=== PATIENT | female | born 1970 ===

== ENCOUNTER → 2020-09-15 11:56 | Outpatient (BNVA) | payer OTHER, SELFPAY | PROVIDERS: PCP Family Medicine; Referring Provider Family Medicine; Visit Provider Orthopaedic Surgery | DX: G89.29 Other chronic pain (principal); M25.561 Pain in right knee; M25.562 Pain in left knee; M79.7 Fibromyalgia | CPT/HCPCS: 20610; 99213; J1100 ==

== ENCOUNTER → 2021-02-10 14:54 | Outpatient (BNVA) | payer OTHER, SELFPAY | PROVIDERS: PCP Family Medicine; Referring Provider Family Medicine; Visit Provider Student in an Organized Health Care Education/Training Program | DX: M79.7 Fibromyalgia (principal) | CPT/HCPCS: 99212 ==

== ENCOUNTER 2021-03-04 13:35 | Emergency (ER) | payer OTHER, SELFPAY ==
[2021-03-04 13:43] VITALS: BP 117/80; PULSE 80; RESP 18; TEMP 528.8; TEMP 984; O2SAT 100; BMI 33.3
[2021-03-04 14:59] VITALS: BP 114/74; PULSE 61; RESP 18; TEMP 36.6; O2SAT 100
[2021-03-04 15:56] LABS: MANUAL DIFF FLAG NO
[2021-03-04 15:57] LABS: Basophils Percent Auto 0.1 % (0-2); Eosinophils Absolute Auto 0.4 X10*3/uL (0.0-0.4); Eosinophils Percent Auto 3.8 % (0-4); Hematocrit 42.6 % (37-47); Hemoglobin 13.5 g/dl (12.0-16.0); Imm Gran Abs Auto 0.02 X10*3/uL (0.00-0.03); Imm Gran Pct Auto 0.2 % (0.0-0.4); Lymphocytes Absolute Auto 2.9 X10*3/uL (1.2-4.9); Lymphocytes Percent Auto 29.6 % (20-40); Mean Corpuscular HGB Conc 31.7 g/dl (31.0-35.0); Mean Corpuscular Hemoglobin 27.3 pg (27.0-33.0); Mean Corpuscular Volume 86.1 fL (80-98); Mean Platelet Volume 10.4 fL (9.4-12.3); Monocytes Absolute Auto 0.8 X10*3/uL (0.1-1.2); Monocytes Percent Auto 8.3 % (2-11); Neutrophils Absolute Auto 5.7 X10*3/uL (2.0-8.3); Platelet Count 248 X10*3/uL (160-400); Red Blood Count 4.95 X10*6/uL (4.20-5.50); White Blood Count 9.8 X10*3/uL (4.8-10.8)
[2021-03-04 15:58] VITALS: BP 120/68; PULSE 54; RESP 18; TEMP 36.4; O2SAT 100
--- NOTE | 2021-03-04 16:14 | ED.GENADULT ---
HPI - General Adult General Chief complaint: Recheck/Abnormal Lab/Rx Stated complaint: HIGH BP Time Seen by Provider: 03/04/21 15:01 Source: patient Mode of arrival: ambulatory Limitations: no limitations History of Present Illness HPI narrative: 51 y/o female with history of hypertension, fibromyalgia, depression who presents to the ED with reports of an episode of high blood pressure at home along with left sided neck soreness and left sided abdominal pain. She states her usual BP is 110/80's. She is on Lisinopril 5 mg. She states earlier today she got some neck pain, palpitations and left sided abdominal pain. She took her blood pressure and it was 133/71 which was very high for her. She got her 2nd COVID vaccine last Saturday and has been having some muscle pains and fatigue since then. She had a fever 1x on but none since. No chest pain, SOB, JOANIE, N/V/D. On arrival her BP is normal. She still reports some mild left flank and abdominal discomfort when she presses on her belly. complaint: high blood pressure Onset (ago): hour(s) Location: head, neck and abdomen Radiation: neck and abdomen Severity: moderate Quality: aching Pain Consistency: intermittent Relieving factors: none Exacerbating factors: movement Associated symptoms: denies other symptoms Treatments prior to arrival: none Related Data Home Medications Medication Instructions Recorded Confirmed [id number]-[id number]-omcljprh 250 1 tab PO Q4-6H PRN 09/14/20 02/10/21 mg-250 mg-65 mg tablet atorvastatin 20 mg tablet 20 mg PO DAILY 09/14/20 02/10/21 baclofen 10 mg tablet 10 mg PO DAILY 09/14/20 02/10/21 buspirone 5 mg tablet 5 mg PO BID 09/14/20 02/10/21 fluoxetine 60 mg tablet 30 mg PO DAILY 09/14/20 02/10/21 lisinopril 5 mg tablet 5 mg PO DAILY 09/14/20 02/10/21 omeprazole 20 mg capsule,delayed 20 mg PO DAILY 09/14/20 02/10/21 release trazodone 50 mg tablet 25 mg PO DAILY 09/14/20 02/10/21 Previous Rx's Medication Instructions Recorded leg brace #1 ea 09/27/20 leg brace #1 ea 09/27/20 leg brace #1 ea 09/28/20 leg brace #1 ea 09/28/20 Allergies Allergy/AdvReac Type Severity Reaction Status Date / Time shrimp [SHRIMP] Allergy Unknown UNKNOWN Verified 03/04/21 13:43 Review of Systems Review of Systems: Constitutional: No Fever, No Chills ENT/Mouth: No sore throat, No Rhinorrhea Cardiovascular: No Chest Pain, No SOB Respiratory: No Cough, No Sputum, No Wheezing, No dyspnea Gastrointestinal: No Nausea, No Vomiting, No Diarrhea, + abdominal Pain, No Hematochezia, No Melena Genitourinary: No Dysuria, No Urinary Frequency, No Hematuria Musculoskeletal: + joint pain, + Myalgias Skin: No Skin Lesions, No rash Neuro: No Weakness, No Numbness, No Dizziness, No Headache Psych: + Anxiety/Panic, + Depression Heme/Lymph: No Bruising, No Lymphadenopathy Endocrine: No Polyuria, No Polydipsia PMFSH Past Medical History Attestation statement: The following information was validated with the patient. Medical History Bilateral knee pain Chronic pain Fibromyalgia Surgical History H/O section H/O lateral meniscus repair of left knee History of hysterectomy Social History Social History (Updated 02/10/21 @ 15:01 by Douglas Nguyen LPN) Alcohol intake: never Smoking Status: Never smoker Advance Directives: Yes Advance Directives Information Provided: Yes Advance Directives on File: No Current occupation: Right Handed Physical Exam Vital Signs: Vital Signs: Last Vital Signs Temp 97.6 F 03/04/21 15:58 Pulse 54 03/04/21 15:58 Resp 18 03/04/21 15:58 BP 120/68 03/04/21 15:58 Pulse Ox 100 03/04/21 15:58 Body Mass Index 33.3 Appearance: Alert. Oriented X3. No acute distress. Eyes: Pupils equal, round and reactive to light. ENT: Pharynx normal. Neck: Normal inspection. Neck supple. CVS: Normal heart rate and rhythm. Pulses normal. Respiratory: No respiratory distress. Breath sounds normal. Abdomen: Obese, Soft with mild LLQ tenderness to deep palpation, no rebound or guarding, normal BS x4, no CVA tenderness Skin: Skin warm and dry. Normal skin color. Normal skin turgor. No rashes. Extremities: No lower extremity edema. Neuro: Oriented X 3. No motor deficit. No sensory deficit. Course Course Course Narrative: 51 y/o female presenting with high blood pressure at home along with brief episode of palpitations in her chest and neck and left sided abdominal pain. She is vitally within normal limits with a reassuring examination. Suspect anxiety is contributing, possible residual effects from recent COVID vaccination. No N/V/D or chest pain. Will get basic lab workup and monitor for any recurrence of symptoms. Reevaluation(s) Reevaluation #1: Lab workup unremarkable. Patient sleeping comfortably. UA pending, if negative will d/c home. Medical Decision Making Lab Data Result diagrams: 03/04/21 15:50 03/04/21 15:50 Labs: Lab Results 03/04/21 03/04/21 03/04/21 Range/Units 15:50 15:50 15:50 WBC 9.8 (4.8-10.8) X10*3/uL RBC 4.95 (4.20-5.50) X10*6/uL Hgb 13.5 (12.0-16.0) g/dl Hct 42.6 (37-47) % MCV 86.1 (80-98) fL MCH 27.3 (27.0-33.0) pg MCHC 31.7 (31.0-35.0) g/dl RDW 14.0 (11.0-16.0) % Plt Count 248 (160-400) X10*3/uL MPV 10.4 (9.4-12.3) fL Immature Gran % (Auto) 0.2 (0.0-0.4) % Neut % (Auto) 58.0 (45-73) % Lymph % (Auto) 29.6 (20-40) % [place] % (Auto) 8.3 (2-11) % Eos % (Auto) 3.8 (0-4) % Baso % (Auto) 0.1 (0-2) % Lymph # (Auto) 2.9 (1.2-4.9) X10*3/uL [place] # (Auto) 0.8 (0.1-1.2) X10*3/uL Eos # (Auto) 0.4 (0.0-0.4) X10*3/uL Baso # (Auto) 0.0 (0.0-0.2) X10*3/uL Abs Immat Gran (auto) 0.02 (0.00-0.03) X10*3/uL Absolute Neuts (auto) 5.7 (2.0-8.3) X10*3/uL Absolute Nucleated RBC 0.000 (0.0-0.012) X10*3/uL Nucleated RBC % (auto) 0.0 (0.0-0.2) /100WBC Hold Blue Top SEE NOTE Sodium 141 (135-145) mmol/L Potassium 3.9 (3.3-5.1) mmol/L Chloride 104 (96-108) mmol/L Carbon Dioxide 26 (22-29) mmol/L Anion Gap 15 (12-20) BUN 12 (9-16) mg/dL Creatinine 0.72 (0.5-1.4) mg/dL Estim Creat Clear Calc 100.5 Estimated GFR > 60 Random Glucose 80 (60-115) mg/dL Calcium 9.1 (8.4-10.2) mg/dL Magnesium 2.1 (1.6-2.6) mg/dL Total Bilirubin 0.3 (0.0-1.0) mg/dL Direct Bilirubin < 0.2 (0.0-0.5) mg/dL AST 23 (5-31) U/L ALT 41 H (0-31) U/L Alkaline Phosphatase 167 H (39-117) U/L Total Protein 7.1 (6.5-8.0) g/dL Albumin 4.2 (3.5-5.0) g/dL Critical Care Time Critical Care Time Critical Care Time: No Discharge Plan Discharge Patient Disposition: Home, Self-Care Additional Instructions: Your blood pressure was NORMAL while you were in the ER. Your blood workup was normal. Recommend following up with your doctor next week as needed. Prescriptions: No Action (DME) Knee Support Brace Misc See Rx Instructions .ROUTE .MEDSUPPLY Qty: 1 RF: 0 (DME) Knee Support Brace Misc See Rx Instructions .ROUTE .MEDSUPPLY Qty: 1 RF: 0 (DME) Knee Support Brace Misc See Rx Instructions .ROUTE .MEDSUPPLY Qty: 1 RF: 0 (DME) Knee Support Brace Misc See Rx Instructions .ROUTE .MEDSUPPLY Qty: 1 RF: 0 omeprazole 20 mg capsule,delayed release(DR/EC) 20 mg PO DAILY RF: 0 Excedrin Migraine 250-250-65 mg tablet 1 tab PO Q4-6H PRNRF: 0 trazodone 50 mg tablet 25 mg PO DAILY RF: 0 buspirone 5 mg tablet 5 mg PO BID RF: 0 baclofen 10 mg tablet 10 mg PO DAILY RF: 0 lisinopril 5 mg tablet 5 mg PO DAILY RF: 0 atorvastatin 20 mg tablet 20 mg PO DAILY RF: 0 fluoxetine 60 mg tablet 30 mg PO DAILY RF: 0
[2021-03-04 16:33] LABS: Alanine Aminotransferase 41 U/L (0-31); Albumin Level 4.2 g/dL (3.5-5.0); Alkaline Phosphatase 167 U/L (39-117); Anion Gap 15 (12-20); Aspartate Amino Transferase 23 U/L (5-31); Bilirubin Direct < 0.2 mg/dL (0.0-0.5); Bilirubin Total 0.3 mg/dL (0.0-1.0); Blood Urea Nitrogen 12 mg/dL (9-16); Calcium 9.1 mg/dL (8.4-10.2); Carbon Dioxide 26 mmol/L (22-29); Chloride 104 mmol/L (96-108); Creatinine Clr Calc Pharmacy 100.5; Estimated Glomerular Filt Rate > 60; Glucose Random 80 mg/dL (60-115); Magnesium 2.1 mg/dL (1.6-2.6); Potassium 3.9 mmol/L (3.3-5.1); Sodium 141 mmol/L (135-145); Total Protein 7.1 g/dL (6.5-8.0)
[2021-03-04 17:18] LABS: Glucose Urine UA NEG (NEG); Leukocyte Esterase Urine NEG (NEG); Nitrite Urine NEG (NEG); Urine Blood NEG (NEG); Urine Ketones NEG (NEG); Urine Protein NEG (NEG-TRACE)
[2021-03-04 17:27] LABS: Appearance Urine CLEAR; Color Urine YELLOW
== END 2021-03-04 17:36 | disposition home or self-care (01) ==
PROVIDERS: Physician Assistant; Emergency Provider Emergency Medicine Emergency Medical Services; PCP Registered Nurse
DX: Z03.89 Encounter for observation for other suspected diseases and conditions ruled out (principal); M54.2 Cervicalgia; Z79.82 Long term (current) use of aspirin; Z79.02 Long term (current) use of antithrombotics/antiplatelets; Z79.899 Other long term (current) drug therapy
CPT/HCPCS: 36415; 80048; 80076; 81003; 83735; 85025; 99283

== ENCOUNTER 2021-07-10 08:57 | Outpatient (REF) | payer OTHER, SELFPAY ==
--- NOTE | ~2021-07-10 | US_ITS ---
EXAMINATION: US ABDOMEN COMPLETE CLINICAL INFORMATION: Abdominal pain. COMPARISON: CT abdomen and pelvis 09/21/2019 TECHNIQUE: Real-time imaging of the abdominal viscera. FINDINGS: PANCREAS: Partially obscured by overlying bowel gas. ABDOMINAL AORTA: The proximal, mid, and distal segments are normal in caliber. INFERIOR VENA CAVA: Visualized portions are normal. LIVER: The liver is normal in size. The liver contour is normal. There is diffuse increased liver parenchymal echogenicity, consistent with hepatic steatosis. No focal hepatic lesion. There is no intrahepatic biliary duct dilatation seen. GALLBLADDER: Surgically absent. COMMON BILE DUCT: Normal in caliber measuring 0.4 cm in diameter. RIGHT KIDNEY: Normal. No hydronephrosis. No renal calculi or focal parenchymal lesions. The kidney measures 11.4 cm in maximum dimension. LEFT KIDNEY: Normal. No hydronephrosis. No renal calculi or focal parenchymal lesions. The kidney measures 10.8 cm in maximum dimension. SPLEEN: Normal. The spleen measures 10.1 cm in maximum dimension. FREE FLUID: None. US/US abdomen complete IMPRESSION: Hepatic steatosis. No new hepatic parenchymal lesion or biliary ductal dilatation. Otherwise unremarkable examination.
== END 2021-07-10 08:58 | disposition home or self-care (01) ==
LOC: HO.US 08:57
PROVIDERS: Visit Provider Registered Nurse
DX: R10.9 Unspecified abdominal pain (principal); Z90.49 Acquired absence of other specified parts of digestive tract
CPT/HCPCS: 76700

== ENCOUNTER 2021-07-17 12:32 | Outpatient (REF) | payer OTHER, SELFPAY ==
--- NOTE | ~2021-07-17 | MM_ITS ---
EXAMINATION: MM SCREENING DIGITAL BREAST TOMOSYNTHESIS, BILATERAL CLINICAL INFORMATION: Screening. Asymptomatic. The lifetime risk of breast cancer based on the Tyrer-Cuzick Model is 7%. COMPARISON: Mammography: 07/16/2020, 01/28/2019, 01/15/2018, 01/06/2018 TECHNIQUE: Digital breast tomosynthesis is performed in both the craniocaudal and mediolateral oblique views along with computer-aided detection (CAD). Synthesized 2D images are generated from the tomosynthesis. FINDINGS: There are scattered areas of fibroglandular density (ACR BI-RADS breast composition Category b). There are no significant masses, abnormal calcifications, or other abnormalities. Parenchymal pattern is similar to prior studies. No developing density. The axilla and skin contours are unremarkable. MM/MM tomosynthesis screening BI IMPRESSION: No mammographic evidence of malignancy. ASSESSMENT: BI-RADS 1: Negative RECOMMENDATION: Routine annual mammography screening. This patient's information was entered into a reminder system with a target due date for their next mammogram.
== END 2021-07-17 12:33 | disposition home or self-care (01) ==
LOC: HO.MAMMO 12:32
PROVIDERS: PCP Registered Nurse; Visit Provider Registered Nurse
DX: Z12.31 Encounter for screening mammogram for malignant neoplasm of breast (principal)
CPT/HCPCS: 77063; 77067

== ENCOUNTER 2021-08-01 12:39 | Outpatient (REF) | payer OTHER, SELFPAY ==
--- NOTE | ~2021-08-01 | XR_ITS ---
EXAMINATION: CHEST AND CERVICAL SPINE. CLINICAL INFORMATION: Cough and neck pain. COMPARISON: None TECHNIQUE: 2 views chest. 7 views cervical spine FINDINGS: CHEST: Both lungs are fairly well-expanded and clear of acute process. Heart size and pulmonary vascularity is normal. No gross bony abnormality seen. CERVICAL SPINE: There is normal cervical lordosis. The vertebral heights, alignment and disc heights are normal. The neural foramina are patent bilaterally. There is no visible fracture, dislocation or subluxation seen. The prevertebral soft tissues are normal. XR/XR cervical spine min 6V IMPRESSION: Unremarkable chest exam. Unremarkable cervical spine exam.
--- NOTE | ~2021-08-01 | XR_ITS ---
EXAMINATION: CHEST AND CERVICAL SPINE. CLINICAL INFORMATION: Cough and neck pain. COMPARISON: None TECHNIQUE: 2 views chest. 7 views cervical spine FINDINGS: CHEST: Both lungs are fairly well-expanded and clear of acute process. Heart size and pulmonary vascularity is normal. No gross bony abnormality seen. CERVICAL SPINE: There is normal cervical lordosis. The vertebral heights, alignment and disc heights are normal. The neural foramina are patent bilaterally. There is no visible fracture, dislocation or subluxation seen. The prevertebral soft tissues are normal. XR/XR chest 2V IMPRESSION: Unremarkable chest exam. Unremarkable cervical spine exam.
[2021-08-02 08:24] LABS: HBsAGNum1 0.31 S/CO (0.00-0.99); Hepatitis B Surface Antigen Negative (Negative)
[2021-08-02 08:26] LABS: ~HepC Num1 0.25 S/CO (0.00-0.79); ~Hepatitis C Antibody Nonreactive (Nonreactive)
== END 2021-08-01 12:40 | disposition home or self-care (01) ==
LOC: HO.XRAY 12:39
PROVIDERS: PCP General Practice; Visit Provider General Practice
DX: M54.2 Cervicalgia (principal); R05 Cough
CPT/HCPCS: 36415; 71046; 72052; 86803; 87340

== ENCOUNTER → 2021-09-26 09:26 | Outpatient (BNVA) | payer OTHER, SELFPAY | PROVIDERS: PCP General Practice; Referring Provider General Practice; Visit Provider Internal Medicine | DX: E78.5 Hyperlipidemia, unspecified (principal); I10 Essential (primary) hypertension; R07.2 Precordial pain; R06.02 Shortness of breath; Z82.49 Family history of ischemic heart disease and other diseases of the circulatory system | CPT/HCPCS: 93005; 99202 ==

== ENCOUNTER → 2021-10-04 10:15 | Outpatient (BNVA) | payer OTHER, SELFPAY | PROVIDERS: PCP General Practice; Visit Provider Internal Medicine Pulmonary Disease | DX: G47.33 Obstructive sleep apnea (adult) (pediatric) (principal); R06.02 Shortness of breath | CPT/HCPCS: 99202 ==

== ENCOUNTER → 2021-11-06 11:01 | Outpatient (REF) | payer OTHER, SELFPAY ==
--- NOTE | 2021-11-06 16:27 | PFT_ITS ---
Forced vital capacity, FEV1, SRC18-99, and MVV are all normal. Post bronchodilator therapy, there is no significant change. Total lung capacity is slightly increased. Residual volume normal. Diffusion capacity normal. CONCLUSION: Normal pulmonary function test. No evidence of obstructive or restrictive pulmonary disorder. Michelle Harp MD MSB/MODL / [id number]
== END ==
LOC: HO.SL 11:01
PROVIDERS: PCP General Practice; Visit Provider Internal Medicine Pulmonary Disease
DX: G47.33 Obstructive sleep apnea (adult) (pediatric) (principal); R06.02 Shortness of breath
CPT/HCPCS: 94060; 94727; 94729; 95806

== ENCOUNTER → 2021-11-30 11:48 | Outpatient (BNVA) | payer OTHER, SELFPAY | PROVIDERS: PCP General Practice; Visit Provider Internal Medicine Pulmonary Disease | DX: J45.909 Unspecified asthma, uncomplicated (principal); G47.33 Obstructive sleep apnea (adult) (pediatric) | CPT/HCPCS: 99212 ==

== ENCOUNTER 2022-02-07 10:21 | Emergency (ER) | payer OTHER, SELFPAY ==
--- NOTE | ~2022-02-07 | CT_ITS ---
EXAMINATION: CT ABDOMEN AND PELVIS WITHOUT CONTRAST CLINICAL INFORMATION: Lower abdominal pain COMPARISON: Ultrasound abdomen 07/10/2021 None TECHNIQUE: Multidetector volumetric imaging was performed from the superior aspect of the liver through the pubic symphysis. Sagittal and coronal reformatted images were obtained on the technologist's workstation. Patient refused IV contrast. This CT examination was performed using dose optimization techniques as appropriate, variously including the following: *Automated exposure control *Adjustment of mA and/or kV according to patient size (this includes techniques or standardized protocols for targeted exams where dose is matched to indication/reason for exam; i.e. extremities or head) *Use of iterative reconstruction technique DLP: 709. mGy-cm FINDINGS: LUNG BASES: There is minimal groundglass attenuation lung bases likely compressive atelectasis. Speck small hiatal hernia. LIVER, GALLBLADDER, AND BILIARY TREE: The liver is normal in size, shape, and attenuation. No focal hepatic lesion or biliary ductal dilatation is present. The gallbladder has been surgically removed. PANCREAS: Unremarkable. SPLEEN: Unremarkable. ADRENAL GLANDS: Unremarkable. KIDNEYS AND URETERS: The kidneys are normal in size, shape, and attenuation. No hydronephrosis, hydroureter, or calculi seen. No perinephric stranding. BLADDER: Unremarkable. GASTROINTESTINAL TRACT: There is scattered stool and gas seen throughout the colon without any significant distention. The small bowel loops are normal caliber. Appendix is normal caliber. ABDOMINAL WALL: No significant hernia is appreciated. LYMPH NODES: Normal. VASCULAR: Unremarkable. PELVIC VISCERA: Unremarkable. OSSEOUS STRUCTURES: No lytic or sclerotic process seen. CT/CT abdomen pelvis wo con IMPRESSION: No acute intra-abdominal process seen. Mild constipation. Fleischner guidelines were followed.
[2022-02-07 10:23] VITALS: BP 115/67; PULSE 65; RESP 18; TEMP 36.4; O2SAT 100; BMI 45.4
--- NOTE | 2022-02-07 11:04 | ED_ITS ---
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 Mode of arrival: ambulatory Limitations: no limitations History of Present Illness HPI narrative: 3 days of burning lower abdominal pain and black stools - did take pepto bismol at one point, has hx of ventral hernias as well c/o pain at those sites MD elicited complaint: abdominal pain Pertinent past history: gastritis Onset (ago): day(s) (3) Pain Consistency: constant Location: periumbilical Severity: moderate Quality: burning Radiation: none Migration to: no migration Exacerbating factors: eating Relieving factors: nothing Associated symptoms: nausea and melena Treatments prior to arrival: antacids Related Data Home Medications Medication Instructions Recorded Confirmed qjobkdr-fyjesvmfmzybj-icnwzarq 250 1 tab PO Q4-6H PRN 09/14/20 09/26/21 mg-250 mg-65 mg tablet (Excedrin Migraine) atorvastatin 20 mg tablet 20 mg PO DAILY 09/14/20 09/26/21 baclofen 10 mg tablet 10 mg PO DAILY 09/14/20 09/26/21 buspirone 5 mg tablet 5 mg PO BID 09/14/20 09/26/21 fluoxetine 60 mg tablet 30 mg PO DAILY 09/14/20 09/26/21 lisinopril 5 mg tablet 5 mg PO DAILY 09/14/20 09/26/21 omeprazole 20 mg capsule,delayed 20 mg PO DAILY 09/14/20 09/26/21 release trazodone 50 mg tablet 25 mg PO DAILY 09/14/20 09/26/21 Previous Rx's Medication Instructions Recorded leg brace (Knee Support Brace) #1 ea 09/27/20 leg brace (Knee Support Brace) #1 ea 09/28/20 fluticasone furoate 200 1 inh INHALATION DAILY 30 Days #1 11/30/21 mcg-vilanterol 25 mcg/dose ea inhalation powder (Breo Ellipta) lactulose 10 gram/15 mL oral 10 g (15 mL) PO DAILY PRN #237 ml 02/07/22 solution Allergies Allergy/AdvReac Type Severity Reaction Status Date / Time shrimp [SHRIMP] Allergy Unknown UNKNOWN Verified 11/30/21 11:50 Review of Systems Review of Systems Constitutional : No Weight loss, No Fever, No Chills ENT/Mouth : No sore throat, No Rhinorrhea Eyes: No Swelling, No Redness Cardiovascular : No Chest Pain, No SOB, NoEdema Respiratory : No Cough, No Sputum, No Wheezing Gastrointestinal : Positive Nausea, no Vomiting, no Diarrhea, positive abdominal Pain, No Hematochezia, pos Melena Genitourinary : No Dysuria, No Urinary Frequency, No Hematuria, No Urgency Musculoskeletal : No joint pain, No Myalgias, No Joint Swelling Skin : No Skin Lesions, No rash Neuro : No Weakness, No Numbness, No Dizziness, No Headache Psych : No Anxiety/Panic, No Depression Heme/Lymph: No Bruising, No Lymphadenopathy Endocrine : No Polyuria, No Polydipsia All other systems reviewed and are negative. [facility] Past Medical History Attestation statement: The following information was validated with the patient. Medical History Bilateral knee pain Chronic pain Essential hypertension Family history of coronary artery disease Fibromyalgia Other and unspecified hyperlipidemia Surgical History H/O section H/O lateral meniscus repair of left knee History of cholecystectomy History of hysterectomy Family History Family History (Updated 09/26/21 @ 09:41 by MARISOL Shepard) Father History of open heart surgery Brother Hypertension Social History Social History Alcohol intake: never Patient Tobacco Use Status: Never used Tobacco Advance Directives: No Advance Directives Information Provided: No Patient : No Current occupation: Right Handed Physical Exam ED Vital Signs: Vital Signs - 24 hr 02/07/22 10:23 02/07/22 11:13 Temperature 97.5 F Pulse Rate 65 65 Respiratory Rate 18 16 Blood Pressure 115/67 110/71 Pulse Oximetry 100 100 BMI result Body Mass Index 45.4 Appearance: Alert. Oriented X3. No acute distress. Eyes: Pupils equal, round and reactive to light. ENT: Pharynx normal. Neck: Normal inspection. Neck supple. CVS: Normal heart rate and rhythm. Pulses normal. Respiratory: No respiratory distress. Breath sounds normal. Abdomen: Soft with mild distention ttp in lower abdomen no mass felt Rectal: light brown stool Skin: Skin warm and dry. Normal skin color. Normal skin turgor. Extremities: No lower extremity edema. No calf ttp Neuro: Oriented X 3. No motor deficit. No sensory deficit. Course Course Course Narrative: labs stable eating yogurt, CT scan negative, refused pain medications, guiac negative MDM - Abdominal Pain MDM Narrative Medical decision making narrative: 51 yo female with hx of GERD on omeprazole, allergic rhinitis, asthma, mirgraines, LEAH, chest pain, HLD here with c/o lower abdominal pain with dark stools at this time will need labs, CT scan for mass, dark stools could be related to pepto bismol - will obtain guiac, IVF IV morphine for pain, GI cocktail. Dispo per results and findings. Lab Data Result diagrams: 02/07/22 11:06 02/07/22 11:06 Labs: Lab Results 02/07/22 02/07/22 02/07/22 Range/Units 11:06 11:06 11:42 WBC 9.4 (4.8-10.8) X10*3/uL RBC 4.57 (4.20-5.50) X10*6/uL Hgb 12.3 (12.0-16.0) g/dl Hct 40.0 (37.0-47.0) % MCV 87.5 (80.0-98.0) fL MCH 26.9 L (27.0-33.0) pg MCHC 30.8 L (31.0-35.0) g/dl RDW 14.2 (11.0-16.0) % Plt Count 276 (160-400) X10*3/uL MPV 10.3 (9.4-12.3) fL Immature Gran % (Auto) 0.2 (0.0-0.4) % Neut % (Auto) 59.5 (45-73) % Lymph % (Auto) 30.4 (20-40) % [place] % (Auto) 7.2 (2-11) % Eos % (Auto) 2.5 (0-4) % Baso % (Auto) 0.2 (0-2) % Lymph # (Auto) 2.9 (1.2-4.9) X10*3/uL [place] # (Auto) 0.7 (0.1-1.2) X10*3/uL Eos # (Auto) 0.2 (0.0-0.4) X10*3/uL Baso # (Auto) 0.0 (0.0-0.2) X10*3/uL Abs Immat Gran (auto) 0.02 (0.00-0.03) X10*3/uL Absolute Neuts (auto) 5.6 (2.0-8.3) x10*3/uL Absolute Nucleated RBC 0.000 (0.0-0.012) X10*3/uL Nucleated RBC % (auto) 0.0 (0.0-0.2) /100WBC Sodium 139 (135-145) mmol/L Potassium 4.5 (3.3-5.1) mmol/L Chloride 103 (96-108) mmol/L Carbon Dioxide 28 (22-29) mmol/L Anion Gap 13 (12-20) BUN 15 (9-16) mg/dL Creatinine 0.72 (0.5-1.4) mg/dL Estim Creat Clear Calc 119.4 Estimated GFR > 60 Random Glucose 101 (60-115) mg/dL Calcium 9.8 D (8.4-10.2) mg/dL Total Bilirubin 0.5 (0.0-1.0) mg/dL AST 17 (5-31) U/L ALT 28 (0-31) U/L Alkaline Phosphatase 131 H D (39-117) U/L Total Protein 7.3 (6.5-8.0) g/dL Albumin 4.2 (3.5-5.0) g/dL Lipase 42 (8-78) U/L Stool Occult Blood NEGATIVE (NEGATIVE) ECG Data Attestation: I personally reviewed and interpreted this ECG as follows: ECG interpretation date: 02/07/22 ECG interpretation time: 11:41 Interpretation: Rate: 50 Rhythm: sinus bradycardia [place]: normal Normal P waves. Normal HARSH. Normal QRS complex. ST T wave : normal no EMELIA qTC: normal prior studies: no acute ischemia The study has been interpreted contemporaneously by me. . Discharge Plan Discharge Clinical Impression: Abdominal pain Qualifiers: Abdominal location: lower abdomen, unspecified Qualified Code(s): R10.30 - Low er abdominal pain, unspecified Constipation Qualifiers: Constipation type: unspecified constipation type Qualified Code(s): K59.00 - Constipation, unspecified Gastritis Qualifiers: Gastritis type: unspecified gastritis Chronicity: acute Gastritis bleeding: without bleeding Qualified Code(s): K29.00 - Acute gastritis without bleeding Patient Disposition: Home, Self-Care Instructions: Gastritis (ED), Constipation (ED), Abdominal Pain (ED) Additional Instructions: OMEPRAZOLE 2OMG 2 VECES AL MAGANA POR YAMILETH MAGANA Prescriptions: New lactulose 10 gram/15 mL solution 10 g PO DAILY PRN (Reason: constipation) Qty: 237 0RF No Action (DME) Knee Support Brace Misc See Rx Instructions .ROUTE .MEDSUPPLY Qty: 1 0RF Rx Instructions: SWETA-PULL LITE, RT, L (DME) Knee Support Brace Misc See Rx Instructions .ROUTE .MEDSUPPLY Qty: 1 0RF Rx Instructions: SWETA-PULL LITE, LT, L omeprazole 20 mg capsule,delayed release(DR/EC) 20 mg PO DAILY 0RF Excedrin Migraine 250-250-65 mg tablet 1 tab PO Q4-6H PRN0RF trazodone 50 mg tablet 25 mg PO DAILY 0RF buspirone 5 mg tablet 5 mg PO BID 0RF baclofen 10 mg tablet 10 mg PO DAILY 0RF lisinopril 5 mg tablet 5 mg PO DAILY 0RF atorvastatin 20 mg tablet 20 mg PO DAILY 0RF fluoxetine 60 mg tablet 30 mg PO DAILY 0RF Breo Ellipta 200-25 mcg/dose blister with device 1 inh inhalation DAILY 30 Days Qty: 1 6RF Referrals: Brooklyn Jalloh MD [Primary Care Provider] - 2 days (IF NOT BETTER) Print Language: Ethiopian
[2022-02-07 11:10] LABS: MANUAL DIFF FLAG NO
[2022-02-07 11:11] LABS: Basophils Percent Auto 0.2 % (0-2); Eosinophils Absolute Auto 0.2 X10*3/uL (0.0-0.4); Eosinophils Percent Auto 2.5 % (0-4); Hemoglobin 12.3 g/dl (12.0-16.0); Imm Gran Abs Auto 0.02 X10*3/uL (0.00-0.03); Imm Gran Pct Auto 0.2 % (0.0-0.4); Lymphocytes Absolute Auto 2.9 X10*3/uL (1.2-4.9); Lymphocytes Percent Auto 30.4 % (20-40); Mean Corpuscular HGB Conc 30.8 g/dl (31.0-35.0); Mean Corpuscular Hemoglobin 26.9 pg (27.0-33.0); Mean Corpuscular Volume 87.5 fL (80.0-98.0); Mean Platelet Volume 10.3 fL (9.4-12.3); Monocytes Absolute Auto 0.7 X10*3/uL (0.1-1.2); Monocytes Percent Auto 7.2 % (2-11); Neutrophils Absolute Auto 5.6 x10*3/uL (2.0-8.3); Neutrophils Percent Auto 59.5 % (45-73); Platelet Count 276 X10*3/uL (160-400); Red Blood Count 4.57 X10*6/uL (4.20-5.50); Red Cell Distribution Width 14.2 % (11.0-16.0); White Blood Count 9.4 X10*3/uL (4.8-10.8)
[2022-02-07 11:13] VITALS: BP 110/71; PULSE 65; RESP 16; O2SAT 100
--- NOTE | 2022-02-07 11:23 | ECG_ITS ---
Test Reason : abdominal pain Blood Pressure : / mmHG Vent. Rate : 050 BPM Atrial Rate : 050 BPM P-R Int : 194 ms QRS Dur : 078 ms QT Int : 420 ms P-R-T Axes : 039 010 016 degrees QTc Int : 382 ms Sinus bradycardia Otherwise normal ECG No previous ECGs available Referred By: Katelynn Chandra Electronically Signed By:MARILYN BARNES
[2022-02-07 11:29] LABS: Alanine Aminotransferase 28 U/L (0-31); Albumin Level 4.2 g/dL (3.5-5.0); Alkaline Phosphatase 131 U/L (39-117); Anion Gap 13 (12-20); Aspartate Amino Transferase 17 U/L (5-31); Bilirubin Total 0.5 mg/dL (0.0-1.0); Blood Urea Nitrogen 15 mg/dL (9-16); Calcium 9.8 mg/dL (8.4-10.2); Carbon Dioxide 28 mmol/L (22-29); Chloride 103 mmol/L (96-108); Creatinine Clr Calc Pharmacy 119.4; Estimated Glomerular Filt Rate > 60; Glucose Random 101 mg/dL (60-115); Lipase 42 U/L (8-78); Potassium 4.5 mmol/L (3.3-5.1); Sodium 139 mmol/L (135-145); Total Protein 7.3 g/dL (6.5-8.0)
[2022-02-07 11:52] LABS: OBS Int Ctl Valid YES; OBS1 NEGATIVE (NEGATIVE)
[2022-02-07] MEDS: Morphine Sulfate 4 MG/ML CARTRIDGE IVPUSH (11:56)
[2022-02-07] MEDS: Magnesium Hydrox/Alum Hydrox 30 ML ORAL.SUSP 15 ML PO (11:57)
[2022-02-07] MEDS: Lidocaine HCl Viscous 2 % 15 ML SOLUTION MUCOUS MEM (11:57)
[2022-02-07] MEDS: ondansetron HCL 4 MG/2 ML VIAL IVPUSH (11:57)
--- NOTE | 2022-02-07 12:07 | PC.NURSE ---
PT UNCOMFORTABLE WITH IV PLACEMENT AND WANTED REMOVED, THERE APPEARS TO BE NO S/SX OF INFILTRATION NOTED. REFUSED MORPHINE AND ZORFAN NOT ENOUGH PAIN AT THIS TIME.
== END 2022-02-07 13:33 | disposition home or self-care (01) ==
PROVIDERS: Emergency Provider Emergency Medicine; PCP General Practice
DX: R10.33 Periumbilical pain (principal); R10.30 Lower abdominal pain, unspecified; K59.00 Constipation, unspecified; K29.00 Acute gastritis without bleeding; Z79.899 Other long term (current) drug therapy
CPT/HCPCS: 36415; 74176; 80053; 82272; 83690; 85025; 93005; 96361; 96374; 96375; 99283; 99284; J2270; J2405

== ENCOUNTER → 2022-02-13 15:03 | Outpatient (BNVA) | payer OTHER, SELFPAY | PROVIDERS: PCP General Practice; Visit Provider Nurse Practitioner Family | DX: M79.7 Fibromyalgia (principal) | CPT/HCPCS: 99212 ==

== ENCOUNTER → 2022-05-21 10:47 | Outpatient (BNVA) | payer OTHER, SELFPAY | PROVIDERS: PCP General Practice; Visit Provider Internal Medicine Pulmonary Disease | DX: J45.909 Unspecified asthma, uncomplicated (principal); G47.33 Obstructive sleep apnea (adult) (pediatric); Z79.899 Other long term (current) drug therapy | CPT/HCPCS: 99212 ==

== ENCOUNTER 2022-06-01 12:38 | Emergency (ER) | payer OTHER, SELFPAY ==
--- NOTE | ~2022-06-01 | XR_ITS ---
EXAMINATION: XR CHEST CLINICAL INFORMATION: Cough. COMPARISON: Chest done on 08/01/2021. TECHNIQUE: 2 views of the chest were obtained. FINDINGS: No significant abnormality is noted involving the heart, lungs, mediastinum, or soft tissues. Mild multilevel degenerative spondylosis. XR/XR chest 2V IMPRESSION: No radiographic evidence of acute cardiopulmonary disease, unchanged since 08/01/2021.
[2022-06-01 12:52] VITALS: BP 144/86; PULSE 81; RESP 18; TEMP 36.4; O2SAT 98; BMI 34.2
--- NOTE | 2022-06-01 15:21 | ED_ITS ---
HPI - URI/Sore Throat General Chief Complaint: Upper Respiratory Symptoms Stated Complaint: Sore throat/back pain Time Seen by Provider: 06/01/22 15:20 History of Present Illness HPI Narrative: Patient complains of cough body aches and fatigue for several days, was seen at [facility] yesterday with negative COVID test and told she probably has a viral illness Related Data Home Medications Medication Instructions Recorded Confirmed atorvastatin 20 mg tablet 20 mg PO DAILY 09/14/20 09/26/21 baclofen 10 mg tablet 10 mg PO DAILY 09/14/20 09/26/21 buspirone 5 mg tablet 5 mg PO BID 09/14/20 09/26/21 fluoxetine 60 mg tablet 30 mg PO DAILY 09/14/20 09/26/21 lisinopril 5 mg tablet 5 mg PO DAILY 09/14/20 09/26/21 omeprazole 20 mg capsule,delayed 20 mg PO DAILY 09/14/20 09/26/21 release trazodone 50 mg tablet 25 mg PO DAILY 09/14/20 09/26/21 acetaminophen 650 mg 650 mg PO Q8H 02/13/22 tablet,extended release (Tylenol 8 Hour) gabapentin 100 mg capsule 100 mg PO DAILY 02/13/22 Previous Rx's Medication Instructions Recorded leg brace (Knee Support Brace) #1 ea 09/27/20 leg brace (Knee Support Brace) #1 ea 09/28/20 fluticasone furoate 200 1 inh inhalation DAILY 30 days #1 11/30/21 mcg-vilanterol 25 mcg/dose ea inhalation powder (Breo Ellipta) lactulose 10 gram/15 mL oral 10 g (15 mL) PO DAILY PRN 02/07/22 solution constipation #237 mL albuterol sulfate 90 mcg/actuation 2 puff PO QID PRN shortness of 05/21/22 aerosol inhaler (Ventolin HFA) breath or wheezing 30 days #1 ea azithromycin 250 mg tablet See Rx Instructions PO .COMPLEX #6 06/01/22 (Zithromax Z-Danish) tabs Allergies Allergy/AdvReac Type Severity Reaction Status Date / Time shrimp [SHRIMP] Allergy Unknown UNKNOWN Verified 05/21/22 10:50 Review of Systems Review of Systems: Positive for cough fever, sputum for several days Negatives no chills no dizziness no fainting no feeling faint no confusion no headache no difficulty breathing or swallowing no neck pain no stiff neck no chest pain no shortness of breath no palpitations no abdominal pain no nausea vomiting or diarrhea no calf pain or swelling, no leg swelling, no skin rash Yes all other systems are reviewed and are negative [facility] Past Medical History Source: nursing notes reviewed Medical History Bilateral knee pain Chronic pain Essential hypertension Family history of coronary artery disease Fibromyalgia Other and unspecified hyperlipidemia Surgical History H/O section H/O lateral meniscus repair of left knee History of cholecystectomy History of hysterectomy Family History Family History Father History of open heart surgery Brother Hypertension Social History Social History Household Members Other:: son Housing: Apartment Alcohol intake: never Patient Tobacco Use Status: Never used Tobacco Advance Directives: No Advance Directives Information Provided: No Current occupational status: disabled Current occupation: Right Handed Physical Exam Vital Signs: Vital Signs: Last Vital Signs Temp 97.6 F 06/01/22 12:52 Pulse 81 06/01/22 12:52 Resp 18 06/01/22 12:52 BP 144/86 H 06/01/22 12:52 Pulse Ox 98 06/01/22 12:52 O2 Del Method 06/01/22 12:52 BMI result Body Mass Index 34.2 General appearance is no acute distress The eyes no redness or discharge The pharynx is normal without redness swelling or exudate, membranes are moist Neck is supple Chest is clear to auscultation bilateral Heart no murmur Abdomen soft nontender Extremities full range of motion x4 No calf swelling or tenderness no edema Skin no rash Neuro no gross focal deficits Course Course Course Narrative: Patient with worsening cough with increased sputum is given prescription for antibiotic Chest x-ray was normal, COVID test and flu test were negative as well as negative strep throat test MDM - URI/Sore Throat Lab Data Labs: Lab Results 06/01/22 06/01/22 06/01/22 Range/Units 15:31 15:31 15:31 COVID-19 (RISHI) Negative (Negative) COVID-19 Clin Com See Note Influenza Type A (ERIKA) Negative (Negative) Influenza Type B (ERIKA) Negative (Negative) Influenza A & B Note See Note S. pyogenes GrpA ERIKA Negative (Negative) Discharge Plan Discharge Clinical Impression: Bronchitis Patient Disposition: Home, Self-Care Additional Instructions: COVID testing flu testing and strep testing were all negative, x-ray was normal As cough with sputum is worsening we are treating for possible bronchitis with antibiotics Zithromax Follow with your doctor Return any time any worse condition or any concerns Prescriptions: New azithromycin [Zithromax Z-Danish] 250 mg tablet See Rx Instructions .ROUTE .COMPLEX Qty: 6 0RF Rx Instructions: For 250 mg dose pack: take 500 mg today (day 1), then 250 mg for 4 days (days 2-5) No Action (DME) Knee Support Brace Misc See Rx Instructions .ROUTE .MEDSUPPLY Qty: 1 0RF Rx Instructions: SWETA-PULL LITE, RT, L (DME) Knee Support Brace Misc See Rx Instructions .ROUTE .MEDSUPPLY Qty: 1 0RF Rx Instructions: SWETA-PULL LITE, LT, L lactulose 10 gram/15 mL solution 10 g PO DAILY PRN (Reason: constipation) Qty: 237 0RF omeprazole 20 mg capsule,delayed release(DR/EC) 20 mg PO DAILY trazodone 50 mg tablet 25 mg PO DAILY buspirone 5 mg tablet 5 mg PO BID baclofen 10 mg tablet 10 mg PO DAILY lisinopril 5 mg tablet 5 mg PO DAILY atorvastatin 20 mg tablet 20 mg PO DAILY fluoxetine 60 mg tablet 30 mg PO DAILY gabapentin 100 mg capsule 100 mg PO DAILY acetaminophen [Tylenol 8 Hour] 650 mg tablet extended release 650 mg PO Q8H Breo Ellipta 200-25 mcg/dose blister with device 1 inh inhalation DAILY 30 Days Qty: 1 6RF albuterol sulfate [Ventolin HFA] 90 mcg/actuation HFA aerosol inhaler 2 puff PO QID PRN (Reason: shortness of breath or wheezing) 30 Days Qty: 1 6RF Stand Alone Forms: Work/School Release Interventions: ED Discharge Assessment Last Done: 06/01/22 16:40 Discharge Date/Time: 06/01/22 16:42
[2022-06-01 15:49] LABS: Strep A Nucleic Acid Negative (Negative)
[2022-06-01 15:53] LABS: Influenza A Negative (Negative); Influenza B2 Negative (Negative)
[2022-06-01 15:54] LABS: COVID-19 Test Negative (Negative); IDNOW Serial# 16C4AD1C
== END 2022-06-01 16:42 | disposition home or self-care (01) ==
PROVIDERS: Physician Assistant Medical; Emergency Provider Emergency Medicine; PCP General Practice
DX: J40 Bronchitis, not specified as acute or chronic (principal); Z20.822 Contact with and (suspected) exposure to COVID-19; J02.9 Acute pharyngitis, unspecified
CPT/HCPCS: 71046; 87502; 87635; 87651; 99283

== ENCOUNTER 2022-07-31 12:13 | Outpatient (REF) | payer OTHER, SELFPAY ==
--- NOTE | ~2022-07-31 | MM_ITS ---
EXAMINATION: MM SCREENING DIGITAL BREAST TOMOSYNTHESIS, BILATERAL CLINICAL INFORMATION: Screening. Asymptomatic. The lifetime risk of breast cancer based on the Tyrer-Cuzick Model is 5%. COMPARISON: Mammography: 07/17/2021, 07/16/2020, 01/28/2019, 09/05/2018 TECHNIQUE: Digital breast tomosynthesis is performed in both the craniocaudal and mediolateral oblique views along with computer-aided detection (CAD). Synthesized 2D images are generated from the tomosynthesis. Additional right MLO view is provided. FINDINGS: There are scattered areas of fibroglandular density (ACR BI-RADS breast composition Category b). Parenchymal pattern is similar to prior exams and there is no developing density or interval mass or architectural abnormality. There are scattered punctate and vascular calcifications in each breast. The skin contours are unremarkable. There are some new loosely grouped calcifications posterior medial right breast. Patient will be recalled for additional magnification views. MM/MM tomosynthesis screening BI IMPRESSION: Right: -Loosely grouped calcifications posterior medial breast. Left: -No mammographic evidence of malignancy. ASSESSMENT: BI-RADS 0: Incomplete - Need Additional Imaging Evaluation RECOMMENDATION: 1. Additional views of the right breast (magnification CC, magnification LM). 2. Radiology department staff will contact the patient for additional imaging. This patient's information was entered into a reminder system with a target due date for their next mammogram.
== END 2022-07-31 12:14 | disposition home or self-care (01) ==
LOC: HO.MAMMO 12:13
PROVIDERS: PCP General Practice; Visit Provider General Practice
DX: Z12.31 Encounter for screening mammogram for malignant neoplasm of breast (principal)
CPT/HCPCS: 77063; 77067

== ENCOUNTER 2022-08-06 08:09 | Outpatient (REF) | payer OTHER, SELFPAY ==
--- NOTE | ~2022-08-06 | MM_ITS ---
EXAMINATION: MM DIAGNOSTIC DIGITAL MAMMOGRAPHY, RIGHT CLINICAL INFORMATION: Recall from screening for loosely grouped calcifications posterior medial right breast. COMPARISON: Mammography: 07/31/2022, 07/17/2021, 07/16/2020 TECHNIQUE: Digital mammography is performed in the following views: Magnification CC x2, magnification LM x2. FINDINGS: There are scattered areas of fibroglandular density (ACR BI-RADS breast composition Category b). The additional views confirm loosely grouped calcifications posterior 3:00 position, at least 10 in number, which vary in size. Results are discussed with the patient at time of visit, using an armhole sewer. Management options were discussed. Patient prefers stereotactic sampling. MM/MM added views RT IMPRESSION: Loosely grouped calcifications posterior 3:00 position which vary in size. ASSESSMENT: BI-RADS 4: Suspicious RECOMMENDATION: Stereotactic sampling right breast calcifications. This patient's information was entered into a reminder system with a target due date for their next mammogram.
== END 2022-08-06 08:10 | disposition home or self-care (01) ==
LOC: HO.MAMMO 08:09
PROVIDERS: PCP General Practice; Visit Provider General Practice
DX: R92.1 Mammographic calcification found on diagnostic imaging of breast (principal)
CPT/HCPCS: 77065

== ENCOUNTER → 2022-08-07 09:26 | Outpatient (BNVA) | payer OTHER, SELFPAY | PROVIDERS: PCP General Practice; Visit Provider Surgery | DX: R92.1 Mammographic calcification found on diagnostic imaging of breast (principal) | CPT/HCPCS: 99202 ==

== ENCOUNTER 2022-08-08 09:52 | Outpatient (REF) | payer OTHER, SELFPAY ==
--- NOTE | ~2022-08-08 | MM_ITS ---
EXAMINATION: Attempted stereotactic biopsy of the right breast. Patient was unable to continue with procedure due to pain while being positioned on the table. A single stereotactic image was obtained.
== END 2022-08-08 09:53 | disposition home or self-care (01) ==
LOC: HO.MAMMO 09:52
PROVIDERS: PCP General Practice; Visit Provider Surgery
DX: R92.8 Other abnormal and inconclusive findings on diagnostic imaging of breast (principal)
CPT/HCPCS: 19081

== ENCOUNTER → 2022-09-19 11:01 | Outpatient (BNVA) | payer OTHER, SELFPAY | PROVIDERS: PCP General Practice; Visit Provider Internal Medicine Pulmonary Disease | DX: J45.909 Unspecified asthma, uncomplicated (principal); G47.33 Obstructive sleep apnea (adult) (pediatric) | CPT/HCPCS: 99212 ==

== ENCOUNTER 2022-09-24 13:42 | Emergency (ER) | payer OTHER, SELFPAY ==
--- NOTE | ~2022-09-24 | XR_ITS ---
EXAMINATION: XR CHEST CLINICAL INFORMATION: Shortness of breath COMPARISON: 06/01/2022 TECHNIQUE: 2 views of the chest were obtained. FINDINGS: There is asymmetric density from prominent osteophytosis at the left first costosternal junction. Low lung volumes. No focal consolidation or mass. Normal heart size. No pleural effusion or pneumothorax. XR/XR chest 2V IMPRESSION: No acute pulmonary disease.
[2022-09-24 13:45] VITALS: BP 108/70; PULSE 90; RESP 18; TEMP 36.6; O2SAT 97; BMI 33.2
[2022-09-24 14:34] LABS: Influenza A PCR NEGATIVE (Negative); Influenza B PCR NEGATIVE (Negative); Resp Syncy Virus RNA Qual PCR POSITIVE (Negative); SARS COV2 PCR INHOUSE NEGATIVE (Negative)
--- NOTE | 2022-09-24 17:28 | ED_ITS ---
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 Patient states that over the last few days she has had a cough. 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 Patient denies any dizziness, lightheadedness, abdominal pain, nausea, vomiting, fever, chills, blurry vision, double vision, loss of vision, chest pain, difficulty breathing, shortness of breath, back pain, night sweats, pain with urination, increased urinary frequency, increased urinary urgency, blood in her urine or stool, syncope or a near syncopal episode, recent trauma or falls, bowel incontinence, bladder incontinence, bowel retention, bladder retention, or any other complaints at this time. Onset (ago): day(s) (5) Severity: mild Severity scale (1-10): 3 Relieving factors: none Exacerbating factors: none Associated symptoms: cough Treatments prior to arrival: none Related Data Home Medications Medication Instructions Recorded Confirmed atorvastatin 20 mg tablet 20 mg PO DAILY 09/14/20 08/07/22 baclofen 10 mg tablet 10 mg PO DAILY 09/14/20 08/07/22 buspirone 5 mg tablet 5 mg PO BID 09/14/20 08/07/22 fluoxetine 60 mg tablet 30 mg PO DAILY 09/14/20 08/07/22 lisinopril 5 mg tablet 5 mg PO DAILY 09/14/20 08/07/22 omeprazole 20 mg capsule,delayed 20 mg PO DAILY 09/14/20 08/07/22 release trazodone 50 mg tablet 25 mg PO DAILY 09/14/20 08/07/22 acetaminophen 650 mg 650 mg PO Q8H 02/13/22 08/07/22 tablet,extended release (Tylenol 8 Hour) gabapentin 100 mg capsule 100 mg PO DAILY 02/13/22 08/07/22 Previous Rx's Medication Instructions Recorded leg brace (Knee Support Brace) #1 ea 09/27/20 leg brace (Knee Support Brace) #1 ea 11/04/20 lactulose 10 gram/15 mL oral 10 g (15 mL) PO DAILY PRN 02/07/22 solution constipation #237 mL albuterol sulfate 90 mcg/actuation 2 puff PO QID PRN shortness of 05/21/22 aerosol inhaler (Ventolin HFA) breath or wheezing 30 days #1 ea Breo Ellipta 200 mcg-25 mcg/dose 1 ea PO DAILY #60 ea 07/02/22 powder for inhalation (fluticasone furoate-vilanterol) azithromycin 250 mg tablet See Rx Instructions PO .COMPLEX 5 09/19/22 days #6 tabs prednisone 20 mg tablet 20 mg PO DAILY 12 days #26 tabs 09/24/22 Allergies Allergy/AdvReac Type Severity Reaction Status Date / Time shrimp [SHRIMP] Allergy Unknown UNKNOWN Verified 09/19/22 11:07 Review of Systems Constitutional: Constitutional: Reports no additional constitutional complaints, Denies chills, Denies fever(s) and Denies night sweats Eyes: Eyes: Reports no additional eye complaints, Denies blurry vision, Denies change in vision, Denies diplopia, Denies eye discharge, Denies loss of vision and Denies eye pain ENT: Denies dizziness Cardiovascular: Cardiovascular: Reports no additional cardiovascular complaints, Denies chest pain, Denies lightheadedness, Denies Loss of Consciousness and Denies dyspnea Respiratory: Respiratory: Reports no additional respiratory complaints, Reports cough and Denies dyspnea Gastrointestinal: Gastrointestinal: Reports no additional gastrointestinal complaints, Denies abdominal pain, Denies melena, Denies hematochezia, Denies change in bowel habits and Denies change in stool character Genitourinary: Genitourinary: Denies hematuria, Denies urinary frequency, Denies dysuria, Denies urinary incontinence, Denies urinary hesitancy and Denies urinary urgency Musculoskeletal: Musculoskeletal: Reports no additional musculoskeletal complaints, Denies numbness and Denies tingling Neurologic: Denies dizziness, Denies loss of vision, Denies numbness and Denies tingling Psychiatric: Psychiatric: Reports no additional psychiatric complaints Endocrine: Endocrine: Reports no additional endocrine complaints Hematologic/Lymphatic: Hematologic/Lymphatic: Reports no additional hematologic/lymphatic complaints Allergic/Immunologic: Allergic/Immunologic: Reports no additional allergic/immunologic complaints PMFSH Past Medical History Attestation statement: The following information was validated with the patient. Source: old records reviewed Medical History Bilateral knee pain Chronic pain Essential hypertension Family history of coronary artery disease Fibromyalgia Other and unspecified hyperlipidemia Surgical History H/O section H/O lateral meniscus repair of left knee History of cholecystectomy History of hysterectomy Family History Family History Father History of open heart surgery Brother Hypertension Mother Colon cancer Social History Social History Household Members Other:: son Housing: Apartment Alcohol intake: never Patient Tobacco Use Status: Never used Tobacco Advance Directives: No Advance Directives Information Provided: No Current occupational status: disabled Current occupation: Right Handed Physical Exam ED Vital Signs: Vital Signs - 24 hr 09/24/22 13:45 Temperature 98 F Pulse Rate 90 Respiratory Rate 18 Blood Pressure 108/70 Pulse Oximetry 97 Oxygen Delivery Method Room Air BMI result Body Mass Index 33.2 Const General: cooperative, no acute distress, alert and awake Nutritional Appearance: well nourished Orientation/consciousness: patient oriented x3 Limitations: no limitations HENMT Head: Yes normal to inspection and Yes atraumatic Ears: hearing grossly normal bilaterally and external ears normal General nose exam: Normal external nose present, no nasal discharge noted and no epistaxis Face and sinus: Yes normal facial exam, No abrasion and No laceration Mouth: Normal oral and palatal mucosa present, no drooling and no muffled voice Eyes General: appearance normal, both eyes and all related structures Periorbital: periorbital findings normal Eyelids: Yes eyelids normal Conjunctivae: conjunctivae normal Pupils: Equal, round and reactive pupils present EOM: EOMs intact bilaterally Neck Neck: Yes normal visual inspection, Yes full ROM and Yes no lymphadenopathy Chest Chest palpation & inspection: normal inspection of the chest Resp Effort & Inspection: normal respiratory effort and able to speak in complete sentences Auscultation: clear to auscultation bilaterally Cardio Rate: regular rate Rhythm: regular rhythm GI Inspection: Yes normal to inspection Neuro General: patient oriented x3 and moves all extremities Cranial nerves: Yes Equal, round and reactive pupils present Cognition (Neuro): normal cognition Motor exam (neuro): 5/5 motor strength present throughout Sensory Exam: Normal double simultaneous stimulation for sensation Coordination: [id number] test normal Extrem General: Yes normal to inspection, Yes full ROM and Yes capillary refill normal Psych Appearance: grossly normal Mental Status: mental status grossly normal Affect: normal affect Attitude: cooperative Thought process: Normal thought process present Thought content: Normal thought content present Insight: Good insight present (Psych) Medical Decision Making MDM Narrative Medical decision making narrative: Patient is a 52 year old assigned female at with a history of asthma presenting to the emergency department today with a cough. Patient's physical exam was unremarkable. Patient's rapid RSV test was positive. Patient's chest x- ray showed no acute process. I explained my physical exam findings as well as all test results to the patient. I answered all questions asked by the patient. I stressed the importance of the patient taking her medication as prescribed. I stressed the importance of the patient following up with her primary care provider. I stressed the importance of the patient returning to the emergency department immediately if her symptoms were to worsen or if she were to develop any dizziness, shortness of breath, difficulty breathing, chest pain, blurry vision, loss of vision, nausea, vomiting, abdominal pain, fever, chills, back pain, or any other complaints. Patient verbalized agreement and understanding with this treatment plan and discharge. Medical Records Medical records reviewed: Yes I reviewed the patient's medical records. Lab Data Lab results reviewed: Yes I reviewed the patient's lab results. Labs: Lab Results 09/24/22 Range/Units 13:52 Influenza Type A (PCR) NEGATIVE (Negative) Influenza Type B (PCR) NEGATIVE (Negative) RSV RNA Qual (PCR) POSITIVE A (Negative) SARS-CoV-2 RNA (RT-PCR) NEGATIVE (Negative) Imaging Data Chest x-ray: Attestation: I personally reviewed and interpreted this imaging study as follows: My impression: No acute process. Radiologist's impression: EXAMINATION: XR CHEST CLINICAL INFORMATION: Shortness of breath COMPARISON: 06/01/2022 TECHNIQUE: 2 views of the chest were obtained. FINDINGS: There is asymmetric density from prominent osteophytosis at the left first costosternal junction. Low lung volumes. No focal consolidation or mass. Normal heart size. No pleural effusion or pneumothorax. XR/XR chest 2V IMPRESSION: No acute pulmonary disease. Dictated By: Mauri Lovell MD Signed By: Electronically signed by Mauri Lovell MD 09/24/22 8025 Discharge Plan Discharge Clinical Impression: Respiratory syncytial virus (RSV) Patient Disposition: Home, Self-Care Instructions: Respiratory Syncytial Virus (ED) Additional Instructions: Follow up with your primary care provider. Return to the emergency department immediately if your symptoms worsen or if you develop any dizziness, shortness of breath, difficulty breathing, chest pain, blurry vision, loss of vision, nausea, vomiting, abdominal pain, fever, chills, back pain, or any other complaints. Prescriptions: New prednisone 20 mg tablet 20 mg PO DAILY 12 Days Qty: 26 0RF Rx Instructions: Take 3 tablets for 5 days THEN; Take 2 tablets for 4 days THEN; Take 1 tablet for 3 days No Action (DME) Knee Support Brace Misc See Rx Instructions .ROUTE .MEDSUPPLY Qty: 1 0RF Rx Instructions: SWETA-PULL LITE, RT, L (DME) Knee Support Brace Misc See Rx Instructions .ROUTE .MEDSUPPLY Qty: 1 0RF Rx Instructions: SWETA-PULL LITE, LT, L Breo Ellipta 200-25 mcg/dose blister with device 1 ea PO DAILY Qty: 60 6RF lactulose 10 gram/15 mL solution 10 g PO DAILY PRN (Reason: constipation) Qty: 237 0RF omeprazole 20 mg capsule,delayed release(DR/EC) 20 mg PO DAILY trazodone 50 mg tablet 25 mg PO DAILY buspirone 5 mg tablet 5 mg PO BID baclofen 10 mg tablet 10 mg PO DAILY lisinopril 5 mg tablet 5 mg PO DAILY atorvastatin 20 mg tablet 20 mg PO DAILY fluoxetine 60 mg tablet 30 mg PO DAILY gabapentin 100 mg capsule 100 mg PO DAILY acetaminophen [Tylenol 8 Hour] 650 mg tablet extended release 650 mg PO Q8H albuterol sulfate [Ventolin HFA] 90 mcg/actuation HFA aerosol inhaler 2 puff PO QID PRN (Reason: shortness of breath or wheezing) 30 Days Qty: 1 6RF azithromycin 250 mg tablet See Rx Instructions PO .COMPLEX 5 Days Qty: 6 0RF Rx Instructions: For 250 mg dose pack: take 500 mg today (day 1), then 250 mg for 4 days (days 2-5) PO Referrals: Brooklyn Jalloh MD [Primary Care Provider] - Print Language: Micronesian
[2022-09-24] MEDS: predniSONE 20 MG TABLET PO (18:11)
== END 2022-09-24 19:25 | disposition home or self-care (01) ==
PROVIDERS: Emergency Provider Student in an Organized Health Care Education/Training Program; PCP General Practice
DX: J06.9 Acute upper respiratory infection, unspecified (principal); B97.4 Respiratory syncytial virus as the cause of diseases classified elsewhere; R06.02 Shortness of breath; R05.9 Cough, unspecified; Z20.822 Contact with and (suspected) exposure to COVID-19; Z79.899 Other long term (current) drug therapy
CPT/HCPCS: 0241U; 71046; 99282; 99283

== ENCOUNTER → 2022-09-28 08:58 | Outpatient (BNVA) | payer OTHER, SELFPAY | PROVIDERS: PCP General Practice; Visit Provider Surgery | DX: R92.8 Other abnormal and inconclusive findings on diagnostic imaging of breast (principal) | CPT/HCPCS: 99212 ==

== ENCOUNTER → 2023-02-01 14:24 | Outpatient (BNVA) | payer OTHER, SELFPAY | PROVIDERS: PCP General Practice; Visit Provider Internal Medicine Pulmonary Disease | DX: J45.909 Unspecified asthma, uncomplicated (principal); G47.33 Obstructive sleep apnea (adult) (pediatric) | CPT/HCPCS: Q3014 ==

== ENCOUNTER 2023-02-08 13:43 | Outpatient (REF) | payer OTHER, SELFPAY ==
--- NOTE | ~2023-02-08 | XR_ITS ---
EXAMINATION: XR CHEST CLINICAL INFORMATION: Cough. COMPARISON: 09/24/2022 chest radiographs. TECHNIQUE: 2 views of the chest were obtained. FINDINGS: No significant abnormality is noted involving the heart, lungs, mediastinum, bony thorax or soft tissues. XR/XR chest 2V IMPRESSION: No acute cardiopulmonary process.
== END 2023-02-08 13:44 | disposition home or self-care (01) ==
LOC: HO.XRAY 13:43
PROVIDERS: PCP General Practice; Visit Provider Family Medicine
DX: R05.9 Cough, unspecified (principal)
CPT/HCPCS: 71046

== ENCOUNTER → 2023-02-13 13:24 | Outpatient (BNVA) | payer OTHER, SELFPAY | PROVIDERS: PCP General Practice; Visit Provider Nurse Practitioner Family | DX: M79.7 Fibromyalgia (principal); Z79.899 Other long term (current) drug therapy | CPT/HCPCS: 99212 ==

== ENCOUNTER 2023-03-10 11:16 | Emergency (ER) | payer OTHER, SELFPAY ==
--- NOTE | ~2023-03-10 | CT_ITS ---
EXAMINATION: CT ABDOMEN AND PELVIS WITHOUT CONTRAST CLINICAL INFORMATION: Left abdominal pain radiating to the chest, with hematuria COMPARISON: CT abdomen pelvis 02/07/2022 TECHNIQUE: Multidetector volumetric imaging was performed from the superior aspect of the liver through the pubic symphysis. Sagittal and coronal reformatted images were obtained on the technologist's workstation. This CT examination was performed using dose optimization techniques as appropriate, variously including the following: *Automated exposure control *Adjustment of mA and/or kV according to patient size (this includes techniques or standardized protocols for targeted exams where dose is matched to indication/reason for exam; i.e. extremities or head) *Use of iterative reconstruction technique DLP: 779 mGy-cm FINDINGS: LUNG BASES: Unremarkable. ABDOMINAL AND PELVIC WALL: Tiny fat-containing umbilical hernia. LIVER AND BILIARY TREE: Unremarkable. GALLBLADDER: Status post cholecystectomy. PANCREAS: Unremarkable. SPLEEN: Unremarkable. ADRENAL GLANDS: Unremarkable. KIDNEYS AND URETERS: No hydronephrosis or nephrolithiasis. GASTROINTESTINAL TRACT: Small hiatal hernia. Colonic diverticulosis without evidence of diverticulitis. Normal appendix. VASCULAR: Unremarkable. LYMPH NODES/PERITONEUM: No lymphadenopathy. FREE FLUID: None. BLADDER: Equivocal mild bladder wall thickening relative to degree of underdistention, recommend correlation with symptoms of cystitis. PELVIC VISCERA: Unremarkable. OSSEOUS STRUCTURES: Degenerative changes of the pubic symphysis. CT/CT abdomen pelvis wo IV con IMPRESSION: 1. Equivocal mild bladder wall thickening relative to degree of underdistention, recommend correlation with symptoms of cystitis. 2. No hydronephrosis or nephrolithiasis.
--- NOTE | ~2023-03-10 | XR_ITS ---
EXAMINATION: XR CHEST CLINICAL INFORMATION: Reason for Exam ABD PAIN RADIATING TO CHEST COMPARISON: Chest radiograph 02/08/2023 TECHNIQUE: 2 views of the chest FINDINGS: Clear lungs. No pneumothorax or pleural effusion. Unchanged cardiomediastinal silhouette. XR/XR chest 2V IMPRESSION: * Clear lungs.
[2023-03-10 11:25] VITALS: BP 150/94; PULSE 83; RESP 18; TEMP 36.2; O2SAT 98; BMI 34.6
--- NOTE | 2023-03-10 11:29 | ECG_ITS ---
Test Reason : abd pain Blood Pressure : / mmHG Vent. Rate : 078 BPM Atrial Rate : 078 BPM P-R Int : 170 ms QRS Dur : 080 ms QT Int : 368 ms P-R-T Axes : 048 007 012 degrees QTc Int : 419 ms Normal sinus rhythm Minimal voltage criteria for LVH, may be normal variant ( R in aVL ) Borderline ECG When compared with ECG of 07-FEB-2022 11:29, Vent. rate has increased BY 28 BPM Referred By: Tali Li Electronically Signed By:MARILYN BARNES
--- NOTE | 2023-03-10 11:32 | ED.ABDPAIN ---
HPI - Abdominal Pain General Chief Complaint: Abdominal Pain <TONIE Ley Last Filed: 03/10/23 11:34> Stated Complaint: abd pain <TONIE Ley Last Filed: 03/10/23 11:34> Time Seen by Provider: 03/10/23 14:49 <TONIE Ley - Last Filed: 03/10/23 11:34> Source: patient <TONIE Zarate - Last Filed: 03/10/23 18:34> Mode of arrival: ambulatory <TONIE Zarate - Last Filed: 03/10/23 18:34> History of Present Illness HPI narrative: 53-year-old female with a past medical history of HTN, fibromyalgia, presenting to the ED complaining of left-sided abdominal pain radiating to lower abdomen and low back x few days. Reports symptoms started after intercourse. Also reports associated hematuria when wiping and dysuria. Denies fever, chills, nausea/vomiting, diarrhea, vaginal bleeding/discharge, CP/SOB. <TONIE Zarate Last Filed: 03/10/23 18:34> MD elicited complaint: abdominal pain and flank pain <TONIE Zarate Last Filed: 03/10/23 18:34> Related Data Home Medications: Home Medications Medication Instructions Recorded Confirmed atorvastatin 20 mg tablet 20 mg PO DAILY 09/14/20 09/28/22 baclofen 10 mg tablet 10 mg PO DAILY 09/14/20 09/28/22 buspirone 5 mg tablet 5 mg PO BID 09/14/20 09/28/22 lisinopril 5 mg tablet 5 mg PO DAILY 09/14/20 09/28/22 omeprazole 20 mg capsule,delayed 20 mg PO DAILY 09/14/20 09/28/22 release trazodone 50 mg tablet 25 mg PO DAILY 09/14/20 09/28/22 acetaminophen 650 mg 650 mg PO Q8H 02/13/22 09/28/22 tablet,extended release (Tylenol 8 Hour) gabapentin 100 mg capsule 100 mg PO DAILY 02/13/22 09/28/22 estradiol 0.01% (0.1 mg/gram) g vaginal 02/01/23 vaginal cream fluconazole 150 mg tablet 150 mg PO ONCE 02/01/23 fluticasone propionate 50 2 spray intranasal QAM 02/01/23 mcg/actuation nasal spray,suspension simethicone 80 mg chewable tablet 80 mg PO Q8H PRN gas 02/01/23 (Gas Relief (simethicone)) fluoxetine 20 mg capsule 40 mg PO QAM 02/13/23 prednisone 10 mg tablet 0 mg PO 02/13/23 02/13/23 Previous Rx's Medication Instructions Recorded leg brace (Knee Support Brace) #1 ea 09/28/20 lactulose 10 gram/15 mL oral 10 g (15 mL) PO DAILY PRN 02/07/22 solution constipation #237 mL albuterol sulfate 90 mcg/actuation 2 puff inhalation QID PRN for 12/31/22 aerosol inhaler (Ventolin HFA) wheezing #18 grams azithromycin 250 mg tablet See Rx Instructions PO .COMPLEX #6 02/01/23 tabs Breo Ellipta 200 mcg-25 mcg/dose 1 ea inhalation DAILY #60 ea 02/18/23 powder for inhalation (fluticasone furoate-vilanterol) ciprofloxacin HCl 500 mg tablet 500 mg PO BID 7 days #14 tabs 03/10/23 (Cipro) phenazopyridine 200 mg tablet 200 mg PO TID PRN pain 6 doses #6 03/10/23 (Pyridium) tabs <TONIE Ley - Last Filed: 03/10/23 11:34> Allergies/Adverse Reactions: Allergies Allergy/AdvReac Type Severity Reaction Status Date / Time shrimp [SHRIMP] Allergy Unknown UNKNOWN Verified 03/10/23 11:28 <TONIE Ley - Last Filed: 03/10/23 11:34> Review of Systems Review of Systems Constitutional: No Fever, No Chills, No Fatigue, No Malaise ENT/Mouth: No Hearing loss, No Ear Pain, No Nasal Congestion, No sore throat, No Rhinorrhea, No Swallowing Difficulty Eyes: No Eye Pain, No Swelling, No Redness Cardiovascular: No Chest Pain, No SOB, No Palpitations Respiratory: No Cough, No Sputum, No Dyspnea Gastrointestinal: No Nausea, No Vomiting, No Diarrhea, No Constipation, + Abdominal pain Genitourinary: No irregular bleeding, + Dysuria, No Urinary Frequency, + Hematuria, No Urinary Incontinence/retention, No Urgency, + Flank Pain, No Urinary Flow Changes Musculoskeletal: No joint pain, No Myalgias, No Joint Swelling Skin: No Skin Lesions, No rash Neuro: No Weakness, No Numbness, No Headache <TONIE Zarate - Last Filed: 03/10/23 18:34> Yes all other systems are reviewed and are negative <TONIE Zarate - Last Filed: 03/10/23 18:34> Constitutional: Reports as per HPI <TONIE Zarate - Last Filed: 03/10/23 18:34> [facility] Past Medical History Attestation statement: The following information was validated with the patient. <TONIE Zarate - Last Filed: 03/10/23 18:34> Medical History: Medical History Bilateral knee pain Chronic pain Essential hypertension Family history of coronary artery disease Fibromyalgia Other and unspecified hyperlipidemia <TONIE Ley - Last Filed: 03/10/23 11:34> Surgical History: Surgical History H/O section H/O lateral meniscus repair of left knee History of cholecystectomy History of hysterectomy <TONIE Ley - Last Filed: 03/10/23 11:34> Family History Family History: Family History Father History of open heart surgery Brother Hypertension Mother Colon cancer <TONIE Ley - Last Filed: 03/10/23 11:34> Social History Social History: Social History Household Members Other:: son Housing: Apartment Alcohol intake: never Patient Tobacco Use Status: Never used Tobacco Advance Directives: No Advance Directives Information Provided: Yes Current occupational status: disabled Current occupation: Right Handed <TONIE Ley - Last Filed: 03/10/23 11:34> Physical Exam ED Vital Signs: Vital Signs - 24 hr 03/10/23 11:25 Temperature 97.2 F Pulse Rate 83 Respiratory Rate 18 Blood Pressure 150/94 H Pulse Oximetry 98 Oxygen Delivery Method Room Air BMI result Body Mass Index 34.6 <TONIE Ley - Last Filed: 03/10/23 11:34> Vital Signs - 24 hr 03/10/23 11:25 Temperature 97.2 F Pulse Rate 83 Respiratory Rate 18 Blood Pressure 150/94 H Pulse Oximetry 98 Oxygen Delivery Method Room Air BMI result Body Mass Index 34.6 <TONIE Zarate - Last Filed: 03/10/23 18:34> Const General: cooperative, healthy appearing and no acute distress <TONIE Zarate Last Filed: 03/10/23 18:34> Orientation/consciousness: patient oriented x3 <TONIE Zarate Last Filed: 03/10/23 18:34> Limitations: no limitations <TONIE Zarate - Last Filed: 03/10/23 18:34> HENMT Head: Yes normal to inspection and Yes atraumatic <TONIE Zarate Last Filed: 03/10/23 18:34> Ears: hearing grossly normal bilaterally <TONIE Zarate - Last Filed: 03/10/23 18:34> General nose exam: Normal external nose present <TONIE Zarate Last Filed: 03/10/23 18:34> Face and sinus: Yes normal facial exam <TONIE Zarate - Last Filed: 03/10/23 18:34> Eyes General: appearance normal, both eyes and all related structures <TONIE Zarate Last Filed: 03/10/23 18:34> EOM: EOMs intact bilaterally <TONIE Zarate Last Filed: 03/10/23 18:34> Neck Neck: Yes normal visual inspection and Yes no meningeal signs <TONIE Zarate Last Filed: 03/10/23 18:34> Resp Effort & Inspection: normal respiratory effort and no respiratory distress <TONIE Zarate Last Filed: 03/10/23 18:34> Auscultation: clear to auscultation bilaterally <TONIE Zarate Last Filed: 03/10/23 18:34> Cardio Rate: regular rate <TONIE Zarate Last Filed: 03/10/23 18:34> Heart sounds: S1 normal heart sound present and S2 normal heart sound present <TONIE Zarate - Last Filed: 03/10/23 18:34> GI Inspection: Yes normal to inspection <TONIE Zarate - Last Filed: 03/10/23 18:34> Palpation (GI): Soft to palpation, nontender, no guarding and not rigid <TONIE Zarate - Last Filed: 03/10/23 18:34> General: Yes CVA tenderness on the left <TONIE Zarate - Last Filed: 03/10/23 18:34> Back/Spine/Pelvis Back: CVA tenderness <TONIE Zarate - Last Filed: 03/10/23 18:34> Skin Rashes: no rashes <TONIE Zarate - Last Filed: 03/10/23 18:34> Wounds: no wounds <TONIE Zarate - Last Filed: 03/10/23 18:34> Neuro General: patient oriented x3, tone normal and no meningeal signs <TONIE Zarate - Last Filed: 03/10/23 18:34> Gait exam (Neuro): Normal gait present <TONIE Zarate - Last Filed: 03/10/23 18:34> Extrem General: Yes normal to inspection <TONIE Zarate - Last Filed: 03/10/23 18:34> Course Course Course Narrative: DUANE11:30AM - 53yoF who is Telugu-speaking with a PMHx of asthma, fibromyalgia, hypertension and depression who is presenting to the ER with complaints left-sided abdominal pain in the lower aspect that radiated to her left chest/back area for the past 2 days worse today. Reports a 9/10 pain. Reports she has never had this pain in the past. She has associated hematuria. Had 2 normal bowel movements today. Her son was recently diagnosed with COVID and she has a dry cough. She denies any nasal congestion, fevers, shortness of breath, dyspnea on exertion, dysuria, abnormal vaginal discharge, diarrhea constipation or any other symptoms complaints or concerns at this time. Plan: Will obtain labs, UA, CT scan abdomen pelvis without IV contrast to evaluate for possible kidney stones patient will be sent back to the waiting room to be evaluated in the ED. <TONIE Ley - Last Filed: 03/10/23 11:34> RME-11:30AM - 53yoF who is Telugu-speaking with a PMHx of asthma, fibromyalgia, hypertension and depression who is presenting to the ER with complaints left-sided abdominal pain in the lower aspect that radiated to her left chest/back area for the past 2 days worse today. Reports a 9/10 pain. Reports she has never had this pain in the past. She has associated hematuria. Had 2 normal bowel movements today. Her son was recently diagnosed with COVID and she has a dry cough. She denies any nasal congestion, fevers, shortness of breath, dyspnea on exertion, dysuria, abnormal vaginal discharge, diarrhea constipation or any other symptoms complaints or concerns at this time. Plan: Will obtain labs, UA, CT scan abdomen pelvis without IV contrast to evaluate for possible kidney stones patient will be sent back to the waiting room to be evaluated in the ED. 1519--mild leukocytosis of 12. Labs otherwise reassuring. Troponin negative. -UA infected > will treat patient for pyelo based on symptoms -CXR unremarkable CT abdomen pelvis wo IV con IMPRESSION: 1.? Equivocal mild bladder wall thickening relative to degree of underdistention, recommend correlation with symptoms of cystitis. 2.? No hydronephrosis or nephrolithiasis. Results discussed with patient including worrisome signs and symptoms and strict return precautions, and when to return to the emergency department. They verbalized understanding and feel safe for discharge at this time. <TONIE Zarate - Last Filed: 03/10/23 18:34> Medical Decision Making Medical Decision Making MDM Narrative: 53-year-old female with a past medical history of HTN, fibromyalgia, presenting to the ED complaining of left-sided abdominal pain radiating to lower abdomen and low back x few days. On exam vital signs stable, NAD, nontoxic appearing, abdomen soft/nontender, left CVA tenderness noted, no rebound or guarding. Concern for UTI vs pyelo vs renal stone vs ? Diverticulitis/appendicitis. Lower suspicion for ovarian torsion/STI or ACS Plan: Labs, UA, CT ordered in triage Please refer to course for remaining clinical decision making, interpretation of labs/imaging results, and discussions with consultants and/or family members. <TONIE Zarate - Last Filed: 03/10/23 18:34> Differential Diagnosis Differential Diagnoses: The differential diagnosis associated with the presentation includes <TONIE Zarate - Last Filed: 03/10/23 18:34> As above <TONIE Zarate - Last Filed: 03/10/23 18:34> Admission/Observation Consideration of admission/observation: Escalation of care including admission/observation considered <TONIE Zarate - Last Filed: 03/10/23 18:34> Lab Data MDM Lab Attestation statement: I reviewed the patient's lab results. <TONIE Zarate - Last Filed: 03/10/23 18:34> Result Diagrams: 03/10/23 11:59 03/10/23 11:59 <TONIE Ley - Last Filed: 03/10/23 11:34> Labs: Lab Results 03/10/23 03/10/23 03/10/23 Range/Units 11:59 11:59 11:59 WBC 12.0 H (4.8-10.8) X10*3/uL RBC 4.51 (4.20-5.50) X10*6/uL Hgb 12.2 (12.0-16.0) g/dl Hct 38.3 (37.0-47.0) % MCV 84.9 (80.0-98.0) fL MCH 27.1 (27.0-33.0) pg MCHC 31.9 (31.0-35.0) g/dl RDW 14.1 (11.0-16.0) % Plt Count 292 (160-400) X10*3/uL MPV 10.3 (9.4-12.3) fL Immature Gran % (Auto) 0.3 (0.0-0.4) % Neut % (Auto) 66.9 (45-73) % Lymph % (Auto) 23.6 (20-40) % Will % (Auto) 7.4 (2-11) % Eos % (Auto) 1.5 (0-4) % Baso % (Auto) 0.3 (0-2) % Lymph # (Auto) 2.8 (1.2-4.9) X10*3/uL Will # (Auto) 0.9 (0.1-1.2) X10*3/uL Eos # (Auto) 0.2 (0.0-0.4) X10*3/uL Baso # (Auto) 0.0 (0.0-0.2) X10*3/uL Abs Immat Gran (auto) 0.04 H (0.00-0.03) X10*3/uL Absolute Neuts (auto) 8.0 (2.0-8.3) x10*3/uL Absolute Nucleated RBC 0.000 (0.0-0.012) X10*3/uL Nucleated RBC % (auto) 0.0 (0.0-0.2) /100WBC PT 11.7 (10.0-13.1) SEC INR 1.0 (0.9-1.1) Sodium 140 (135-145) mmol/L Potassium 3.9 (3.3-5.1) mmol/L Chloride 108 (96-108) mmol/L Carbon Dioxide 25 (22-29) mmol/L Anion Gap 11 L (12-20) BUN 15 (9-16) mg/dL Creatinine 0.79 (0.5-1.4) mg/dL Estim Creat Clear Calc 91.4 Estimated GFR > 60 Random Glucose 102 (60-115) mg/dL Calcium 9.0 D (8.4-10.2) mg/dL Magnesium 1.9 (1.6-2.6) mg/dL Total Bilirubin 0.5 (0.0-1.0) mg/dL AST 17 (5-31) U/L ALT 23 (0-31) U/L Alkaline Phosphatase 133 H (39-117) U/L Troponin I High Sens (<3.5-17.0) ng/L Total Protein 6.6 (6.5-8.0) g/dL Albumin 4.1 (3.5-5.0) g/dL Lipase 31 (8-78) U/L Urine Color Urine Appearance Urine pH (5.0-9.0) Ur Specific Gilbert (1.005-1.025) Urine Protein (Neg-Trace) mg/dL Urine Glucose (UA) (Negative) mg/dL Urine Ketones (Negative) mg/dL Urine Blood (Negative) Urine Nitrite (Negative) Ur Leukocyte Esterase (Negative) Urine RBC (0-2) /HPF Urine WBC (0-5) /HPF Ur Squamous Epith Cells (0-2) /HPF Urine Bacteria (None Seen) Hyaline Casts (0-2) /LPF Influenza Type A (PCR) (Negative) Influenza Type B (PCR) (Negative) RSV RNA Qual (PCR) (Negative) SARS-CoV-2 RNA (RT-PCR) (Negative) 03/10/23 03/10/23 03/10/23 Range/Units 11:59 11:59 11:59 WBC (4.8-10.8) X10*3/uL RBC (4.20-5.50) X10*6/uL Hgb (12.0-16.0) g/dl Hct (37.0-47.0) % MCV (80.0-98.0) fL MCH (27.0-33.0) pg MCHC (31.0-35.0) g/dl RDW (11.0-16.0) % Plt Count (160-400) X10*3/uL MPV (9.4-12.3) fL Immature Gran % (Auto) (0.0-0.4) % Neut % (Auto) (45-73) % Lymph % (Auto) (20-40) % Will % (Auto) (2-11) % Eos % (Auto) (0-4) % Baso % (Auto) (0-2) % Lymph # (Auto) (1.2-4.9) X10*3/uL Will # (Auto) (0.1-1.2) X10*3/uL Eos # (Auto) (0.0-0.4) X10*3/uL Baso # (Auto) (0.0-0.2) X10*3/uL Abs Immat Gran (auto) (0.00-0.03) X10*3/uL Absolute Neuts (auto) (2.0-8.3) x10*3/uL Absolute Nucleated RBC (0.0-0.012) X10*3/uL Nucleated RBC % (auto) (0.0-0.2) /100WBC PT (10.0-13.1) SEC INR (0.9-1.1) Sodium (135-145) mmol/L Potassium (3.3-5.1) mmol/L Chloride (96-108) mmol/L Carbon Dioxide (22-29) mmol/L Anion Gap (12-20) BUN (9-16) mg/dL Creatinine (0.5-1.4) mg/dL Estim Creat Clear Calc Estimated GFR Random Glucose (60-115) mg/dL Calcium (8.4-10.2) mg/dL Magnesium (1.6-2.6) mg/dL Total Bilirubin (0.0-1.0) mg/dL AST (5-31) U/L ALT (0-31) U/L Alkaline Phosphatase (39-117) U/L Troponin I High Sens < 2.7 (<3.5-17.0) ng/L Total Protein (6.5-8.0) g/dL Albumin (3.5-5.0) g/dL Lipase (8-78) U/L Urine Color Yellow Urine Appearance Clear Urine pH 8.0 (5.0-9.0) Ur Specific Gilbert <= 1.005 (1.005-1.025) Urine Protein Negative (Neg-Trace) mg/dL Urine Glucose (UA) Negative (Negative) mg/dL Urine Ketones Negative (Negative) mg/dL Urine Blood Large (3+) H (Negative) Urine Nitrite Negative (Negative) Ur Leukocyte Esterase Moderate (2+) H (Negative) Urine RBC 3-5 H (0-2) /HPF Urine WBC 11-20 H (0-5) /HPF Ur Squamous Epith Cells 0-2 (0-2) /HPF Urine Bacteria None Seen (None Seen) Hyaline Casts 0-2 (0-2) /LPF Influenza Type A (PCR) NEGATIVE (Negative) Influenza Type B (PCR) NEGATIVE (Negative) RSV RNA Qual (PCR) NEGATIVE (Negative) SARS-CoV-2 RNA (RT-PCR) NEGATIVE (Negative) <TONIE Ley - Last Filed: 03/10/23 11:34> Lab Results 03/10/23 03/10/23 03/10/23 Range/Units 11:59 11:59 11:59 WBC 12.0 H (4.8-10.8) X10*3/uL RBC 4.51 (4.20-5.50) X10*6/uL Hgb 12.2 (12.0-16.0) g/dl Hct 38.3 (37.0-47.0) % MCV 84.9 (80.0-98.0) fL MCH 27.1 (27.0-33.0) pg MCHC 31.9 (31.0-35.0) g/dl RDW 14.1 (11.0-16.0) % Plt Count 292 (160-400) X10*3/uL MPV 10.3 (9.4-12.3) fL Immature Gran % (Auto) 0.3 (0.0-0.4) % Neut % (Auto) 66.9 (45-73) % Lymph % (Auto) 23.6 (20-40) % Will % (Auto) 7.4 (2-11) % Eos % (Auto) 1.5 (0-4) % Baso % (Auto) 0.3 (0-2) % Lymph # (Auto) 2.8 (1.2-4.9) X10*3/uL Will # (Auto) 0.9 (0.1-1.2) X10*3/uL Eos # (Auto) 0.2 (0.0-0.4) X10*3/uL Baso # (Auto) 0.0 (0.0-0.2) X10*3/uL Abs Immat Gran (auto) 0.04 H (0.00-0.03) X10*3/uL Absolute Neuts (auto) 8.0 (2.0-8.3) x10*3/uL Absolute Nucleated RBC 0.000 (0.0-0.012) X10*3/uL Nucleated RBC % (auto) 0.0 (0.0-0.2) /100WBC PT 11.7 (10.0-13.1) SEC INR 1.0 (0.9-1.1) Sodium 140 (135-145) mmol/L Potassium 3.9 (3.3-5.1) mmol/L Chloride 108 (96-108) mmol/L Carbon Dioxide 25 (22-29) mmol/L Anion Gap 11 L (12-20) BUN 15 (9-16) mg/dL Creatinine 0.79 (0.5-1.4) mg/dL Estim Creat Clear Calc 91.4 Estimated GFR > 60 Random Glucose 102 (60-115) mg/dL Calcium 9.0 D (8.4-10.2) mg/dL Magnesium 1.9 (1.6-2.6) mg/dL Total Bilirubin 0.5 (0.0-1.0) mg/dL AST 17 (5-31) U/L ALT 23 (0-31) U/L Alkaline Phosphatase 133 H (39-117) U/L Troponin I High Sens (<3.5-17.0) ng/L Total Protein 6.6 (6.5-8.0) g/dL Albumin 4.1 (3.5-5.0) g/dL Lipase 31 (8-78) U/L Urine Color Urine Appearance Urine pH (5.0-9.0) Ur Specific Gilbert (1.005-1.025) Urine Protein (Neg-Trace) mg/dL Urine Glucose (UA) (Negative) mg/dL Urine Ketones (Negative) mg/dL Urine Blood (Negative) Urine Nitrite (Negative) Ur Leukocyte Esterase (Negative) Urine RBC (0-2) /HPF Urine WBC (0-5) /HPF Ur Squamous Epith Cells (0-2) /HPF Urine Bacteria (None Seen) Hyaline Casts (0-2) /LPF Influenza Type A (PCR) (Negative) Influenza Type B (PCR) (Negative) RSV RNA Qual (PCR) (Negative) SARS-CoV-2 RNA (RT-PCR) (Negative) 03/10/23 03/10/23 03/10/23 Range/Units 11:59 11:59 11:59 WBC (4.8-10.8) X10*3/uL RBC (4.20-5.50) X10*6/uL Hgb (12.0-16.0) g/dl Hct (37.0-47.0) % MCV (80.0-98.0) fL MCH (27.0-33.0) pg MCHC (31.0-35.0) g/dl RDW (11.0-16.0) % Plt Count (160-400) X10*3/uL MPV (9.4-12.3) fL Immature Gran % (Auto) (0.0-0.4) % Neut % (Auto) (45-73) % Lymph % (Auto) (20-40) % Will % (Auto) (2-11) % Eos % (Auto) (0-4) % Baso % (Auto) (0-2) % Lymph # (Auto) (1.2-4.9) X10*3/uL Will # (Auto) (0.1-1.2) X10*3/uL Eos # (Auto) (0.0-0.4) X10*3/uL Baso # (Auto) (0.0-0.2) X10*3/uL Abs Immat Gran (auto) (0.00-0.03) X10*3/uL Absolute Neuts (auto) (2.0-8.3) x10*3/uL Absolute Nucleated RBC (0.0-0.012) X10*3/uL Nucleated RBC % (auto) (0.0-0.2) /100WBC PT (10.0-13.1) SEC INR (0.9-1.1) Sodium (135-145) mmol/L Potassium (3.3-5.1) mmol/L Chloride (96-108) mmol/L Carbon Dioxide (22-29) mmol/L Anion Gap (12-20) BUN (9-16) mg/dL Creatinine (0.5-1.4) mg/dL Estim Creat Clear Calc Estimated GFR Random Glucose (60-115) mg/dL Calcium (8.4-10.2) mg/dL Magnesium (1.6-2.6) mg/dL Total Bilirubin (0.0-1.0) mg/dL AST (5-31) U/L ALT (0-31) U/L Alkaline Phosphatase (39-117) U/L Troponin I High Sens < 2.7 (<3.5-17.0) ng/L Total Protein (6.5-8.0) g/dL Albumin (3.5-5.0) g/dL Lipase (8-78) U/L Urine Color Yellow Urine Appearance Clear Urine pH 8.0 (5.0-9.0) Ur Specific Gilbert <= 1.005 (1.005-1.025) Urine Protein Negative (Neg-Trace) mg/dL Urine Glucose (UA) Negative (Negative) mg/dL Urine Ketones Negative (Negative) mg/dL Urine Blood Large (3+) H (Negative) Urine Nitrite Negative (Negative) Ur Leukocyte Esterase Moderate (2+) H (Negative) Urine RBC 3-5 H (0-2) /HPF Urine WBC 11-20 H (0-5) /HPF Ur Squamous Epith Cells 0-2 (0-2) /HPF Urine Bacteria None Seen (None Seen) Hyaline Casts 0-2 (0-2) /LPF Influenza Type A (PCR) NEGATIVE (Negative) Influenza Type B (PCR) NEGATIVE (Negative) RSV RNA Qual (PCR) NEGATIVE (Negative) SARS-CoV-2 RNA (RT-PCR) NEGATIVE (Negative) <TONIE Zarate - Last Filed: 03/10/23 18:34> Radiology Impression Discussion of test interpretation with radiology: I have reviewed the radiologist's reading. <TONIE Zarate - Last Filed: 03/10/23 18:34> External Record Review External record reviewed: Inpatient record, Office record, Outpatient record, Prior outpatient labs, Prior outpatient radiology, Primary care record and Outside ED record <TONIE Zarate - Last Filed: 03/10/23 18:34> Discharge Plan Discharge Clinical Impression: Pyelonephritis <TONIE Ley - Last Filed: 03/10/23 11:34> Patient Disposition: Home, Self-Care <TONIE Ley - Last Filed: 03/10/23 11:34> Instructions: Kidney Infection (ED) <TONIE Ley - Last Filed: 03/10/23 11:34> Additional Instructions: Your blood work was reassuring. You have a urine infection which is likely progressed your kidneys due to your pain Cipro as an antibiotic please take as prescribed. Pyridium will help with urinary discomfort Increase fluid intake If symptoms persist or worsening of constant unremitting pain/fever return to the ED Cain an?lisis de rianna fue tranquilizador. Tiene michael infecci?n de orina que probablemente progres? en jona ri?ones debido a cain dolor. Cipro hortencia antibi?yunior, t?ballard seg?n lo prescrito. Pyridium ayudar? con las molestias urinarias Aumentar la ingesta de l?quidos Si los s?ntomas persisten o empeoran el dolor/fiebre tye e incesante, regrese al servicio de urgencias. <TONIE eLy - Last Filed: 03/10/23 11:34> Prescriptions: New ciprofloxacin HCl [Cipro] 500 mg tablet 500 mg PO BID 7 Days Qty: 14 0RF phenazopyridine [Pyridium] 200 mg tablet 200 mg PO TID PRN (Reason: pain) Qty: 6 0RF No Action (DME) Knee Support Brace Misc See Rx Instructions .ROUTE .MEDSUPPLY Qty: 1 0RF Rx Instructions: SWETA-PULL KASSIEELT, Carmelo albuterol sulfate [Ventolin HFA] 90 mcg/actuation HFA aerosol inhaler 2 puff inhalation QID PRN (Reason: for wheezing) Qty: 18 6RF Breo Ellipta 200-25 mcg/dose blister with device 1 ea inhalation DAILY Qty: 60 6RF lactulose 10 gram/15 mL solution 10 g PO DAILY PRN (Reason: constipation) Qty: 237 0RF omeprazole 20 mg capsule,delayed release(DR/EC) 20 mg PO DAILY trazodone 50 mg tablet 25 mg PO DAILY buspirone 5 mg tablet 5 mg PO BID baclofen 10 mg tablet 10 mg PO DAILY lisinopril 5 mg tablet 5 mg PO DAILY atorvastatin 20 mg tablet 20 mg PO DAILY gabapentin 100 mg capsule 100 mg PO DAILY acetaminophen [Tylenol 8 Hour] 650 mg tablet extended release 650 mg PO Q8H fluoxetine 20 mg capsule 40 mg PO QAM prednisone 10 mg tablet 0 mg PO simethicone [Gas Relief (simethicone)] 80 mg tablet,chewable 80 mg PO Q8H PRN (Reason: gas) fluticasone propionate 50 mcg/actuation spray,suspension 2 spray intranasal QAM fluconazole 150 mg tablet 150 mg PO ONCE estradiol 0.01 % (0.1 mg/gram) cream vaginal azithromycin 250 mg tablet See Rx Instructions PO .COMPLEX Qty: 6 0RF Rx Instructions: For 250 mg dose pack: take 500 mg today (day 1), then 250 mg for 4 days (days 2-5) PO <TONIE Ley - Last Filed: 03/10/23 11:34> Referrals: Brooklyn Jalloh MD [Primary Care Provider] - 1 week <TONIE Ley - Last Filed: 03/10/23 11:34> Interventions: ED Discharge Assessment Last Done: 03/10/23 15:28 <TONIE Ley - Last Filed: 03/10/23 11:34> Discharge Date/Time: 03/10/23 15:28 <TONIE Ley - Last Filed: 03/10/23 11:34>
[2023-03-10 12:06] LABS: MANUAL DIFF FLAG NO
[2023-03-10 12:08] LABS: Basophils Percent Auto 0.3 % (0-2); Eosinophils Absolute Auto 0.2 X10*3/uL (0.0-0.4); Eosinophils Percent Auto 1.5 % (0-4); Hematocrit 38.3 % (37.0-47.0); Hemoglobin 12.2 g/dl (12.0-16.0); Imm Gran Abs Auto 0.04 X10*3/uL (0.00-0.03); Imm Gran Pct Auto 0.3 % (0.0-0.4); Lymphocytes Absolute Auto 2.8 X10*3/uL (1.2-4.9); Lymphocytes Percent Auto 23.6 % (20-40); Mean Corpuscular HGB Conc 31.9 g/dl (31.0-35.0); Mean Corpuscular Hemoglobin 27.1 pg (27.0-33.0); Mean Corpuscular Volume 84.9 fL (80.0-98.0); Mean Platelet Volume 10.3 fL (9.4-12.3); Monocytes Absolute Auto 0.9 X10*3/uL (0.1-1.2); Monocytes Percent Auto 7.4 % (2-11); Neutrophils Percent Auto 66.9 % (45-73); Platelet Count 292 X10*3/uL (160-400); Red Blood Count 4.51 X10*6/uL (4.20-5.50); Red Cell Distribution Width 14.1 % (11.0-16.0)
[2023-03-10 12:13] LABS: Appearance Urine Clear; Color Urine Yellow; Glucose Urine UA Negative (Negative); Leukocyte Esterase Urine Moderate (2+) (Negative); Nitrite Urine Negative (Negative); Prothrombin Time 11.7 SEC (10.0-13.1); Specific Gravity - Urine <= 1.005 (1.005-1.025); UMIC TRIGGER UACC YES; Urine Blood Large (3+) (Negative); Urine Ketones Negative (Negative); Urine Protein Negative (Neg-Trace)
[2023-03-10 12:24] LABS: Bacteria Urine None Seen (None Seen); Hyaline Casts Urine 0-2 /LPF (0-2); Squamous Epithelial Cell Urine 0-2 /HPF (0-2); UACC Culture Trigger YES
[2023-03-10 12:40] LABS: Alanine Aminotransferase 23 U/L (0-31); Albumin Level 4.1 g/dL (3.5-5.0); Alkaline Phosphatase 133 U/L (39-117); Anion Gap 11 (12-20); Aspartate Amino Transferase 17 U/L (5-31); Bilirubin Total 0.5 mg/dL (0.0-1.0); Blood Urea Nitrogen 15 mg/dL (9-16); Carbon Dioxide 25 mmol/L (22-29); Chloride 108 mmol/L (96-108); Creatinine Clr Calc Pharmacy 91.4; Estimated Glomerular Filt Rate > 60; Glucose Random 102 mg/dL (60-115); Lipase 31 U/L (8-78); Potassium 3.9 mmol/L (3.3-5.1); Sodium 140 mmol/L (135-145); Total Protein 6.6 g/dL (6.5-8.0)
[2023-03-10 12:44] LABS: Troponin-I High Sensitivity < 2.7 ng/L (<3.5-17.0)
[2023-03-10 12:46] LABS: Influenza A PCR NEGATIVE (Negative); Influenza B PCR NEGATIVE (Negative); Resp Syncy Virus RNA Qual PCR NEGATIVE (Negative); SARS COV2 PCR INHOUSE NEGATIVE (Negative)
[2023-03-10 13:01] LABS: Magnesium 1.9 mg/dL (1.6-2.6)
--- OUTSIDE RECORDS SUMMARY | 2023-03-10 14:50 | XMS_ITS | Continuity of Care Document ---
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 Start Date: 10/26/20 Status: Ordered Breo Ellipta Inhalation, Daily, 0 Refills, Maintenance, 06/20/22 15:35:00 EDT, Partial fill upon patient requestif the prescription is for a schedule II opioid drug. Start Date: 06/20/22 Status: Ordered BuSpar 10 mg oral tablet 10 mg, By Mouth, 2 times a day, Refills 0, Maintenance, 07/12/20 15:27:00 EDT Start Date: 07/12/20 Status: Ordered Claritin-D By Mouth, Every 12 hours, 0 Refills, Maintenance, 07/12/20 15:28:00 EDT Start Date: 07/12/20 Status: Ordered DOK 100 mg oral tablet See Instructions, NEEDED FOR CONSTIPATION, 0 Refills, Maintenance, 10/26/20 10:36:00 EST, Partial fill upon patient request if the prescription is for a schedule II opioid drug. Start Date: 10/26/20 Status: Ordered Excedrin Migraine By Mouth, Every 6 hours, 0 Refills, Maintenance, 07/12/20 15:28:00 EDT Start Date: 07/12/20 Status: Ordered Gabapentin = 100 mg, By Mouth, 0 Refills, Maintenance, 07/12/20 15:27:00 EDT Start Date: 07/12/20 Status: Ordered Gas-X 80 mg oral tablet, chewable 1 tablet = 80 mg, 3 times a day after meals and bedtime, 0 Refills, Maintenance, 02/09/21 10:22:00 EDT, Partial fill upon patient request if the prescription is for a schedule II opioid drug. Start Date: 02/09/21 Status: Ordered Lisinopril By Mouth, Daily, 0 Refills, Maintenance, 07/12/20 15:26:00 EDT Start Date: 07/12/20 Status: Ordered MiraLax = 17 Gm, By Mouth, Daily, 0 Refills, Maintenance, 07/12/20 15:29:00 EDT Start Date: 07/12/20 Status: Ordered MiraLax oral powder for reconstitution = 17 Gm, By Mouth, Daily, dissolve in water before taking, # 255 Gm, 3 Refills, Acute 06/20/23 16:36:00 EDT, 06/20/22 16:35:00 EDT, REC Powder, [facility], Partial fill upon patient request if the prescription is for a schedule II... Start Date: 06/20/22 Stop Date: 06/20/23 Status: Ordered MiraLax oral powder for reconstitution = 17 Gm, By Mouth, Daily, 0 Refills, Maintenance, 02/09/21 10:22:00 EDT, Partial fill upon patient request if the prescription is for a schedule II opioid drug. Start Date: 02/09/21 Status: Ordered NuLYTELY Lemon [place] oral powder for reconstitution See Instructions, As per Colonoscopy Instructions, # 1 each, 0 Refills, Maintenance, 06/20/22 16:14:00 EDT, [facility], Partial fill upon patient request if the prescription is for a schedule II opioid drug., 167.64, cm, 06/20/22 1... Start Date: 06/20/22 Status: Ordered Nutritional Supplements See Instructions, Maintenance, MIRACID GASUSE FOR GAS PAINS, 10/26/20 10:39:00 EST, Supply Start Date: 10/26/20 Status: Ordered PEG-3350 with Electrolytes (Eqv-NuLYTELY) oral powder for reconstitution See Instructions, Please follow instructions from GI; NOT the instructions in the package insert., # 1 kit, 0 Refills, Maintenance, 08/09/22 11:16:00 EDT, [facility], Okay to substitute with any gallon bowel prep., Please follow in... Start Date: 08/09/22 Status: Ordered Prilosec OTC = 20 mg, By Mouth, Daily, 0 Refills, Maintenance, 12/19/17 14:31:48 Start Date: 12/19/17 Status: Ordered PROzac 40 mg oral capsule 1 capsule = 40 mg, By Mouth, Daily, 0 Refills, Maintenance, 12/19/17 14:33:27 Start Date: 12/19/17 Status: Ordered simvastatin 20 mg oral tablet 20 mg, 1, tablet, By Mouth, Daily at bedtime, Refills 0, Maintenance, 12/19/17 14:32:30 Start Date: 12/19/17 Status: Ordered Trazodone = 25 mg, By Mouth, Daily at bedtime, 0 Refills, Maintenance, 10/26/20 10:32:00 EST, Partial fill upon patient request if the prescription is for a schedule II opioid drug. Start Date: 10/26/20 Status: Ordered Tylenol Arthritis Caplet = 650 mg, By Mouth, Every 8 hours, 0 Refills, Maintenance, 07/12/20 15:27:00 EDT Start Date: 07/12/20 Status: Ordered Ventolin 90 mcg Inhaler Inhalation, Every 6 hours, Refills 0, Maintenance, 06/20/22 15:35:00 EDT Start Date: 06/20/22 Status: Ordered Vitamin D Vitamin D, Refills 0, Maintenance, 10/10/20 8:29:00 EST, Supply Start Date: 10/10/20 Status: Ordered Problem List Condition Confirmation Course Effective Dates Status H ealth Status Informant Cholelithiasis with chronic cholecystitis Confirmed Active Straining with stools Confirmed Active Depression Confirmed Active Epigastric abdominal pain Confirmed Active Family history of colon cancer in mother Confirmed Active Fibromyalgia Confirmed Active Acid reflux Confirmed Active HLD (hyperlipidemia) Confirmed Active HTN (hypertension) Confirmed Active Migraines Confirmed Active Obesity (BMI 30.0-34.9) Confirmed Active Osteoarthritis Confirmed Active Panic attacks Confirmed Active Prediabetes Confirmed Active Scoliosis Confirmed Active Encounter for screening colonoscopy Confirmed Active Postop check Confirmed Active Social History Social History Type Response Smoking Status Never (less than 100 in lifetime) entered on: 07/12/20 Sex Patient Care team information Care Team Personnel Name: Brooklyn Jalloh MD Position: [facility] Physician (General Medicine) Member Role: PCP Address: Address: [address] [place] [address], 1st [place] [address]- Care Team Related Persons Name: RHONA HANNA Name: MARK CHRISTINA Address: home [address] [place] [address] Name: MARK LIGHT Address: home [address] [place] [address] Name: RHONA HUNTER Address: home [address] [place] [address]
--- OUTSIDE RECORDS SUMMARY | 2023-03-10 14:50 | XMS_ITS | Continuity of Care Document ---
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 Start Date: 06/20/22 Stop Date: 06/20/23 Status: Ordered MiraLax oral powder for reconstitution = 17 Gm, By Mouth, Daily, 0 Refills, Maintenance, 02/09/21 10:22:00 EDT, Partial fill upon patient request if the prescription is for a schedule II opioid drug. Start Date: 02/09/21 Status: Ordered NuLYTELY Lemon [place] oral powder for reconstitution See Instructions, As per Colonoscopy Instructions, # 1 each, 0 Refills, Maintenance, 06/20/22 16:14:00 EDT, [facility], Partial fill upon patient request if [...] kit, 0 Refills, Maintenance, 08/09/22 11:16:00 EDT, [facility], Okay to substitute with any gallon [...] Team Personnel Name: Brooklyn Jalloh MD Position: [facility] Physician (General Medicine) Member Role: PCP Address: Address: [address] [place] [address], [address] [place] [address]- Care Team Related Persons Name: RHONA HANNA Name: MARK CHRISTINA Address: home [address] [place] [address] Name: MARK LIGHT Address: home [address] [place] [address] Name: RHONA HUNTER Address: home [address] [place] [address]
== END 2023-03-10 15:28 | disposition home or self-care (01) ==
PROVIDERS: Physician Assistant Medical; Emergency Provider Emergency Medicine; PCP General Practice
DX: N12 Tubulo-interstitial nephritis, not specified as acute or chronic (principal); M54.50 Low back pain, unspecified; R07.89 Other chest pain; R31.9 Hematuria, unspecified; Z20.822 Contact with and (suspected) exposure to COVID-19; Z20.828 Contact with and (suspected) exposure to other viral communicable diseases; Z79.899 Other long term (current) drug therapy
CPT/HCPCS: 0241U; 71046; 74176; 80053; 81001; 83690; 83735; 84484; 85025; 85610; 87086; 87088; 87186; 93005; 99283

== ENCOUNTER 2023-06-10 13:12 | Outpatient (REF) | payer OTHER, SELFPAY | END 2023-06-10 13:13 | disposition home or self-care (01) | LOC: HO.HHCLNP 13:12 | PROVIDERS: Visit Provider Internal Medicine | DX: Z20.822 Contact with and (suspected) exposure to COVID-19 (principal); J40 Bronchitis, not specified as acute or chronic | CPT/HCPCS: 87636 ==

== ENCOUNTER 2023-07-09 10:17 | Outpatient (AMB) | payer OTHER, SELFPAY ==
--- NOTE | 2023-07-09 10:20 | MHC.OFFVIS ---
Intake Vital Signs 07/09/23 10:21 Weight 211 lb 10.3 oz BP 108/70 Blood Pressure Location Rt brachial Position Sitting Pulse 79 Pulse Source Pulse Oximeter Pulse Oximetry (%) 98 Oxygen Delivery Method Room Air Intake Visit Reasons: asthma Allergies shrimp [SHRIMP] Allergy (Unknown, Verified 07/09/23 10:25) UNKNOWN Medication List - Last Reconciled 07/09/23 by Diann Gamez LPN acetaminophen ER (Tylenol 8 Hour) 650 mg PO Q8H albuterol sulfate 90 mcg/actuation (Ventolin HFA) 2 puffs inhalation QID PRN atorvastatin 20 mg PO DAILY azithromycin For 250 mg dose pack: take 500 mg today (day 1), then 250 mg for 4 days (days 2-5) PO baclofen 10 mg PO DAILY Breo Ellipta 200-25 mcg/dose (fluticasone furoate-vilanterol) 1 ea inhalation DAILY NS buspirone 5 mg PO BID ciprofloxacin HCl (Cipro) 500 mg PO BID 7 days estradiol 0.01%(0.1mg/gram) grams vaginal fluconazole 150 mg PO ONCE fluoxetine 40 mg PO QAM fluticasone propionate 50 mcg/actuation 2 sprays intranasal QAM gabapentin 100 mg PO DAILY lactulose 10 grams (15 mL) PO DAILY PRN leg brace (Knee Support Brace) SWETA-SANDY FERNANDOE, LT, L lisinopril 5 mg PO DAILY omeprazole 20 mg PO DAILY phenazopyridine (Pyridium) 200 mg PO TID PRN 6 doses prednisone 0 mg PO simethicone (Gas Relief (simethicone)) 80 mg PO Q8H PRN trazodone 25 mg PO DAILY HPI asthma HPI Details 53-year-old lady, nonsmoker, but with significant exposure to secondhand smoke for over 20 years, followed for mild LEAH and asthma.? Patient has been using her CPAP with reasonable control of her underlying sleep apnea.? Her asthma symptoms a baseline controlled on regimen of Breo and albuterol MDI.? Today she complains of significant sinusitis symptoms causing cough productive of yellowish sputum. PFSH Medical History Bilateral knee pain Chronic pain Essential hypertension Family history of coronary artery disease Fibromyalgia Other and unspecified hyperlipidemia Surgical History H/O section H/O lateral meniscus repair of left knee History of cholecystectomy History of hysterectomy Family History Father History of open heart surgery Brother Hypertension Mother Colon cancer Social History Household Members Other:: son Housing: Apartment Alcohol intake: never Patient Tobacco Use Status: Never used Tobacco Current occupational status: disabled Current occupation: Right Handed Review of Systems Const Denies daytime sleepiness, Denies excessive sweating, Denies fatigue, Denies fever(s), Denies lethargy, Denies malaise, Denies night sweats, Denies snoring and Denies weight loss Eyes Denies blurry vision and Denies itchy eyes ENT Reports nasal congestion, Reports post nasal drip, Denies sinus pain, Reports sinus pressure and Denies other ( Thrush) Card Denies chest pain, Denies pedal edema, Denies dyspnea, Denies orthopnea and Denies paroxysmal nocturnal dyspnea Resp Reports cough, Denies hemoptysis, Reports excessive phlegm production, Denies dyspnea, Denies snoring and Denies wheezing GI Denies abdominal pain and Denies heartburn Musc Denies myalgias, Denies arthralgias and Denies joint swelling Skin/Breast Denies rash Neuro Denies memory loss and Denies seizure-like activity Psych Denies abnormal sleep pattern, Denies anxiety and Denies memory loss Endo Denies excessive sweating, Denies fatigue and Denies heat intolerance Bryant/Lymph Denies easy bruising Aller/Immun Denies itchy eyes, Denies seasonal rhinorrhea and Denies wheezing Physical Exam Vital Signs: Last Vital Signs Pulse 79 07/09/23 10:21 BP 108/70 07/09/23 10:21 Pulse Ox 98 07/09/23 10:21 Oxygen Delivery Method Room Air 07/09/23 10:21 Const General: no acute distress and alert Nutritional Appearance: not obese Orientation/consciousness: Other orientation findings ( oriented) HEENT Head: Yes atraumatic Eyes General: appearance normal, both eyes and all related structures Sclerae: sclerae normal EOM: EOMs intact bilaterally Neck Neck: Yes supple Lymphatic: no lymphadenopathy noted Resp Effort & Inspection: normal respiratory effort and no use of accessory muscles Auscultation: clear to auscultation bilaterally Cardio Rate: regular rate Rhythm: regular rhythm Heart sounds: no gallops, no murmurs and no rubs Skin General skin exam: other ( warm) Extrem General: No clubbing, No cyanosis and No edema Assessment & Plan Assessment & Plan (1) Asthma: Code(s): J45.909 - Unspecified asthma, uncomplicated Plan: Baseline well controlled on Breo and albuterol MDI. Continue current regimen. (2) LEAH (obstructive sleep apnea): Code(s): G47.33 - Obstructive sleep apnea (adult) (pediatric) Plan: Well controlled on current CPAP therapy. Continue CPAP therapy. (3) Rhinitis: Code(s): J31.0 - Chronic rhinitis Plan: Now with worsening chronic rhinitis. Will treat with a course of Augmentin. Medications: New amoxicillin-pot clavulanate 875-125 mg 1 tab PO BID 28 tabs 0RF 14 days Coding Level of Care Code Est Pt Level 4 (13551) Diagnoses Asthma J45.909 LEAH (obstructive sleep apnea) G47.33 Rhinitis J31.0
[2023-07-09 10:21] VITALS: BP 108/70; PULSE 79; O2SAT 98
== END 2023-07-09 10:42 | disposition home or self-care (01) ==
PROVIDERS: PCP General Practice; Visit Provider Internal Medicine Pulmonary Disease
DX: J45.909 Unspecified asthma, uncomplicated (principal); G47.33 Obstructive sleep apnea (adult) (pediatric); J31.0 Chronic rhinitis
CPT/HCPCS: 99214

== ENCOUNTER → 2023-07-09 10:17 | Outpatient (BNVA) | payer OTHER, SELFPAY | PROVIDERS: PCP General Practice; Visit Provider Internal Medicine Pulmonary Disease | DX: J45.909 Unspecified asthma, uncomplicated (principal); J31.0 Chronic rhinitis; G47.33 Obstructive sleep apnea (adult) (pediatric); Z79.899 Other long term (current) drug therapy | CPT/HCPCS: 99212 ==

== ENCOUNTER 2023-08-01 18:43 | Outpatient (REF) | payer OTHER, SELFPAY ==
[2023-08-02 03:25] LABS: CT PCR NOT DETECTED (Not Detect.); NG PCR NOT DETECTED (Not Detect.)
[2023-08-02 16:01] LABS: BV Int Neg Control Negative (Negative); BV Int Pos Control Positive (Positive)
== END 2023-08-01 18:44 | disposition home or self-care (01) ==
LOC: HO.HHCLNP 18:43
PROVIDERS: Visit Provider Student in an Organized Health Care Education/Training Program
DX: N89.8 Other specified noninflammatory disorders of vagina (principal)
CPT/HCPCS: 0353U; 87480; 87510; 87660

== ENCOUNTER 2023-08-26 10:01 | Outpatient (REF) | payer OTHER, SELFPAY ==
[2023-08-26 11:26] LABS: MANUAL DIFF FLAG NO
[2023-08-26 11:53] LABS: Basophils Percent Auto 0.2 % (0-2); Eosinophils Absolute Auto 0.2 X10*3/uL (0.0-0.4); Eosinophils Percent Auto 1.7 % (0-4); Hematocrit 38.4 % (37.0-47.0); Hemoglobin 12.2 g/dl (12.0-16.0); Imm Gran Abs Auto 0.03 X10*3/uL (0.00-0.03); Imm Gran Pct Auto 0.3 % (0.0-0.4); Lymphocytes Absolute Auto 2.7 X10*3/uL (1.2-4.9); Lymphocytes Percent Auto 28.1 % (20-40); Mean Corpuscular HGB Conc 31.8 g/dl (31.0-35.0); Mean Corpuscular Hemoglobin 27.3 pg (27.0-33.0); Mean Corpuscular Volume 85.9 fL (80.0-98.0); Mean Platelet Volume 10.8 fL (9.4-12.3); Monocytes Absolute Auto 0.8 X10*3/uL (0.1-1.2); Monocytes Percent Auto 8.6 % (2-11); Neutrophils Absolute Auto 5.9 x10*3/uL (2.0-8.3); Neutrophils Percent Auto 61.1 % (45-73); Platelet Count 311 X10*3/uL (160-400); Red Blood Count 4.47 X10*6/uL (4.20-5.50); Red Cell Distribution Width 14.5 % (11.0-16.0); White Blood Count 9.7 X10*3/uL (4.8-10.8)
[2023-08-26 12:54] LABS: Alanine Aminotransferase 25 U/L (0-31); Albumin Level 4.2 g/dL (3.5-5.0); Alkaline Phosphatase 147 U/L (39-117); Anion Gap 13 (12-20); Aspartate Amino Transferase 19 U/L (5-31); Bilirubin Total 0.3 mg/dL (0.0-1.0); Blood Urea Nitrogen 12 mg/dL (9-16); Calcium 9.4 mg/dL (8.4-10.2); Carbon Dioxide 25 mmol/L (22-29); Chloride 107 mmol/L (96-108); Estimated Glomerular Filt Rate > 60; Glucose Random 75 mg/dL (60-115); Potassium 3.5 mmol/L (3.3-5.1); Sodium 141 mmol/L (135-145); Total Protein 7.2 g/dL (6.5-8.0)
[2023-08-26 13:11] LABS: TSH reflex Free T4 1.12 uIU/mL (0.32-4.0)
== END 2023-08-26 10:02 | disposition home or self-care (01) ==
LOC: HO.HHCL 10:01
PROVIDERS: Visit Provider General Practice
DX: I10 Essential (primary) hypertension (principal)
CPT/HCPCS: 36415; 80053; 84443; 85025

== ENCOUNTER 2023-11-08 11:26 | Outpatient (REF) | payer OTHER, SELFPAY ==
--- NOTE | ~2023-11-08 | XR_ITS ---
Examination: CT abdomen and pelvis with IV contrast. Cervical spine x-rays. Clinical indication right lower quadrant pain. Neck pain. COMPARISON: CT abdomen pelvis 03/10/2023. TECHNIQUE: 5 views of cervical spine. Axial 5 mm thin and reformatted 3 mm thin sagittal and coronal images of abdomen and pelvis were obtained following IV 85 ml Omnipaque 350. DLP 691. This CT examination was performed using dose optimization technique as appropriate, variously including the following: Automated exposure control Adjustment of MA and/or KV according to patient size(this includes techniques or standardized protocols for targeted exams where dose is matched to indication/reason for exam; extremities or head. Use of iterative reconstruction techniques. FINDINGS: CERVICAL SPINE: There is normal cervical lordosis. The vertebral heights, alignment and disc heights are normal. No visible acute fracture, dislocation or subluxation seen. The prevertebral and paravertebral soft tissues are normal. Abdomen and pelvis: Lung bases: The lung bases are clear. The heart size is normal. Liver, ducts and gallbladder: The liver is normal size, contour and density. No focal lesion or intrahepatic ductal dilatation seen. The gallbladder has been surgically removed. Spleen: Unremarkable. Pancreas: Unremarkable. Adrenal glands: Unremarkable. Kidneys and ureter: Both kidney nephrograms are symmetrical in size and configuration without enlargement. There are no radiopaque renal calculi or hydronephrosis. GI tract: There is scattered stool, diverticuli and gas seen in colon without distention or diverticulitis. Appendix is normal caliber. Stomach is nondistended. Suspect small hiatal hernia. No free air or free fluid seen. Abdominal wall: There is small umbilical hernia containing fat. Pelvis: The urinary bladder is nondistended no free air or free fluid. No abnormal pelvic lymph nodes. The uterus is likely atrophied or surgically removed. Osseous structures: No aggressive lytic or sclerotic process seen. The paravertebral soft tissues are normal. XR/XR cervical spine 3V IMPRESSION: No acute intra-abdominal process seen. Mild constipation. Normal appendix..
== END 2023-11-08 11:27 | disposition home or self-care (01) ==
LOC: HO.HHCX 11:26
PROVIDERS: Visit Provider General Practice
DX: M47.812 Spondylosis without myelopathy or radiculopathy, cervical region (principal)
CPT/HCPCS: 72040

== ENCOUNTER 2023-11-14 09:17 | Emergency (ER) | payer OTHER, SELFPAY ==
--- NOTE | ~2023-11-14 | CT_ITS ---
Examination: CT abdomen and pelvis with IV contrast. Cervical spine x-rays. Clinical indication right lower quadrant pain. Neck pain. COMPARISON: CT abdomen pelvis 03/10/2023. TECHNIQUE: 5 views of cervical spine. Axial 5 mm thin and reformatted 3 mm thin sagittal and coronal images of abdomen and pelvis were obtained following IV 85 ml Omnipaque 350. DLP 691. This CT examination was performed using dose optimization technique as appropriate, variously including the following: Automated exposure control Adjustment of MA and/or KV according to patient size(this includes techniques or standardized protocols for targeted exams where dose is matched to indication/reason for exam; extremities or head. Use of iterative reconstruction techniques. FINDINGS: CERVICAL SPINE: There is normal cervical lordosis. The vertebral heights, alignment and disc heights are normal. No visible acute fracture, dislocation or subluxation seen. The prevertebral and paravertebral soft tissues are normal. Abdomen and pelvis: Lung bases: The lung bases are clear. The heart size is normal. Liver, ducts and gallbladder: The liver is normal size, contour and density. No focal lesion or intrahepatic ductal dilatation seen. The gallbladder has been surgically removed. Spleen: Unremarkable. Pancreas: Unremarkable. Adrenal glands: Unremarkable. Kidneys and ureter: Both kidney nephrograms are symmetrical in size and configuration without enlargement. There are no radiopaque renal calculi or hydronephrosis. GI tract: There is scattered stool, diverticuli and gas seen in colon without distention or diverticulitis. Appendix is normal caliber. Stomach is nondistended. Suspect small hiatal hernia. No free air or free fluid seen. Abdominal wall: There is small umbilical hernia containing fat. Pelvis: The urinary bladder is nondistended no free air or free fluid. No abnormal pelvic lymph nodes. The uterus is likely atrophied or surgically removed. Osseous structures: No aggressive lytic or sclerotic process seen. The paravertebral soft tissues are normal. CT/CT abdomen pelvis w IV con IMPRESSION: No acute intra-abdominal process seen. Mild constipation. Normal appendix..
[2023-11-14 09:21] VITALS: BP 131/91; PULSE 74; RESP 20; TEMP 37.1; O2SAT 98; BMI 34.1
--- OUTSIDE RECORDS SUMMARY | 2023-11-14 09:52 | XMS_ITS | Continuity of Care Document ---
Author Name Unknown Organization [facility] Address [address] [place] [address]- Care Team Providers Care Director Social Welfare Name Role Phone Brooklyn Jalloh MD Primary Care Physician Encounter [facility] Date(s): 05/13/23 - 06/12/23 [facility] [address] [place] [address]- [place] Allergies, Adverse Reactions, Alerts Substance Reaction Severity [...] 16:36:00 EDT, 06/20/22 16:35:00 EDT, REC Powder, [facility], Partial fill upon patient request if the prescription is for a schedule II... Start Date: 06/20/22 Stop Date: 06/20/23 Status: Ordered MiraLax oral powder for reconstitution = 17 Gm, By Mouth, Daily, 0 Refills, Maintenance, 02/09/21 10:22:00 EDT, Partial fill upon patient request if the prescription is for a schedule II opioid drug. Start Date: 02/09/21 Status: Ordered Nutritional Supplements See Instructions, Maintenance, MIRACID GASUSE FOR GAS PAINS, 10/26/20 10:39:00 EST, Supply Start Date: 10/26/20 Status: Ordered Prilosec OTC = 20 mg, [...] Team Personnel Name: Brooklyn Jalloh MD Position: [facility] Physician - Primary Care Member Role: PCP Address: Address: [address] [place] [address], [address] [place] [address]- Care Team Related Persons Name: RHONA HANNA Name: MARK CHRISTINA Address: home [address] [place] [address] Name: MARK LIGHT Address: home [address] [place], [place] Name: RHONA HUNTER Address: home [address] [place] [address]
--- OUTSIDE RECORDS SUMMARY | 2023-11-14 09:53 | XMS_ITS | Continuity of Care Document ---
Author Name Unknown Organization [facility] Address [address] [place] [id number]- Care Team Providers Care Vice President Client Services Name Role Phone Brooklyn Jalloh MD Primary Care Physician [phone] Encounter [facility] Date(s): 05/09/23 - 05/09/[address] [address]- Discharge Disposition: A-D/C Home Attending Physician: Brooks Aldrich MD Admitting Physician: Brooks Aldrich MD Referring Physician: Brooks Aldrich MD Allergies, Adverse Reactions, [...] 16:36:00 EDT, 06/20/22 16:35:00 EDT, REC Powder, [facility], Partial fill upon patient request [...] colonoscopy Confirmed Active Postop check Confirmed Active Procedures Procedure Date Related Diagnosis Body Site Status Colonoscopy and extirpation of lesion of colon 05/09/23 Completed Vital Signs Most recent to oldest [Reference Range]: 1 2 3 Height 165 cm (05/09/23 9:27 AM) Oxygen Saturation [94-100 %] 97 % (05/09/23 10:53 AM) 97 % (05/09/23 10:43 AM) 100 % (05/09/23 9:27 AM) Pulse Rate [55-90 bpm] 70 bpm (05/09/23 9:27 AM) Blood Pressure [90-138/55-84 mm Hg] 112/74mm Hg (05/09/23 10:53 AM) 110/72mm Hg (05/09/23 10:43 AM) 121/69mm Hg (05/09/23 9:27 AM) Respiratory Rate [16-30 br/min] 15 br/min *L* (05/09/23 10:53 AM) 18 br/min (05/09/23 10:43 AM) 13 br/min *L* (05/09/23 9:27 AM) Temperature [96.8-100.4 DegF] 97.6 DegF (05/09/23 9:27 AM) Mode of Delivery (Oxygen) Room air (05/09/23 10:53 AM) Room air (05/09/23 10:43 AM) Room air (05/09/23 9:27 AM) Blood pressure sites Arm, left (05/09/23 10:53 AM) Arm, left (05/09/23 10:43 AM) Arm, left (05/09/23 9:27 AM) Temperature Route Temporal (05/09/23 9:27 AM) Dry Weight 96 kg (05/09/23 9:27 AM) Social History Social History Type Response Smoking Status Never (less than 100 in lifetime) entered on: 07/12/20 Sex Note * Debbie Cartwright RN: PERFORM Event Display: Discharge/Transfer Note Hospital Authored Date: [id number] Nursing Discharge Note Entered On: 05/09/2023 10:49 EDT Performed On: 05/09/2023 10:43 EDT by Debbie Cartwright RN Nursing Discharge Note 2 Discharge Time : 05/09/2023 11:20 EDT Discharge Level of Care at Discharge : Home/Correction/Foster Care Debbie Cartwright RN - 05/09/2023 11:21 EDT Patient Left Unit Via : Wheelchair Patient Accompanied Off Unit with : Responsible adult DC Instructions Provided & Signed by Pt : Yes Patient Understands D/C Instructions : Yes Patient Instructions Discharge Signed : Yes Did Pt have Specialty Bed or Wound Vac : No Debbie Cartwright RN - 05/09/2023 10:43 EDT * Debbie Cartwright RN: PERFORM Event Display: Patient Education/Instruction Authored Date: [id number] Inpatient Adult Discharge Instructions [address] [id number] Name: FRANCISCA MOREAUINO : 1970 Visit: 05/09/2023 07:39:00 Current Date: 05/09/2023 10:49 Account: [id number] Inpatient Adult Discharge Instructions We would like to thank you for allowing us to assist you with your healthcare needs. The following includes patient education materials and information regarding your injury/illness. Our entire staffstrives to provide an excellent experience for our patients and their families. PLEASE ENSURE YOU FOLLOW-UP PER THE INSTRUCTIONS BELOW! ?? YOUR OPINION IS IMPORTANT TO US! Please complete the survey you may receive by mail or email. Your feedback will be used to make improvements to the healthcare experiences of our patients and their families. Surveys are administered by mPortal. ?? If further treatment with your primary care physician or another doctor is recommended, it is important for you to keep the appointment. Call your primary care physician or return to the Emergency Department immediately if your condition worsens, fails to improve, or new symptoms develop. If you need to find a doctor, you can call [facility] [employer] for a referral at [phone] or toll free at [phone]) or log in to [email or web address].. ?? You can view and manage your care through the patient portal or by using a health care michael of your choosing. [employer] is a website that allows you to securely view your medical information including your hospital discharge summary, office visit summaries, medications and follow-up visits. You can also request appointments, renew medications, and request access to your medical information using a health care michael of your choosing, or just ask a question. You can enroll at [email or web address] or register during your next office visit. You have been discharged from [facility], Patient Care Unit: ENDO. If you have any questions regarding these instructions after you leave, please call us and we will be happy to assist you. [facility] Your Care Team Attending Physician Brooks Aldrich MD Discharging Providers Brooks Aldrich MD Reason for Admission COLON SCREEN Tests Performed Below is a partial list of the tests performed during your hospitalization. You may have had other tests and procedures not included in this list. Please discuss all test results with your provider. Primary Care Provider Brooklyn Jalloh MD Advance Directive Health Care Proxy on File Yes - Health Care Proxy Discharge Vitals Temperature: 97.6 DegF Height: 165 cm Pulse Rate: 70 bpm ?? Respiratory Rate:??13 br/min??Low ?? Systolic Blood Pressure: 121 mm Hg ?? Diastolic Blood Pressure: 69 mm Hg ?? Oxygen Saturation: 100 % ?? Studies Pending All tests and labs ordered during this hospital stay have been completed unless listed below. Please discuss all pending results with your provider listed above in these instructions. ?? No incomplete studies found What to do next Instructions From Your Doctor Discharge Orders You Need to Schedule the Following Appointments Follow Up with??As Needed Discharge Medications FRANCISCA CUNNINGHAM :1970 Visit Date:05/09/2023 Medications: Please continue your medications until treatment is completed or stopped by your provider. Medications not listed below should be discontinued. Discuss any questions related to medications with your provider. What How Much When Instructions Next Dose Unchanged Acetaminophen (Tylenol Arthritis Caplet) 650 Milligram Oral Every 8 hours Unchanged Albuterol (Ventolin 90 mcg Inhaler) Inhalation Every 6 hours Unchanged Apap/ Asa/ Caffeine (Excedrin Migraine) Oral Every 6 hours Unchanged Baclofen See instructions 5 mg By Mouth 3 times a day, As needed for SEVERE SPASM ?? Unchanged BusPIRone (BuSpar 10 mg oral tablet) 10 Milligram Oral Twice a day Unchanged Docusate (DOK 100 mg oral tablet) See instructions NEEDED FOR CONSTIPATION ?? Unchanged Durable Medical Equipment (Nutritional Supplements) See Instructions MIRACID GASUSE FOR GAS PAINS ?? Unchanged Fluoxetine (PROzac 40 mg oral capsule) 1 capsule Oral Daily Unchanged fluticasone-vilanterol (Breo Ellipta) Inhalation Daily Unchanged Gabapentin 100 Milligram Oral Unchanged Lisinopril Oral Daily Unchanged Loratadine-Pseudoephedrine (Claritin-D) Oral Every 12 hours Unchanged Miscellaneous Rx (Vitamin D) Unchanged Omeprazole (Prilosec OTC) 20 Milligram Oral Daily Unchanged Polyethylene Glycol 3350 (MiraLax oral powder for reconstitution) 17 gram Oral Daily Unchanged Polyethylene Glycol 3350 (MiraLax oral powder for reconstitution) 17 gram Oral Daily dissolve in water before taking ?? Unchanged Simethicone (Gas-X 80 mg oral tablet, chewable) 1 tab(s) 3 times a day after meals and bedtime Unchanged Simvastatin (simvastatin 20 mg oral tablet) 1 tab(s) Oral Daily at Bedtime Unchanged Trazodone 25 Milligram Oral Daily at Bedtime Test Results Below is a partial list of the most recent Laboratory test results done prior to this discharge. You may have had other tests and procedures not included in this list. Please discuss all test resultswith your provider. Allergies (NKA means No Known Allergies) shellfish??(rash) Problems Active Problems??(17) Acid reflux?? Cholelithiasis with chronic cholecystitis?? Depression?? Encounter for screening colonoscopy?? Epigastric abdominal pain?? Family history of colon cancer in mother?? Fibromyalgia?? HLD (hyperlipidemia)?? HTN (hypertension)?? Migraines?? Obesity (BMI 30.0-34.9)?? Osteoarthritis?? Panic attacks?? Postop check?? Prediabetes?? Scoliosis?? Straining with stools?? Education Materials Below is the list of Educational Leaflet Providered with your Discharge Instructions. Hemorrhoids Discharge Instructions?? Diverticulosis Discharge Instructions?? Colon Polypectomy Discharge Instructions?? Surgery Medical Daystay Surgical Overnight Discharge Instructions?? Stomach Polyps?? Surgery Medical Daystay Surgical Overnight Discharge Instructions?? Valuables and Belongings I fully understand and agree that [facility] accepts no responsibility for all my personal property including clothing, toilet articles, radios, jewelry, dentures, hearing aids, rings, money, or any other property that is in my possession or is brought to me after admission. I understand certain valuables may be placed in a hospital safe for a short period of time. I understand that the hospital is not liable for loss or damage due to accident, fire, or other natural occurrence while said property is in the safe. I accept full responsibility for any personal property that I keep with me, and will not hold the hospital responsible in case of loss or disappearance. I acknowledge that i have been encouraged to send valuables and belongings home. ?? Review of Valuable and Belonging List: With patient Date for Pt to Sign Valuables/Belongings: 05/09/23 09:27:00 ?? Valuables & Belongings ?? Clothes Electronic devices Jewelry Monetary Items Personal devices Miscellaneous Medications (Valuables) Valuables at Bedside Pants, Shirt, Shoes, Undergarments ? Valuables Sent Home ? Valuables Sent to Security ? Other Discharge Information ? Pulmonary Rehab Status?? Pulmonary Rehab Discharge Status?? Respiratory Rate:??13 br/min??Low ? Common Emergency Awareness Tips IS IT A STROKE? Act FAST and Check for these signs: FACE Does the face look uneven? ARM Does one arm drift down? SPEECH Does their speech sound strange? TIME Call at any sign of stroke ?? Heart Attack Signs Chest discomfort: Most heart attacks involve discomfort in the center of the chest and lasts more than a few minutes, or goes away and comes back. It can feel like uncomfortable pressure, squeezing, fullness or pain. Discomfort in upper body: Symptoms can include pain or discomfort in one or both arms, back, neck, jaw or stomach. Shortness of breath: With or without discomfort. Other signs: Breaking out in a cold sweat, nausea, or lightheaded. Remember, MINUTES DO MATTER. If you experience any of these heart attack warning signs, call to get immediate medical attention! ?? Smoking can increase your chances of developing chronic health problems and can cause harmful effects to other family members in your house. If you smoke, you are strongly encouraged to quit. Please call [facility] [employer] at [phone] or [phone] ([phone]) or log in to [email or web address] for referrals to smoking cessation programs. ?? 402 Suicide & Crisis Lifeline is available 17/06 if you or someone you know needs to find a reason to keep living. By calling 871 you'll be connected to a skilled, trained counselor at a crisis center in your area. INPATIENT DISCHARGE INSTRUCTIONS SIGNATURE PAGE CRFRANCISCA CURRIE Location:[facility] Registration Date and Time:05/09/2023 07:39 EDT Primary Care Physician: Brooklyn Jalloh MD, Attending Physician: Brooks Aldrich MD, I FRANCISCA CUNNINGHAM, have received the above patient education materials/instructions and have verbalized understanding. If ambulance or transport services are being used I further acknowledge being given a choice of service. ?? If you need to contact me, please call me at this number: . Patient/Social Media Strategist Name: Patient/Social Media Strategist Signature: Relationship to Patient: Witness Name/Signature: Date: * Debbie Cartwright RN: PERFORM Event Display: Patient Education Leaflets Authored Date: [id number] Hemorrhoids Discharge Instructions ?? 672 ??Hemorrhoids Discharge Instructions ??You must carefully read the Consumer Information Use and Disclaimer below in order to understand and correctly use this information?? About this topic Hemorrhoids are swollen veins in the rectum. Your rectum is where stool leaves your body. You may be able to see or feel your hemorrhoids outside of your body, but some hemorrhoids are inside of yourrectum and cannot be seen. Hemorrhoids can cause itching, pain, and bleeding. Being constipated or having hard stools can make your hemorrhoids worse.?? What care is needed at home? Ask your doctor what you need to do when you go home. Make sure??you ask questions if you do not understand what the doctor says. This??way you will know what you need to do. ??? Soak your bottomin a few inches of warm water for 10 to 15 minutes??at a time. You can do this 2 to 3 times each day. Do not add soap,??bubble bath, or anything to the water. ??? Use icrh-lhi-worziym medicines to treat your hemorrhoids. These??include ointments and creams to help with pain and swelling. You can??also use a product like witch luis antonio to help dry out the skin in the area. ??? To help with constipation: ??? Use stool softeners when needed. ??? Eat high-fiber foods. These include whole grains, fruits, and??vegetables. ??? Drink plenty of water and other fluids each day. This helps to??keep your stools soft. ??? Set a regular schedule to try and have a bowel movement. Do??not ignore the urge to go to the bathroom. Don???t hold it in. ??? Give yourself plenty of time to have a bowel movement, but do not linger on the toilet either, by sitting and reading for a long time. ??? Do mild exercise each day like taking a walk. ??? Avoid heavy lifting or straining while the hemorrhoid is healing. ?? What follow-up care is needed? If your problem does not get better, other care may be needed. Your doctor may ask you to make visits to the office to check on your progress. Be sure to keep these visits.?? What drugs may be needed? The doctor may order drugs to: ??? Help with pain and swelling ??? Ease itching ??? Soften stools ?? Will physical activity be limited? Working out can help with digestion. It might help keep you from having hard stools. Ask your doctor about the best kind of exercise for you. ?? What problems could happen? You may have very bad bleeding. ??? Sometimes, treatments do not work. Some hemorrhoids are very??large. You might need surgery for either of these. ?? When do I need to call the doctor? You have a lot of bleeding from your rectum. ??? Your bowel movement looks like tar. ??? You are not able to pass stool because of pain from your??hemorrhoids. ??? Your pain gets worse and is nothelped by lkrz-vev-lrdcrzs??medicines, warm water, or your home care. ??? You have a fever of 100.4??F (38??C) or higher. ?? Teach Back: Helping You Understand The Teach Back Method helps you understand the information we are giving you. After you talk with the staff, tell them in your own words what you learned. This helps to make sure the staff has described each thing clearly. It also helps to explain things that may have been confusing. Before going home, make sure you can do these: ??? I can tell you about my condition. ??? I can tell you what may help ease my pain. ??? I can tell you what I will do if I have blood in my rectum. Where can I learn more?[employer]https://familydoctor.or g/condition/hemorrhoids/National Digestive Disease Information Clearinghousehttps://www.niddk.nih.go v/health-information/digestive-diseases/hemorrhoids/definition-factsLast Reviewed Scih4889-53-74Fvnehfut Information Use and Disclaimer:This generalized information is a limited summary of diagnosis,treatment, and/or medication information. It is not meant to be comprehensive and should be used asa tool to help the user understand and/or assess potential diagnostic and treatment options. It does NOT include all information about conditions, treatments, medications, side effects, or risks thatmay apply to a specific patient. It is not intended to be medical advice or a substitute for the medical advice, diagnosis, or treatment of a health care provider based on the health care provider's examination and assessment of a patient???s specific and unique circumstances. Patients must speak with a health care provider for complete information about their health, medical questions, and treatment options, including any risks or benefits regarding use of medications. This information does not endorse any treatments or medications as safe, effective, or approved for treating a specific patient. [employer]. and its affiliates disclaim any warranty or liability relating to this information or the use thereof. The use of this information is governed by the Terms of Use, available at??htt ps://www.[employer] Real[employer]time.Zoobean/en/know/wtrmrdzn-xzemhyroophga-riltgFtoo Updated 01/17/22? * Debbie Cartwright RN: PERFORM Event Display: Patient Education Leaflets Authored Date: [id number] Diverticulosis Discharge Instructions ?? 680 Diverticulosis Discharge Instructions ??You must carefully read the Consumer Information Use and Disclaimer below in order to understand and correctly use this information?About this topicDiverticulosis is a problem of the large bowel or colon. The wall of the bowel becomes weak and pushes outward. They form balloon-like pouches called diverticula or tics. When you have hard stool, you strain to have a bowel movement. This raises the pressure in the bowel and causes pouches or bulges to form. Most often, they do not cause a problem. If they become infected, you have diverticulitis. If you have both bleeding and infection, it is diverticular disease.??What care is needed at home? Ask your doctor what you need to do when you go home. Make sure??you ask questions if you do not understand what the doctor says. ??? Eat more whole grains, vegetables, and fruits. ??? Do not wait to have a bowel movement. Go as soon as you have the??urge. ??? Drink 8 to 10 glasses of water each day. Talk to your doctor if you are??drinking less fluids due to a health problem. ??? Be active. Walk,garden, or do something active for 30 minutes or more on most days of the week. ??What follow-up care is needed?Your doctor may ask you to make visits to the office to check on your progress. Be sure to keep these visits.??What drugs may be needed?Most often with diverticulosis you will not need to take any drugs.??Will physical activity be limited?When you are in pain, you may need to rest in bed. To ease the pain, use a heat compress on your belly. This should last only for a few days.??What changes to diet are needed?Talk to your doctor about any changes you need to make to your diet.? You do not need to avoid seeds, nuts, corn, or other similar foods. ??? You will need to eat food rich in fiber and drink more water. o Eat 5 or more servings of fresh fruits and vegetables every day. o Eat 6 or more servings of whole-wheat grain breads and??cereals. ??? Try toget 25 to 30 grams of fiber every day. Read the labels to??learn how much fiber is in foods. ??? Donot drink coffee, tea, or beer, wine, and mixed drinks (alcohol). ??What problems could happen?You may develop diverticulitis, which may cause:? Pockets or pouches in your bowel may be infected or filled with pus. ??? Hole or tear in your bowel ??? Part of your bowel to become narrow ??? You to need surgery ??What can be done to prevent this health problem?The best way to keep from having diverticulosis is to keep your bowel movements soft and normal. To keep more pouches from forming:? Talk with your doctor about adding an kuup-mfm-zrqjepq (OTC) fiber??product to keep your stools soft. ??? Limithow much pain drugs you take. Overuse of some pain drugs can??cause hard stools; talk with your doctor. ??? When do I need to call the doctor? Signs of infection. These include a fever of 100.4??F (38??C) or higher,??chills. ??? Mild pain or cramping in the lower part of the belly ??? A feelingof bloating in the belly ??? Belly pain that gets worse ??? Blood in your stool ??? Upset stomach or throwing up ??? Stools get too loose or too hard ??? Long-term hard stools ??Teach Back: Helping You UnderstandThe Teach Back Method helps you understand the information we are giving you. After you talk with the staff, tell them in your own words what you learned. This helps to make sure the staff has described each thing clearly. It also helps to explain things that mayhave been confusing. Before going home, make sure you are able to do these:? I can tell you abo ut my condition. ??? I can tell you what changes I need to make with my diet or drugs. ??? I can tell you what I will do if I have pain or cramping in my lower belly??or I have more belly pain. ??Where can I learn more???FamilyDoctor.orghttp://familydoctor.org/familydoctor/en/diseases-conditio ns/div erticular-disease.htmlNHShttps://www.nhs.uk/conditions/eqydrbzbjelj-rzmffpj-fsy- diverticulitis/LastReviewed Xwyx9899-78-13Amtjidco Information Use and Disclaimer:This generalized information is a limited summary of diagnosis, treatment, and/or medication information. It is not meant to be comprehensive and should be used as a tool to help the user understand and/or assess potential diagnostic and treatment options. It does NOT include all information about conditions, treatments, medications, side effects, or risks that may apply to a specific patient. It is not intended to be medical adviceor a substitute for the medical advice, diagnosis, or treatment of a health care provider based on the health care provider's examination and assessment of a patient???s specific and unique circumstances. Patients must speak with a health care provider for complete information about their health, medical questions, and treatment options, including any risks or benefits regarding use of medications. This information does not endorse any treatments or medications as safe, effective, or approved for treating a specific patient. [employer]. and its affiliates disclaim any warranty or liabilityrelating to this information or the use thereof. The use of this information is governed by the Terms of Use, available at??https://www.Welcome Real-time.com/en/know/qegdcraw-macmgdmaxggnr-hvxvxAqgp Updat ed 01/17/22? * Debbie Cartwright RN: PERFORM Event Display: Patient Education Leaflets Authored Date: [id number] Colon Polypectomy Discharge Instructions ?? 682 ?? Colon Polypectomy Discharge Instructions ??You must carefully read the Consumer Information Use and Disclaimer below in order to understand and correctly use this information??About this topicThe colon is also called the large intestine. It is a long, hollow tube at the end of your digestive tract. It absorbs water from solid waste and changes it from liquid to a solid bowel movement.??A colon polyp is a growth of extra tissue that is not normally in your colon. Colon polyps do not often cause any signs. Most colon polyps are not cancer, but some polyps may turn into cancer. The doctor takes the polyps out during a procedure called a colonoscopy and sends them to the lab for a check to make sure there is no cancer.??You may have a colon polyp or multiple polyps removed. The doctor will send them to the lab to see what type they are. If a polyp is very large, it may need to be removed by surgery.??What care is needed at home? Ask your doctor what you need to do when you go home. Make sure??you ask questions if you do not understand what the doctor says. ??? Do not drive for 24 hours after a colonoscopy. ??? Take your drugs as ordered by your doctor. ??? Go back to your normaldiet unless your doctor has told you to make? some changes in your diet. ??? Rest ??What follow-up care is needed? Your doctor may ask you to make visits to the office to check on your??progress. Be sure to keep these visits. ??? Your doctor may suggest you get tested regularly. People with colon??polyps need to have a colonoscopy regularly to check for the growth??of new polyps. ??? Some polyps may not be removed, and more surgery may be needed. ??? The results of the polyp testing will be given to you at one of these??visits. ??What drugs may be needed?The doctor may order drugs to: ??? Prevent hard stools ??? Help with pain ??? Reduce your risk of colon polyps or colon cancer ??Will physical activity be limited?You may feel sleepy after the colonoscopy. Try to get some rest.??What can be done to prevent this health problem? Have regular colonoscopies.? Eat foods high in fiber. ??? Eat foods low in fat. ??? Limit your intake of beer, wine, and mixed drinks (alcohol). ??? Ask your doctor or dietitian for a diet that is right for you. Include??calcium in your diet. Good sources of calcium include milk, cheese,??and yogurt. ??When do I need to call the doctor? Signs of infection. These include a fever of 100.4??F (38??C) or higher,??chills, and anal itching or pain. ??? Bleeding from rectum that gets worse? Belly becomes swollen and sore ??? Upset stomach and throwing up continues after you return home ??? Not being able to move your bowels ??? Weight loss without trying ??? Blood in your stool ??Teach Back: Helping You UnderstandThe Teach Back Method helps you understand the information we are giving you. After you talk with the staff, tell them in your own words what you learned. This helps to make sure the staff has described each thing clearly. It also helps to explain things that mayhave been confusing. Before going home, make sure you can do these:? I can tell you about my co ndition. ??? I can tell you what changes I need to make with my diet. ??? I can tell you what I will do if my stomach is swollen, I have belly pain,??or there is blood in my stool. ??Where can I learn more?BetterHealthhttps://www.betterhealth.claudia.gov.au/health/ConditionsAndTreatme nts/colonoscopyNHSh ttps://www.nhs.uk/conditions/bowel-polyps/UpToDatehttps://www.Agavideo.Zoobean/robi nts/rrfrd-yzoatz-sqipeg-the-basics??Last Reviewed Acuz2597-04-41Coijioam Information Use and Disclaimer:This generalized information is a limited summary of diagnosis, treatment, and/or medication information. It is notmeant to be comprehensive and should be used as a tool to help the user understand and/or assess potential diagnostic and treatment options. It does NOT include all information about conditions, treatments, medications, side effects, or risks that may apply to a specific patient. It is not intendedto be medical advice or a substitute for the medical advice, diagnosis, or treatment of a health care provider based on the health care provider's examination and assessment of a patient???s specificand unique circumstances. Patients must speak with a health care provider for complete information about their health, medical questions, and treatment options, including any risks or benefits regarding use of medications. This information does not endorse any treatments or medications as safe, effective, or approved for treating a specific patient. [employer]. and its affiliates disclaim any warranty or liability relating to this information or the use thereof. The use of this information is governed by the Terms of Use, available at??https://www.Welcome Real-time.Zoobean/en/know/clinical-effectiveness- termsLast Updated 01/17/22? Patient Care team information Care Team Personnel Name: Brooklyn Jalloh MD Position: [facility] Physician - Primary Care Member Role: PCP Address: Address: [address] [place] [address], [address] [place] [address]- Care Team Related Persons Name: RHONA HANNA Name: MARK CHRISTINA Address: [address] [place], [place] Name: MARK LIGHT Address: home [address] [place], [place] Name: RHONA HUNTER Address: home [address] [place] [address]
--- OUTSIDE RECORDS SUMMARY | 2023-11-14 09:53 | XMS_ITS | Continuity of Care Document ---
Author Name Unknown Organization [facility] Address [address] [place] [address]- Care Team Providers Care Custom Home Installer Name Role Phone Brooklyn Jalloh MD Primary Care Physician [phone] Encounter [facility] Date(s): 05/08/23 - 06/07/23 [facility] [address] [place] [id number]- [place] Allergies, Adverse Reactions, Alerts Substance Reaction [...] 16:36:00 EDT, 06/20/22 16:35:00 EDT, REC Powder, [facility], Partial fill upon patient [...] Team Personnel Name: Brooklyn Jalloh MD Position: [facility] Physician - Primary Care Member Role: PCP Address: Address: [address] [place] [address], 1st [place] [address]- Care Team Related Persons Name: RHONA HANNA Name: MARK CHRISTINA Address: home [address] [place] [address] Name: MARK LIGHT Address: home [address] [place] [address] Name: RHONA HUNTER Address: home [address] [place] [id number]
[2023-11-14 10:03] LABS: MANUAL DIFF FLAG NO
[2023-11-14 10:04] LABS: Basophils Percent Auto 0.2 % (0-2); Eosinophils Absolute Auto 0.2 X10*3/uL (0.0-0.4); Eosinophils Percent Auto 1.5 % (0-4); Imm Gran Abs Auto 0.03 X10*3/uL (0.00-0.03); Imm Gran Pct Auto 0.2 % (0.0-0.4); Lymphocytes Absolute Auto 3.2 X10*3/uL (1.2-4.9); Lymphocytes Percent Auto 25.8 % (20-40); Mean Corpuscular HGB Conc 31.8 g/dl (31.0-35.0); Mean Corpuscular Hemoglobin 26.7 pg (27.0-33.0); Mean Corpuscular Volume 83.8 fL (80.0-98.0); Mean Platelet Volume 10.2 fL (9.4-12.3); Monocytes Absolute Auto 0.8 X10*3/uL (0.1-1.2); Monocytes Percent Auto 6.2 % (2-11); Neutrophils Absolute Auto 8.1 x10*3/uL (2.0-8.3); Neutrophils Percent Auto 66.1 % (45-73); Platelet Count 290 X10*3/uL (160-400); Red Blood Count 5.25 X10*6/uL (4.20-5.50); Red Cell Distribution Width 14.1 % (11.0-16.0); White Blood Count 12.3 X10*3/uL (4.8-10.8)
[2023-11-14 10:15] LABS: Appearance Urine Clear; Color Urine Yellow; Glucose Urine UA Negative (Negative); Leukocyte Esterase Urine Negative (Negative); Nitrite Urine Negative (Negative); PH 7.5 (5.0-9.0); Urine Blood Negative (Negative); Urine Ketones Negative (Negative); Urine Protein Negative (Neg-Trace)
[2023-11-14 10:19] LABS: UPreg QC Valid YES; Urine Pregnancy NEGATIVE (NEGATIVE)
[2023-11-14 10:20] LABS: Alanine Aminotransferase 31 U/L (0-31); Albumin Level 4.6 g/dL (3.5-5.0); Alkaline Phosphatase 174 U/L (39-117); Anion Gap 14 (12-20); Aspartate Amino Transferase 24 U/L (5-31); Bilirubin Direct 0.2 mg/dL (0.0-0.5); Bilirubin Total 0.4 mg/dL (0.0-1.0); Blood Urea Nitrogen 13 mg/dL (9-16); Carbon Dioxide 27 mmol/L (22-29); Chloride 104 mmol/L (96-108); Estimated Glomerular Filt Rate > 60; Glucose Random 104 mg/dL (60-115); Lipase 18 U/L (8-78); Potassium 4.1 mmol/L (3.3-5.1); Sodium 141 mmol/L (135-145); Total Protein 8.3 g/dL (6.5-8.0)
[2023-11-14 18:06] VITALS: BP 127/81; PULSE 78; RESP 18; TEMP 36.8; O2SAT 98
--- NOTE | 2023-11-14 18:28 | ED_ITS ---
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 Patient reports that she has a history of L4-L5 ?issues. ? She reports having had right-sided lower back pain for the last week She states that she woke up this morning at 3:00 a.m. with right lower abdominal pain and vomiting/diarrhea Patient reports a history of hysterectomy as well as cholecystectomy Denies any other abdominal surgeries. Denies any fevers, chills Denies any sick contact She states her pain is an 07/04 Related Data Home Medications Medication Instructions Recorded Confirmed atorvastatin 20 mg tablet 20 mg PO DAILY 09/14/20 07/09/23 baclofen 10 mg tablet 10 mg PO DAILY 09/14/20 07/09/23 buspirone 5 mg tablet 5 mg PO BID 09/14/20 11/14/23 lisinopril 5 mg tablet 5 mg PO DAILY 09/14/20 07/09/23 omeprazole 20 mg capsule,delayed 20 mg PO DAILY 09/14/20 11/14/23 release trazodone 50 mg tablet 25 mg PO DAILY 09/14/20 07/09/23 acetaminophen 650 mg 650 mg PO Q8H 02/13/22 07/09/23 tablet,extended release (Tylenol 8 Hour) gabapentin 100 mg capsule 100 mg PO DAILY 02/13/22 07/09/23 estradiol 0.01% (0.1 mg/gram) g vaginal 02/01/23 07/09/23 vaginal cream fluconazole 150 mg tablet 150 mg PO ONCE 02/01/23 07/09/23 fluticasone propionate 50 2 spray intranasal QAM 02/01/23 07/09/23 mcg/actuation nasal spray,suspension simethicone 80 mg chewable tablet 80 mg PO Q8H PRN gas 02/01/23 07/09/23 (Gas Relief (simethicone)) fluoxetine 20 mg capsule 40 mg PO QAM 02/13/23 07/09/23 prednisone 10 mg tablet 0 mg PO 02/13/23 02/13/23 Previous Rx's Medication Instructions Recorded leg brace (Knee Support Brace) #1 ea 09/28/20 lactulose 10 gram/15 mL oral 10 g (15 mL) PO DAILY PRN 02/07/22 solution constipation #237 mL azithromycin 250 mg tablet See Rx Instructions PO .COMPLEX #6 02/01/23 tabs ciprofloxacin HCl 500 mg tablet 500 mg PO BID 7 days #14 tabs 03/10/23 (Cipro) phenazopyridine 200 mg tablet 200 mg PO TID PRN pain 6 doses #6 03/10/23 (Pyridium) tabs amoxicillin 875 mg-potassium 1 tab PO BID 14 days #28 tabs 07/09/23 clavulanate 125 mg tablet albuterol sulfate 90 mcg/actuation 2 puff inhalation QID PRN for 07/12/23 aerosol inhaler (Ventolin HFA) wheezing #18 grams fluticasone furoate 200 1 ea inhalation DAILY #60 ea 10/07/23 mcg-vilanterol 25 mcg/dose inhalation powder (Breo Ellipta) ondansetron 4 mg disintegrating 4 mg PO Q8H PRN nausea and 11/14/23 tablet vomiting #20 tabs Allergies Allergy/AdvReac Type Severity Reaction Status Date / Time shrimp [SHRIMP] Allergy Unknown UNKNOWN Verified 11/14/23 09:23 Review of Systems 2 Constitutional: Constitutional: Denies body ache(s), Denies chills, Denies fever(s) and Reports headache(s) ENT: Reports headache(s) and Denies sore throat Cardiovascular: Cardiovascular: Denies chest pain and Denies dyspnea Respiratory: Respiratory: Denies cough and Denies dyspnea Gastrointestinal: Gastrointestinal: Reports abdominal pain, Reports diarrhea, Reports nausea and Reports vomiting Genitourinary: Genitourinary: Denies difficulty voiding and Denies dysuria Musculoskeletal: Musculoskeletal: Reports back pain Integumentary/Breasts: Skin/Breast: Denies rash Neurologic: Reports headache(s) [facility] Past Medical History Medical History Bilateral knee pain Chronic pain Essential hypertension Family history of coronary artery disease Fibromyalgia Other and unspecified hyperlipidemia Surgical History H/O section H/O lateral meniscus repair of left knee History of cholecystectomy History of hysterectomy Family History Family History Father History of open heart surgery Brother Hypertension Mother Colon cancer Social History Social History Household Members Other:: son Housing: Apartment Alcohol intake: never Patient Tobacco Use Status: Never used Tobacco Smoked in Last 30 Days: No Use of substances other than those prescribed or required for medical reasons: No Advance Directives: No Advance Directives Information Provided: Yes Patient : No Current occupational status: disabled Current occupation: Right Handed Physical Exam ED Vital Signs: Vital Signs - 24 hr 11/14/23 09:21 11/14/23 18:06 11/14/23 20:14 Temperature 98.7 F 98.2 F Pulse Rate 74 78 66 Respiratory Rate 20 18 16 Blood Pressure 131/91 H 127/81 127/87 Pulse Oximetry 98 98 100 Oxygen Delivery Method Room Air Room Air Room Air BMI result Body Mass Index 34.1 Const General: healthy appearing, comfortable, no acute distress, alert and awake Nutritional Appearance: well nourished Orientation/consciousness: patient oriented x3 HENMT Head: Yes normocephalic and Yes atraumatic Eyes Eyelids: Yes eyelids normal Conjunctivae: conjunctivae normal Sclerae: sclerae normal Corneas: corneas normal Pupils: Equal, round and reactive pupils present EOM: EOMs intact bilaterally Neck Neck: Yes full ROM Resp Effort & Inspection: normal respiratory effort, able to speak in complete sentences and not labored Cardio Rate: regular rate Rhythm: regular rhythm GI Inspection: No distended Palpation (GI): Soft to palpation, not firm, Tenderness to palpation present (GI) in the RLQ; with no rebound tenderness, no guarding and not rigid Back/Spine/Pelvis Other: Patient is tender in the right lumbar paraspinous region. No vertebral tenderness. No step-off deformities. Straight leg raise negative bilaterally. Skin General skin exam: no rashes or lesions noted and elasticity normal Neuro Other: Strength to major muscle groups of the lower extremities 5/5 bilaterally General: patient oriented x3 Cranial nerves: Yes Equal, round and reactive pupils present and Yes Bilaterally intact EOM present Cognition (Neuro): normal cognition Extrem Other: Moving all extremities well without any obvious deformities Course Reevaluation(s) Reevaluation #1: CT scan shows no acute findings. The patient's back pain is likely related to muscular origin. No significant findings in the abdomen pelvis to explain the vomiting, this is likely viral Time: 22:07 Medications Administered Discontinued Medications Generic Name Dose Route Start Last Admin Trade Name Harjit PRN Reason Stop Dose Admin Buspirone HCl 5 mg 11/14/23 19:46 11/14/23 20:09 Buspirone Hcl 5 Mg Tablet PO 11/14/23 19:47 5 mg ONCE ONE Administration Sodium Chloride 1,000 mls @ 999 mls/hr 11/14/23 18:30 11/14/23 19:03 Ns IV 11/14/23 19:30 999 mls/hr .Q1H1M TIKI Administration Iohexol 100 ml 11/14/23 20:42 11/14/23 20:43 Iohexol 350 Mg/Ml 100 Ml Infus..Btl IV 11/14/23 20:43 85 ml ONCE ONE Administration Ketorolac Tromethamine 30 mg 11/14/23 18:21 11/14/23 19:05 Ketorolac Tromethamine 30 Mg/Ml Vial IVPUSH 11/14/23 18:22 30 mg ONCE ONE Administration Omeprazole 20 mg 11/14/23 19:46 11/14/23 20:09 Omeprazole 20 Mg Capsule.Dr PO 11/14/23 19:47 20 mg ONCE ONE Administration Ondansetron HCl 4 mg 11/14/23 18:21 11/14/23 19:04 Ondansetron Hcl 4 Mg/2 Ml Vial IVPUSH 11/14/23 18:22 4 mg ONCE ONE Administration Medical Decision Making Medical Decision Making MDM Narrative: 53-year-old female presents for evaluation of multiple complaints. She states that she had back pain starting 1 week ago and abdominal pain nausea vomiting started today. It is clinically these 2 issues seem unrelated. The patient likely has acute on chronic back pain/muscle spasms related to her chronic back pain. She has no warning signs for cauda equina syndrome. She likely has a viral GI issue causing the vomiting count dental pain and diarrhea. Will be given that she is tender in the right lower quadrant with an elevated leukocytosis, will get a CT scan of the pelvis to evaluate for acute appendicitis. Differential Diagnosis Differential Diagnoses: The differential diagnosis associated with the presentation includes Chronic back pain Muscle strain Radiculopathy Sciatica Acute appendicitis Viral gastroenteritis Lab Data [facility] Lab Attestation statement: I reviewed the patient's lab results. Leukocytosis to 12.3 without a left shift. No significant anemia or platelet abnormality. Chemistries reviewed without any significant abnormalities. Alk- phos is slightly elevated to 174 which is consistent with her recent baseline. 11/14/23 09:51 11/14/23 09:51 Labs: Lab Results 11/14/23 11/14/23 Range/Units 09:51 10:04 WBC 12.3 H (4.8-10.8) X10*3/uL RBC 5.25 (4.20-5.50) X10*6/uL Hgb 14.0 (12.0-16.0) g/dl Hct 44.0 (37.0-47.0) % MCV 83.8 (80.0-98.0) fL MCH 26.7 L (27.0-33.0) pg MCHC 31.8 (31.0-35.0) g/dl RDW 14.1 (11.0-16.0) % Plt Count 290 (160-400) X10*3/uL MPV 10.2 (9.4-12.3) fL Immature Gran % (Auto) 0.2 (0.0-0.4) % Neut % (Auto) 66.1 (45-73) % Lymph % (Auto) 25.8 (20-40) % [place] % (Auto) 6.2 (2-11) % Eos % (Auto) 1.5 (0-4) % Baso % (Auto) 0.2 (0-2) % Lymph # (Auto) 3.2 (1.2-4.9) X10*3/uL [place] # (Auto) 0.8 (0.1-1.2) X10*3/uL Eos # (Auto) 0.2 (0.0-0.4) X10*3/uL Baso # (Auto) 0.0 (0.0-0.2) X10*3/uL Abs Immat Gran (auto) 0.03 (0.00-0.03) X10*3/uL Absolute Neuts (auto) 8.1 (2.0-8.3) x10*3/uL Absolute Nucleated RBC 0.000 (0.0-0.012) X10*3/uL Nucleated RBC % (auto) 0.0 (0.0-0.2) /100WBC Sodium 141 (135-145) mmol/L Potassium 4.1 (3.3-5.1) mmol/L Chloride 104 (96-108) mmol/L Carbon Dioxide 27 (22-29) mmol/L Anion Gap 14 (12-20) BUN 13 (9-16) mg/dL Creatinine 0.77 (0.5-1.4) mg/dL Estim Creat Clear Calc 93.0 Estimated GFR > 60 Random Glucose 104 (60-115) mg/dL Calcium 10.0 D (8.4-10.2) mg/dL Total Bilirubin 0.4 (0.0-1.0) mg/dL Direct Bilirubin 0.2 (0.0-0.5) mg/dL AST 24 (5-31) U/L ALT 31 (0-31) U/L Alkaline Phosphatase 174 H (39-117) U/L Total Protein 8.3 H (6.5-8.0) g/dL Albumin 4.6 (3.5-5.0) g/dL Lipase 18 (8-78) U/L Urine Color Yellow Urine Appearance Clear Urine pH 7.5 (5.0-9.0) Ur Specific [place] 1.020 (1.005-1.025) Urine Protein Negative (Neg-Trace) mg/dL Urine Glucose (UA) Negative (Negative) mg/dL Urine Ketones Negative (Negative) mg/dL Urine Blood Negative (Negative) Urine Nitrite Negative (Negative) Ur Leukocyte Esterase Negative (Negative) Urine Test NEGATIVE (NEGATIVE) Independent Interpretation I performed an independent interpretation of an: CT Scan (No acute finding) Radiology Impression Discussion of test interpretation with radiology: I have reviewed the radiologist's reading. (Mild constipation, no acute finding) Discharge Plan Discharge Clinical Impression: Back pain, Vomiting Patient Disposition: Home, Self-Care Instructions: Acute Nausea and Vomiting (ED), Acute Low Back Pain (ED) Additional Instructions: Your CT scan did not show any concerning abnormalities. It did show mild constipation. Your vomiting is likely related to a stomach virus Use Zofran as needed for nausea or vomiting. Use Motrin/Tylenol for your back pain Follow-up with your primary doctor Prescriptions: New ondansetron 4 mg tablet,disintegrating 4 mg PO Q8H PRN (Reason: nausea and vomiting) Qty: 20 0RF No Action (DME) Knee Support Brace Misc See Rx Instructions .ROUTE .MEDSUPPLY Qty: 1 0RF Rx Instructions: SWETA-PULL LITE, LT, L albuterol sulfate [Ventolin HFA] 90 mcg/actuation HFA aerosol inhaler 2 puff inhalation QID PRN (Reason: for wheezing) Qty: 18 6RF Breo Ellipta 200-25 mcg/dose blister with device 1 ea inhalation DAILY Qty: 60 6RF lactulose 10 gram/15 mL solution 10 g PO DAILY PRN (Reason: constipation) Qty: 237 0RF ciprofloxacin HCl [Cipro] 500 mg tablet 500 mg PO BID 7 Days Qty: 14 0RF phenazopyridine [Pyridium] 200 mg tablet 200 mg PO TID PRN (Reason: pain) Qty: 6 0RF omeprazole 20 mg capsule,delayed release(DR/EC) 20 mg PO DAILY trazodone 50 mg tablet 25 mg PO DAILY buspirone 5 mg tablet 5 mg PO BID baclofen 10 mg tablet 10 mg PO DAILY lisinopril 5 mg tablet 5 mg PO DAILY atorvastatin 20 mg tablet 20 mg PO DAILY gabapentin 100 mg capsule 100 mg PO DAILY acetaminophen [Tylenol 8 Hour] 650 mg tablet extended release 650 mg PO Q8H fluoxetine 20 mg capsule 40 mg PO QAM prednisone 10 mg tablet 0 mg PO simethicone [Gas Relief (simethicone)] 80 mg tablet,chewable 80 mg PO Q8H PRN (Reason: gas) fluticasone propionate 50 mcg/actuation spray,suspension 2 spray intranasal QAM fluconazole 150 mg tablet 150 mg PO ONCE estradiol 0.01 % (0.1 mg/gram) cream vaginal azithromycin 250 mg tablet See Rx Instructions PO .COMPLEX Qty: 6 0RF Rx Instructions: For 250 mg dose pack: take 500 mg today (day 1), then 250 mg for 4 days (days 2-5) PO amoxicillin-pot clavulanate 875-125 mg tablet 1 tab PO BID 14 Days Qty: 28 0RF
[2023-11-14] MEDS: 0.9 % Sodium Chloride 1,000 ML 999 ML IV (19:03)
[2023-11-14] MEDS: ondansetron HCL 4 MG/2 ML VIAL IVPUSH (19:04)
[2023-11-14] MEDS: Ketorolac Tromethamine 30 MG/ML VIAL IVPUSH (19:05)
[2023-11-14] MEDS: Omeprazole 20 MG CAPSULE.DR PO (20:09)
[2023-11-14] MEDS: busPIRone HCl 5 MG TABLET PO (20:09)
--- NOTE | 2023-11-14 20:12 | PC.NURSE ---
this RN resumed care of pt at this time. pt returned from CT - access blew. new 22gIV placed in the left hand. IV fluids continuously running at this time. pt states that she became anxious while in [place] - requesting buspar to calm nerves - medication verified/ordered by provider. medication administered per provider order. resting comfortably in no apparent distress. pt awaiting CT results at this time. family bedside. call muller placed within reach.
[2023-11-14 20:14] VITALS: BP 127/87; PULSE 66; RESP 16; O2SAT 100
[2023-11-14] MEDS: iohexoL 350 MG/ML 100 ML INFUS..BTL IV (20:43)
== END 2023-11-14 22:22 | disposition home or self-care (01) ==
PROVIDERS: Emergency Provider Internal Medicine; PCP General Practice
DX: M54.50 Low back pain, unspecified (principal); R11.2 Nausea with vomiting, unspecified; R10.31 Right lower quadrant pain; M54.2 Cervicalgia; Z79.899 Other long term (current) drug therapy
CPT/HCPCS: 36415; 74177; 80048; 80076; 81003; 81025; 83690; 85025; 96361; 96374; 96375; 99284; 99285; J1885; J2405; Q9967

== ENCOUNTER 2023-12-25 12:27 | Outpatient (REF) | payer OTHER, SELFPAY ==
[2023-12-25 13:14] LABS: MANUAL DIFF FLAG NO
[2023-12-25 13:17] LABS: Basophils Percent Auto 0.1 % (0-2); Eosinophils Percent Auto 0.1 % (0-4); Hematocrit 42.6 % (37.0-47.0); Hemoglobin 13.7 g/dl (12.0-16.0); Imm Gran Abs Auto 0.08 X10*3/uL (0.00-0.03); Imm Gran Pct Auto 0.5 % (0.0-0.4); Lymphocytes Absolute Auto 3.2 X10*3/uL (1.2-4.9); Lymphocytes Percent Auto 20.8 % (20-40); Mean Corpuscular HGB Conc 32.2 g/dl (31.0-35.0); Mean Corpuscular Hemoglobin 26.8 pg (27.0-33.0); Mean Corpuscular Volume 83.4 fL (80.0-98.0); Mean Platelet Volume 10.1 fL (9.4-12.3); Monocytes Percent Auto 6.7 % (2-11); Neutrophils Percent Auto 71.8 % (45-73); Platelet Count 442 X10*3/uL (160-400); Red Blood Count 5.11 X10*6/uL (4.20-5.50); Red Cell Distribution Width 13.9 % (11.0-16.0); White Blood Count 15.4 X10*3/uL (4.8-10.8)
== END 2023-12-25 12:28 | disposition home or self-care (01) ==
LOC: HO.HHCL 12:27
PROVIDERS: Visit Provider General Practice
DX: J40 Bronchitis, not specified as acute or chronic (principal)
CPT/HCPCS: 36415; 85025

== ENCOUNTER 2024-01-28 10:51 | Outpatient (REF) | payer OTHER, SELFPAY ==
[2024-01-28 11:40] LABS: MANUAL DIFF FLAG NO
[2024-01-28 11:47] LABS: Basophils Percent Auto 0.3 % (0-2); Eosinophils Absolute Auto 0.2 X10*3/uL (0.0-0.4); Eosinophils Percent Auto 1.5 % (0-4); Hematocrit 39.3 % (37.0-47.0); Hemoglobin 12.7 g/dl (12.0-16.0); Imm Gran Abs Auto 0.04 X10*3/uL (0.00-0.03); Imm Gran Pct Auto 0.4 % (0.0-0.4); Lymphocytes Absolute Auto 2.8 X10*3/uL (1.2-4.9); Mean Corpuscular HGB Conc 32.3 g/dl (31.0-35.0); Mean Corpuscular Hemoglobin 27.3 pg (27.0-33.0); Mean Corpuscular Volume 84.3 fL (80.0-98.0); Monocytes Absolute Auto 0.7 X10*3/uL (0.1-1.2); Monocytes Percent Auto 6.8 % (2-11); Neutrophils Absolute Auto 6.3 x10*3/uL (2.0-8.3); Platelet Count 339 X10*3/uL (160-400); Red Blood Count 4.66 X10*6/uL (4.20-5.50); Red Cell Distribution Width 14.3 % (11.0-16.0); White Blood Count 10.1 X10*3/uL (4.8-10.8)
== END 2024-01-28 10:52 | disposition home or self-care (01) ==
LOC: HO.HHCL 10:51
PROVIDERS: Visit Provider General Practice
DX: J40 Bronchitis, not specified as acute or chronic (principal)
CPT/HCPCS: 36415; 85025

== ENCOUNTER 2024-02-07 09:03 | Outpatient (AMB) | payer OTHER, SELFPAY ==
[2024-02-07 09:05] VITALS: BP 112/72; PULSE 79; O2SAT 97; BMI 34.8
--- NOTE | 2024-02-07 09:05 | MHC.OFFVIS ---
Intake Vital Signs 02/07/24 09:05 Height 5 ft 5 in Weight 209 lb BMI 34.8 BP 112/72 Blood Pressure Location Rt brachial Position Sitting Pulse 79 Pulse Source Doppler Pulse Oximetry (%) 97 Oxygen Delivery Method Room Air Intake Visit Reasons: Asthma Catalogue Librarian Required: Yes Catalogue Librarian Name: Georgette Brian Lugo Allergies shrimp [SHRIMP] Allergy (Unknown, Verified 02/07/24 09:09) UNKNOWN HPI Asthma HPI Details 53-year-old lady, nonsmoker, but with significant exposure to secondhand smoke for over 20 years, followed for mild LEAH and asthma.? Patient has been using her CPAP with reasonable control of her underlying sleep apnea.? Her asthma symptoms a baseline controlled on regimen of Breo and albuterol MDI.? She does complain of rhinitis symptoms. [facility] Medical History Bilateral knee pain Chronic pain Essential hypertension Family history of coronary artery disease Fibromyalgia Other and unspecified hyperlipidemia Surgical History H/O section H/O lateral meniscus repair of left knee History of cholecystectomy History of hysterectomy Family History Father History of open heart surgery Brother Hypertension Mother Colon cancer Social History Household Members Other:: son Housing: Apartment Alcohol intake: never Patient Tobacco Use Status: Never used Tobacco Current occupational status: disabled Current occupation: Right Handed Review of Systems Const Denies daytime sleepiness, Denies excessive sweating, Denies fatigue, Denies fever(s), Denies lethargy, Denies malaise, Denies night sweats, Denies snoring and Denies weight loss Eyes Denies blurry vision and Denies itchy eyes ENT Reports nasal congestion, Reports post nasal drip, Denies sinus pain, Denies sinus pressure and Denies other ( Thrush) Card Denies chest pain, Denies pedal edema, Denies dyspnea, Denies orthopnea and Denies paroxysmal nocturnal dyspnea Resp Denies cough, Denies hemoptysis, Denies excessive phlegm production, Denies dyspnea, Denies snoring and Denies wheezing GI Denies abdominal pain and Denies heartburn Musc Denies myalgias, Denies arthralgias and Denies joint swelling Skin/Breast Denies rash Neuro Denies memory loss and Denies seizure-like activity Psych Denies abnormal sleep pattern, Denies anxiety and Denies memory loss Endo Denies excessive sweating, Denies fatigue and Denies heat intolerance Bryant/Lymph Denies easy bruising Aller/Immun Denies itchy eyes, Denies seasonal rhinorrhea and Denies wheezing Physical Exam Vital Signs: Last Vital Signs Pulse 79 02/07/24 09:05 BP 112/72 02/07/24 09:05 Pulse Ox 97 02/07/24 09:05 Oxygen Delivery Method Room Air 02/07/24 09:05 BMI result Body Mass Index 34.8 Const General: no acute distress and alert Nutritional Appearance: not obese Orientation/consciousness: Other orientation findings ( oriented) HEENT Head: Yes atraumatic Eyes General: appearance normal, both eyes and all related structures Sclerae: sclerae normal EOM: EOMs intact bilaterally Neck Neck: Yes supple Lymphatic: no lymphadenopathy noted Resp Effort & Inspection: normal respiratory effort and no use of accessory muscles Auscultation: clear to auscultation bilaterally Cardio Rate: regular rate Rhythm: regular rhythm Heart sounds: no gallops, no murmurs and no rubs Skin General skin exam: other ( warm) Extrem General: No clubbing, No cyanosis and No edema Assessment & Plan Assessment & Plan (1) Asthma: Code(s): J45.909 - Unspecified asthma, uncomplicated Plan: Well controlled on Breo and albuterol MDI. Continue current regimen. (2) LEAH (obstructive sleep apnea): Code(s): G47.33 - Obstructive sleep apnea (adult) (pediatric) Plan: Well controlled on CPAP therapy. Continue CPAP therapy. (3) Rhinitis: Code(s): J31.0 - Chronic rhinitis Plan: Now with clear postnasal drip. Will try on empiric nasal ipratropium. Medications: New ipratropium bromide administer into each nostril 2 sprays intranasal TID-QID 30 days PRN 15 mL 6RF allergy symptoms Coding Level of Care Code Est Pt Level 4 (75884) Diagnoses Asthma J45.909 LEAH (obstructive sleep apnea) G47.33 Rhinitis J31.0
== END 2024-02-07 09:25 | disposition home or self-care (01) ==
PROVIDERS: PCP General Practice; Visit Provider Internal Medicine Pulmonary Disease
DX: J45.909 Unspecified asthma, uncomplicated (principal); G47.33 Obstructive sleep apnea (adult) (pediatric); J31.0 Chronic rhinitis
CPT/HCPCS: 99214

== ENCOUNTER → 2024-02-07 09:03 | Outpatient (BNVA) | payer OTHER, SELFPAY | PROVIDERS: PCP General Practice; Visit Provider Internal Medicine Pulmonary Disease | DX: J45.909 Unspecified asthma, uncomplicated (principal); J31.0 Chronic rhinitis; G47.33 Obstructive sleep apnea (adult) (pediatric); Z79.899 Other long term (current) drug therapy; Z99.89 Dependence on other enabling machines and devices | CPT/HCPCS: 99212 ==

== ENCOUNTER 2024-02-12 11:23 | Outpatient (AMB) | payer OTHER, SELFPAY ==
[2024-02-12 11:43] VITALS: BP 118/82; PULSE 72; RESP 17; TEMP 36.5; O2SAT 97; BMI 34.2
--- NOTE | 2024-02-12 11:43 | A.OFFVIS_ITS ---
Intake Vital Signs 02/12/24 11:43 Height 5 ft 5 in Weight 205 lb 11.06 oz BMI 34.2 BP 118/82 Blood Pressure Location Rt brachial Position Sitting Respiration 17 Pulse 72 Pulse Source Pulse Oximeter Temp 97.7 F Temp Source Skin Pulse Oximetry (%) 97 Oxygen Delivery Method Room Air Intake Visit Reasons: fibromyalgia Sumatra Opener Required: Yes Sumatra Opener Name: Van #[id number] Allergies shrimp [SHRIMP] Allergy (Unknown, Verified 02/12/24 11:45) UNKNOWN Medication List - Last Reconciled 02/12/24 by Isabel Millan RN acetaminophen ER (Tylenol 8 Hour) 650 mg PO Q8H albuterol sulfate 90 mcg/actuation (Ventolin HFA) 2 puffs inhalation QID PRN atorvastatin 20 mg PO DAILY baclofen 10 mg PO DAILY buspirone 10 mg PO BID fluoxetine 40 mg PO QAM fluticasone furoate-vilanterol 200-25 mcg/dose (Breo Ellipta) 1 ea inhalation DAILY gabapentin 100 mg PO DAILY ipratropium bromide 2 sprays intranasal TID-QID PRN 30 days lactulose 10 grams (15 mL) PO DAILY PRN leg brace (Knee Support Brace) SWETA-PULL LITE, LT, L lisinopril 5 mg PO DAILY omeprazole 20 mg PO DAILY simethicone (Gas Relief (simethicone)) 80 mg PO Q8H PRN sucralfate 1 g PO BID trazodone 25 mg PO DAILY triamcinolone acetonide 0.1% appl topical HPI HPI Comments History of Present Illness Details Ms. Carty 53yoF returns for follow-up of Fibromyalgia. The patient continues on Gabapentin and Baclofen. She was diagnosed with sleep apnea and asthma since last visit. She uses a CPAP daily. Her knees continue with pain, last injections over 1 year ago. She plans to call the Orthopedic to schedule. Patient reports she has gone to the Podiatry and is being treated for thickened toenails. He gave her an ointment and also clipped them. They are much better per patient ENT: Lost hearing on the side - little GI- had Colonoscopy - polyps; Upcoming Endoscopy June 01 - could not keep food down after COVID infection. Food gets stuck in hernia, has acid reflux, takes Antacid January 2023 Visit Khadijah: 52yoF presents for follow-up of Fibromya lgia. Last seen in January 2022. Patient reports that overall her fibromyalgia is unchanged. She reports increased symptoms during cold weather. She continues to use fluoxetine and buspirone for her depression and baclofen and gabapentin for her pain. She admits to fatigue, depression and increased stress. Follows with psychiatry. She is prescribed trazodone for sleep. She states she is currently recovering from a respiratory illness treated with prednisone and doxycycline. She has completed the doxycycline and continues prednisone taper. She state she is not exercising but plans to walk this spring. She denies any joint pain or swelling today. Follows with ortho for bilateral knee OA and received injections in the past with good effect, she has not needed to go back since her last injection approx 1 year ago. She is also following with pulmonary for asthma. No longer following with cardiology for chest pain. [facility] Medical History Other and unspecified hyperlipidemia Essential hypertension Family history of coronary artery disease Bilateral knee pain Chronic pain Fibromyalgia Surgical History History of cholecystectomy H/O section H/O lateral meniscus repair of left knee History of hysterectomy Family History Father History of open heart surgery Brother Hypertension Mother Colon cancer Social History Household Members Other:: son Housing: Apartment Alcohol intake: never Patient Tobacco Use Status: Never used Tobacco Current occupational status: disabled Current occupation: Right Handed Physical Exam Vital Signs: Last Vital Signs Temp 97.7 F 02/12/24 11:43 Pulse 72 02/12/24 11:43 Resp 17 02/12/24 11:43 BP 118/82 02/12/24 11:43 Pulse Ox 97 02/12/24 11:43 Oxygen Delivery Method Room Air 02/12/24 11:43 BMI result Body Mass Index 34.2 APPEARANCE: Patient in no acute distress, nourished and groomed EYES: no redness, eyelids normal EARS: External ear normal. NOSE/SINUS: Airflow through both nares, no nasal discharge, no bleeding THROAT: Oral mucosa moist, no ulcerations NECK: No thyromegaly or masses, no adenopathy, trachea midline. HEART: Regular rhythm, S1-S2 heard, no murmurs, rubs or gallops. LUNG: Clear to auscultation, respiratory rate regular nonlabored. ABD: Normal bowel sounds, abdomen soft, nontender. EXTREMITIES: No edema, no calf tenderness, normal peripheral pulses. NEURO: Oriented and alert x3. No focal weakness. Gait normal. SKIN: No inflammatory or neoplastic lesions. Normal color and turgor JOINT EXAM:?? Cervical Spine: Full range of motion without pain; no tenderness. Thoracic Spine:? No scoliosis.? No tenderness on palpation. Lumbar Spine: Alignment normal.? Full range of motion without pain, slight tenderness to palpation over the lumbar spine. Hands:? Normal pain-free range of motion without tenderness, swelling, increased warmth or erythema. 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 Wrists:? Normal pain-free range of motion without tenderness, swelling, increased warmth or erythema. Elbows: Normal pain-free range of motion without tenderness, swelling, increased warmth or erythema. Shoulders:?? Full range of motion without pain. No tenderness, weakness, swelling, increased warmth or erythema. Hips: Full range of motion slight tightness reported bilaterally. Hip bursa: No tenderness. Knees: Normal pain-free range of motion without tenderness, swelling, increased warmth or erythema.? There is no effusion or crepitation Ankles:? Normal pain-free range of motion without tenderness, swelling, increased warmth or erythema. Feet:? Normal pain-free range of motion without tenderness, swelling, increased warmth or erythema. Toenails with nail Bangladeshi. Patient appears to have thickened nails on the left foot. Tender points:? Tenderness to digital palpation at the occiput, trapezius, second rib, lateral epicondyle, knees, greater trochanter and gluteal area bilaterally. Results Reviewed Results Reviewed: Laboratory Tests 01/28/24 11:00 WBC 10.1 RBC 4.66 Hgb 12.7 Hct 39.3 Assessment & Plan Assessment & Plan (1) Fibromyalgia: Code(s): M79.7 - Fibromyalgia Plan Patient's fibromyalgia appears stable. The patient will continue her current medications of buspirone, fluoxetine, gabapentin and baclofen.? Encouraged patient to incorporate light activity daily as tolerated. She plans to join the [employer] with her son. Alsp recommended using stress ball to build hand strength. She will follow-up with me in the office in 6 months. 25 minutes minutes spent reviewing history, evaluating patient and documenting. Coding Level of Care Code Est Pt Level 3 (13138) Diagnoses Fibromyalgia M79.7
== END 2024-02-12 12:22 | disposition home or self-care (01) ==
PROVIDERS: PCP General Practice; Visit Provider Nurse Practitioner Family
DX: M79.7 Fibromyalgia (principal)
CPT/HCPCS: 99213

== ENCOUNTER → 2024-02-12 11:25 | Outpatient (BNVA) | payer OTHER, SELFPAY | PROVIDERS: PCP General Practice; Visit Provider Nurse Practitioner Family | DX: M79.7 Fibromyalgia (principal); G47.33 Obstructive sleep apnea (adult) (pediatric); J45.909 Unspecified asthma, uncomplicated; Z99.89 Dependence on other enabling machines and devices; Z79.899 Other long term (current) drug therapy | CPT/HCPCS: 99212 ==

== ENCOUNTER 2024-03-09 13:42 | Emergency (ER) | payer OTHER, SELFPAY ==
--- NOTE | 2024-03-09 | ECG_ITS ---
Test Reason : CP Blood Pressure : / mmHG Vent. Rate : 059 BPM Atrial Rate : 059 BPM P-R Int : 180 ms QRS Dur : 084 ms QT Int : 412 ms P-R-T Axes : 051 020 022 degrees QTc Int : 407 ms Sinus bradycardia Cannot rule out Anterior infarct , age undetermined Abnormal ECG When compared with ECG of 10-MAR-2023 11:45, No significant change was found Referred By: Generic ED Physician Electronically Signed By:MARILYN BARNES
--- NOTE | ~2024-03-09 | XR_ITS ---
EXAMINATION: XR CHEST CLINICAL INFORMATION: Cough. COMPARISON: Chest radiograph dated 03/10/2023. TECHNIQUE: 2 views of the chest were obtained. FINDINGS: The trachea is in normal anatomic position. Heart size is normal. The lungs are clear. There is no pleural effusion or pneumothorax. No acute osseous abnormality. XR/XR chest 2V IMPRESSION: Stable appearance of the heart and lungs. No active disease.
[2024-03-09 14:01] VITALS: BP 117/77; PULSE 64; RESP 18; TEMP 36.8; O2SAT 100; BMI 34.6
--- NOTE | 2024-03-09 14:01 | ED_ITS ---
HPI - General Adult General Chief complaint: Upper Respiratory Symptoms Stated complaint: Chest pain when breathing/Diff breathing Time Seen by Provider: 03/09/24 16:39 Source: patient and RN notes reviewed Mode of arrival: ambulatory Limitations: no limitations History of Present Illness HPI narrative: This is a 54-year-old female, with a history of hypertension, and fibromyalgia, who presents emergency department for evaluation of chest tightness, cough, congestion since last night. Patient reports that over the last several days she has had intermittent body aches, dry cough, nasal congestion, chest tightness and congestion. She denies any chest pain. She denies any fevers, chills, palpitations, abdominal pain, nausea, vomiting or diarrhea. She does endorse urinary frequency, denies any hematuria, urinary urgency or dysuria. Her is sick with similar symptoms. Denies taking any medications at home to treat her current symptoms. No other complaints or concerns at this time. MD complaint: Cough, congestion Onset (ago): day(s) Radiation: non-radiation Severity: moderate Relieving factors: none Exacerbating factors: none Associated symptoms: denies other symptoms Treatments prior to arrival: none Related Data Home Medications ?Medication ?Instructions ?Recorded ?Confirmed atorvastatin 20 mg tablet 20 mg PO DAILY 09/14/20 02/12/24 baclofen 10 mg tablet 10 mg PO DAILY 09/14/20 02/12/24 lisinopril 5 mg tablet 5 mg PO DAILY 09/14/20 02/12/24 omeprazole 20 mg capsule,delayed 20 mg PO DAILY 09/14/20 02/12/24 release trazodone 50 mg tablet 25 mg PO DAILY 09/14/20 02/12/24 acetaminophen 650 mg 650 mg PO Q8H 02/13/22 02/12/24 tablet,extended release (Tylenol 8 Hour) gabapentin 100 mg capsule 100 mg PO DAILY 02/13/22 02/12/24 simethicone 80 mg chewable tablet 80 mg PO Q8H PRN gas 02/01/23 02/12/24 (Gas Relief (simethicone)) fluoxetine 20 mg capsule 40 mg PO QAM 02/13/23 02/12/24 buspirone 5 mg tablet 10 mg PO BID 02/12/24 02/12/24 sucralfate 1 gram tablet 1 g PO BID 02/12/24 02/12/24 triamcinolone acetonide 0.1 % appl topical 02/12/24 02/12/24 topical cream Previous Rx's ?Medication ?Instructions ?Recorded leg brace (Knee Support Brace) #1 ea 09/28/20 lactulose 10 gram/15 mL oral 10 g (15 mL) PO DAILY PRN 02/07/22 solution constipation #237 mL albuterol sulfate 90 mcg/actuation 2 puff inhalation QID PRN for 07/12/23 aerosol inhaler (Ventolin HFA) wheezing #18 grams fluticasone furoate 200 1 ea inhalation DAILY #60 ea 10/07/23 mcg-vilanterol 25 mcg/dose inhalation powder (Breo Ellipta) ipratropium bromide 42 mcg (0.06 2 spray intranasal TID-QID PRN 02/07/24 %) nasal spray allergy symptoms 30 days #15 mL benzonatate 200 mg capsule 200 mg PO TID PRN cough #15 caps 03/09/24 ibuprofen 600 mg tablet 600 mg PO Q6H PRN pain #30 tabs 03/09/24 Allergies Allergy/AdvReac Type Severity Reaction Status Date / Time shrimp [SHRIMP] Allergy Unknown UNKNOWN Verified 03/09/24 14:03 Review of Systems 2 Review of Systems: Yes all other systems are reviewed and are negative Constitutional: Constitutional: Reports as per HPI [facility] Past Medical History Medical History Other and unspecified hyperlipidemia Essential hypertension Family history of coronary artery disease Bilateral knee pain Chronic pain Fibromyalgia Surgical History History of cholecystectomy H/O section H/O lateral meniscus repair of left knee History of hysterectomy Family History Family History Father History of open heart surgery Brother Hypertension Mother Colon cancer Social History Social History Household Members Other:: son Housing: Apartment Alcohol intake: never Patient Tobacco Use Status: Never used Tobacco Advance Directives: No Advance Directives Information Provided: No Current occupational status: disabled Current occupation: Right Handed Physical Exam ED Vital Signs: Vital Signs - 24 hr 03/09/24 14:03/09/24 18:12 Temperature 98.3 F 98.0 F Pulse Rate 64 51 Respiratory Rate 18 16 Blood Pressure 117/77 112/62 Pulse Oximetry 100 98 Oxygen Delivery Method Room Air Room Air BMI result Body Mass Index 34.6 Const General: cooperative, comfortable and no acute distress Orientation/consciousness: patient oriented x3 Limitations: no limitations HENMT Head: Yes normal to inspection, Yes normocephalic and Yes atraumatic Ears: hearing grossly normal bilaterally General nose exam: Normal external nose present Face and sinus: Yes normal facial exam Mouth: Normal oral and palatal mucosa present, oropharynx normal and moist mucous membranes Throat: Yes posterior oropharynx normal Eyes General: appearance normal, both eyes and all related structures Eyelids: Yes eyelids normal Conjunctivae: conjunctivae normal Sclerae: sclerae normal Pupils: Equal, round and reactive pupils present EOM: EOMs intact bilaterally Neck Neck: Yes normal visual inspection, Yes full ROM and Yes no lymphadenopathy Lymphatic: no lymphadenopathy noted Chest Other: Dry cough heard during examination Chest palpation & inspection: normal inspection of the chest Resp Effort & Inspection: normal respiratory effort and able to speak in complete sentences Auscultation: clear to auscultation bilaterally, no crackles, no rales, no rhonchi and no wheezes Cardio Rate: regular rate Rhythm: regular rhythm Heart sounds: S1 normal heart sound present and S2 normal heart sound present GI Inspection: Yes normal to inspection Skin General skin exam: no rashes or lesions noted Trauma: no lacerations or abrasions Wounds: no wounds Neuro General: patient oriented x3 and moves all extremities Cranial nerves: Yes Equal, round and reactive pupils present Extrem General: Yes normal to inspection Right upper extremity: normal to inspection Left upper extremity: normal to inspection Right lower extremity: normal to inspection Left lower extremity: normal to inspection Course Course Course Narrative: RME- 54-year-old female presents for evaluation of cough, back pain, shortness of breath, chest tightness. Denies any fevers. She has been using inhalers with minimal improvement. She had an EKG on arrival. Plan for labs, chest x- ray viral swabs Reevaluation(s) Reevaluation #1: Chest x-ray does not reveal pneumonia, urine returns, noninfected, viral swabs negative. Labs unremarkable. She has no chest pain. Discussed workup with patient, she understands and agrees with plan. Patient stable for discharge. Time: 18:38 Medical Decision Making Medical Decision Making [facility] Narrative: This is a 54-year-old female, with a history of fibromyalgia, LEAH, and hypertension, who presents emergency department with complaints of congestion, dry cough since last night. She also endorsed urinary frequency. Her is sick with similar symptoms. On arrival, vital signs within normal limits. Lungs are clear to auscultation bilaterally, oropharynx is not erythematous, widely patent, TMs unremarkable. Abdomen is soft and nontender. Differential diagnoses include URI, COVID, flu, pneumonia, ACS-unlikely. Plan: Labs, EKG, chest x-ray, UA Differential Diagnosis Differential Diagnoses: The differential diagnosis associated with the presentation includes See above Admission/Observation Consideration of admission/observation: Escalation of care including admission/observation considered Escalation of care including admission/observation considered however given workup today not warranted at this time. Lab Data [facility] Lab Attestation statement: I reviewed the patient's lab results. Slight leukocytosis at 11.4, chemistry within normal limits, alk-phos 145, appears to be similar to previous levels. Urine does not appear to be infected. Negative viral swabs 03/09/24 16:17 03/09/24 16:17 Labs: Lab Results 03/09/24 03/09/24 Range/Units 16:17 18:20 WBC 11.4 H (4.8-10.8) X10*3/uL RBC 4.58 (4.20-5.50) X10*6/uL Hgb 12.3 (12.0-16.0) g/dl Hct 38.5 (37.0-47.0) % MCV 84.1 (80.0-98.0) fL MCH 26.9 L (27.0-33.0) pg MCHC 31.9 (31.0-35.0) g/dl RDW 14.2 (11.0-16.0) % Plt Count 314 (160-400) X10*3/uL MPV 9.9 (9.4-12.3) fL Immature Gran % (Auto) 0.4 (0.0-0.4) % Neut % (Auto) 60.4 (45-73) % Lymph % (Auto) 30.3 (20-40) % Granite % (Auto) 6.7 (2-11) % Eos % (Auto) 1.8 (0-4) % Baso % (Auto) 0.4 (0-2) % Lymph # (Auto) 3.5 (1.2-4.9) X10*3/uL Granite # (Auto) 0.8 (0.1-1.2) X10*3/uL Eos # (Auto) 0.2 (0.0-0.4) X10*3/uL Baso # (Auto) 0.0 (0.0-0.2) X10*3/uL Abs Immat Gran (auto) 0.04 H (0.00-0.03) X10*3/uL Absolute Neuts (auto) 6.9 (2.0-8.3) x10*3/uL Absolute Nucleated RBC 0.000 (0.0-0.012) X10*3/uL Nucleated RBC % (auto) 0.0 (0.0-0.2) /100WBC PT 12.0 (11.1-13.3) SEC INR 1.0 (0.9-1.1) Sodium 140 (135-145) mmol/L Potassium 3.5 (3.3-5.1) mmol/L Chloride 107 (96-108) mmol/L Carbon Dioxide 23 (22-29) mmol/L Anion Gap 14 (12-20) BUN 13 (9-16) mg/dL Creatinine 0.70 (0.5-1.4) mg/dL Estim Creat Clear Calc 101.8 Estimated GFR > 60 Random Glucose 115 (60-115) mg/dL Calcium 9.3 D (8.4-10.2) mg/dL Total Bilirubin 0.3 (0.0-1.0) mg/dL AST 16 (5-31) U/L ALT 21 (0-31) U/L Alkaline Phosphatase 145 H (39-117) U/L Troponin I High Sens < 2.7 (<3.5-17.0) ng/L Total Protein 7.2 (6.5-8.0) g/dL Albumin 4.2 (3.5-5.0) g/dL Lipase 20 (8-78) U/L Urine Color Yellow Urine Appearance Clear Urine pH 7.0 (5.0-9.0) Ur Specific [place] <= 1.005 (1.005-1.025) Urine Protein Negative (Neg-Trace) mg/dL Urine Glucose (UA) Negative (Negative) mg/dL Urine Ketones Negative (Negative) mg/dL Urine Blood Negative (Negative) Urine Nitrite Negative (Negative) Ur Leukocyte Esterase Negative (Negative) Influenza Type A (PCR) NEGATIVE (Negative) Influenza Type B (PCR) NEGATIVE (Negative) RSV RNA Qual (PCR) NEGATIVE (Negative) SARS-CoV-2 RNA (RT-PCR) NEGATIVE (Negative) Independent Interpretation I performed an independent interpretation of an: EKG (EKG sinus bradycardic, [place] interval 180, QT/QTC 412/407, no ST elevation or depression.) Radiology Impression Discussion of test interpretation with radiology: I have reviewed the radiologist's reading. Radiologist Impression: EXAMINATION: XR CHEST CLINICAL INFORMATION: Cough. COMPARISON: Chest radiograph dated 03/10/2023. TECHNIQUE: 2 views of the chest were obtained. FINDINGS: The trachea is in normal anatomic position. Heart size is normal. The lungs are clear. There is no pleural effusion or pneumothorax. No acute osseous abnormality. XR/XR chest 2V IMPRESSION: Stable appearance of the heart and lungs. No active disease. Dictated By: Boyd Miller Jr, DO Independent Historian Clinical information obtained from an independent historian. History obtained from or confirmed by: Spouse Discharge Plan Discharge Clinical Impression: Acute upper respiratory infection Patient Disposition: Home, Self-Care Instructions: Upper Respiratory Infection (ED) Additional Instructions: Your seen in the emergency department due to cough, congestion. Your symptoms are likely due to a upper respiratory infection. Please drink plenty of fluids get plenty of rest. Your chest x-ray does not show a pneumonia, your urine is not infected, your blood work was reassuring. Alternate between ibuprofen and Tylenol as needed for symptoms. Take prescribed cough medicine as prescribed. If any new or worsening symptoms occur including but not limited to chest pain, shortness of breath, abdominal pain, nausea, vomiting or diarrhea, please return for re-evaluation. Prescriptions: New benzonatate 200 mg capsule 200 mg PO TID PRN (Reason: cough) Qty: 15 0RF ibuprofen 600 mg tablet 600 mg PO Q6H PRN (Reason: pain) Qty: 30 0RF No Action (DME) Knee Support Brace Misc See Rx Instructions .ROUTE .MEDSUPPLY Qty: 1 0RF Rx Instructions: SWETA-PULL LITE, LT, L albuterol sulfate [Ventolin HFA] 90 mcg/actuation HFA aerosol inhaler 2 puff inhalation QID PRN (Reason: for wheezing) Qty: 18 6RF Breo Ellipta 200-25 mcg/dose blister with device 1 ea inhalation DAILY Qty: 60 6RF lactulose 10 gram/15 mL solution 10 g PO DAILY PRN (Reason: constipation) Qty: 237 0RF omeprazole 20 mg capsule,delayed release(DR/EC) 20 mg PO DAILY trazodone 50 mg tablet 25 mg PO DAILY baclofen 10 mg tablet 10 mg PO DAILY lisinopril 5 mg tablet 5 mg PO DAILY atorvastatin 20 mg tablet 20 mg PO DAILY buspirone 5 mg tablet 10 mg PO BID gabapentin 100 mg capsule 100 mg PO DAILY acetaminophen [Tylenol 8 Hour] 650 mg tablet extended release 650 mg PO Q8H fluoxetine 20 mg capsule 40 mg PO QAM simethicone [Gas Relief (simethicone)] 80 mg tablet,chewable 80 mg PO Q8H PRN (Reason: gas) triamcinolone acetonide 0.1 % cream topical sucralfate 1 gram tablet 1 g PO BID ipratropium bromide 42 mcg (0.06 %) spray,non-aerosol 2 spray intranasal TID-QID PRN (Reason: allergy symptoms) 30 Days Qty: 15 6RF Rx Instructions: administer into each nostril Print Language: Cambodian
--- OUTSIDE RECORDS SUMMARY | 2024-03-09 15:32 | XMS_ITS | Continuity of Care Document ---
Author Organization [facility] Address [address] [place] [address]- Care Team Providers Care Manufacturing Leader Name Role Phone Shubham TANG, Brooklyn Stout Primary Care Physician Encounter [facility] [place] Date(s): 12/25/23 - 01/24/24 [facility] [address] [place] [address]- [place] Allergies, Adverse Reactions, Alerts Substance Reaction [...] 15:27:00 EDT Start Date: 07/12/20 Status: Ordered Carafate 1 gm oral tablet 1 Gm, 1, tablet, By Mouth, 2 times a day, dissolve in a capful of water and swallow, # 120 tablet, Refills 0, Tot. Refills 0, Maintenance, 12/27/23 8:32:00 EST, Route to Pharmacy Electronically, [facility], Partial fill upon patien... Start Date: 12/27/23 Status: Ordered Claritin-D By Mouth, Every 12 [...] Team Personnel Name: Brooklyn Jalloh MD Position: [facility] Physician - Primary Care Member Role: PCP Address: Address: [address] [place] [address], [address]st [place] [address]- Care Team Related Persons Name: RHONA HANNA Name: MARK CHRISTINA Address: home [address] [place] [address] Name: MARK LIGHT Address: home [address] [place] [address] Name: RHONA HUNTER Address: home [address] [place] [address]
--- OUTSIDE RECORDS SUMMARY | 2024-03-09 15:33 | XMS_ITS | Continuity of Care Document ---
Author Organization [facility] Address [address] [place] [address]- Care Team Providers Care Lead Material Handler Name Role Phone Brooklyn Jalloh MD Primary Care Physician Encounter [facility] – [place] Date(s): 01/08/24 - 02/09/[address] [address]- Attending Physician: Brooks Aldrich MD Admitting Physician: [...] 12/27/23 8:32:00 EST, Route to Pharmacy Electronically, [facility], Partial fill upon patien... Start [...] Team Personnel Name: Brooklyn Jalloh MD Position: [facility] Physician - Primary Care Member Role: PCP Address: Address: [address] [place] [address], [address] Name: Brooks Aldrich MD Position: [facility] Physician - Gastroenterology Med Service: Gastroenterology Member Role: Referring Physician Address: Address: [address] [facility], [address] Care Team Related Persons Name: RHONA HANNA Name: MARK CHRISTINA Address: home [address] [place] [address] Name: MARK LIGHT Address: home [address] [place] [address] Name: RHONA HUNTER Address: home [address] [address]
--- OUTSIDE RECORDS SUMMARY | 2024-03-09 15:33 | XMS_ITS | Continuity of Care Document ---
Author Organization [facility] Address [address] [place] [address]- Care Team Providers Care Software Development Advisor Name Role Phone Shubham TANG, Brooklyn Stout Primary Care Physician [place] [facility] [place] 02/06/24 [facility] [address] [place] [address]- [place] Allergies, Adverse Reactions, Alerts Substance Reaction [...] 12/27/23 8:32:00 EST, Route to Pharmacy Electronically, [facility], Partial fill upon patien... Start [...] Team Personnel Name: Brooklyn Jalloh MD Position: [facility] Physician - Primary Care Member Role: PCP Address: Address: [address] [place] [address], 1[address] [place] [address]- Care Team Related Persons Name: RHONA HANNA Name: MARK CHRISTINA Address: home [address] [place] [address] Name: MARK LIGHT Address: home [address] [place] [address] Name: RHONA HUNTER Address: home [address] [place] [address]
[2024-03-09 16:22] LABS: MANUAL DIFF FLAG NO
[2024-03-09 16:24] LABS: Basophils Percent Auto 0.4 % (0-2); Eosinophils Absolute Auto 0.2 X10*3/uL (0.0-0.4); Eosinophils Percent Auto 1.8 % (0-4); Hematocrit 38.5 % (37.0-47.0); Hemoglobin 12.3 g/dl (12.0-16.0); Imm Gran Abs Auto 0.04 X10*3/uL (0.00-0.03); Imm Gran Pct Auto 0.4 % (0.0-0.4); Lymphocytes Absolute Auto 3.5 X10*3/uL (1.2-4.9); Lymphocytes Percent Auto 30.3 % (20-40); Mean Corpuscular HGB Conc 31.9 g/dl (31.0-35.0); Mean Corpuscular Hemoglobin 26.9 pg (27.0-33.0); Mean Corpuscular Volume 84.1 fL (80.0-98.0); Mean Platelet Volume 9.9 fL (9.4-12.3); Monocytes Absolute Auto 0.8 X10*3/uL (0.1-1.2); Monocytes Percent Auto 6.7 % (2-11); Neutrophils Absolute Auto 6.9 x10*3/uL (2.0-8.3); Neutrophils Percent Auto 60.4 % (45-73); Platelet Count 314 X10*3/uL (160-400); Red Blood Count 4.58 X10*6/uL (4.20-5.50); Red Cell Distribution Width 14.2 % (11.0-16.0); White Blood Count 11.4 X10*3/uL (4.8-10.8)
[2024-03-09 16:53] LABS: Alanine Aminotransferase 21 U/L (0-31); Albumin Level 4.2 g/dL (3.5-5.0); Alkaline Phosphatase 145 U/L (39-117); Anion Gap 14 (12-20); Aspartate Amino Transferase 16 U/L (5-31); Bilirubin Total 0.3 mg/dL (0.0-1.0); Blood Urea Nitrogen 13 mg/dL (9-16); Calcium 9.3 mg/dL (8.4-10.2); Carbon Dioxide 23 mmol/L (22-29); Chloride 107 mmol/L (96-108); Creatinine Clr Calc Pharmacy 101.8; Estimated Glomerular Filt Rate > 60; Glucose Random 115 mg/dL (60-115); Lipase 20 U/L (8-78); Potassium 3.5 mmol/L (3.3-5.1); Sodium 140 mmol/L (135-145); Total Protein 7.2 g/dL (6.5-8.0)
[2024-03-09 16:59] LABS: Troponin-I High Sensitivity < 2.7 ng/L (<3.5-17.0)
[2024-03-09 17:01] LABS: Influenza A PCR NEGATIVE (Negative); Influenza B PCR NEGATIVE (Negative); Resp Syncy Virus RNA Qual PCR NEGATIVE (Negative); SARS COV2 PCR INHOUSE NEGATIVE (Negative)
[2024-03-09 18:12] VITALS: BP 112/62; PULSE 51; RESP 16; TEMP 36.7; O2SAT 98
[2024-03-09 18:25] LABS: Appearance Urine Clear; Color Urine Yellow; Glucose Urine UA Negative (Negative); Leukocyte Esterase Urine Negative (Negative); Nitrite Urine Negative (Negative); Specific Gravity - Urine <= 1.005 (1.005-1.025); Urine Blood Negative (Negative); Urine Ketones Negative (Negative); Urine Protein Negative (Neg-Trace)
[2024-03-09 19:09] VITALS: BP 112/62; PULSE 61; RESP 16; TEMP 36.6; O2SAT 98
== END 2024-03-09 19:10 | disposition home or self-care (01) ==
PROVIDERS: Physician Assistant; Physician Assistant Medical; Emergency Provider Emergency Medicine; PCP General Practice
DX: J06.9 Acute upper respiratory infection, unspecified (principal); R35.0 Frequency of micturition; I10 Essential (primary) hypertension
CPT/HCPCS: 0241U; 71046; 80053; 81003; 83690; 84484; 85025; 85610; 93005; 99283; 99284

== ENCOUNTER → 2024-03-09 13:50 | Outpatient (BNV) | payer OTHER, SELFPAY | PROVIDERS: Emergency Provider Emergency Medicine; PCP General Practice; Visit Provider Internal Medicine | DX: R00.1 Bradycardia, unspecified (principal) | CPT/HCPCS: 93010 ==

== ENCOUNTER 2024-03-18 07:32 | Outpatient (REF) | payer OTHER, SELFPAY ==
--- NOTE | ~2024-03-18 | XR_ITS ---
EXAMINATION: XR BILATERAL KNEES CLINICAL INFORMATION: Pain in bilateral knees. COMPARISON: None available. TECHNIQUE: 3 views of each knee. FINDINGS: LEFT KNEE: Fitaqgtc-na-qnbzdk narrowing of the medial compartment. No significant joint effusion. Tiny tricompartmental osteophytes. RIGHT KNEE: Vlytbitu-ed-itpmic narrowing of the medial compartment. No significant joint effusion. Tiny tricompartmental osteophytes. XR/XR knee LT 3V IMPRESSION: Viiymehb-gr-vgesmb narrowing of the medial compartments of bilateral knees.
--- NOTE | ~2024-03-18 | XR_ITS ---
EXAMINATION: XR BILATERAL KNEES CLINICAL INFORMATION: Pain in bilateral knees. COMPARISON: None available. TECHNIQUE: 3 views of each knee. FINDINGS: LEFT KNEE: Tdvovzgh-nc-fgyeog narrowing of the medial compartment. No significant joint effusion. Tiny tricompartmental osteophytes. RIGHT KNEE: Iilgmvrt-sm-iiovyt narrowing of the medial compartment. No significant joint effusion. Tiny tricompartmental osteophytes. XR/XR knee RT 3V IMPRESSION: Dhczpwkn-zf-mhlsvz narrowing of the medial compartments of bilateral knees.
== END 2024-03-18 07:33 | disposition home or self-care (01) ==
LOC: HO.HOSX 07:32
PROVIDERS: Visit Provider Orthopaedic Surgery
DX: M17.0 Bilateral primary osteoarthritis of knee (principal)
CPT/HCPCS: 73562; 99202

== ENCOUNTER 2024-03-18 12:51 | Outpatient (AMB) | payer OTHER, SELFPAY ==
[2024-03-18 12:52] VITALS: BMI 34.4
--- NOTE | 2024-03-18 12:52 | MHC.OFFVIS ---
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 She describes her pains as sharp in nature. Her pains have gotten worse over the last few years in spite of continued non operative treatments. She has had cortisone injections in the past which gave her minimal relief. She also states that the cortisone caused swelling in her entire body. She has tried Tylenol and anti-inflammatory medicines which gave her only mild relief. She denies any locking or giving way. She has done physical therapy which aggravated her pain. She wishes to hold off on surgery for as long as possible. Allergies shrimp [SHRIMP] Allergy (Unknown, Verified 03/18/24 13:17) UNKNOWN Medication List - Last Reconciled 03/18/24 by Ramesh Alba MD acetaminophen ER (Tylenol 8 Hour) 650 mg PO Q8H albuterol sulfate 90 mcg/actuation (Ventolin HFA) 2 puffs inhalation QID PRN atorvastatin 20 mg PO DAILY baclofen 10 mg PO DAILY benzonatate 200 mg PO TID PRN buspirone 10 mg PO BID fluoxetine 40 mg PO QAM fluticasone furoate-vilanterol 200-25 mcg/dose (Breo Ellipta) 1 ea inhalation DAILY gabapentin 100 mg PO DAILY ibuprofen 600 mg PO Q6H PRN ipratropium bromide 2 sprays intranasal TID-QID PRN 30 days lactulose 10 grams (15 mL) PO DAILY PRN leg brace (Knee Support Brace) SWETA-PULL LITE, LT, L lisinopril 5 mg PO DAILY omeprazole 20 mg PO DAILY simethicone (Gas Relief (simethicone)) 80 mg PO Q8H PRN sucralfate 1 g PO BID trazodone 25 mg PO DAILY triamcinolone acetonide 0.1% appl topical PFSH Medical History Other and unspecified hyperlipidemia Essential hypertension Family history of coronary artery disease Bilateral knee pain Chronic pain Fibromyalgia Surgical History History of cholecystectomy H/O section H/O lateral meniscus repair of left knee History of hysterectomy Family History Father History of open heart surgery Brother Hypertension Mother Colon cancer Social History Household Members Other:: son Housing: Apartment Alcohol intake: never Patient Tobacco Use Status: Never used Tobacco Current occupational status: disabled Current occupation: Right Handed Physical Exam Vital Signs: BMI result Body Mass Index 34.4 Const Other: Well-nourished well-developed very friendly female awake alert and oriented x3 in no acute distress Extrem Other: Bilateral lower extremity examination shows good capillary refill, no skin lesions noted, normal sensation light touch Bilateral knee examination shows minimal effusions, palpable crepitus with range of motion, pain with range of motion, no instability Results Reviewed Results Reviewed: X-rays of the patient's bilateral knee show moderate joint space narrowing most significant in the medial compartments, subchondral sclerosis, no acute bony abnormalities Assessment & Plan Assessment & Plan (1) Arthritis of left knee: Code(s): M17.12 - Unilateral primary osteoarthritis, left knee Category: Medical (2) Arthritis of right knee: Code(s): M17.11 - Unilateral primary osteoarthritis, right knee Category: Medical Plan Ms. Jose Barroso presents with bilateral knee pains due to degenerative joint disease. I had a lengthy discussion with the patient regarding the treatment options. She wishes to hold off on surgery for as long as possible. I agree with this plan. The patient states that she has not able to tolerate cortisone injections at this point. Thus, I will see whether not the patient's insurance company will cover a viscosupplementation injection for both of her knees. I will see her back once the injections are available. Feel free to call me at any time should questions regarding her orthopedic management arise. Thank you very much for asking me to see this very friendly patient. I spent 22 minutes in reviewing the patient's records and imaging studies, seeing the patient and documenting in the medical record. Orders: Orders XR knee LT 3V Today M25.562 - Pain in left knee XR knee RT 3V Today M25.561 - Pain in right knee Coding Level of Care Code New Pt Level 2 (38761) Diagnoses Arthritis of left knee M17.12 Arthritis of right knee M17.11
== END 2024-03-18 13:32 | disposition home or self-care (01) ==
PROVIDERS: PCP General Practice; Visit Provider Orthopaedic Surgery
DX: M17.0 Bilateral primary osteoarthritis of knee (principal)
CPT/HCPCS: 99203

== ENCOUNTER 2024-04-16 10:39 | Outpatient (AMB) | payer OTHER, SELFPAY ==
--- NOTE | 2024-04-16 10:47 | A.OFFVIS_ITS ---
Vital Signs 04/16/24 10:48 Height 5 ft 5 in Intake Visit Reasons: Bilateral Knee Durolane Injections Intake Note: Machelle is a 54 year old female who presents with complaints of progressively worsening bilateral knee pains. The patient describes her pains as sharp in nature. Her pains have gotten worse over the last year in spite of continued non operative treatments. She has had cortisone injections in the past which gave her minimal relief. She has also tried physical therapy exercises which aggravated her pain. She has tried Tylenol and anti-inflammatory medicines which gave her minimal relief. She wishes hold off on surgery for as long as possible. 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: [id number] Allergies shrimp [SHRIMP] Allergy (Unknown, Verified 04/16/24 10:48) UNKNOWN Medication List - Last Reconciled 04/17/24 by Ramesh Alba MD acetaminophen ER (Tylenol 8 Hour) 650 mg PO Q8H albuterol sulfate 90 mcg/actuation (Ventolin HFA) 2 puffs inhalation QID PRN atorvastatin 20 mg PO DAILY baclofen 10 mg PO DAILY benzonatate 200 mg PO TID PRN buspirone 10 mg PO BID fluoxetine 40 mg PO QAM fluticasone furoate-vilanterol 200-25 mcg/dose (Breo Ellipta) 1 ea inhalation DAILY gabapentin 100 mg PO DAILY ibuprofen 600 mg PO Q6H PRN ipratropium bromide 2 sprays intranasal TID-QID PRN 30 days lactulose 10 grams (15 mL) PO DAILY PRN leg brace (Knee Support Brace) SWETA-PULL LITE, LT, L lisinopril 5 mg PO DAILY omeprazole 20 mg PO DAILY simethicone (Gas Relief (simethicone)) 80 mg PO Q8H PRN sucralfate 1 g PO BID trazodone 25 mg PO DAILY triamcinolone acetonide 0.1% appl topical PFSH Medical History Other and unspecified hyperlipidemia Essential hypertension Family history of coronary artery disease Bilateral knee pain Chronic pain Fibromyalgia Surgical History History of cholecystectomy H/O section H/O lateral meniscus repair of left knee History of hysterectomy Family History Father History of open heart surgery Brother Hypertension Mother Colon cancer Social History Household Members Other:: son Housing: Apartment Alcohol intake: never Patient Tobacco Use Status: Never used Tobacco Current occupational status: disabled Current occupation: Right Handed Physical Exam Const Other: Well-nourished well-developed very friendly female awake alert and oriented x3 in no acute distress Extrem Other: Bilateral lower extremity examination shows good capillary refill, no skin lesions noted, normal sensation light touch Bilateral knee examination shows minimal effusions, palpable crepitus with range of motion, pain with range of motion, no instability Office Procedures Joint Injection/Drain Joint Injection/Drain Primary Site: right knee Prep: site was prepped using aseptic technique Injected: 60 mg of (Durolane viscosupplementation) Procedure: The patient tolerated the procedure well Coding 81797 - Large joint Procedure code (CPT) selection complete Joint Injection/Drain Joint Injection/Drain Primary Site: left knee Prep: site was prepped using aseptic technique Injected: 60 mg of (Durolane viscosupplementation) and 1% plain lidocaine Procedure: The patient tolerated the procedure well Coding 46911 - Large joint Procedure code (CPT) selection complete Results Reviewed Results Reviewed: X-rays of the patient's bilateral knee show joint space narrowing, subchondral sclerosis, no acute bony abnormalities Assessment & Plan Assessment & Plan (1) Arthritis of left knee: Code(s): M17.12 - Unilateral primary osteoarthritis, left knee Category: Medical (2) Arthritis of right knee: Code(s): M17.11 - Unilateral primary osteoarthritis, right knee Category: Medical Plan Ms. Jose Barroso presents with bilateral knee pains due to degenerative joint disease. I had a lengthy discussion with the patient regarding the treatment options. The patient wishes to hold off on surgery for as long as possible. I agree with this plan. She has not gotten good relief from cortisone injections in the past. Thus, the risks and benefits of bilateral knee Durolane viscosupplementation injections were discussed at length with the patient. The patient wished to proceed. She tolerated the injections well. She will continue with her activity modifications. She will follow up with me on an as- needed basis should her symptoms not plateau at an unacceptable level over the next few months. Feel free to call me at any time should questions regarding her orthopedic management arise. I spent 21 minutes in reviewing the patient's records and imaging studies, seeing the patient and documenting in the medical record. Orders: Orders AMB Joint Injection/Aspiration 04/16/24 M17.12 - Unilateral primary osteoarthritis, left knee AMB Joint Injection/Aspiration 04/16/24 M17.11 - Unilateral primary osteoarthritis, right knee Coding Level of Care Code Est Pt Level 3 (70886) Diagnoses Arthritis of left knee M17.12 Arthritis of right knee M17.11 CPT Codes Coding - 71493 Large joint: 41011 - Large joint ([id number]) Coding - 76882 Large joint: 88848 - Large joint ([id number])
== END 2024-04-16 11:14 | disposition home or self-care (01) ==
PROVIDERS: PCP General Practice; Visit Provider Orthopaedic Surgery
DX: M17.0 Bilateral primary osteoarthritis of knee (principal)
CPT/HCPCS: 20610; 99213

== ENCOUNTER → 2024-04-16 10:39 | Outpatient (BNVA) | payer OTHER, SELFPAY | PROVIDERS: PCP General Practice; Visit Provider Orthopaedic Surgery | DX: M17.0 Bilateral primary osteoarthritis of knee (principal) | CPT/HCPCS: 20610; 99212; J7318 ==

== ENCOUNTER 2024-07-09 22:15 | Emergency (ER) | payer OTHER, SELFPAY ==
[2024-07-09 22:20] VITALS: BP 138/71; PULSE 55; RESP 16; TEMP 36.1; O2SAT 97; BMI 34.1
--- NOTE | 2024-07-09 22:27 | ECG_ITS ---
Test Reason : BP HIGH Blood Pressure : / mmHG Vent. Rate : 053 BPM Atrial Rate : 053 BPM P-R Int : 176 ms QRS Dur : 086 ms QT Int : 452 ms P-R-T Axes : 031 011 026 degrees QTc Int : 424 ms Sinus bradycardia Otherwise normal ECG When compared with ECG of 09-MAR-2024 13:50, No significant change was found Referred By: Generic ED Physician Electronically Signed By:ADELAIDA KAY
[2024-07-09 22:48] LABS: MANUAL DIFF FLAG NO
[2024-07-09 22:49] LABS: Basophils Percent Auto 0.2 % (0-2); Eosinophils Absolute Auto 0.1 X10*3/uL (0.0-0.4); Eosinophils Percent Auto 0.8 % (0-4); Hemoglobin 12.5 g/dl (12.0-16.0); Imm Gran Abs Auto 0.04 X10*3/uL (0.00-0.03); Imm Gran Pct Auto 0.4 % (0.0-0.4); Lymphocytes Absolute Auto 2.7 X10*3/uL (1.2-4.9); Lymphocytes Percent Auto 26.9 % (20-40); Mean Corpuscular HGB Conc 32.9 g/dl (31.0-35.0); Mean Corpuscular Hemoglobin 27.4 pg (27.0-33.0); Mean Corpuscular Volume 83.3 fL (80.0-98.0); Mean Platelet Volume 9.9 fL (9.4-12.3); Monocytes Absolute Auto 0.8 X10*3/uL (0.1-1.2); Monocytes Percent Auto 8.2 % (2-11); Neutrophils Absolute Auto 6.4 x10*3/uL (2.0-8.3); Neutrophils Percent Auto 63.5 % (45-73); Platelet Count 323 X10*3/uL (160-400); Red Blood Count 4.56 X10*6/uL (4.20-5.50); Red Cell Distribution Width 14.8 % (11.0-16.0); White Blood Count 10.1 X10*3/uL (4.8-10.8)
[2024-07-09 23:05] LABS: Alanine Aminotransferase 42 U/L (0-31); Albumin Level 4.2 g/dL (3.5-5.0); Alkaline Phosphatase 145 U/L (39-117); Anion Gap 12 (12-20); Aspartate Amino Transferase 22 U/L (5-31); Bilirubin Direct 0.1 mg/dL (0.0-0.5); Bilirubin Total 0.3 mg/dL (0.0-1.0); Blood Urea Nitrogen 12 mg/dL (9-16); Calcium 9.3 mg/dL (8.4-10.2); Carbon Dioxide 25 mmol/L (22-29); Chloride 109 mmol/L (96-108); Creatinine Clr Calc Pharmacy 84.2; Estimated Glomerular Filt Rate > 60; Glucose Random 149 mg/dL (60-115); Lipase 21 U/L (8-78); Potassium 3.6 mmol/L (3.3-5.1); Sodium 142 mmol/L (135-145); Total Protein 7.3 g/dL (6.5-8.0)
--- NOTE | 2024-07-09 23:14 | ED.GENADULT ---
HPI - General Adult General Chief complaint: Dizziness Stated complaint: vomiting/low blood pressure Time Seen by Provider: 07/09/24 22:51 Source: patient Mode of arrival: ambulatory Limitations: no limitations History of Present Illness ED Provider: Kenisha YUSUF HPI narrative: 54-year-old female recently diagnosed with COVID yesterday, and started on Paxlovid yesterday presents with upper abdominal pain, sore throat, fatigue, malaise, myalgias. Also reporting nausea, vomiting and dizziness status post starting Paxlovid. Patient denies sick contacts. She was also concerned that her heart rate was low at 47. Denies chest pain, shortness breath, blood in stool vomit, headache, vision changes, weakness. NIH stroke scale 0 Related Data Home Medications ?Medication ?Instructions ?Recorded ?Confirmed atorvastatin 20 mg tablet 20 mg PO DAILY 09/14/20 04/17/24 baclofen 10 mg tablet 10 mg PO DAILY 09/14/20 04/17/24 lisinopril 5 mg tablet 5 mg PO DAILY 09/14/20 04/17/24 omeprazole 20 mg capsule,delayed 20 mg PO DAILY 09/14/20 04/17/24 release trazodone 50 mg tablet 25 mg PO DAILY 09/14/20 04/17/24 acetaminophen 650 mg 650 mg PO Q8H 02/13/22 04/17/24 tablet,extended release (Tylenol 8 Hour) gabapentin 100 mg capsule 100 mg PO DAILY 02/13/22 04/17/24 simethicone 80 mg chewable tablet 80 mg PO Q8H PRN gas 02/01/23 04/17/24 (Gas Relief (simethicone)) fluoxetine 20 mg capsule 40 mg PO QAM 02/13/23 04/17/24 buspirone 5 mg tablet 10 mg PO BID 02/12/24 04/17/24 sucralfate 1 gram tablet 1 g PO BID 02/12/24 04/17/24 triamcinolone acetonide 0.1 % appl topical 02/12/24 04/17/24 topical cream Previous Rx's ?Medication ?Instructions ?Recorded leg brace (Knee Support Brace) #1 ea 09/28/20 lactulose 10 gram/15 mL oral 10 g (15 mL) PO DAILY PRN 02/07/22 solution constipation #237 mL ipratropium bromide 42 mcg (0.06 2 spray intranasal TID-QID PRN 02/07/24 %) nasal spray allergy symptoms 30 days #15 mL benzonatate 200 mg capsule 200 mg PO TID PRN cough #15 caps 03/09/24 ibuprofen 600 mg tablet 600 mg PO Q6H PRN pain #30 tabs 03/09/24 albuterol sulfate 90 mcg/actuation 2 puff inhalation QID PRN for 03/10/24 aerosol inhaler (Ventolin HFA) wheezing #18 grams fluticasone furoate 200 1 ea inhalation DAILY #60 ea 05/25/24 mcg-vilanterol 25 mcg/dose inhalation powder (Breo Ellipta) ondansetron 4 mg disintegrating 4 mg PO Q6H PRN nausea and 07/09/24 tablet vomiting #14 tabs Allergies Allergy/AdvReac Type Severity Reaction Status Date / Time shrimp [SHRIMP] Allergy Unknown UNKNOWN Verified 07/09/24 22:25 Review of Systems Review of Systems: Yes all other systems are reviewed and are negative [facility] Past Medical History Attestation statement: The following information was validated with the patient. Source: old records reviewed and nursing notes reviewed Medical History Other and unspecified hyperlipidemia Essential hypertension Family history of coronary artery disease Bilateral knee pain Chronic pain Fibromyalgia Surgical History History of cholecystectomy H/O section H/O lateral meniscus repair of left knee History of hysterectomy Family History Family History Father History of open heart surgery Brother Hypertension Mother Colon cancer Social History Social History Household Members Other:: son Housing: Apartment Alcohol intake: never Patient Tobacco Use Status: Never used Tobacco Advance Directives: No Advance Directives Information Provided: No Current occupational status: disabled Current occupation: Right Handed Physical Exam ED Vital Signs: Vital Signs - 24 hr 07/09/24 22:20 07/09/24 23:19 07/09/24 23:47 Temperature 96.9 F Pulse Rate 55 42 L 50 Respiratory Rate 16 Blood Pressure 138/71 128/70 109/77 Pulse Oximetry 97 Oxygen Delivery Method Room Air 07/09/24 23:48 Temperature Pulse Rate 55 Respiratory Rate Blood Pressure 116/77 Pulse Oximetry Oxygen Delivery Method BMI result Body Mass Index 34.1 vss Appearance: Alert.? Oriented X3.? No acute distress.? Head: Normocephalic, atraumatic, no step-offs or deformities Eyes: Pupils equal, round and reactive to light.? ENT: Pharynx erythema, no edema uvula midline, very scant white exudate to bilateral tonsillar pillars. Speaking in full sentences controlling secretions well.? Neck: Normal inspection.? Neck supple.? CVS: Normal heart rate and rhythm.? Pulses normal.? Respiratory: No respiratory distress.? Breath sounds normal.? Abdomen: Soft and nontender.? Negative Rovsing, McBurney's, Duarte's. Skin: Skin warm and dry.? Normal skin color.? Normal skin turgor.? Extremities: No lower extremity edema.? No calf ttp. 5/5 strength to bilateral upper and lower extremities Neuro: Oriented X 3.? No motor deficit.? No sensory deficit. CN 2-12 intact Course Reevaluation(s) Reevaluation #1: CBC with no acute findings needing intervention. Chemistry unremarkable. Chronically elevated alk-phos. Mild elevation in ALT likely secondary to viral illness. Flu, COVID, RSV pending. Strep pending. Patient will likely be discharged home. She states that she does not feel like she can take Paxlovid, therefore will tell her to discontinue this medicine. Time: 23:43 Reevaluation #2: Educated patient on diagnosis and treatment plan, answered all question, patient verbalizes understanding. At this time patient will be discharged home, advised to return with new or worsening symptoms. Educated on worrisome signs and symptoms and when to return. At this time I feel comfortable discharge home. Time: 23:45 Reevaluation #3: Patient's orthostatics numerically negative, no symptoms of dizziness or weakness upon standing when she did have a drop in blood pressure. Patient will hydrate with p.o. fluids tolerating fluids by mouth without issues. Swabs are still pending will call her only if they are positive. Time: 23:52 Medical Decision Making Medical Decision Making MDM Narrative: 54-year-old female recently diagnosed with COVID presents with nausea and vomiting status post starting Paxlovid. She reports she was feeling dizzy however not dizzy at this time. Physical exam Pharynx erythema, no edema uvula midline, very scant white exudate to bilateral tonsillar pillars. Speaking in full sentences controlling secretions well.? NIH stroke scale 0. History and physical exam concerning for COVID-19 likely causing symptoms. Other differentials include adverse effect Paxlovid. Will rule out orthostatic hypotension electrolyte abnormalities. No abdominal tenderness unlikely acute abdomen, pancreatitis, cholecystitis, diverticulitis, acute abdomen, appendicitis. White exudates likely from viral pharyngitis will rule out strep pharyngitis although unlikely. Unlikely mononucleosis. No signs of peritonsillar abscess retropharyngeal abscess or epiglottitis. No signs of acute threat to airway. Plan labs, orthostatic vitals. No indication for imaging Differential Diagnosis Differential Diagnoses: The differential diagnosis associated with the presentation includes History and physical exam concerning for COVID-19 likely causing symptoms. Other differentials include adverse effect Paxlovid. Will rule out orthostatic hypotension electrolyte abnormalities. No abdominal tenderness unlikely acute abdomen, pancreatitis, cholecystitis, diverticulitis, acute abdomen, appendicitis. White exudates likely from viral pharyngitis will rule out strep pharyngitis although unlikely. Unlikely mononucleosis. No signs of peritonsillar abscess retropharyngeal abscess or epiglottitis. No signs of acute threat to airway. Admission/Observation Consideration of admission/observation: Escalation of care including admission/observation considered possible Lab Data MDM Lab Attestation statement: I reviewed the patient's lab results. 07/09/24 22:35 07/09/24 22:35 Labs: Lab Results 07/09/24 Range/Units 22:35 WBC 10.1 (4.8-10.8) X10*3/uL RBC 4.56 (4.20-5.50) X10*6/uL Hgb 12.5 (12.0-16.0) g/dl Hct 38.0 (37.0-47.0) % MCV 83.3 (80.0-98.0) fL MCH 27.4 (27.0-33.0) pg MCHC 32.9 (31.0-35.0) g/dl RDW 14.8 (11.0-16.0) % Plt Count 323 (160-400) X10*3/uL MPV 9.9 (9.4-12.3) fL Immature Gran % (Auto) 0.4 (0.0-0.4) % Neut % (Auto) 63.5 (45-73) % Lymph % (Auto) 26.9 (20-40) % Tripp % (Auto) 8.2 (2-11) % Eos % (Auto) 0.8 (0-4) % Baso % (Auto) 0.2 (0-2) % Lymph # (Auto) 2.7 (1.2-4.9) X10*3/uL Tripp # (Auto) 0.8 (0.1-1.2) X10*3/uL Eos # (Auto) 0.1 (0.0-0.4) X10*3/uL Baso # (Auto) 0.0 (0.0-0.2) X10*3/uL Abs Immat Gran (auto) 0.04 H (0.00-0.03) X10*3/uL Absolute Neuts (auto) 6.4 (2.0-8.3) x10*3/uL Absolute Nucleated RBC 0.000 (0.0-0.012) X10*3/uL Nucleated RBC % (auto) 0.0 (0.0-0.2) /100WBC Sodium 142 (135-145) mmol/L Potassium 3.6 (3.3-5.1) mmol/L Chloride 109 H (96-108) mmol/L Carbon Dioxide 25 (22-29) mmol/L Anion Gap 12 (12-20) BUN 12 (9-16) mg/dL Creatinine 0.84 (0.5-1.4) mg/dL Estim Creat Clear Calc 84.2 Estimated GFR > 60 Random Glucose 149 H (60-115) mg/dL Calcium 9.3 (8.4-10.2) mg/dL Total Bilirubin 0.3 (0.0-1.0) mg/dL Direct Bilirubin 0.1 (0.0-0.5) mg/dL AST 22 (5-31) U/L ALT 42 H (0-31) U/L Alkaline Phosphatase 145 H (39-117) U/L Total Protein 7.3 (6.5-8.0) g/dL Albumin 4.2 (3.5-5.0) g/dL Lipase 21 (8-78) U/L Independent Interpretation I performed an independent interpretation of an: EKG (Vent. Rate : 053 BPM Atrial Rate : 053 BPM P-R Int : 176 ms QRS Dur : 086 ms QT Int : 452 ms P-R-T Axes : 031 011 026 degrees QTc Int : 424 ms Sinus bradycardia Otherwise normal ECG When compared with ECG of 09-MAR-2024 13:50, No significant change was found) Interpretation: Patient with bradycardia on EKG however previous vitals from previous visits bradycardia is patient's baseline. Radiology Impression Discussion of test interpretation with radiology: I have reviewed the radiologist's reading. External Record Review External record reviewed: Inpatient record, Office record, Outpatient record, Prior outpatient labs, Prior outpatient radiology, Primary care record and Outside ED record Prescription Management I considered prescription management with: Other (zofran ) Critical Care Time Critical Care Time Critical Care Time: No Discharge Plan Discharge Clinical Impression: COVID-19, Pharyngitis Patient Disposition: Home, Self-Care Instructions: COVID-19 (Coronavirus Disease 2019) (ED) Additional Instructions: Take your medications as prescribed. If you were prescribed antibiotics today, it is important that you take your medication to their entirety, do not skip any doses, do not finish them early. Today you tested positive for COVID-19. Take Ibuprofen or Tylenol as needed for fevers or body aches. Quarantine for 5 days and ensure you wear a mask. After 5 days you should wear a mask for 5 days after that. Practice social distancing and good hand hygiene. Drink plenty of fluids. Follow-up with your primary care provider this week. Return to the emergency department with new or worsening symptoms. In case of emergency call 911 You can purchase a pulse oximeter from your local pharmacy or grocery store, and monitor your oxygen saturation if it goes below 94% you should return to the emergency department for further evaluation. Prescriptions: New ondansetron 4 mg tablet,disintegrating 4 mg PO Q6H PRN (Reason: nausea and vomiting) Qty: 14 0RF No Action (DME) Knee Support Brace Misc See Rx Instructions .ROUTE .MEDSUPPLY Qty: 1 0RF Rx Instructions: SWETA-PULL LITE, LT, L albuterol sulfate [Ventolin HFA] 90 mcg/actuation HFA aerosol inhaler 2 puff inhalation QID PRN (Reason: for wheezing) Qty: 18 6RF Breo Ellipta 200-25 mcg/dose blister with device 1 ea inhalation DAILY Qty: 60 6RF lactulose 10 gram/15 mL solution 10 g PO DAILY PRN (Reason: constipation) Qty: 237 0RF benzonatate 200 mg capsule 200 mg PO TID PRN (Reason: cough) Qty: 15 0RF ibuprofen 600 mg tablet 600 mg PO Q6H PRN (Reason: pain) Qty: 30 0RF omeprazole 20 mg capsule,delayed release(DR/EC) 20 mg PO DAILY trazodone 50 mg tablet 25 mg PO DAILY baclofen 10 mg tablet 10 mg PO DAILY lisinopril 5 mg tablet 5 mg PO DAILY atorvastatin 20 mg tablet 20 mg PO DAILY buspirone 5 mg tablet 10 mg PO BID gabapentin 100 mg capsule 100 mg PO DAILY acetaminophen [Tylenol 8 Hour] 650 mg tablet extended release 650 mg PO Q8H fluoxetine 20 mg capsule 40 mg PO QAM simethicone [Gas Relief (simethicone)] 80 mg tablet,chewable 80 mg PO Q8H PRN (Reason: gas) triamcinolone acetonide 0.1 % cream topical sucralfate 1 gram tablet 1 g PO BID ipratropium bromide 42 mcg (0.06 %) spray,non-aerosol 2 spray intranasal TID-QID PRN (Reason: allergy symptoms) 30 Days Qty: 15 6RF Rx Instructions: administer into each nostril Referrals: Brooklyn Jalloh MD [Primary Care Provider] - 2 days Stand Alone Forms: Work/School Release Print Language: Citizen Of [place]
[2024-07-09 23:19] VITALS: BP 128/70; PULSE 42
[2024-07-09 23:47] VITALS: BP 109/77; PULSE 50
[2024-07-09 23:48] VITALS: BP 116/77; PULSE 55
[2024-07-09 23:52] LABS: IDNOW Serial# 08D9AD1C; Strep A Nucleic Acid Negative (Negative)
[2024-07-10 00:20] LABS: Influenza A PCR NEGATIVE (Negative); Influenza B PCR NEGATIVE (Negative); Resp Syncy Virus RNA Qual PCR NEGATIVE (Negative); SARS COV2 PCR INHOUSE NEGATIVE (Negative)
--- NOTE | 2024-07-10 00:33 | PC.NURSE ---
d/c education with direct support staff member to and self, pt states she will not continue with paxlovid as it is making her sx worse. pt concerned with heart rate of 55 bpm, sinus rosa on monitor felicia dickson aware and ok with d/c as this is baseline for pt. pt requested something for nausea prior to d/c however left ED when this RN speaking to TONIE for medication. pt took paperwork with her. axox4 ambulatory with steady gait at time of d/c. pt denied dizziness during orthostatic vitals.
[2024-07-10 00:34] VITALS: BP 116/77; PULSE 55; RESP 18; TEMP 36.9; O2SAT 96
--- OUTSIDE RECORDS SUMMARY | 2024-07-15 06:22 | XMS_ITS | Continuity of Care Document ---
Author Organization [facility] Address [address] [place] [id number]- Care Team Providers Care Entry Level Assistant Manager Name Role Phone Shubham TANG, Brooklyn Stout Primary Care Physician Encounter [facility] [place] Date(s): 04/09/24 - 05/09/24 [facility] [address] [place] [id number]- [place] Allergies, Adverse Reactions, Alerts Substance Reaction [...] water and swallow, # 120 tablet, Refills 2, Tot. Refills 2, Maintenance, 04/09/24 12:52:00 EDT, Route to Pharmacy Electronically, [facility], Partial fill upon patie... Start Date: 04/09/24 Status: Ordered Claritin-D By Mouth, Every 12 [...] Team Personnel Name: Brooklyn Jalloh MD Position: [facility] Physician - Primary Care Member Role: PCP Address: Address: [address] [place] [address], [address] [place] [address]- Care Team Related Persons Name: RHONA HANNA Name: MARK CHRISTINA Address: home [address] [place] [address] Name: MARK LIGHT Address: home [address] [place] [address] Name: RHONA HUNTER Address: home [address] [place] [id number]
--- OUTSIDE RECORDS SUMMARY | 2024-07-15 06:23 | XMS_ITS | Continuity of Care Document ---
Author Organization [employer] ter Address [address] [place] [address]- Care Team Providers Care Telephone Answerer Name Role Phone Shubham TANG, Brooklyn Stout Primary Care Physician [phone] Encounter [facility] Date(s): 06/05/24 - 06/05/[address] [address]- Discharge Disposition: A-D/C Home Attending Physician: Aneesh Souza MD Admitting Physician: Aneesh Souza MD Referring Physician: Aneesh Souza MD Allergies, Adverse Reactions, Alerts Substance Reaction [...] 04/09/24 12:52:00 EDT, Route to Pharmacy Electronically, [facility], Partial fill upon patie... Start [...] colonoscopy Confirmed Active Postop check Confirmed Active Vital Signs Most recent to oldest [Reference Range]: 1 2 3 Height 165 cm (06/05/24 7:44 AM) Weight 93 kg (06/05/24 7:44 AM) Oxygen Saturation [94-100 %] 96 % (06/05/24 8:47 AM) 96 % (06/05/24 8:41 AM) 95 % (06/05/24 8:32 AM) Pulse Rate [55-90 bpm] 62 bpm (06/05/24 7:44 AM) Body Mass Index [18.5-24.99 kg/m2] 34.16 kg/m2 *>HHI* (06/05/24 7:44 AM) Blood Pressure [90-138/55-84 mm Hg] 108/72mm Hg (06/05/24 8:47 AM) 110/65mm Hg (7/12/24 8:41 AM) 112/63mm Hg (06/05/24 8:32 AM) Respiratory Rate [16-30 br/min] 15 br/min *L* (06/05/24 8:47 AM) 17 br/min (06/05/24 8:41 AM) 20 br/min (06/05/24 8:32 AM) Temperature [96.8-100.4 DegF] 96.9 DegF (06/05/24 8:27 AM) 97.8 DegF (06/05/24 7:44 AM) Mode of Delivery (Oxygen) Room air (06/05/24 8:47 AM) Room air (06/05/24 8:41 AM) Room air (06/05/24 8:32 AM) Blood pressure sites Arm, right (06/05/24 8:47 AM) Arm, right (06/05/24 8:41 AM) Arm, right (06/05/24 8:32 AM) Temperature Route Temporal (06/05/24 8:27 AM) Temporal (06/05/24 7:44 AM) Dry Weight 93 kg (06/05/24 7:44 AM) Weight Obtained Via Patient/family state d (06/05/24 7:44 AM) Dry Weight Obtained Via Patient lift emmanuel ging scale (06/05/24 7:44 AM) Social History Social History Type Response Smoking Status Never (less than 100 in lifetime) entered on: 07/12/20 Sex Clinical Note * Event Display: GG EGD Please click on pdf link to open report Note * Florecita Oreilly RN: PERFORM Event Display: Discharge/Transfer Note Hospital Authored Date: [id number] Nursing Discharge Note Entered On: 06/05/2024 8:25 EDT Performed On: 06/05/2024 8:24 EDT by Florecita Oreilly RN Nursing Discharge Note 2 Discharge Time : 06/05/2024 9:02 EDT Marsha KAUR, [place] - 06/05/2024 9:02 EDT Discharge Level of Care at Discharge : Home/Senior Living/Foster Care Patient Left Unit Via : Wheelchair Patient Accompanied Off Unit with : Responsible adult DC Instructions Provided & Signed by Pt : Yes Patient Understands D/C Instructions : Yes Patient Instructions Discharge Signed : Yes Did Pt have Specialty Bed or Wound Vac : No Florecita Oreilly RN - 06/05/2024 8:24 EDT * Florecita Oreilly RN: PERFORM Event Display: Patient Education/Instruction Authored Date: [id number] Surgery Adult Discharge Instructions [address] [address] Name: FRANCISCA MAX : 1970?? Visit: 06/05/2024 06:31?? Current Date: 06/05/2024 08:25 ?? Account: [id number]?? Surgery Discharge Instructions We would like to thank [...] and their families. Surveys are administered by [employer] ?? If further treatment with your primary care physician or another doctor is recommended, it is important for you to keep the appointment. Call your primary care physician or return to the Emergency Department immediately if your condition worsens, fails to improve, or new symptoms develop. If you need to find a doctor, you can call [facility] Link for a referral at [phone] or toll free at [phone] ([phone]) or log in to [email or web address].. ?? [facility], in keeping with [facility] guidance, no longer requires face masks for staff, patientsor visitors in most situations. Similiar to time spent indoors at other locations, there is the chance that you were exposed to repiratory viruses during your time with us (such as flu or COVID-19). If you develop symptoms concerning for a viral respiratory infection, please seek testing (and treatment if indicated) from your medical provider or home test kit. ?? You can view and manage your care through the patient portal or by using a health care michael of your choosing. [employer] is a website that allows you to securely view your medical information including your hospital discharge summary, office visit summaries, medications and follow-up visits. You can also request appointments, renew medications, and request access to your medical information using a health care michael of your choosing, or just ask a question. You are entitled to know the individuals who participated in your treatment. This information is available within your medical record and will be provided upon your request. You can enroll at [email or web address] or register d uring your next office visit. You have been discharged from [facility], Patient Care Unit: ENDO??. If you have any questions regarding these instructions after you leave, please call us and we will be happy to assist you. [facility] Your Care Team Attending Physician Harley TANG, Aneesh Muñoz?? Discharging Providers Harley TANG, Aneesh Muñoz Reason for Admission DYSPHAGIA Primary Care Provider Shubham TANG, Brooklyn Stout? Advance Directive Health Care Proxy on File Yes - Health Care Proxy What to do next Instructions From Your Doctor ?? Orders?? Daystay Protocol, ??06/05/24 8:20:00 EDT?? Scheduled Follow-Up Appointments Saturday 11:15 AM EST ?? Where: [facility] Radiology [facility] [address], [address] [place] [address]- Status: Pending You Need to Schedule the Following Appointments Follow Up with??Follow up with primary care as needed Follow Up with??Brooklyn Jalloh When:??In 0 days Discharge Medications FRANCISCA CUNNINGHAM :1970 Visit Date:06/05/2024 Medications: Please continue your medications until treatment is completed or stopped by your provider. You may resume your daily prescription medications. Discuss any questions related to medications with [...] for reconstitution) 17 gram Oral Daily Unchanged Simethicone (Gas-X 80 mg oral tablet, chewable) 1 tab(s) 3 times a day after meals and bedtime Unchanged Simvastatin (simvastatin 20 mg oral tablet) 1 tab(s) Oral Daily at Bedtime Unchanged Sucralfate (Carafate 1 gm oral tablet) 1 tab(s) Oral Twice a day dissolve in a capful of water and swallow ?? Unchanged Trazodone 25 Milligram Oral Daily at Bedtime Allergies (NKA means No Known Allergies) shellfish??(rash) Education Materials Below is the list of Educational Leaflet Providered with your Discharge Instructions. [employer] Patient Education - Surgery Medical Daystay Surgical Overnight Discharge Instructions?? [employer] Patient Education - Hiatal Hernia Discharge Instructions?? Valuables and Belongings I fully understand and agree that [facility] accepts no responsibility for all my [...] encouraged to send valuables and belongings home. ? Other Discharge Information ? Case Management Discharge Plan?? Discharge Plan?? Discharge Level of Care at Discharge: Home/Senior Living/Foster Care ?? Pulmonary Rehab Status?? Pulmonary Rehab Discharge Status?? Respiratory Rate:??10 br/min??Low ? Common Emergency Awareness Tips IS [...] are strongly encouraged to quit. Please call [facility] Link at [phone] or [phone] ([phone]) or log in to [email or web address] for referrals to smoking cessation programs. ?? The National Suicide Prevention Hotline is available 17/06 if you or someone you know needs to find a reason to keep living. By calling 1-852-299-iMemories (0094) you'll be connected to a skilled, trained counselor at a crisis center in your area. SURGERY DISCHARGE INSTRUCTIONS SIGNATURE PAGE FRANCISCA CUNNINGHAM Location:[facility] Registration Date and Time:06/05/2024 06:31 EDT Primary Care Physician: Brooklyn Jalloh MD, Attending Physician: Harley TANG, Aneesh Muñoz, I FRANCISCA CUNNINGHAM, have received the above patient education materials/instructions and have verbalized understanding. If ambulance or transport services are being used I further acknowledge being given a choice of service. ?? If you need to contact me, please call me at this number: . Patient/Fish Hatchery Specialist Name: Patient/Fish Hatchery Specialist Signature: Relationship to Patient: Witness Name/Signature: Date: * Florecita Oreilly RN: PERFORM, SIGN, VERIFY Event Display: Patient Education Handout Authored Date: [id number] * Florecita Oreilly RN: PERFORM Event Display: Patient Education Leaflets Authored Date: [id number] Surgery Medical Daystay Surgical Overnight Discharge Instructions ?? 295 Medical Daystay/Surgical Overnight Discharge Instructions ? Since your coordination and judgment may be altered by medication and/or anesthesia, a responsible adult must drive you home from the hospital. ? If you have received medication for pain or sedation while under our care, you should not drive, operate machinery, drink alcohol, or sign any legal documents for 24 hours.?? You should have someone with you at home tonight. ? Remain at home the day of discharge.?? You may be up and about unless otherwise instructed by your physician. ? You may resume your daily prescription medication schedule.?? Any depressant medication should be avoided for 24 hours unless otherwise instructed by your surgeon or anesthesiologist. ? Call your physician for a follow-up appointment.? If you experience unusual or severe pain not relied by your pain medication, excessive bleedingor drainage, persistent nausea and vomiting, excessive swelling or redness, foul odor from incisionsite or fever over 100.6F, you need to call your physician. ? A follow-up phone call by a nurse will be made the day after your procedure.?? If you have stayed with us over night, you will not be receiving a follow-up phone call. ? Nausea and vomiting are a common side effect of prescription pain medication.?? We recommend that pills are not taken on an empty stomach.?? While taking any prescription pain medication you should not drive or drink alcohol. ? * Florecita Oreilly RN: PERFORM Event Display: Patient Education Leaflets Authored Date: [id number] Hiatal Hernia Discharge Instructions ?? 671 ??Hiatal Hernia Discharge Instructions ??You must carefully read the Consumer Information Use and Disclaimer below in order to understand and correctly use this information?? About this topic Hiatal hernia is when part of the stomach is up in the chest. Normally, the stomach sits below the diaphragm, the muscle that divides the chest and abdomen. The diaphragm has a small opening in it tolet the esophagus, or swallowing tube, pass through. With a hiatal hernia, the stomach pushes up through that hole too.?? What care is needed at home? Ask your doctor what you need to do when you go home. Make sure??you ask questions ??? if you do not understand what the doctor says. This way you will know what you need to do. ??? Do not wear tight clothing over your belly. Wear clothes and belts that??are loose around your waist. ??? Raise the head of the bed up 6 to 8 inches (15 to 20 cm) or use a??wedge pillow. This position may keep stomach acid from getting into the esophagus. ?? What follow-up care is needed? Your doctor may ask you to make visits to the office to check on your progress. Be sure to keep these visits.?? What drugs may be needed? The doctor may order drugs to: ??? Lower stomach acid ??? Stop heartburn ??? Help with pain ??? Soften stools ?? Will physical activity be limited? You may have to limit your activity. Talk to the doctor about the right??amount of activity for you. ??? Avoid sports that involve lifting heavy things and bending. This can cause stress on your belly. ??? Avoid straining.??Having trouble passing stool or hard stools may make??your hernia worse. ?? What changes to diet are needed? ??Avoid large, heavy meals. Eat a few small meals throughout the day.Avoid drinking too much with meals.Wait at least 2 to 3 hours after eating before lying down or bending??over.Avoid foods that mayupset the stomach. Some people have an upset??belly after: ??? Coffee ??? [place] fruits and juices ??? Tomato products ??? Hot peppers ??? Fizzy drinks ??? Chocolate ??? Peppermint ??? Fatty foods ??? Beer, wine, and mixed drinks (alcohol) ?? What problems could happen? Lower blood levels of iron ??? No blood flow to hernia ?? What can be done to prevent this health problem? Keep a healthy weight. ??? Lose weight if you are overweight. ??? Avoid smoking. Ask for help if it's hard to quit. ??? Avoid foods that may upset the stomach. ??? Don???t overeat. Eat smallermeals. ??? Try to eat at least 2 to 3 hours before laying down. Avoid eating before sleeping at night. ??? When do I need to call the doctor? Heartburn that is worse when bending over or lying down ??? Swallowing problems ?? Teach Back: Helping You Understand The [...] these:? I can tell you about my condition. ??? I can tell you what changes I need to make with my diet or drugs. ??? I can tell you what I will do if I have more heartburn when I am??bending over or lying down. ?? Where can I learn more? NHS Choiceshttp://www.nhs.uk/conditions/hernia-hiatus/pages/introduction.aspxLast Reviewed Pbct2365-18-30Lznkmize Information Use and Disclaimer:This generalized information is [...] assessment of a patient???s specific and unique circ umstances. Patients must speak with a health care provider for complete information about their health, medical questions, and treatment options, including any risks or benefits regarding use of medications. This information does not endorse any treatments or medications as safe, effective, or approved for treating a specific patient. [employer] and its affiliates disclaim any warranty or liability relating to this information or the use thereof. The use of this information is governed by the Terms of Use, available at??https://www.[employer].Vinveli/en/know/lyftgbdo-hhiiwgpummaao-ygelsGusz Updated 01/17/22? Patient Care team information Care Team Personnel Name: Shubham TANG, [place] Stout Position: [facility] Physician - Primary Care Member Role: PCP Address: Address: [address] [place] [address], [address] [place] [address]- [place] Care Team Related Persons Name: RHONA HANNA Name: MARK CHRISTINA Address: [place] [address] Name: MARK LIGHT Address: home [address] [place] [address] Name: RHONA HUNTER Address: home [address] [place] [address]
== END 2024-07-10 00:35 | disposition home or self-care (01) ==
PROVIDERS: Physician Assistant; Emergency Provider Internal Medicine; PCP General Practice
DX: U07.1 COVID-19 (principal); J02.9 Acute pharyngitis, unspecified; R00.1 Bradycardia, unspecified; R42 Dizziness and giddiness; R11.2 Nausea with vomiting, unspecified; M79.10 Myalgia, unspecified site; Z79.899 Other long term (current) drug therapy
CPT/HCPCS: 0241U; 36415; 80053; 82248; 83690; 85025; 87651; 93005; 99283; 99284

== ENCOUNTER 2024-07-23 18:42 | Outpatient (REF) | payer OTHER, SELFPAY ==
[2024-07-24 12:17] LABS: CT PCR NOT DETECTED (Not Detect.); NG PCR NOT DETECTED (Not Detect.)
[2024-07-24 13:13] LABS: Bacterial Vaginosis PCR NEGATIVE (Negative); Candida Group PCR DETECTED (Not Detect); Candida glab krusei PCR NOT DETECTED (Not Detect); Trichomonas vaginalis PCR NOT DETECTED (Not Detect)
== END 2024-07-23 18:43 | disposition home or self-care (01) ==
LOC: HO.HHCLNP 18:42
PROVIDERS: Visit Provider Internal Medicine
DX: N89.8 Other specified noninflammatory disorders of vagina (principal)
CPT/HCPCS: 0352U; 87491; 87591

== ENCOUNTER 2024-07-24 10:56 | Outpatient (AMB) | payer OTHER, SELFPAY ==
[2024-07-24 11:37] VITALS: BP 110/70; PULSE 69; O2SAT 97; BMI 34.4
--- NOTE | 2024-07-24 11:37 | MHC.OFFVIS ---
Vital Signs 07/24/24 11:37 Height 5 ft 5 in Weight 207 lb BMI 34.4 BP 110/70 Blood Pressure Location Lt brachial Position Sitting Pulse 69 Pulse Source Pulse Oximeter Pulse Oximetry (%) 97 Oxygen Delivery Method Room Air Intake Visit Reasons: Asthma Fiberglass Bonding Machine Tender Required: Yes Fiberglass Bonding Machine Tender Services: Fiberglass Bonding Machine Tender Present Fiberglass Bonding Machine Tender Name: juan Allergies shrimp [SHRIMP] Allergy (Unknown, Verified 07/24/24 11:42) UNKNOWN HPI HPI Asthma: Details: 54-year-old lady, nonsmoker, but with significant exposure to secondhand smoke for over 20 years, followed for mild LEAH and asthma.? Patient has been using her CPAP with reasonable control of her underlying sleep apnea.? Her asthma symptoms are baseline controlled on regimen of Breo and albuterol MDI.? She did have recent COVID 19 approximately 2 weeks prior from which she continues to recover. [facility] Medical History Other and unspecified hyperlipidemia Essential hypertension Family history of coronary artery disease Bilateral knee pain Chronic pain Fibromyalgia Surgical History History of cholecystectomy H/O section H/O lateral meniscus repair of left knee History of hysterectomy Family History Father History of open heart surgery Brother Hypertension Mother Colon cancer Social History Household Members Other:: son Housing: Apartment Alcohol intake: never Patient Tobacco Use Status: Never used Tobacco Current occupational status: disabled Current occupation: Right Handed Review of Systems Const Denies daytime sleepiness, Denies excessive sweating, Denies fatigue, Denies fever(s), Denies lethargy, Denies malaise, Denies night sweats, Denies snoring and Denies weight loss Eyes Denies blurry vision and Denies itchy eyes ENT Denies nasal congestion, Denies post nasal drip, Denies sinus pain, Denies sinus pressure and Denies other ( Thrush) Card Denies chest pain, Denies pedal edema, Denies dyspnea, Denies orthopnea and Denies paroxysmal nocturnal dyspnea Resp Denies cough, Denies hemoptysis, Denies excessive phlegm production, Denies dyspnea, Denies snoring and Denies wheezing GI Denies abdominal pain and Denies heartburn Musc Denies myalgias, Denies arthralgias and Denies joint swelling Skin/Breast Denies rash Neuro Denies memory loss and Denies seizure-like activity Psych Denies abnormal sleep pattern, Denies anxiety and Denies memory loss Endo Denies excessive sweating, Denies fatigue and Denies heat intolerance Bryant/Lymph Denies easy bruising Aller/Immun Denies itchy eyes, Denies seasonal rhinorrhea and Denies wheezing Physical Exam Vital Signs: Last Vital Signs Pulse 69 07/24/24 11:37 BP 110/70 07/24/24 11:37 Pulse Ox 97 07/24/24 11:37 Oxygen Delivery Method Room Air 07/24/24 11:37 BMI result Body Mass Index 34.4 Const General: no acute distress and alert Nutritional Appearance: not obese Orientation/consciousness: Other orientation findings ( oriented) HEENT Head: Yes atraumatic Eyes General: appearance normal, both eyes and all related structures Sclerae: sclerae normal EOM: EOMs intact bilaterally Neck Neck: Yes supple Lymphatic: no lymphadenopathy noted Resp Effort & Inspection: normal respiratory effort and no use of accessory muscles Auscultation: clear to auscultation bilaterally Cardio Rate: regular rate Rhythm: regular rhythm Heart sounds: no gallops, no murmurs and no rubs Skin General skin exam: other ( warm) Extrem General: No clubbing, No cyanosis and No edema Assessment & Plan Assessment & Plan (1) Asthma: Code(s): J45.909 - Unspecified asthma, uncomplicated Category: Medical Plan: Well controlled on Breo and albuterol MDI. Continue current regimen. Still recovers from recent COVID 19, will treat with a course of prednisone. (2) LEAH (obstructive sleep apnea): Code(s): G47.33 - Obstructive sleep apnea (adult) (pediatric) Category: Medical Plan: Well controlled on current CPAP therapy. Continue CPAP therapy. Coding Level of Care Code Est Pt Level 4 (27605) Diagnoses Asthma J45.909 LEAH (obstructive sleep apnea) G47.33
== END 2024-07-24 11:56 | disposition home or self-care (01) ==
PROVIDERS: PCP General Practice; Visit Provider Internal Medicine Pulmonary Disease
DX: J45.909 Unspecified asthma, uncomplicated (principal); G47.33 Obstructive sleep apnea (adult) (pediatric)
CPT/HCPCS: 99214

== ENCOUNTER → 2024-07-24 10:56 | Outpatient (BNVA) | payer OTHER, SELFPAY | PROVIDERS: PCP General Practice; Visit Provider Internal Medicine Pulmonary Disease | DX: J45.909 Unspecified asthma, uncomplicated (principal); G47.33 Obstructive sleep apnea (adult) (pediatric); Z99.89 Dependence on other enabling machines and devices | CPT/HCPCS: 99212 ==

== ENCOUNTER 2024-08-03 16:07 | Outpatient (REF) | payer OTHER, SELFPAY ==
[2024-08-03 18:27] LABS: Alanine Aminotransferase 29 U/L (0-31); Albumin Level 4.4 g/dL (3.5-5.0); Alkaline Phosphatase 146 U/L (39-117); Anion Gap 16 (12-20); Aspartate Amino Transferase 17 U/L (5-31); Bilirubin Total 0.3 mg/dL (0.0-1.0); Blood Urea Nitrogen 18 mg/dL (9-16); Calcium 9.7 mg/dL (8.4-10.2); Carbon Dioxide 25 mmol/L (22-29); Chloride 104 mmol/L (96-108); Estimated Glomerular Filt Rate > 60; Glucose Random 111 mg/dL (60-115); Sodium 141 mmol/L (135-145); Total Protein 7.6 g/dL (6.5-8.0)
== END 2024-08-03 16:08 | disposition home or self-care (01) ==
LOC: HO.HHCL 16:07
PROVIDERS: Visit Provider General Practice
DX: Z00.00 Encounter for general adult medical examination without abnormal findings (principal)
CPT/HCPCS: 36415; 80053

== ENCOUNTER 2024-08-11 09:20 | Outpatient (REF) | payer OTHER, SELFPAY ==
--- NOTE | ~2024-08-11 | XR_ITS ---
EXAMINATION: XR SHOULDER, RIGHT CLINICAL INFORMATION: Pain in right shoulder. COMPARISON: None available. TECHNIQUE: AP external rotation, Grashey, scapular Y, and axillary views of the right shoulder. FINDINGS: Minimal calcific density in the region of the superior rotator cuff. Bones, joints and soft tissues otherwise unremarkable. XR/XR shoulder RT min 2V IMPRESSION: Suspect calcific tendinosis and/or calcific tendinitis of the superior rotator cuff. Electronically signed by: Marco A Escobar MD 09/03/2024 07:27 AM EDT RP
== END 2024-08-11 09:21 | disposition home or self-care (01) ==
LOC: HO.HHCX 09:20
PROVIDERS: PCP General Practice; Visit Provider Orthopaedic Surgery
DX: M25.511 Pain in right shoulder (principal)
CPT/HCPCS: 73030

== ENCOUNTER 2024-08-11 09:20 | Outpatient (AMB) | payer OTHER, SELFPAY ==
--- NOTE | 2024-08-11 09:25 | A.OFFVIS_ITS ---
Vital Signs 08/11/24 09:33 Height 5 ft 5 in Weight 207 lb BMI 34.4 Intake Visit Reasons: Bilateral knee pain Intake Note: Machelle is 54 year old female who presents with bilateral knee pains. The patient states that her pains have gotten worse over the last few months in spite of continued non operative treatments. She has had cortisone injections in the past which make her ?swell?. She states that she can not tolerate more cortisone injections. She has had Durolane viscosupplementation injections which gave her fairly good relief. She has taken Tylenol and ibuprofen which gave her minimal relief. She has failed the last 3 months of conservative treatment which includes a home exercise program and topical creams as well as anti-inflammatory medicines and Tylenol. The patient wishes to hold off on surgery for as long as possible. Electronics Supervisor Required: Yes Electronics Supervisor Language: Supervisor Computer Operations Name: Frank Lomeli [id number] Allergies shrimp [SHRIMP] Allergy (Unknown, Verified 08/11/24 09:29) UNKNOWN Medication List - Last Reconciled 08/11/24 by Ramesh Alba MD acetaminophen ER (Tylenol 8 Hour) 650 mg PO Q8H albuterol sulfate 90 mcg/actuation (Ventolin HFA) 2 puffs inhalation QID PRN atorvastatin 20 mg PO DAILY baclofen 10 mg PO DAILY benzonatate 200 mg PO TID PRN buspirone 10 mg PO BID fluoxetine 40 mg PO QAM fluticasone furoate-vilanterol 200-25 mcg/dose (Breo Ellipta) 1 ea inhalation DAILY gabapentin 100 mg PO DAILY ibuprofen 600 mg PO Q6H PRN ipratropium bromide 2 sprays intranasal TID-QID PRN 30 days lactulose 10 grams (15 mL) PO DAILY PRN leg brace (Knee Support Brace) SWETA-PULL LITE, LT, L lisinopril 5 mg PO DAILY omeprazole 20 mg PO DAILY ondansetron 4 mg PO Q6H PRN prednisone 40 mg (2 x 20 mg) PO DAILY simethicone (Gas Relief (simethicone)) 80 mg PO Q8H PRN sucralfate 1 g PO BID trazodone 25 mg PO DAILY triamcinolone acetonide 0.1% appl topical PFSH Medical History Other and unspecified hyperlipidemia Essential hypertension Family history of coronary artery disease Bilateral knee pain Chronic pain Fibromyalgia Surgical History History of cholecystectomy H/O section H/O lateral meniscus repair of left knee History of hysterectomy Family History Father History of open heart surgery Brother Hypertension Mother Colon cancer Social History Household Members Other:: son Housing: Apartment Alcohol intake: never Patient Tobacco Use Status: Never used Tobacco Current occupational status: disabled Current occupation: Right Handed Physical Exam Vital Signs: BMI result Body Mass Index 34.4 Const Other: Well-nourished well-developed very friendly female awake alert and oriented x3 in no acute distress Extrem Other: Bilateral lower extremity examination shows good capillary refill, no skin lesions noted, normal sensation light touch Bilateral knee examination shows minimal effusions, palpable crepitus with range of motion, pain with range of motion, range of motion from -3 degrees to 115 degrees, no instability Results Reviewed Results Reviewed: X-rays of the patient's bilateral knee show joint space narrowing, subchondral sclerosis, no acute bony abnormalities Assessment & Plan Assessment & Plan (1) Bilateral knee pain: Code(s): M25.561 - Pain in right knee; M25.562 - Pain in left knee Category: Medical Plan Ms. Jose Barroso presents with bilateral knee pains due to degenerative joint disease. I had a lengthy discussion with the patient regarding the treatment options. She wishes to hold off on surgery for as long as possible. I agree with this plan. I will see whether or not the patient's insurance company will cover a another Durolane injection for both of her knees. I will see her back once the injections are available. If she fails continued non operative treatments we will further discuss the risks and benefits of surgical intervention. Feel free to call me at any time should questions regarding her orthopedic management arise. I spent 20 minutes in reviewing the patient's records and imaging studies, seeing the patient and documenting in the medical record. Coding Level of Care Code Est Pt Level 3 (76003) Complex EM visit Add On G2211 Diagnoses Bilateral knee pain M25.561; M25.562
[2024-08-11 09:33] VITALS: BMI 34.4
== END 2024-08-11 09:48 | disposition home or self-care (01) ==
PROVIDERS: PCP General Practice; Visit Provider Orthopaedic Surgery
DX: M17.0 Bilateral primary osteoarthritis of knee (principal)
CPT/HCPCS: 99213; G2211

== ENCOUNTER 2024-08-11 13:21 | Outpatient (REF) | payer OTHER, SELFPAY ==
[2024-08-11 16:46] LABS: Alanine Aminotransferase 27 U/L (0-31); Albumin Level 4.2 g/dL (3.5-5.0); Alkaline Phosphatase 144 U/L (39-117); Aspartate Amino Transferase 16 U/L (5-31); Bilirubin Direct 0.2 mg/dL (0.0-0.5); Bilirubin Total 0.5 mg/dL (0.0-1.0); Gamma Glutamyl Transpeptidase 86 U/L (7-33); Total Protein 7.3 g/dL (6.5-8.0)
== END 2024-08-11 13:22 | disposition home or self-care (01) ==
LOC: HO.HHCL 13:21
PROVIDERS: Visit Provider General Practice
DX: R74.8 Abnormal levels of other serum enzymes (principal); M25.511 Pain in right shoulder
CPT/HCPCS: 36415; 73030; 80076; 82977; 99212

== ENCOUNTER 2024-08-18 11:08 | Outpatient (REF) | payer OTHER, SELFPAY ==
[2024-08-18 13:52] LABS: C Reactive Protein 0.55 mg/dL (< or = 0.50)
[2024-08-19 08:52] LABS: HBc Num1 0.14 S/CO (0.00-0.79); HIV AB/AG Nonreactive (Nonreactive); HIV Num 1 0.04 S/CO (0.00-0.99); Hepatitis B Core Antibody Nonreactive (Nonreactive); Hepatitis B Surface Antigen Negative (Negative); ~Hepatitis B Surface Antibody NONREACTIVE (Nonreactive); ~Hepatitis C Antibody Nonreactive (Nonreactive)
== END 2024-08-18 11:09 | disposition home or self-care (01) ==
LOC: HO.HHCL 11:08
PROVIDERS: Visit Provider General Practice
DX: R74.8 Abnormal levels of other serum enzymes (principal)
CPT/HCPCS: 36415; 86140; 86704; 86706; 86803; 87340; 87389

== ENCOUNTER 2024-10-14 13:27 | Outpatient (AMB) | payer OTHER, SELFPAY ==
--- NOTE | 2024-10-14 13:28 | A.OFFVIS_ITS ---
Vital Signs 10/14/24 13:33 Height 5 ft 5 in Weight 197 lb 1.492 oz BMI 32.8 BP 116/64 Blood Pressure Location Lt brachial Position Sitting Respiration 18 Pulse 82 Pulse Source Pulse Oximeter Pulse Oximetry (%) 97 Oxygen Delivery Method Room Air Intake Visit Reasons: FM/CM APT Intake Note: Patient presents for FM. Director Of Business Continuity Required: Yes Director Of Business Continuity Language: Boot [employer] Saddle [employer] Person Services: Director Of Business Continuity Present Director Of Business Continuity Name: Minh [id number] Information Interpreted: non-clinical & clinical Allergies shrimp [SHRIMP] Allergy (Unknown, Verified 10/14/24 13:32) UNKNOWN Medication List - Last Reconciled 10/14/24 by Naveen Arevalo MD acetaminophen ER (Tylenol 8 Hour) 650 mg PO Q8H albuterol sulfate 90 mcg/actuation (Ventolin HFA) 2 puffs inhalation QID PRN atorvastatin 20 mg PO DAILY baclofen 10 mg PO DAILY benzonatate 200 mg PO TID PRN buspirone 10 mg PO BID fluoxetine 40 mg PO QAM fluticasone furoate-vilanterol 200-25 mcg/dose (Breo Ellipta) 1 ea inhalation DA TERA gabapentin 100 mg PO DAILY ibuprofen 600 mg PO Q6H PRN ipratropium bromide 2 sprays intranasal TID-QID PRN 30 days lactulose 10 grams (15 mL) PO DAILY PRN leg brace (Knee Support Brace) SWETA-PULL LITE, LT, L lisinopril 5 mg PO DAILY metformin ER 500 mg PO DAILY omeprazole 20 mg PO DAILY ondansetron 4 mg PO Q6H PRN prednisone 40 mg (2 x 20 mg) PO DAILY simethicone (Gas Relief (simethicone)) 80 mg PO Q8H PRN sucralfate 1 g PO BID trazodone 25 mg PO DAILY triamcinolone acetonide 0.1% appl topical HPI Comments Details: This is a 54-year-old female with generalized osteoarthritis and fibromyalgia who presents for follow-up. She states that she has received bilateral knee gel injections by Orthopedics in 04/13/2024. She states that they provided reasonable relief. She has not been having right shoulder pain. She states that she had a right shoulder x-ray and was told that she has plenty of calcification. She has been trying to lose weight. She was started on metformin for prediabetes and she has lost some weight. She states that she walks daily for about 40 minutes. Continues to have diffuse pain and generalized fatigue PFS Medical History Other and unspecified hyperlipidemia Essential hypertension Family history of coronary artery disease Bilateral knee pain Chronic pain Fibromyalgia Surgical History History of cholecystectomy H/O section H/O lateral meniscus repair of left knee History of hysterectomy Family History Father History of open heart surgery Brother Hypertension Mother Colon cancer Social History Household Members Other:: son Housing: Apartment Alcohol intake: never Patient Tobacco Use Status: Never used Tobacco Current occupational status: disabled Current occupation: Right Handed Review of Systems Const Reports body aches, Reports fatigue and Reports weakness Musc Reports back pain, Reports myalgias, Reports arthralgias and Reports limited range of motion Neuro Reports weakness Endo Reports fatigue Physical Exam Vital Signs: Last Vital Signs Pulse 82 10/14/24 13:33 Resp 18 10/14/24 13:33 BP 116/64 10/14/24 13:33 Pulse Ox 97 10/14/24 13:33 Oxygen Delivery Method Room Air 10/14/24 13:33 BMI result Body Mass Index 32.8 Const General: cooperative, healthy appearing and comfortable Nutritional Appearance: obese Orientation/consciousness: patient oriented x3 Limitations: ambulation with cane HEENT Head: Yes normocephalic and Yes atraumatic Mouth: moist mucous membranes Resp Effort & Inspection: normal respiratory effort and able to speak in complete sentences Auscultation: clear to auscultation bilaterally Cardio Rate: regular rate Skin General skin exam: no rashes or lesions noted Neuro General: patient oriented x3 Extrem Other: Mild osteoarthritic changes of both hands with no active synovitis Multiple fibromyalgia tender points Assessment & Plan Assessment & Plan (1) Fibromyalgia: Code(s): M79.7 - Fibromyalgia Category: Medical Plan: This is a 54-year-old female with fibromyalgia who presents for follow-up. Upon evaluation her symptoms are consistent with generalized osteoarthritis and fibromyalgia. Discussed management of fibromyalgia with patient. Is a noninflammatory, non- autoimmune central afferent processing disorder leading to a diffuse pain syndrome. Patient follows up regularly with a psychologist every 2 weeks and a psychiatrist every 3 months. She uses a CPAP machine regularly for her sleep apnea. Patient walks regularly. Advised patient to consider other low-impact exercises such as light weights, aquatherapy Follow-up in 1 year Plan I spent 15 minutes reviewing patient's chart, evaluating patient, counseling patient and documenting in the chart Coding Level of Care Code Est Pt Level 3 (97913) Diagnoses Fibromyalgia M79.7
[2024-10-14 13:33] VITALS: BP 116/64; PULSE 82; RESP 18; O2SAT 97; BMI 32.8
== END 2024-10-14 13:58 | disposition home or self-care (01) ==
PROVIDERS: PCP General Practice; Visit Provider Student in an Organized Health Care Education/Training Program
DX: M79.7 Fibromyalgia (principal)
CPT/HCPCS: 99213

== ENCOUNTER → 2024-10-14 13:27 | Outpatient (BNVA) | payer OTHER, SELFPAY | PROVIDERS: PCP General Practice; Visit Provider Student in an Organized Health Care Education/Training Program | DX: M79.7 Fibromyalgia (principal) | CPT/HCPCS: 99212 ==

== ENCOUNTER 2024-11-11 11:06 | Outpatient (AMB) | payer OTHER, SELFPAY ==
[2024-11-11 11:10] VITALS: BP 114/70; PULSE 90; O2SAT 100; BMI 33.3
--- NOTE | 2024-11-11 11:10 | MHC.OFFVIS ---
Vital Signs 11/11/24 11:10 Height 5 ft 5 in Weight 200 lb BMI 33.3 BP 114/70 Blood Pressure Location Lt brachial Position Sitting Pulse 90 Pulse Source Doppler Pulse Oximetry (%) 100 Oxygen Delivery Method Room Air Intake Visit Reasons: Asthma Explosive Operator Supervisor Required: Yes Explosive Operator Supervisor Name: Georgette Torres Brittney Allergies shrimp [SHRIMP] Allergy (Unknown, Verified 11/11/24 11:17) UNKNOWN HPI HPI Asthma: Details: 54-year-old lady, nonsmoker, but with significant exposure to secondhand smoke for over 20 years, followed for mild LEAH and asthma.? Patient has been using her CPAP with reasonable control of her underlying sleep apnea.? Her asthma symptoms are baseline controlled on regimen of Breo and albuterol MDI.? Patient did have another episode of COVID a paroxysmally few weeks prior, however she has recovered almost to her prior baseline. [facility] Medical History Other and unspecified hyperlipidemia Essential hypertension Family history of coronary artery disease Bilateral knee pain Chronic pain Fibromyalgia Surgical History History of cholecystectomy H/O section H/O lateral meniscus repair of left knee History of hysterectomy Family History Father History of open heart surgery Brother Hypertension Mother Colon cancer Social History Household Members Other:: son Housing: Apartment Alcohol intake: never Patient Tobacco Use Status: Never used Tobacco Current occupational status: disabled Current occupation: Right Handed Review of Systems Const Denies daytime sleepiness, Denies excessive sweating, Denies fatigue, Denies fever(s), Denies lethargy, Denies malaise, Denies night sweats, Denies snoring and Denies weight loss Eyes Denies blurry vision and Denies itchy eyes ENT Denies nasal congestion, Denies post nasal drip, Denies sinus pain, Denies sinus pressure and Denies other ( Thrush) Card Denies chest pain, Denies pedal edema, Denies dyspnea, Denies orthopnea and Denies paroxysmal nocturnal dyspnea Resp Denies cough, Denies hemoptysis, Denies excessive phlegm production, Denies dyspnea, Denies snoring and Denies wheezing GI Denies abdominal pain and Denies heartburn Musc Denies myalgias, Denies arthralgias and Denies joint swelling Skin/Breast Denies rash Neuro Denies memory loss and Denies seizure-like activity Psych Denies abnormal sleep pattern, Denies anxiety and Denies memory loss Endo Denies excessive sweating, Denies fatigue and Denies heat intolerance Bryant/Lymph Denies easy bruising Aller/Immun Denies itchy eyes, Denies seasonal rhinorrhea and Denies wheezing Physical Exam Vital Signs: Last Vital Signs Pulse 90 11/11/24 11:10 BP 114/70 11/11/24 11:10 Pulse Ox 100 11/11/24 11:10 Oxygen Delivery Method Room Air 11/11/24 11:10 BMI result Body Mass Index 33.3 Const General: no acute distress and alert Nutritional Appearance: not obese Orientation/consciousness: Other orientation findings ( oriented) HEENT Head: Yes atraumatic Eyes General: appearance normal, both eyes and all related structures Sclerae: sclerae normal EOM: EOMs intact bilaterally Neck Neck: Yes supple Lymphatic: no lymphadenopathy noted Resp Effort & Inspection: normal respiratory effort and no use of accessory muscles Auscultation: clear to auscultation bilaterally Cardio Rate: regular rate Rhythm: regular rhythm Heart sounds: no gallops, no murmurs and no rubs Skin General skin exam: other ( warm) Extrem General: No clubbing, No cyanosis and No edema Assessment & Plan Assessment & Plan (1) Asthma: Code(s): J45.909 - Unspecified asthma, uncomplicated Category: Medical Plan: Well controlled current regimen of Breo and albuterol MDI. Continue current regimen. (2) LEAH (obstructive sleep apnea): Code(s): G47.33 - Obstructive sleep apnea (adult) (pediatric) Category: Medical Plan: Well controlled on current CPAP therapy. Continue CPAP therapy. Coding Level of Care Code Est Pt Level 4 (60195) Diagnoses Asthma J45.909 LEAH (obstructive sleep apnea) G47.33
== END 2024-11-11 11:24 | disposition home or self-care (01) ==
PROVIDERS: PCP General Practice; Visit Provider Internal Medicine Pulmonary Disease
DX: J45.909 Unspecified asthma, uncomplicated (principal); G47.33 Obstructive sleep apnea (adult) (pediatric)
CPT/HCPCS: 99214

== ENCOUNTER → 2024-11-11 11:06 | Outpatient (BNVA) | payer OTHER, SELFPAY | PROVIDERS: PCP General Practice; Visit Provider Internal Medicine Pulmonary Disease | DX: J45.909 Unspecified asthma, uncomplicated (principal); G47.33 Obstructive sleep apnea (adult) (pediatric) | CPT/HCPCS: 99212 ==

== ENCOUNTER 2024-12-03 09:36 | Outpatient (AMB) | payer OTHER, SELFPAY ==
--- NOTE | 2024-12-03 09:40 | A.OFFVIS_ITS ---
Vital Signs 12/03/24 09:47 Height 5 ft 5 in Weight 200 lb BMI 33.3 Intake Visit Reasons: Bilateral knee pain Intake Note: Machelle is 54 year old female who presents with complaints of progressively worsening bilateral knee pains. She describes her pains as sharp in nature. She has had cortisone injections in the past which gave her minimal relief. She has also had Durolane viscosupplementation injections which gave her good relief. She has done physical therapy exercises which aggravated her pain. She has also tried Tylenol and anti-inflammatory medicines which gave her minimal relief. She wishes to hold off on total knee replacement surgery for as long as possible. Cloth Mercerizing Supervisor Required: Yes Cloth Mercerizing Supervisor Language: Office Executive Services: Cloth Mercerizing Supervisor Present Cloth Mercerizing Supervisor Name: RowdyMARISOL/GEMMA Allergies shrimp [SHRIMP] Allergy (Unknown, Verified 12/03/24 09:47) UNKNOWN Medication List - Last Reconciled 12/03/24 by Ramesh Alba MD acetaminophen ER (Tylenol 8 Hour) 650 mg PO Q8H albuterol sulfate 90 mcg/actuation (Ventolin HFA) 2 puffs inhalation QID PRN atorvastatin 20 mg PO DAILY baclofen 10 mg PO DAILY benzonatate 200 mg PO TID PRN buspirone 10 mg PO BID fluoxetine 40 mg PO QAM fluticasone furoate-vilanterol 200-25 mcg/dose (Breo Ellipta) 1 ea inhalation DAILY gabapentin 100 mg PO DAILY ibuprofen 600 mg PO Q6H PRN ipratropium bromide 2 sprays intranasal TID-QID PRN 30 days lactulose 10 grams (15 mL) PO DAILY PRN leg brace (Knee Support Brace) SWETA-PULL LITE, LT, L lisinopril 5 mg PO DAILY metformin ER 500 mg PO DAILY omeprazole 20 mg PO DAILY ondansetron 4 mg PO Q6H PRN prednisone 40 mg (2 x 20 mg) PO DAILY simethicone (Gas Relief (simethicone)) 80 mg PO Q8H PRN sucralfate 1 g PO BID trazodone 25 mg PO DAILY triamcinolone acetonide 0.1% appl topical PFSH Medical History Other and unspecified hyperlipidemia Essential hypertension Family history of coronary artery disease Bilateral knee pain Chronic pain Fibromyalgia Surgical History History of cholecystectomy H/O section H/O lateral meniscus repair of left knee History of hysterectomy Family History Father History of open heart surgery Brother Hypertension Mother Colon cancer Social History Household Members Other:: son Housing: Apartment Alcohol intake: never Patient Tobacco Use Status: Never used Tobacco Current occupational status: disabled Current occupation: Right Handed Physical Exam Vital Signs: BMI result Body Mass Index 33.3 Const Other: Well-nourished well-developed very friendly female awake alert and oriented x3 in no acute distress Extrem Other: Bilateral lower extremity examination shows good capillary refill, no skin lesions noted, normal sensation light touch Bilateral knee examination shows minimal effusions, palpable crepitus with range of motion, pain with range of motion, no instability Office Procedures AMB Joint Injection/Aspiration Joint Injection/Aspiration Primary Site: left knee Prep: site was prepped using aseptic technique Injected: 60 mg of (Durolane viscosupplementation) and 1% plain lidocaine Procedure: The patient tolerated the procedure well Coding 23920 - Large joint Procedure code (CPT) selection complete AMB Joint Injection/Aspiration Joint Injection/Aspiration Primary Site: right knee Prep: site was prepped using aseptic technique Injected: 60 mg of (Durolane viscosupplementation) and 1% plain lidocaine Procedure: The patient tolerated the procedure well Coding 11569 - Large joint Procedure code (CPT) selection complete Results Reviewed Results Reviewed: X-rays of the patient's bilateral knees taken previously show joint space narrowing, subchondral sclerosis, no acute bony abnormalities Assessment & Plan Assessment & Plan (1) Osteoarthritis of left knee: Code(s): M17.12 - Unilateral primary osteoarthritis, left knee Category: Medical (2) Osteoarthritis of right knee: Code(s): M17.11 - Unilateral primary osteoarthritis, right knee Category: Medical (3) Bilateral knee pain: Code(s): M25.561 - Pain in right knee; M25.562 - Pain in left knee Category: Medical Plan Ms. Jose Barroso presents with bilateral knee pains due to osteoarthritis. The risks and benefits of bilateral knee Durolane viscosupplementation injections were discussed at length with the patient. The patient wished to proceed. She tolerated the injections well. She will continue with her home exercise program. She will contact me prior to her follow-up appointment in 3 months should any questions or concerns arise. Feel free to call me at any time should questions regarding her orthopedic management arise. I spent 20 minutes in reviewing the patient's records and imaging studies, seeing the patient and documenting in the medical record. Orders: Orders AMB Joint Injection/Aspiration Today M17.12 - Unilateral primary osteoarthritis, left knee AMB Joint Injection/Aspiration Today M17.11 - Unilateral primary osteoarthr itis, right knee Coding Level of Care Code Est Pt Level 3 (35180) Complex EM visit Add On G2211 Diagnoses Osteoarthritis of left knee M17.12 Osteoarthritis of right knee M17.11 Bilateral knee pain M25.561; M25.562 CPT Codes Coding - 35563 Large joint: 57067 - Large joint ([id number]) Coding - 48778 Large joint: 31124 - Large joint ([id number])
[2024-12-03 09:47] VITALS: BMI 33.3
== END 2024-12-03 10:04 | disposition home or self-care (01) ==
PROVIDERS: PCP General Practice; Visit Provider Orthopaedic Surgery
DX: M17.0 Bilateral primary osteoarthritis of knee (principal)
CPT/HCPCS: 20610; 99213

== ENCOUNTER → 2024-12-03 09:36 | Outpatient (BNVA) | payer OTHER, SELFPAY | PROVIDERS: PCP General Practice; Visit Provider Orthopaedic Surgery | DX: M17.0 Bilateral primary osteoarthritis of knee (principal); M25.561 Pain in right knee; M25.562 Pain in left knee | CPT/HCPCS: 20610; 99212; J2003; J7318 ==

== ENCOUNTER 2025-03-20 09:17 | Emergency (ER) | payer OTHER, SELFPAY ==
--- NOTE | ~2025-03-20 | XR_ITS ---
CLINICAL HISTORY: lung pain 2 view chest x-ray. Comparison: None Findings: Normal lung volumes. Lungs are clear. No pneumothorax or pleural effusion. Heart size normal. No passive venous congestion. No midline shift or tracheal deviation. No acute fracture. Impression: 1. No acute cardiopulmonary disease. This document has been electronically signed by: Naren Paul MD on 03/20/2025 10:36:06
--- NOTE | ~2025-03-20 | XR_ITS ---
CLINICAL HISTORY: midline tenderness 3 views lumbar spine Comparison: None Findings: No fractures or spondylolisthesis. Small anterior vertebral body osteophytes. Normal facets Disc spaces are maintained. Pedicles and transverse processes intact. Lordotic curvature is preserved. Normal bone mineralization. Post cholecystectomy clips Sacroiliac joints unremarkable. Impression: 1. No compression fractures or spondylolisthesis. This document has been electronically signed by: Naren Paul MD on 03/20/2025 10:37:57
--- NOTE | ~2025-03-20 | XR_ITS ---
CLINICAL HISTORY: constipation, lower abd pain 1 view abdomen Comparison: None Findings: Nonspecific bowel gas pattern. Normal stool quantity. No pneumoperitoneum or pneumatosis. No urinary tract calculi are present. Renal and psoas margins are normal. No organomegaly. No acute fracture. Osteitis pubis. Surgical clips right upper quadrant Impression: 1. Nonspecific bowel gas pattern. 2. No radiopaque calculi. This document has been electronically signed by: Naren Paul MD on 03/20/2025 10:38:25
[2025-03-20 09:24] VITALS: BP 131/76; PULSE 73; RESP 18; TEMP 36.9; O2SAT 99; BMI 32.2
--- NOTE | 2025-03-20 09:48 | ED_ITS ---
HPI - General Adult General Chief complaint: Back Pain/Injury Stated complaint: lower back pain Time Seen by Provider: 03/20/25 09:46 Source: patient, RN notes reviewed, old records reviewed and frameman Mode of arrival: ambulatory Limitations: language barrier History of Present Illness ED Provider: Rod HPI narrative: Patient is a 55-year-old female with history of DM on metformin, asthma, migraines, GERD, LEAH, HTN, fibromyalgia presenting to the emergency department with complaint of lung pain since last weekend, intermittent constipation, urinary frequency and urinating small amounts, lower abdominal pain, and lower back pain. Denies fevers. Has taken Tylenol, ibuprofen, used icy hot patches without relief. Denies fall or other trauma. Denies saddle anesthesia or micky wel/bladder incontinence. Denies cough. Denies concern for STIs. MD complaint: back pain Onset (ago): week(s) Related Data Home Medications ?Medication ?Instructions ?Recorded ?Confirmed atorvastatin 20 mg tablet 20 mg PO DAILY 09/14/20 12/03/24 baclofen 10 mg tablet 10 mg PO DAILY 09/14/20 12/03/24 lisinopril 5 mg tablet 5 mg PO DAILY 09/14/20 12/03/24 omeprazole 20 mg capsule,delayed 20 mg PO DAILY 09/14/20 12/03/24 release trazodone 50 mg tablet 25 mg PO DAILY 09/14/20 12/03/24 acetaminophen 650 mg 650 mg PO Q8H 02/13/22 12/03/24 tablet,extended release (Tylenol 8 Hour) gabapentin 100 mg capsule 100 mg PO DAILY 02/13/22 12/03/24 simethicone 80 mg chewable tablet 80 mg PO Q8H PRN gas 02/01/23 12/03/24 (Gas Relief (simethicone)) fluoxetine 20 mg capsule 40 mg PO QAM 02/13/23 12/03/24 buspirone 5 mg tablet 10 mg PO BID 02/12/24 12/03/24 sucralfate 1 gram tablet 1 g PO BID 02/12/24 12/03/24 triamcinolone acetonide 0.1 % appl topical 02/12/24 12/03/24 topical cream metformin 500 mg tablet,extended 500 mg PO DAILY 10/14/24 12/03/24 release 24 hr Previous Rx's ?Medication ?Instructions ?Recorded leg brace (Knee Support Brace) #1 ea 09/28/20 lactulose 10 gram/15 mL oral 10 g (15 mL) PO DAILY PRN 02/07/22 solution constipation #237 mL ipratropium bromide 42 mcg (0.06 2 spray intranasal TID-QID PRN 02/07/24 %) nasal spray allergy symptoms 30 days #15 mL benzonatate 200 mg capsule 200 mg PO TID PRN cough #15 caps 03/09/24 ibuprofen 600 mg tablet 600 mg PO Q6H PRN pain #30 tabs 03/09/24 ondansetron 4 mg disintegrating 4 mg PO Q6H PRN nausea and 07/09/24 tablet vomiting #14 tabs prednisone 20 mg tablet 40 mg (2 x 20 mg) PO DAILY #14 tabs 07/24/24 fluticasone furoate 200 1 ea inhalation DAILY #60 ea 11/11/24 mcg-vilanterol 25 mcg/dose inhalation powder (Breo Ellipta) albuterol sulfate 90 mcg/actuation 2 puff inhalation QID PRN for 11/23/24 aerosol inhaler (Ventolin HFA) wheezing #18 grams cyclobenzaprine 10 mg tablet 10 mg PO TID PRN muscle spasm #10 03/20/25 tabs lidocaine 5 % topical patch 1 patch topical DAILY #15 ea 03/20/25 Allergies Allergy/AdvReac Type Severity Reaction Status Date / Time shrimp [SHRIMP] Allergy Unknown UNKNOWN Verified 03/20/25 09:26 Review of Systems Review of Systems: As per HPI Yes all other systems are reviewed and are negative Constitutional: Constitutional: Reports as per HPI PMFSH Past Medical History Medical History Other and unspecified hyperlipidemia Essential hypertension Family history of coronary artery disease Bilateral knee pain Chronic pain Fibromyalgia Surgical History History of cholecystectomy H/O section H/O lateral meniscus repair of left knee History of hysterectomy Family History Family History Father History of open heart surgery Brother Hypertension Mother Colon cancer Social History Social History Household Members Other:: son Housing: Apartment Alcohol intake: never Patient Tobacco Use Status: Never used Tobacco Advance Directives: No Advance Directives Information Provided: No Current occupational status: disabled Current occupation: Right Handed Physical Exam ED Vital Signs: Vital Signs - 24 hr 03/20/25 09:24 Temperature 98.4 F Pulse Rate 73 Respiratory Rate 18 Blood Pressure 131/76 Pulse Oximetry 99 Oxygen Delivery Method Room Air BMI result Body Mass Index 32.2 Vital signs have been reviewed and appear to be correct. Blood pressure normal. Heart rate normal. Respiratory rate normal. Temperature normal. Oxygen saturation normal. Const General: cooperative, healthy appearing and no acute distress Orientation/consciousness: oriented to person, oriented to place, oriented to time and patient oriented x3 Limitations: no limitations HENMT Head: Yes normocephalic and Yes atraumatic Ears: external ears normal General nose exam: Normal external nose present Face and sinus: Yes face symmetric Mouth: oropharynx normal and moist mucous membranes Throat: Yes uvula midline Eyes Pupils: Equal, round and reactive pupils present Neck Neck: Yes normal visual inspection and Yes supple Resp Effort & Inspection: normal respiratory effort and able to speak in complete sentences Auscultation: clear to auscultation bilaterally Cardio Rate: regular rate Rhythm: regular rhythm Heart sounds: S1 normal heart sound present and S2 normal heart sound present GI Palpation (GI): Soft to palpation and nontender Auscultation: normoactive bowel sounds General: Yes no CVA tenderness Back/Spine/Pelvis Back: no CVA tenderness Thoracic/Lumbar Spine: thoracic and lumbar spine normal to inspection, thoraco- lumbar ROM normal, pain with thoraco-lumbar ROM, paraspinal muscle tenderness bilaterally in the upper lumbar, No thoracic spinal tenderness and lumbar spinal tenderness at L1 and at L2 Skin General skin exam: elasticity normal and turgor normal Neuro General: oriented to person, oriented to place, oriented to time, patient oriented x3, moves all extremities, no focal motor deficits and CN's II-XI intact bilaterally Cranial nerves: Yes Equal, round and reactive pupils present Cognition (Neuro): normal cognition Extrem General: Yes full ROM, Yes no pedal edema and Yes no calf tenderness Psych Mental Status: mental status grossly normal Affect: normal affect Thought process: Normal thought process present Medications Administered Discontinued Medications Generic Name Dose Route Start Last Admin Trade Name Freq PRN Reason Stop Dose Admin Cyclobenzaprine HCl 10 mg 04/26/25 10:11 03/20/25 10:31 Cyclobenzaprine Hcl 10 Mg Tablet PO 03/20/25 10:12 Not Given ONCE ONE Ketorolac Tromethamine 30 mg 03/20/25 10:11 03/20/25 10:31 Ketorolac Tromethamine 30 Mg/Ml Vial IM 03/20/25 10:12 30 mg ONCE ONE Administration Medical Decision Making Medical Decision Making [facility] Narrative: Patient is a 55-year-old female with history of asthma, migraines, GERD, LEAH, HTN, fibromyalgia presenting to the emergency department with complaint of lung pain since last weekend, intermittent constipation, urinary frequency and urinating small amounts, lower abdominal pain, and lower back pain. On exam patient is awake, A+Ox3, VS WNL, afebrile, normal neurological exam without focal deficits, physical exam findings as above. Given reported symptoms and physical exam findings, initial differential includes but is not limited to UTI, viral illness, Covid, flu, lumbar strain, medication side effect (metformin). Less likely pneumonia but will obtain CXR. Urinalysis is without evidence of infection. Viral serology negative. UA without evidence of infection. X-ray chest notable for no evidence of pneumonia, KUB without evidence of obstruction or significant constipation, lumbar x-ray without evidence of fracture or subluxation. My interpretation is in agreement with the radiologist's interpretation. Patient reports good improvement in pain after medications given in the ED. Results discussed with patient and all questions answered. Wi ll treat back pain with Flexeril and lidocaine patches. Advised patient to follow up with PCP. Return precautions discussed. Patient verbalized understanding of and agreement with plan. In-person racehorse trainer was utilized for all interactions, assessments, and discussions. Differential Diagnosis Differential Diagnoses: The differential diagnosis associated with the presentation includes As per [facility] Admission/Observation Consideration of admission/observation: Escalation of care including admission/observation considered Patient would have been admitted to the hospital had their work up had any findings where hospital admission was appropriate and their clinical presentation warranted hospital admission. Lab Data [facility] Lab Attestation statement: I reviewed the patient's lab results. As per [facility] Labs: Lab Results 03/20/25 03/20/25 Range/Units 09:45 10:18 Urine Color Yellow Urine Appearance Clear Urine pH 6.5 (5.0-9.0) Ur Specific [place] <= 1.005 (1.005-1.025) Urine Protein Negative (Neg-Trace) mg/dL Urine Glucose (UA) Negative (Negative) mg/dL Urine Ketones Negative (Negative) mg/dL Urine Blood Negative (Negative) Urine Nitrite Negative (Negative) Ur Leukocyte Esterase Negative (Negative) Influenza Type A (PCR) NEGATIVE (Negative) Influenza Type B (PCR) NEGATIVE (Negative) RSV RNA Qual (PCR) NEGATIVE (Negative) SARS-CoV-2 RNA (RT-PCR) NEGATIVE (Negative) Independent Interpretation I performed an independent interpretation of an: Plain X-Ray Interpretation: X-ray chest notable for no evidence of pneumonia, KUB without evidence of obstruction or significant constipation, lumbar x-ray without evidence of fracture or subluxation. Radiology Impression Discussion of test interpretation with radiology: I have reviewed the radiologist's reading. Radiologist Impression: 2 view chest x-ray. Comparison: None Findings: Normal lung volumes. Lungs are clear. No pneumothorax or pleural effusion. Heart size normal. No passive venous congestion. No midline shift or tracheal deviation. No acute fracture. Impression: 1. No acute cardiopulmonary disease. 3 views lumbar spine Comparison: None Findings: No fractures or spondylolisthesis. Small anterior vertebral body osteophytes. Normal facets Disc spaces are maintained. Pedicles and transverse processes intact. Lordotic curvature is preserved. Normal bone mineralization. Post cholecystectomy clips Sacroiliac joints unremarkable. Impression: 1. No compression fractures or spondylolisthesis. 1 view abdomen Comparison: None Findings: Nonspecific bowel gas pattern. Normal stool quantity. No pneumoperitoneum or pneumatosis. No urinary tract calculi are present. Renal and psoas margins are normal. No organomegaly. No acute fracture. Osteitis pubis. Surgical clips right upper quadrant Impression: 1. Nonspecific bowel gas pattern. 2. No radiopaque calculi. External Record Review External record reviewed: Inpatient record, Office record and Outpatient record Prescription Management I considered prescription management with: Pain Medication and Other Critical Care Time Critical Care Time Critical Care Time: Yes Total Critical Care Time: 36 Attestation: I have personally provided critical care time exclusive of time spent on separately billable procedures. Time includes review of lab data, radiology results, discussion with consultants, and monitoring for potential decompen sation. Intervention performed as documented. Discharge Plan Discharge Clinical Impression: Lumbar strain Patient Disposition: Home, Self-Care Instructions: Low Back Strain (ED) Additional Instructions: You were evaluated in the emergency department today for back pain. Your evaluation did not show signs of medical conditions requiring emergent intervention at this time. We recommended that you use ibuprofen or Tylenol per package directions every 6 hours as needed for pain. If necessary, you can alternate these medications so that you take one medication every 3 hours. For instance, at noon take ibuprofen, then at 3:00 p.m. take Tylenol, then at 6:00 p.m. take ibuprofen. You have been prescribed a muscle relaxer called Flexeril (cyclobenzaprine) which you may take every 8 hours as needed for spasms. Do not drive, drink alcohol, or operate heavy machinery while taking this as it can cause drowsiness. You have been prescribed 5% topical lidocaine patches which you can wear for up to 12 hours in a 24 hour period. Do not apply heat directly over the patches. Please schedule an appointment for follow-up with your primary care physician this week for further evaluation of your symptoms. Return to the emergency department if you experience worsening back pain, difficulty walking, fevers, numbness, tingling, incontinence, groin numbness or tingling, or any other concerning symptoms. Your urine did not show evidence of infection. Your x-ray did not show any blockages or excess stool in your colon. We recommend that you continue to use over the counter Miralax and follow up with your primary care provider as needed. Prescriptions: New lidocaine 5 % adhesive patch,medicated 1 patch topical DAILY Qty: 15 0RF Rx Instructions: leave on most painful area for up to 12 hrs cyclobenzaprine 10 mg tablet 10 mg PO TID PRN (Reason: muscle spasm) Qty: 10 0RF No Action (DME) Knee Support Brace [facility] See Rx Instructions .ROUTE .MEDSUPPLY Qty: 1 0RF Rx Instructions: [place], LT, L albuterol sulfate [Ventolin HFA] 90 mcg/actuation HFA aerosol inhaler 2 puff inhalation QID PRN (Reason: for wheezing) Qty: 18 6RF lactulose 10 gram/15 mL solution 10 g PO DAILY PRN (Reason: constipation) Qty: 237 0RF ondansetron 4 mg tablet,disintegrating 4 mg PO Q6H PRN (Reason: nausea and vomiting) Qty: 14 0RF benzonatate 200 mg capsule 200 mg PO TID PRN (Reason: cough) Qty: 15 0RF ibuprofen 600 mg tablet 600 mg PO Q6H PRN (Reason: pain) Qty: 30 0RF omeprazole 20 mg capsule,delayed release(DR/EC) 20 mg PO DAILY trazodone 50 mg tablet 25 mg PO DAILY baclofen 10 mg tablet 10 mg PO DAILY lisinopril 5 mg tablet 5 mg PO DAILY atorvastatin 20 mg tablet 20 mg PO DAILY buspirone 5 mg tablet 10 mg PO BID gabapentin 100 mg capsule 100 mg PO DAILY acetaminophen [Tylenol 8 Hour] 650 mg tablet extended release 650 mg PO Q8H fluoxetine 20 mg capsule 40 mg PO QAM simethicone [Gas Relief (simethicone)] 80 mg tablet,chewable 80 mg PO Q8H PRN (Reason: gas) triamcinolone acetonide 0.1 % cream topical sucralfate 1 gram tablet 1 g PO BID metformin 500 mg tablet extended release 24 hr 500 mg PO DAILY ipratropium bromide 42 mcg (0.06 %) spray,non-aerosol 2 spray intranasal TID-QID PRN (Reason: allergy symptoms) 30 Days Qty: 15 6RF Rx Instructions: administer into each nostril prednisone 20 mg tablet 40 mg PO DAILY Qty: 14 0RF Breo Ellipta 200-25 mcg/dose blister with device 1 ea inhalation DAILY Qty: 60 6RF Print Language: Sinhala
--- OUTSIDE RECORDS SUMMARY | 2025-03-20 09:55 | XMS_ITS | Encounter Summary ---
Author Organization [employer] Address [address] [place] [address] Care Team Providers Care Fork Truck Driver Name Role Phone Brooklyn Jalloh MD Primary Care Provider [phone] Encounter Details Date Type Department Care Team (Late st Contact Info) Description 08/25/2024 Orders Only [facility] [address] [place], [place] [phone] ProviderDipak MD Social History Tobacco Use Types Packs/Day Years Used Date Smoking Tobacco: Never Passive Smoke Exposure: Never Smokeless Tobacco: Never Alcohol Use Standard Drinks/Week Comments Never 0 (1 standard drink = 0.6 oz pur e alcohol) Depression Answer Date Recorded Patient Health Questionnaire-9 Score 5 03/16/2024 Patient Health Questionnaire-9 Score 5 03/16/2024 Last PHQ-9: Questionnaire Data Not on file 0 03/16/2024 Housing Stability Answer Date Recorded What is your housing situation today? I have stellajacques calles 03/05/[address] you li ve. Do you have problems with any of the following? None of the above 03/05/2024 Food Insecurity Answer Date Recorded Within the past 12 months, y ou worried that your food would run out before you got money to buy more: Never True 03/05/2024 Within the past 12 months,th e food you bought just didn't last and you didn't have enough money to get more: Never True 09/2024 Transportation Answer Date Recorded In the past 12 months, has l ack of transportation kept you from medical appts, meetings, work or from getting things needed for daily living? No 03/05/2024 Utilities Answer Date Recorded In the past 12 months, has t he [employer], gas, oil or water [employer] threatened to shut off services in your home? No 03/05/2024 Depression Answer Date Recorded Patient Health Questionnaire-2 Score 2 03/16/2024 Comments Unknown Sex and Gender Information Value Date Recorded Sex Assigned at Female 09/24/2022 10:32 AM EDT Legal Sex Female 10:32 AM EDT Gender Identity Female 09/24/2022 10:32 AM EDT Sexual Orientation Straight 09/24/2022 10 :32 AM EDT documented as of this encounter Plan of Treatment Upcoming Encounters Date Type Department Care Team (Late st Contact Info) Description 03/30/2025 11:30 AM EDT Office Visit [facility] [address] [place] [address] Sarika Jenkins CNM [address] [place] [address] 04/20/2025 10:00 AM EDT Office Visit [facility] [address] [place] [address] Gage Montano 05/07/2025 11:15 AM EDT Office Visit [facility] [address] [place] [address] Brooklyn Jalloh MD [address] [place] [phone] documented as of this encounter Procedures Procedure Name Priority Date/Time Associated Diagnosis Comments MAMMOGRAPHY Routine 08/16/2024 11:24 AM EDT documented in this encounter Results * Mammography (08/16/2024 11:24 AM EDT) Mammogram BIRADS 2 Normal, Abnormal, BIRADS 1 , BIRADS 2 Anatomical Region Laterality Modality Other us Historical Provider HEALTH MAINTENANCE Edited Result - Final documented in this encounter Visit Diagnoses Not on filedocumented in this encounter Additional Health Concerns Assessment Noted Time PHQ-9 Depression Total Score: 5 03/16/20 24 11:45 AM EDT documented as of this encounter Care Teams Fork Truck Driver Relationship Specialty Start Date End Date Brooklyn Jalloh MD [address] [place] [address] PCP - General Family Medicine 07/17/21 documented as of this encounter
--- OUTSIDE RECORDS SUMMARY | 2025-03-20 09:55 | XMS_ITS | Encounter Summary ---
Author Organization [employer] Address [address] [place] [address] Care Team Providers Care Fabric Lay Out Worker Name Role Phone Brooklyn Jalloh MD Primary Care Provider [phone] Reason for Visit * Reason Onset Date Comments triage 03/06/2023 Encounter Details Date Type Department Care Team ([facility] st Contact Info) Description 03/06/2023 Telephone [facility] [address] [place], [place] [phone] Brooklyn Jalloh MD [address] [place], [place] [phone] triage Social History Tobacco Use Types Packs/Day Years Used Date Smoking Tobacco: Never Passive Smoke Exposure: Never Smokeless Tobacco: Never Alcohol Use Standard Drinks/Week Comments Never 0 (1 standard drink = 0.6 oz pur e alcohol) Depression Answer Date Recorded Patient Health Questionnaire-9 Score 6 02/04/2023 Depression Answer Date Recorded Patient Health Questionnaire-2 Score 2 02/04/2023 Comments Unknown Sex and Gender Information Value Date Recorded Sex Assigned at Female 09/24/2022 10:32 AM EDT Legal Sex Female 10:32 AM EDT Gender Identity Female 09/24/2022 10:32 AM EDT Sexual Orientation Straight 09/24/2022 10 :32 AM EDT COVID-19 Exposure Response Date Recorded In the last 10 days, have yo u been in contact with someone who was confirmed or suspected to have Coronavirus/COVID-19? No / Unsure 03/04/2023 2:59 PM EDT documented as of this encounter Miscellaneous Notes * Telephone Encounter - Jamila Schmitz RN - 03/07/2023 9:12 AM EDT Pt. Last seen by derm in March 2021, Preet reports pt. Would need a new referral to be seen for f/up * Telephone Encounter - Fany Kong RN - 03/06/2023 3:39 PM EDT triage call with [facility] Client Service And Consulting Manager ID [id number] Pt reports itchiness on face. Pt reports this has been for two days and has some red spots now. Pt has had this before in different areas of the body. Pt has seen preschool substitute teacher Cassie and jakob to help but doesn't know the name of the cream. Pt is offered to come to [facility] to be seen by provider but, declines. Pt wants only to have apt with preschool substitute teacher will send to PCP nurse team to fol low up with Pt. Protocol Used: Itching - Localized (Adult) Protocol-Based Disposition: Home Care Positive Triage Question: * Mild localized itching * All higher-acuity triage questions were negative Care Advice Discussed: * Reassurance and Education - Itching * Don't Scratch * Wash off Irritants * Ice for Itching That Gets Worse * Hydrocortisone Cream for Itching * Antihistamine for Itching * Antihistamine Medicines - Extra Notes and Warnings * Reasons To Call Back - Looks infected (e.g., spreading redness, red streak, pus) - Itching becomes severe - Itching lasts over 7 days - You become worse * Telephone Encounter - Ankur Villanueva - 03/06/2023 12:15 PM EDT Symptom: Itching - No Rash Outcome: Schedule an urgent appointment (within 4 hours) or talk to a nurse or provider soon Reason: Severe itching now The caller accepted this outcome speaks mauritian documented in this encounter Plan of Treatment Upcoming Encounters Date Type Department Care Team (Late st Contact Info) Description 03/30/2025 11:30 AM EDT Office Visit [facility] [address] [place] [address] Sarika Jenkins CNM [address] [place] [address] 04/20/2025 10:00 AM EDT Office Visit [facility] [address] [place] [address] Gage Montano 05/07/2025 11:15 AM EDT Office Visit [facility] [address] [place] [address] Brooklyn Jalloh MD [address] [place] [address] documented as of this encounter Visit Diagnoses Not on filedocumented in this encounter Additional Health Concerns Assessment Noted Time PHQ-9 Depression Total Score: 6 02/05/20 23 11:27 AM EDT documented as of this encounter Care Teams Fabric Lay Out Worker Relationship Specialty Start Date End Date Brooklyn Jalloh MD [address] [place] [phone] PCP - General Family Medicine 07/17/21 documented as of this encounter
--- OUTSIDE RECORDS SUMMARY | 2025-03-20 09:55 | XMS_ITS | Encounter Summary ---
Author Organization [employer] Address [address] [place] [address] Care Team Providers Care Creel Selector Name Role Phone Brooklyn Jalloh MD Primary Care Provider [phone] Encounter Details Date Type Department Care Team (Late st Contact Info) Description 03/07/2023 Orders Only [facility] [address] [place] [phone] Brooklyn Jalloh MD [address] [place] [phone] Rash of face (Primary Dx) Social History Tobacco Use Types Packs/Day Years [...] PM EDT documented as of this encounter Plan of Treatment Upcoming Encounters Date Type Department Care Team (Late Contact Info) Description 03/30/2025 11:30 AM EDT Office Visit [facility] [address] [place] [address] Sarika Jenkins CNM [address] [place] [address] 04/20/2025 10:00 AM EDT Office Visit [facility] [address] [place] [address] Gage Montano 05/07/2025 11:15 AM EDT Office Visit [facility] [address] [place] [address] Brooklyn Jalloh MD [address] [place] [address] documented as of this encounter Visit Diagnoses Diagnosis Rash of face- Primary documented in this encounter Additional Health Concerns Assessment Noted Time PHQ-9 Depression Total Score: 6 02/05/20 23 11:27 AM EDT documented as of this encounter Care Teams Creel Selector Relationship Specialty Start Date End Date Brooklyn Jalloh MD [address] [place] [phone] PCP - General Family Medicine 07/17/21 documented as of this encounter
--- OUTSIDE RECORDS SUMMARY | 2025-03-20 09:55 | XMS_ITS | Encounter Summary ---
Author Organization [employer] Address [address] [facility] 7t [place] [address] Care Team Providers Care Medical Transcription Supervisor Name Role Phone Brooklyn Jalloh MD Primary Care Provider [phone] Reason for Referral * (Routine) - Closed Specialty Diagnoses / Procedures Referred By Contac t Referred To Contact Diagnoses Benign breast disease Procedures BI Mammogram Diagnostic same day Diagnostic same/ Day Right Brooklyn Jalloh MD [address] [place] [address] Phone: tel: fax: Referral ID Status Reason Start Date Expiration Date Visits Re quested Visits Authorized [id number] Closed 03/20/2023 09/16/2023 1 1 Encounter Details Date Type Department Care Team (Late st Contact Info) Description 03/20/2023 Orders Only [facility] MEDICINE [address] [place] [address] Brooklyn Jalloh MD [address] [place] [address] Benign breast disease (Primary Dx) Social History Tobacco Use Types [...] suspected to have Coronavirus/COVID-19? No / Unsure 03/18/2023 11:22 AM EDT documented as of this encounter Plan of Treatment Upcoming Encounters Date Type Department Care Team (Late st Contact Info) Description 03/30/2025 11:30 AM EDT Office Visit [facility] MEDICINE [address] [place] [address] Sarika Jenkins CNM [address] [place] [address] 04/20/2025 10:00 AM EDT Office Visit [facility] ADULT DENTAL [address] [place] [address] Gage Montano 05/07/2025 11:15 AM EDT Office Visit [facility] MEDICINE [address] [place] [address] Brooklyn Jalloh MD [address] [place] [address] Scheduled Orders Name Type Priority Associated Diagnoses Orde r Schedule BI Mammogram Diagnostic same day Diagnostic same/ Day Right Imaging Routine Benign breast disease Expected: 03/21/2023, Expires: 05/20/2024 documented as of this encounter Visit Diagnoses Diagnosis Benign breast disease- Primary Unspecified benign mammary dysplasia documented in this encounter Additional Health Concerns Assessment Noted Time PHQ-9 Depression Total Score: 6 02/05/20 23 11:27 AM EDT documented as of this encounter Care Teams Medical Transcription Supervisor Relationship Specialty Start Date End Date Brooklyn Jalloh MD [address] [place] [address] PCP - General Family Medicine 07/17/21 documented as of this encounter
--- OUTSIDE RECORDS SUMMARY | 2025-03-20 09:55 | XMS_ITS | Encounter Summary ---
Author Organization [employer] Address [address] [facility] [address] 7t [place] [address] Care Team Providers Care Neighborhood Service Center Director Name Role Phone Brooklyn Jalloh MD Primary Care Provider [phone] Reason for Visit * Reason Onset Date Comments Med Refill 02/04/2023 Encounter Details Date Type Department Care Team ([facility] st Contact Info) Description 02/04/2023 Telephone [facility] MEDICINE [address] [place], [place] [phone] Brooklyn Jalloh MD [address] [place], [place] [phone] Med Refill Social History Tobacco Use Types Packs/Day Years [...] suspected to have Coronavirus/COVID-19? No / Unsure 02/07/2023 10:33 AM EDT documented as of this encounter Miscellaneous Notes * Telephone Encounter - Georgette Higgins LPN - 02/04/2023 3:33 PM EDT Medications were sent to [facility] today 02/04/23. * Telephone Encounter - Ankur Rich - 02/04/2023 3:01 PM EDT Tc from pt requesting med refill Prednisone 20 mg Ibuprofen 800 mg Doxycycline 100 mg documented in this encounter Plan of Treatment Upcoming Encounters Date Type Department Care Team (Late st Contact Info) Description 03/30/2025 11:30 AM EDT Office Visit [facility] MEDICINE [address] [place] [address] Sarika Jenkins CNM [address] [place] [address] 04/20/2025 10:00 AM EDT Office Visit [facility] CHC ADULT DENTAL [address] [place] [address] Gage Montano 05/07/2025 11:15 AM EDT Office Visit [facility] MEDICINE [address] [place] [address] Brooklyn Jalloh MD [address] [place] [address] documented as of this encounter Visit Diagnoses Not on filedocumented in this encounter Additional Health Concerns Assessment Noted Time PHQ-9 Depression Total Score: 6 02/05/20 11:27 AM EDT documented as of this encounter Care Teams Neighborhood Service Center Director Relationship Specialty Start Date End Date Brooklyn Jalloh MD [address] [place] [address] PCP - General Family Medicine 07/17/21 documented as of this encounter
--- OUTSIDE RECORDS SUMMARY | 2025-03-20 09:55 | XMS_ITS | Encounter Summary ---
Author Organization [employer] Address [address] [facility] [address] 7[address] [place] [address] Care Team Providers Care Channel Lip Wetter Name Role Phone Brooklyn Jalloh MD Primary Care Provider [phone] Reason for Visit * Reason Onset Date Comments Durable Medical Equipment 02/07/2023 Encounter Details Date Type Department Care Team ([facility] st Contact Info) Description 02/07/2023 Telephone [facility] MEDICINE [address] [place], [place] [phone] Brooklyn Jalloh MD [address] [place], [place] [phone] Durable Medical Equipment Social History Tobacco Use Types Packs/Day Years [...] encounter Miscellaneous Notes * Telephone Encounter - Machelle Torres - 02/07/2023 11:56 AM EDT Please review message below. Script for walker is ready for signature, please add it to chart note of 02/04 for insurance purposes. Thank you * Telephone Encounter - Trice Lucero - 02/07/2023 11:27 AM EDT Tc from pt requesting status on walker please contact pt at [phone]. documented in this encounter Plan of Treatment Upcoming Encounters Date Type Department Care Team (Late st Contact Info) Description 03/30/2025 11:30 AM EDT Office Visit [facility] MEDICINE [address] [place] [address] Sarika Jenkins CNM [address] [place] [address] 04/20/2025 10:00 AM EDT Office Visit [facility] CHC ADULT DENTAL [address] [place] [address] Gage Montano 05/07/2025 11:15 AM EDT Office Visit [facility] MEDICINE [address] [place] [address] Brooklyn Jalloh MD [address] [place] [address] documented as of this encounter Visit Diagnoses Not on filedocumented in this encounter Additional Health Concerns Assessment Noted Time PHQ-9 Depression Total Score: 6 02/05/20 23 11:27 AM EDT documented as of this encounter Care Teams Channel Lip Wetter Relationship Specialty Start Date End Date Brooklyn Jalloh MD [address] [place] [address] PCP - General Family Medicine 07/17/21 documented as of this encounter
--- OUTSIDE RECORDS SUMMARY | 2025-03-20 09:55 | XMS_ITS | Encounter Summary ---
Author Organization [email or web address] Address [address] [facility] [address] 7[address] [place] [address] Care Team Providers Care Didactic Instructor Name Role Phone Brooklyn Jalloh MD Primary Care Provider [phone] Encounter Details Date Type Department Care Team (Late st Contact Info) Description 08/26/2024 Orders Only [facility] MEDICINE [address] [place], [place] [phone] Brooklyn Jalloh MD [address] [place], [place] [phone] Elevated alkaline phosphatase level (Primary Dx) Social History Tobacco Use Types [...] is your housing situation today? I have stella calles 03/05/[address] you [...] the past 12 months, has t he electric, gas, oil or water company threatened to shut off services in your [...] Description 03/30/2025 11:30 AM EDT Office Visit [facility] MEDICINE [address] [place] [address] Sarika Jenkins CNM [address] [place] [address] 04/20/2025 10:00 AM EDT Office Visit [facility] CHC ADULT DENTAL [address] [place] [address] Gage Montano 05/07/2025 11:15 AM EDT Office Visit [facility] MEDICINE [address] [place] [address] Brooklyn Jalloh MD [address] [place] [address] Scheduled Orders Name Type Priority Associated Diagnoses Orde r Schedule Mitochondrial Antibody with Reflex to Titer Lab Routine Elevated alkaline phosphatase level Expected: 08/28/2024 (Approximate), Expires: 08/28/2025 documented as of this encounter Visit Diagnoses Diagnosis Elevated alkaline phosphatase level- Primary documented in this encounter Additional Health Concerns Assessment Noted Time PHQ-9 Depression Total Score: 5 03/16/20 24 11:45 AM EDT documented as of this encounter Care Teams Didactic Instructor Relationship Specialty Start Date End Date Brooklyn Jalloh MD [address] [place] [phone] PCP - General Family Medicine 07/17/21 documented as of this encounter
--- OUTSIDE RECORDS SUMMARY | 2025-03-20 09:55 | XMS_ITS | Encounter Summary ---
Author Organization [employer] Address [address] [facility] [facility] [address] 7[address] [place] [address] Care Team Providers Care Cloud Architect Name Role Phone Brooklyn Jalloh MD Primary Care Provider [phone] Reason for Visit * Reason Onset Date Comments Medication Question 08/20/2024 Results 08/20/2024 Encounter Details Date Type Department Care Team ([facility] st Contact Info) Description 08/20/2024 Telephone [facility] MEDICINE [address] [place], [place] [phone] Brooklyn Jalloh MD [address] [place], [place] [phone] Medication Question; Results Social History Tobacco Use Types Packs/Day Years [...] encounter Miscellaneous Notes * Telephone Encounter - Monie Cardona RN - 08/26/2024 2:40 PM EDT TC placed to pt [phone] via [employer] in regards to below message. RN informed pt that PCP sent refill of Excedrin migraine. RN also informed pt that blood work show elevated alk phosdue to liver sources. RN inquired if pt would like more lab work for the liver. Pt agrees. RN also i nformed pt that shoulder xray has not resulted yet and she will be contacted when it is. Pt verbalizes understanding and agrees to plan. Pt to f/u PRN. * Telephone Encounter - Jovita Gallagher RN - 08/20/2024 3:47 PM EDT Noted. Per Robert Applebaum MD, shoulder Xray performed on 08/11/24 however interpretation report not yet available. Pt advised once results are received, ordering provider reviews them and pt will receive a call w/ results. Pt verbalized understanding. Pt advised in regards to BW results, a message would be sent to the provider to review BW and pt will receive a call once provider reviews BW. Pt verbalized understanding. Pt also requesting yuureov-pjaveckxdzlqd-apiehgrg medication be Rx'd again for her migraines. Pt reports she last p/u medication on 02/18/24 for a 2 month supply. Pt reports the providers name on the bottle is Georgette Teenaramiro . RN unable to find active RX on medication list however ap pears discontinued RX on medlist from 02/26/23. Pt advised RN will send message to PCP to review if PCP can RX medication. Pt verbalized understanding. Pt to f/u PRN. * Telephone Encounter - Delta Moralez - 08/20/2024 10:06 AM EDT TC from pt requesting call back regarding Results. Type of results: Xray Date when done: 08/10/24 Facility: Walk-In - Type of results: Labs Date when done: 08/18/24 Facility: [facility] Labs Pt is also requesting Eletriptan medication for migraines but business writer did not see medication on med list. Please contact pt at [phone]. (Sri Lankan Speaker) documented in this encounter Plan of Treatment Upcoming Encounters Date Type Department Care Team (Late st Contact Info) Description 03/30/2025 11:30 AM EDT Office Visit [facility] MEDICINE [address] [place] [address] Sarika Jenkins CNM [address] [place] [address] 04/20/2025 10:00 AM EDT Office Visit [facility] CHC ADULT DENTAL [address] [place] [address] Gage Montano 05/07/2025 11:15 AM EDT Office Visit [facility] MEDICINE [address] [place] [address] Brooklyn Jalloh MD [address] [place] [address] documented as of this encounter Visit Diagnoses Not on filedocumented in this encounter Additional Health Concerns Assessment Noted Time PHQ-9 Depression Total Score: 5 03/16/20 24 11:45 AM EDT documented as of this encounter Care Teams Cloud Architect Relationship Specialty Start Date End Date Brooklyn Jalloh MD [address] [place] [address] PCP - General Family Medicine 07/17/21 documented as of this encounter
--- OUTSIDE RECORDS SUMMARY | 2025-03-20 09:55 | XMS_ITS | Encounter Summary ---
Author Organization [employer] Address [address] [facility] [facility] [address] 7[address] [place] [address] Care Team Providers Care Etl Database Developer Name Role Phone Brooklyn Jalloh MD Primary Care Provider [phone] Reason for Visit * Reason Onset Date Comments Referral 08/05/2024 Encounter Details Date Type Department Care Team ([facility] st Contact Info) Description 08/05/2024 Telephone [facility] MEDICINE [address] [place], [place] [phone] Brooklyn Jalloh MD [address] [place], [place] [phone] Referral Social History Tobacco Use Types Packs/Day Years [...] encounter Miscellaneous Notes * Telephone Encounter - Federico Walker - 08/05/2024 10:41 AM EDT Tc from patient calling to request the orders for the Bi mammogram and the US of the breast to be sent to [facility] Address: [address] [place] [address] Fax- [phone] documented in this encounter Plan of Treatment Upcoming Encounters Date Type Department Care Team (Late st Contact Info) Description 03/30/2025 11:30 AM EDT Office Visit [facility] MEDICINE [address] [place] [address] Sarika Jenkins CNM [address] [place] [address] 04/20/2025 10:00 AM EDT Office Visit [facility] CHC ADULT DENTAL [address] [place] [address] Gage Montano 05/07/2025 11:15 AM EDT Office Visit [facility] MEDICINE [address] [place] [address] Brooklyn Jalloh MD [address] [place] [address] documented as of this encounter Visit Diagnoses Not on filedocumented in this encounter Additional Health Concerns Assessment Noted Time PHQ-9 Depression Total Score: 5 03/16/20 24 11:45 AM EDT documented as of this encounter Care Teams Etl Database Developer Relationship Specialty Start Date End Date Brooklyn Jalloh MD [address] [place] [address] PCP - General Family Medicine 07/17/21 documented as of this encounter
--- OUTSIDE RECORDS SUMMARY | 2025-03-20 09:55 | XMS_ITS | Encounter Summary ---
Author Organization [employer] Address [address] [facility] [address] 7t [place] [address] Care Team Providers Care Lead Fire Protection Engineer Name Role Phone Brooklyn Jalloh MD Primary Care Provider [phone] Encounter Details Date Type Department Care Team (Late Contact Info) Description 02/15/2023 Orders Only [facility] MEDICINE [address] [place], [place] [phone] Brooklyn Jalloh MD [address] [place] [address] Ingrown toenail (Primary Dx) Social History Tobacco Use Types [...] 11:30 AM EDT Office Visit [facility] MEDICINE [address] [place] [address] Sarika Jenkins CNM [address] [place] [address] 04/20/2025 10:00 AM EDT Office Visit [facility] CHC ADULT DENTAL [address] [place] [address] Gage Montano 05/07/2025 11:15 AM EDT Office Visit [facility] MEDICINE [address] [place] [address] Brooklyn Jalloh MD [address] [place] [address] documented as of this encounter Visit Diagnoses Diagnosis Ingrown toenail- Primary Ingrowing nail documented in this encounter Additional Health Concerns Assessment Noted Time PHQ-9 Depression Total Score: 6 02/05/20 23 11:27 AM EDT documented as of this encounter Care Teams Lead Fire Protection Engineer Relationship Specialty Start Date End Date Brooklyn Jalloh MD [address] [place] [address] PCP - General Family Medicine 07/17/21 documented as of this encounter
--- OUTSIDE RECORDS SUMMARY | 2025-03-20 09:56 | XMS_ITS | Clinical Summary ---
Author Organization [address] [facility] Address [address] [place] [address] Phone Care Team Providers Care Study Director Name Role Phone Brooklyn Jalloh MD Primary Care Provider [phone] Allergies Active Allergy Reactions Criticality Noted Date Comments Other 07/02/2023 Seafood Medications ketoconazole (NIZORAL) 2 % cream Apply cream to the affected areas of the bottom and top of feet twice daily 08/31/2024 Active chlorhexidine (Betasept Surgical Scrub) 4 % external liquid USE DIRECTED TO CLEAN FEET TWICE DAILY DIRECTED 02/14/2024 Active Encounters Date Type Department Care Team Description 02/11/2025 10:30 AM EDT Office Visit [facility] [place] [address] [facility] [address] [place] [phone] Scot Durant DPM Pain in toes of both feet (Primary Dx); Tinea pedis of both feet; Lumbosacral radiculopathy; Dermatophytosis, nail from Last 3 Months Social History Tobacco Use Types Packs/Day Years Used Date Smoking Tobacco: Never Assessed Comments Unknown Sex and Gender Information Value Date Recorded Sex Assigned at Not on file Legal Sex Female 8:45 PM EST Gender Identity Not on file Sexual Orientation Not on file Last Filed Vital Signs Vital Sign Reading Time Taken Comments Blood Pressure - - Pulse - - Temperature - - Respiratory Rate - - Oxygen Saturation - - Inhaled Oxygen Concentration - - Weight 94.3 kg (208 lb) 08/31/2024 10:52 AM EDT Height 165.1 cm (5' 5 ) 04/01/2024 10:59 AM EDT Body Mass Index 34.61 04/01/2024 10:59 AM EDT Plan of Treatment Upcoming Encounters Date Type Department Care Team ([facility] st Contact Info) Description 04/15/2025 11:00 AM EDT Office Visit [facility] [place] [address] [facility] [address] [place] [phone] Scot Durant, DPGirish [address] [facility] [address] [place] [address] Health Maintenance Due Date Last Done Comments Breast Cancer Screening 1970 Pneumococcal Vaccine: 50+ Years (1 of 2 - PCV) 02/25/1987 Pneumococcal Vaccine: Pediatrics (0 to 5 Years) and At-Risk Patients (6 to 64 Years) (1 of 2 - PCV) 02/25/1987 Cervical Cancer Screening: Pap Smear 02/25/1989 Colorectal Cancer Screening: Colonoscopy 12/20/2023 Medicare Annual Wellness Visit 12/20/2023 Social Influencers of Health Screening 12/20/2023 COVID-19 Vaccine () 07/26/2024 11/07/2021, 03/29/2021, 03/01/2021 Depression Screening 03/16/2025 03/16/2024 Hypertension/CHF/CAD Annual BMP Blood Test 08/31/2025 08/31/2024, 08/31/2024 Cholesterol Screening (Lipid Panel) 10/11/2027 10/11/2022, 02/21/2021 DTaP,Tdap,and Td Vaccines (2 - Td or Tdap) 12/23/2027 12/23/2017 Hepatitis B Vaccines Completed 12/18/2018, 02/17/2018, 12/23/2017 Zoster Vaccines Completed 05/31/2022, 03/30/2022 Hepatitis A Vaccines Aged Out 08/23/2023 No long er eligible based on patient's age to complete this topic HIV Screening Completed 08/18/2024, 08/18/2024 Hepatitis C Screening Completed 08/18/2024, 024 Influenza Vaccine Completed 09/28/2024, , 09/17/2022, Additional history exists HIB Vaccines Aged Out No longer eligi ble based on patient's age to complete this topic HPV Vaccines Aged Out No longer eligi ble based on patient's age to complete this topic IPV Vaccines Aged Out No longer eligi ble based on patient's age to complete this topic MMR Vaccines Aged Out No longer eligi ble based on patient's age to complete this topic Meningococcal ACWY Vaccine Aged Out N o longer eligible based on patient's age to complete this topic Meningococcal B Vaccine Aged Out No l onger eligible based on patient's age to complete this topic RSV Immunization Patients Under 20 months Aged Out No longer eligible based on patient's age to complete this topic Varicella Vaccines Aged Out No longer eligible based on patient's age to complete this topic Procedures Procedure Name Priority Date/Time Associated Diagnosis Comments ANNUAL BMP BLOOD TEST Routine 08/31/2024 HEPATITIS C SCREENING Routine 08/18/2024 HIV SCREENING Routine 08/18/2024 LIPID PANEL Routine 02/21/2021 from Last 3 Months or Most Recently Relevant to Health Maintenance Results * Annual BMP Blood Test (08/31/2024) Pathologist [facility] Annual BMP Blood Test abstracted Result [facility] HEALTH MAINTENANCE Final Result * HIV Screening (08/18/2024) [facility] HIV Screening abstracted Result [facility] HEALTH MAINTENANCE Final Result * Hepatitis C Screening (08/18/2024) [facility] Hepatitis C Screening abstracted Result [facility] Provider HEALTH MAINTENANCE Final Result * Lipid panel (02/21/2021) [facility] LDL/HDL Ratio 0 Comment:abstracted, no inter pretation Triglycerides 0 mg/dL Comment:abstracted, no inter pretation Cholesterol 0 mg/dL Comment:abstracted, no inter pretation HDL 0 mg/dL Comment:abstracted, no inter pretation LDL Cholesterol 0 mg/dL Comment:abstracted, no inter pretation Blood Venous blood specimen / Unknown Result [facility] Provider LAB BLOOD ORDERABLES Julianne l Result from Last 3 Months or Most Recently Relevant to Health Maintenance Insurance [employer] MEDICARE Member Subscriber Plan / Payer (Ef fective 2018-Present) Name:Machelle Wooten Relation to Subscriber:Self Name:Machelle Wooten Payer ID:[id number] Group ID:[id number] Type:Not on file Address: [place] [address] [address] [phone] Care Teams Study Director Relationship Specialty Start Date End Date Brooklyn Jalloh MD [address] [place] [address] PCP - General 09/12/22
--- OUTSIDE RECORDS SUMMARY | 2025-03-20 09:56 | XMS_ITS | Encounter Summary ---
Author Organization [employer] Address [address] [facility] [address] [place] [address] Care Team Providers Care Fire Tower Keeper Name Role Phone Brooklyn Jalloh MD Primary Care Provider [phone] Reason for Visit * Reason Onset Date Comments Appointment Request 03/19/2025 Encounter Details Date Type Department Care Team ([facility] st Contact Info) Description 03/19/2025 Telephone [facility] MEDICINE [address] [place], [place] [phone] Brooklyn Jalloh MD [address] [place], [place] [phone] Appointment Request Social History Tobacco Use Types Packs/Day Years Used Date Smoking Tobacco: Never Passive Smoke Exposure: Never Smokeless Tobacco: Never Alcohol Use Standard Drinks/Week Comments Never 0 (1 standard drink = 0.6 oz pur e alcohol) Alcohol Answer Date Recorded How often do you have a drink containing alcohol ? 1 02/04/2025 How many drinks containing a lcohol do you have on a typical day when you are drinking? 0 02/04/2025 How often do you have six or more drinks on one occasion? 0 02/04/2025 Depression Answer Date Recorded Patient Health Questionnaire-9 [...] Recorded Patient Health Questionnaire-2 Score 2 03/16/2024 Internet Access Answer Date Recorded Internet Access Q1 Yes 01/26/2025 Internet Access Q2 Not on file 01/26/2025 Comments Unknown Sex and Gender Information Value Date Recorded Sex Assigned at Female 09/24/2022 10:32 AM EDT Legal Sex Female 10:32 AM EDT Gender Identity Female 09/24/2022 10:32 AM EDT Sexual Orientation Straight 09/24/2022 10 :32 AM EDT documented as of this encounter Miscellaneous Notes * Telephone Encounter - Sapphire Brown - 03/19/2025 9:42 AM EDT Tc from pt requesting pap appointment with pcp. documented in this encounter Plan of Treatment Upcoming Encounters Date Type Department Care Team (Late st Contact Info) Description 03/30/2025 11:30 AM EDT Office Visit [facility] MEDICINE [address] [place] [address] Sarika Jenkins CNM [address] [place] [address] 04/20/2025 10:00 AM EDT Office Visit [facility] CHC ADULT DENTAL [address] [place] [address] Gage Montano 05/07/2025 11:15 AM EDT Office Visit [facility] MEDICINE [address] [place] [address] Brooklyn Jalloh MD [address] [place], [place] [phone] documented as of this encounter Visit Diagnoses Not on filedocumented in this encounter Additional Health Concerns Assessment Noted Time PHQ-9 Depression Total Score: 5 03/16/20 24 11:45 AM EDT documented as of this encounter Care Teams Fire Tower Keeper Relationship Specialty Start Date End Date Brooklyn Jalloh MD [address] [place] [address] PCP - General Family Medicine 07/17/21 documented as of this encounter
--- OUTSIDE RECORDS SUMMARY | 2025-03-20 09:56 | XMS_ITS | Encounter Summary ---
Author Organization [employer] Address [address] [facility] 7t [place] [address] Care Team Providers Care First Mate Name Role Phone Brooklyn Jalloh MD Primary Care Provider [phone] Reason for Referral * Consultation (Routine) - Closed Specialty Diagnoses / Procedures Referred By Contselvin t Referred To Contact Orthopaedic Surgery Diagnoses Primary osteoarthritis of both knees Brooklyn Jalloh MD [address] [place] [address] Phone: tel: fax: [facility] Orth[facility] [address] [place] [address] Phone: tel: Referral ID Status Reason Start Date Expiration Date V isits Requested Visits Authorized [id number] Closed Specialty Services Required 02/18/2024 02/17/2025 1 1 Encounter Details Date Type Department Care Team (Late st Contact Info) Description 02/18/2024 Orders Only [facility] MEDICINE [address] [place] [address] Brooklyn Jalloh MD [address] [place], [place] [phone] Primary osteoarthritis of both knees (Primary Dx) Social History Tobacco Use Types Packs/Day Years Used Date Smoking Tobacco: Never Passive Smoke Exposure: Never Smokeless Tobacco: Never Alcohol Use Standard Drinks/Week Comments Never 0 (1 standard drink = 0.6 oz pur e alcohol) Depression Answer Date Recorded Patient Health Questionnaire-9 Score 6 02/04/2023 Housing Stability Answer Date Recorded What is your housing situation today? I have stella sing 09/09/[address] you li ve. Do you have problems with any of the following? None of the above 09/09/2023 Food Insecurity Answer Date Recorded Within the past 12 months, y ou worried that your food would run out before you got money to buy more: Never True 09/09/2023 Within the past 12 months,th e food you bought just didn't last and you didn't have enough money to get more: Never True Transportation Answer Date Recorded In the past 12 months, has l ack of transportation kept you from medical appts, meetings, work or from getting things needed for daily living? No 09/09/2023 Utilities Answer Date Recorded In the past 12 months, has t he electric, gas, oil or water company threatened to shut off services in your home? No 09/09/2023 Depression Answer Date Recorded Patient Health Questionnaire-2 [...] 03/30/2025 11:30 AM EDT Office Visit [facility] MEDICINE [address] [place] [address] Sarika Jenkins CNM [address] [place] [address] 04/20/2025 10:00 AM EDT Office Visit [facility] CHC ADULT DENTAL [address] [place] [address] Gage Montano 05/07/2025 11:15 AM EDT Office Visit [facility] MEDICINE [address] [place] [address] Brooklyn Jalloh MD [address] [place] [address] Scheduled Referrals Name Type Priority Associated Diagnoses Orde r Schedule Referral to Orthopaedic Surgery Outpatient Referral Routine Primary osteoarthritis of both knees Expected: 02/18/2024 (Approximate), Expires: 02/17/2025 documented as of this encounter Procedures Procedure Name Priority Date/Time Associated Diagnosis Comments XR CHEST 2 VIEWS Routine 03/09/2024 2:08 PM EDT documented in this encounter Results * XR Chest 2 Views (03/09/2024 2:08 PM EDT) Anatomical Region Laterality Modality Chest Radiographic Zina ging 03/09/2024 2:08 PM EDT Narrative 03/09/2024 2:27 PM EDT ? [facility] ?[address] ?[place] [address] ?XRay Report ? Signed ? Patient: Machelle Wooten ?MR#: ?? [id number] ? : 1970 ?Acct:[id number] ? Age/Sex: 54 / F ?ADM Date: 03/09/24 ? Loc: HO.ED ? Attending Dr: ? Ordering Physician: Zack Lainez ?? Date of Service: 03/09/24 ?? Procedure(s): XR chest 2V ?? Accession Number(s): [id number] ? cc: Brooklyn Jalloh; Zack Lainez ? EXAMINATION: ?? XR CHEST ? CLINICAL INFORMATION: ?? Cough. ? COMPARISON: ?? Chest radiograph dated 03/10/2023. ? TECHNIQUE: ?? 2 views of the chest were obtained. ? FINDINGS: ?? The trachea is in normal anatomic position. Heart size is normal. The ?? lungs are clear. There is no pleural effusion or pneumothorax. No acute ?? osseous abnormality. ? XR/XR chest 2V ?? IMPRESSION: ?? Stable appearance of the heart and lungs. No active disease. ? Dictated By: ?Boyd Miller Jr DO ? Signed By: ?<Electronically signed by Boyd Miller Jr DO in OV> ?03/09/244 ? DD/ ? TD/TT: ? Consignee: CB ? Procedure Note Josselyn, Glenn - 03/09/2024 [facility] [address] [place] [address] XRay Report Signed Patient: Machelle WootenMR#: [id number] : 1970Acct:[id number] Age/Sex: 54 / FADM Date: 03/09/24 Loc: HO.ED Attending Dr: Ordering Physician: Zack Lainez Date of Service: 03/09/24 Procedure(s): XR chest 2V Accession Number(s): [id number] cc: Brooklyn Jalloh; Zack Lainez EXAMINATION: XR CHEST CLINICAL INFORMATION: Cough. COMPARISON: Chest radiograph dated 03/10/2023. TECHNIQUE: 2 views of the chest were obtained. FINDINGS: The trachea is in normal anatomic position. Heart size is normal. The lungs are clear. There is no pleural effusion or pneumothorax. No acute osseous abnormality. XR/XR chest 2V IMPRESSION: Stable appearance of the heart and lungs. No active disease. Dictated By: Boyd Miller Jr, DO Signed By: <Electronically signed by Boyd Miller Jr, DO inOV> 03/09/24 1424 DD/ 1408 TD/TT: Consignee: [facility] External Provider IMG XR PROCEDURES Edited Result - Final documented in this encounter Visit Diagnoses Diagnosis Primary osteoarthritis of both knees- Primary documented in this encounter Additional Health Concerns Assessment Noted Time PHQ-9 Depression Total Score: 6 02/05/20 23 11:27 AM EDT documented as of this encounter Care Teams First Mate Relationship Specialty Start Date End Date Brooklyn Jalloh MD [address] [place] [address] PCP - General Family Medicine 07/17/21 documented as of this encounter
--- OUTSIDE RECORDS SUMMARY | 2025-03-20 09:56 | XMS_ITS | Encounter Summary ---
Author Organization [employer] Address [address] [facility] [address] 7[address] [place] [address] Care Team Providers Care Fugitive Detective Name Role Phone Brooklyn Jalloh MD Primary Care Provider [phone] Encounter Details Date Type Department Care Team (Latest Contact Info) Description 06/27/[address] [facility] CONVERSIONS Dental, Provider, DDS Social History Tobacco Use Types Packs/Day Years [...] AM EDT Office Visit [facility] MEDICINE [address] [place] [address] Sarika Jenkins CNM [address] [place] [address] 04/20/2025 10:00 AM EDT Office Visit [facility] CHC ADULT DENTAL [address] [place] [address] Gage Montano 05/07/2025 11:15 AM EDT Office Visit [facility] MEDICINE [address] [place] [address] Brooklyn Jalloh MD [address] [place] [address] documented as of this encounter Visit Diagnoses Not on filedocumented in this encounter Care Teams Fugitive Detective Relationship Specialty Start Date End Date Brooklyn Jalloh MD [address] [place] [address] PCP - General Family Medicine 07/17/21 documented as of this encounter
--- OUTSIDE RECORDS SUMMARY | 2025-03-20 09:56 | XMS_ITS | Encounter Summary ---
Author Organization [employer] Address [address] [facility] [address] 7t [place] [address] Care Team Providers Care Metal Fabricating Shop Helper Name Role Phone Brooklyn Jalloh MD Primary Care Provider [phone] Encounter Details Date Type Department Care Team ([facility] st Contact Info) Description 03/19/2025 Orders Only [facility] MEDICINE [address] [place], [place] [phone] Brooklyn Jalloh MD [address] [place], [place] [phone] Social History Tobacco Use Types Packs/Day Years [...] Description 03/30/2025 11:30 AM EDT Office Visit [facility] MEDICINE [address] [place] [address] Sarika Jenkins CNM [address] [place] [address] 04/20/2025 10:00 AM EDT Office Visit [facility] CHC ADULT DENTAL [address] [place] [address] Gage Montano 05/07/2025 11:15 AM EDT Office Visit [facility] MEDICINE [address] [place] [address] Brooklyn Jalloh MD [address] [place] [address] documented as of this encounter Visit Diagnoses Not on filedocumented in this encounter Additional Health Concerns Assessment Noted Time PHQ-9 Depression Total Score: 5 03/16/20 24 11:45 AM EDT documented as of this encounter Care Teams Metal Fabricating Shop Helper Relationship Specialty Start Date End Date Brooklyn Jalloh MD [address] [place] [address] PCP - General Family Medicine 07/17/21 documented as of this encounter
--- OUTSIDE RECORDS SUMMARY | 2025-03-20 09:56 | XMS_ITS | Encounter Summary ---
Author Organization [employer] Address [address] [facility] [address] 7t [place] [address] Care Team Providers Care Crab Fisher Name Role Phone Brooklyn Jalloh MD Primary Care Provider [phone] Encounter Details Date Type Department Care Team ([facility] st Contact Info) Description 03/10/2024 Orders Only [facility] MEDICINE [address] [place], [place] [phone] Brooklyn Jalloh MD [address] [place], [place] [phone] Social History Tobacco Use Types Packs/Day Years [...] Description 03/30/2025 11:30 AM EDT Office Visit [facility] MEDICINE [address] [place] [address] Sarika Jenkins CNM [address] [place] [address] 04/20/2025 10:00 AM EDT Office Visit [facility] CHC ADULT DENTAL [address] [place] [address] Gage Montano 05/07/2025 11:15 AM EDT Office Visit [facility] MEDICINE [address] [place] [address] Brooklyn Jalloh MD [address] [place] [address] documented as of this encounter Visit Diagnoses Not on filedocumented in this encounter Additional Health Concerns Assessment Noted Time PHQ-9 Depression Total Score: 6 02/05/20 23 11:27 AM EDT documented as of this encounter Care Teams Crab Fisher Relationship Specialty Start Date End Date Brooklyn Jalloh MD [address] [place] [address] PCP - General Family Medicine 07/17/21 documented as of this encounter
--- OUTSIDE RECORDS SUMMARY | 2025-03-20 09:56 | XMS_ITS | Encounter Summary ---
Author Organization [employer] Address [address] [facility] [address] 7t [place] [address] Care Team Providers Care Tack Picker Name Role Phone Brooklyn Jalloh MD Primary Care Provider [phone] Encounter Details Date Type Department Care Team (Late st Contact Info) Description 12/22/2023 Orders Only [facility] MEDICINE [address] [place], [place] [phone] Brooklyn Jalloh MD [address] [place], [place] [phone] Bronchitis (Primary Dx) Social History Tobacco Use Types Packs/Day Years Used Date Smoking Tobacco: Never Passive Smoke Exposure: Never Smokeless Tobacco: Never Alcohol Use Standard Drinks/Week Comments Never 0 (1 standard drink = 0.6 oz pur e alcohol) Depression Answer Date Recorded Patient Health Questionnaire-9 Score 6 02/04/2023 Housing Stability Answer Date Recorded What is your housing situation today? I have stella calles 09/09/[address] you li [...] as of this encounter Miscellaneous Notes * Result Encounter Note - Brooklyn Jalloh MD - 12/22/2023 9:04 PM EST Please let pt know her WBC and Plt are high, does she have any focal symptoms besides the bronchitis? We can recheck her CBC in 1-2 weeks, but what it shows right now is that it is working to fight infection. documented in this encounter Plan of Treatment Upcoming Encounters Date Type Department Care Team (Late st Contact Info) Description 03/30/2025 11:30 AM EDT Office Visit [facility] MEDICINE [address] [place] [address] Sarika Jenkins CNM [address] [place] [address] 04/20/2025 10:00 AM EDT Office Visit [facility] CHC ADULT DENTAL [address] [place] [address] Gage Montano 05/07/2025 11:15 AM EDT Office Visit [facility] MEDICINE [address] [place] [address] Brooklyn Jalloh MD [address] [place] [address] documented as of this encounter Procedures Procedure Name Priority Date/Time Associated Diagnosis Comments CBC WITH AUTO DIFFERENTIAL Routine 12/25/2023 12:28 PM EST Bronchitis documented in this encounter Results * (ABNORMAL) CBC auto differential (12/25/2023 12:28 PM EST) White Blood Count 15.4(H) 4.8 - 10.8 X10*3/uL [facility] Red Blood Count 5.11 4.20 - 5.50 X10*6/uL [facility] Hemoglobin 13.7 12.0 - 16.0 g/dl [facility] Hematocrit 42.6 37.0 - 47.0 % [facility] Mean Corpuscular Volume 83.4 80.0 - 98.0 fL [facility] Mean Corpuscular Hemoglobin 26.8(L) 27.0 - 33.0 pg [facility] Mean Corpuscular HGB Conc 32.2 31.0 - 35.0 g/dl [facility] Red Cell Distribution Width 13.9 11.0 - 16.0 % [facility] Platelet Count 442(H) 160 - 400 X10*3/uL [facility] Mean Platelet Volume 10.1 9.4 - 12.3 fL [facility] Neutrophils Percent Auto 71.8 45 - 73 % [facility] Imm Gran Pct Auto 0.5(H) 0.0 - 0.4 % [facility] Lymphocytes Percent Auto 20.8 20 - 40 % [facility] Monocytes Percent Auto 6.7 2 - 11 % [facility] Eosinophils Percent Auto 0.1 0 - 4 % [facility] Basophils Percent Auto 0.1 0 - 2 % [facility] NRBC Pct Auto 0.0 0.0 - 0.2 /100WBC [facility] Neutrophils Absolute Auto 11.0(H) 2.0 - 8.3 x10*3/uL [facility] Imm Gran Abs Auto 0.08(H) 0.00 - 0.03 X10*3/uL [facility] Lymphocytes Absolute Auto 3.2 1.2 - 4.9 X10*3/uL [facility] Monocytes Absolute Auto 1.0 0.1 - 1.2 X10*3/uL [facility] Eosinophils Absolute Auto 0.0 0.0 - 0.4 X10*3/uL [facility] Basophils Absolute Auto 0.0 0.0 - 0.2 X10*3/uL [facility] NRBC Abs Auto 0.000 0.0 - 0.012 X10*3/uL [facility] Blood Venous blood specimen / Unknown 12/25/2023 12:28 PM EST 12/25/2023 1:09 PM EST us Brooklyn Jalloh MD LAB BLOOD ORDERABLES Final Res ult [facility] [address] [place] [address] [phone] documented in this encounter Visit Diagnoses Diagnosis Bronchitis- Primary Bronchitis, not specified as acute or chronic documented in this encounter Additional Health Concerns Assessment Noted Time PHQ-9 Depression Total Score: 6 02/05/20 23 11:27 AM EDT documented as of this encounter Care Teams Tack Picker Relationship Specialty Start Date End Date Brooklyn Jalloh MD [address] [place] [address] PCP - General Family Medicine 07/17/21 documented as of this encounter
--- OUTSIDE RECORDS SUMMARY | 2025-03-20 09:56 | XMS_ITS | Encounter Summary ---
Author Organization [employer] Address [address] [facility] [address] 7t [place] [address] Care Team Providers Care Director Visual Name Role Phone Brooklyn Jalloh MD Primary Care Provider [phone] Encounter Details Date Type Department Care Team (Latest Contact Info) Description 04/06/2021 Abstract [facility] CONVERSIONS Dental, Provider, DDS Social History Tobacco [...] Description 03/30/2025 11:30 AM EDT Office Visit [facility] MEDICINE [address] [place] [phone] Sarika Jenkins CNM [address] [place] [address] 04/20/2025 10:00 AM EDT Office Visit [facility] CHC ADULT DENTAL [address] [place] [address] Gage Montano 05/07/2025 11:15 AM EDT Office Visit [facility] MEDICINE [address] [place] [address] Brooklyn Jalloh MD [address] [place] [address] documented as of this encounter Visit Diagnoses Not on filedocumented in this encounter Care Teams Director Visual Relationship Specialty Start Date End Date Brooklyn Jalloh MD [address] [place] [address] PCP - General Family Medicine 07/17/21 documented as of this encounter
--- OUTSIDE RECORDS SUMMARY | 2025-03-20 09:56 | XMS_ITS | Encounter Summary ---
Author Organization [employer] Address [address] [facility] [address] 7t [place] [address] Care Team Providers Care Machine Repairman Name Role Phone Brooklyn Jalloh MD Primary Care Provider [phone] Reason for Visit * Reason Onset Date Comments referral 11/29/2023 Encounter Details Date Type Department Care Team ([facility] st Contact Info) Description 11/29/2023 Telephone [facility] MEDICINE [address] [place], [place] [phone] Brooklyn Jalloh MD [address] [place], [place] [phone] referral Social History Tobacco Use Types Packs/Day Years [...] encounter Miscellaneous Notes * Telephone Encounter - Giuliana Copeland Stefan - 11/29/2023 1:47 PM EST Tc from pt requesting a Referral for [facility] Gastrology with Dr. Aldrich @ [address] [place] [address] to be further Evaluated for her Diagnoses @ the [facility] of gastroenteritis. Please contact pt @ [phone] documented in this encounter Plan of Treatment Upcoming Encounters Date Type Department Care Team ([facility] st Contact Info) Description 03/30/2025 11:30 AM EDT Office Visit [facility] MEDICINE [address] [place] [address] Sarika Jenkins CNM [address] [place] [address] 04/20/2025 10:00 AM EDT Office Visit [facility] CHC ADULT DENTAL [address] [place] [address] Gage Montano 05/07/2025 11:15 AM EDT Office Visit [facility] MEDICINE [address] [place] [address] Brooklyn Jalloh MD [address] [place] [address] documented as of this encounter Visit Diagnoses Not on filedocumented in this encounter Additional Health Concerns Assessment Noted Time PHQ-9 Depression Total Score: 6 02/05/20 23 11:27 AM EDT documented as of this encounter Care Teams Machine Repairman Relationship Specialty Start Date End Date Brooklyn Jalloh MD [address] [place] [address] PCP - General Family Medicine 07/17/21 documented as of this encounter
--- OUTSIDE RECORDS SUMMARY | 2025-03-20 09:56 | XMS_ITS | Encounter Summary ---
Author Organization [employer] Address [address] [facility] 7t [place] [address] Care Team Providers Care Barratte Operator Name Role Phone Brooklyn Jalloh MD Primary Care Provider [phone] Reason for Visit * Reason Onset Date Comments Med Refill 03/16/2025 Medication Question 03/16/2025 Encounter Details Date Type Department Care Team (Late st Contact Info) Description 03/16/2025 Refill [facility] [address] [place] [address] Brooklyn Jalloh MD [address] [place] [address] Social History Tobacco Use Types Packs/Day Years [...] Telephone Encounter - Sapphire Brown - 03/19/2025 9:37 AM EDT Tc from pt stating needs the medication because her back pain persists. * Telephone Encounter - Georgette Higgins LPN - 03/16/2025 12:54 PM EDT Medication discontinued therapy complete * Telephone Encounter - Jairon Beach - 03/16/2025 12:16 PM EDT TC from pt requesting medication refill. Medications needing refill : Diclofenac Sodium 1 % gel To be sent to: [facility] - [place], [place] - [address] [facility] documented in this encounter Plan of Treatment Upcoming Encounters Date Type Department Care Team (Late st Contact Info) Description 03/30/2025 11:30 AM EDT Office Visit [facility] [address] [place] [address] Sarika Jenkins CNM [address] [place] [address] 04/20/2025 10:00 AM EDT Office Visit [facility] ADULT DENTAL [address] [place] [address] Gage Montano 05/07/2025 11:15 AM EDT Office Visit [facility] [address] [place] [address] Brooklyn Jalloh MD [address] [place] [address] documented as of this encounter Visit Diagnoses Not on filedocumented in this encounter Additional Health Concerns Assessment Noted Time PHQ-9 Depression Total Score: 5 03/16/20 24 11:45 AM EDT documented as of this encounter Care Teams Barratte Operator Relationship Specialty Start Date End Date Brooklyn Jalloh MD [address] [place] [phone] PCP - General Family Medicine 07/17/21 documented as of this encounter
--- OUTSIDE RECORDS SUMMARY | 2025-03-20 09:56 | XMS_ITS | Encounter Summary ---
Author Organization [employer] Address [address] 7[address] [place] [address] Care Team Providers Care Hse Manager Name Role Phone Brooklyn Jalloh MD Primary Care Provider [phone] Reason for Visit * Reason Onset Date Comments Referral 05/10/2023 Encounter Details Date Type Department Care Team ([facility] st Contact Info) Description 05/10/2023 Telephone [facility] [address] [place], [place] [phone] Brooklyn Jalloh MD [address] [place], [place] [phone] Referral Social History Tobacco Use Types Packs/Day [...] suspected to have Coronavirus/COVID-19? No / Unsure 05/03/2023 11:24 AM EDT documented as of this encounter Miscellaneous Notes * Telephone Encounter - Giuliana Aviles - 05/10/2023 10:44 AM EDT Tc from pt requesting a call from a nurse in regards to her podiatry visit. Patient states that will like to be sent to another podiatry due to not feeling any change in regards to her toenails. Please contact pt at [phone] Sami Speaker documented in this encounter Plan of Treatment Upcoming Encounters Date Type Department Care Team (Late st Contact Info) Description 03/30/2025 11:30 AM EDT Office Visit [facility] [address] [place] [address] Sarika Jenkins CNM [address] [place] [address] 04/20/2025 10:00 AM EDT Office Visit [facility] [address] [place] [address] Gage Montano 05/07/2025 11:15 AM EDT Office Visit [facility] [address] [place] [address] Brooklyn Jalloh MD [address] [place] [phone] documented as of this encounter Visit Diagnoses Not on filedocumented in this encounter Additional Health Concerns Assessment Noted Time PHQ-9 Depression Total Score: 6 02/05/20 23 11:27 AM EDT documented as of this encounter Care Teams Hse Manager Relationship Specialty Start Date End Date Brooklyn Jalloh MD [address] [place] [phone] PCP - General Family Medicine 07/17/21 documented as of this encounter
--- OUTSIDE RECORDS SUMMARY | 2025-03-20 09:56 | XMS_ITS | Encounter Summary ---
Author Organization [employer] Address [address] [facility] 7t [place] [address] Care Team Providers Care Psychologist Social Name Role Phone Brooklyn Jalloh MD Primary Care Provider [phone] Encounter Details Date Type Department Care Team ([facility] Contact Info) Description 11/12/2022 Orders Only [facility] [address] [place] [address] [phone] Brooklyn Jalloh MD [address] [place] [address] [phone] Social History Tobacco Use Types Packs/Day Years Used Date Smoking Tobacco: Never Smokeless Tobacco: Never Alcohol Use Standard Drinks/Week Comments Never 0 (1 standard drink = 0.6 oz pur e alcohol) Comments Unknown Sex and Gender Information Value [...] suspected to have Coronavirus/COVID-19? No / Unsure 11/05/2022 2:18 PM EST documented as of this encounter Plan of Treatment Upcoming Encounters Date Type Department Care Team ([facility] Contact Info) Description 03/30/2025 11:30 AM EDT Office Visit [facility] [address] [place] [address] [phone] Sarika Jenkins CNM [address] [place], [place] [phone] 04/20/2025 10:00 AM EDT Office Visit [facility] [address] [facility] [place] [address] Gage Montano 05/07/2025 11:15 AM EDT Office Visit [facility] [address] [place] [address] Brooklyn Jalloh MD [address] [place] [address] documented as of this encounter Visit Diagnoses Not on filedocumented in this encounter Care Teams Psychologist Social Relationship Specialty Start Date End Date Brooklyn Jalloh MD [address] [place] [address] PCP - General Family Medicine 07/17/21 documented as of this encounter
--- OUTSIDE RECORDS SUMMARY | 2025-03-20 09:56 | XMS_ITS | Encounter Summary ---
Author Organization [employer] Address [address] [facility] [facility] [address] 7[address] [place] [address] Care Team Providers Care Position Classifier Name Role Phone Brooklyn Jalloh MD Primary Care Provider Reason for Visit * Reason Onset Date Comments Medication Question 11/19/2024 Encounter Details Date Type Department Care Team ([facility] Contact Info) Description 11/19/2024 Telephone [facility] [address] [place] [place], [place] [phone] Brooklyn Jalloh MD [address] [place], [place] [phone] Medication Question Social History Tobacco Use Types Packs/Day Years [...] * Telephone Encounter - Sapphire Brown - 11/19/2024 3:39 PM EST Tc from pt requesting med prescription ( lidocaine (Lidoderm) 5 % patch ) status. documented in this encounter Plan of Treatment Upcoming Encounters Date Type Department Care Team (Late st Contact Info) Description 03/30/2025 11:30 AM EDT Office Visit [facility] [address] [place] [phone] Sarika Jenkins CNM [address] [place] [address] 04/20/2025 10:00 AM EDT Office Visit [facility] [address] [place] [address] Gage Montano 05/07/2025 11:15 AM EDT Office Visit [facility] [address] [place] [address] Brooklyn Jalloh MD [address] [place] [address] documented as of this encounter Visit Diagnoses Not on filedocumented in this encounter Additional Health Concerns Assessment Noted Time PHQ-9 Depression Total Score: 5 03/16/20 24 11:45 AM EDT documented as of this encounter Care Teams Position Classifier Relationship Specialty Start Date End Date Brooklyn Jalloh MD [address] [place] [address] PCP - General Family Medicine 07/17/21 documented as of this encounter
--- OUTSIDE RECORDS SUMMARY | 2025-03-20 09:56 | XMS_ITS | Encounter Summary ---
Author Organization [employer] Address [address] 7[address] [place] [address] Care Team Providers Care Obstetrics Tech Name Role Phone Brooklyn Jalloh MD Primary Care Provider [phone] Encounter Details Date Type Department Care Team (Late Contact Info) Description 05/11/2023 Orders Only [facility] [address] [place] [address] [phone] Brooklyn Jalloh MD [address] [place], [place] [phone] Onychomycosis (Primary Dx) Social History Tobacco Use Types [...] Description 03/30/2025 11:30 AM EDT Office Visit [facility] [address] [place] [address] Sarika Jenkins CNM [address] [place] [address] 04/20/2025 10:00 AM EDT Office Visit [facility] [address] [place] [address] Gage Montano 05/07/2025 11:15 AM EDT Office Visit [facility] [address] [place] [address] Brooklyn Jalloh MD [address] [place] [address] documented as of this encounter Visit Diagnoses Diagnosis Onychomycosis- Primary Dermatophytosis of nail documented in this encounter Additional Health Concerns Assessment Noted Time PHQ-9 Depression Total Score: 6 02/05/20 23 11:27 AM EDT documented as of this encounter Care Teams Obstetrics Tech Relationship Specialty Start Date End Date Brooklyn Jalloh MD [address] [place] [address] PCP - General Family Medicine 07/17/21 documented as of this encounter
--- OUTSIDE RECORDS SUMMARY | 2025-03-20 09:56 | XMS_ITS | Encounter Summary ---
Author Organization [employer] Address [address] [facility] 7t [place] [address] Care Team Providers Care Naval Aircrewman Name Role Phone Brooklyn Jalloh MD Primary Care Provider Reason for Visit * Reason Comments Med Refill Encounter Details Date Type Department Care Team (Late st Contact Info) Description 07/29/2023 Refill [facility] [address] [place], [place] [phone] Brooklyn Jalloh MD [address] [place], [place] [phone] Social History Tobacco Use Types Packs/Day Years [...] Description 03/30/2025 11:30 AM EDT Office Visit [facility] [address] [place], [place] [phone] Sarika Jenkins CNM [address] [place], [place] [phone] 04/20/2025 10:00 AM EDT Office Visit [facility] [address] [facility] [place] [address] Gage Montano 05/07/2025 11:15 AM EDT Office Visit [facility] [address] [place] [address] Brooklyn Jalloh MD [address] [place] [address] documented as of this encounter Visit Diagnoses Not on filedocumented in this encounter Additional Health Concerns Assessment Noted Time PHQ-9 Depression Total Score: 6 02/05/20 23 11:27 AM EDT documented as of this encounter Care Teams Naval Aircrewman Relationship Specialty Start Date End Date Brooklyn Jalloh MD [address] [place] [address] PCP - General Family Medicine 07/17/21 documented as of this encounter
--- OUTSIDE RECORDS SUMMARY | 2025-03-20 09:56 | XMS_ITS | Encounter Summary ---
Author Organization [employer] Address [address] [facility] 7t [place] [address] Care Team Providers Care Gathering Worker Name Role Phone Brooklyn Jalloh MD Primary Care Provider [phone] Encounter Details Date Type Department Care Team (Late Contact Info) Description 07/23/2023 Abstract [facility] [address] [place] [address] [phone] Brooklyn Jalloh MD [address] [place] [address] [phone] Social History Tobacco Use Types Packs/Day Years [...] Description 03/30/2025 11:30 AM EDT Office Visit [facility] [address] [place], [place] [phone] Sarika Jenkins CNM [address] [place], [place] [phone] 04/20/2025 10:00 AM EDT Office Visit [facility] [address] [facility] [place] [address] Gage Montano 05/07/2025 11:15 AM EDT Office Visit [facility] [address] [place] [address] Brooklyn Jalloh MD [address] [place], [place] [phone] documented as of this encounter Visit Diagnoses Not on filedocumented in this encounter Additional Health Concerns Assessment Noted Time PHQ-9 Depression Total Score: 6 02/05/20 23 11:27 AM EDT documented as of this encounter Care Teams Gathering Worker Relationship Specialty Start Date End Date Brooklyn Jalloh MD [address] [place] [address] PCP - General Family Medicine 07/17/21 documented as of this encounter
--- OUTSIDE RECORDS SUMMARY | 2025-03-20 09:56 | XMS_ITS | Encounter Summary ---
Author Organization [employer] Address [address] [place] [address] Care Team Providers Care Ground Support Agent Name Role Phone Brooklyn Jalloh MD Primary Care Provider [phone] Reason for Visit * Reason Onset Date Comments Lab Orders 03/19/2025 Encounter Details Date Type Department Care Team ([facility] st Contact Info) Description 03/19/2025 Telephone [facility] [address] [place], [place] [phone] Brooklyn Jalloh MD [address] [place], [place] [phone] Lab Orders Social History Tobacco Use Types Packs/Day Years [...] the past 12 months, has t he Need, gas, oil or water [employer] threatened to shut off services in your [...] encounter Miscellaneous Notes * Telephone Encounter - Kasandra Hawk RN - 03/19/2025 11:29 AM EDT TC placed to patient [phone] using BLS#ID [id number] regarding below message. RN informed patient that her PCP ordered Diclofenac sodium gel for her arthritis pain and she can picker and packer her medicationsat [facility] pharmacy. Pt verbalized understanding. PT to F/U PRN. * Telephone Encounter - Kasandra Hawk RN - 03/19/2025 10:03 AM EDT TC placed to patient [phone] using BLS #ID [id number] regarding below message. Pt informed RN that she wants STI testing and pap smear because she wants to know if her partner is reliable. Pt denies any symptoms at this time. RN informed patient that she needs a appt with a provider. RN scheduled aappt 03/30/25 at 1130 with Sarika Jenkins CMGregory. Pt also reported she needs a cream for her arthritis pain and she is out of the cream. Pt was unable to tell the RN what cream she was using. RN informed patient that her PCP will be notified of her request. Pt verbalized understanding. PT to F/U PRN. PCP to review. * Telephone Encounter - Sapphire Brown - 03/19/2025 9:45 AM EDT Tc from pt requesting STI lab orders. documented in this encounter Plan of Treatment Upcoming Encounters Date Type Department Care Team (Late st Contact Info) Description 03/30/2025 11:30 AM EDT Office Visit [address] [address] Sarika Jenkins CNM [address] [place] [address] 04/20/2025 10:00 AM EDT Office Visit [facility] [address] [place] [address] Gage Montano 05/07/2025 11:15 AM EDT Office Visit [address] [address] Brooklyn Jalloh MD [address] [place] [address] documented as of this encounter Visit Diagnoses Not on filedocumented in this encounter Additional Health Concerns Assessment Noted Time PHQ-9 Depression Total Score: 5 03/16/20 24 11:45 AM EDT documented as of this encounter Care Teams Ground Support Agent Relationship Specialty Start Date End Date Brooklyn Jalloh MD [address] [place] [phone] PCP - General Family Medicine 07/17/21 documented as of this encounter
--- OUTSIDE RECORDS SUMMARY | 2025-03-20 09:56 | XMS_ITS | Data Portability ---
Author Organization [place] - [facility], Allergy Address [address] [place] [id number] Assessment Encounter Date Assessment Date Assessment LastModified by Organization Details LastModified Time 12/25/2024 12/25/2024 Patient with itching in the ears, improved with fluocinolone. Refills provided today. Discussed not to use antibiotics without being seen by provider. Recommend 6 month recheck for fluocinolone refills. Discussed we should update her audiometric testing. We will bring her back next available for that. [email or web address] Not available 12/25/2024 12:24:16 01/06/2025 01/06/2025 Recommendations : Follow up with referring provider. [email or web address] Not available 01/06/2025 09:25:42 Plan of Treatment Reminders Order Date Submit Date Provider Last Modified By Organization Details Last Modified Time Details Appointments Establish ed 15 2024 11:15A M LIOR KHANNA PA-C Not available Not available Not available Lab None recorded. Referral None recorded. Procedures None recorded. Surgeries None recorded. Imaging None recorded. Medication Orders fluocinol one acetonide oil 0.01 % ear drops 2024 025 [facility], [address] [facility], [place], [place], [id number], 12/25/2024 12:01:14 Patient TargetsNo targets recorded. Patient InstructionsNo instructions recorded. Reason for Referral None Reported. Results Created Date Observation Date Name Description Value Unit Range Abnormal Flag Note LastModifiedBy Organization Detail LastModifiedTime 01/06/20 25 audio gram No observ ation record ed. BARCODE Not Available 2024 10:40:01 Result Notes None recorded. Problems Name Problem SNOMED Code Status Onset Date Resolution Date Notes Provider Name and Address Organization Details Recorded Time Bilateral tinnitus 46777928670 02 Active 2022 Tinnitus, bilateral ; Note: Date Diagnosed : 04/18/2023 4:24 PM (H93.13) Not Available [facility] 03:26:19 Sensorine ural hearing loss of bilateral ears 657072385 Active 2022 Sensorine ural hearing loss, bilateral ; Note: Date Diagnosed : 04/18/2023 2:04 PM (H90.3) Not Available [facility] 4 03:26:18 Itching of skin 409639348 Active 2022 Other pruritus; Note: Date Diagnosed : 04/18/2023 4:24 PM (L29.8) Not Available [facility] 03:26:18 Problem Notes None recorded. Procedures Surgical History Date Name Laterality Status Provider Name and Address Organization Details Recorded Time 01/06/2025 Air & Speech Audio with Tymps (01023, 15467 & 56553) completed NAJMA DENIS, [address], [address], [facility] 01/06/2025 09:33:21 Imaging Results Imaging Date Name Status LastModified by Organiz ation Details LastModified Time 01/06/2025 audiogram completed BARCODE Information no t available 01/06/2025 10:40:01 Procedure Notes None recorded. Medical Equipment None Reported. Allergies Allergen ID Allergen Name Allergen Category Reaction Reaction Severity Criticality Documentation Date Start Date Code Code System Note Provider Name and Address Organization Details Recorded Time [id number] Fish (substanc e) food,medi cation Not available Not available Not available 04/07/2024 68228 1005 SNOMED React ion: Hives , Rash; Not Available [facility] 4 01:27:00 Medications Name Sig Start Date Stop Date Status Note LastModified by Organization Details LastModified Time multivitam in tablet TAKE 1 TABLET BY MOUTH EVERY MORNING active Not Available Not Available No t Available amoxicilli n 500 mg capsule TAKE 1 CAPSULE BY MOUTH EVERY 8 HOURS FOR 7 DAYS active Not Available Not Available No t Available atorvastat in 40 mg tablet TAKE 1 TABLET BY MOUTH EVERY DAY active Not Available Not Available No t Available albuterol sulfate 2.5 mg/3 mL (0.083 %) solution for nebulizati on INHALE 1 AMPULE USING A NEBULIZER EVERY 4 HOURS NEEDED FOR WHEEZING active Not Available Not Available No t Available trazodone 50 mg tablet TAKE 1 TABLET BY MOUTH AT BEDTIME NEEDED active Not Available Not Available No t Available ibuprofen 800 mg tablet active Medicatio n ID: [id number] Br and Name: ibuprofen Send Method: E-Prescri bed Subs Allowed: subs OK Medica tionGener icName: ibuprofen Not Available Not Available Not Available fluconazol e 150 mg tablet TAKE 1 TABLET BY MOUTH FOR 1 DOSE active Not Available Not Available No t Available senna 8.6 mg tablet active Medicatio n ID: [id number] Br and Name: senna Sen d Method: E-Prescri bed Subs Allowed: subs OK Medica tionGener icName: senna Not Available Not Available Not Available sucralfate 1 gram tablet DISSOLVE 1 TABLET IN CAPFUL OF WATER AND SWALLOW TWICE DAILY active Not Available Not Available No t Available prednisone 20 mg tablet TAKE 2 TABLETS BY MOUTH EVERY DAY active Not Available Not Available No t Available triamcinol one acetonide 0.1 % topical cream MIX WITH cerave CREAM AND APPLY A THIN LAYER TO AFFECTED AREA(S) TWICE DAILY DIRECTED active Not Available Not Available No t Available acetaminop hen ER 650 mg tablet,ext ended release TAKE 1 TABLET BY MOUTH EVERY 6 HOURS NEEDED SWALLOW WHOLE WITH WATER DO NOT BREAK, CRUSH, DISSOLVE OR CHEW active Not Available Not Available No t Available baclofen 10 mg tablet TAKE 1 TABLET BY MOUTH TWICE DAILY FOR MUSCLE SPASMS active Not Available Not Available No t Available Betasept Surgical Scrub 4 % topical liquid USE DIRECTED TOPICALLY TO CLEAN FEET TWICE DAILY DIRECTED active Not Available Not Available No t Available nortriptyl ine 10 mg capsule TAKE 1 CAPSULE BY MOUTH EVERY DAY AT BEDTIME NEEDED FOR BACK PAIN active Not Available Not Available No t Available buspirone 10 mg tablet TAKE 1 TABLET BY MOUTH TWICE DAILY active Not Available Not Available No t Available docusate sodium 100 mg capsule TAKE 1 CAPSULE BY MOUTH TWICE DAILY NEEDED FOR CONSTIPAT ION active Not Available Not Available No t Available omeprazole 20 mg capsule,de layed release TAKE 1 CAPSULE BY MOUTH ONCE DAILY NEEDED FOR HEARTBURN active Not Available Not Available No t Available lisinopril 5 mg tablet TAKE 1 TABLET BY MOUTH EVERY DAY active Not Available Not Available No t Available gabapentin 100 mg capsule TAKE 1 CAPSULE BY MOUTH EVERY DAY active Not Available Not Available No t Available ibuprofen 600 mg tablet TAKE 1 TABLET BY MOUTH THREE TIMES DAILY FOR 7 DAYS active Not Available Not Available No t Available estradiol 0.01% (0.1 mg/gram) vaginal cream INSERT 1 GRAM VAGINALLY TWICE A WEEK active Not Available Not Available No t Available ipratropiu m bromide 42 mcg (0.06 %) nasal spray PLEASE SEE ATTACHED FOR DETAILED DIRECTION S active Not Available Not Available No t Available ketoconazo le 2 % topical cream APPLY 1 GRAM TOPICALLY TO AFFECTED AREA(S) ON THE parte superior e inferior [place] TWICE DAILY DIRECTED active Not Available Not Available No t Available ondansetro n 4 mg disintegra ting tablet DISSOLVE 1 TABLET ON TONGUE EVERY 6 HOURS NEEDED FOR NAUSEA AND VOMITING active Not Available Not Available No t Available fluoxetine 20 mg capsule TAKE 2 CAPSULES BY MOUTH EVERY MORNING active Not Available Not Available No t Available fluticason e propionate 50 mcg/actuat ion nasal spray,susp ension INSTILL 2 SPRAYS IN EACH NOSTRIL ONCE DAILY IN THE MORNING active Not Available Not Available No t Available metformin ER 500 mg tablet,ext ended release 24 hr TAKE 1 TABLET BY MOUTH ONCE DAILY WITH EVENING MEAL DO NOT BREAK, CRUSH, DISSOLVE OR CHEW active Not Available Not Available No t Available loratadine 10 mg tablet TAKE 1 TABLET BY MOUTH EVERY DAY active Not Available Not Available No t Available Ventolin HFA 90 mcg/actuat ion aerosol inhaler INHALE 2 PUFFS BY MOUTH FOUR TIMES DAILY NEEDED FOR WHEEZING active Not Available Not Available No t Available simethicon e 80 mg chewable tablet CHEW and SWALLOW 1 TABLET BY MOUTH EVERY 8 HOURS NEEDED FOR GAS active Not Available Not Available No t Available neomycin-p olymyxin-h ydrocort 3.5 mg-10,000 unit/mL-1 % ear drops,susp PLACE 2 DROPS INTO THE AFFECTED EAR(S) FOUR TIMES DAILY FOR 10 DAYS active Not Available Not Available No t Available Pain Reliever Plus 250 mg-250 mg-65 mg tablet TAKE 1 TABLET BY MOUTH EVERY 6 HOURS NEEDED FOR HEADACHE active Not Available Not Available No t Available fluocinolo ne acetonide oil 0.01 % ear drops INSTILL 3 DROPS INTO THE AFFECTED EAR(S) NEEDED (for itching) active Not Available Not Available No t Available cholecalci ferol (vitamin D3) 25 mcg (1,000 unit) tablet TAKE 1 TABLET BY MOUTH EVERY DAY active Not Available Not Available No t Available HealthyLax 17 gram oral powder packet DISSOLVE 1 PACKET IN 8 OUNCES OF WATER, JUICE, COFFEE OR TEA AND DRINK BY MOUTH EVERY DAY NEEDED FOR CONSTIPAT ION active Not Available Not Available No t Available Elsa-Tussi n 100 mg/5 mL oral liquid TAKE 10 ML BY MOUTH THREE TIMES DAILY NEEDED FOR COUGH active Not Available Not Available No t Available Breo Ellipta 200 mcg-25 mcg/dose powder for inhalation INHALE 1 PUFF BY MOUTH EVERY DAY active Not Available Not Available No t Available Paxlovid 300 mg (150 mg x 2)-100 mg tablets in a dose pack TAKE 2 TABLETS (300 MG) OF NIRMATREL VIR & 1 TABLET (100 MG) OF RITONAVIR BY MOUTH TWICE DAILY FOR 5 DAYS active Not Available Not Available No t Available Vitals Date Recorded Body height Body mass index (BMI) Body weight Provider Name and Address Organization Details Last Updated DateTime 12/25/2024 165.1 cm 25.8 kg/m2 80866.82 g Kirsten Solis [place] - [facility] 12/25/2024 11:38:16 Social History None recorded. Functional Status None recorded. Mental Status None recorded. Family History Nothing Reported. Medical History No medical history recorded. Gynecological HistoryNo gynecological history recorded. Obstetrics History GPAL:G 0 P 0 0 0 0 Past Encounters Encounter ID Performer Location Encounter Start Date Encounter Closed Date Diagnosis/Indication Diagnosis SNOMED-CT Code Diagnosis ICD10 Code Diagnosis Note [id number] IMMANUEL CARCAMO PA-C [facility] [address] [address] 12/25/2024 11:28:54 12/25/2024 11:54:46 Itching of skin 789281118 L29.89 Sensorineu ral hearing loss of bilateral ears 039879024 H90.3 Bilateral tinnitus 03634 39452 102 H93.13 [id number] PATRIZIA FERREIRA [facility] [address] [address] 01/06/2025 09:20:17 01/06/2025 09:38:10 Sensorineural hearing loss of bilateral ears 224928351 H90.3 Audiologic al evaluation results: {{Normal sloping* M ild Modera te Moderat molly-severe Severe Pr ofound Nor mal auditory thresholds }} to {{mild* mo derate mod erately-se leo sever e profound with}} {{sensorin eural hearing loss with* cond uctive hearing loss with mixed hearing loss with}} {{excellen t* good fa ir poor no t measurable }} word recognitio n, bilaterall y. Tympanomet ry:Right Ear:{{Type A* Type As Type Ad Type C Type C, shallow & rounded Ty pe B Type B with large volume Cou ld not maintain a hermetic seal}}Left Ear:{{Type A* Type As Type Ad Type C Type C, shallow & rounded Ty pe B Type B with large volume Cou ld not maintain a hermetic seal}} Health Concerns Section Related Observation LastModified by Organization Detai ls LastModified Time None Recorded Concern Status LastModified by Organization Details LastModified Time None Recorded Advance Directives Directive None Recorded Payers Encounter Date Sequence Insurance Name Policy Number Policy Gordon Covered Member ID Gordon Member ID Guarantor Name 12/25/2024 1 [facility] (MEDICARE REPLACEMENT/ADV ANTAGE - HMO) Machelle Barroso [id number] Machelle Barroso 01/06/2025 1 [facility] (MEDICARE REPLACEMENT/ADV ANTAGE - HMO) Machelle Barroso [id number] Machelle Barroso Notes Date Note Type Note Provider Name and Address Organization Details Recorded Time 12/25/2024 text/html 54 year old yolanda chan with history of seborrheic dermatitis presents for re-evaluation of the ears. Last seen 07/2023. About a week ago she was having some trouble with the right ear. Was having some itching and pressure. Started her nasal spray and it improved a bit. She has also been using a drop in the ear, believes that it is an antibiotic. She reports she is out of the fluocinolone. The ears had not been itching much until the past few weeks. She denies routine Q-tip use and tries to keep the ears dry in the shower but does not use plugs. Hearing has been stable and there has been no otorrhea. Reports the ears get itchier when she is anxious. IMMANUEL CARCAMO PA-C [address] [facility],[address], [address], [facility] - [facility] 12/25/2024 12:24:29 01/06/2025 text/html Audiological Evaluation HPIReported bypatient.Hearing loss perceived:gradual onset PATRIZIA FERREIRA [address] [facility],[place] [address], [place], [address], [facility] - [facility] 01/06/2025 09:35:45 OBGyn Episode No OBEpisode recorded.
--- OUTSIDE RECORDS SUMMARY | 2025-03-20 09:56 | XMS_ITS | Encounter Summary ---
Author Organization [employer] Address [address] [place] [address] Care Team Providers Care Crosscutter Name Role Phone Brooklyn Jalloh MD Primary Care Provider [phone] Encounter Details Date Type Department Care Team (Latest Contact Info) Description 05/12/2019 Abstract [facility] CONVERSIONS Dental, Provider, DDS Social History Tobacco [...] 11:30 AM EDT Office Visit [facility] MEDICINE [address] [place] [phone] Sarika Jenkins CNM [address] [place] [address] 04/20/2025 10:00 AM EDT Office Visit [facility] CHC ADULT DENTAL [address] [place] [address] Gage Montano 05/07/2025 11:15 AM EDT Office Visit [facility] MEDICINE [address] [place] [address] Brooklyn Jalloh MD [address] [place] [phone] documented as of this encounter Visit Diagnoses Not on filedocumented in this encounter Care Teams Crosscutter Relationship Specialty Start Date End Date Brooklyn Jalloh MD [address] [place] [address] PCP - General Family Medicine 07/17/21 documented as of this encounter
--- OUTSIDE RECORDS SUMMARY | 2025-03-20 09:56 | XMS_ITS | Clinical Summary ---
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 Active Fluticasone Furoate-Vilantero l (Breo Ellipta) 100-25 MCG/ACT aerosol powder Inhale 1 puff at bed time. Active albuterol 108 (90 Base) MCG/ACT inhaler Inhale every 6 (six) hours. 022 Active busPIRone (Buspar) 10 MG tablet Take 10 mg by mouth 2 times daily. 023 Active lactulose (Chronulac) 10 GM/15ML solution TAKE 15 ML BY MOUTH EVERY DAY NEEDED FOR CONSTIPATION 022 Active fluocinolone (DermOtic) 0.01 % ear drops APPLY 4 DROPS IN EACH EAR TWICE DAILY FOR ONE WEEK THEN USE UP TO TWICE A WEEK NEEDED 023 Active FLUoxetine (PROzac) 20 MG capsule Take 40 mg by mouth in the morning. 023 Active ketoconazole (NIZOral) 2 % cream 023 Active Respiratory Therapy Supplies (Adult Aerosol Mask) misc USE DIRECTED WITH NEBULIZER 023 Active docusate sodium (Colace) 100 MG capsule TAKE 1 CAPSULE BY MOUTH TWICE DAILY NEEDED FOR CONSTIPATION 180 capsule 3 023 Active triamcinolone (Kenalog) 0.1 % cream MIX WITH cerave AND APPLY A THIN LAYER TO AFFECTED AREA(S) TWICE DAILY DIRECTED 80 g 3 024 Active estradiol (Estrace) 0.1 MG/GM vaginal creamIndications: Atrophic vaginitis 1g vaginally twice a week 42.5 g 2 024 Active ipratropium (Atrovent) 0.06 % nasal spray PLEASE SEE ATTACHED FOR DETAILED DIRECTIONS 024 Active nortriptyline (Pamelor) 10 MG capsule Take 1 capsule (10 mg) by mouth at bedtime. For back pain 90 capsule 3 024 Active HealthyLax 17 g packetIndications :Constipation, unspecified constipation type Mix 1 packet in 8 ounces of water, juice, coffee or tea and drink once a day NEEDED FOR CONSTIPATION 30 packet 6 024 Active Respiratory Therapy Supplies (Nebulizer/Tubing /Mouthpiece) kit To be used with Nebulizer 1 kit 024 Active lisinopril 5 MG tablet TAKE 1 TABLET BY MOUTH EVERY DAY 90 tablet 3 024 Active sucralfate (Carafate) 1 g tablet DISSOLVE 1 TABLET IN CAPFUL OF WATER & SWALLOW TWICE DAILY 024 Active metFORMIN, OSM, (Fortamet) 500 MG 24 hr tablet Take 1 tablet (500 mg) by mouth with evening meal. Do not crush, chew, or split. 90 tablet 3 024 2024 Active atorvastatin (Lipitor) 40 MG tabletIndications :Hyperlipidemia, unspecified hyperlipidemia type Take 1 tablet (40 mg) by mouth Once per day. 90 tablet 3 024 Active lidocaine (Lidoderm) 5 % patchIndications: Calcific tendonitis of right shoulder Apply 1 patch topically Once per day. Remove & discard patch within 12 hours or as directed by . 30 patch 1 024 Active acetaminophen (Tylenol 8 Hour) 650 MG ER tablet TAKE 1 TABLET BY MOUTH EVERY 6 HOURS NEEDED, SWALLOW WHOLE WITH WATER, DO NOT BREAK, CRUSH, DISSOLVE OR CHEW 90 tablet 3 025 Active fluticasone (Flonase) 50 MCG/ACT nasal spray INSTILL 2 SPRAYS IN EACH NOSTRIL ONCE DAILY IN THE MORNING 16 g Active simethicone (Mylicon) 80 MG chewable tabletIndications :Biliary colic CHEW AND SWALLOW 1 TABLET BY MOUTH EVERY 8 HOURS NEEDED FOR GAS 90 tablet Active Pain Reliever Plus 250-250-65 MG tablet TAKE 1 TABLET BY MOUTH EVERY 6 HOURS NEEDED FOR HEADACHE 30 tablet Active cholecalciferol (Vitamin D-3) 25 MCG tabletIndications :Vitamin D deficiency TAKE 1 TABLET BY MOUTH EVERY DAY 90 tablet 025 Active metFORMIN XR (Glucophage-XR) 500 MG 24 hr tablet TAKE 1 TABLET BY MOUTH ONCE DAILY WITH EVENING MEAL DO NOT BREAK, CRUSH, DISSOLVE OR CHEW Active glucose blood (FREESTYLE LITE) test strip 1 each by Other route Once per day. 100 each 025 2026 Active TRUEplus Lancets 33G misc Apply 1 each topically Once per day. 100 each Active albuterol (2.5 MG/3ML) 0.083% nebulizer solutionIndicatio ns:Cough in adult patient Take 3 mL (2.5 mg) by nebulization every 4 (four) hours if needed for wheezing. 90 mL Active gabapentin (Neurontin) 100 MG capsule TAKE 1 CAPSULE BY MOUTH EVERY DAY 30 capsule 025 Active omeprazole (PriLOSEC) [address] capsule TAKE 1 CAPSULE BY MOUTH ONCE DAILY NEEDED FOR HEARTBURN 90 capsule 025 Active loratadine (Claritin) 10 MG tabletIndications :Mild persistent asthma without complication TAKE 1 TABLET BY MOUTH EVERY DAY 90 tablet 3 025 Active Multiple Vitamin (Multivitamin) tabletIndications :Moderate persistent asthma with exacerbation TAKE 1 TABLET BY MOUTH EVERY MORNING 90 tablet Active Diclofenac Sodium 1 % gel Apply to affected area up to 4x daily 50 g 025 Active loratadine (Claritin) 10 MG tabletIndications :Mild persistent asthma without complication TAKE 1 TABLET BY MOUTH EVERY DAY 90 tablet 024 2024 Discontinued Multiple Vitamin (Multivitamin) tabletIndications :Moderate persistent asthma with exacerbation TAKE 1 TABLET BY MOUTH EVERY MORNING 90 tablet 3 024 2024 Discontinued omeprazole (PriLOSEC) [address] capsule TAKE 1 CAPSULE BY MOUTH ONCE DAILY NEEDED FOR HEARTBURN 90 capsule 3 024 2024 Discontinued ibuprofen 600 MG tabletIndications :Acute upper back pain Take 1 tablet (600 mg) by mouth every 8 (eight) hours if needed for mild pain for up to 10 days. 30 tablet 025 2024 Diclofenac Sodium 1 % gel Apply to affected area up to 4x daily 50 g 2 025 2024 Discontinued(R eorder (will not trigger notification to Pharmacy)) Active Problems Problem Noted Date Diagnosed Date Precordial pain 11/19/2024 Assessment & Plan (11/19/2024 11:37 AM EST): Patient with c/o new intermittent fleeting left sided chest discomfort, never lasting more than a few minutes at a time. Not associated with any other symptoms. Etiology, atypical? Pt states she has a strong family hx of heart disease EKG: NSR, No acute st t changes Plan: Given that heart disease in women follows more of an atypical presentation and patient is hypertensive and pre-diabetic will refer to Cardiology for outpatient stress testing Calcific tendonitis of right shoulder 10/01/2024 Assessment & Plan (11/19/2024 11:13 AM EST): Pt here with c/o moderate right shoulder pain for > 2 months, not improving despite the use of NSAIDS. Has been using Lidocaine patches given to her by her with partial relief she is requesting some. On exam she has tenderness to palpation and decreased ROM on both active and passive movement due to pain X-ray showed: calcific tendinitis of the superior rotator cuff. Plan: PT eval, Ortho consult for consideration of steroid injection. If no improvement she may need an MRI Follow up with PCP Assessment & Plan (10/01/2024 2:58 PM EST): Lidocaine 5% patches No PT, does not have time to attend currently Depression, recurrent 08/11/2024 Assessment & Plan (08/12/2024 11:42 AM EDT): Continue Prozac 20mg daily Elevated alkaline phosphatase level 03/16/2024 Assessment & Plan (08/12/2024 11:38 AM EDT): GGT shows elevation meaning Alk Phos is of liver origin Will continue to monitor liver enzymes every 3 months, control blood sugars more tightly, and recheck infectious etiologies Assessment & Plan (03/16/2024 1:16 PM EDT): Recheck in 3 months Vaginitis 08/01/2023 Assessment & Plan (08/01/2023 10:44 AM EDT): Reports having 1 week of vaginal itching with whitish discharge Risk factor ATBs use , hx of DM-last hb1AC was 6.3 in 01/2023 Exam only mild vaginal erythema and whitish discharge in pad Most likely abhishek infection From previous test -had + abhishek infection in 01/2023 ,rest was neg Today urine dipstick is neg -sure swab and GC/ch self collected today -sent to lab -empiric tx w fluconazole 150 mg daily -will f w PCP in 3 weeks -has apt schedule already Urinary incontinence 05/06/2023 Assessment & Plan (05/06/2023 8:04 AM EDT): Kegels Limits fluids before bed and when going out of the house Vaginal estrogen cream twice per week Consider trial of oxybutynin if incontinence is refractory to these measures Bilateral tinnitus 04/18/2023 Overview (02/02/2025): Tinnitus, bilateral; Note: Date Diagnosed: 04/18/2023 4:24 PM (H93.13) Other pruritus 04/18/2023 Overview (02/02/2025): Other pruritus; Note: Date Diagnosed: 04/18/2023 4:24 PM (L29.8) Sensorineural hearing loss (SNHL) of both ears 0 04/18/2023 Overview (02/02/2025): Sensorineural hearing loss, bilateral; Note: Date Diagnosed: 04/18/2023 2:04 PM (H90.3) Benign breast disease 02/01/2023 Mild persistent asthma 12/05/2021 Assessment & Plan (10/28/2024 11:33 AM EST): Stable currently, pt aware of s/s requiring urgent evaluation, Assessment & Plan (08/12/2024 11:39 AM EDT): CTAB currently Continue Breo and FLORENTIN Assessment & Plan (03/16/2024 1:15 PM EDT): CTAB currently Assessment & Plan (05/06/2023 8:08 AM EDT): Cont Breo, FLORENTIN Deep diaphragmatic breathing prn Obstructive sleep apnea syndrome 12/04/2021 History of cholecystectomy 11/17/2020 Fibromyalgia 12/25/2019 Biliary colic 12/16/2019 Cholelithiasis without obstruction 09/25/2019 Cervical spondylosis 08/28/2018 Scoliosis 08/28/2018 Degeneration of lumbar intervertebral disc 08/07 Assessment & Plan (03/16/2024 1:14 PM EDT): Trial Nortriptyline 10mg nightly for back pain, and fibromyalgia Can increase at next visit Arthritis of right knee 06/09/2018 Assessment & Plan (08/12/2024 11:39 AM EDT): Continue followup with [facility] ortho for viscosupplementation Assessment & Plan (02/13/2023 9:32 AM EDT): Pt in need of walker for aid in ambulation: 1. Does the patient have a mobility limitation that significantly impairs their ability to participate in any or all mobility related activities of daily living (MRADLs) such as toileting, feeding, dressing, grooming and bathing in customary locations in the home? Yes 2. Can the patient's mobility limitation be sufficiently resolved with the use of a cane or crutch? No 3. Will the functional mobility deficit be sufficiently resolved with the use of a walker? Yes 4. Is the patient able to safely use the walker? Yes 5. If a walker with wheels is needed, does the patient have upper body weakness which prevents them from picking up the walker? No 6. If a walker with wheels is needed, does the patient have limited use of one hand, neurological disorders or severe obesity? No Prediabetes 11/20/2017 Assessment & Plan (02/04/2025 11:21 AM EDT): Continue Metformin 500mg daily Lifestyle modifications, decrease sugar in diet Assessment & Plan (08/12/2024 11:37 AM EDT): With today's A1C of 6.7, this is technically now diabetic range Aguirre tart Metformin 500mg XR michelle Recheck in 3 months Lifestyle modifications and avoidance of simple sugars still advised Assessment & Plan (03/16/2024 1:14 PM EDT): Diet controlled Will start going to [facility] with her daughter as well Anxiety disorder 11/15/2017 Assessment & Plan (03/16/2024 1:15 PM EDT): On Fluoxetine 20mg daily Assessment & Plan (05/06/2023 8:10 AM EDT): Mixed anxiety and depression Discussed her sexual arousal/linido being low Continue treatment for urinary incontinence Not interested in couples counseling currently HTN (hypertension) 11/15/2017 Assessment & Plan (08/12/2024 11:39 AM EDT): Maintenance: Lisinopril 10mg daily BMP: Lab Results Component Value Date CREATININE 0.79 08/03/2024 CREATININE 0.72 02/07/2022 K 4.0 08/03/2024 Lipid Panel: ASCVD Risk: Calculate pending updated labs EKG: Obtain baseline at f/u - Aerobic exercise to reduce BP. Initial goal of 30 min walk 3-5x/week. Increase as tolerated. - low-sodium diet (goal: <2g/day) and heart healthy diet such as DASH to reduce BP and prevent ASCVD. - Home BP monitoring 1-2 x day with goal of <140/90. - Seek immediate medical attention for chest pain, palpitations, SOB, syncope, or sudden changes in mental status. - Do not change or discontinue current prescriptions without first consulting health care provider Assessment & Plan (03/16/2024 1:16 PM EDT): Maintenance: Lisinopril 10mg daily BMP: Lab Results Component Value Date CREATININE 0.70 03/09/2024 CREATININE 0.72 02/07/2022 K 3.5 03/09/2024 Lipid Panel: ASCVD Risk: Calculate pending updated labs EKG: Obtain baseline at f/u - Aerobic exercise to reduce BP. Initial goal of 30 min walk 3-5x/week. Increase as tolerated. - low-sodium diet (goal: <2g/day) and heart healthy diet such as DASH to reduce BP and prevent ASCVD. - Home BP monitoring 1-2 x day with goal of <140/90. - Seek immediate medical attention for chest pain, palpitations, SOB, syncope, or sudden changes in mental status. - Do not change or discontinue current prescriptions without first consulting health care provider Assessment & Plan (05/06/2023 8:09 AM EDT): Continue Lisinopril 5mg daily Goal <140/90 Acid reflux 11/15/2017 Assessment & Plan (05/06/2023 8:09 AM EDT): Continue Omeprazole 20mg daily H/O: hysterectomy 11/15/2017 HLD (hyperlipidemia) 11/15/2017 Assessment & Plan (05/06/2023 8:11 AM EDT): Continue Atorvastatin 40mg Check lipids annually Osteoarthritis 11/15/2017 Trigger finger 11/15/2017 Resolved Problems Problem Noted Date Diagnosed Date Resolved Date Cough in adult patient 10/28/202402/04 COVID-19 10/28/2024 02/04/2025 Assessment & Plan (10/28/2024 11:12 AM EST): Reviewed positive Covid results, supportive measures effective Reassuring resp exam today Pt understands transmission, no paxlovid prescribed today Gastroenteritis 11/27/2023 02/04/2025 Overview (11/27/2023): -likely viral gastroenteritis -no evidence of dehydration on exam -no evidence of acute abdomen -supportive care with fluids -ER precautions discussed - if symptoms do not improve, advise to call her GI doctor Assessment & Plan (11/27/2023 3:20 PM EST): -likely viral gastroenteritis -no evidence of dehydration on exam -no evidence of acute abdomen -supportive care with fluids -ER precautions discussed - if symptoms do not improve, advise to call her GI doctor Bronchitis 06/07/2023 08/12/2024 Assessment & Plan (06/07/2023 10:16 AM EDT): Drink plenty of fluids and rest Moderate persistent asthma with exacerbation 3 02/07/2023 Assessment & Plan (02/05/2023 1:36 PM EDT): Exacerbation based on increased sputum and cough x one week Not responsive to azithromycin Will switch to doxy 100mg BID x 7 days and prednisone 20mg daily x 5 days Continue FLORENTIN every 4 Hours prn followup if not improved after 48-72 hours on antibiotics Fluids, rest, vitamin C, zinc, motrin for body aches Encounters Date Type Department Care Team Description 03/19/2025 Orders Only [facility] [address] [place] [phone] Brooklyn Jalloh MD 03/19/2025 Telephone [facility] [address] [place] [address] Brooklyn Jalloh MD Lab Orders 03/19/2025 Telephone [facility] [address] [place] [phone] Brooklyn Jalloh MD Appointment Request 03/16/2025 Refill [facility] [address] [place] [address] Brooklyn Jalloh MD 03/01/2025 Refill [facility] [address] [place] [phone] Brooklyn Jalloh MD Mild persistent asthma without complication; Moderate persistent asthma with exacerbation 02/21/2025 Refill [facility] [address] [place] [phone] Brooklyn Jalloh MD 02/12/2025 Refill [facility] [address] [place] [phone] Brooklyn Jalloh MD 02/09/2025 9:40 AM EDT Office Visit [facility] [address] [place] [phone] Rfafi Mendoza MD Cough in adult patient (Primary Dx); Acute upper back pain 02/02/2025 11:00 AM EDT Office Visit [facility] [address] [place] [phone] Brooklyn Jalloh MD Prediabetes (Primary Dx); Dietary counseling; Exercise counseling; Class 1 obesity with serious comorbidity and body mass index (BMI) of 32.0 to 32.9 in adult, unspecified obesity type; Depression, recurrent (CMS/[facility]); Primary hypertension; Obstructive sleep apnea syndrome; Calcific tendonitis of right shoulder; Cervical spondylosis; Stress incontinence of urine 02/02/2025 Travel 01/29/2025 Telephone [facility] [address] [place] [phone] Brooklyn Jalloh MD Med Refill 01/26/2025 Patient Outreach [facility] [address] [place] [phone] Brooklyn Jalloh MD Pre-visit Planning (SDOH screening negative and tobacco screening negative) 01/25/2025 Refill [facility] [address] [place] [address] [phone] Brooklyn Jalloh MD Vitamin D deficiency 01/08/2025 11:00 AM EST Office Visit [facility] [address] [address] Trini Valdes MD Acute left-sided low back pain without sciatica (Primary Dx) 01/06/2025 Refill [facility] [address] [place] [address] [phone] Brooklyn Jalloh MD 12/31/2024 Refill [facility] [address] [place] [phone] Brooklyn Jalloh MD Biliary colic 12/24/2024 Refill [facility] [address] [facility] [place] [address] Lilian Holcomb FNP from Last 3 Months Immunizations Name Administration Dates Next Due Hep A, Adult 08/23/2023 Hep B, adult 12/18/2018,02/17/2018,12/23/2017 Influenza injectable quadriv alent IIV4 with preservative 08/12/2019,08/28/2018 Influenza injectable quadriv alent preservative free 08/23/2023,09/17/2022,10/17/2021,2019,11/15/2017 Influenza, seasonal, injecta ble, preservative free 09/28/2024 Tdap 12/23/2017 Zoster, Recombinant 05/31/2022,03/30/2022 Social History Tobacco Use Types Packs/Day Years Used Date Smoking Tobacco: Never Passive Smoke Exposure: Never Smokeless Tobacco: Never Tobacco Cessation:Counseling Given: Not Answered Alcohol Use Standard Drinks/Week Comments Never 0 [...] Orientation Straight 09/24/2022 10 :32 AM EDT Last Filed Vital Signs Vital Sign Reading Time Taken Comments Blood Pressure 127/77 02/09/2025 9:37 AM EDT Pulse 67 02/09/2025 9:37 AM EDT Temperature 36.9 ??C (98.4 ??F) 02/09/2025 9:37 AM ED T Respiratory Rate 16 02/09/2025 9:37 AM EDT Oxygen Saturation 99% 02/09/2025 9:37 AM EDT Inhaled Oxygen Concentration - - Weight 87.1 kg (192 lb) 02/09/2025 9:37 AM EDT Height 165.1 cm (5' 5 ) 02/02/2025 10:59 AM EDT Body Mass Index 31.95 02/02/2025 10:59 AM EDT Plan of Treatment Upcoming Encounters Date Type Department Care Team (Late st Contact Info) Description 03/30/2025 11:30 AM EDT Office Visit [facility] [address] [place] [address] Sarika Jenkins CNM [address] [place] [address] 04/20/2025 10:00 AM EDT Office Visit [facility] [address] [place] [address] Gage Montano 05/07/2025 11:15 AM EDT Office Visit [facility] [address] [place] [address] Brooklyn Jalloh MD [address] [place] [address] Health Maintenance Due Date Last Done Comments CT Colonography 1968 FIT DNA/Cologuard 1968 FIT 1968 FOBT 1968 Sigmoidoscopy 1968 Pneumococcal Vaccine: 50+ Years (1 of 2 - PCV) 02/25/1987 Pap Smear 02/25/1989 Cervical Cancer Screening 04/23/2023 HPV/Cotest 04/23/2023 04/23/2018 COVID-19 Vaccine ( season) 2024 11/07/2021, 03/29/2021, 03/01/2021 Dental Oral Exam 02/22/2025 08/24/2024 Dental Prophylaxis 02/22/2025 08/24/2024, 1 12/01/2022, 03/04/2023 Depression Screening 03/16/2025 03/16/2024, 03/16/20 24 Mammogram 08/18/2025 08/18/2024, 07/27, 08/08/2022, Additional history exists Dental X-Ray: Bitewings 08/25/2025 08/24/2024, 10/01 SDOH Screening 01/26/2026 01/26/2025 Diabetes: Hemoglobin A1C 02/02/2026 025, 08/11/2024, 02/04/2023, Additional history exists Tobacco Screening 02/02/2026 02/02/2025 Alcohol/Substance Use Screening 02/04/2026 02/04/2025 Dental X-Ray: Full Mouth 08/25/2027 08/24/2024, 04/26 Lipid Panel 10/11/2027 10/11/2022, 01/25, 08/09/2020 DTaP/Tdap/Td Vaccines (2 - Td or Tdap) 12/23/2027 12/23/2017 Colonoscopy 05/13/2028 05/13/2023, 04/25, 03/17/2018 Colorectal Cancer Screening 05/13/2028 RSV Patients and Patients Aged 60 years or older (1 - 1-dose 75+ series) 02/25/2043 Hepatitis B Vaccines Completed 12/18/2018, 02/17/2018, 12/23/2017 Zoster Vaccines Completed 05/31/2022, 03/30/2022 Hepatitis A Vaccines Aged Out 08/23/2023 No long er eligible based on patient's age to complete this topic HIV Screening Completed 08/18/2024, 10/02/2022 Hepatitis C Screening Completed 08/18/2024 , 10/02/2022, 08/01/2021 Influenza Vaccine Completed 09/28/2024, , 09/17/2022, Additional history exists HIB Vaccines Aged Out No longer eligi ble based on patient's age to complete this topic HPV Vaccines Aged Out No longer eligi ble based on patient's age to complete this topic IPV Vaccines Aged Out No longer eligi ble based on patient's age to complete this topic Meningococcal Vaccine Aged Out No tre gabriela eligible based on patient's age to complete this topic RSV under 20 months Aged Out No longe r eligible based on patient's age to complete this topic Rotavirus Vaccines Aged Out No longer eligible based on patient's age to complete this topic Procedures Procedure Name Priority Date/Time Associated Diagnosis Comments AMB REFERRAL TO ORTHOPAEDIC SURGERY Routine 02/11/2025 Calcific tendonitis of right shoulder POCT INFLUENZA B (ID NOW RAPID MOLECULAR) Routine 02/09/2025 10:04 AM EDT Cough in adult patient POCT INFLUENZA A (ID NOW RAPID MOLECULAR) Routine 02/09/2025 10:03 AM EDT Cough in adult patient POCT RAPID COVID ANTIGEN Routine 02/09/2025 9:55 AM EDT Cough in adult patient POCT GLYCATED HEMOGLOBIN, TOTAL Routine 02/02/2025 11:04 AM EDT Prediabetes POCT GLUCOSE Routine 02/02/2025 11:04 AM EDT Prediabetes POCT URINALYSIS DIPSTICK Routine 01/08/2025 10:52 AM EST Acute left-sided low back pain without sciatica PROPHYLAXIS - ADULT Routine 08/24/2024 1 0:00 AM EDT INTRAORAL - COMPLETE SERIES OF RADIOGRAPHIC IMAGES Routine 08/24/2024 10:00 AM EDT PERIODIC ORAL EVALUATION - ESTABLISHED PATIENT Routine 08/24/2024 10:00 AM EDT HEPATITIS C AB W/REFL TO HCV RNA, QN, PCR Routine 08/18/2024 11:14 AM EDT Elevated alkaline phosphatase level HIV 1/2 ANTIGEN/ANTIBODY, FOURTH GENERATION W/RFL Routine 08/18/2024 11:14 AM EDT Elevated alkaline phosphatase level BI US BREAST LIMITED RIGHT Routine 08/18/2024 Pain of right breast HM COLONOSCOPY Routine 05/13/2023 LIPID PANEL, STANDARD Routine 10/11/2022 8:02 AM EST ZZZ HISTORICAL HPV MRNA E6/E7 Routine 04/23/2018 10:06 AM EDT from Last 3 Months or Most Recently Relevant to Health Maintenance Results * Referral to Orthopaedic Surgery (02/11/2025) Jeremie Walker MD OUTPATIENT REFERRAL O RDERABLES Final Result * Influenza B (ID NOW Rapid Molecular) (02/09/2025 10:04 AM EDT) Influenza B Negative Negative, Indeterminate [facility] Swab 02/09/2025 10:0 4 AM EDT Raffi Mendoza MD POINT OF CARE TEST ENTER/EDIT OR DERABLES Final Result [facility] [address] [place] [address] [phone] * Influenza A (ID NOW Rapid Molecular) (02/09/2025 10:03 AM EDT) [facility] Influenza A Negative Negative, Indeterminate [facility] Swab 02/09/2025 10:0 3 AM EDT Result [facility] us Raffi Mendoza MD POINT OF CARE TEST ENTER/EDIT OR DERABLES Final Result [facility] [address] [place] [phone] * POCT Rapid COVID Ag (02/09/2025 9:55 AM EDT) [facility] Rapid COVID Ag Negative Swab 02/09/2025 9:55 AM EDT Result [facility] Raffi Mendoza MD POINT OF CARE TEST ENTER/EDIT OR DERABLES Final Result * (ABNORMAL) POCT HGB A1C (02/02/2025 11:04 AM EDT) [facility] Hemoglobin A1C 6.1(A) 4.0 - 6.0 % QC Media Lot # [id number] Lot# Expiration Date Blood 02/02/2025 11:0 4 AM EDT Result [facility] Brooklyn Jalloh MD POINT OF CARE TEST ENTER/EDIT ORDERABLES Final Result * POCT Glucose (02/02/2025 11:04 AM EDT) [facility] Glucose Blood, POC 84 60 - 200 mg/dL QC Media Lot # [id number] Lot# Expiration Date [id number] Blood Capillary blood specimen / Unknown 02/02/2025 11:04 AM EDT Result [facility] us Brooklyn Jalloh MD POINT OF CARE TEST ENTER/EDIT ORDERABLES Final Result * POCT urinalysis dipstick manually resulted (01/08/2025 10:52 AM EST) [facility] Color, UA Yellow Clarity, UA Clear Glucose, UA Negative Bilirubin, UA Negative Ketones, UA Negative Spec Grav, UA 1.020 Blood, UA Negative Negative, None Detected pH, UA 7.0 Protein, UA Negative Urobilinogen, UA 1.0 Leukocytes, UA Negative Negative, Rare, Trace Nitrite, UA Negative Negative, None Detected Urine 01/08/2025 10:5 2 AM EST Trini Valdes MD POINT OF CARE TEST ENTER/EDIT OR DERABLES Final Result * Hepatitis C Antibody with Reflex to HCV, RNA, Quantitative, Real-Time PCR (08/18/2024 11:14 AM EDT) [facility] Hepatitis C Antibody Nonreactive Nonreactive [facility] Comment:Antibodies to HCV no t detected; does not exclude early acuteHCV infection. Blood Venous blood specimen / Unknown 08/18/2024 11:14 AM EDT 08/18/2024 1:13 PM EDT Result [facility] Brooklyn Jalloh MD LAB BLOOD ORDERABLES Final Res ult [facility] [address] [place] [address] [phone] * HIV-1/2 Antigen and Antibodies, Fourth Generation, with Reflexes (08/18/2024 11:14 AM EDT) [facility] HIV AB/AG Nonreactive Nonreactive [facility] Comment:HIV-1 p24 Ag and/or HIV-1/HIV-2 Ab not detected.A test result that is nonreactive does not exclude thepossibility of exposure to or infection with HIV-1 and/orHIV-2. Nonreactive results in this assay for individualswith prior exposure to HIV-1 and/or HIV-2 may be due toantigen and antibody levels that are below the limit ofdetection of this assay.[facility] [employer] [facility] HIV Ag/Ab Combo assay result andsupplemental assay results should be interpreted inconjunction with the patient's clinical presentation,history and other laboratory results. If the results areinconsistent with clinical evidence, additional testing issuggested to confirm the result. Blood Venous blood specimen / Unknown 08/18/2024 11:14 AM EDT 08/18/2024 1:13 PM EDT Brooklyn Jalloh MD LAB BLOOD ORDERABLES Final Res ult [facility] [address] [place] [phone] * BI US Breast Limited Right (08/18/2024) Anatomical Region Laterality Modality Breast Right Ultrasound Result [facility] Lilian Holcomb HYDRAULIC BLOCKER IMG US PROCEDURES Final Result * (ABNORMAL) Hm Colonoscopy (05/13/2023) Colonoscopy Abnormal( A) Normal Comment:see scanned report 05/13/2023 Brooklyn Jalloh MD HEALTH MAINTENANCE Final Resul t * (ABNORMAL) LIPID PANEL, STANDARD (10/11/2022 8:02 AM EST) Chol/HDLC Ratio 3.7 <5.0 (calc) [facility] Cholesterol, Total 161 <200 mg/dL [facility] HDL Cholesterol 44(L) > OR = 50 mg/dL [facility] LDL Cholesterol 81 mg/dL (calc) [facility] Comment: Reference range: <100 ?? Desirable range <100 mg/dL for primary prevention; ?? <70 mg/dL for patients with CHD or diabetic patients ?? with > or = 2 CHD risk factors. ?? LDL-C is now calculated using the Mitch-Noe ?? calculation, which is a validated novel method providing ?? better accuracy than the Friedewald equation in the ?? estimation of LDL-C. ?? Mitch SHORE et al. ARACELI. 2013;310(19): 0742-7913 ?? (http://education.DadShed.Arachnys/faq/UDM559) Non-HDL Cholesterol 117 <130 mg/dL (calc) [facility] Comment: For patients with diabetes plus 1 major ASCVD risk ?? factor, treating to a non-HDL-C goal of <100 mg/dL ?? (LDL-C of <70 mg/dL) is considered a therapeutic ?? option. Triglycerides 276(H) <150 mg/dL [facility] Comment: ?? If a non-fasting specimen was collected, consider repeat triglyceride testing on a fasting specimen if clinically indicated. ?? Brisa et al. J. of Clin. Lipidol. 2015;9:129-169. ?? 10/11/2022 8:02 AM EST us Brooklyn Jalloh MD LAB BLOOD ORDERABLES Final Res ult [facility] * HPV mRNA E6/E7 (04/23/2018 10:06 AM EDT) HPV mRNA E6/E7 Not Detected NOT DETECTED [facility] Comment: This test was performed using the APTIMA(R) HPV Assay ([employer] This assay detects E6/E7 viral messenger RNA (mRNA) from 14 high-risk HPV types (16,18,31,33,35,39,45,51, 52,56,58,59,66,68). For additional information please refer to: http://education.Nistica.Arachnys/faq/PUR770q6 (This link is being provided for informational/ educational purposes only.) The analytical performance characteristics of this assay have been determined by [employer] [place], [place]. The modifications have not been cleared or approved by the FDA. This assay has been validated pursuant to the CLIA regulations and is used for clinical purposes. Test Performed by [facility] [place], [address] [place], [place] Toni Lopez M.D., Ph.D., Director of Laboratories , CLIA [id number] Please note: ??Effective 08/06/2016, HPV testing will be performed using [employer]'s APTIMA test which targets mRNA. Detecting mRNA instead of DNA, as in older methods, offers significant improvements in specificity. 04/23/2018 10:0 6 AM EDT Sarika Jenkins CNM HISTORICAL/NON ORDERABLE LABS Final Result [facility] [address] [place] [address], from Last 3 Months or Most Recently Relevant to Health Maintenance Insurance [facility] < [address] [place] [address] [facility] [address] [place] [address] Care Teams Electric Clock Mechanic Relationship Specialty Start Date End Date Brooklyn Jalloh MD [address] [place] [id number] PCP - General Family Medicine 07/17/21
[2025-03-20 10:06] LABS: Appearance Urine Clear; Color Urine Yellow; Glucose Urine UA Negative (Negative); Leukocyte Esterase Urine Negative (Negative); Nitrite Urine Negative (Negative); PH 6.5 (5.0-9.0); Specific Gravity - Urine <= 1.005 (1.005-1.025); Urine Blood Negative (Negative); Urine Ketones Negative (Negative); Urine Protein Negative (Neg-Trace)
[2025-03-20] MEDS: Ketorolac Tromethamine 30 MG/ML VIAL IM (10:31)
[2025-03-20 11:09] LABS: Influenza A PCR NEGATIVE (Negative); Influenza B PCR NEGATIVE (Negative); Resp Syncy Virus RNA Qual PCR NEGATIVE (Negative); SARS COV2 PCR INHOUSE NEGATIVE (Negative)
[2025-03-20 12:35] VITALS: BP 131/76; PULSE 73; RESP 18; TEMP 36.9; O2SAT 99
== END 2025-03-20 12:38 | disposition home or self-care (01) ==
PROVIDERS: Registered Nurse Emergency; Emergency Provider Emergency Medicine; PCP General Practice
DX: S39.012A Strain of muscle, fascia and tendon of lower back, initial encounter (principal); R10.2 Pelvic and perineal pain; M54.2 Cervicalgia; K59.00 Constipation, unspecified; R07.81 Pleurodynia; X58.XXXA Exposure to other specified factors, initial encounter; Y93.9 Activity, unspecified; Y92.9 Unspecified place or not applicable; Y99.8 Other external cause status; Z03.818 Encounter for observation for suspected exposure to other biological agents ruled out
CPT/HCPCS: 0241U; 71046; 72100; 74018; 81003; 96372; 99283; 99284; J1885

== ENCOUNTER → 2025-03-20 09:49 | Outpatient (BNV) | payer OTHER, SELFPAY | PROVIDERS: Emergency Provider Emergency Medicine; PCP General Practice; Visit Provider Radiology Diagnostic Radiology | DX: R07.9 Chest pain, unspecified (principal); R10.9 Unspecified abdominal pain; M54.9 Dorsalgia, unspecified | CPT/HCPCS: 71046; 72100; 74018 ==

== ENCOUNTER 2025-03-30 16:16 | Outpatient (REF) | payer OTHER, SELFPAY ==
--- OUTSIDE RECORDS SUMMARY | 2025-03-30 17:03 | XMS_ITS | Encounter Summary ---
Author Organization [employer] Address [address] [facility] 7t [place] [address] Care Team Providers Care Supervisor Looping Name Role Phone Brooklyn Jalloh MD Primary Care Provider [phone] Reason for Visit * Reason Onset Date Comments Med Refill 02/04/2023 Encounter Details Date Type Department Care Team ([facility] st Contact Info) Description 02/04/2023 Telephone [facility] MEDICINE [address] [place], [place] [phone] Brooklyn Jalloh MD [address] [place], [place] [phone] Med Refill Social History Tobacco Use Types [...] 3:33 PM EDT Medications were sent to [facility] today 02/04/23. * Telephone Encounter - Ankur Rich - 02/04/2023 3:01 PM EDT Tc from pt requesting med refill Prednisone 20 mg Ibuprofen 800 mg Doxycycline 100 mg documented in this encounter Plan of Treatment Upcoming Encounters Date Type Department Care Team (Late st Contact Info) Description 04/20/2025 10:00 AM EDT Office Visit [facility] CHC ADULT DENTAL [address] [place], [place] [phone] Gage Montano 04/26/2025 10:15 AM EDT Office Visit [facility] MED[facility]INE [address] [place] [address] Sarika Jenkins CNM [address] [place] [address] 05/07/2025 11:15 AM EDT Office Visit [facility] MED[facility]INE [address] [place] [address] Brooklyn Jalloh MD [address] [place] [address] documented as of this encounter Visit Diagnoses Not on filedocumented in this encounter Additional Health Concerns Assessment Noted Time PHQ-9 Depression Total Score: 6 02/05/20 11:27 AM EDT documented as of this encounter Care Teams Supervisor Looping Relationship Specialty Start Date End Date Brooklyn Jalloh MD [address] [place] [address] PCP - General Family Medicine 07/17/21 documented as of this encounter
--- OUTSIDE RECORDS SUMMARY | 2025-03-30 17:03 | XMS_ITS | Encounter Summary ---
Author Organization [employer] Address [address] [facility] [address] 7[address] [place] [address] Care Team Providers Care Operations Mgr Name Role Phone Brooklyn Jalloh MD Primary Care Provider [phone] Encounter Details Date Type Department Care Team (Latest Contact Info) Description 03/30/2025 Travel Social History Tobacco Use Types Packs/Day Years [...] Access Q2 Not on file 01/26/2025 Comments No Sex and Gender Information Value Date Recorded Sex Assigned at Female 09/24/2022 10:32 AM EDT Legal Sex Female 10:32 AM EDT Gender Identity Female 09/24/2022 10:32 AM EDT Sexual Orientation Straight 09/24/2022 10 :32 AM EDT documented as of this encounter Plan of Treatment Upcoming Encounters Date Type Department Care Team (Late st Contact Info) Description 04/20/2025 10:00 AM EDT Office Visit [facility] CHC ADULT DENTAL [address] [place] [address] Gage Montano 04/26/2025 10:15 AM EDT Office Visit [facility] MEDICINE [address] [place] [address] Sarika Jenkins CNM [address] [place] [address] 05/07/2025 11:15 AM EDT Office Visit [address] [address] Brooklyn Jalloh MD [address] [place] [address] documented as of this encounter Visit Diagnoses Not on filedocumented in this encounter Additional Health Concerns Assessment Noted Time PHQ-9 Depression Total Score: 5 03/16/20 24 11:45 AM EDT documented as of this encounter Care Teams Operations Mgr Relationship Specialty Start Date End Date Brooklyn Jalloh MD [address] [place] [address] PCP - General Family Medicine 07/17/21 documented as of this encounter
--- OUTSIDE RECORDS SUMMARY | 2025-03-30 17:03 | XMS_ITS | Encounter Summary ---
Author Organization [employer] Address [address] [facility] 7t [place] [address] Care Team Providers Care Model And Mold Maker Plaster Name Role Phone Brooklyn Jalloh MD Primary Care Provider [phone] Reason for Visit * Reason Onset Date Comments chartprep 03/26/2025 Encounter Details Date Type Department Care Team ([facility] st Contact Info) Description 03/26/2025 Telephone [facility] MEDICINE [address] [place], [place] [phone] Brooklyn Jalloh MD 230 [place], [place] [phone] chartprep Social History Tobacco Use Types Packs/Day Years [...] encounter Miscellaneous Notes * Telephone Encounter - Ann Walker MA - 03/26/2025 3:55 PM EDT ..Chart Prep Labs: done Images: not applicable Vaccines due: Covid Due and PCV20 Due Referrals: Not Applicable Screenings: Not Applicable Overdue care gaps: Ph9/Glu documented in this encounter Plan of Treatment Upcoming Encounters Date Type Department Care Team (Late st Contact Info) Description 04/20/2025 10:00 AM EDT Office Visit [facility] CHC ADULT DENTAL [address] [place] [address] Gage Montano 04/26/2025 10:15 AM EDT Office Visit [facility] MEDICINE [address] [place] [address] Sarika Jenkins CNM [address] [place] [address] 05/07/2025 11:15 AM EDT Office Visit [facility] MEDICINE [address] [place] [address] Brooklyn Jalloh MD [address] [place] [address] documented as of this encounter Visit Diagnoses Not on filedocumented in this encounter Additional Health Concerns Assessment Noted Time PHQ-9 Depression Total Score: 5 03/16/20 24 11:45 AM EDT documented as of this encounter Care Teams Model And Mold Maker Plaster Relationship Specialty Start Date End Date Brooklyn Jalloh MD [address] [place] [address] PCP - General Family Medicine 07/17/21 documented as of this encounter
--- OUTSIDE RECORDS SUMMARY | 2025-03-30 17:03 | XMS_ITS | Encounter Summary ---
Author Organization [employer] Address [address] [facility] 7t [place] [address] Care Team Providers Care Siebel Administrator Name Role Phone Brooklyn Jalloh MD Primary Care Provider Reason for Visit * Reason Onset Date Comments Medication Question 08/20/2024 Results 08/20/2024 Encounter Details Date Type Department Care Team ([facility] st Contact Info) Description 08/20/2024 Telephone [facility] MEDICINE [address] [place], [place] [phone] Brooklyn Jalloh MD [address] [place], [place] [phone] Medication Question; Results Social History Tobacco Use [...] 2:40 PM EDT TC placed to pt [phone] via [employer] in regards to below message. RN informed [...] - 08/20/2024 3:47 PM EDT Noted. Per [employer], shoulder Xray performed on 08/11/24 however interpretation [...] BW. Pt verbalized understanding. Pt also requesting lftacio-zmxcebzgtowfr-wiltvopn medication be Rx'd again for her migraines. Pt reports she last p/u medication on 02/18/24 for a 2 month supply. Pt reports the providers name on the bottle is Georgette Bennykatherine . RN unable to find active RX [...] results: Labs Date when done: 08/18/24 Facility: [facility] Pt is also requesting Eletriptan medication for migraines but writer technical publications did not see medication on med list. Please contact pt at [phone]. (Serbian Speaker) documented in this encounter Plan of Treatment Upcoming Encounters Date Type Department Care Team (Late st Contact Info) Description 04/20/2025 10:00 AM EDT Office Visit [facility] CHC ADULT DENTAL [address] [place] [address] Gage Montano 04/26/2025 10:15 AM EDT Office Visit [facility] MED[facility]INE [address] [place] [address] Sarika Jenkins CNM [address] [place] [address] 05/07/2025 11:15 AM EDT Office Visit [facility] [address] [place] [address] Brooklyn Jalloh MD [address] [place] [address] documented as of this encounter Visit Diagnoses Not on filedocumented in this encounter Additional Health Concerns Assessment Noted Time PHQ-9 Depression Total Score: 5 03/16/20 11:45 AM EDT documented as of this encounter Care Teams Siebel Administrator Relationship Specialty Start Date End Date Brooklyn Jalloh MD [address] [place] [address] PCP - General Family Medicine 07/17/21 documented as of this encounter
--- OUTSIDE RECORDS SUMMARY | 2025-03-30 17:03 | XMS_ITS | Encounter Summary ---
Author Organization [employer] Address [address] [facility] [address] 7[address] [place] [address] Care Team Providers Care Cloth Dyeing Range Tender Name Role Phone Brooklyn Jalloh MD Primary Care Provider [phone] Encounter Details Date Type Department Care Team ([facility] st Contact Info) Description 08/26/2024 Orders Only [facility] MEDICINE [address] [place], [place] [phone] Brooklyn Jalloh MD 230 [place], [place] [phone] Elevated alkaline phosphatase level (Primary Dx) Social [...] Description 04/20/2025 10:00 AM EDT Office Visit [facility] CHC ADULT DENTAL [address] [place] [address] Gage Montano 04/26/2025 10:15 AM EDT Office Visit [facility] MEDICINE [address] [place] [address] Sarika Jenkins CNM [address] [place] [address] 05/07/2025 11:15 AM EDT Office Visit [facility] MEDICINE [address] [place] [address] Brooklyn Jalloh MD [address] [place] [address] Scheduled Orders Name Type Priority Associated Diagnoses [...] documented as of this encounter Care Teams Cloth Dyeing Range Tender Relationship Specialty Start Date End Date Brooklyn Jalloh MD [address] [place] [address] PCP - General Family Medicine 07/17/21 documented as of this encounter
--- OUTSIDE RECORDS SUMMARY | 2025-03-30 17:03 | XMS_ITS | Encounter Summary ---
Author Organization [employer] Address [address] [facility] [address] [facility] [address] [place] [address] Care Team Providers Care Product Marketing Engineer Name Role Phone Brooklyn Jalloh MD Primary Care Provider [phone] Encounter Details Date Type Department Care Team (Late st Contact Info) Description 02/15/2023 Orders Only [facility] MEDICINE 230 [place], [place] [phone] Brooklyn Jalloh MD [address] [place], [place] [phone] Ingrown toenail (Primary Dx) Social History Tobacco [...] 10:00 AM EDT Office Visit [facility] CHC ADULT DENTAL [address] [place] [address] Gage Montano 04/26/2025 10:15 AM EDT Office Visit [facility] MEDICINE [address] [place] [address] [phone] Sarika Jenkins CNM [address] [place] [address] 05/07/2025 11:15 AM EDT Office Visit [address] [address] Brooklyn Jalloh MD [address] [place] [address] documented as of this encounter Visit Diagnoses Diagnosis Ingrown toenail- Primary Ingrowing nail documented in this encounter Additional Health Concerns Assessment Noted Time PHQ-9 Depression Total Score: 6 02/05/20 23 11:27 AM EDT documented as of this encounter Care Teams Product Marketing Engineer Relationship Specialty Start Date End Date Brooklyn Jalloh MD [address] [place] [address] PCP - General Family Medicine 07/17/21 documented as of this encounter
--- OUTSIDE RECORDS SUMMARY | 2025-03-30 17:03 | XMS_ITS | Encounter Summary ---
Author Organization [employer] Address [address] [facility] [address] 7[address] [place] [address] Care Team Providers Care Recyclable Materials Collector Name Role Phone Brooklyn Jalloh MD Primary Care Provider [phone] Reason for Visit * Reason Onset Date Comments Referral 08/05/2024 Encounter Details Date Type Department Care Team ([facility] st Contact Info) Description 08/05/2024 Telephone [facility] MEDICINE 230 [place], [place] [phone] Brooklyn Jalloh MD 230 [place], [place] [phone] Referral Social History Tobacco Use Types Packs/Day [...] of the breast to be sent to [facility] Address: [address] [place] [address] Fax- [phone] documented in this encounter Plan of Treatment Upcoming Encounters Date Type Department Care Team (Late st Contact Info) Description 04/20/2025 10:00 AM EDT Office Visit [facility] CHC ADULT DENTAL [address] [place] [address] Gage Montano 04/26/2025 10:15 AM EDT Office Visit [facility] MEDICINE [address] [place] [phone] Sarika Jenkins CNM [address] [place] [phone] 05/07/2025 11:15 AM EDT Office Visit [facility] MED[facility]INE [address] [place] [address] Brooklyn Jalloh MD [address] [place] [address] documented as of this encounter Visit Diagnoses Not on filedocumented in this encounter Additional Health Concerns Assessment Noted Time PHQ-9 Depression Total Score: 5 03/16/20 24 11:45 AM EDT documented as of this encounter Care Teams Recyclable Materials Collector Relationship Specialty Start Date End Date Brooklyn Jalloh MD [address] [place] [address] PCP - General Family Medicine 07/17/21 documented as of this encounter
--- OUTSIDE RECORDS SUMMARY | 2025-03-30 17:03 | XMS_ITS | Encounter Summary ---
Author Organization [employer] Address [address] [facility] [address] 7[address] [place] [address] Care Team Providers Care Cnc Operator Programmer Name Role Phone Brooklyn Jalloh MD Primary Care Provider [phone] Encounter Details Date Type Department Care Team ([facility] st Contact Info) Description 08/25/2024 Orders Only [facility] MEDICINE [address] [place] [address] ProviderDipak MD Social History Tobacco Use Types [...] Description 04/20/2025 10:00 AM EDT Office Visit [facility] CHC ADULT DENTAL [address] [place] [address] Gage Montano 04/26/2025 10:15 AM EDT Office Visit [facility] MEDICINE [address] [place] [address] Sarika Jenkins CNM [address] [place] [address] 05/07/2025 11:15 AM EDT Office Visit [facility] 230 [place] [address] Brooklyn Jalloh MD 230 [place] [address] documented as of this encounter Procedures Procedure Name Priority Date/Time Associated Diagnosis Comments MAMMOGRAPHY Routine 08/16/2024 11:24 AM EDT documented in this encounter Results * Mammography (08/16/2024 11:24 AM EDT) Mammogram BIRADS 2 Normal, Abnormal, BIRADS 1 , BIRADS 2 Anatomical Region Laterality Modality Other Historical Provider HEALTH MAINTENANCE Edited Result - Final documented in this encounter Visit Diagnoses Not on filedocumented in this encounter Additional Health Concerns Assessment Noted Time PHQ-9 Depression Total Score: 5 03/16/20 24 11:45 AM EDT documented as of this encounter Care Teams Cnc Operator Programmer Relationship Specialty Start Date End Date Brooklyn Jalloh MD [address] [place] [address] PCP - General Family Medicine 07/17/21 documented as of this encounter
--- OUTSIDE RECORDS SUMMARY | 2025-03-30 17:03 | XMS_ITS | Encounter Summary ---
Author Organization [employer] Address 75 [facility] 7t [place] [address] Care Team Providers Care Kiln Placer Name Role Phone Brooklyn Jalloh MD Primary Care Provider [phone] Encounter Details Date Type Department Care Team (Late st Contact Info) Description 01/28/2023 Orders Only [facility] MEDICINE [address] [place] [address] Sarika Jenkins CNM [address] [place] [address] Candidiasis of vulva and vagina (Primary Dx) Social History Tobacco Use Types [...] suspected to have Coronavirus/COVID-19? No / Unsure 01/24/2023 10:39 AM EST documented as of this encounter Progress Notes * Sarika Jenkins CNM - 01/28/2023 9:48 AM EST Encounter for rx send in. documented in this encounter Plan of Treatment Upcoming Encounters Date Type Department Care Team (Late st Contact Info) Description 04/20/2025 10:00 AM EDT Office Visit [facility] CHC ADULT DENTAL [address] [place] [address] Gage Montano 04/26/2025 10:15 AM EDT Office Visit [facility] MEDICINE [address] [place] [address] Sarika Jenkins CNM [address] [place] [address] 05/07/2025 11:15 AM EDT Office Visit [address] [address] Brooklyn Jalloh MD [address] [place] [address] documented as of this encounter Visit Diagnoses Diagnosis Candidiasis of vulva and vagina- Primary documented in this encounter Care Teams Kiln Placer Relationship Specialty Start Date End Date Brooklyn Jalloh MD [address] [place] [address] [phone] PCP - General Family Medicine 07/17/21 documented as of this encounter
--- OUTSIDE RECORDS SUMMARY | 2025-03-30 17:03 | XMS_ITS | Encounter Summary ---
Author Organization [employer] Address 75 [facility] 7t [place] [address] Care Team Providers Care Secretary Board Of Commissioners Name Role Phone Brooklyn Jalloh MD Primary Care Provider [phone] Reason for Visit * Reason Comments Gynecologic Exam Encounter Details Date Type Department Care Team ([facility] st Contact Info) Description 03/30/2025 11:30 AM EDT Office Visit [facility] MEDICINE [address] [place], [place] [phone] Sarika Jenkins CNM [address] [place] [address] Cervical cancer screening (Primary Dx); Atrophic vaginitis Social History Tobacco Use Types Packs/Day Years [...] AM EDT documented as of this encounter Last Filed Vital Signs Vital Sign Reading Time Taken Comments Blood Pressure 124/82 03/30/2025 11:41 AM EDT Pulse 78 03/30/2025 11:41 AM EDT Temperature 36.3 ??C (97.3 ??F) 03/30/2025 11:41 AM E DT Respiratory Rate 20 03/30/2025 11:41 AM EDT Oxygen Saturation 98% 03/30/2025 11:41 AM EDT Inhaled Oxygen Concentration - - Weight 87.2 kg (192 lb 3.2 oz) 03/30/2025 11:41 AM EDT Height 167.6 cm (5' 6 ) 03/30/2025 11:41 AM EDT Body Mass Index 31.02 03/30/2025 11:41 AM EDT documented in this encounter Progress Notes * Sarika Jenkins CNM - 03/30/2025 11:30 AM EDT Subjective Patient ID: Machelle Stout Jose Barroso is a 55 y.o. female who presents for pap Last visit with pa 2022, rx'd vaginal estrogen. Supracervical hysterectomy with BSO for fibroids. Pap NIL/HPV negative 03/2018. Gonorrhea/Chlamydia/trichomonas negative 06/2024. HIV, Hep C negative. HBV vaccine in 2019. Normal mammogram 08/2024. 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 No concerns for safety but unhappy in relationship. Has no interest orenjoyment with sex. Has some vaginal discomfort with sex. Previously rx'd vaginal estrogen but hasn't used recently. Partner is on testosterone for hypogonadism, and is pressuring Machelle to have sex. Vasomotor symptoms manageable. No vaginal or urinary symptoms. Has therapist who she sees regularly. Considering couples counseling. Review of Systems Genitourinary: Positive for dyspareunia. Negative for dysuria, frequency, genital sores, hematuria,menstrual problem, pelvic pain, urgency, vaginal bleeding, vaginal discharge and vaginal pain. No abnormal pap, no abnormal bleeding, no breast pain, no breast mass, no nipple discharge Objective BP 124/82 (BP Location: Left arm, Patient Position: Sitting, BP Cuff Size: Large adult) Pulse 78 Temp 97.3 ??F (36.3 ??C) (Temporal) Resp 20 Ht 5' 6 (1.676 m) Wt 192 lb 3.2 oz (87.2 kg) LMP (LMP Unknown) SpO2 98% BMI 31.02 kg/m?? Physical Exam Exam conducted with a field placement director present (Karie eHndricks). Constitutional: Appearance: Normal appearance. Chest: Breasts: Right: Normal. No swelling, bleeding, inverted nipple, mass, nipple discharge, skin change or tenderness. Left: Normal. No swelling, bleeding, inverted nipple, mass, nipple discharge, skin change or tenderness. Genitourinary: General: Normal vulva. Labia: Right: No rash, tenderness, lesion or injury. Left: No rash, tenderness, lesion or injury. Vagina: Normal. No signs of injury and foreign body. No vaginal discharge, erythema, tenderness, bleeding or lesions. Cervix: No cervical motion tenderness, discharge, friability, lesion, erythema, cervical bleeding or eversion. Uterus: Normal. Adnexa: Right adnexa normal and left adnexa normal. Right: No mass, tenderness or fullness. Left: No mass, tenderness or fullness. Comments: Mild atrophy changes No tenderness of pelvic floor muscles Lymphadenopathy: Upper Body: Right upper body: No supraclavicular or axillary adenopathy. Left upper body: No supraclavicular or axillary adenopathy. Neurological: Mental Status: She is alert. Psychiatric: Mood and Affect: Mood normal. Behavior: Behavior normal. Assessment/Plan Diagnoses and all orders for this visit: Cervical cancer screening - Pap Smear Cotest today. Repeat 5y if normal. Atrophic vaginitis - estradiol (Estrace) 0.1 MG/GM vaginal cream; 1g vaginally nightly x 14 days, then 1 g vaginally twice a week Resume vaginal estrogen as prescribed. Reviewed this will help with discomfort, improve blood flow to tissue but will not address underlying issues with partner which are also contributing to sexual health concerns. Urged to continue to work with therapist, explore couples counseling. Declines treatment for vasomotor symptoms, but we can revisit at followup. Followup 4-6 weeks documented in this encounter Plan of Treatment Upcoming Encounters Date Type Department Care Team (Late st Contact Info) Description 04/20/2025 10:00 AM EDT Office Visit [facility] CHC ADULT DENTAL [address] [place] [address] Gage Montano 04/26/2025 10:15 AM EDT Office Visit [address] [address] Sarika Jenkins CNM [address] [place] [address] 05/07/2025 11:15 AM EDT Office Visit [address] [address] Brooklyn Jalloh MD [address] [place] [address] Scheduled Orders Name Type Priority Associated Diagnoses Orde r Schedule Pap Smear Pathology and Cytology Routine Cervical cancer screening Ordered: 03/30/2025 documented as of this encounter Visit Diagnoses Diagnosis Cervical cancer screening- Primary Screening for malignant neoplasm of the cervix Atrophic vaginitis Postmenopausal atrophic vaginitis documented in this encounter Additional Health Concerns Assessment Noted Time PHQ-9 Depression Total Score: 5 03/16/20 24 11:45 AM EDT documented as of this encounter Care Teams Secretary Board Of Commissioners Relationship Specialty Start Date End Date Brooklyn Jalloh MD 230 [place] [address] PCP - General Family Medicine 07/17/21 documented as of this encounter
--- OUTSIDE RECORDS SUMMARY | 2025-03-30 17:03 | XMS_ITS | Encounter Summary ---
Author Organization [employer] Address [address] [facility] [address] 7t [place] [address] Care Team Providers Care Prevention Rn Name Role Phone Brooklyn Jalloh MD Primary Care Provider [phone] Encounter Details Date Type Department Care Team (Late st Contact Info) Description 03/07/2023 Orders Only [facility] MEDICINE [address] [place], [place] [phone] Brooklyn Jalloh MD 230 [place] [address] Rash of face (Primary Dx) Social History [...] 10:00 AM EDT Office Visit [facility] CHC ADULT DENTAL [address] [place] [address] Gage Montano 04/26/2025 10:15 AM EDT Office Visit [facility] MEDICINE [address] [place], [place] [phone] Sarika Jenkins CNM [address] [place] [address] 05/07/2025 11:15 AM EDT Office Visit [address] [address] Brooklyn Jalloh MD [address] [place] [address] [phone] documented as of this encounter Visit Diagnoses Diagnosis Rash of face- Primary documented in this encounter Additional Health Concerns Assessment Noted Time PHQ-9 Depression Total Score: 6 02/05/20 23 11:27 AM EDT documented as of this encounter Care Teams Prevention Rn Relationship Specialty Start Date End Date Brooklyn Jalloh MD [address] [place] [address] [phone] PCP - General Family Medicine 07/17/21 documented as of this encounter
--- OUTSIDE RECORDS SUMMARY | 2025-03-30 17:03 | XMS_ITS | Encounter Summary ---
Author Organization [employer] Address 75 [facility] 7t [place] [address] Care Team Providers Care Personnel Adviser Name Role Phone Brooklyn Jalloh MD Primary Care Provider [phone] Reason for Visit * Reason Onset Date Comments Durable Medical Equipment 02/07/2023 Encounter Details Date Type Department Care Team ([facility] st Contact Info) Description 02/07/2023 Telephone [facility] MEDICINE 230 [place], [place] [phone] Brooklyn Jalloh MD [address] [place], [place] [phone] Durable Medical Equipment Social History Tobacco Use [...] status on walker please contact pt at [phone]. documented in this encounter Plan of Treatment Upcoming Encounters Date Type Department Care Team (Late st Contact Info) Description 04/20/2025 10:00 AM EDT Office Visit [facility] CHC ADULT DENTAL [address] [place] [address] Gage Montano 04/26/2025 10:15 AM EDT Office Visit [facility] MEDICINE [address] [place] [address] Sarika Jenkins CNM [address] [place] [address] 05/07/2025 11:15 AM EDT Office Visit [facility] [address] [place] [address] Brooklyn Jalloh MD [address] [place] [address] documented as of this encounter Visit Diagnoses Not on filedocumented in this encounter Additional Health Concerns Assessment Noted Time PHQ-9 Depression Total Score: 6 02/05/20 23 11:27 AM EDT documented as of this encounter Care Teams Personnel Adviser Relationship Specialty Start Date End Date Brooklyn Jalloh MD [address] [place] [phone] PCP - General Family Medicine 07/17/21 documented as of this encounter
--- OUTSIDE RECORDS SUMMARY | 2025-03-30 17:03 | XMS_ITS | Encounter Summary ---
Author Organization [employer] Address 75 [facility] 7t [place] [address] Care Team Providers Care Ton Cylinder Inspector Name Role Phone Brooklyn Jalloh MD Primary Care Provider [phone] Reason for Visit * Reason Onset Date Comments triage 03/06/2023 Encounter Details Date Type Department Care Team ([facility] st Contact Info) Description 03/06/2023 Telephone [facility] MEDICINE [address] [place], [place] [phone] Brooklyn Jalloh MD [address] [place], [place] [phone] triage Social History Tobacco Use Types Packs/Day [...] 03/06/2023 3:39 PM EDT triage call with [facility] [place] [id number] Pt reports itchiness on face. Pt reports this has been for two days and has some red spots now. Pt has had this before in different areas of the body. Pt has seen product promoter retail pet Cassie and jakob to help but doesn't know the name of the cream. Pt is offered to come to [facility] to be seen by provider but, declines. Pt wants only to have apt with product promoter retail pet will send to PCP nurse team to [...] now The caller accepted this outcome speaks croatian documented in this encounter Plan of Treatment Upcoming Encounters Date Type Department Care Team (Late st Contact Info) Description 04/20/2025 10:00 AM EDT Office Visit [facility] ADULT [facility]AL [address] [place] [address] Gage Montano 04/26/2025 10:15 AM EDT Office Visit [facility] MEDICINE [address] [place] [address] Sarika Jenkins CNM [address] [place] [address] 05/07/2025 11:15 AM EDT Office Visit [address] [address] Brooklyn Jalloh MD [address] [place] [address] documented as of this encounter Visit Diagnoses Not on filedocumented in this encounter Additional Health Concerns Assessment Noted Time PHQ-9 Depression Total Score: 6 02/05/20 23 11:27 AM EDT documented as of this encounter Care Teams Ton Cylinder Inspector Relationship Specialty Start Date End Date Brooklyn Jalloh MD [address] [place] [address] PCP - General Family Medicine 07/17/21 documented as of this encounter
--- OUTSIDE RECORDS SUMMARY | 2025-03-30 17:04 | XMS_ITS | Encounter Summary ---
Author Organization [employer] Address 75 [facility] 7t [place] [address] Care Team Providers Care Living Advisor Name Role Phone Brooklyn Jalloh MD Primary Care Provider [phone] Encounter Details Date Type Department Care Team (Late st Contact Info) Description 07/23/2023 Abstract [facility] MEDICINE [address] [place] [address] [phone] Brooklyn Jalloh MD [address] [place] [address] [phone] Social History Tobacco Use Types Packs/Day Years [...] Description 04/20/2025 10:00 AM EDT Office Visit [facility] CHC ADULT DENTAL [address] [place] [address] Gage Montano 04/26/2025 10:15 AM EDT Office Visit [facility] MEDICINE [address] [place] [address] [phone] Sarika Jenkins CNM 230 [place] [address] 05/07/2025 11:15 AM EDT Office Visit [facility] MEDICINE [address] [place], [place] [phone] Brooklyn Jalloh MD 230 [place], [place] [phone] documented as of this encounter Visit Diagnoses Not on filedocumented in this encounter Additional Health Concerns Assessment Noted Time PHQ-9 Depression Total Score: 6 02/05/20 23 11:27 AM EDT documented as of this encounter Care Teams Living Advisor Relationship Specialty Start Date End Date Brooklyn Jalloh MD [address] [place] [address] [phone] PCP - General Family Medicine 07/17/21 documented as of this encounter
--- OUTSIDE RECORDS SUMMARY | 2025-03-30 17:04 | XMS_ITS | Encounter Summary ---
Author Organization [employer] Address [address] [place] [address] 7t [place] [address] Care Team Providers Care Resident Care Technician Name Role Phone Brooklyn Jalloh MD Primary Care Provider [phone] Reason for Referral * (Routine) - Closed Specialty Diagnoses / Procedures Referred By Contselvin t Referred To Contact Diagnoses Benign breast disease Procedures BI Mammogram Diagnostic same day Diagnostic same/ Day Right Brooklyn Jalloh MD [address] [place] [address] Phone: tel: fax: Referral ID Status Reason Start Date Expiration Date Visits Re quested Visits Authorized [id number] Closed 03/20/2023 09/16/2023 1 1 Encounter Details Date Type Department Care Team (Late st Contact Info) Description 03/20/2023 Orders Only [facility] MEDICINE 230 [place], [place] [phone] Brooklyn Jalloh MD [address] [place], [place] [phone] Benign breast disease (Primary Dx) Social History [...] 10:00 AM EDT Office Visit [facility] CHC ADULT DENTAL [address] [place] [address] Gage Montano 04/26/2025 10:15 AM EDT Office Visit [facility] MEDICINE [address] [place] [address] Sarika Jenkins CNM [address] [place] [address] 05/07/2025 11:15 AM EDT Office Visit [address] [address] Brooklyn Jalloh MD [address] [place] [address] Scheduled Orders Name Type Priority Associated Diagnoses [...] documented as of this encounter Care Teams Resident Care Technician Relationship Specialty Start Date End Date Brooklyn Jalloh MD [address] [place] [address] PCP - General Family Medicine 07/17/21 documented as of this encounter
--- OUTSIDE RECORDS SUMMARY | 2025-03-30 17:04 | XMS_ITS | Encounter Summary ---
Author Organization [employer] Address 75 [facility] 7t [place] [address] Care Team Providers Care Lasting Machine Operator Hand Method Name Role Phone Brooklyn Jalloh MD Primary Care Provider [phone] Reason for Visit * Reason Onset Date Comments referral 11/29/2023 Encounter Details Date Type Department Care Team ([facility] st Contact Info) Description 11/29/2023 Telephone [facility] MEDICINE [address] [place], [place] [phone] Brooklyn Jalloh MD 230 [place], [place] [phone] referral Social History Tobacco Use Types Packs/Day [...] Tc from pt requesting a Referral for [facility] Gastrology with Dr. Aldrich @ [address] [place] [address] to be further Evaluated for her Diagnoses @ the [facility] of gastroenteritis. Please contact pt @ [phone] documented in this encounter Plan of Treatment Upcoming Encounters Date Type Department Care Team (Late st Contact Info) Description 04/20/2025 10:00 AM EDT Office Visit [facility] CHC ADULT DENTAL [address] [place] [address] Gage Montano 04/26/2025 10:15 AM EDT Office Visit [facility] MEDICINE [address] [place] [address] Sarika Jenkins CNM [address] [place] [address] 05/07/2025 11:15 AM EDT Office Visit [facility] [address] [place] [address] Brooklyn Jalloh MD [address] [place] [address] documented as of this encounter Visit Diagnoses Not on filedocumented in this encounter Additional Health Concerns Assessment Noted Time PHQ-9 Depression Total Score: 6 02/05/20 23 11:27 AM EDT documented as of this encounter Care Teams Lasting Machine Operator Hand Method Relationship Specialty Start Date End Date Brooklyn Jalloh MD [address] [place] [address] PCP - General Family Medicine 07/17/21 documented as of this encounter
--- OUTSIDE RECORDS SUMMARY | 2025-03-30 17:04 | XMS_ITS | Data Portability ---
Author Organization [place] - [facility], Allergy Address [address] [place] [phone] Assessment Encounter Date Assessment Date Assessment LastModified [...] oil 0.01 % ear drops 2024 025 [facility], [address] [facility], [place], [phone], 12/25/2024 12:01:14 Patient TargetsNo targets recorded. Patient [...] Address Organization Details Recorded Time Bilateral tinnitus 91081878267 02 Active 2022 Tinnitus, bilateral ; Note: Date Diagnosed : 04/18/2023 4:24 PM (H93.13) Not Available [facility] 03:26:19 Sensorine ural hearing loss of bilateral ears 636661564 Active 2022 Sensorine ural hearing loss, bilateral ; Note: Date Diagnosed : 04/18/2023 2:04 PM (H90.3) Not Available [facility] 4 03:26:18 Itching of skin 882908263 Active 2022 Other pruritus; Note: Date Diagnosed : 04/18/2023 4:24 PM (L29.8) Not Available [facility] 03:26:18 Problem Notes None recorded. Procedures Surgical History Date Name Laterality Status Provider Name and Address Organization Details Recorded Time 01/06/2025 Air & Speech Audio with Tymps - 22843, 58186 & 16564 completed NAJMA DENIS, [address], [address], [facility] - [facility] 01/06/2025 09:33:21 Imaging Results Imaging Date Name Status LastModified by Organiz ation Details LastModified Time 01/06/2025 audiogram completed [facility] Information no t available 01/06/2025 10:40:01 Procedure Notes None recorded. Medical Equipment None Reported. Allergies Allergen ID Allergen Name Allergen Category Reaction Reaction Severity Criticality Documentation Date Start Date Code Code System Note Provider Name and Address Organization Details Recorded Time 881699 Fish (substanc e) food,medi cation Not available Not available Not available 04/07/2024 92061 1005 SNOMED React ion: Hives , Rash; Not Available [facility] 4 01:27:00 Medications Name Sig Start [...] 800 mg tablet active Medicatio n ID: [id number] Br and Name: ibuprofen Send Method: E-Prescri bed Subs Allowed: subs OK Medica tionGener icName: ibuprofen Not Available Not Available Not Available fluconazol e 150 mg tablet TAKE 1 TABLET BY MOUTH FOR 1 DOSE active Not Available Not Available No t Available senna 8.6 mg tablet active Medicatio n ID: [id number] Br and Name: senna Sen d Method: [...] Updated DateTime 12/25/2024 165.1 cm 25.8 kg/m2 05354.82 g Kirsten Solis [place] - [facility] 12/25/2024 11:38:16 Social History None recorded. Functional Status None recorded. Mental Status None recorded. Family History Nothing Reported. Medical History No medical history recorded. Gynecological HistoryNo gynecological history recorded. Obstetrics History GPAL:G 0 P 0 0 0 0 Past Encounters Encounter ID Performer Location Encounter Start Date Encounter Closed Date Diagnosis/Indication Diagnosis SNOMED-CT Code Diagnosis ICD10 Code Diagnosis Note [id number] IMMANUEL CARCAMO PA-C [facility] [address] [address] 12/25/2024 11:28:54 12/25/2024 11:54:46 Itching of skin 742612069 L29.89 Sensorineu ral hearing loss of bilateral ears 414165981 H90.3 Bilateral tinnitus 73886 35192 102 H93.13 [id number] PATRIZIA FERREIRA [facility] [address] [address] 01/06/2025 09:20:17 01/06/2025 09:38:10 Sensorineural hearing loss of bilateral ears 975526122 H90.3 Audiologic al evaluation results: {{Normal sloping* [...] Gordon Member ID Guarantor Name 12/25/2024 1 [facility] (MEDICARE REPLACEMENT/ADV ANTAGE - HMO) Machelle Barroso [id number] Machelle Barroso 01/06/2025 1 [facility] (MEDICARE REPLACEMENT/ADV ANTAGE - HMO) Machelle Barroso [id number] Machelle Barroso Notes Date Note Type Note [...] she is anxious. IMMANUEL CARCAMO PA-C [facility],[address], [address], [facility] - [facility] 12/25/2024 12:24:29 01/06/2025 text/html Audiological Evaluation HPIReported bypatient.Hearing loss perceived:gradual onset PATRIZIA FERREIRA [address] [facility],[place] [address], [place], [address], [facility] - [facility] 01/06/2025 09:35:45 OBGyn Episode No OBEpisode recorded.
--- OUTSIDE RECORDS SUMMARY | 2025-03-30 17:04 | XMS_ITS | Encounter Summary ---
Author Organization [employer] Address 75 [facility] 7t [place] [address] Care Team Providers Care Fire Equipment Inspector Helper Name Role Phone Brooklyn Jalloh MD Primary Care Provider [phone] Reason for Visit * Reason Onset Date Comments Medication Question 11/19/2024 Encounter Details Date Type Department Care Team ([facility] st Contact Info) Description 11/19/2024 Telephone [facility] MEDICINE [address] [place], [place] [phone] Brooklyn Jalloh MD [address] [place], [place] [phone] Medication Question Social History Tobacco Use Types [...] Description 04/20/2025 10:00 AM EDT Office Visit [facility] CHC ADULT DENTAL [address] [place] [address] Gage Montano 04/26/2025 10:15 AM EDT Office Visit [facility] MEDICINE [address] [place] [address] Sarika Jenkins CNM [address] [place] [address] 05/07/2025 11:15 AM EDT Office Visit [facility] MEDICINE [address] [place] [address] Brooklyn Jalloh MD [address] [place] [address] documented as of this encounter Visit Diagnoses Not on filedocumented in this encounter Additional Health Concerns Assessment Noted Time PHQ-9 Depression Total Score: 5 03/16/20 24 11:45 AM EDT documented as of this encounter Care Teams Fire Equipment Inspector Helper Relationship Specialty Start Date End Date Brooklyn Jalloh MD [address] [place] [address] PCP - General Family Medicine 07/17/21 documented as of this encounter
--- OUTSIDE RECORDS SUMMARY | 2025-03-30 17:04 | XMS_ITS | Encounter Summary ---
Author Organization [email or web address] Address [address] [place] [address] 7t [place] [address] Care Team Providers Care Charging Crane Operator Name Role Phone Brooklyn Jalloh MD Primary Care Provider [phone] Reason for Visit * Reason Comments Med Refill Encounter Details Date Type Department Care Team (Late st Contact Info) Description 07/29/2023 Refill [facility] MED & PEDS [address] [place] [address] Brooklyn Jalloh MD [address] [place], [place] [phone] Social History Tobacco Use Types Packs/Day Years [...] Description 04/20/2025 10:00 AM EDT Office Visit [facility] ADULT DENTAL [address] [place] [address] Gage Montano 04/26/2025 10:15 AM EDT Office Visit [facility] MEDICINE [address] [place], [place] [phone] Sarika Jenkins CNM [address] [place], [place] [phone] 05/07/2025 11:15 AM EDT Office Visit [facility] MEDICINE [address] [place], [place] [phone] Brooklyn Jalloh MD [address] [place], [place] [phone] documented as of this encounter Visit Diagnoses Not on filedocumented in this encounter Additional Health Concerns Assessment Noted Time PHQ-9 Depression Total Score: 6 02/05/20 23 11:27 AM EDT documented as of this encounter Care Teams Charging Crane Operator Relationship Specialty Start Date End Date Brooklyn Jalloh MD [address] [place], [place] [phone] PCP - General Family Medicine 07/17/21 documented as of this encounter
--- OUTSIDE RECORDS SUMMARY | 2025-03-30 17:04 | XMS_ITS | Encounter Summary ---
Author Organization [employer] Address [address] [facility] 7t [place] [address] Care Team Providers Care Brewmaster Name Role Phone Brooklyn Jalloh MD Primary Care Provider [phone] Reason for Visit * Reason Onset Date Comments Referral 05/10/2023 Encounter Details Date Type Department Care Team ([facility] st Contact Info) Description 05/10/2023 Telephone [facility] MEDICINE [address] [place], [place] [phone] Brooklyn Jalloh MD [address] [place], [place] [phone] Referral Social History Tobacco Use Types Packs/Day [...] to her toenails. Please contact pt at [phone] Bulgarian Speaker documented in this encounter Plan of Treatment Upcoming Encounters Date Type Department Care Team (Late st Contact Info) Description 04/20/2025 10:00 AM EDT Office Visit [facility] ADULT DENTAL [address] [place] [address] Gage Montano 04/26/2025 10:15 AM EDT Office Visit [facility] MEDICINE [address] [place] [address] Sarika Jenkins CNM [address] [place] [address] 05/07/2025 11:15 AM EDT Office Visit [address] [address] Brooklyn Jalloh MD [address] [place] [phone] documented as of this encounter Visit Diagnoses Not on filedocumented in this encounter Additional Health Concerns Assessment Noted Time PHQ-9 Depression Total Score: 6 02/05/20 23 11:27 AM EDT documented as of this encounter Care Teams Brewmaster Relationship Specialty Start Date End Date Brooklyn Jalloh MD [address] [place] [phone] PCP - General Family Medicine 07/17/21 documented as of this encounter
--- OUTSIDE RECORDS SUMMARY | 2025-03-30 17:04 | XMS_ITS | Encounter Summary ---
Author Organization [employer] Address [address] [facility] 7t [place] [address] Care Team Providers Care Site Promotion Agent Name Role Phone Brooklyn Jalloh MD Primary Care Provider [phone] Reason for Visit * Reason Onset Date Comments Appointment Request 03/19/2025 Encounter Details Date Type Department Care Team ([facility] st Contact Info) Description 03/19/2025 Telephone [facility] MEDICINE [address] [place], [place] [phone] Brooklyn Jalloh MD [address] [place], [place] [phone] Appointment Request Social History Tobacco Use Types [...] Description 04/20/2025 10:00 AM EDT Office Visit [facility] ADULT DENTAL [address] [place] [address] Gage Montano 04/26/2025 10:15 AM EDT Office Visit [facility] MEDICINE [address] [place] [phone] Sarika Jenkins CNM [address] [place] [address] 05/07/2025 11:15 AM EDT Office Visit [address] [address] Brooklyn Jalloh MD [address] [place] [address] documented as of this encounter Visit Diagnoses Not on filedocumented in this encounter Additional Health Concerns Assessment Noted Time PHQ-9 Depression Total Score: 5 03/16/20 24 11:45 AM EDT documented as of this encounter Care Teams Site Promotion Agent Relationship Specialty Start Date End Date Brooklyn Jalloh MD [address] [place] [address] PCP - General Family Medicine 07/17/21 documented as of this encounter
--- OUTSIDE RECORDS SUMMARY | 2025-03-30 17:04 | XMS_ITS | Encounter Summary ---
Author Organization [employer] Address [address] [facility] [address]t [place] [address] Care Team Providers Care Gear Tooth Lapping Machine Operator Name Role Phone Brooklyn Jalloh MD Primary Care Provider [phone] Encounter Details Date Type Department Care Team ([facility] st Contact Info) Description 03/19/2025 Orders Only [facility] MEDICINE [address] [place], [place] [phone] Brooklyn Jalloh MD [address] [place], [place] [phone] Social History Tobacco Use Types Packs/Day Years [...] Description 04/20/2025 10:00 AM EDT Office Visit [facility] CH[facility] ADULT DENTAL [address] [place] [address] Gage Montano 04/26/2025 10:15 AM EDT Office Visit [facility] MEDICINE [address] [place] [phone] Sarika Jenkins CNM [address] [place] [phone] 05/07/2025 11:15 AM EDT Office Visit [facility] MEDICINE [address] [place] [address] Brooklyn Jalloh MD [address] [place] [phone] documented as of this encounter Visit Diagnoses Not on filedocumented in this encounter Additional Health Concerns Assessment Noted Time PHQ-9 Depression Total Score: 5 03/16/20 24 11:45 AM EDT documented as of this encounter Care Teams Gear Tooth Lapping Machine Operator Relationship Specialty Start Date End Date Brooklyn Jalloh MD [address] [place] [address] PCP - General Family Medicine 07/17/21 documented as of this encounter
--- OUTSIDE RECORDS SUMMARY | 2025-03-30 17:04 | XMS_ITS | Clinical Summary ---
Author Organization [employer] Address [address] [facility] 7[address] [place] [address] Care Team Providers Care Auto Parts Handler Name Role Phone Brooklyn Jalloh MD Primary Care Provider [phone] Allergies Active Allergy Reactions Criticality Noted Date [...] DAILY DIRECTED 80 g 3 024 Active ipratropium (Atrovent) 0.06 % nasal spray PLEASE SEE ATTACHED FOR DETAILED DIRECTIONS Active nortriptyline (Pamelor) 10 MG capsule Take [...] ONCE DAILY IN THE MORNING 16 g 3 025 Active simethicone (Mylicon) 80 MG chewable tabletIndications :Biliary colic CHEW AND SWALLOW 1 TABLET BY MOUTH EVERY 8 HOURS NEEDED FOR GAS 90 tablet 3 025 Active Pain Reliever Plus 250-250-65 MG tablet TAKE 1 TABLET BY MOUTH EVERY 6 HOURS NEEDED FOR HEADACHE 30 tablet 3 025 Active cholecalciferol (Vitamin D-3) 25 MCG tabletIndications :Vitamin D deficiency TAKE 1 TABLET BY MOUTH EVERY DAY 90 tablet Active metFORMIN XR (Glucophage-XR) 500 MG 24 [...] hours if needed for wheezing. 90 mL 025 Active gabapentin (Neurontin) 100 MG capsule TAKE [...] BY MOUTH EVERY MORNING 90 tablet 3 025 Active Diclofenac Sodium 1 % gel Apply to affected area up to 4x daily 50 g 025 Active estradiol (Estrace) 0.1 MG/GM vaginal creamIndications: Atrophic vaginitis 1g vaginally nightly x 14 days, then 1 g vaginally twice a week 42.5 g 2 025 Active loratadine (Claritin) 10 MG tabletIndications :Mild persistent asthma without complication TAKE 1 TABLET BY MOUTH EVERY DAY 90 tablet 3 024 2024 Discontinued Multiple Vitamin (Multivitamin) tabletIndications :Moderate persistent asthma with exacerbation TAKE 1 TABLET BY MOUTH EVERY MORNING 90 tablet 3 024 2024 Discontinued estradiol (Estrace) 0.1 MG/GM vaginal creamIndications: Atrophic vaginitis 1g vaginally twice a week 42.5 g 2 024 2024 Discontinued(R eorder (will not trigger notification to Pharmacy)) Diclofenac Sodium 1 % gel Apply to [...] (08/12/2024 11:39 AM EDT): Continue followup with [facility] ortho for viscosupplementation Assessment & Plan (02/13/2023 [...] diabetic range Aguirre tart Metformin 500mg XR marinaky Recheck in 3 months Lifestyle modifications and avoidance of simple sugars still advised Assessment & Plan (03/16/2024 1:14 PM EDT): Diet controlled Will start going to [facility] with her daughter as well Anxiety disorder [...] Encounters Date Type Department Care Team Description 03/30/2025 11:30 AM EDT Office Visit [address] [address] Sarika Jenkins CNM Cervical cancer screening (Primary Dx); Atrophic vaginitis 03/30/2025 Travel 03/26/[address] [address] Brooklyn Jalloh MD chartprep 03/20/2025 Orders Only GENERIC EXTERNAL DATA DEPARTMENT Provider, Generic External Data 03/19/2025 Orders Only [address] [address] Brooklyn Jalloh MD 03/19/[address] [address] Brooklyn Jalloh MD Lab Orders 03/19/2025 [address]phone [address] [place] [address] Brooklyn Jalloh MD Appointment Request 03/16/2025 Refill [facility] [address] [place] [phone] Brooklyn Jalloh MD 03/01/2025 Refill [facility] [address] [place] [phone] Brooklyn Jalloh MD Mild persistent asthma without complication; Moderate persistent asthma with exacerbation 02/21/2025 Refill [facility] [address] [place] [address] Brooklyn Jalloh MD 02/12/2025 Refill [facility] [address] [place] [phone] Brooklyn Jalloh MD 02/09/2025 9:40 AM EDT Office Visit [facility] [address] [address] Raffi Mendoza MD Cough in adult patient (Primary Dx); Acute upper back pain 02/02/2025 11:00 AM EDT Office Visit [facility] [address] [place] [address] Brooklyn Jalloh MD Prediabetes (Primary Dx); Dietary counseling; Exercise counseling; Class 1 obesity with serious comorbidity and body mass index (BMI) of 32.0 to 32.9 in adult, unspecified obesity type; Depression, recurrent (CMS/HCC); Primary hypertension; Obstructive sleep apnea syndrome; Calcific tendonitis of right shoulder; Cervical spondylosis; Stress incontinence of urine 02/02/2025 Travel 01/29/2025 Telephone [facility] [address] [place] [phone] Brooklyn Jalloh MD Med Refill 01/26/2025 Patient Outreach [facility] [address] [place] [phone] Brooklyn Jalloh MD Pre-visit Planning (SDOH screening negative and tobacco screening negative) 01/25/2025 Refill [facility] [address] [place] [address] Brooklyn Jalloh MD Vitamin D deficiency 01/08/2025 11:00 AM EST Office Visit [facility] [address] [place] [address] Trini Valdes MD Acute left-sided low back pain without sciatica (Primary Dx) 01/06/2025 Refill [facility] [address] [place] [address] Brooklyn Jalloh MD 12/31/2024 Refill [facility] [address] [place] [address] Brooklyn Jalloh MD Biliary colic from Last 3 Months Immunizations Name Administration [...] Mass Index 31.02 03/30/2025 11:41 AM EDT Plan of Treatment Upcoming Encounters Date Type Department Care Team (Late st Contact Info) Description 04/20/2025 10:00 AM EDT Office Visit [facility] [address] [place] [address] Gage Montano 04/26/2025 10:15 AM EDT Office Visit [facility] [address], [place] [phone] Sarika Jenkins, CNM [address], [place] [phone] 05/07/2025 11:15 AM EDT Office Visit [facility] [address], [place] [phone] Brooklyn Jalloh MD [address] [place], [place] [phone] Health Maintenance Due Date Last Done Comments [...] 02/02/2026 025, 08/11/2024, 02/04/2023, Additional history exists Alcohol/Substance Use Screening 02/04/2026 02/04/2025 Tobacco Screening 03/30/2026 03/30/2025 Dental X-Ray: Full Mouth 08/25/2027 08/24/2024, 06/2 12/2017 Lipid Panel 10/11/2027 10/11/2022, 01/25, 08/09/2020 DTaP/Tdap/Td [...] Name Priority Date/Time Associated Diagnosis Comments XR KUB AND UPRIGHT 2 VIEWS Routine 03/20/2025 10:38 AM EDT XR LUMBAR SPINE 2-3 VIEWS Routine 03/20/2025 10:37 AM EDT XR CHEST 2 VIEWS Routine 03/20/2025 10:3 6 AM EDT SARS COV2/INFLUENZA A/B AND RSV RNA QL NAAT Routine 03/20/2025 10:18 AM EDT URINALYSIS WITH REFLEX MICROSCOPIC Routine 03/20/2025 9:45 AM EDT AMB REFERRAL TO ORTHOPAEDIC SURGERY Routine 02/11/2025 [...] Recently Relevant to Health Maintenance Results * XR KUB and Upright 2 Views (03/20/2025 10:38 AM EDT) Anatomical Region Laterality Modality Radiographic Zina ging 03/20/2025 10:3 8 AM EDT Narrative 03/20/2025 10:39 AM EDT ? [facility] ?[address] ?[place] [address] ?XRay Report ? Signed ? Patient: Machelle Wooten ?MR#: ?? [id number] ? : 1970 ?Acct:[id number] ? Age/Sex: 55 / F ?ADM Date: 03/20/25 ? Loc: HO.ED ? Attending Dr: ? Ordering Physician: Jahaira Velasco NP ?? Date of Service: 03/20/25 ?? Procedure(s): XR KUB ?? Accession Number(s): [id number] ? cc: Brooklyn Jalloh; Jahaira Velasco NP ? CLINICAL HISTORY: constipation, lower abd pain ? 1 view abdomen ? Comparison: None ? Findings: ?? Nonspecific bowel gas pattern. Normal stool quantity. ?? No pneumoperitoneum or pneumatosis. ?? No urinary tract calculi are present. ?? Renal and psoas margins are normal. No organomegaly. ?? No acute fracture. Osteitis pubis. ?? Surgical clips right upper quadrant ? Impression: ?? 1. Nonspecific bowel gas pattern. ?? 2. No radiopaque calculi. ? This document has been electronically signed by: Naren Paul MD on ?? 03/20/2025 10:38:25 ? Dictated By: ?Naren Paul MD ? Signed By: ?<Electronically signed by Naren Paul MD in OV> ?03/20/25 1039 ? DD/ 1038 ? TD/TT: 03/20/25 1038 ? Certified Pesticide Applicator: ? Procedure Note Glenn Arcos - 03/20/2025 [place] [phone] [place] [address] XRay Report Signed Patient: Alice Wooten#: [id number] : 1970Acct:[id number] Age/Sex: 55 / FADM Date: 03/20/25 Loc: HO.ED Attending Dr: Ordering Physician: Jahaira Velasco NP Date of Service: 03/20/25 Procedure(s): XR KUB Accession Number(s): [id number] cc: Brooklyn Jalloh; Jahaira Velasco NP CLINICAL HISTORY: constipation, lower abd pain 1 view abdomen Comparison: None Findings: Nonspecific bowel gas pattern. Normal stool quantity. No pneumoperitoneum or pneumatosis. No urinary tract calculi are present. Renal and psoas margins are normal. No organomegaly. No acute fracture. Osteitis pubis. Surgical clips right upper quadrant Impression: 1. Nonspecific bowel gas pattern. 2. No radiopaque calculi. This document has been electronically signed by: Naren Paul MD on 03/20/2025 10:38:25 Dictated By: Naren Paul MD Signed By: <Electronically signed by Naren Paul MD in OV> 03/20/25 1039 DD/ 1038 TD/TT: 03/20/25 1038 Certified Pesticide Applicator: [facility] External Provider IMG XR PROCEDURES Edited Result - Final * XR Lumbar Spine 2-3 Views (03/20/2025 10:37 AM EDT) Anatomical Region Laterality Modality Spine, L-spine Radiographic Zina ging 03/20/2025 10:3 7 AM EDT Narrative 03/20/2025 10:39 AM EDT ? [facility] ?[address] ?[place] [address] ?XRay Report ? Signed ? Patient: Jose Barroso,Machelle ?MR#: ?? [id number] ? : 1970 ?Acct:[id number] ? Age/Sex: 55 / F ?ADM Date: 04/26/25 ? Loc: HO.ED ? Attending Dr: ? Ordering Physician: Jahaira Velasco TRACTOR DRIVER ?? Date of Service: 03/20/25 ?? Procedure(s): XR lumbar spine 2-3V ?? Accession Number(s): [id number] ? cc: Brooklyn Jalloh; Jahaira Velasco TRACTOR DRIVER ? CLINICAL HISTORY: midline tenderness ? 3 views lumbar spine ? Comparison: None ? Findings: ?? No fractures or spondylolisthesis. Small anterior vertebral body ?? osteophytes. ?? Normal facets ?? Disc spaces are maintained. ?? Pedicles and transverse processes intact. ?? Lordotic curvature is preserved. ?? Normal bone mineralization. Post cholecystectomy clips ?? Sacroiliac joints unremarkable. ? Impression: ?? 1. No compression fractures or spondylolisthesis. ? This document has been electronically signed by: Naren Paul MD on ?? 03/20/2025 10:37:57 ? Dictated By: ?Naren Paul MD ? Signed By: ?<Electronically signed by Naren Paul MD in OV> ?03/20/25 1039 ? DD/ 1037 ? TD/TT: 03/20/25 1037 ? Certified Pesticide Applicator: ? Procedure Note Josselyn, Glenn - 03/20/[address] [address] XRay Report Signed Patient: Machelle WootenMR#: [id number] : 1970Acct:[id number] Age/Sex: 55 / FADM Date: 03/20/25 Loc: HO.ED Attending Dr: Ordering Physician: Jahaira Velasco NP Date of Service: 03/20/25 Procedure(s): XR lumbar spine 2-3V Accession Number(s): [id number] cc: Brooklyn Jalloh; Jahaira Velasco NP CLINICAL HISTORY: midline tenderness 3 views lumbar spine Comparison: None Findings: No fractures or spondylolisthesis. Small anterior vertebral body osteophytes. Normal facets Disc spaces are maintained. Pedicles and transverse processes intact. Lordotic curvature is preserved. Normal bone mineralization. Post cholecystectomy clips Sacroiliac joints unremarkable. Impression: 1. No compression fractures or spondylolisthesis. This document has been electronically signed by: Naren Paul MD on 03/20/2025 10:37:57 Dictated By: Naren Paul MD Signed By: <Electronically signed by Naren Paul MD in OV> 03/20/25 1039 DD/ 1037 TD/TT: 03/20/25 1037 Certified Pesticide Applicator: [facility] External Provider IMG XR PROCEDURES Edited Result - Final * XR Chest 2 Views (03/20/2025 10:36 AM EDT) Anatomical Region Laterality Modality Chest Radiographic Zina ging 03/20/2025 10:3 6 AM EDT Narrative 03/20/2025 10:37 AM EDT ? [facility] ?[address] ?[place] [address] ?XRay Report ? Signed ? Patient: Machelle Wooten ?MR#: ?? [id number] ? : 1970 ?Acct:[id number] ? Age/Sex: 55 / F ?ADM Date: 03/20/25 ? Loc: HO.ED ? Attending Dr: ? Ordering Physician: Jahaira Velasco NP ?? Date of Service: 03/20/25 ?? Procedure(s): XR chest 2V ?? Accession Number(s): [id number] ? cc: Brooklyn Jalloh; Jahaira Velasco NP ? CLINICAL HISTORY: lung pain ? 2 view chest x-ray. ? Comparison: None ? Findings: ?? Normal lung volumes. ?? Lungs are clear. ?? No pneumothorax or pleural effusion. ?? Heart size normal. No passive venous congestion. ?? No midline shift or tracheal deviation. ?? No acute fracture. ? Impression: ?? 1. No acute cardiopulmonary disease. ? This document has been electronically signed by: Naren Paul MD on ?? 03/20/2025 10:36:06 ? Dictated By: ?Naren Paul MD ? Signed By: ?<Electronically signed by Naren Paul MD in OV> ?03/20/25 1037 ? DD/ 1036 ? TD/TT: 03/20/25 1036 ? Certified Pesticide Applicator: ? Procedure Note Glenn Arcos - 03/20/[address] [address] XRay Report Signed Patient: Machelle WootenMR#: [id number] : 1970Acct:[id number] Age/Sex: 55 / FADM Date: 03/20/25 Loc: HO.ED Attending Dr: Ordering Physician: Jahaira Velasco NP Date of Service: 03/20/25 Procedure(s): XR chest 2V Accession Number(s): [id number] cc: Brooklyn Jalloh; Jahaira Velasco NP CLINICAL HISTORY: lung pain 2 view chest x-ray. Comparison: None Findings: Normal lung volumes. Lungs are clear. No pneumothorax or pleural effusion. Heart size normal. No passive venous congestion. No midline shift or tracheal deviation. No acute fracture. Impression: 1. No acute cardiopulmonary disease. This document has been electronically signed by: Naren Paul MD on 03/20/2025 10:36:06 Dictated By: Naren Paul MD Signed By: <Electronically signed by Naren Paul MD in OV> 03/20/25 1037 DD/ 1036 TD/TT: 03/20/25 1036 Certified Pesticide Applicator: [facility] External Provider IMG XR PROCEDURES Edited Result - Final * SARS-CoV-2 RNA, Influenza A/B, and RSV RNA, Ql NAAT (03/20/2025 10:18 AM EDT) Influenza A PCR NEGATIVE Negative [facility] Influenza B PCR NEGATIVE Negative [facility] Resp Syncy Virus RNA Qual PCR NEGATIVE Negative [facility] SARS COV2 PCR NEGATIVE Negative [facility] Comment:All test results mus t be correlated with clinical findings.Negative results do not preclude SARS-CoV2, influenza Avirus, influenza B virus and/or RSV infectionand should not be used as the sole basis for treatment orother patient management decisions. Negative results must becombined with clinical observations, patient history, andepidemiological information.This test has not been evaluated for monitoring treatment ofinfection.This test has been authorized by the FDA under an EmergencyUse Authorization (EUA) for use by authorized laboratories.Testing performed on the [employer] GeneXpert utilizingreal-time RT-PCR.All SARS CoV2 and positive influenza A/B results arereported to [facility]. 03/20/2025 10:1 8 AM EDT 03/20/2025 10:23 AM EDT Generic External Data Provider LAB MICROBIOLOGY - GENERAL ORDERABLES Final Result Performing Organization Address City/[facility]/ZIP Co de Phone Number [facility] [address] [place] [phone] * Urinalysis w/reflex microscopic (03/20/2025 9:45 AM EDT) Color Urine Yellow [facility] Appearance Urine Clear [facility] PH 6.5 5.0 - 9.0 [facility] Glucose Urine UA Negative Negative mg/dL [facility] Urine Blood Negative Negative [facility] Specific [place] - Urine <=1.005 1.005 - 1.025 [facility] Urine Protein Negative Neg-Trace mg/dL [facility] Urine Ketones Negative Negative mg/dL [facility] Nitrite Urine Negative Negative [facility] Leukocyte Esterase Urine Negative Negative [facility] 03/20/2025 9:45 AM EDT 03/20/2025 9:58 AM EDT Narrative [facility] - 03/20/2025 10:07 AM EDT [id number], Clean Catch us Generic External Data Provider LAB URINE ORDERAB LES Final Result Performing Organization Address [facility] Co de Phone Number [facility] [address] [place] [phone] * Referral to Orthopaedic Surgery (02/11/2025) us Jeremie Walker MD OUTPATIENT REFERRAL O RDERABLES Final Result * Influenza B (ID NOW Rapid Molecular) (02/09/2025 10:04 AM EDT) [facility] Influenza B Negative Negative, Indeterminate [facility] Swab 02/09/2025 10:0 4 AM EDT Raffi Mendoza MD POINT OF CARE TEST ENTER/EDIT OR DERABLES Final Result Performing Organization Address [facility]/ZIP Co de Phone Number [facility] [address] [place] [phone] * Influenza A (ID NOW Rapid Molecular) (02/09/2025 10:03 AM EDT) [facility] Influenza A Negative Negative, Indeterminate [facility] Swab 02/09/2025 10:0 3 AM EDT Raffi Mendoza MD POINT OF CARE TEST ENTER/EDIT OR DERABLES Final Result Performing Organization Address City/[facility] Co de Phone Number [facility] [address] [place] [phone] * POCT Rapid COVID Ag (02/09/2025 9:55 AM EDT) [facility] Rapid COVID Ag Negative Swab 02/09/2025 9:55 AM EDT Raffi Mendoza MD POINT OF CARE TEST ENTER/EDIT OR DERABLES Final Result * (ABNORMAL) POCT HGB A1C (02/02/2025 11:04 AM EDT) [facility] Hemoglobin A1C 6.1(A) 4.0 - 6.0 % QC Media Lot # [id number] Lot# Expiration Date Blood 02/02/2025 11:0 4 AM EDT Brooklyn Jalloh MD POINT OF CARE TEST ENTER/EDIT ORDERABLES Final Result * POCT Glucose (02/02/2025 11:04 AM EDT) Glucose Blood, POC 84 60 - 200 mg/dL QC Media Lot # [id number] Lot# Expiration Date [id number] Blood Capillary blood specimen / Unknown 02/02/2025 11:04 AM EDT Brooklyn Jalloh MD POINT OF CARE TEST ENTER/EDIT ORDERABLES Final Result * POCT urinalysis dipstick manually resulted (01/08/2025 10:52 AM EST) Pathologist [facility] Color, UA Yellow Clarity, UA Clear Glucose, UA Negative Bilirubin, UA Negative Ketones, UA Negative Spec Grav, UA 1.020 Blood, UA Negative Negative, None Detected pH, UA 7.0 Protein, UA Negative Urobilinogen, UA 1.0 Leukocytes, UA Negative Negative, Rare, Trace Nitrite, UA Negative Negative, None Detected Urine 01/08/2025 10:5 2 AM EST Result [facility] Trini Valdes MD POINT OF CARE TEST ENTER/EDIT OR DERABLES Final Result * Hepatitis C Antibody with Reflex to HCV, RNA, Quantitative, Real-Time PCR (08/18/2024 11:14 AM EDT) Pathologist [facility] Hepatitis C Antibody Nonreactive Nonreactive [facility] Comment:Antibodies to HCV no t detected; does not exclude early acuteHCV infection. Blood Venous blood specimen / Unknown 08/18/2024 11:14 AM EDT 08/18/2024 1:13 PM EDT Result [facility] Brooklyn Jalloh MD LAB BLOOD ORDERABLES Final Res ult [facility] [address] [place] [phone] * HIV-1/2 Antigen and Antibodies, Fourth Generation, with Reflexes (08/18/2024 11:14 AM EDT) [facility] HIV AB/AG Nonreactive Nonreactive [facility] Comment:HIV-1 p24 Ag and/or HIV-1/HIV-2 Ab not detected.A test result that is nonreactive does not exclude thepossibility of exposure to or infection with HIV-1 and/orHIV-2. Nonreactive results in this assay for individualswith prior exposure to HIV-1 and/or HIV-2 may be due toantigen and antibody levels that are below the limit ofdetection of this assay.The [employer] HIV Ag/Ab Combo assay result andsupplemental assay results should be interpreted inconjunction with the patient's clinical presentation,history and other laboratory results. If the results areinconsistent with clinical evidence, additional testing issuggested to confirm the result. Blood Venous blood specimen / Unknown 08/18/2024 11:14 AM EDT 08/18/2024 1:13 PM EDT Brooklyn Jalloh MD LAB BLOOD ORDERABLES Final Res ult [facility] [address] [place] [address] [phone] * BI US Breast Limited Right (08/18/2024) Anatomical Region Laterality Modality Breast Right Ultrasound Lilian Holcomb WINDOWS SOFTWARE ENGINEER IMG US PROCEDURES Final Result * (ABNORMAL) Colonoscopy (05/13/2023) [facility] Colonoscopy Abnormal( A) Normal Comment:see scanned report 05/13/2023 Brooklyn Jalloh MD HEALTH MAINTENANCE Final Resul t * (ABNORMAL) LIPID PANEL, STANDARD (10/11/2022 8:02 AM EST) [facility] Chol/HDLC Ratio 3.7 <5.0 (calc) CONVERTED LEGACY [...] ?? LDL-C is now calculated using the Linda ?? calculation, which is a validated novel method providing ?? better accuracy than the Friedewald equation in the ?? estimation of LDL-C. ?? Mitch SHORE et al. ARACELI. 2013;310(19): 5958-0894 ?? (http://[facility].[employer]/faq/JPT153) Non-HDL Cholesterol 117 <130 mg/dL (calc) CONVERTED [...] HPV mRNA E6/E7 Not Detected NOT DETECTED [facility] Comment: This test was performed using the APTIMA(R) HPV Assay ([employer] This assay detects E6/E7 viral messenger RNA (mRNA) from 14 high-risk HPV types (16,18,31,33,35,39,45,51, 52,56,58,59,66,68). For additional information please refer to: http://[facility].[employer]/faq/BFL773q6 (This link is being provided for informational/ educational purposes only.) The analytical performance characteristics of this assay have been determined by [employer] [place], [place]. The modifications have not been cleared or approved by the FDA. This assay has been validated pursuant to the CLIA regulations and is used for clinical purposes. Test Performed by [employer], [employer] [place], [address] [place] [address] Toni Lopez M.D., Ph.D., Director of Laboratories , CLIA [id number] Please note: ??Effective 08/06/2016, HPV testing will be performed using [employer]'s APTIMA test which targets mRNA. Detecting mRNA instead of DNA, as in older methods, offers significant improvements in specificity. 04/23/2018 10:0 6 AM EDT us Sarika Jenkins CNM HISTORICAL/NON ORDERABLE LABS Final Result [facility] Anywhere [address] from Last 3 Months or Most Recently Relevant to Health Maintenance Insurance [address] [place] [address] [facility] < [address] [id number] [address] [place] [address] [facility] [address] [place] [address] [address] [place] [address] Care Teams Auto Parts Handler Relationship Specialty Start Date End Date Brooklyn Jalloh MD [address] [place] [id number] PCP - General Family Medicine 07/17/21
--- OUTSIDE RECORDS SUMMARY | 2025-03-30 17:04 | XMS_ITS | Clinical Summary ---
Author Organization 175 [facility] Address 175 [place] [address] Phone Care Team Providers Care Cath Lab Tech Name Role Phone Brooklyn Jalloh MD Primary Care Provider [phone] Allergies Active Allergy Reactions Criticality Noted Date [...] AM EDT Office Visit [facility] [place] 250 175 [facility] [address] [place] [phone] Scot Durant DPM Pain in toes [...] Upcoming Encounters Date Type Department Care Team ([facility] st Contact Info) Description 04/15/2025 11:00 AM EDT Office Visit Orthopedic Surgery - [place] 250 175 [facility] [address] [place] [phone] Scot Durant, DPGirish [address] [facility] [address] [place] [address] Health Maintenance Due Date Last Done Comments [...] * Annual BMP Blood Test (08/31/2024) Pathologist [facility] Annual BMP Blood Test abstracted Result [facility] HEALTH MAINTENANCE Final Result * HIV Screening (08/18/2024) [facility] HIV Screening abstracted Result [facility] HEALTH MAINTENANCE Final Result * Hepatitis C Screening (08/18/2024) [facility] Hepatitis C Screening abstracted Result [facility] Provider HEALTH MAINTENANCE Final Result * Lipid panel (02/21/2021) [facility] LDL/HDL Ratio 0 Comment:abstracted, no inter pretation Triglycerides 0 mg/dL Comment:abstracted, no inter pretation Cholesterol 0 mg/dL Comment:abstracted, no inter pretation HDL 0 mg/dL Comment:abstracted, no inter pretation LDL Cholesterol 0 mg/dL Comment:abstracted, no inter pretation Blood Venous blood specimen / Unknown Result [facility] Provider LAB BLOOD ORDERABLES Julianne l Result from Last 3 Months or Most Recently Relevant to Health Maintenance Insurance [employer] MEDICARE Member Subscriber Plan / Payer (Ef fective 2018-Present) Name:Machelle Wooten Relation to Subscriber:Self Name:Machelle Wooten Payer ID:[id number] Group ID:[id number] Type:Not on file Address: [place] [address] [address] [address] Care Teams Cath Lab Tech Relationship Specialty Start Date End Date Brooklyn Jalloh MD [address] [place] [address] PCP - General 09/12/22
--- OUTSIDE RECORDS SUMMARY | 2025-03-30 17:04 | XMS_ITS | Encounter Summary ---
Author Organization [employer] Address 75 [facility] 7t [place] [address] Care Team Providers Care Brake Lining Maker Name Role Phone Brooklyn Jalloh MD Primary Care Provider Encounter Details Date Type Department Care Team (Late st Contact Info) Description 05/11/2023 Orders Only [facility] MEDICINE 230 [place], [place] [phone] Brooklyn Jalloh MD 230 [place] [address] Onychomycosis (Primary Dx) Social History Tobacco Use [...] Description 04/20/2025 10:00 AM EDT Office Visit [facility] CHC ADULT DENTAL [address] [place] [address] Gage Montano 04/26/2025 10:15 AM EDT Office Visit [facility] [address] [place] [address] [phone] Sarika Jenkins CNM 230 [place] [address] 05/07/2025 11:15 AM EDT Office Visit [address] [address] Brooklyn Jalloh MD [address] [place] [address] documented as of this encounter Visit Diagnoses Diagnosis Onychomycosis- Primary Dermatophytosis of nail documented in this encounter Additional Health Concerns Assessment Noted Time PHQ-9 Depression Total Score: 6 02/05/20 23 11:27 AM EDT documented as of this encounter Care Teams Brake Lining Maker Relationship Specialty Start Date End Date Brooklyn Jalloh MD [address] [place] [address] PCP - General Family Medicine 07/17/21 documented as of this encounter
--- OUTSIDE RECORDS SUMMARY | 2025-03-30 17:04 | XMS_ITS | Encounter Summary ---
Author Organization [employer] Address 75 [facility] [address] 7t [place] [address] Care Team Providers Care Neurosurgeon Name Role Phone Brooklyn Jalloh MD Primary Care Provider [phone] Encounter Details Date Type Department Care Team (Late st Contact Info) Description 12/22/2023 Orders Only [facility] 230 [place], [place] [phone] Brooklyn Jalloh MD 230 [place], [place] [phone] Bronchitis (Primary Dx) Social History Tobacco Use [...] Description 04/20/2025 10:00 AM EDT Office Visit [facility] CHC ADULT DENTAL [address] [place] [address] Gage Montano 04/26/2025 10:15 AM EDT Office Visit [facility] [address] [place] [address] Sarika Jenkins CN [address] [place] [address] 05/07/2025 11:15 AM EDT Office Visit [address] [address] Brooklyn Jalloh MD [address] [place] [address] documented as of this encounter Procedures Procedure Name Priority Date/Time Associated Diagnosis Comments CBC WITH AUTO DIFFERENTIAL Routine 12/25/2023 12:28 PM EST Bronchitis documented in this encounter Results * (ABNORMAL) CBC auto differential (12/25/2023 12:28 PM EST) White Blood Count 15.4(H) 4.8 - 10.8 X10*3/uL [facility] Red Blood Count 5.11 4.20 - 5.50 X10*6/uL [facility] Hemoglobin 13.7 12.0 - 16.0 g/dl [facility] Hematocrit 42.6 37.0 - 47.0 % [facility] Mean Corpuscular Volume 83.4 80.0 - 98.0 fL [facility] Mean Corpuscular Hemoglobin 26.8(L) 27.0 - 33.0 pg [facility] Mean Corpuscular HGB Conc 32.2 31.0 - 35.0 g/dl [facility] Red Cell Distribution Width 13.9 11.0 - 16.0 % [facility] Platelet Count 442(H) 160 - 400 X10*3/uL [facility] Mean Platelet Volume 10.1 9.4 - 12.3 fL [facility] Neutrophils Percent Auto 71.8 45 - 73 % [facility] Imm Gran Pct Auto 0.5(H) 0.0 - 0.4 % [facility] Lymphocytes Percent Auto 20.8 20 - 40 % [facility] Monocytes Percent Auto 6.7 2 - 11 % [facility] Eosinophils Percent Auto 0.1 0 - 4 % [facility] Basophils Percent Auto 0.1 0 - 2 % [facility] NRBC Pct Auto 0.0 0.0 - 0.2 /100WBC [facility] Neutrophils Absolute Auto 11.0(H) 2.0 - 8.3 x10*3/uL [facility] Imm Gran Abs Auto 0.08(H) 0.00 - 0.03 X10*3/uL [facility] Lymphocytes Absolute Auto 3.2 1.2 - 4.9 X10*3/uL [facility] Monocytes Absolute Auto 1.0 0.1 - 1.2 X10*3/uL [facility] Eosinophils Absolute Auto 0.0 0.0 - 0.4 X10*3/uL [facility] Basophils Absolute Auto 0.0 0.0 - 0.2 X10*3/uL [facility] NRBC Abs Auto 0.000 0.0 - 0.012 X10*3/uL [facility] Blood Venous blood specimen / Unknown 12/25/2023 12:28 PM EST 12/25/2023 1:09 PM EST us Brooklyn Jalloh MD LAB BLOOD ORDERABLES Final Res ult [facility] [address] [place] [phone] [phone] documented in this encounter Visit Diagnoses Diagnosis Bronchitis- Primary Bronchitis, not specified as acute or chronic documented in this encounter Additional Health Concerns Assessment Noted Time PHQ-9 Depression Total Score: 6 02/05/20 23 11:27 AM EDT documented as of this encounter Care Teams Neurosurgeon Relationship Specialty Start Date End Date Brooklyn Jalloh MD [address] [place] [address] PCP - General Family Medicine 07/17/21 documented as of this encounter
--- OUTSIDE RECORDS SUMMARY | 2025-03-30 17:05 | XMS_ITS | Encounter Summary ---
Author Organization [employer] Address 75 [facility] 7t [place] [address] Care Team Providers Care Component Engineer Name Role Phone Brooklyn Jalloh MD Primary Care Provider [phone] Reason for Referral * Consultation (Routine) - Closed Specialty Diagnoses / Procedures Referred By Contac t Referred To Contact Orthopaedic Surgery Diagnoses Primary osteoarthritis of both knees Brooklyn Jalloh MD [address] [place] [address] Phone: tel: fax: [facility] Orthopedics [address] [place] [address] Phone: tel: Referral ID Status Reason Start Date Expiration Date V isits Requested Visits Authorized [id number] Closed Specialty Services Required 02/18/2024 02/17/2025 1 1 Encounter Details Date Type Department Care Team (Late st Contact Info) Description 02/18/2024 Orders Only [facility] MEDICINE 230 [place] [address] Brooklyn Jalloh MD 230 [place], [place] [phone] Primary osteoarthritis of both knees (Primary Dx) [...] Description 04/20/2025 10:00 AM EDT Office Visit [facility] CHC ADULT DENTAL [address] [place] [address] Gage Montano 04/26/2025 10:15 AM EDT Office Visit [facility] MEDICINE [address] [place] [address] Sarika Jenkins CNM [address] [place] [address] 05/07/2025 11:15 AM EDT Office Visit [address] [address] Brooklyn Jalloh MD [address] [place] [address] Scheduled Referrals Name Type Priority Associated Diagnoses [...] EDT Narrative 03/09/2024 2:27 PM EDT ? [facility] ?[address] ?[place] [address] ?XRay Report ? Signed ? Patient: Machelle Wooten ?MR#: ?? [id number] ? : 1970 ?Acct:[id number] ? Age/Sex: 54 / F ?ADM Date: 03/09/24 ? Loc: HO.ED ? Attending Dr: ? Ordering Physician: Zack Lainez ?? Date of Service: 03/09/24 ?? Procedure(s): XR chest 2V ?? Accession Number(s): [id number] ? cc: Brooklyn Jalloh; Zack Lainez ? [...] Signed By: ?<Electronically signed by Boyd Miller Jr, DO in OV> ?03/09/244 ? DD/ ? TD/TT: ? Television Repairman: CB ? Procedure Note Glenn Arcos - 03/09/[address] [address] XRay Report Signed Patient: Machelle WootenMR#: [id number] : 1970Acct:[id number] Age/Sex: 54 / FADM Date: 03/09/24 Loc: HO.ED Attending Dr: Ordering Physician: Zack Lainez Date of Service: 03/09/24 Procedure(s): XR chest 2V Accession Number(s): [id number] cc: Brooklyn Jalloh; Zack Lainez EXAMINATION: XR [...] DO inOV> 03/09/24 1424 DD/ 1408 TD/TT: Television Repairman: [facility] External Provider IMG XR PROCEDURES Edited Result - Final documented in this encounter Visit Diagnoses Diagnosis Primary osteoarthritis of both knees- Primary documented in this encounter Additional Health Concerns Assessment Noted Time PHQ-9 Depression Total Score: 6 02/05/20 23 11:27 AM EDT documented as of this encounter Care Teams Component Engineer Relationship Specialty Start Date End Date Brooklyn Jalloh MD [address] [place] [address] PCP - General Family Medicine 07/17/21 documented as of this encounter
--- OUTSIDE RECORDS SUMMARY | 2025-03-30 17:05 | XMS_ITS | Encounter Summary ---
Author Organization [employer] Address 75 [facility] 7t [place] [address] Care Team Providers Care Personal Lines Insurance Agent Name Role Phone Brooklyn Jalloh MD Primary Care Provider [phone] Encounter Details Date Type Department Care Team (Late Contact Info) Description 11/12/2022 Orders Only [facility] MEDICINE [address] [place] [address] Brooklyn Jalloh MD [address] [place] [address] [phone] Social History Tobacco Use Types Packs/Day Years [...] Department Care Team (Late Contact Info) Description 04/20/2025 10:00 AM EDT Office Visit [facility] CHC ADULT DENTAL [address] [place] [address] Gage Montano 04/26/2025 10:15 AM EDT Office Visit [facility] MEDICINE [address] [place] [address] Sarika Jenkins CNM 230 [place], [place] [phone] 05/07/2025 11:15 AM EDT Office Visit [facility] MEDICINE 230 [place], [place] [phone] Brooklyn Jalloh MD 230 [place], [place] [phone] documented as of this encounter Visit Diagnoses Not on filedocumented in this encounter Care Teams Personal Lines Insurance Agent Relationship Specialty Start Date End Date Brooklyn Jalloh MD [address] [place], [place] [phone] PCP - General Family Medicine 07/17/21 documented as of this encounter
--- OUTSIDE RECORDS SUMMARY | 2025-03-30 17:05 | XMS_ITS | Encounter Summary ---
Author Organization [employer] Address 75 [facility] 7t [place] [address] Care Team Providers Care Manager Express Name Role Phone Brooklyn Jalloh MD Primary Care Provider [phone] Encounter Details Date Type Department Care Team (Latest Contact Info) Description 04/06/2021 Abstract [facility] CONVERSIONS Dental, Provider, DDS Social [...] Description 04/20/2025 10:00 AM EDT Office Visit [facility] CHC ADULT DENTAL [address] [place] [address] Gage Montano 04/26/2025 10:15 AM EDT Office Visit [facility] MEDICINE [address] [place] [address] Sarika Jenkins CNM [address] [place] [address] 05/07/2025 11:15 AM EDT Office Visit [facility] MEDICINE [address] [place] [address] Brooklyn Jalloh MD [address] [place] [address] documented as of this encounter Visit Diagnoses Not on filedocumented in this encounter Care Teams Manager Express Relationship Specialty Start Date End Date Brooklyn Jalloh MD 230 [place] [address] PCP - General Family Medicine 07/17/21 documented as of this encounter
--- OUTSIDE RECORDS SUMMARY | 2025-03-30 17:05 | XMS_ITS | Encounter Summary ---
Author Organization [employer] Address [address] [place] [address] 7t [place] [address] Care Team Providers Care Squad Sergeant Name Role Phone Brooklyn Jalloh MD Primary Care Provider [phone] Encounter Details Date Type Department Care Team (Latest Contact Info) Description 05/12/2019 Abstract [facility] CONVERSIONS Dental, Provider, DDS Social History Tobacco [...] 10:00 AM EDT Office Visit [facility] CHC ADULT DENTAL [address] [place] [address] Gage Montano 04/26/2025 10:15 AM EDT Office Visit [facility] MEDICINE [address] [place] [address] Sarika Jenkins CNM [address] [place] [address] 05/07/2025 11:15 AM EDT Office Visit [facility] MEDICINE [address] [place] [address] Brooklyn Jalloh MD [address] [place] [address] documented as of this encounter Visit Diagnoses Not on filedocumented in this encounter Care Teams Squad Sergeant Relationship Specialty Start Date End Date Brooklyn Jalloh MD [address] [place] [address] PCP - General Family Medicine 07/17/21 documented as of this encounter
--- OUTSIDE RECORDS SUMMARY | 2025-03-30 17:05 | XMS_ITS | Encounter Summary ---
Author Organization [employer] Address [address] [facility] [address] 7t [place] [address] Care Team Providers Care Registered Route Associate Name Role Phone Brooklyn Jalloh MD Primary Care Provider [phone] Encounter Details Date Type Department Care Team ([facility] st Contact Info) Description 03/10/2024 Orders Only [facility] MEDICINE [address] [place], [place] [phone] Brooklyn Jalloh MD 230 [place], [place] [phone] Social History Tobacco Use Types Packs/Day Years [...] the past 12 months, has t he [employer], gas, oil or water company threatened to [...] [facility]ULT D[facility] [address] [place] [address] Gage Montano 04/26/2025 10:15 AM EDT Office Visit [facility] MEDICINE [address] [place] [address] Sarika Jenkins CNM [address] [place] [address] 05/07/2025 11:15 AM EDT Office Visit [address] [address] Brooklyn Jalloh MD [address] [place] [address] documented as of this encounter Visit Diagnoses Not on filedocumented in this encounter Additional Health Concerns Assessment Noted Time PHQ-9 Depression Total Score: 6 02/05/20 23 11:27 AM EDT documented as of this encounter Care Teams Registered Route Associate Relationship Specialty Start Date End Date Brooklyn Jalloh MD [address] [place] [address] [phone] PCP - General Family Medicine 07/17/21 documented as of this encounter
--- OUTSIDE RECORDS SUMMARY | 2025-03-30 17:05 | XMS_ITS | Encounter Summary ---
Author Organization [employer] Address 75 [facility] 7t [place] [address] Care Team Providers Care Underwriting Clerks Supervisor Name Role Phone Brooklyn Jalloh MD Primary Care Provider [phone] Encounter Details Date Type Department Care Team (Latest Contact Info) Description 06/27/2022 Abstract [facility] CONVERSIONS Dental, Provider, DDS Social History [...] Description 04/20/2025 10:00 AM EDT Office Visit [facility] CHC ADULT DENTAL [address] [place] [address] Gage Montano 04/26/2025 10:15 AM EDT Office Visit [facility] MEDICINE [address] [place] [address] Sarika Jenkins CNM [address] [place] [address] 05/07/2025 11:15 AM EDT Office Visit [facility] MEDICINE [address] [place] [address] Brooklyn Jalloh MD [address] [place] [address] documented as of this encounter Visit Diagnoses Not on filedocumented in this encounter Care Teams Underwriting Clerks Supervisor Relationship Specialty Start Date End Date Brooklyn Jalloh MD 230 [place] [address] PCP - General Family Medicine 07/17/21 documented as of this encounter
[2025-04-06 14:19] LABS: HPV Genotype 16 Negative (Negative); HPV Genotype 18 Negative (Negative); HPV High Risk Negative (Negative)
== END 2025-03-30 16:17 | disposition home or self-care (01) ==
LOC: HO.HHCLNP 16:16
PROVIDERS: Visit Provider Advanced Practice Midwife
DX: Z12.4 Encounter for screening for malignant neoplasm of cervix (principal)
CPT/HCPCS: 87626; 88175

== ENCOUNTER 2025-04-02 11:47 | Outpatient (REF) | payer OTHER, SELFPAY ==
--- OUTSIDE RECORDS SUMMARY | 2025-04-02 12:16 | XMS_ITS | Encounter Summary ---
Author Organization [employer] Address [address] [facility] [address] 7t [place] [address] Care Team Providers Care Chemical Processing Equipment Repairer Name Role Phone Brooklyn Jalloh MD Primary Care Provider Encounter Details Date Type Department Care Team ([facility] st Contact Info) Description 08/25/2024 Orders Only [facility] MEDICINE [address] [place] [address] ProviderDipak MD Social History Tobacco Use Types [...] [facility] CHC ADULT DENTAL [address] [place] [address] Gage Montano 04/26/2025 10:15 AM EDT Office Visit [facility] [address] [place] [address] Sarika Jnekins CNM [address] [place] [address] 05/07/2025 11:15 AM EDT Office Visit [facility] [address] [place] [address] Brooklyn Jalloh MD [address] [place] [address] documented as of this encounter Procedures Procedure [...] documented as of this encounter Care Teams Chemical Processing Equipment Repairer Relationship Specialty Start Date End Date Brooklyn Jalloh MD [address] [place] [address] PCP - General Family Medicine 07/17/21 documented as of this encounter
--- OUTSIDE RECORDS SUMMARY | 2025-04-02 12:16 | XMS_ITS | Encounter Summary ---
Author Organization [employer] Address 75 [facility] 7t [place] [address] Care Team Providers Care Propeller Engineer Name Role Phone Brooklyn Jalloh MD Primary Care Provider [phone] Reason for Visit * Reason Onset Date Comments Appointment Request 03/19/2025 Encounter Details Date Type Department Care Team ([facility] st Contact Info) Description 03/19/2025 Telephone [facility] MEDICINE 230 [place], [place] [phone] Brooklyn Jalloh MD 230 [place], [place] [phone] Appointment Request Social History Tobacco Use Types [...] [facility] CHC ADULT DENTAL [address] [place] [address] Gage Montano 04/26/2025 10:15 AM EDT Office Visit [facility] MEDICINE [address] [place] [address] Sarika Jenkins CNM 230 [place] [address] 05/07/2025 11:15 AM EDT Office Visit [address] [address] Brooklyn Jalloh MD [address] [place] [address] documented as of this encounter Visit Diagnoses Not on filedocumented in this encounter Additional Health Concerns Assessment Noted Time PHQ-9 Depression Total Score: 5 03/16/20 24 11:45 AM EDT documented as of this encounter Care Teams Propeller Engineer Relationship Specialty Start Date End Date Brooklyn Jalloh MD [address] [place] [address] PCP - General Family Medicine 07/17/21 documented as of this encounter
--- OUTSIDE RECORDS SUMMARY | 2025-04-02 12:16 | XMS_ITS | Encounter Summary ---
Author Organization [employer] Address 75 [facility] 7t [place] [address] Care Team Providers Care Microfilm Operator Name Role Phone Brooklyn Jalloh MD Primary Care Provider [phone] Reason for Visit * Reason Onset Date Comments Durable Medical Equipment 02/07/2023 Encounter Details Date Type Department Care Team ([facility] st Contact Info) Description 02/07/2023 Telephone [facility] MEDICINE [address] [place], [place] [phone] Brooklyn Jalloh MD 230 [place], [place] [phone] Durable Medical Equipment Social History Tobacco Use [...] status on walker please contact pt at [phone]. documented in this encounter Plan of Treatment Upcoming Encounters Date Type Department Care Team (Late st Contact Info) Description 04/20/2025 10:00 AM EDT Office Visit [facility] CHC ADULT DENTAL [address] [place] [address] Gage Montano 04/26/2025 10:15 AM EDT Office Visit [facility] MEDICINE [address] [place] [address] Sarika Jenkins CNM [address] [place] [address] 05/07/2025 11:15 AM EDT Office Visit [facility] [address] [place] [address] Brooklyn Jalloh MD [address] [place] [address] documented as of this encounter Visit Diagnoses Not on filedocumented in this encounter Additional Health Concerns Assessment Noted Time PHQ-9 Depression Total Score: 6 02/05/20 23 11:27 AM EDT documented as of this encounter Care Teams Microfilm Operator Relationship Specialty Start Date End Date Brooklyn Jalloh MD [address] [place] [address] PCP - General Family Medicine 07/17/21 documented as of this encounter
--- OUTSIDE RECORDS SUMMARY | 2025-04-02 12:16 | XMS_ITS | Encounter Summary ---
Author Organization [employer] Address [address] 7t [place] [address] Care Team Providers Care Labor Relations Teacher Name Role Phone Brooklyn Jalloh MD Primary Care Provider [phone] Reason for Visit * Reason Onset Date Comments Referral 08/05/2024 Encounter Details Date Type Department Care Team ([facility] st Contact Info) Description 08/05/2024 Telephone [facility] MEDICINE [address] [place], [place] [phone] Brooklyn Jalloh MD 230 [place], [place] [phone] Referral Social History Tobacco Use Types Packs/Day [...] of the breast to be sent to [facility] Address: [address] [place] [address] Fax- [phone] documented in this encounter Plan of Treatment Upcoming Encounters Date Type Department Care Team (Late st Contact Info) Description 04/20/2025 10:00 AM EDT Office Visit [facility] CHC ADULT DENTAL [address] [place] [address] Gage Montano 04/26/2025 10:15 AM EDT Office Visit [facility] MEDICINE [address] [place] [address] Sarika Jenkins CNM [address] [place] [address] 05/07/2025 11:15 AM EDT Office Visit [facility] MEDICINE [address] [place] [address] Brooklyn Jalloh MD [address] [place] [address] documented as of this encounter Visit Diagnoses Not on filedocumented in this encounter Additional Health Concerns Assessment Noted Time PHQ-9 Depression Total Score: 5 03/16/20 24 11:45 AM EDT documented as of this encounter Care Teams Labor Relations Teacher Relationship Specialty Start Date End Date Brooklyn Jalloh MD 230 [place] [address] PCP - General Family Medicine 07/17/21 documented as of this encounter
--- OUTSIDE RECORDS SUMMARY | 2025-04-02 12:16 | XMS_ITS | Encounter Summary ---
Author Organization [employer] Address [address] [facility] 7t [place] [address] Care Team Providers Care Department Supervisor Name Role Phone Brooklyn Jalloh MD Primary Care Provider [phone] Reason for Visit * Reason Onset Date Comments Med Refill 02/04/2023 Encounter Details Date Type Department Care Team ([facility] st Contact Info) Description 02/04/2023 Telephone [facility] MEDICINE 230 [place], [place] [phone] Brooklyn Jalloh MD 230 [place], [place] [phone] Med Refill Social History Tobacco Use Types [...] 3:33 PM EDT Medications were sent to [facility] today 02/04/23. * Telephone Encounter - Ankur Rich - 02/04/2023 3:01 PM EDT Tc from pt requesting med refill Prednisone 20 mg Ibuprofen 800 mg Doxycycline 100 mg documented in this encounter Plan of Treatment Upcoming Encounters Date Type Department Care Team (Late st Contact Info) Description 04/20/2025 10:00 AM EDT Office Visit [facility] CHC ADULT DENTAL [address] [place], [place] [phone] Gage Montano 04/26/2025 10:15 AM EDT Office Visit [facility] MEDICINE 230 [place] [address] Sarika Jenkins CNM [address] [place] [address] 05/07/2025 11:15 AM EDT Office Visit [facility] MED[facility] [address] [place] [address] Brooklyn Jalloh MD [address] [place] [address] documented as of this encounter Visit Diagnoses Not on filedocumented in this encounter Additional Health Concerns Assessment Noted Time PHQ-9 Depression Total Score: 6 02/05/20 11:27 AM EDT documented as of this encounter Care Teams Department Supervisor Relationship Specialty Start Date End Date Brooklyn Jalloh MD [address] [place] [address] PCP - General Family Medicine 07/17/21 documented as of this encounter
--- OUTSIDE RECORDS SUMMARY | 2025-04-02 12:16 | XMS_ITS | Encounter Summary ---
Author Organization [employer] Address [address] [facility] [address] 7t [place] [address] Care Team Providers Care Computer Systems Engineer Name Role Phone Brooklyn Jalloh MD Primary Care Provider [phone] Encounter Details Date Type Department Care Team ([facility] st Contact Info) Description 08/26/2024 Orders Only [facility] MEDICINE 230 [place], [place] [phone] Brooklyn Jalloh MD 230 [place], [place] [phone] Elevated alkaline phosphatase level (Primary Dx) Social [...] Description 04/20/2025 10:00 AM EDT Office Visit [facility] CHC ADULT DENTAL [address] [place] [address] Gage Montano 04/26/2025 10:15 AM EDT Office Visit [facility] MEDICINE [address] [place] [address] Sarika Jenkins CNM [address] [place] [address] 05/07/2025 11:15 AM EDT Office Visit [facility] MEDICINE [address] [place] [address] Brooklyn Jalloh MD [address] [place] [address] Scheduled Orders Name Type Priority Associated Diagnoses [...] documented as of this encounter Care Teams Computer Systems Engineer Relationship Specialty Start Date End Date Brooklyn Jalloh MD [address] [place] [address] PCP - General Family Medicine 07/17/21 documented as of this encounter
--- OUTSIDE RECORDS SUMMARY | 2025-04-02 12:16 | XMS_ITS | Encounter Summary ---
Author Organization [email or web address] Address [address] [facility] [address] 7t [place] [address] Care Team Providers Care Tax Attorney Name Role Phone Brooklyn Jalloh MD Primary Care Provider [phone] Encounter Details Date Type Department Care Team (Late st Contact Info) Description 02/15/2023 Orders Only [facility] MEDICINE 230 [place], [place] [phone] Brooklyn Jalloh MD 230 [place], [place] [phone] Ingrown toenail (Primary Dx) Social History Tobacco [...] Description 04/20/2025 10:00 AM EDT Office Visit [facility] CHC ADULT DENTAL [address] [place] [address] Gage Montano 04/26/2025 10:15 AM EDT Office Visit [facility] MEDICINE [address] [place] [phone] Sarika Jenkins CNM 230 [place] [address] 05/07/2025 11:15 AM EDT Office Visit [address] [address] Brooklyn Jalloh MD [address] [place] [address] documented as of this encounter Visit Diagnoses Diagnosis Ingrown toenail- Primary Ingrowing nail documented in this encounter Additional Health Concerns Assessment Noted Time PHQ-9 Depression Total Score: 6 02/05/20 23 11:27 AM EDT documented as of this encounter Care Teams Tax Attorney Relationship Specialty Start Date End Date Brooklyn Jalloh MD [address] [place] [address] PCP - General Family Medicine 07/17/21 documented as of this encounter
--- OUTSIDE RECORDS SUMMARY | 2025-04-02 12:16 | XMS_ITS | Encounter Summary ---
Author Organization [employer] Address [address] [facility] 7t [place] [address] Care Team Providers Care Guest Specialist Name Role Phone Brooklyn Jalloh MD Primary Care Provider [phone] Reason for Visit * Reason Onset Date Comments Medication Question 08/20/2024 Results 08/20/2024 Encounter Details Date Type Department Care Team ([facility] st Contact Info) Description 08/20/2024 Telephone [facility] MEDICINE 230 [place], [place] 2008140 Brooklyn Jalloh MD 230 [place], [place] [phone] Medication Question; Results Social History Tobacco Use [...] 2:40 PM EDT TC placed to pt [phone] via Elli in regards to below message. RN informed [...] - 08/20/2024 3:47 PM EDT Noted. Per [employer], shoulder Xray performed on 08/11/24 however interpretation [...] BW. Pt verbalized understanding. Pt also requesting ixgxumq-mszunartrljhz-[id number] medication be Rx'd again for her migraines. [...] results: Labs Date when done: 08/18/24 Facility: [facility] Labs Pt is also requesting Eletriptan medication for migraines but proposal lead writer did not see medication on med list. Please contact pt at [phone]. (Setswana Speaker) documented in this encounter Plan of Treatment Upcoming Encounters Date Type Department Care Team (Late st Contact Info) Description 04/20/2025 10:00 AM EDT Office Visit [facility] CHC ADULT DENTAL [address] [place] [address] Gage Montano 04/26/2025 10:15 AM EDT Office Visit [facility] MEDICINE [address] [place] [address] Sarika Jenkins CNM 230 [place] [address] 05/07/2025 11:15 AM EDT Office Visit [facility] MEDICINE [address] [place] [address] Brooklyn Jalloh MD [address] [place] [address] documented as of this encounter Visit Diagnoses Not on filedocumented in this encounter Additional Health Concerns Assessment Noted Time PHQ-9 Depression Total Score: 5 03/16/20 11:45 AM EDT documented as of this encounter Care Teams Guest Specialist Relationship Specialty Start Date End Date Brooklyn Jalloh MD 230 [place] [address] PCP - General Family Medicine 07/17/21 documented as of this encounter
--- OUTSIDE RECORDS SUMMARY | 2025-04-02 12:16 | XMS_ITS | Encounter Summary ---
Author Organization [employer] Address [address] [facility] 7t [place] [address] Care Team Providers Care Quantitative Manager Name Role Phone Brooklyn Jalloh MD Primary Care Provider [phone] Reason for Visit * Reason Onset Date Comments triage 03/06/2023 Encounter Details Date Type Department Care Team ([facility] st Contact Info) Description 03/06/2023 Telephone [facility] MEDICINE 230 [place], [place] [phone] Brooklyn Jalloh MD 230 [place], [place] [phone] triage Social History Tobacco Use Types Packs/Day [...] 03/06/2023 3:39 PM EDT triage call with [facility] Core Stripper [place] [id number] Pt reports itchiness on face. Pt reports this has been for two days and has some red spots now. Pt has had this before in different areas of the body. Pt has seen rate marker Cassie and jakob to help but doesn't know the name of the cream. Pt is offered to come to [facility] to be seen by provider but, declines. Pt wants only to have apt with rate marker will send to PCP nurse team to [...] now The caller accepted this outcome speaks welsh documented in this encounter Plan of Treatment Upcoming Encounters Date Type Department Care Team (Late st Contact Info) Description 04/20/2025 10:00 AM EDT Office Visit [facility] CHC ADULT DENTAL [address] [place] [address] Gage Montano 04/26/2025 10:15 AM EDT Office Visit [facility] MEDICINE 230 [place] [address] Sarika Jenkins CNM 230 [place] [address] 05/07/2025 11:15 AM EDT Office Visit [address] [address] Brooklyn Jalloh MD [address] [place] [address] documented as of this encounter Visit Diagnoses Not on filedocumented in this encounter Additional Health Concerns Assessment Noted Time PHQ-9 Depression Total Score: 6 02/05/20 23 11:27 AM EDT documented as of this encounter Care Teams Quantitative Manager Relationship Specialty Start Date End Date Brooklyn Jalloh MD [address] [place] [address] PCP - General Family Medicine 07/17/21 documented as of this encounter
--- OUTSIDE RECORDS SUMMARY | 2025-04-02 12:16 | XMS_ITS | Encounter Summary ---
Author Organization [employer] Address [address] [facility] 7t [place] [address] Care Team Providers Care Heavy Equipment Engine Mechanic Name Role Phone Brooklyn Jalloh MD Primary Care Provider [phone] Reason for Visit * Reason Comments Gynecologic Exam Encounter Details Date Type Department Care Team ([facility] st Contact Info) Description 03/30/2025 11:30 AM EDT Office Visit [facility] MEDICINE 230 [place], [place] [phone] Sarika Jenkins CNM 230 [place] [address] Cervical cancer screening (Primary Dx); Atrophic vaginitis [...] who presents for pap Last visit with oh 2022, rx'd vaginal estrogen. Supracervical hysterectomy with BSO for fibroids. Pap NIL/HPV negative 03/2018. Gonorrhea/Chlamydia/trichomonas negative 06/2024. HIV, Hep C negative. HBV vaccine in 2019. Normal mammogram 08/2024. Prison AMAB partner x 16y. No concerns for [...] kg/m?? Physical Exam Exam conducted with a service parts coordinator present (Karie Hendricks). Constitutional: Appearance: Normal appearance. Chest: Breasts: Right: [...] Description 04/20/2025 10:00 AM EDT Office Visit [facility] CHC ADULT DENTAL [address] [place] [address] Gage Montano 04/26/2025 10:15 AM EDT Office Visit [address] [address] Sarika Jenkins CNM 230 [place] [address] 05/07/2025 11:15 AM EDT Office Visit [address] [address] Brooklyn Jalloh MD [address] [place] [address] Scheduled Orders Name Type Priority Associated Diagnoses [...] documented as of this encounter Care Teams Heavy Equipment Engine Mechanic Relationship Specialty Start Date End Date Brooklyn Jalloh MD 230 [place] [address] PCP - General Family Medicine 07/17/21 documented as of this encounter
--- OUTSIDE RECORDS SUMMARY | 2025-04-02 12:16 | XMS_ITS | Encounter Summary ---
Author Organization [employer] Address [address] [facility] [address] 7t [place] [address] Care Team Providers Care Environmental Health Safety Manager Name Role Phone Brooklyn Jalloh MD Primary Care Provider [phone] Encounter Details Date Type Department Care Team (Late st Contact Info) Description 03/07/[address] [facility] MEDICINE 230 [place], [place] [phone] Brooklyn Jalloh MD 230 [place] [address] Rash of face (Primary Dx) Social History [...] Description 04/20/2025 10:00 AM EDT Office Visit [facility] CHC ADULT DENTAL [address] [place] [address] Gage Montano 04/26/2025 10:15 AM EDT Office Visit [facility] MEDICINE 230 [place], [place] [phone] Sarika Jenkins CNM 230 [place] [address] 05/07/2025 11:15 AM EDT Office Visit [address] [address] Brooklyn Jalloh MD [address] [place] [address] [phone] documented as of this encounter Visit Diagnoses Diagnosis Rash of face- Primary documented in this encounter Additional Health Concerns Assessment Noted Time PHQ-9 Depression Total Score: 6 02/05/20 23 11:27 AM EDT documented as of this encounter Care Teams Environmental Health Safety Manager Relationship Specialty Start Date End Date Brooklyn Jalloh MD [address] [place] [address] [phone] PCP - General Family Medicine 07/17/21 documented as of this encounter
--- OUTSIDE RECORDS SUMMARY | 2025-04-02 12:16 | XMS_ITS | Encounter Summary ---
Author Organization [employer] Address [address] [place] [address] 7t [place] [address] Care Team Providers Care Machine Stripper Name Role Phone Brooklyn Jalloh MD Primary Care Provider [phone] Reason for Referral * (Routine) - Closed Specialty Diagnoses / Procedures Referred By Contselvin t Referred To Contact Diagnoses Benign breast disease Procedures BI Mammogram Diagnostic same day Diagnostic same/ Day Right Brooklyn Jalloh MD [address] [place] [address] Phone: tel: fax: Referral ID Status Reason Start Date Expiration Date Visits Re quested Visits Authorized [id number] Closed 03/20/2023 09/16/2023 1 1 Encounter Details Date Type Department Care Team (Late st Contact Info) Description 03/20/2023 Orders Only [facility] MEDICINE 230 [place], [place] [phone] Brooklyn Jalloh MD [address] [place], [place] [phone] Benign breast disease (Primary Dx) Social History [...] Description 04/20/2025 10:00 AM EDT Office Visit [facility] CHC ADULT DENTAL [address] [place] [address] Gage Montano 04/26/2025 10:15 AM EDT Office Visit [facility] MEDICINE [address] [place] [address] Sarika Jenkins CNM 230 [place] [address] 05/07/2025 11:15 AM EDT Office Visit [address] [address] Brooklyn Jalloh MD [address] [place] [address] Scheduled Orders Name Type Priority Associated Diagnoses [...] as of this encounter Care Teams Machine Stripper Relationship Specialty Start Date End Date Brooklyn Jalloh MD [address] [place] [address] PCP - General Family Medicine 07/17/21 documented as of this encounter
--- OUTSIDE RECORDS SUMMARY | 2025-04-02 12:16 | XMS_ITS | Data Portability ---
Author Organization [place] [facility], [facility] Address [address] [place] [phone] Assessment Encounter Date Assessment Date Assessment LastModified [...] oil 0.01 % ear drops 2024 025 [facility], [address] [facility], [place], [place], [id number], 12/25/2024 12:01:14 Patient TargetsNo targets recorded. Patient [...] Address Organization Details Recorded Time Bilateral tinnitus 78475416408 02 Active 2022 Tinnitus, bilateral ; Note: Date Diagnosed : 04/18/2023 4:24 PM (H93.13) Not Available [facility] 03:26:19 Sensorine ural hearing loss of bilateral ears 029070029 Active 2022 Sensorine ural hearing loss, bilateral ; Note: Date Diagnosed : 04/18/2023 2:04 PM (H90.3) Not Available [facility] 4 03:26:18 Itching of skin 577449410 Active 2022 Other pruritus; Note: Date Diagnosed : 04/18/2023 4:24 PM (L29.8) Not Available [facility] 03:26:18 Problem Notes None recorded. Procedures Surgical History Date Name Laterality Status Provider Name and Address Organization Details Recorded Time 01/06/2025 Air & Speech Audio with Tymps - 59260, 32756 & 44032 completed NAJMA DENIS, [address], [address], [facility] - [facility] 01/06/2025 09:33:21 Imaging Results Imaging Date Name Status LastModified by Organiz ation Details LastModified Time 01/06/2025 audiogram completed [facility] Information no t available 01/06/2025 10:40:01 Procedure Notes None recorded. Medical Equipment None Reported. Allergies Allergen ID Allergen Name Allergen Category Reaction Reaction Severity Criticality Documentation Date Start Date Code Code System Note Provider Name and Address Organization Details Recorded Time 887637 Fish (substanc e) food,medi cation Not available Not available Not available 04/07/2024 77995 1005 SNOMED React ion: Hives , Rash; Not Available [facility] 4 01:27:00 Medications Name Sig Start [...] 800 mg tablet active Medicatio n ID: [id number] Br and Name: ibuprofen Send Method: E-Prescri bed Subs Allowed: subs OK Medica tionGener icName: ibuprofen Not Available Not Available Not Available fluconazol e 150 mg tablet TAKE 1 TABLET BY MOUTH FOR 1 DOSE active Not Available Not Available No t Available senna 8.6 mg tablet active Medicatio n ID: [id number] Br and Name: senna Sen d Method: [...] Updated DateTime 12/25/2024 165.1 cm 25.8 kg/m2 95179.82 g Kirsten Solis [place] - [facility] 12/25/2024 11:38:16 Social History None recorded. Functional Status None recorded. Mental Status None recorded. Family History Nothing Reported. Medical History No medical history recorded. Gynecological HistoryNo gynecological history recorded. Obstetrics History GPAL:G 0 P 0 0 0 0 Past Encounters Encounter ID Performer Location Encounter Start Date Encounter Closed Date Diagnosis/Indication Diagnosis SNOMED-CT Code Diagnosis ICD10 Code Diagnosis Note [id number] IMMANUEL CARCAMO PA-C [facility] [address] [address] 12/25/2024 11:28:54 12/25/2024 11:54:46 Itching of skin 447006223 L29.89 Sensorineu ral hearing loss of bilateral ears 753237822 H90.3 Bilateral tinnitus [address] 60229 102 H93.13 [id number] PATRIZIA FERREIRA [facility] [address] [address] 01/06/2025 09:20:17 01/06/2025 09:38:10 Sensorineural hearing loss of bilateral ears 134590309 H90.3 Audiologic al evaluation results: {{Normal sloping* [...] Recorded Advance Directives Directive None Recorded Payers Insurance Date Sequence Insurance Name Policy Number Policy Gordon Covered Member ID Gordon Member ID Guarantor Name 03/02/2025 1 [facility] [place] ([place]ICARE REPLAC[place]/ADV ANTAGE - HMO) Machelle Barroso [id number] Machelle Barroso 03/02/2025 1 [facility] - DOS ON OR AFTER 2023 - [employer] (MEDICARE REPLACEMENT/ADV ANTAGE - HMO) Machelle Barroso [id number] Machelle Barroso Notes Date Note Type Note [...] she is anxious. IMMANUEL CARCAMO PA-C [address] [facility],[address], [address], [facility] - [facility] 12/25/2024 12:24:29 01/06/2025 text/html Audiological Evaluation HPIReported bypatient.Hearing loss perceived:gradual onset PATRIZIA FERREIRA [address] [facility],[place] [address], [place], [address], [facility] - [facility] 01/06/2025 09:35:45 OBGyn Episode No OBEpisode recorded.
--- OUTSIDE RECORDS SUMMARY | 2025-04-02 12:16 | XMS_ITS | Encounter Summary ---
Author Organization [employer] Address 75 [facility] 7t [place] [address] Care Team Providers Care Roll Tender Name Role Phone Brooklyn Jalloh MD Primary Care Provider [phone] Reason for Visit * Reason Onset Date Comments Referral 05/10/2023 Encounter Details Date Type Department Care Team ([facility] st Contact Info) Description 05/10/2023 Telephone [facility] MEDICINE 230 [place], [place] [phone] Brooklyn Jalloh MD 230 [place], [place] [phone] Referral Social History Tobacco Use Types Packs/Day [...] to her toenails. Please contact pt at [phone] Danish Speaker documented in this encounter Plan of Treatment Upcoming Encounters Date Type Department Care Team (Late st Contact Info) Description 04/20/2025 10:00 AM EDT Office Visit [facility] ADULT DENTAL [address] [place] [address] Gage Montano 04/26/2025 10:15 AM EDT Office Visit [facility] MEDICINE 230 [place] [address] Sarika Jenkins CNM 230 [place] [address] 05/07/2025 11:15 AM EDT Office Visit [address] [address] Brooklyn Jalloh MD [address] [place] [address] [phone] documented as of this encounter Visit Diagnoses Not on filedocumented in this encounter Additional Health Concerns Assessment Noted Time PHQ-9 Depression Total Score: 6 02/05/20 23 11:27 AM EDT documented as of this encounter Care Teams Roll Tender Relationship Specialty Start Date End Date Brooklyn Jalloh MD [address] [place] [address] PCP - General Family Medicine 07/17/21 documented as of this encounter
--- OUTSIDE RECORDS SUMMARY | 2025-04-02 12:16 | XMS_ITS | Encounter Summary ---
Author Organization [employer] Address [address] [place] [address] Care Team Providers Care Petroleum Supply Specialist Name Role Phone Brooklyn Jalloh MD Primary Care Provider [phone] Encounter Details Date Type Department Care Team ([facility] st Contact Info) Description 03/19/2025 Orders Only [facility] MEDICINE [address] [place], [place] [phone] Brooklyn Jalloh MD [address] [place], [place] [phone] Contact with and (suspected) exposure to infections with a predominantly sexual mode of transmission (Primary Dx) Social History Tobacco Use Types [...] the past 12 months, has t he [employer] gas, oil or water company threatened to [...] Description 04/20/2025 10:00 AM EDT Office Visit [facility] CHC ADULT DENTAL [address] [place] [address] Gage Montano 04/26/2025 10:15 AM EDT Office Visit [facility] MEDICINE [address] [place] [address] Sarika Jenkins CNM [address] [place] [address] 05/07/2025 11:15 AM EDT Office Visit [address] [address] Brooklyn Jalloh MD [address] [place] [address] Scheduled Orders Name Type Priority Associated Diagnoses Orde r Schedule HIV-1/2 Antigen and Antibodies, Fourth Generation, with Reflexes Lab Routine Contact with and (suspected) exposure to infections with a predominantly sexual mode of transmission Expected: 04/02/2025 (Approximate), Expires: 04/02/2026 Hepatitis C Antibody with Reflex to HCV, RNA, Quantitative, Real-Time PCR Lab Routine Contact with and (suspected) exposure to infections with a predominantly sexual mode of transmission Expected: 04/02/2025, Expires: 04/02/2026 T-SPOT??.TB Lab Routine Contact with and (suspected) exposure to infections with a predominantly sexual mode of transmission Expected: 04/02/2025 (Approximate), Expires: 04/02/2026 documented as of this encounter Visit Diagnoses Diagnosis Contact with and (suspected) exposure to infections with a predominantly sexual mode of transmission- Primary documented in this encounter Additional Health Concerns Assessment Noted Time PHQ-9 Depression Total Score: 5 03/16/20 24 11:45 AM EDT documented as of this encounter Care Teams Petroleum Supply Specialist Relationship Specialty Start Date End Date Brooklyn Jalloh MD [address] [place] [phone] PCP - General Family Medicine 07/17/21 documented as of this encounter
--- OUTSIDE RECORDS SUMMARY | 2025-04-02 12:16 | XMS_ITS | Encounter Summary ---
Author Organization [email or web address] Address [address] [place] [address] Care Team Providers Care Instructional Systems Designer Name Role Phone Brooklyn Jalloh MD Primary Care Provider [phone] Encounter Details Date Type Department Care Team [...] [facility] [address] [place] [address] Gage Montano 04/26/2025 10:15 AM EDT Office Visit [facility] MEDICINE [address] [place] [phone] Sarika Jenkins CNM [address] [place] [address] 05/07/2025 11:15 AM EDT Office Visit [address] [address] Brooklyn Jalloh MD [address] [place] [address] documented as of this encounter Visit Diagnoses Not on filedocumented in this encounter Additional Health Concerns Assessment Noted Time PHQ-9 Depression Total Score: 5 03/16/20 24 11:45 AM EDT documented as of this encounter Care Teams Instructional Systems Designer Relationship Specialty Start Date End Date Brooklyn Jalloh MD [address] [place] [address] PCP - General Family Medicine 07/17/21 documented as of this encounter
--- OUTSIDE RECORDS SUMMARY | 2025-04-02 12:16 | XMS_ITS | Clinical Summary ---
Author Organization [address] [facility] Address [address] [place] [address] Phone Care Team Providers Care Yard Clerk Name Role Phone Brooklyn Jalloh MD Primary Care Provider [phone] Allergies Active Allergy Reactions Criticality Noted Date [...] AM EDT Office Visit [facility] [place] [address] [facility] [address] [place] [phone] Scot Durant DPM Pain in toes [...] Upcoming Encounters Date Type Department Care Team ([facility] st Contact Info) Description 04/15/2025 11:00 AM EDT Office Visit [facility] - [place] [address] [facility] [address] [place] [phone] Scot Durant, DPGirish [address] [facility] [address] [place] [address] Health Maintenance Due Date Last Done Comments [...] * Annual BMP Blood Test (08/31/2024) Pathologist [facility] Annual BMP Blood Test abstracted Result [facility] HEALTH MAINTENANCE Final Result * HIV Screening (08/18/2024) [facility] HIV Screening abstracted Result [facility] HEALTH MAINTENANCE Final Result * Hepatitis C Screening (08/18/2024) [facility] Hepatitis C Screening abstracted Result [facility] Provider HEALTH MAINTENANCE Final Result * Lipid panel (02/21/2021) [facility] LDL/HDL Ratio 0 Comment:abstracted, no inter pretation Triglycerides 0 mg/dL Comment:abstracted, no inter pretation Cholesterol 0 mg/dL Comment:abstracted, no inter pretation HDL 0 mg/dL Comment:abstracted, no inter pretation LDL Cholesterol 0 mg/dL Comment:abstracted, no inter pretation Blood Venous blood specimen / Unknown Result [facility] Provider LAB BLOOD ORDERABLES Julianne l Result from Last 3 Months or Most Recently Relevant to Health Maintenance Insurance [employer] MEDICARE Member Subscriber Plan / Payer (Ef fective 2018-Present) Name:Machelle Wooten Relation to Subscriber:Self Name:Machelle Wooten Payer ID:[id number] Group ID:[id number] Type:Not on file Address: [place] [address] [address] [phone] Care Teams Yard Clerk Relationship Specialty Start Date End Date Brooklyn Jalloh MD [address] [place] [address] PCP - General 09/12/22
--- OUTSIDE RECORDS SUMMARY | 2025-04-02 12:16 | XMS_ITS | Encounter Summary ---
Author Organization [employer] Address [address] [facility] 7[address] [place] [address] Care Team Providers Care Locomotive Firer Name Role Phone Brooklyn Jalloh MD Primary Care Provider [phone] Encounter Details Date Type Department Care Team (Late st Contact Info) Description 05/11/2023 Orders Only [facility] MEDICINE [address] [place], [place] [phone] Brooklyn Jalloh MD [address] [place] [address] Onychomycosis (Primary Dx) Social History Tobacco Use [...] Description 04/20/2025 10:00 AM EDT Office Visit [facility] CHC ADULT DENTAL [address] [place] [address] Gage Montano 04/26/2025 10:15 AM EDT Office Visit [facility] MEDICINE [address] [place] [phone] Sarika Jenkins CNM [address] [place] [address] 05/07/2025 11:15 AM EDT Office Visit [address] [address] Brooklyn Jalloh MD [address] [place] [address] documented as of this encounter Visit Diagnoses Diagnosis Onychomycosis- Primary Dermatophytosis of nail documented in this encounter Additional Health Concerns Assessment Noted Time PHQ-9 Depression Total Score: 6 02/05/20 23 11:27 AM EDT documented as of this encounter Care Teams Locomotive Firer Relationship Specialty Start Date End Date Brooklyn Jalloh MD [address] [place] [phone] PCP - General Family Medicine 07/17/21 documented as of this encounter
--- OUTSIDE RECORDS SUMMARY | 2025-04-02 12:16 | XMS_ITS | Encounter Summary ---
Author Organization [employer] Address [address] [facility] 7[address] [place] [address] Care Team Providers Care Hard Tile Setter Apprentice Name Role Phone Brooklyn Jalloh MD Primary Care Provider [phone] Encounter Details Date Type Department Care Team (Late st Contact Info) Description 01/28/2023 Orders Only [facility] MEDICINE [address] [place] [address] Sarika Jenkins CNM [address] [place] [address] Candidiasis of vulva and vagina (Primary Dx) [...] 04/20/2025 10:00 AM EDT Office Visit [facility] CHC ADULT DENTAL [address] [place] [address] Gage Montano 04/26/2025 10:15 AM EDT Office Visit [facility] MEDICINE [address] [place] [address] Sarika Jenkins CNM [address] [place] [address] 05/07/2025 11:15 AM EDT Office Visit [address] [address] Brooklyn Jalloh MD [address] [place] [address] documented as of this encounter Visit Diagnoses Diagnosis Candidiasis of vulva and vagina- Primary documented in this encounter Care Teams Hard Tile Setter Apprentice Relationship Specialty Start Date End Date Brooklyn Jalloh MD [address] [place] [phone] PCP - General Family Medicine 07/17/21 documented as of this encounter
--- OUTSIDE RECORDS SUMMARY | 2025-04-02 12:17 | XMS_ITS | Clinical Summary ---
Author Organization [employer] Address [address] [facility] 7t [place] [address] Care Team Providers Care Technical Training Specialist Name Role Phone Brooklyn Jalloh MD Primary Care Provider [phone] Allergies Active Allergy Reactions Criticality Noted Date [...] 6 HOURS NEEDED FOR HEADACHE 30 tablet 025 Active cholecalciferol (Vitamin D-3) 25 MCG [...] a week 42.5 g 2 025 Active estradiol (Estrace) 0.1 MG/GM vaginal [...] (08/12/2024 11:39 AM EDT): Continue followup with [facility] ortho for viscosupplementation Assessment & Plan (02/13/2023 [...] diabetic range Aguirre tart Metformin 500mg XR daiky Recheck in 3 months Lifestyle modifications and avoidance of simple sugars still advised Assessment & Plan (03/16/2024 1:14 PM EDT): Diet controlled Will start going to [facility] with her daughter as well Anxiety disorder [...] Encounters Date Type Department Care Team Description 03/31/[address] [address] Brooklyn Jalloh MD Lab Orders 03/30/2025 11:30 AM EDT Office Visit [address] [address] Sarika Jenkins CNM Cervical cancer screening (Primary Dx); Atrophic vaginitis 03/30/2025 Travel 03/26/[address] [address] Brooklyn Jalloh MD chartprep 03/20/2025 Orders Only GENERIC EXTERNAL DATA DEPARTMENT Provider, Generic External Data 03/19/2025 Orders Only [address] [address] Brooklyn Jalloh MD Contact with and (suspected) exposure to infections with a predominantly sexual mode of transmission (Primary Dx) 03/19/[address] [address] Brooklyn Jalloh MD Lab Orders 03/19/[address] [address] Brooklyn Jalloh MD Appointment Request 03/16/2025 Refill [facility] [address] [place] [address] Brooklyn Jalloh MD 03/01/[address] [address] Brooklyn Jalloh MD Mild persistent asthma without complication; Moderate persistent asthma with exacerbation 02/21/[address] [address] Brooklyn Jalloh MD 02/12/2025 Refill [facility] [address] [place] [address] Brooklyn Jalloh MD 02/09/2025 9:40 AM EDT Office Visit [facility] [place] [address] Raffi Mendoza MD Cough in adult patient (Primary Dx); Acute upper back pain 02/02/2025 11:00 [place] [address] Brooklyn Jalloh MD Prediabetes (Primary Dx); Dietary counseling; Exercise counseling; Class 1 obesity with serious comorbidity and body mass index (BMI) of 32.0 to 32.9 in adult, unspecified obesity type; Depression, recurrent (CMS/HCC); Primary hypertension; Obstructive sleep apnea syndrome; Calcific tendonitis of right shoulder; Cervical spondylosis; Stress incontinence of urine 02/02/2025 Travel 01/29/2025 [place] [address] Brooklyn Jalloh MD Med Refill 01/26/2025 [place] [address] Brooklyn Jalloh MD Pre-visit Planning (SDOH screening negative and tobacco screening negative) 01/25/2025 [place] [address] Brooklyn Jalloh MD Vitamin D deficiency 01/08/2025 11:00 AM EST Office Visit [facility] [place] [address] Trini Valdes MD Acute left-sided low back pain without sciatica (Primary Dx) 01/06/2025 Refill [facility] [address] [place] [address] Brooklyn Jalloh MD from Last 3 Months Immunizations Name Administration [...] [facility] [address] [place] [address] Gage Montano 04/26/2025 10:15 AM EDT Office Visit [facility] [address] [place] [address] Sarika Jenkins CNM [address] [place] [address] 05/07/2025 11:15 AM EDT Office Visit [facility] [address] [place] [address] Brooklyn Jalloh MD [address] [place] [address] Health Maintenance Due Date Last Done Comments [...] 03/30/2025 Dental X-Ray: Full Mouth 08/25/2027 08/24/2024, 04/26 Lipid Panel 10/11/2027 10/11/2022, 03, 08/09/2020 DTaP/Tdap/Td Vaccines (2 - Td or [...] EDT Narrative 03/20/2025 10:39 AM EDT ? [facility] ?[address] ?[place] [address] ?XRay Report ? Signed ? Patient: Machelle Wooten ?MR#: ?? [id number] ? : 1970 ?Acct:[id number] ? Age/Sex: 55 / F ?ADM Date: 03/20/25 ? Loc: HO.ED ? Attending Dr: ? Ordering Physician: Jahaira Velasco PHOTO INTERN ?? Date of Service: 03/20/25 ?? Procedure(s): XR KUB ?? Accession Number(s): [id number] ? cc: Brooklyn Jalloh; Jahaira Velasco PHOTO INTERN ? CLINICAL HISTORY: constipation, lower abd pain [...] DD/ 1038 ? TD/TT: 03/20/25 1038 ? Creasing Machine Operator: ? Procedure Note Josselyn, Glenn - 03/20/[address] [address] XRay Report Signed Patient: Marquise WootenKota#: [id number] : 1970Acct:[id number] Age/Sex: 55 / FADM Date: 03/20/25 Loc: HO.ED Attending Dr: Ordering Physician: Jahaira Velasco NP Date of Service: 03/20/25 Procedure(s): XR KUB Accession Number(s): [id number] cc: Brooklyn Jalloh; Jahaira Velasco NP CLINICAL [...] 03/20/25 1039 DD/ 1038 TD/TT: 03/20/25 1038 Creasing Machine Operator: [facility] External Provider IMG XR PROCEDURES Edited Result - Final * XR Lumbar Spine 2-3 Views (03/20/2025 10:37 AM EDT) Anatomical Region Laterality Modality Spine, L-spine Radiographic Zina ging 03/20/2025 10:3 7 AM EDT Narrative 03/20/2025 10:39 AM EDT ? [facility] ?[address] ?[place] [address] ?XRay Report ? Signed ? Patient: Machelle Wooten ?MR#: ?? [id number] ? : 1970 ?Acct:[id number] ? Age/Sex: 55 / F ?ADM Date: 04/26/25 ? Loc: HO.ED ? Attending Dr: ? Ordering Physician: Jahaira Velasco PHOTO INTERN ?? Date of Service: 04/26/25 ?? Procedure(s): XR lumbar spine 2-3V ?? Accession Number(s): [id number] ? cc: Brooklyn Jalloh; Jahaira Velasco PHOTO INTERN ? CLINICAL HISTORY: midline tenderness ? 3 [...] DD/ 1037 ? TD/TT: 03/20/25 1037 ? Creasing Machine Operator: ? Procedure Note Michaelerasto, Image - 03/20/[address] [address] XRay Report Signed Patient: Machelle WootenMR#: [id number] : 1970Acct:[id number] Age/Sex: 55 / FADM Date: 03/20/25 Loc: HO.ED Attending Dr: Ordering Physician: Jahaira Velasco NP Date of Service: 03/20/25 Procedure(s): XR lumbar spine 2-3V Accession Number(s): [id number] cc: Brooklyn Jalloh; Jahaira Velasco NP CLINICAL [...] 03/20/25 1039 DD/ 1037 TD/TT: 03/20/25 1037 Creasing Machine Operator: us [facility] External Provider IMG XR PROCEDURES Edited Result - Final * XR Chest 2 Views (03/20/2025 10:36 AM EDT) Anatomical Region Laterality Modality Chest Radiographic Zina ging 03/20/2025 10:3 6 AM EDT Narrative 03/20/2025 10:37 AM EDT ? [facility] ?[address] ?[place] [address] ?XRay Report ? Signed ? Patient: Machelle Wooten ?MR#: ?? [id number] ? : 1970 ?Acct:[id number] ? Age/Sex: 55 / F ?ADM Date: 03/20/25 ? Loc: HO.ED ? Attending Dr: ? Ordering Physician: Jahaira Velasco PHOTO INTERN ?? Date of Service: 03/20/25 ?? Procedure(s): XR chest 2V ?? Accession Number(s): [id number] ? cc: Brooklyn Jalloh; Jahaira Velasco PHOTO INTERN ? CLINICAL HISTORY: lung pain ? 2 [...] DD/ 1036 ? TD/TT: 03/20/25 1036 ? Creasing Machine Operator: ? Procedure Note Glenn Arcos - 03/20/[address] [address] XRay Report Signed Patient: Machelle WootenMR#: [id number] : 1970Acct:[id number] Age/Sex: 55 / FADM Date: 03/20/25 Loc: HO.ED Attending Dr: Ordering Physician: Jahaira Velasco NP Date of Service: 03/20/25 Procedure(s): XR chest 2V Accession Number(s): [id number] cc: Brooklyn Jalloh; Jahaira Velasco NP CLINICAL [...] 03/20/25 1037 DD/ 1036 TD/TT: 03/20/25 1036 Creasing Machine Operator: [facility] External Provider IMG XR PROCEDURES Edited Result - Final * SARS-CoV-2 RNA, Influenza A/B, and RSV RNA, Ql NAAT (03/20/2025 10:18 AM EDT) Influenza A PCR NEGATIVE Negative [facility] Influenza B PCR NEGATIVE Negative [facility] Resp Syncy Virus RNA Qual PCR NEGATIVE Negative [facility] SARS COV2 PCR NEGATIVE Negative [facility] Comment:All test results mus t [...] use by authorized laboratories.Testing performed on the [employer] GeneXpert utilizingreal-time RT-PCR.All SARS CoV2 and positive influenza A/B results arereported to [facility]. 03/20/2025 10:1 8 AM EDT 03/20/2025 10:23 AM EDT Generic External Data Provider LAB MICROBIOLOGY - GENERAL ORDERABLES Final Result Performing Organization Address [facility] de Phone Number [facility] [address] [place] [phone] * Urinalysis w/reflex microscopic (03/20/2025 9:45 AM EDT) Color Urine Yellow [facility] Appearance Urine Clear [facility] PH 6.5 5.0 - 9.0 [facility] Glucose Urine UA Negative Negative mg/dL [facility] Urine Blood Negative Negative [facility] Specific [place] - Urine <=1.005 1.005 - 1.025 [facility] Urine Protein Negative Neg-Trace mg/dL [facility] Urine Ketones Negative Negative mg/dL [facility] Nitrite Urine Negative Negative [facility] Leukocyte Esterase Urine Negative Negative [facility] 03/20/2025 9:45 AM EDT 03/20/2025 9:58 AM EDT Narrative [facility] - 03/20/2025 10:07 AM EDT [id number], Clean Catch Generic External Data Provider LAB URINE ORDERAB LES Final Result Performing Organization Address [facility] [[email or web address]] Co de Phone Number [facility] [address] [place] [phone] * Referral to Orthopaedic Surgery (02/11/2025) us Jeremie Walker MD OUTPATIENT REFERRAL O RDERABLES Final Result * Influenza B (ID NOW Rapid Molecular) (02/09/2025 10:04 AM EDT) Influenza B Negative Negative, Indeterminate [facility] Swab 02/09/2025 10:0 4 AM EDT us Raffi Mendoza MD POINT OF CARE TEST ENTER/EDIT OR DERABLES Final Result Performing Organization Address City/[facility]/ZIP Co de Phone Number [facility] [address] [place] [phone] * Influenza A (ID NOW Rapid Molecular) (02/09/2025 10:03 AM EDT) Pathologist [facility] Influenza A Negative Negative, Indeterminate [facility] Swab 02/09/2025 10:0 3 AM EDT Raffi Mendoza MD POINT OF CARE TEST ENTER/EDIT OR DERABLES Final Result Performing Organization Address [facility] [[email or web address]] Co de Phone Number [facility] [address] [place] [phone] * POCT Rapid COVID Ag (02/09/2025 9:55 AM EDT) [facility] Rapid COVID Ag Negative Swab 02/09/2025 9:55 AM EDT Result [facility] Raffi Mendoza MD POINT OF CARE TEST ENTER/EDIT OR DERABLES Final Result * (ABNORMAL) POCT HGB A1C (02/02/2025 11:04 AM EDT) [facility] Hemoglobin A1C 6.1(A) 4.0 - 6.0 % QC Media Lot # [id number] Lot# Expiration Date Blood 02/02/2025 11:0 4 AM EDT us Brooklyn Jalloh MD POINT OF CARE TEST ENTER/EDIT ORDERABLES Final Result * POCT Glucose (02/02/2025 11:04 AM EDT) [facility] Glucose Blood, POC 84 60 - 200 mg/dL QC Media Lot # [id number] Lot# Expiration Date [id number] Blood Capillary blood specimen / Unknown 02/02/2025 11:04 AM EDT Brooklyn Jalloh MD POINT OF CARE TEST ENTER/EDIT ORDERABLES Final Result * POCT urinalysis dipstick manually resulted (01/08/2025 10:52 AM EST) Color, UA Yellow Clarity, UA Clear Glucose, [...] Real-Time PCR (08/18/2024 11:14 AM EDT) Pathologist [facility] Hepatitis C Antibody Nonreactive Nonreactive [facility] Comment:Antibodies to HCV no t detected; does not exclude early acuteHCV infection. Blood Venous blood specimen / Unknown 08/18/2024 11:14 AM EDT 08/18/2024 1:13 PM EDT Brooklyn Jalloh MD LAB BLOOD ORDERABLES Final Res ult [facility] [address] [place] [phone] * HIV-1/2 Antigen and Antibodies, Fourth Generation, with Reflexes (08/18/2024 11:14 AM EDT) HIV AB/AG Nonreactive Nonreactive [facility] Comment:HIV-1 p24 Ag and/or HIV-1/HIV-2 Ab not detected.A test result that is nonreactive does not exclude thepossibility of exposure to or infection with HIV-1 and/orHIV-2. Nonreactive results in this assay for individualswith prior exposure to HIV-1 and/or HIV-2 may be due toantigen and antibody levels that are below the limit ofdetection of this assay.The [employer] Alinity HIV Ag/Ab Combo assay result andsupplemental assay results should be interpreted inconjunction with the patient's clinical presentation,history and other laboratory results. If the results areinconsistent with clinical evidence, additional testing issuggested to confirm the result. Blood Venous blood specimen / Unknown 08/18/2024 11:14 AM EDT 08/18/2024 1:13 PM EDT Brooklyn Jalloh MD LAB BLOOD ORDERABLES Final Res ult [facility] [address] [place] [phone] * BI US Breast Limited Right (08/18/2024) Anatomical Region Laterality Modality Breast Right Ultrasound Lilian Holcomb SALES OFFICER IMG US PROCEDURES Final Result * (ABNORMAL) Hm Colonoscopy (05/13/2023) [facility] Colonoscopy Abnormal( A) Normal Comment:see scanned report 05/13/2023 Brooklyn Jalloh MD HEALTH MAINTENANCE Final Resul t * (ABNORMAL) LIPID PANEL, STANDARD (10/11/2022 8:02 AM EST) Pathologist [facility] Chol/HDLC Ratio 3.7 <5.0 (calc) CONVERTED LEGACY [...] ?? LDL-C is now calculated using the Denver-Liu ?? calculation, which is a validated novel method providing ?? better accuracy than the Friedewald equation in the ?? estimation of LDL-C. ?? Mitch SS et al. ARACELI. 2013;310(19): 2132-8194 ?? (http://Grabit/faq/XZI187) Non-HDL Cholesterol 117 <130 mg/dL (calc) CONVERTED [...] HPV mRNA E6/E7 Not Detected NOT DETECTED [facility] Comment: This test was performed using the APTIMA(R) HPV Assay ([employer] This assay detects E6/E7 viral messenger RNA (mRNA) from 14 high-risk HPV types (16,18,31,33,35,39,45,51, 52,56,58,59,66,68). For additional information please refer to: http://education.FX Aligned/faq/VHY207r9 (This link is being provided for informational/ educational purposes only.) The analytical performance characteristics of this assay have been determined by [employer] [place], [place]. The modifications have not been cleared or approved by the FDA. This assay has been validated pursuant to the CLIA regulations and is used for clinical purposes. Test Performed by [facility], [facility], [address] [place] [phone] Toni Lopez M.D., Ph.D., Director of Laboratories , [facility] [id number] Please note: ??Effective 08/06/2016, HPV testing will be performed using [employer]'s APTIMA test which targets mRNA. Detecting mRNA instead of DNA, as in older methods, offers significant improvements in specificity. 04/23/2018 10:0 6 AM EDT us Sarika Jenkins CNM HISTORICAL/NON ORDERABLE LABS Final Result [facility] [address] from Last 3 Months or Most Recently Relevant to Health Maintenance Insurance [facility] < [address] [facility] Care Teams Technical Training Specialist Relationship Specialty Start Date End Date Brooklyn Jalloh MD [address] [place] [phone] PCP - General Family Medicine 07/17/21
--- OUTSIDE RECORDS SUMMARY | 2025-04-02 12:17 | XMS_ITS | Encounter Summary ---
Author Organization [employer] Address [address] [place] [address] 7t [place] [address] Care Team Providers Care Body Cleaner Name Role Phone Brooklyn Jalloh MD Primary Care Provider [phone] Encounter Details Date Type Department Care Team (Latest Contact Info) Description 05/12/2019 Abstract [facility] Dental, Provider, DDS Social History [...] Description 04/20/2025 10:00 AM EDT Office Visit [facility] [address] [place] [address] Gage Montano 04/26/2025 10:15 AM EDT Office Visit [facility] [address] [place] [phone] Sarika Jenkins CNM [address] [place] [phone] 05/07/2025 11:15 AM EDT Office Visit [facility] [address] [place] [address] Brooklyn Jalloh MD [address] [place] [phone] documented as of this encounter Visit Diagnoses Not on filedocumented in this encounter Care Teams Body Cleaner Relationship Specialty Start Date End Date Brooklyn Jalloh MD [address] [place] [address] PCP - General Family Medicine 07/17/21 documented as of this encounter
--- OUTSIDE RECORDS SUMMARY | 2025-04-02 12:17 | XMS_ITS | Encounter Summary ---
Author Organization [employer] Address [address] [facility] 7t [place] [address] Care Team Providers Care Oil Change Technician Name Role Phone Brooklyn Jalloh MD Primary Care Provider [phone] Reason for Visit * Reason Onset Date Comments Lab Orders 03/31/2025 Encounter Details Date Type Department Care Team ([facility] st Contact Info) Description 03/31/2025 Telephone [facility] [address] [place], [place] [phone] Brooklyn Jalloh MD [address] [place], [place] [phone] Lab Orders Social History Tobacco Use Types [...] Telephone Encounter - Kasandra Hawk RN - 04/02/2025 9:52 AM EDT TC placed to patient [phone] using [place] # [place] [id number] regarding below message. RN informed patientthat her PCP ordered her labs and they can be obtained anytime. Pt verbalized understanding. P to F/U PRN. * Telephone Encounter - Jovita Gallagher RN - 03/31/2025 12:30 PM EDT TC placed to patient [phone] to inquire on below request. Patient reports she would like to betested for TB, HIV and Hep C. Patient reports her partner tested positive for TB recently and has an appointment with TB clinic on 04/20. Patient is not sure if partner has active or latent TB. Patient also reports her partner is a substance user and she is aware HIV and Hep C can be transmitted vianeedle sharing. Patient would like to be safe and therefore would like to be tested for HIV and HepC as well. Please review and advise if agreeable to order TB testing, HIV and Hep C testing. Thank you! * Telephone Encounter - Siriagatito Kiser - 03/31/2025 11:31 AM EDT Patient called in, was transferred to the wrong extension by CRS. Patient called in requesting lab orders for TB, Hep C and HIV. documented in this encounter Plan of Treatment Upcoming Encounters Date Type Department Care Team (Late st Contact Info) Description 04/20/2025 10:00 AM EDT Office Visit [facility] [address] [place] [address] Gage Montano 04/26/2025 10:15 AM EDT Office Visit [facility] [address] [place] [address] Sarika Jenkins CNM [address] [place] [address] 05/07/2025 11:15 AM EDT Office Visit [address] [address] Brooklyn Jalloh MD [address] [place] [address] documented as of this encounter Visit Diagnoses Not on filedocumented in this encounter Additional Health Concerns Assessment Noted Time PHQ-9 Depression Total Score: 5 03/16/20 24 11:45 AM EDT documented as of this encounter Care Teams Oil Change Technician Relationship Specialty Start Date End Date Brooklyn Jalloh MD [address] [place] [phone] PCP - General Family Medicine 07/17/21 documented as of this encounter
--- OUTSIDE RECORDS SUMMARY | 2025-04-02 12:17 | XMS_ITS | Encounter Summary ---
Author Organization [employer] Address [address] [place] [address] 7t [place] [address] Care Team Providers Care Purchasing Coordinator Name Role Phone Brooklyn Jalloh MD Primary Care Provider [phone] Reason for Visit * Reason Comments Med Refill Encounter Details Date Type Department Care Team (Late st Contact Info) Description 07/29/2023 Refill [facility] [address] [place] [address] Brooklyn Jalloh MD [address] [place], [place] [phone] Social History Tobacco Use Types Packs/Day Years [...] [facility] [address] [place] [address] Gage Montano 04/26/2025 10:15 AM EDT Office Visit [facility] [address] [place], [place] [phone] Sarika Jenkins CNM [address] [place], [place] [phone] 05/07/2025 11:15 AM EDT Office Visit [facility] [address] [place], [place] [phone] Brooklyn Jalloh MD [address] [place], [place] [phone] documented as of this encounter Visit Diagnoses Not on filedocumented in this encounter Additional Health Concerns Assessment Noted Time PHQ-9 Depression Total Score: 6 02/05/20 23 11:27 AM EDT documented as of this encounter Care Teams Purchasing Coordinator Relationship Specialty Start Date End Date Brooklyn Jalloh MD [address] [place], [place] [phone] PCP - General Family Medicine 07/17/21 documented as of this encounter
--- OUTSIDE RECORDS SUMMARY | 2025-04-02 12:17 | XMS_ITS | Encounter Summary ---
Author Organization [employer] Address [address] [facility] 7t [place] [address] Care Team Providers Care Supervisor Reinforced Steel Placing Name Role Phone Brooklyn Jalloh MD Primary Care Provider [phone] Encounter Details Date Type Department Care Team (Late st Contact Info) Description 07/23/2023 Abstract [facility] [address] [place] [phone] Brooklyn Jalloh MD [address] [place] [address] [phone] Social History Tobacco Use Types Packs/Day Years [...] Description 04/20/2025 10:00 AM EDT Office Visit [facility] [address] [place] [address] Gage Montano 04/26/2025 10:15 AM EDT Office Visit [facility] [address] [place] [phone] Sarika Jenkins CNM [address] [place] [address] 05/07/2025 11:15 AM EDT Office Visit [facility] [address] [place], [place] [phone] Brooklyn Jalloh MD [address] [place], [place] [phone] documented as of this encounter Visit Diagnoses Not on filedocumented in this encounter Additional Health Concerns Assessment Noted Time PHQ-9 Depression Total Score: 6 02/05/20 23 11:27 AM EDT documented as of this encounter Care Teams Supervisor Reinforced Steel Placing Relationship Specialty Start Date End Date Brooklyn Jalloh MD [address] [place] [phone] PCP - General Family Medicine 07/17/21 documented as of this encounter
--- OUTSIDE RECORDS SUMMARY | 2025-04-02 12:17 | XMS_ITS | Encounter Summary ---
Author Organization [employer] Address [address] [facility] 7t [place] [address] Care Team Providers Care Operations Vocational Instructor Name Role Phone Brooklyn Jalloh MD Primary Care Provider [phone] Encounter Details Date Type Department Care Team (Latest Contact Info) Description 06/27/2022 Abstract [facility] CONVERSIONS Dental, Provider, DDS Social History [...] Description 04/20/2025 10:00 AM EDT Office Visit [facility] [address] [place] [address] Gage Montano 04/26/2025 10:15 AM EDT Office Visit [facility] [address] [place] [phone] Sarika Jenkins CNM [address] [place] [phone] 05/07/2025 11:15 AM EDT Office Visit [facility] [address] [place] [address] Brooklyn Jalloh MD [address] [place] [phone] documented as of this encounter Visit Diagnoses Not on filedocumented in this encounter Care Teams Operations Vocational Instructor Relationship Specialty Start Date End Date Brooklyn Jalloh MD [address] [place] [address] PCP - General Family Medicine 07/17/21 documented as of this encounter
--- OUTSIDE RECORDS SUMMARY | 2025-04-02 12:17 | XMS_ITS | Encounter Summary ---
Author Organization [employer] Address [address] [facility] 7t [place] [address] Care Team Providers Care Cloth Tester Quality Name Role Phone Brooklyn Jalloh MD Primary Care Provider [phone] Reason for Referral * Consultation (Routine) - Closed Specialty Diagnoses / Procedures Referred By Contac t Referred To Contact Orthopaedic Surgery Diagnoses Primary osteoarthritis of both knees Brooklyn Jalloh MD [address] [place] [address] Phone: tel: fax: [facility] [address] [place] [address] Phone: tel: Referral ID Status Reason Start Date Expiration Date V isits Requested Visits Authorized [id number] Closed Specialty Services Required 02/18/2024 02/17/2025 1 1 Encounter Details Date Type Department Care Team (Late st Contact Info) Description 02/18/2024 Orders Only [facility] [address] [place] [address] Brooklyn Jalloh MD [address] [place], [place] [phone] Primary osteoarthritis of both knees (Primary Dx) [...] Description 04/20/2025 10:00 AM EDT Office Visit [facility] ADULT DENTAL [address] [place] [address] Gage Montano 04/26/2025 10:15 AM EDT Office Visit [facility] [address] [place] [phone] Sarika Jenkins CNM [address] [place] [address] 05/07/2025 11:15 AM EDT Office Visit [address] [address] Brooklyn Jalloh MD [address] [place] [address] Scheduled Referrals Name Type Priority Associated Diagnoses [...] EDT Narrative 03/09/2024 2:27 PM EDT ? [facility] ?[address] ?[place] [address] ?XRay Report ? Signed ? Patient: Machelle Wooten ?MR#: ?? [id number] ? : 1970 ?Acct:[id number] ? Age/Sex: 54 / F ?ADM Date: 03/09/24 ? Loc: HO.ED ? Attending Dr: ? Ordering Physician: Zack Lainez ?? Date of Service: 03/09/24 ?? Procedure(s): XR chest 2V ?? Accession Number(s): [id number] ? cc: Brooklyn Jalloh; Zack Lainez ? [...] OV> ?03/09/244 ? DD/ ? TD/TT: ? Telemarketer Supervisor: CB ? Procedure Note Glenn Arcos - 03/09/[address] [address] XRay Report Signed Patient: Machelle WootenMR#: [id number] : 1970Acct:[id number] Age/Sex: 54 / FADM Date: 03/09/24 Loc: HO.ED Attending Dr: Ordering Physician: Zack aLinez Date of Service: 03/09/24 Procedure(s): XR chest 2V Accession Number(s): [id number] cc: Brooklyn Jalloh; Zack Lainez EXAMINATION: XR [...] DO inOV> 03/09/24 1424 DD/ 1408 TD/TT: Telemarketer Supervisor: [facility] External Provider IMG XR PROCEDURES Edited Result - Final documented in this encounter Visit Diagnoses Diagnosis Primary osteoarthritis of both knees- Primary documented in this encounter Additional Health Concerns Assessment Noted Time PHQ-9 Depression Total Score: 6 02/05/20 23 11:27 AM EDT documented as of this encounter Care Teams Cloth Tester Quality Relationship Specialty Start Date End Date Brooklyn Jalloh MD [address] [place] [address] PCP - General Family Medicine 07/17/21 documented as of this encounter
--- OUTSIDE RECORDS SUMMARY | 2025-04-02 12:17 | XMS_ITS | Encounter Summary ---
Author Organization [employer] Address [address] [facility] [address] 7t [place] [address] Care Team Providers Care Women'S Apparel Salesperson Name Role Phone Brooklyn Jalloh MD Primary Care Provider [phone] Encounter Details Date Type Department Care Team (Late st Contact Info) Description 12/22/2023 Orders Only [facility] [address] [place], [place] [phone] Brooklyn Jalloh MD [address] [place], [place] [phone] Bronchitis (Primary Dx) Social History Tobacco Use [...] Description 04/20/2025 10:00 AM EDT Office Visit [facility] ADULT DENTAL [address] [place] [address] Gage Montano 04/26/2025 10:15 AM EDT Office Visit [facility] [address] [place] [address] Sarika Jenkins CN [address] [place] [address] 05/07/2025 11:15 AM EDT Office Visit [address] [address] Brooklyn Jalloh MD [address] [place] [address] documented as of this encounter Procedures Procedure Name Priority Date/Time Associated Diagnosis Comments CBC WITH AUTO DIFFERENTIAL Routine 12/25/2023 12:28 PM EST Bronchitis documented in this encounter Results * (ABNORMAL) CBC auto differential (12/25/2023 12:28 PM EST) White Blood Count 15.4(H) 4.8 - 10.8 X10*3/uL [facility] Red Blood Count 5.11 4.20 - 5.50 X10*6/uL [facility] Hemoglobin 13.7 12.0 - 16.0 g/dl [facility] Hematocrit 42.6 37.0 - 47.0 % [facility] Mean Corpuscular Volume 83.4 80.0 - 98.0 fL [facility] Mean Corpuscular Hemoglobin 26.8(L) 27.0 - 33.0 pg [facility] Mean Corpuscular HGB Conc 32.2 31.0 - 35.0 g/dl [facility] Red Cell Distribution Width 13.9 11.0 - 16.0 % [facility] Platelet Count 442(H) 160 - 400 X10*3/uL [facility] Mean Platelet Volume 10.1 9.4 - 12.3 fL [facility] Neutrophils Percent Auto 71.8 45 - 73 % [facility] Imm Gran Pct Auto 0.5(H) 0.0 - 0.4 % [facility] Lymphocytes Percent Auto 20.8 20 - 40 % [facility] Monocytes Percent Auto 6.7 2 - 11 % [facility] Eosinophils Percent Auto 0.1 0 - 4 % [facility] Basophils Percent Auto 0.1 0 - 2 % [facility] NRBC Pct Auto 0.0 0.0 - 0.2 /100WBC [facility] Neutrophils Absolute Auto 11.0(H) 2.0 - 8.3 x10*3/uL [facility] Imm Gran Abs Auto 0.08(H) 0.00 - 0.03 X10*3/uL [facility] Lymphocytes Absolute Auto 3.2 1.2 - 4.9 X10*3/uL [facility] Monocytes Absolute Auto 1.0 0.1 - 1.2 X10*3/uL [facility] Eosinophils Absolute Auto 0.0 0.0 - 0.4 X10*3/uL [facility] Basophils Absolute Auto 0.0 0.0 - 0.2 X10*3/uL [facility] NRBC Abs Auto 0.000 0.0 - 0.012 X10*3/uL [facility] Blood Venous blood specimen / Unknown 12/25/2023 12:28 PM EST 12/25/2023 1:09 PM EST us Brooklyn Jallho MD LAB BLOOD ORDERABLES Final Res ult [facility] [address] [place] [address] [phone] documented in this encounter Visit Diagnoses Diagnosis Bronchitis- Primary Bronchitis, not specified as acute or chronic documented in this encounter Additional Health Concerns Assessment Noted Time PHQ-9 Depression Total Score: 6 02/05/20 23 11:27 AM EDT documented as of this encounter Care Teams Women'S Apparel Salesperson Relationship Specialty Start Date End Date Brooklyn Jalloh MD [address] [place] [phone] PCP - General Family Medicine 07/17/21 documented as of this encounter
--- OUTSIDE RECORDS SUMMARY | 2025-04-02 12:17 | XMS_ITS | Encounter Summary ---
Author Organization [employer] Address 75 [facility] 7t [place] [address] Care Team Providers Care Biomedical Scientist Name Role Phone Brooklyn Jalloh MD Primary Care Provider [phone] Encounter Details Date Type Department Care Team (Late Contact Info) Description 11/12/2022 Orders Only [facility] [address] [place] [phone] Brooklyn Jalloh MD [address] [place] [phone] Social History Tobacco Use Types Packs/Day Years [...] Description 04/20/2025 10:00 AM EDT Office Visit [facility] CH[facility] ADULT DENTAL [address] [place] [address] Gage Montano 04/26/2025 10:15 AM EDT Office Visit [facility] [address] [place] [address] Sarika Jenkins CNM [address] [place], [place] [phone] 05/07/2025 11:15 AM EDT Office Visit [facility] [address] [place], [place] [phone] Brooklyn Jalloh MD [address] [place], [place] [phone] documented as of this encounter Visit Diagnoses Not on filedocumented in this encounter Care Teams Biomedical Scientist Relationship Specialty Start Date End Date Brooklyn Jalloh MD [address] [place], [place] [phone] PCP - General Family Medicine 07/17/21 documented as of this encounter
--- OUTSIDE RECORDS SUMMARY | 2025-04-02 12:17 | XMS_ITS | Encounter Summary ---
Author Organization [employer] Address 75 [facility] 7t [place] [address] Care Team Providers Care Epoxy Specialist Name Role Phone Brooklyn Jalloh MD Primary Care Provider [phone] Encounter Details Date Type Department Care Team (Latest Contact Info) Description 04/06/2021 Abstract [facility] CONVERSION[facility] Dental, Provider, DDS Social History [facility] [address] [place] [address] Gage Montano 04/26/2025 10:15 AM EDT Office Visit [facility] [address] [place] [address] Sarika Jenkins CNM [address] [place] [address] 05/07/2025 11:15 AM EDT Office Visit [facility] [address] [place] [address] Brooklyn Jalloh MD [address] [place] [address] documented as of this encounter Visit Diagnoses Not on filedocumented in this encounter Care Teams Epoxy Specialist Relationship Specialty Start Date End Date Brooklyn Jalloh MD [address] [place] [address] PCP - General Family Medicine 07/17/21 documented as of this encounter
--- OUTSIDE RECORDS SUMMARY | 2025-04-02 12:17 | XMS_ITS | Encounter Summary ---
Author Organization [employer] Address 75 [facility] 7t [place] [address] Care Team Providers Care Laboratory Tech Name Role Phone Brooklyn Jalloh MD Primary Care Provider [phone] Reason for Visit * Reason Onset Date Comments Medication Question 11/19/2024 Encounter Details Date Type Department Care Team ([facility] st Contact Info) Description 11/19/2024 Telephone [facility] [address] [place], [place] [phone] Brooklyn Jalloh MD [address] [place], [place] [phone] Medication Question Social History Tobacco Use Types [...] Description 04/20/2025 10:00 AM EDT Office Visit [facility] ADULT DENTAL [address] [place] [address] Gage Montano 04/26/2025 10:15 AM EDT Office Visit [facility] [address] [place] [address] Sarika Jenkins CNM [address] [place] [address] 05/07/2025 11:15 AM EDT Office Visit [facility] [address] [place] [address] Brooklyn Jalloh MD [address] [place] [address] documented as of this encounter Visit Diagnoses Not on filedocumented in this encounter Additional Health Concerns Assessment Noted Time PHQ-9 Depression Total Score: 5 03/16/20 24 11:45 AM EDT documented as of this encounter Care Teams Laboratory Tech Relationship Specialty Start Date End Date Brooklyn Jalloh MD [address] [place] [address] PCP - General Family Medicine 07/17/21 documented as of this encounter
--- OUTSIDE RECORDS SUMMARY | 2025-04-02 12:17 | XMS_ITS | Encounter Summary ---
Author Organization [email or web address] Address 75 [facility] 7t [place] [address] Care Team Providers Care Acid Conditioner Name Role Phone Brooklyn Jalloh MD Primary Care Provider [phone] Reason for Visit * Reason Onset Date Comments referral 11/29/2023 Encounter Details Date Type Department Care Team ([facility] st Contact Info) Description 11/29/2023 Telephone [facility] [address] [place], [place] [phone] Brooklyn Jalloh MD [address] [place], [place] [phone] referral Social History Tobacco Use Types Packs/Day [...] Tc from pt requesting a Referral for [facility] Gastrology with Dr. Aldrich @ [address] [place] [address] to be further Evaluated for her Diagnoses @ the [facility] of gastroenteritis. Please contact pt @ [phone] documented in this encounter Plan of Treatment Upcoming Encounters Date Type Department Care Team (Late st Contact Info) Description 04/20/2025 10:00 AM EDT Office Visit [facility] ADULT DENTAL [address] [place] [address] Gage Montano 04/26/2025 10:15 AM EDT Office Visit [facility] [address] [place] [address] Sarika Jenkins CNM [address] [place] [address] 05/07/2025 11:15 AM EDT Office Visit [facility] [address] [place] [address] Brooklyn Jalloh MD [address] [place] [phone] documented as of this encounter Visit Diagnoses Not on filedocumented in this encounter Additional Health Concerns Assessment Noted Time PHQ-9 Depression Total Score: 6 02/05/20 23 11:27 AM EDT documented as of this encounter Care Teams Acid Conditioner Relationship Specialty Start Date End Date Brooklyn Jalloh MD [address] [place] [address] PCP - General Family Medicine 07/17/21 documented as of this encounter
--- OUTSIDE RECORDS SUMMARY | 2025-04-02 12:17 | XMS_ITS | Encounter Summary ---
Author Organization [employer] Address [address] [facility] [address] 7[address] [place] [address] Care Team Providers Care Ore Crushing Dust Collector Name Role Phone Brooklyn Jalloh MD Primary Care Provider [phone] Encounter Details Date Type Department Care Team ([facility] st Contact Info) Description 03/10/2024 Orders Only [facility] [address] [place], [place] [phone] Brooklyn Jalloh MD [address] [place], [place] [phone] Social History Tobacco Use Types Packs/Day Years [...] the past 12 months, has t he [employer], gas, oil or water company threatened to [...] Description 04/20/2025 10:00 AM EDT Office Visit [facility] CHC ADULT DENTAL [address] [place] [address] Gage Montano 04/26/2025 10:15 AM EDT Office Visit [facility] [address] [place] [address] Sarika Jenkins CNM [address] [place] [address] 05/07/2025 11:15 AM EDT Office Visit [address] [address] Brooklyn Jalloh MD [address] [place] [address] documented as of this encounter Visit Diagnoses Not on filedocumented in this encounter Additional Health Concerns Assessment Noted Time PHQ-9 Depression Total Score: 6 02/05/20 23 11:27 AM EDT documented as of this encounter Care Teams Ore Crushing Dust Collector Relationship Specialty Start Date End Date Brooklyn Jalloh MD [address] [place] [address] [phone] PCP - General Family Medicine 07/17/21 documented as of this encounter
[2025-04-02 14:17] LABS: Anion Gap 11 (12-20); Blood Urea Nitrogen 14 mg/dL (9-16); Calcium 9.4 mg/dL (8.4-10.2); Carbon Dioxide 26 mmol/L (22-29); Chloride 103 mmol/L (96-108); Estimated Glomerular Filt Rate > 60; Glucose Random 110 mg/dL (60-115); Potassium 3.6 mmol/L (3.3-5.1); Sodium 136 mmol/L (135-145)
[2025-04-03 03:59] LABS: HIV AB/AG Nonreactive (Nonreactive); HIV Num 1 0.05 S/CO (0.00-0.99); ~HepC Num1 0.18 S/CO (0.00-0.79); ~Hepatitis C Antibody Nonreactive (Nonreactive)
[2025-04-05 22:34] LABS: TS Negative Control Passed; TS Panel A 0; TS Panel B 0; TS Positive Control Passed; TSpotTB Negative (Negative)
[2025-04-06 13:18] LABS: Mitochondrial Antibodies NEGATIVE (NEGATIVE)
== END 2025-04-02 11:48 | disposition home or self-care (01) ==
LOC: HO.HHCL 11:47
PROVIDERS: Visit Provider General Practice
DX: Z20.2 Contact with and (suspected) exposure to infections with a predominantly sexual mode of transmission (principal); R74.8 Abnormal levels of other serum enzymes; I10 Essential (primary) hypertension; Z11.4 Encounter for screening for human immunodeficiency virus [HIV]
CPT/HCPCS: 36415; 80048; 86381; 86481; 86803; 87389

== ENCOUNTER 2025-05-17 16:09 | Outpatient (REF) | payer OTHER, SELFPAY ==
--- OUTSIDE RECORDS SUMMARY | 2025-05-17 15:00 | XMS_ITS | Encounter Summary ---
Author Organization [employer] Address [address] [place] [address] Care Team Providers Care Loss Prevention Manager Name Role Phone Brooklyn Jalloh MD Primary Care Provider [phone] Reason for Visit * Reason Comments Asthma Encounter Details Date Type Department Care Team (Latest Contact Info) Description 05/17/2025 3:00 PM EDT Office Visit [facility] [address] [place] [address] [phone] Ludy Knutson MD [address] [place] [address] Oropharyngeal candidiasis (Primary Dx); COPD with acute exacerbation ([facility]/HCC); Screening examination for STI; Pharyngitis, unspecified etiology Social History Tobacco Use Types Packs/Day Years [...] Answer Date Recorded Patient Health Questionnaire-9 Score 14 05/07/2025 Patient Health Questionnaire-9 Score 14 05/07/2025 Last PHQ-9: Questionnaire Data Not on file 0 05/07/2025 Housing Stability Answer Date Recorded What is [...] Answer Date Recorded Patient Health Questionnaire-2 Score 3 05/07/2025 Internet Access Answer Date Recorded Internet Access [...] Sign Reading Time Taken Comments Blood Pressure 105/68 05/17/2025 2:06 PM EDT Pulse 83 05/17/2025 2:06 PM EDT Temperature 36.7 C (98.1 F) 05/17/2025 2:06 PM EDT Respiratory Rate 20 05/17/2025 2:06 PM EDT Oxygen Saturation 100% 05/17/2025 2:06 PM EDT Inhaled Oxygen Concentration - - Weight 86.9 kg (191 lb 9.6 oz) 05/17/2025 2:06 P M EDT Height - - Body Mass Index 30.93 05/07/2025 11:08 AM EDT documented in this encounter Progress Notes * Ludy Knutson MD - 05/17/2025 3:00 PM EDT SUBJECTIVE: Machelle Barroso is a 55 y.o. year old female who presents for Walk In Center/asthma. Denies recent illness, injury, or hospitalization. Acute Concerns: Complaining of worsening dry cough and shortness of breath for the past 3 days, no fever, no pleuritic chest pain. Symptoms partially improved with albuterol as needed. She has sore throat and some dysphagia for about 1 week. She does not have any fever. She tells me that she does not rinse her mouth after using asthma inhalers. Patient is concerned regarding STI blair [employer] partner is an active drug user Social History Social History Narrative Lives with AMAB partner Two grandchildren unemployed Problem List[1] Family History[2] Review of Systems Constitutional: Negative for chills, fatigue and fever. HENT: Positive for sore throat. Negative for congestion, ear pain, nosebleeds, rhinorrhea, sinus pressure and trouble swallowing. Eyes: Negative for pain and discharge. Respiratory: Positive for chest tightness and shortness of breath. Negative for cough. Cardiovascular: Negative for chest pain, palpitations and leg swelling. Gastrointestinal: Negative for abdominal pain, blood in stool, constipation, diarrhea and nausea. Endocrine: Negative for polydipsia and polyuria. Genitourinary: Negative for dysuria, frequency, genital sores, pelvic pain and vaginal discharge. Musculoskeletal: Negative for back pain and neck pain. Skin: Negative for rash. Allergic/Immunologic: Negative for environmental allergies. Neurological: Negative for dizziness, seizures, weakness, light-headedness and headaches. Hematological: Negative for adenopathy. Psychiatric/Behavioral: Negative for agitation, behavioral problems, self-injury and suicidal ideas. OBJECTIVE: Vitals: 05/17/25 1406 BP: 105/68 Pulse: 83 Resp: 20 Temp: 98.1 ??F (36.7 ??C) SpO2: 100% Physical Exam HENT: Right Ear: Tympanic membrane and ear canal normal. Left Ear: Tympanic membrane and ear canal normal. Mouth/Throat: Mouth: Mucous membranes are moist. Tongue: Lesions (White macular lesions) present. Pharynx: No oropharyngeal exudate (White macular lesions) or posterior oropharyngeal erythema. Eyes: Pupils: Pupils are equal, round, and reactive to light. Cardiovascular: Rate and Rhythm: Regular rhythm. Pulses: Normal pulses. Heart sounds: Normal heart sounds. No murmur heard. Pulmonary: Breath sounds: Examination of the right-lower field reveals wheezing. Examination of the left-lowerfield reveals wheezing. Wheezing present. Abdominal: General: Bowel sounds are normal. Palpations: Abdomen is soft. Tenderness: There is no abdominal tenderness. Musculoskeletal: General: Normal range of motion. Cervical back: Neck supple. Skin: General: Skin is warm. Neurological: General: No focal deficit present. Mental Status: She is alert and oriented to person, place, and time. Psychiatric: Mood and Affect: Mood normal. Behavior: Behavior normal. Problem List Items Addressed This Visit COPD with acute exacerbation (CMS/HCC) Advised to use albuterol every 4 hours x 2 days then every 6 hours as needed x 10 days Continue using Breo twice daily daily, should rinse her mouth after application Oropharyngeal candidiasis - Primary It is likely related to not rinsing mouth after inhaled steroid application. Rx fluconazole x 14 days GC/chlamydia testing of pharyngeal area and follow-up results Relevant Medications fluconazole (Diflucan) 100 MG tablet Screening examination for STI Patient high risk for STI due to patient's partner being a drug user. Most recent STI testing is negative and she has not been sexually active since. Discussed about STI prevention including condom use and PrEP (both oral and injectable). Patient agreed to be STI tested, advised to follow-up with PCP or CRS/STI clinic if she is interested on PrEP. Relevant Medications fluconazole (Diflucan) 100 MG tablet Other Visit Diagnoses Pharyngitis, unspecified etiology Relevant Orders Chlamydia/N. Gonorrhoeae RNA, TMA, Throat Follow Up: Medications Ordered Prior to Encounter[3] [1] Patient Active Problem List Diagnosis Anxiety disorder Arthritis of right knee Biliary colic Cervical spondylosis Cholelithiasis without obstruction Degeneration of lumbar intervertebral disc HTN (hypertension) Acid reflux H/O: hysterectomy Fibromyalgia History of cholecystectomy HLD (hyperlipidemia) Mild persistent asthma Osteoarthritis Prediabetes Scoliosis Trigger finger Benign breast disease Urinary incontinence Vaginitis Elevated alkaline phosphatase level Depression, recurrent (CMS/HCC) Calcific tendonitis of right shoulder Precordial pain Bilateral tinnitus Other pruritus Sensorineural hearing loss (SNHL) of both ears Oropharyngeal candidiasis COPD with acute exacerbation (CMS/HCC) Screening examination for STI [2] No family history on file. [3] Current Outpatient Medications on File Prior to Visit Medication Sig Dispense Refill acetaminophen (Tylenol 8 Hour) 650 MG ER tablet TAKE 1 TABLET BY MOUTH EVERY 6 HOURS NEEDED SWALLOW WHOLE WITH WATER DO NOT BREAK, CRUSH, DISSOLVE OR CHEW 90 tablet 3 albuterol (2.5 MG/3ML) 0.083% nebulizer solution Take 3 mL (2.5 mg) by nebulization every 4 (four) hours if needed for wheezing. 90 mL 11 albuterol 108 (90 Base) MCG/ACT inhaler Inhale every 6 (six) hours. atorvastatin (Lipitor) 40 MG tablet Take 1 tablet (40 mg) by mouth Once per day. 90 tablet 3 busPIRone (Buspar) 10 MG tablet Take 10 mg by mouth 2 times daily. cholecalciferol (Vitamin D-3) 25 MCG tablet TAKE 1 TABLET BY MOUTH EVERY DAY 90 tablet 3 cyclobenzaprine (Flexeril) 10 MG tablet take 1 tablet by mouth three times a day as needed for muscle spasm Diclofenac Sodium 1 % gel Apply to affected area up to 4x daily 50 g 3 docusate sodium (Colace) 100 MG capsule TAKE 1 CAPSULE BY MOUTH TWICE DAILY NEEDED FOR CONSTIPATION 180 capsule 3 estradiol (Estrace) 0.1 MG/GM vaginal cream 1g vaginally nightly x 14 days, then 1 g vaginally twice a week 42.5 g 2 fluocinolone (DermOtic) 0.01 % ear drops APPLY 4 DROPS IN EACH EAR TWICE DAILY FOR ONE WEEK THEN USE UP TO TWICE A WEEK NEEDED FLUoxetine (PROzac) 20 MG capsule Take 40 mg by mouth in the morning. fluticasone (Flonase) 50 MCG/ACT nasal spray INSTILL 2 SPRAYS IN EACH NOSTRIL ONCE DAILY IN THE MORNING 16 g 3 Fluticasone Furoate-Vilanterol (Breo Ellipta) 100-25 MCG/ACT aerosol powder Inhale 1 puff at bed time. gabapentin (Neurontin) 100 MG capsule TAKE 1 CAPSULE BY MOUTH EVERY DAY 30 capsule 11 glucose blood (FREESTYLE LITE) test strip 1 each by Other route Once per day. 100 each 6 HealthyLax 17 g packet Mix 1 packet in 8 ounces of water, juice, coffee or tea and drink once a dayAS NEEDED FOR CONSTIPATION 30 packet 6 ipratropium (Atrovent) 0.06 % nasal spray PLEASE SEE ATTACHED FOR DETAILED DIRECTIONS ketoconazole (NIZOral) 2 % cream Ketotifen Fumarate 0.035 % solution Administer 1 drop into affected eye(s) in the morning and 1 drop in the evening. 10 mL 2 lactulose (Chronulac) 10 GM/15ML solution TAKE 15 ML BY MOUTH EVERY DAY NEEDED FOR CONSTIPATION lidocaine (Lidoderm) 5 % patch Apply 1 patch topically Once per day. Remove & discard patch within 12 hours or as directed by MD. 30 patch 1 lisinopril 5 MG tablet TAKE 1 TABLET BY MOUTH EVERY DAY 90 tablet 3 loratadine (Claritin) 10 MG tablet TAKE 1 TABLET BY MOUTH EVERY DAY 90 tablet 3 metFORMIN XR (Glucophage-XR) 500 MG 24 hr tablet TAKE 1 TABLET BY MOUTH ONCE DAILY WITH EVENING MEAL DO NOT BREAK, CRUSH, DISSOLVE OR CHEW metFORMIN, OSM, (Fortamet) 500 MG 24 hr tablet Take 1 tablet (500 mg) by mouth with evening meal. Do not crush, chew, or split. 90 tablet 3 Multiple Vitamin (Multivitamin) tablet TAKE 1 TABLET BY MOUTH EVERY MORNING 90 tablet 3 nortriptyline (Pamelor) 10 MG capsule TAKE 1 CAPSULE BY MOUTH EVERY DAY AT BEDTIME NEEDED FOR BACK PAIN 90 capsule 3 omeprazole (PriLOSEC) [address] capsule TAKE 1 CAPSULE BY MOUTH ONCE DAILY NEEDED FOR HEARTBURN 90 capsule 3 Pain Reliever Plus 250-250-65 MG tablet TAKE 1 TABLET BY MOUTH EVERY 6 HOURS NEEDED FOR [id number] tablet 3 Respiratory Therapy Supplies (Adult Aerosol Mask) misc USE DIRECTED WITH NEBULIZER Respiratory Therapy Supplies (Nebulizer/Tubing/Mouthpiece) kit To be used with Nebulizer 1 kit 0 simethicone (Mylicon) 80 MG chewable tablet CHEW AND SWALLOW 1 TABLET BY MOUTH EVERY 8 HOURS NEEDED FOR GAS 90 tablet 3 sucralfate (Carafate) 1 g tablet DISSOLVE 1 TABLET IN CAPFUL OF WATER & SWALLOW TWICE DAILY traZODone (Desyrel) 50 MG tablet Take 1 tablet by mouth in the morning. triamcinolone (Kenalog) 0.1 % cream MIX WITH cerave AND APPLY A THIN LAYER TO AFFECTED AREA(S) TWICE DAILY DIRECTED 80 g 3 TRUEplus Lancets 33G misc Apply 1 each topically Once per day. 100 each 6 No current facility-administered medications on file prior to visit. documented in this encounter Miscellaneous Notes * Assessment & Plan Note - Ludy Knutson MD - 05/17/2025 4:16 PM EDT Associated Problem(s): Screening examination for STI Patient high risk for STI due to patient's partner being a drug user. Most recent STI testing is negative and she has not been sexually active since. Discussed about STI prevention including condom use and PrEP (both oral and injectable). Patient agreed to be STI tested, advised to follow-up with PCP or CRS/STI clinic if she is interested on PrEP. * Assessment & Plan Note - Ludy Knutson MD - 05/17/2025 4:15 PM EDT Associated Problem(s): COPD with acute exacerbation (CMS/HCC) Advised to use albuterol every 4 hours x 2 days then every 6 hours as needed x 10 days Continue using Breo twice daily daily, should rinse her mouth after application * Assessment & Plan Note - Ludy Knutson MD - 05/17/2025 4:14 PM EDT Associated Problem(s): Oropharyngeal candidiasis It is likely related to not rinsing mouth after inhaled steroid application. Rx fluconazole x 14 days GC/chlamydia testing of pharyngeal area and follow-up results documented in this encounter Plan of Treatment Upcoming Encounters Date Type Department Care Team (Late st Contact Info) Description 06/11/2025 10:30 AM EDT Office Visit [facility] ADULT DENTAL [address] [place] [address] Javad Neville DDS [address] [place] [address] 06/25/2025 10:30 AM EDT Office Visit [facility] ADULT DENTAL [address] [place] [address] Javad Neville DDS [address] [place], [place] [phone] 08/13/2025 11:15 AM EDT Office Visit [facility] MEDICINE [address] [place] [address] Brooklyn Jalloh MD [address] [place], [place] [phone] Scheduled Orders Name Type Priority Associated Diagnoses Orde r Schedule Chlamydia/N. Gonorrhoeae RNA, TMA, Throat Microbiology Routine Pharyngitis, unspecified etiology Expected: 05/17/2025 (Approximate), Expires: 05/17/2026 documented as of this encounter Visit Diagnoses Diagnosis Oropharyngeal candidiasis- Primary Candidiasis of mouth COPD with acute exacerbation ([facility]) Screening examination for STI Pharyngitis, unspecified etiology documented in this encounter Additional Health Concerns Assessment Noted Time PHQ-9 Depression Total Score: 14 025 12:17 PM EDT documented as of this encounter Care Teams Loss Prevention Manager Relationship Specialty Start Date End Date Brooklyn Jalloh MD [address] [place] [address] [phone] PCP - General Family Medicine 07/17/21 documented as of this encounter
== END 2025-05-17 16:10 | disposition home or self-care (01) ==
LOC: HO.HHCLNP 16:09
PROVIDERS: Visit Provider Internal Medicine
DX: Z13.89 Encounter for screening for other disorder (principal)
CPT/HCPCS: 87491; 87591

== ENCOUNTER 2025-05-21 17:31 | Outpatient (REF) | payer OTHER, SELFPAY ==
[2025-05-25 22:13] LABS: C. Trachomatis RNA TMA, Throat NOT DETECTED; N. gonorrhoeae RNA TMA, Throat NOT DETECTED
== END 2025-05-21 17:32 | disposition home or self-care (01) ==
LOC: HO.HHCLNP 17:31
PROVIDERS: Visit Provider Nurse Practitioner Family
DX: J02.9 Acute pharyngitis, unspecified (principal); Z20.2 Contact with and (suspected) exposure to infections with a predominantly sexual mode of transmission
CPT/HCPCS: 87491; 87591

== ENCOUNTER 2025-07-13 16:40 | Outpatient (REF) | payer OTHER, SELFPAY ==
--- OUTSIDE RECORDS SUMMARY | 2025-07-13 17:49 | XMS_ITS | Encounter Summary ---
Author Organization [employer] Address [address] [facility] [address] [place] [address] Care Team Providers Care Customer Solutions Representative Name Role Phone Brooklyn Jalloh MD Primary Care Provider [phone] Encounter Details Date Type Department Care Team (Late st Contact Info) Description 01/28/2023 Orders Only [facility] MEDICINE [address] [place] [address] Sarika Jenkins CNM [address] [place] [address] Candidiasis of vulva and vagina (Primary Dx) [...] Care Team (Late st Contact Info) Description 08/13/2025 11:15 AM EDT Office Visit [facility] MED[facility] [address] [place] [address] Brooklyn Jalloh MD [address] [place] [address] documented as of this encounter Visit Diagnoses Diagnosis Candidiasis of vulva and vagina- Primary documented in this encounter Care Teams Customer Solutions Representative Relationship Specialty Start Date End Date Brooklyn Jalloh MD [address] [place] [phone] PCP - General Family Medicine 07/17/21 documented as of this encounter
--- OUTSIDE RECORDS SUMMARY | 2025-07-13 17:49 | XMS_ITS | Clinical Summary ---
Author Organization [address] [facility] Address [address] [place] [address] Phone Care Team Providers Care Seat Cover Maker Name Role Phone Brooklyn Jalloh MD Primary Care Provider Allergies Active Allergy Reactions Criticality Noted Date Comments Other 07/02/2023 Seafood Medications ketoconazole (NIZORAL) 2 % cream Apply cream to the affected areas of the bottom and top of feet twice daily 08/31/2024 Active chlorhexidine (Betasept Surgical Scrub) 4 % external liquid USE DIRECTED TO CLEAN FEET TWICE DAILY DIRECTED 02/14/2024 Active Social History Tobacco Use Types Packs/Day Years [...] Care Team (Late st Contact Info) Description 08/03/2025 11:00 AM EDT Office Visit Orthopedic Surgery - [place] [address] [phone] Scot Durant DPM [address] [address] Health Maintenance Due Date Last Done Comments Breast Cancer Screening 1970 Pneumococcal Vaccine: 50+ Years (1 of 2 - PCV) 02/25/1987 Cervical Cancer Screening: Pap Smear 02/25/1989 Colorectal Cancer Screening: Colonoscopy 12/20/2023 Medicare Annual Wellness Visit 12/20/2023 Social Influencers of Health Screening 12/20/2023 COVID-19 Vaccine ( season) 2024 11/07/2021, 03/29/2021, 03/01/2021 Depression Screening 11/25/2024 Influenza Vaccine (#1) 2025 , 08/23/2023, 09/17/2022, Additional history exists Hypertension/CHF/CAD Annual BMP Blood Test 08/31/2025 08/31/2024, [...] 08/18/2024 Hepatitis C Screening Completed 08/18/2024, 024 HIB Vaccines Aged Out No longer eligi [...] * Annual BMP Blood Test (08/31/2024) Pathologist [facility] Annual BMP Blood Test abstracted [facility] HEALTH MAINTENANCE Final Result * HIV Screening (08/18/2024) [facility] HIV Screening abstracted [facility] HEALTH MAINTENANCE Final Result * Hepatitis C Screening (08/18/2024) [facility] Hepatitis C Screening abstracted [facility] HEALTH MAINTENANCE Final Result * Lipid panel (02/21/2021) [facility] LDL/HDL Ratio 0 Comment:abstracted, no inter pretation Triglycerides 0 mg/dL Comment:abstracted, no inter pretation Cholesterol 0 mg/dL Comment:abstracted, no inter pretation HDL 0 mg/dL Comment:abstracted, no inter pretation LDL Cholesterol 0 mg/dL Comment:abstracted, no inter pretation Blood Venous blood specimen / Unknown Result [facility] Provider LAB BLOOD ORDERABLES Julianne l Result from Last 3 Months or Most Recently Relevant to Health Maintenance Insurance [facility] MEDIC[facility] Member Subscriber Plan / Payer (Ef fective 2018-Present) Name:MACHELLE CUNNINGHAM Relation to Subscriber:Self Name:Machelle Cunningham Payer ID:[id number] Group ID:[id number] Type:Not on file Address: [address] [place] [id number] Care Teams Seat Cover Maker Relationship Specialty Start Date End Date Brooklyn Jalloh MD [address] [place] [address] PCP - General 09/12/22
== END 2025-07-13 16:41 | disposition home or self-care (01) ==
LOC: HO.HHCLNP 16:40
PROVIDERS: Visit Provider Internal Medicine
DX: R10.30 Lower abdominal pain, unspecified (principal)
CPT/HCPCS: 87086

== ENCOUNTER 2025-07-19 14:06 | Outpatient (REF) | payer OTHER, SELFPAY ==
--- NOTE | ~2025-07-19 | XR_ITS ---
EXAMINATION: XR CHEST 2 VIEWS HISTORY: Chronic cough with pleuritic pain COMPARISON: Comparison is made with the prior examination dated 03/20/2025. FINDINGS: PA and lateral views of the chest are submitted. The lungs are expanded and clear. There is no pleural effusion, pneumothorax, or pulmonary vascular congestion. The heart is normal in size. There is mild degenerative disc disease of the spine. XR/XR chest 2V IMPRESSION: No acute cardiopulmonary abnormality. Electronically signed by: Lencho Benítez MD 07/19/2025 02:33 PM EDT
--- OUTSIDE RECORDS SUMMARY | 2025-07-19 13:40 | XMS_ITS | Encounter Summary ---
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 [place] [address] [place] [address] Chronic cough (Primary Dx); Viral URI Social [...] 1:24 PM EDT documented in this encounter Plan of Treatment Upcoming Encounters Date Type Department Care Team (Late st Contact Info) Description 08/13/2025 11:15 AM EDT Office Visit [facility] MEDICINE [address] [place] [address] Brooklyn Jalloh MD [address] [place] [address] documented as of this encounter Procedures Procedure [...] NOW Rapid Molecular) (07/19/2025 1:59 PM EDT) [facility] Influenza B Negative Negative, Indeterminate [facility] Swab 07/19/2025 1:59 PM EDT Zhane Gandhi MD POINT OF CARE TEST ENTER/EDIT ORDERABLES Final Result Performing Organization Address [facility] de Phone Number [facility] [address] [place] [phone] * Influenza A (ID NOW Rapid Molecular) (07/19/2025 1:59 PM EDT) [facility] Influenza A Negative Negative, Indeterminate [facility] Swab 07/19/2025 1:59 PM EDT Zhane Gandhi MD POINT OF CARE TEST ENTER/EDIT ORDERABLES Final Result Performing Organization Address [facility] Co de Phone Number [facility] [address] [place] [phone] * POCT Rapid COVID Ag (07/19/2025 1:59 PM EDT) [facility] Rapid COVID Ag Negative [facility] Swab 07/19/2025 1:59 PM EDT Zhane Gandhi MD POINT OF CARE TEST ENTER/EDIT ORDERABLES Final Result Performing Organization Address [facility] Phone Number [facility] [address] [place] [phone] * XR Chest 2 Views (07/19/2025 1:29 PM EDT) Anatomical Region Laterality Modality Chest Radiographic Zina ging 07/19/2025 1:29 PM EDT Narrative 07/19/2025 2:36 PM EDT [address] [address] XRay Report Signed Patient: Machelle Wooten MR#: [id number] : 1970 Acct:[id number] Age/Sex: 55 / F ADM Date: 07/19/25 Loc: HO.HHCX Attending Dr: Zhane Gandhi MD Ordering Physician: Zhane Gandhi MD Date of Service: 07/19/25 Procedure(s): XR chest 2V Accession Number(s): [id number] cc: Zhane Gandhi MD EXAMINATION: XR CHEST [...] 07/19/25 1433 DD/ 1329 TD/TT: 07/19/25 1400 Language Translator: Procedure Note Donotuseinterpreter, Image - 07/19/[address] [address] XRay Report Signed Patient: Machelle WootenMR#: [id number] : 1970Acct:[id number] Age/Sex: 55 / FADM Date: 07/19/25 Loc: HO.HHCX Attending Dr: Zhane Gandhi MD Ordering Physician: Zhane Gandhi MD Date of Service: 07/19/25 Procedure(s): XR chest 2V Accession Number(s): [id number] cc: Zhane Gandhi MD EXAMINATION: XR CHEST [...] Lencho Benítez MD 07/19/2025 02:33 PM EDT RP Dictated By: Lencho Benítez MD Signed By: <Electronically signed by Lencho Benítez MD in OV> 07/19/25 1433 DD/ 1329 TD/TT: 07/19/25 1400 Language Translator: Zhaen Gandhi MD IMG XR PROCEDURES Final Resul t documented in this encounter Visit Diagnoses Diagnosis Chronic cough- Primary Cough Viral URI Acute upper respiratory infections of unspecified site documented in this encounter Additional Health Concerns Assessment Noted Time PHQ-9 Depression Total Score: 14 025 12:17 PM EDT documented as of this encounter Care Teams Woodworking Machine Operator Relationship Specialty Start Date End Date Brooklyn Jalloh MD [address] [place] [phone] PCP - General Family Medicine 07/17/21 documented as of this encounter
--- OUTSIDE RECORDS SUMMARY | 2025-07-19 15:29 | XMS_ITS | Clinical Summary ---
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 Active albuterol 108 (90 Base) MCG/ACT inhaler Inhale every 6 (six) hours. 022 Active busPIRone (Buspar) 10 MG tablet Take 10 mg by mouth 2 times daily. 023 Active fluocinolone (DermOtic) 0.01 % ear drops APPLY 4 DROPS IN EACH EAR TWICE DAILY FOR ONE WEEK THEN USE UP TO TWICE A WEEK NEEDED 023 Active FLUoxetine (PROzac) 20 MG capsule Take 40 mg by mouth in the morning. 023 Active ketoconazole (NIZOral) 2 % cream 023 Active Respiratory Therapy Supplies (Adult Aerosol Mask) [facility] USE DIRECTED WITH NEBULIZER 023 Active docusate [...] SEE ATTACHED FOR DETAILED DIRECTIONS 024 Active Respiratory Therapy Supplies (Nebulizer/Tubing /Mouthpiece) kit To be used with Nebulizer 1 kit Active sucralfate (Carafate) 1 g tablet DISSOLVE 1 TABLET IN CAPFUL OF WATER & SWALLOW TWICE DAILY Active metFORMIN, OSM, (Fortamet) 500 MG 24 [...] as directed by MD. 30 patch 1 Active cholecalciferol (Vitamin D-3) 25 MCG tabletIndications :Vitamin D deficiency TAKE 1 TABLET BY MOUTH EVERY DAY 90 tablet 3 025 Active glucose blood (FREESTYLE LITE) test strip 1 each by Other route Once per day. 100 each 025 2026 Active TRUEplus Lancets 33G misc Apply 1 each topically Once per day. 100 each 025 Active gabapentin (Neurontin) 100 MG capsule TAKE 1 CAPSULE BY MOUTH EVERY DAY 30 capsule 025 Active omeprazole (PriLOSEC) [address] capsule TAKE 1 CAPSULE BY MOUTH ONCE DAILY NEEDED FOR HEARTBURN 90 capsule 3 025 Active Multiple Vitamin (Multivitamin) tabletIndications [...] a week 42.5 g 2 025 Active acetaminophen (Tylenol 8 Hour) 650 MG ER tablet TAKE 1 TABLET BY MOUTH EVERY 6 HOURS NEEDED SWALLOW WHOLE WITH WATER DO NOT BREAK, CRUSH, DISSOLVE OR CHEW 90 tablet 3 Active nortriptyline (Pamelor) 10 MG capsule TAKE 1 CAPSULE BY MOUTH EVERY DAY AT BEDTIME NEEDED FOR BACK PAIN 90 capsule 3 Active Pain Reliever Plus 250-250-65 MG tablet TAKE 1 TABLET BY MOUTH EVERY 6 HOURS NEEDED FOR HEADACHE 30 tablet 3 Active cyclobenzaprine (Flexeril) 10 MG tablet take 1 tablet by mouth three times a day as needed for muscle spasm Active Ketotifen Fumarate 0.035 % solution Administer 1 drop into affected eye(s) in the morning and 1 drop in the evening. 10 mL 2 Active Fluticasone Furoate-Vilantero l (Breo Ellipta) 100-25 MCG/ACT aerosol powderIndications :Moderate persistent asthma, unspecified whether complicated Inhale 1 puff if needed in the morning and at bedtime (may increase for 1 week,). 1 each Active Dextromethorphan HBr (Robitussin Lingering CoughGels) 15 MG capsuleIndication s:Mild persistent asthma, unspecified whether complicated Take 1 capsule by mouth if needed in the morning and at bedtime (cough/phlegm). 28 capsule Active albuterol (2.5 MG/3ML) 0.083% nebulizer solutionIndicatio ns:Cough in adult patient INHALE 1 AMPULE USING A NEBULIZER EVERY 4 HOURS NEEDED FOR WHEEZING OR SHORTNESS OF BREATH 90 mL 11 Active HealthyLax 17 g packetIndications :Constipation, unspecified constipation type DISSOLVE 1 PACKET IN 8 OUNCES OF WATER, JUICE, COFFEE OR TEA AND DRINK BY MOUTH EVERY DAY NEEDED FOR CONSTIPATION 30 packet 6 Active cetirizine (ZyrTEC) 10 MG tablet Take 1 tablet (10 mg) by mouth Once per day. 30 tablet 11 025 2025 Active simethicone (Mylicon) 80 MG chewable tabletIndications :Biliary colic CHEW and SWALLOW 1 TABLET BY MOUTH EVERY 8 HOURS NEEDED FOR GAS 90 tablet 3 025 Active fluticasone (Flonase) 50 MCG/ACT nasal spray INSTILL 2 SPRAYS IN EACH NOSTRIL ONCE DAILY IN THE MORNING 16 g 3 Active lidocaine (Lidoderm) 5 % patchIndications: Acute left-sided low back pain, unspecified whether sciatica present Apply 1 patch topically Once per day. Remove & discard patch within 12 hours or as directed by MD. 30 patch 1 Active losartan (Cozaar) 25 MG tablet Take 0.5 tablets (12.5 mg) by mouth Once per day. 15 tablet 3 025 2025 Active lactulose (Chronulac) 10 GM/15ML solution TAKE 15 ML BY MOUTH EVERY DAY NEEDED FOR CONSTIPATION 022 2024 Discontinued(T herapy completed) HealthyLax 17 g packetIndications :Constipation, unspecified constipation type Mix 1 packet in 8 ounces of water, juice, coffee or tea and drink once a day NEEDED FOR CONSTIPATION 30 packet 6 024 2024 Discontinued lisinopril 5 MG tablet TAKE 1 TABLET BY MOUTH EVERY DAY 90 tablet 3 024 2024 Discontinued fluticasone (Flonase) 50 MCG/ACT nasal spray INSTILL 2 SPRAYS IN EACH NOSTRIL ONCE DAILY IN THE MORNING 16 g 3 025 2024 Discontinued simethicone (Mylicon) 80 MG chewable tabletIndications :Biliary colic CHEW AND SWALLOW 1 TABLET BY MOUTH EVERY 8 HOURS NEEDED FOR GAS 90 tablet 3 025 2024 Discontinued metFORMIN XR (Glucophage-XR) 500 MG 24 hr tablet TAKE 1 TABLET BY MOUTH ONCE DAILY WITH EVENING MEAL DO NOT BREAK, CRUSH, DISSOLVE OR CHEW 025 2024 Discontinued albuterol (2.5 MG/3ML) 0.083% nebulizer solutionIndicatio ns:Cough in adult patient Take 3 mL (2.5 mg) by nebulization every 4 (four) hours if needed for wheezing. 90 mL 11 025 2024 Discontinued loratadine (Claritin) 10 MG tabletIndications :Mild persistent asthma without complication TAKE 1 TABLET BY MOUTH EVERY DAY 90 tablet 3 025 2024 Discontinued fluconazole (Diflucan) 100 MG tablet Take 2 tablets PO x 1d then 1 tablet PO/d thereafter x 14d 15 tablet 025 2024 Discontinued(T herapy completed) predniSONE (Deltasone) 20 MG tabletIndications :Bronchitis Take 2 tablets (40 mg) by mouth Once per day for 5 days. 10 tablet 025 2024 Discontinued azithromycin (Zithromax) 250 MG tabletIndications :Bronchitis Take 1 tablet (250 mg) by mouth Once per day for 5 days. Take two tablets the first day, then one tablet daily after that 6 tablet 025 2024 Discontinued azithromycin (Zithromax) 250 MG tabletIndications :Bronchitis Take 1 tablet (250 mg) by mouth Once per day for 5 days. Take two tablets the first day, then one tablet daily after that 6 tablet 025 2024 predniSONE (Deltasone) 20 MG tabletIndications :Bronchitis Take 2 tablets (40 mg) by mouth Once per day for 5 days. 10 tablet 025 2024 Active Problems Problem Noted Date Diagnosed Date Acute left-sided low back pain 07/13/2025 Assessment & Plan (07/13/2025 2:52 PM EDT): Apply heat on affected area Continue to take pain medications as needed as prescribed I added today lidocaine patch to apply 1 daily as needed I offered PT referral patient declines at this moment Sore throat 05/21/2025 Assessment & Plan (05/21/2025 5:16 PM EDT): Pt primary concerns is throat culture, requesting repeat, g/c chl sent Moderate persistent asthma 05/21/2025 Assessment & Plan (05/21/2025 5:17 PM EDT): Reassuring resp exam, may increase preventative inhaler prn for up to 1 week (no more than 2 puffs) continue with allergy management, Return to clinic if symptoms worsen or fail to improve Oropharyngeal candidiasis 05/17/2025 Assessment & Plan (05/17/2025 4:18 PM EDT): It is likely related to not rinsing mouth after inhaled steroid application. Rx fluconazole x 14 days GC/chlamydia testing of pharyngeal area and follow-up results COPD with acute exacerbation 05/17/2025 Assessment & Plan (06/26/2025 11:15 AM EDT): -Acute exacerbation of COPD -Start prednisone 40mg daily x 5 days -Continue maintenance inhaler. Advised to rinse mouth after every use. -Albuterol PRN via nebulizer and pump -Reviewed med safety and SE - Follow up with any worsening or failure Assessment & Plan (05/17/2025 4:15 PM EDT): Advised to use albuterol every 4 hours x 2 days then every 6 hours as needed x 10 days Continue using Breo twice daily daily, should rinse her mouth after application Screening examination for STI 05/17/2025 Assessment & Plan (05/17/2025 4:18 PM EDT): Patient high risk for STI due to patient's partner being a drug user. Most recent STI testing is negative and she has not been sexually active since. Discussed about STI prevention including condom use and PrEP (both oral and injectable). Patient agreed to be STI tested, advised to follow-up with PCP or CRS/STI clinic if she is interested on PrEP. Precordial pain 11/19/2024 Assessment & Plan (11/19/2024 [...] 1:16 PM EDT): Recheck in 3 months Urinary incontinence 05/06/2023 Assessment & Plan (05/06/2023 [...] 2:04 PM (H90.3) Benign breast disease 02/01/2023 History of cholecystectomy 11/17/2020 Fibromyalgia 12/25/2019 Biliary colic 12/16/2019 Cholelithiasis without obstruction 09/25/2019 Cervical spondylosis 08/28/2018 Scoliosis 08/28/2018 Degeneration of lumbar intervertebral disc 08/07 Assessment & Plan (03/16/2024 1:14 PM EDT): Trial Nortriptyline 10mg nightly for back pain, and fibromyalgia Can increase at next visit Arthritis of right knee 06/09/2018 Assessment & Plan (08/12/2024 11:39 AM EDT): Continue followup with [facility] [place] for viscosupplementation Assessment & Plan (02/13/2023 [...] diabetic range Aguirre tart Metformin 500mg XR marinabenjamin Recheck in 3 months Lifestyle modifications and avoidance of simple sugars still advised Assessment & Plan (03/16/2024 1:14 PM EDT): Diet controlled Will start going to [facility] with her daughter as well [...] improve, advise to call her GI doctor Vaginitis 08/01/2023 06/26/2025 Assessment & Plan (08/01/2023 10:44 AM EDT): [...] in 3 weeks -has apt schedule already Bronchitis 06/07/2023 08/12/2024 Assessment & Plan (06/07/2023 [...] vitamin C, zinc, motrin for body aches Mild persistent asthma 12/05/202106/26 Assessment & Plan (05/22/2025 9:48 AM EDT): Pt insightful about her illness, reports increased sputum production despite utilization of all medications as indicated. At this time pt feels she would benefit from a low dose steroid, 20 mg rx x 5 days. Assessment & Plan (10/28/2024 11:33 AM EST): Stable currently, pt aware of s/s requiring urgent evaluation, Assessment & Plan (08/12/2024 11:39 AM EDT): CTAB currently Continue Breo and FLORENTIN Assessment & Plan (03/16/2024 1:15 PM EDT): CTAB currently Assessment & Plan (05/06/2023 8:08 AM EDT): Cont Breo, FLORENTIN Deep diaphragmatic breathing prn Obstructive sleep apnea syndrome 12/04/2021 04/14/2025 Encounters Date Type Department Care Team Description 07/19/2025 1:40 PM EDT Office Visit [facility] [address] [place] [phone] Chronic cough (Primary Dx); Viral URI 07/19/2025 Travel 07/13/2025 1:40 PM EDT Office Visit [facility] [address] [place] [address] [phone] Lida Francisco MD Lower abdominal pain; Acute left-sided low back pain, unspecified whether sciatica present 07/13/2025 Travel 07/11/2025 Refill [facility] [address] [place] [address] [phone] Brooklyn Jalloh MD Biliary colic 07/06/2025 2:40 PM EDT Office Visit [facility] [address] [place] [phone] Zhane Gandhi MD Subacute cough (Primary Dx); Postnasal drip 07/06/2025 Travel 06/29/2025 Refill [facility] [address] [place] [phone] Brooklyn Jalloh MD Constipation, unspecified constipation type 06/26/2025 10:00 AM EDT Office Visit [facility] [address] [place] [phone] Brooklyn Jalloh MD Bronchitis (Primary Dx); Sore throat; COPD with acute exacerbation ([facility]) 06/26/2025 Travel 06/21/2025 Refill [facility] [address] [place] [address] [phone] Raffi Mendoza MD Cough in adult patient 05/22/2025 9:20 AM EDT Office Visit [facility] [address] [place] [address] [phone] Shayy Ashraf NP Mild persistent asthma, unspecified whether complicated (Primary Dx) 05/22/2025 Travel 05/21/2025 4:00 PM EDT Office Visit [facility] [address] [place] [address] [phone] Shayy Ashraf NP Sore throat (Primary Dx); Moderate persistent asthma, unspecified whether complicated 05/21/2025 Telephone [facility] [address] [place] [phone] Brooklyn Jalloh MD 05/21/2025 Telephone [facility] [address] [place] [phone] Brooklyn Jalloh MD Results 05/18/2025 Refill [facility] [address] [place] [address] [phone] Brooklyn Jalloh MD 05/17/2025 3:00 PM EDT Office Visit [facility] [address] [place] [address] [phone] Ludy Knutson MD Oropharyngeal candidiasis (Primary Dx); COPD with acute exacerbation (CMS/HCC); Screening examination for STI; Pharyngitis, unspecified etiology 05/17/2025 Orders Only [facility] [address] [place] [address] [phone] Ludy Knutson MD 05/17/2025 Travel 05/10/2025 Travel 05/07/2025 11:15 AM EDT Office Visit [address] [address] Brooklyn Jalloh MD Primary hypertension (Primary Dx); Prediabetes; Generalized anxiety disorder; Depression, recurrent (CMS/HCC); Calcific tendonitis of right shoulder; Fibromyalgia; Elevated alkaline phosphatase level 05/07/2025 10:00 AM EDT Office Visit [facility] [address] [place] [phone] Javad Neville DDS 05/07/2025 Travel 05/06/[address] [address] Brooklyn Jalloh MD chart prep 05/01/2025 Refill [facility] [address] [place] [phone] Brooklyn Jalloh MD 04/30/2025 2:00 PM EDT Office Visit [facility] [address] [place] [address] Javad Neville DDS 04/28/2025 Patient Outreach [facility] [address] [place] [address] Brooklyn Jalloh MD Pre-visit Planning (SDOH screening completed on 01/26/2025) 04/26/2025 10:15 AM EDT Office Visit [facility] [address] [place] [phone] Keily Foreman CNM Atrophic vaginitis (Primary Dx) 04/26/2025 Travel 04/23/[address] [phone] Keily Foreman CNM chart prep 04/22/[address] [address] Brooklyn Jalloh MD from Last 3 Months Immunizations Immunization Administration Dates Next Due Hep A, Adult [...] oz) 07/19/2025 1:38 P M EDT Height 167.6 cm (5' 6 ) 07/13/2025 1:24 PM EDT Body Mass Index 23.31 07/13/2025 1:24 PM EDT Plan of Treatment Upcoming Encounters Date Type Department Care Team (Late st Contact Info) Description 08/13/2025 11:15 AM EDT Office Visit [facility] [address] [place] [address] Brooklyn Jalloh MD [address] [place] [address] Health Maintenance Due Date Last Done Comments CT Colonography 1970 FIT DNA/Cologuard 1970 FIT 1970 FOBT 1970 Sigmoidoscopy 1970 Disability Screening 1970 Pneumococcal Vaccine: 50+ Years (1 of 2 - PCV) 02/25/1987 COVID-19 Vaccine ( season) 2024 11/07/2021, 03/29/2021, 03/01/2021 Influenza Vaccine (#1) 2025 , 08/23/2023, 09/17/2022, Additional history exists Mammogram 08/18/2025 08/18/2024, 07/27, 08/08/2022, Additional history exists Dental Oral Exam 10/16/2025 04/14/2025, 08/24/2024 Dental Prophylaxis 10/16/2025 04/14/2025, 0 08/24/2024, 10/01/2023, Additional history exists Depression Monitoring 11/06/2025 05/07/2025, 025 SDOH Screening 01/26/2026 01/26/2025 Alcohol/Substance Use Screening 02/04/2026 02/04/2025 Diabetes: Hemoglobin A1C 05/07/2026 025, 02/02/2025, 08/11/2024, Additional history exists Dental X-Ray: Bitewings 05/08/2026 05/07/20 25, 08/24/2024, 10/01/2023 Tobacco Screening 07/13/2026 07/13/2025 Dental X-Ray: Full Mouth 08/25/2027 08/24/2024, 04/26 Lipid Panel 10/11/2027 10/11/2022, 01/25, 08/09/2020 DTaP/Tdap/Td Vaccines (2 - Td or Tdap) 12/23/2027 12/23/2017 Colonoscopy 05/13/2028 05/13/2023, 04/25, 03/17/2018 Colorectal Cancer Screening 05/13/2028 Cervical Cancer Screening 03/30/2030 HPV/Cotest 03/30/2030 03/30/2025, 04/23/2018 Pap Smear 03/30/2030 03/30/2025 RSV Patients and Patients Aged 60 years or older (1 - 1-dose 75+ series) 02/25/2043 Hepatitis B Vaccines Completed 12/18/2018, 02/17/2018, 12/23/2017 Zoster Vaccines Completed 05/31/2022, 03/30/2022 Hepatitis A Vaccines Aged Out 08/23/2023 No long er eligible based on patient's age to complete this topic HIV Screening Completed 04/02/2025, 07/27, 10/02/2022 Hepatitis C Screening Completed 04/02/2025 , 08/18/2024, 10/02/2022, Additional history exists HIB Vaccines Aged Out [...] Routine 07/19/2025 1:29 PM EDT Chronic cough CULTURE, URINE, ROUTINE Routine 07/13/2025 1:40 PM EDT Lower abdominal pain POCT URINALYSIS DIPSTICK Routine 07/13/2025 1:30 PM EDT Lower abdominal pain POCT COVID-19 AG CANO ID NOW Routine 06/26/2025 10:41 AM EDT Sore throat POCT INFLUENZA A (ID NOW RAPID MOLECULAR) Routine 06/26/2025 10:40 AM EDT Sore throat POCT INFLUENZA B (ID NOW RAPID MOLECULAR) Routine 06/26/2025 10:40 AM EDT Sore throat POC CANO ID NOW STREP A Routine 06/26/2025 10:26 AM EDT Sore throat CHLAMYDIA/N. GONORRHOEAE RNA, TMA, THROAT Routine 05/21/2025 3:58 PM EDT Sore throat CHLAMYDIA/N. GONORRHOEAE RNA, TMA, THROAT Routine 05/17/2025 2:52 PM EDT POCT GLYCATED HEMOGLOBIN, TOTAL Routine 05/07/2025 12:15 PM EDT Prediabetes POCT GLUCOSE Routine 05/07/2025 12:13 PM EDT Prediabetes CASE PRESENTATION, DETAILED AND EXTENSIVE TREATMENT PLANNING Routine 05/07/2025 10:00 AM EDT BITEWING - SINGLE RADIOGRAPHIC IMAGE Routine 05/07/2025 10:00 AM EDT 12 INTRAORAL - PERIAPICAL FIRST RADIOGRAPHIC IMAGE Routine 05/07/2025 10:00 AM EDT LIMITED ORAL EVALUATION - PROBLEM FOCUSED Routine 05/07/2025 10:00 AM EDT 29 INTRAORAL - PERIAPICAL FIRST RADIOGRAPHIC IMAGE Routine 04/30/2025 2:00 PM EDT LIMITED ORAL EVALUATION - PROBLEM FOCUSED Routine 04/30/2025 2:00 PM EDT 9 AZ RESIN-BASED COMPOSITE - 2 SURF, ANTERIOR Routine 04/30/2025 2:00 PM EDT 8 [place] RESIN-BASED COMPOSITE - 2 SURF, ANTERIOR Routine 04/30/2025 2:00 PM EDT PROPHYLAXIS - ADULT Routine 04/14/2025 1 1:00 AM EDT PERIODIC ORAL EVALUATION - ESTABLISHED PATIENT Routine 04/14/2025 11:00 AM EDT HEPATITIS C AB W/REFL TO HCV RNA, QN, PCR Routine 04/02/2025 11:49 AM EDT Contact with and (suspected) exposure to infections with a predominantly sexual mode of transmission HIV 1/2 ANTIGEN/ANTIBODY, FOURTH GENERATION W/RFL Routine 04/02/2025 11:49 AM EDT Contact with and (suspected) exposure to infections with a predominantly sexual mode of transmission PAP SMEAR Routine 03/30/2025 12:07 PM EDT Cervical cancer screening HPV DNA, LOW/HIGH RISK Routine 03/30/2025 12:00 AM EDT INTRAORAL - COMPLETE SERIES OF RADIOGRAPHIC IMAGES Routine 08/24/2024 10:00 AM EDT BI US BREAST LIMITED RIGHT Routine 08/18/2024 Pain of right breast HM COLONOSCOPY Routine 05/13/2023 LIPID PANEL, STANDARD Routine 10/11/2022 8:02 AM EST from Last 3 Months or Most Recently Relevant to Health Maintenance Results * Influenza B (ID NOW Rapid Molecular) (07/19/2025 1:59 PM EDT) Only the most recent of2 resultswithin the time period is included. Influenza B Negative Negative, Indeterminate [facility] Swab 07/19/2025 1:59 PM EDT us Zhane Gandhi MD POINT OF CARE TEST ENTER/EDIT ORDERABLES Final Result Performing Organization Address City/[facility] Co de Phone Number [facility] [address] [place] [phone] * Influenza A (ID NOW Rapid Molecular) (07/19/2025 1:59 PM EDT) Only the most recent of2 resultswithin the time period is included. Pathologist [facility] Influenza A Negative Negative, Indeterminate [facility] Swab 07/19/2025 1:59 PM EDT Zhane Gandhi MD POINT OF CARE TEST ENTER/EDIT ORDERABLES Final Result Performing Organization Address [facility] Co de Phone Number [facility] [address] [place] [phone] * POCT Rapid COVID Ag (07/19/2025 1:59 PM EDT) Rapid COVID Ag Negative [facility] Swab 07/19/2025 1:59 PM EDT us Zhane Gandhi MD POINT OF CARE TEST ENTER/EDIT ORDERABLES Final Result Performing Organization Address [facility] Co de Phone Number [facility] [address] [place] [phone] * XR Chest 2 Views (07/19/2025 1:29 PM EDT) Anatomical Region Laterality Modality Chest Radiographic Zina ging 07/19/2025 1:29 PM EDT Narrative 07/19/2025 2:36 PM EDT [facility] [address] [place] [address] XRay Report Signed Patient: Machelle Wooten MR#: [id number] : 1970 Acct:[id number] Age/Sex: 55 / F ADM Date: 07/19/25 [facility] Attending Dr: Zhane Gandhi MD Ordering Physician: Zhane Gandhi MD Date of Service: 07/19/25 Procedure(s): XR chest 2V Accession Number(s): [id number] cc: Zhane Gandhi MD EXAMINATION: XR CHEST [...] 07/19/25 1433 DD/ 1329 TD/TT: 07/19/25 1400 Documentation Designer: Procedure Note Donotuseinterpreter, Image - 07/19/[address] [id number] XRay Report Signed Patient: Machelle WootenMR#: [id number] : 1970Acct:[id number] Age/Sex: 55 / FADM Date: 07/19/25 Loc: [facility] Attending Dr: Zhane Gandhi MD Ordering Physician: Zhane Gandhi MD Date of Service: 07/19/25 Procedure(s): XR chest 2V Accession Number(s): [id number] cc: Zhane Gandhi MD EXAMINATION: XR CHEST [...] 07/19/25 1433 DD/ 1329 TD/TT: 07/19/25 1400 Documentation Designer: us Zhane Gandhi MD IMG XR PROCEDURES Final Resul t * Culture, Urine, Routine (07/13/2025 1:40 PM EDT) Urine Urine specimen obtained by clean catch procedure / Unknown 07/13/2025 1:40 PM EDT 07/13/2025 4:41 PM EDT Comment:UACC Narrative [facility] - 07/15/2025 8:46 AM EDT Urine Culture Report Result Urine Culture < 10,000 cfu/ml Specimen Source: Urine clean catch us Lida Mackenzie MD LAB MICROBIOLOGY - [facility] ORDERABLES Final Result [facility] [address] [place] [address] [phone] * POCT urinalysis dipstick manually resulted (07/13/2025 1:30 PM EDT) Color, UA Yellow Clarity, UA Clear Glucose, UA Negative Bilirubin, UA Negative Ketones, UA Negative Spec Grav, UA 1.020 Blood, UA Negative Negative, None Detected pH, UA 5.5 Protein, UA Negative Urobilinogen, UA 0.2 Leukocytes, UA Negative Negative, Rare, Trace Nitrite, UA Negative Negative, None Detected QC Media Lot # [id number] Lot# Expiration Date [id number] Urine 07/13/2025 1:30 PM EDT us Lida Mackenzie MD POINT OF CARE TEST EN TER/EDIT ORDERABLES Final Result * POCT Rapid Covid-19 CANO ID NOW (06/26/2025 10:41 AM EDT) Pathologist [facility] Coronavirus Antigen PCR Negative Negative, Indeterminate, None Detected, Invalid, Specimen unsatisfactory for evaluation, Weakly Positive, 2+ QC Media Lot # [id number] Lot# Expiration Date Swab 06/26/2025 10:4 1 AM EDT Brooklyn Jalloh MD POINT OF CARE TEST ENTER/EDIT ORDERABLES Final Result * POCT Rapid Strep A CANO ID NOW (06/26/2025 10:26 AM EDT) [facility] Rapid Strep A Screen Negative Negative, None Detected QC Media Lot # [id number] Lot# Expiration Date Swab 06/26/2025 10:2 6 AM EDT Brooklyn Jalloh MD POINT OF CARE TEST ENTER/EDIT ORDERABLES Final Result * Chlamydia/N. Gonorrhoeae RNA, TMA, Throat (05/21/2025 3:58 PM EDT) Only the most recent of2 resultswithin the time period is included. [facility] C. Trachomatis RNA TMA, Throat NOT DETECTED [facility] N. gonorrhoeae RNA TMA, Throat NOT DETECTED [facility] Comment:REFERENCE RANGE: NOT DETECTEDMethodology: Guest Relations Coordinator Mediated Amplification (TMA) to detect RNA.The analytical performance characteristics of this assayhave been determined by [employer]. The modificationshave not been cleared or approved by the FDA. This assay hasbeen validated pursuant to the CLIA regulations and is usedfor clinical purposes.For additional information, please refer tohttps://education.[employer]/faq/TYR186(This link is being provided for informational/educationalpurposes only.)THIS TEST WAS PERFORMED AT:[employer] [id number] REYNOLD COLEMAN [place] [id number] COMBS MD,PHD,ISRRAEL Swab Structure of anterior portion of neck / Unknown 05/21/2025 3:58 PM EDT 05/21/2025 5:32 PM EDT Result [facility] Shayy Ashraf NP LAB MICROBIOLOGY - GENERAL ORDER [place] Final Result Performing Organization Address City/[facility]/ZIP Co de Phone Number [facility] [address] [place] [address] [phone] * (ABNORMAL) POCT HGB A1C (05/07/2025 12:15 PM EDT) Pathologist [facility] Hemoglobin A1C 6.1(A) 4.0 - 6.0 % QC Media Lot # [id number] Blood 05/07/2025 12:1 5 PM EDT Result [facility] Brooklyn Jalloh MD POINT OF CARE TEST ENTER/EDIT ORDERABLES Final Result * POCT Glucose (05/07/2025 12:13 PM EDT) Pathologist [facility] Glucose Blood, POC 126 60 - 200 mg/dL QC Media Lot # [id number] Lot# Expiration Date [id number] Blood Capillary blood specimen / Unknown 05/07/2025 12:13 PM EDT Result [facility] Brooklyn Jalloh MD POINT OF CARE TEST ENTER/EDIT ORDERABLES Final Result * Hepatitis C Antibody with Reflex to HCV, RNA, Quantitative, Real-Time PCR (04/02/2025 11:49 AM EDT) Pathologist [facility] Hepatitis C Antibody Nonreactive Nonreactive [facility] Comment:Antibodies to HCV no t detected; does not exclude early acuteHCV infection. Blood Venous blood specimen / Unknown 04/02/2025 11:49 AM EDT 04/02/2025 1:17 PM EDT Result [facility] Brooklyn Jalloh MD LAB BLOOD ORDERABLES Final Res ult [facility] [address] [place] [address] [phone] * HIV-1/2 Antigen and Antibodies, Fourth Generation, with Reflexes (04/02/2025 11:49 AM EDT) HIV AB/AG Nonreactive Nonreactive [facility] Comment:HIV-1 p24 Ag and/or HIV-1/HIV-2 Ab not detected.A test result that is nonreactive does not exclude thepossibility of exposure to or infection with HIV-1 and/orHIV-2. Nonreactive results in this assay for individualswith prior exposure to HIV-1 and/or HIV-2 may be due toantigen and antibody levels that are below the limit ofdetection of this assay.The [employer] HIV Ag/Ab Combo assay result andsupplemental assay results should be interpreted inconjunction with the patient's clinical presentation,history and other laboratory results. If the results areinconsistent with clinical evidence, additional testing issuggested to confirm the result. Blood Venous blood specimen / Unknown 04/02/2025 11:49 AM EDT 04/02/2025 1:17 PM EDT us Brooklyn Jalloh MD LAB BLOOD ORDERABLES Final Res ult [facility] [address] [place] [phone] * Pap Smear (03/30/2025 12:07 PM EDT) Swab 03/30/2025 12:0 7 PM EDT 03/31/2025 6:00 AM EDT Narrative [facility] - 04/02/2025 12:35 PM EDT ----- ------- Name: Machelle Wooten Age/Sex: 55/F : 1970 Unit#: [id number] Attend Dr: KEILY FOREMAN CNM Re03/30/25 Status: DEP [facility]ch: ----- ------- SPEC : [id number] RECD: 03/31/25 STATUS: ERNESTO HERNANDEZ NUM: [id number] KRYSTA: 03/30/25-1207 [facility] DR: KEILY FOREMAN ENTERED: 03/31/25 SP TYPE: Pap Smr OTHR DR: ORDERED: Pap Smear Interpretation Satisfactory for evaluation. Negative for intraepithelial lesion or malignancy. No endocervical cells seen. HPV High Risk: Negative HPV Genotyping 16: Negative HPV Genotyping 18: Negative Clinical Information LMP:Unknown date Previous PAP test:2018 Material Received ThinPrep-Cervical ----- ------- Signed (signature on file) YAMILETH Torres ([facility]) 04/02/25 1235 ----- ------- END OF REPORT Keily Foreman [facility] LAB CYTOLOGY ORDERABLES F inal Result Performing Organization Address [facility]/ZIP Co de Phone Number [facility] [address] [place] [address] [phone] * HPV DNA, Low/High Risk (03/30/2025 12:00 AM EDT) HPV High Risk Negative Negative [facility] HPV Genotype 16 Negative Negative [facility] HPV Genotype 18 Negative Negative [facility] Comment:HPV testing performe d at [facility] (CLIA#[id number]), [address] [place] [address].Testing for HPV was performed using the Shahida MOOKIE Nokori0system. The presence of HPV in the female genital tract isassociated with a number of diseases, including cervicalcarcinoma. The HPV DNA high risk pool tests for HPV 31, 33,35, 39, 45, 51, 52, 56, 58, 59, 66 and 68. The testing forHPV 16 and 18 genotypes has also been performed. A positiveresult indicates detection of nucleic acid sequences fromone or more subtypes, whereas a negative result indicatessuch sequences were not detected. 03/30/2025 03/31/2025 6:0 0 AM EDT Keily Susannahketanaurora [facility] LAB BLOOD ORDERABLES Julianne l Result Performing Organization Address [facility]/ZIP Co de Phone Number [facility] [address] [place] [address] [phone] * BI US Breast Limited Right (08/18/2024) Anatomical Region Laterality Modality Breast Right Ultrasound Lilian Holcomb BUSINESS SERVICES SALES AGENT IMG US PROCEDURES Final Result * (ABNORMAL) [...] [facility] Comment: Reference range: <100 Desirable range <100 mg/dL for primary prevention; <70 mg/dL for patients with CHD or diabetic patients with > or = 2 CHD risk factors. LDL-C is now calculated using the Mitch-Liu calculation, which is a validated novel method providing better accuracy than the Friedewald equation in the estimation of LDL-C. Mitch SS et al. ARACELI. 2013;310(19): 2587-3941 (http://education.[employer].Dropbox/faq/MUR812) Non-HDL Cholesterol 117 <130 mg/dL (calc) [facility] Comment: For patients with diabetes plus 1 major ASCVD risk factor, treating to a non-HDL-C goal of <100 mg/dL (LDL-C of <70 mg/dL) is considered a therapeutic option. Triglycerides 276(H) <150 mg/dL [facility] Comment: If a non-fasting specimen was collected, consider repeat triglyceride testing on a fasting specimen if clinically indicated. Brisa et al. J. of Clin. Lipidol. 2015;9:129-169. 10/11/2022 8:02 AM EST Brooklyn Jalloh MD LAB BLOOD ORDERABLES Final Res ult [facility] from Last 3 Months or Most Recently Relevant to Health Maintenance Insurance [facility] ONE CARE < 65 Care Teams Ground Crew Linesman Relationship Specialty Start Date End Date Brooklyn Jalloh MD [address] [place] [address] PCP - General Family Medicine 07/17/21
--- OUTSIDE RECORDS SUMMARY | 2025-07-19 15:29 | XMS_ITS | Encounter Summary ---
Author Organization [employer] Address 75 [facility]t [place] [address] Care Team Providers Care Systems Auditor Name Role Phone Brooklyn Jalloh MD Primary Care Provider [phone] Encounter Details Date Type Department Care Team (Late st Contact Info) Description 12/22/2023 Orders Only [facility] MEDICINE [address] [place], [place] [phone] Brooklyn Jalloh MD [address] [place], [place] [phone] Bronchitis (Primary Dx) Social History Tobacco Use [...] Description 08/13/2025 11:15 AM EDT Office Visit [facility] MED[facility]INE [address] [place] [address] Brooklyn Jalloh MD [address] [place] [address] documented as of this encounter Procedures Procedure Name Priority Date/Time Associated Diagnosis Comments CBC WITH AUTO DIFFERENTIAL Routine 12/25/2023 12:28 PM EST Bronchitis documented in this encounter Results * (ABNORMAL) CBC auto differential (12/25/2023 12:28 PM EST) White Blood Count 15.4(H) 4.8 - 10.8 X10*3/uL [facility] Red Blood Count 5.11 4.20 - 5.50 X10*6/uL [facility] Hemoglobin 13.7 12.0 - 16.0 g/dl [facility] Hematocrit 42.6 37.0 - 47.0 % [facility] Mean Corpuscular Volume 83.4 80.0 - 98.0 fL [facility] Mean Corpuscular Hemoglobin 26.8(L) 27.0 - 33.0 pg [facility] Mean Corpuscular HGB Conc 32.2 31.0 - 35.0 g/dl [facility] Red Cell Distribution Width 13.9 11.0 - 16.0 % [facility] Platelet Count 442(H) 160 - 400 X10*3/uL [facility] Mean Platelet Volume 10.1 9.4 - 12.3 fL [facility] Neutrophils Percent Auto 71.8 45 - 73 % [facility] Imm Gran Pct Auto 0.5(H) 0.0 - 0.4 % [facility] Lymphocytes Percent Auto 20.8 20 - 40 % [facility] Monocytes Percent Auto 6.7 2 - 11 % [facility] Eosinophils Percent Auto 0.1 0 - 4 % [facility] Basophils Percent Auto 0.1 0 - 2 % [facility] NRBC Pct Auto 0.0 0.0 - 0.2 /100WBC [facility] Neutrophils Absolute Auto 11.0(H) 2.0 - 8.3 x10*3/uL [facility] Imm Gran Abs Auto 0.08(H) 0.00 - 0.03 X10*3/uL [facility] Lymphocytes Absolute Auto 3.2 1.2 - 4.9 X10*3/uL [facility] Monocytes Absolute Auto 1.0 0.1 - 1.2 X10*3/uL [facility] Eosinophils Absolute Auto 0.0 0.0 - 0.4 X10*3/uL [facility] Basophils Absolute Auto 0.0 0.0 - 0.2 X10*3/uL [facility] NRBC Abs Auto 0.000 0.0 - 0.012 X10*3/uL [facility] Blood Venous blood specimen / Unknown 12/25/2023 12:28 PM EST 12/25/2023 1:09 PM EST us Brooklyn Jalloh MD LAB BLOOD ORDERABLES Final Res ult [facility] [address] [place] [phone] [phone] documented in this encounter Visit Diagnoses Diagnosis Bronchitis- Primary Bronchitis, not specified as acute or chronic documented in this encounter Additional Health Concerns Assessment Noted Time PHQ-9 Depression Total Score: 6 02/05/20 23 11:27 AM EDT documented as of this encounter Care Teams Systems Auditor Relationship Specialty Start Date End Date Brooklyn Jalloh MD [address] [place] [address] PCP - General Family Medicine 07/17/21 documented as of this encounter
--- OUTSIDE RECORDS SUMMARY | 2025-07-19 15:29 | XMS_ITS | Clinical Summary ---
Author Organization 175 [facility] Address [address] [place] [address] Phone Care Team Providers Care Green Building Energy Engineer Name Role Phone Brooklyn Jalloh MD Primary Care Provider [phone] Allergies Active Allergy Reactions Criticality Noted Date [...] AM EDT Office Visit Orthopedic Surgery - [place] [address] [address] Scot Durant DPM [address] [address] Health Maintenance Due Date Last Done Comments [...] * Annual BMP Blood Test (08/31/2024) Pathologist [facility] Annual BMP Blood Test abstracted [facility] HEALTH MAINTENANCE Final Result * HIV Screening (08/18/2024) [facility] HIV Screening abstracted [facility] HEALTH MAINTENANCE Final Result * Hepatitis C Screening (08/18/2024) [facility] Hepatitis C Screening abstracted [facility] HEALTH MAINTENANCE Final Result * Lipid panel (02/21/2021) [facility] LDL/HDL Ratio 0 Comment:abstracted, no inter pretation Triglycerides 0 mg/dL Comment:abstracted, no inter pretation Cholesterol 0 mg/dL Comment:abstracted, no inter pretation HDL 0 mg/dL Comment:abstracted, no inter pretation LDL Cholesterol 0 mg/dL Comment:abstracted, no inter pretation Blood Venous blood specimen / Unknown Result [facility] Provider LAB BLOOD ORDERABLES Julianne l Result from Last 3 Months or Most Recently Relevant to Health Maintenance Insurance [facility] MEDIC[facility] Member Subscriber Plan / Payer (Ef fective 2018-Present) Name:MACHELLE CUNNINGHAM Relation to Subscriber:Self Name:Machelle Cunningham Payer ID:[id number] Group ID:[id number] Type:Not on file Address: [address] [place] [address] Care Teams Green Building Energy Engineer Relationship Specialty Start Date End Date Brooklyn Jalloh MD [address] [place] [address] PCP - General 09/12/22
--- OUTSIDE RECORDS SUMMARY | 2025-07-19 15:29 | XMS_ITS | Encounter Summary ---
Author Organization [employer] Address 75 [facility] 7t [place] [address] Care Team Providers Care Tail Edger Name Role Phone Brooklyn Jalloh MD Primary Care Provider [phone] Encounter Details Date Type Department Care Team ([facility] Contact Info) Description 03/07/2023 Orders Only [facility] MEDICINE [address] [place] [address] [phone] Brooklyn Jalloh MD [address] [place] [address] [phone] Rash of face (Primary Dx) Social History [...] Upcoming Encounters Date Type Department Care Team ([facility] Contact Info) Description 08/13/2025 11:15 AM EDT Office Visit [facility] MEDICINE [address] [place] [address] [phone] Brooklyn Jalloh MD [address] [place] [address] documented as of this encounter Visit Diagnoses Diagnosis Rash of face- Primary documented in this encounter Additional Health Concerns Assessment Noted Time PHQ-9 Depression Total Score: 6 02/05/20 23 11:27 AM EDT documented as of this encounter Care Teams Tail Edger Relationship Specialty Start Date End Date Brooklyn Jalloh MD [address] [place] [address] PCP - General Family Medicine 07/17/21 documented as of this encounter
--- OUTSIDE RECORDS SUMMARY | 2025-07-19 15:29 | XMS_ITS | Encounter Summary ---
Author Organization [employer] Address 75 [facility] [address]t h [address] [place] [phone] Care Team Providers Care First Calender Worker Name Role Phone Brooklyn Jalloh MD Primary Care Provider [phone] Reason for Visit * Reason Onset Date Comments referral 11/29/2023 Encounter Details Date Type Department Care Team ([facility] st Contact Info) Description 11/29/2023 Telephone [facility] MEDICINE [address] [place], [place] [phone] Brooklyn Jalloh MD [address] [place] [address] referral Social History Tobacco Use Types Packs/Day [...] * Telephone Encounter - Giuliana Aviles - 11/29/2023 1:47 PM EST Tc from pt requesting a Referral for [facility] Gastrology with Dr. Aldrich @ [address] [place] [address] to be further Evaluated for her Diagnoses @ the [facility] of gastroenteritis. Please contact pt @ [phone] documented in this encounter Plan of Treatment Upcoming Encounters Date Type Department Care Team ([facility] st Contact Info) Description 08/13/2025 11:15 AM EDT Office Visit [facility] [address] [place] [address] Brooklyn Jalloh MD [address] [place] [address] documented as of this encounter Visit Diagnoses Not on filedocumented in this encounter Additional Health Concerns Assessment Noted Time PHQ-9 Depression Total Score: 6 02/05/20 23 11:27 AM EDT documented as of this encounter Care Teams First Calender Worker Relationship Specialty Start Date End Date Brooklyn Jalloh MD [address] [place] [address] PCP - General Family Medicine 07/17/21 documented as of this encounter
--- OUTSIDE RECORDS SUMMARY | 2025-07-19 15:29 | XMS_ITS | Encounter Summary ---
Author Organization [employer] [facility] Address 75 [facility] 7t [place] [address] Care Team Providers Care Paint Prep Technician Name Role Phone Brooklyn Jalloh MD Primary Care Provider [phone] Encounter Details Date Type Department Care Team (Latest Contact Info) Description 05/12/2019 Abstract [facility] CONVERSIONS Dental, Provider, DDS Social History Tobacco [...] Description 08/13/2025 11:15 AM EDT Office Visit [facility] MEDICINE [address] [place] [address] Brooklyn Jalloh MD [address] [place] [address] documented as of this encounter Visit Diagnoses Not on filedocumented in this encounter Care Teams Paint Prep Technician Relationship Specialty Start Date End Date Brooklyn Jalloh MD [address] [place] [address] PCP - General Family Medicine 07/17/21 documented as of this encounter
--- OUTSIDE RECORDS SUMMARY | 2025-07-19 15:29 | XMS_ITS | Encounter Summary ---
Author Organization [employer] Address 75 [facility] 7t [place] [address] Care Team Providers Care Hydroelectric Machinery Mechanic Helper Name Role Phone Brooklyn Jalloh MD Primary Care Provider [phone] Reason for Visit * Reason Onset Date Comments Referral 05/10/2023 Encounter Details Date Type Department Care Team ([facility] st Contact Info) Description 05/10/2023 Telephone [facility] MEDICINE [address] [place], [place] [phone] Brooklyn Jalloh MD [address] [place] [address] Referral Social History Tobacco Use Types Packs/Day [...] encounter Miscellaneous Notes * Telephone Encounter - Josémaura Fongsurekha Aviles - 05/10/2023 10:44 AM EDT Tc from pt requesting a call from a nurse in regards to her podiatry visit. Patient states that will like to be sent to another podiatry due to not feeling any change in regards to her toenails. Please contact pt at [phone] Bahamian Speaker documented in this encounter Plan of Treatment Upcoming Encounters Date Type Department Care Team (Late st Contact Info) Description 08/13/2025 11:15 AM EDT Office Visit [facility] MEDICINE [address] [place] [address] Brooklyn Jalloh MD [address] [place] [address] documented as of this encounter Visit Diagnoses Not on filedocumented in this encounter Additional Health Concerns Assessment Noted Time PHQ-9 Depression Total Score: 6 02/05/20 23 11:27 AM EDT documented as of this encounter Care Teams Hydroelectric Machinery Mechanic Helper Relationship Specialty Start Date End Date Brooklyn Jalloh MD [address] [place] [address] PCP - General Family Medicine 07/17/21 documented as of this encounter
--- OUTSIDE RECORDS SUMMARY | 2025-07-19 15:29 | XMS_ITS | Encounter Summary ---
Author Organization [employer] Address 75 [facility] 7t [place] [address] Care Team Providers Care Cash Applications Coordinator Name Role Phone Brooklyn Jalloh MD Primary Care Provider Reason for Visit * Reason Onset Date Comments Medication Question 08/20/2024 Results 08/20/2024 Encounter Details Date Type Department Care Team ([facility] st Contact Info) Description 08/20/2024 Telephone [facility] MEDICINE [address] [place] [address] Brooklyn Jallho MD [address] [place], [place] [phone] Medication Question; Results Social History Tobacco Use [...] 2:40 PM EDT TC placed to pt [phone] via [employer] in regards to below message. RN informed [...] - 08/20/2024 3:47 PM EDT Noted. Per [employer], shoulder Xray performed on 08/11/24 however interpretation [...] BW. Pt verbalized understanding. Pt also requesting prilnne-ufrgbbrkyahgb-jbpobvxn medication be Rx'd again for her migraines. Pt reports she last p/u medication on 02/18/24 for a 2 month supply. Pt reports the providers name on the bottle is Georgette Tellez . RN unable to find active RX on medication list however ap annie discontinued RX on medlist from 02/26/23. Pt advised RN will send message to PCP to review if PCP can RX medication. Pt verbalized understanding. Pt to f/u PRN. * Telephone Encounter - Delta Kirt - 08/20/2024 10:06 AM EDT TC from pt requesting call back regarding Results. Type of results: Xray Date when done: 08/10/24 Facility: Walk-In - Type of results: Labs Date when done: 08/18/24 Facility: [facility] Labs Pt is also requesting Eletriptan medication for migraines but mortgage underwriter did not see medication on med list. Please contact pt at [phone]. (Greek Speaker) documented in this encounter Plan of Treatment Upcoming Encounters Date Type Department Care Team (Late st Contact Info) Description 08/13/2025 11:15 AM EDT Office Visit [facility] MEDICINE [address] [place] [address] Brooklyn Jalloh MD [address] [place] [address] documented as of this encounter Visit Diagnoses Not on filedocumented in this encounter Additional Health Concerns Assessment Noted Time PHQ-9 Depression Total Score: 5 03/16/20 24 11:45 AM EDT documented as of this encounter Care Teams Cash Applications Coordinator Relationship Specialty Start Date End Date Brooklyn Jalloh MD [address] [place] [address] PCP - General Family Medicine 07/17/21 documented as of this encounter
--- OUTSIDE RECORDS SUMMARY | 2025-07-19 15:29 | XMS_ITS | Encounter Summary ---
Author Organization [employer] Address 75 [facility] 7t [place] [address] Care Team Providers Care Library Page Name Role Phone Brooklyn Jalloh MD Primary Care Provider [phone] Encounter Details Date Type Department Care Team (Late st Contact Info) Description 01/28/2023 Orders Only [facility] MEDICINE [address] [place] [address] Sarika Jenkins CNM [address] [place] [address] Candidiasis of vulva and vagina (Primary Dx) [...] Description 08/13/2025 11:15 AM EDT Office Visit [facility] MEDICINE [address] [place] [address] Brooklyn Jalloh MD [address] [place] [address] documented as of this encounter Visit Diagnoses Diagnosis Candidiasis of vulva and vagina- Primary documented in this encounter Care Teams Library Page Relationship Specialty Start Date End Date Brooklyn Jalloh MD [address] [place] [phone] PCP - General Family Medicine 07/17/21 documented as of this encounter
--- OUTSIDE RECORDS SUMMARY | 2025-07-19 15:29 | XMS_ITS | Encounter Summary ---
Author Organization [facility] [facility] Address 75 [facility] 7t [place] [address] Care Team Providers Care Solution Mixer Name Role Phone Brooklyn Jalloh MD Primary Care Provider [phone] Encounter Details Date Type Department Care Team (Latest Contact Info) Description 04/06/2021 Abstract [facility] CONVERSIONS Dental, Provider, DDS Social History [...] Description 08/13/2025 11:15 AM EDT Office Visit [facility] MEDICINE [address] [place] [address] Brooklyn Jalloh MD [address] [place] [address] documented as of this encounter Visit Diagnoses Not on filedocumented in this encounter Care Teams Solution Mixer Relationship Specialty Start Date End Date Brooklyn Jalloh MD [address] [place] [address] PCP - General Family Medicine 07/17/21 documented as of this encounter
--- OUTSIDE RECORDS SUMMARY | 2025-07-19 15:29 | XMS_ITS | Encounter Summary ---
Author Organization [employer] Address 75 [facility] 7t [place] [address] Care Team Providers Care Grey Tender Name Role Phone Brooklyn Jalloh MD Primary Care Provider [phone] Reason for Visit * Reason Comments Med Refill Encounter Details Date Type Department Care Team ([facility] Contact Info) Description 07/29/2023 Refill [facility]S [address] [place], [place] [phone] Brooklyn Jalloh MD [address] [place] [address] [phone] Social History Tobacco Use Types Packs/Day Years [...] Department Care Team (Late Contact Info) Description 08/13/2025 11:15 AM EDT Office Visit [facility] MEDICINE [address] [place] [address] [phone] Brooklyn Jalloh MD [address] [place] [address] [phone] documented as of this encounter Visit Diagnoses Not on filedocumented in this encounter Additional Health Concerns Assessment Noted Time PHQ-9 Depression Total Score: 6 02/05/20 23 11:27 AM EDT documented as of this encounter Care Teams Grey Tender Relationship Specialty Start Date End Date Brooklyn Jalloh MD [address] [place] [address] PCP - General Family Medicine 07/17/21 documented as of this encounter
--- OUTSIDE RECORDS SUMMARY | 2025-07-19 15:29 | XMS_ITS | Encounter Summary ---
Author Organization [employer] Address 75 [facility] 7t [place] [address] Care Team Providers Care Smog Technician Name Role Phone Brooklyn Jalloh MD Primary Care Provider [phone] Encounter Details Date Type Department Care Team ([facility] st Contact Info) Description 05/21/2025 Telephone [facility] MEDICINE [address] [place], [place] [phone] Brooklyn Jalloh MD [address] [place] [address] Social History Tobacco Use Types Packs/Day Years [...] Description 08/13/2025 11:15 AM EDT Office Visit [facility] [address] [place] [address] Brooklyn Jalloh MD [address] [place] [address] documented as of this encounter Visit Diagnoses Not on filedocumented in this encounter Additional Health Concerns Assessment Noted Time PHQ-9 Depression Total Score: 14 025 12:17 PM EDT documented as of this encounter Care Teams Smog Technician Relationship Specialty Start Date End Date Brooklyn Jalloh MD [address] [place] [address] PCP - General Family Medicine 07/17/21 documented as of this encounter
--- OUTSIDE RECORDS SUMMARY | 2025-07-19 15:29 | XMS_ITS | Encounter Summary ---
Author Organization [employer] Address [address] [facility] [address] 7t [place] [address] Care Team Providers Care Refrigeration Unit Repairer Name Role Phone Brooklyn Jalloh MD Primary Care Provider [phone] Encounter Details Date Type Department Care Team (Late st Contact Info) Description 08/25/2024 Orders Only [facility] MEDICINE [address] [place] [address] Provider, MD Dipak Social History Tobacco Use Types Packs/Day Years [...] Description 08/13/2025 11:15 AM EDT Office Visit [facility] MED[facility]INE [address] [place] [address] Brooklyn Jalloh MD [address] [place], [place] [phone] documented as of this encounter Procedures Procedure Name Priority Date/Time Associated Diagnosis Comments MAMMOGRAPHY Routine 08/16/2024 11:24 AM EDT documented in this encounter Results * Mammography (08/16/2024 11:24 AM EDT) HM Mammogram BIRADS 2 Normal, Abnormal, BIRADS 1 , BIRADS 2 Anatomical Region Laterality Modality Other Historical Provider HEALTH MAINTENANCE Edited Result - Final documented in this encounter Visit Diagnoses Not on filedocumented in this encounter Additional Health Concerns Assessment Noted Time PHQ-9 Depression Total Score: 5 03/16/20 24 11:45 AM EDT documented as of this encounter Care Teams Refrigeration Unit Repairer Relationship Specialty Start Date End Date Brooklyn Jalloh MD [address] [place] [address] PCP - General Family Medicine 07/17/21 documented as of this encounter
--- OUTSIDE RECORDS SUMMARY | 2025-07-19 15:29 | XMS_ITS | Encounter Summary ---
Author Organization [employer] Address 75 [facility] 7t [place] [address] Care Team Providers Care Waiter And Cashier Name Role Phone Brooklyn Jalloh MD Primary Care Provider [phone] Reason for Visit * Reason Onset Date Comments triage 03/06/2023 Encounter Details Date Type Department Care Team ([facility] st Contact Info) Description 03/06/2023 Telephone [facility] MEDICINE [address] [place], [place] [phone] Brooklyn Jalloh MD [address] [place] [address] triage Social History Tobacco Use Types Packs/Day [...] 03/06/2023 3:39 PM EDT triage call with [facility] [place] [id number] Pt reports itchiness on face. Pt reports this has been for two days and has some red spots now. Pt has had this before in different areas of the body. Pt has seen local area network administrator Cassie and jakob to help but doesn't know the name of the cream. Pt is offered to come to [facility] to be seen by provider but, declines. Pt wants only to have apt with local area network administrator will send to PCP nurse team to [...] now The caller accepted this outcome speaks citizen of [place] documented in this encounter Plan of Treatment Upcoming Encounters Date Type Department Care Team (Late st Contact Info) Description 08/13/2025 11:15 AM EDT Office Visit [facility] MEDICINE [address] [place] [address] Brooklyn Jalloh MD [address] [place] [address] documented as of this encounter Visit Diagnoses Not on filedocumented in this encounter Additional Health Concerns Assessment Noted Time PHQ-9 Depression Total Score: 6 02/05/20 23 11:27 AM EDT documented as of this encounter Care Teams Waiter And Cashier Relationship Specialty Start Date End Date Brooklyn Jalloh MD [address] [place] [address] PCP - General Family Medicine 07/17/21 documented as of this encounter
--- OUTSIDE RECORDS SUMMARY | 2025-07-19 15:29 | XMS_ITS | Encounter Summary ---
Author Organization [employer] Address 75 [facility] 7t [place] [address] Care Team Providers Care Package Yarns Drying Machine Operator Name Role Phone Brooklyn Jalloh MD Primary Care Provider [phone] Reason for Visit * Reason Onset Date Comments Referral 08/05/2024 Encounter Details Date Type Department Care Team ([facility] st Contact Info) Description 08/05/2024 Telephone [facility] MEDICINE [address] [place], [place] [phone] Brooklyn Jalloh MD [address] [place] [address] Referral Social History Tobacco Use Types Packs/Day [...] of the breast to be sent to [facility] Address: [address] [place] [address] Fax- [phone] documented in this encounter Plan of Treatment Upcoming Encounters Date Type Department Care Team (Late st Contact Info) Description 08/13/2025 11:15 AM EDT Office Visit [facility] MED[facility]INE [address] [place] [address] Brooklyn Jalloh MD [address] [place] [address] documented as of this encounter Visit Diagnoses Not on filedocumented in this encounter Additional Health Concerns Assessment Noted Time PHQ-9 Depression Total Score: 5 03/16/20 24 11:45 AM EDT documented as of this encounter Care Teams Package Yarns Drying Machine Operator Relationship Specialty Start Date End Date Brooklyn Jalloh MD [address] [place] [address] PCP - General Family Medicine 07/17/21 documented as of this encounter
--- OUTSIDE RECORDS SUMMARY | 2025-07-19 15:29 | XMS_ITS | Encounter Summary ---
Author Organization [employer] Address [address] [facility] [address] 7t [place] [address] Care Team Providers Care Resort Desk Clerk Name Role Phone Brooklyn Jalloh MD Primary Care Provider [phone] Encounter Details Date Type Department Care Team (Latest Contact Info) Description 07/19/2025 Travel Social History Tobacco Use Types Packs/Day [...] Description 08/13/2025 11:15 AM EDT Office Visit [facility] MEDICINE 230 [place] [address] Brooklyn Jalloh MD [address] [place] [address] documented as of this encounter Visit Diagnoses Not on filedocumented in this encounter Additional Health Concerns Assessment Noted Time PHQ-9 Depression Total Score: 14 025 12:17 PM EDT documented as of this encounter Care Teams Resort Desk Clerk Relationship Specialty Start Date End Date Brooklyn Jalloh MD [address] [place] [address] PCP - General Family Medicine 07/17/21 documented as of this encounter
--- OUTSIDE RECORDS SUMMARY | 2025-07-19 15:29 | XMS_ITS | Encounter Summary ---
Author Organization [employer] Address 75 [facility] 7t [place] [address] Care Team Providers Care Painter Set Name Role Phone Brooklyn Jalloh MD Primary Care Provider [phone] Reason for Visit * Reason Onset Date Comments Durable Medical Equipment 02/07/2023 Encounter Details Date Type Department Care Team (Late st Contact Info) Description 02/07/2023 Telephone [facility] MEDICINE 230 [place] [address] Brooklyn Jalloh MD [address] [place] [address] Durable Medical Equipment Social History Tobacco Use [...] status on walker please contact pt at [phone]. documented in this encounter Plan of Treatment Upcoming Encounters Date Type Department Care Team (Late st Contact Info) Description 08/13/2025 11:15 AM EDT Office Visit [facility] MEDICINE 230 [place], [place] [phone] Brooklyn Jalloh MD [address] [place] [address] documented as of this encounter Visit Diagnoses Not on filedocumented in this encounter Additional Health Concerns Assessment Noted Time PHQ-9 Depression Total Score: 6 02/05/20 23 11:27 AM EDT documented as of this encounter Care Teams Painter Set Relationship Specialty Start Date End Date Brooklyn Jalloh MD [address] [place] [address] PCP - General Family Medicine 07/17/21 documented as of this encounter
--- OUTSIDE RECORDS SUMMARY | 2025-07-19 15:29 | XMS_ITS | Encounter Summary ---
Author Organization [employer] Address 75 [facility] 7t [place] [address] Care Team Providers Care Vp Strategic Planning Name Role Phone Brooklyn Jalloh MD Primary Care Provider [phone] Encounter Details Date Type Department Care Team ([facility] st Contact Info) Description 03/19/2025 Orders Only [facility] MEDICINE [address] [place] [address] Brooklyn Jalloh MD [address] [place] [address] Contact with and (suspected) exposure to infections [...] Description 08/13/2025 11:15 AM EDT Office Visit [facility] MEDICINE [address] [place] [address] Brooklyn Jalloh MD 230 [place] [address] documented as of this encounter Procedures Procedure Name Priority Date/Time Associated Diagnosis Comments T-SPOT(R).TB Routine 04/02/2025 11:49 AM EDT Contact with and (suspected) exposure to infections with a predominantly sexual mode of transmission HEPATITIS C AB W/REFL TO HCV RNA, QN, PCR Routine 04/02/2025 11:49 AM EDT Contact with and (suspected) exposure to infections with a predominantly sexual mode of transmission HIV 1/2 ANTIGEN/ANTIBODY, FOURTH GENERATION W/RFL Routine 04/02/2025 11:49 AM EDT Contact with and (suspected) exposure to infections with a predominantly sexual mode of transmission documented in this encounter Results * T-SPOT??.TB (04/02/2025 11:49 AM EDT) T Spot TB Negative Negative [facility] Comment:A negative test resu lt does not exclude the possibilityof exposure to or infection with Mycobacteriumtuberculosis (M. tuberculosis). Patients with recentexposure to TB infected individuals exhibiting anegative T-SPOT.TB result should be considered forretesting within 6 weeks or if other relevant clinicalsymptoms indicate. Results from T-SPOT.TB testing mustbe used in conjunction with each individual'sepidemiological history, current medical status,and results of other diagnostic evaluations.The T-SPOT.TB test is qualitative and results arereported as positive, borderline, or negative, giventhat the test controls perform as expected. In linewith the Centers for Disease Control and Prevention's2010 recommendation to report quantitative measurementsalongside the qualitative result, the laboratoryprovides spot counts for informational purposes only.The T-SPOT.TB test should not be interpreted as aquantitative test. TS PANEL A 0 [facility] TS PANEL B 0 [facility] Negative Control Passed [facility] Positive Control Passed [facility] Comment:For additional infor luke, please refer tohttp://education.Vertigo/faq/PGO970(This link is being provided for informational/educational purposes only.)THIS TEST WAS PERFORMED AT:[employer] [place] [address]NOTCBXKMARY SNOW MD,PHD 04/02/2025 11:4 9 AM EDT 04/02/2025 1:07 PM EDT us Brooklyn Jalloh MD LAB BLOOD ORDERABLES Final Res ult [facility] [address] [place] [phone] * Hepatitis C Antibody with Reflex to HCV, RNA, Quantitative, Real-Time PCR (04/02/2025 11:49 AM EDT) Hepatitis C Antibody Nonreactive Nonreactive [facility] Comment:Antibodies to HCV no t detected; does not exclude early acuteHCV infection. Blood Venous blood specimen / Unknown 04/02/2025 11:49 AM EDT 04/02/2025 1:17 PM EDT us Brooklyn Jalloh MD LAB BLOOD ORDERABLES Final Res ult [facility] [address] [place] [address] [phone] * HIV-1/2 Antigen and Antibodies, Fourth Generation, with Reflexes (04/02/2025 11:49 AM EDT) HIV AB/AG Nonreactive Nonreactive [facility] Comment:HIV-1 p24 Ag and/or HIV-1/HIV-2 Ab not detected.A test result that is nonreactive does not exclude thepossibility of exposure to or infection with HIV-1 and/orHIV-2. Nonreactive results in this assay for individualswith prior exposure to HIV-1 and/or HIV-2 may be due toantigen and antibody levels that are below the limit ofdetection of this assay.The [employer] HIV Ag/Ab Combo assay result andsupplemental assay results should be interpreted inconjunction with the patient's clinical presentation,history and other laboratory results. If the results areinconsistent with clinical evidence, additional testing issuggested to confirm the result. Blood Venous blood specimen / Unknown 04/02/2025 11:49 AM EDT 04/02/2025 1:17 PM EDT us Brooklyn Jalloh MD LAB BLOOD ORDERABLES Final Res ult [facility] [address] [place] [phone] [phone] documented in this encounter Visit Diagnoses Diagnosis Contact with and (suspected) exposure to infections with a predominantly sexual mode of transmission- Primary documented in this encounter Additional Health Concerns Assessment Noted Time PHQ-9 Depression Total Score: 5 03/16/20 24 11:45 AM EDT documented as of this encounter Care Teams Vp Strategic Planning Relationship Specialty Start Date End Date Brooklyn Jalloh MD [address] [place] [address] PCP - General Family Medicine 07/17/21 documented as of this encounter
--- OUTSIDE RECORDS SUMMARY | 2025-07-19 15:29 | XMS_ITS | Encounter Summary ---
Author Organization [employer] Address 75 [facility] 7t [place] [address] Care Team Providers Care Class A Regional Truck Driver Name Role Phone Brooklyn Jalloh MD Primary Care Provider [phone] Reason for Referral * (Routine) - Closed Specialty Diagnoses / Procedures Referred By Tenzin t Referred To Contact Diagnoses Benign breast disease Procedures BI Mammogram Diagnostic same day Diagnostic same/ Day Right Brooklyn Jalloh MD [address] [place] [address] Phone: tel: fax: Referral ID Status Reason Start Date Expiration Date Visits Re quested Visits Authorized [id number] Closed 03/20/2023 09/16/2023 1 1 Encounter Details Date Type Department Care Team (Late st Contact Info) Description 03/20/2023 Orders Only [facility] MEDICINE [address] [place] [address] [phone] Brooklyn Jalloh MD [address] [place] [address] [phone] Benign breast disease (Primary Dx) Social History [...] Visit [facility] MEDICINE [address] [place] [address] Brooklyn Jalloh MD [address] [place] [address] Scheduled Orders Name Type Priority Associated Diagnoses [...] documented as of this encounter Care Teams Class A Regional Truck Driver Relationship Specialty Start Date End Date Brooklyn Jalloh MD [address] [place] [address] PCP - General Family Medicine 07/17/21 documented as of this encounter
--- OUTSIDE RECORDS SUMMARY | 2025-07-19 15:29 | XMS_ITS | Encounter Summary ---
Author Organization [employer] Address 75 [facility] 7t [place] [address] Care Team Providers Care Farm Supervisor Name Role Phone Brooklyn Jalloh MD Primary Care Provider [phone] Encounter Details Date Type Department Care Team ([facility] Contact Info) Description 02/15/2023 Orders Only [facility] MEDICINE [address] [place] [address] [phone] Brooklyn Jalloh MD [address] [place] [address] [phone] Ingrown toenail (Primary Dx) Social History Tobacco [...] Upcoming Encounters Date Type Department Care Team ([facility] Contact Info) Description 08/13/2025 11:15 AM EDT Office Visit [facility] MEDICINE [address] [place] [address] Brooklyn Jalloh MD [address] [place] [address] documented as of this encounter Visit Diagnoses Diagnosis Ingrown toenail- Primary Ingrowing nail documented in this encounter Additional Health Concerns Assessment Noted Time PHQ-9 Depression Total Score: 6 02/05/20 23 11:27 AM EDT documented as of this encounter Care Teams Farm Supervisor Relationship Specialty Start Date End Date Brooklyn Jalloh MD [address] [place] [address] PCP - General Family Medicine 07/17/21 documented as of this encounter
--- OUTSIDE RECORDS SUMMARY | 2025-07-19 15:29 | XMS_ITS | Encounter Summary ---
Author Organization [employer] Address 75 [facility] 7t [place] [address] Care Team Providers Care Bridge Tender Name Role Phone Brooklyn Jalloh MD Primary Care Provider [phone] Reason for Visit * Reason Onset Date Comments Appointment Request 03/19/2025 Encounter Details Date Type Department Care Team ([facility] st Contact Info) Description 03/19/2025 Telephone [facility] MEDICINE [address] [place] [address] Brooklyn Jalloh MD [address] [place] [address] Appointment Request Social History Tobacco Use Types [...] Description 08/13/2025 11:15 AM EDT Office Visit [facility] MEDICINE [address] [place] [address] Brooklyn Jalloh MD [address] [place] [address] documented as of this encounter Visit Diagnoses Not on filedocumented in this encounter Additional Health Concerns Assessment Noted Time PHQ-9 Depression Total Score: 5 03/16/20 24 11:45 AM EDT documented as of this encounter Care Teams Bridge Tender Relationship Specialty Start Date End Date Brooklyn Jalloh MD [address] [place] [address] PCP - General Family Medicine 07/17/21 documented as of this encounter
--- OUTSIDE RECORDS SUMMARY | 2025-07-19 15:29 | XMS_ITS | Encounter Summary ---
Author Organization [employer] Address 75 [facility] 7t [place] [address] Care Team Providers Care Grease Monkey Name Role Phone Brooklyn Jalloh MD Primary Care Provider [phone] Encounter Details Date Type Department Care Team ([facility] Contact Info) Description 05/11/2023 Orders Only [facility] MEDICINE [address] [place] [address] [phone] Brooklyn Jalloh MD [address] [place] [address] [phone] Onychomycosis (Primary Dx) Social History Tobacco Use [...] Upcoming Encounters Date Type Department Care Team ([facility] Contact Info) Description 08/13/2025 11:15 AM EDT Office Visit [facility] MEDICINE [address] [place] [address] [phone] Brooklyn Jalloh MD [address] [place] [address] documented as of this encounter Visit Diagnoses Diagnosis Onychomycosis- Primary Dermatophytosis of nail documented in this encounter Additional Health Concerns Assessment Noted Time PHQ-9 Depression Total Score: 6 02/05/20 23 11:27 AM EDT documented as of this encounter Care Teams Grease Monkey Relationship Specialty Start Date End Date Brooklyn Jalloh MD [address] [place] [address] PCP - General Family Medicine 07/17/21 documented as of this encounter
--- OUTSIDE RECORDS SUMMARY | 2025-07-19 15:29 | XMS_ITS | Encounter Summary ---
Author Organization [employer] Address 75 [facility] 7t [place] [address] Care Team Providers Care Financial Reporting Consultant Name Role Phone Brooklyn Jalloh MD Primary Care Provider [phone] Encounter Details Date Type Department Care Team (Late st Contact Info) Description 07/23/2023 Abstract [facility] MEDICINE [address] [place] [address] [phone] Brooklyn Jalloh MD [address] [place] [address] [phone] Social History Tobacco Use Types Packs/Day Years [...] Description 08/13/2025 11:15 AM EDT Office Visit [facility] MEDICINE [address] [place] [address] [phone] Brooklyn Jalloh MD [address] [place] [address] [phone] documented as of this encounter Visit Diagnoses Not on filedocumented in this encounter Additional Health Concerns Assessment Noted Time PHQ-9 Depression Total Score: 6 02/05/20 23 11:27 AM EDT documented as of this encounter Care Teams Financial Reporting Consultant Relationship Specialty Start Date End Date Brooklyn Jalloh MD [address] [place] [address] PCP - General Family Medicine 07/17/21 documented as of this encounter
--- OUTSIDE RECORDS SUMMARY | 2025-07-19 15:29 | XMS_ITS | Encounter Summary ---
Author Organization [employer] Address 75 [facility] 7t [place] [address] Care Team Providers Care Hide Spreader Name Role Phone Brooklyn Jalloh MD Primary Care Provider [phone] Reason for Visit * Reason Onset Date Comments Med Refill 02/04/2023 Encounter Details Date Type Department Care Team (Late st Contact Info) Description 02/04/2023 Telephone [facility] MEDICINE [address] [place] [address] Brooklyn Jalloh MD [address] [place] [address] Med Refill Social History Tobacco Use Types [...] AM EDT documented as of this encounter Functional Status * Over the past 2 weeks, how often have you been bothered by any of the following problems? Question Answer Date of Assessment Author Patient Health Questionnaire -2 Score 2 02/04/2023 11:27 AM Mimi Schwarz MA * Over the past 2 weeks, how often have you been bothered by any of the following problems? Question Answer Date of Assessment Author Little interest or pleasure in doing things Several days 02/04/2023 11:27 AM Mimi Schwarz MA Feeling down, depressed, or hopeless Several days 02/04/2023 11:27 AM Mimi Schwarz MA Trouble falling or staying asleep, or sleeping too much Several days 02/04/2023 11:27 AM Mimi Schwarz MA Feeling tired or having little energy Several days 02/04/2023 11:27 AM Mimi Schwarz MA Poor appetite or overeating Several days 02/04/2023 11 :27 AM Mimi Schwarz MA Feeling bad about yourself - or that you are a failure or have let yourself or your family down Several days 02/04/2023 11:27 AM Mimi Schwarz MA Trouble concentrating on things, such as reading the newspaper or watching television Not at all 02/04/2023 11:27 AM Mimi Schwarz MA Moving or speaking so slowly that other people could have noticed? Or the opposite - being so fidgety or restless that you have been moving around a lot more than usual. Not at all 02/04/2023 11:27 AM Mimi Schwarz MA Thoughts that you would be better off or hurting yourself in some way Not at all 02/04/2023 11:27 AM Mimi Schwarz MA Patient Health Questionnaire-9 Score 6 02/04/2023 11:27 AM Artem Schwarz MA documented as of this encounter Miscellaneous Notes * Telephone Encounter - Georgette Higgins LPN - 02/04/2023 3:33 PM EDT Medications were sent to [facility] today 02/04/23. * Telephone Encounter - Ankur Villanueva - 02/04/2023 3:01 PM EDT Tc from pt requesting med refill Prednisone 20 mg Ibuprofen 800 mg Doxycycline 100 mg documented in this encounter Plan of Treatment Upcoming Encounters Date Type Department Care Team (Late st Contact Info) Description 08/13/2025 11:15 AM EDT Office Visit [facility] MEDICINE [address] [place] [address] Brooklyn Jalloh MD [address] [place], [place] [phone] documented as of this encounter Visit Diagnoses Not on filedocumented in this encounter Additional Health Concerns Assessment Noted Time PHQ-9 Depression Total Score: 6 02/05/20 23 11:27 AM EDT documented as of this encounter Care Teams Hide Spreader Relationship Specialty Start Date End Date Brooklyn Jalloh MD [address] [place] [address] PCP - General Family Medicine 07/17/21 documented as of this encounter
--- OUTSIDE RECORDS SUMMARY | 2025-07-19 15:29 | XMS_ITS | Encounter Summary ---
Author Organization [employer] Address [address] [place] [address] Care Team Providers Care Dispatcher Clerk Name Role Phone Brooklyn Jalloh MD Primary Care Provider [phone] Encounter Details Date Type Department Care Team (Late st Contact Info) Description 08/26/2024 Orders Only [facility] [address] [place] [address] Brooklyn Jalloh MD [address] [place] [address] Elevated alkaline phosphatase level (Primary Dx) Social [...] 11:15 AM EDT Office Visit [facility] [address] [place] [address] Brooklyn Jalloh MD [address] [place] [address] documented as of this encounter Procedures Procedure Name Priority Date/Time Associated Diagnosis Comments MITOCHONDRIAL ANTIBODY WITH REFLEX TO TITER Routine 04/02/2025 11:49 AM EDT Elevated alkaline phosphatase level documented in this encounter Results * Mitochondrial Antibody with Reflex to Titer (04/02/2025 11:49 AM EDT) Mitochondrial Antibodies NEGATIVE NEGATIVE [facility] Comment:THIS TEST WAS PERFOR MED AT:[facility] [address] [id number] GRIGGS MD Mitochondrial Ab Titer TNP [facility] Blood Venous blood specimen / Unknown 04/02/2025 11:49 AM EDT 04/02/2025 1:17 PM EDT us Brooklyn Jalloh MD LAB BLOOD ORDERABLES Final Res ult [facility] [address] [place] [address] [phone] documented in this encounter Visit Diagnoses Diagnosis Elevated alkaline phosphatase level- Primary documented in this encounter Additional Health Concerns Assessment Noted Time PHQ-9 Depression Total Score: 5 03/16/20 24 11:45 AM EDT documented as of this encounter Care Teams Dispatcher Clerk Relationship Specialty Start Date End Date Brooklyn Jalloh MD [address] [place] [address] PCP - General Family Medicine 07/17/21 documented as of this encounter
--- OUTSIDE RECORDS SUMMARY | 2025-07-19 15:29 | XMS_ITS | Encounter Summary ---
Author Organization [employer] Address [address] [facility] 7t [place] [address] Care Team Providers Care Trumpet Teacher Name Role Phone Brooklyn Jalloh MD Primary Care Provider [phone] Reason for Visit * Reason Comments Med Refill Encounter Details Date Type Department Care Team ([facility] st Contact Info) Description 05/18/2025 Refill [facility] [address] [place] [address] Brooklyn Jalloh MD [address] [place] [address] Social History Tobacco Use Types Packs/Day Years [...] Description 08/13/2025 11:15 AM EDT Office Visit [facility] [address] [place] [address] Brooklyn Jalloh MD [address] [place] [address] documented as of this encounter Visit Diagnoses Not on filedocumented in this encounter Additional Health Concerns Assessment Noted Time PHQ-9 Depression Total Score: 14 025 12:17 PM EDT documented as of this encounter Care Teams Trumpet Teacher Relationship Specialty Start Date End Date Brooklyn Jalloh MD [address] [place] [phone] PCP - General Family Medicine 07/17/21 documented as of this encounter
--- OUTSIDE RECORDS SUMMARY | 2025-07-19 15:29 | XMS_ITS | Encounter Summary ---
Author Organization [employer] Address [address] [facility] 7t [place] [address] Care Team Providers Care Crystal Grower Name Role Phone Brooklyn Jalloh MD Primary Care Provider [phone] Reason for Visit * Reason Onset Date Comments Medication Question 11/19/2024 Encounter Details Date Type Department Care Team ([facility] st Contact Info) Description 11/19/[address] [facility] [address] [place] [address] Brooklyn Jalloh MD [address] [place] [address] Medication Question Social History Tobacco Use Types [...] AM EDT Office Visit [facility] [address] [place] [address] Brooklyn Jalloh MD [address] [place] [address] documented as of this encounter Visit Diagnoses Not on filedocumented in this encounter Additional Health Concerns Assessment Noted Time PHQ-9 Depression Total Score: 5 03/16/20 24 11:45 AM EDT documented as of this encounter Care Teams Crystal Grower Relationship Specialty Start Date End Date Brooklyn Jalloh MD [address] [place], [place] [phone] PCP - General Family Medicine 07/17/21 documented as of this encounter
--- OUTSIDE RECORDS SUMMARY | 2025-07-19 15:30 | XMS_ITS | Encounter Summary ---
Author Organization [employer] Address [address] [facility] 7t [place] [address] Care Team Providers Care Heel Seat Trimmer Name Role Phone Brooklyn Jalloh MD Primary Care Provider Encounter Details Date Type Department Care Team ([facility] Contact Info) Description 11/12/2022 Orders Only [facility] [address] [place] [address] [phone] Brooklyn Jalloh MD [address] [place] [address] [phone] Social History Tobacco Use Types Packs/Day Years [...] Upcoming Encounters Date Type Department Care Team ([facility] Contact Info) Description 08/13/2025 11:15 AM EDT Office Visit [facility] [address] [place] [address] Brooklyn Jalloh MD [address] [place] [address] [phone] documented as of this encounter Visit Diagnoses Not on filedocumented in this encounter Care Teams Heel Seat Trimmer Relationship Specialty Start Date End Date Brooklyn Jalloh MD [address] [place] [address] PCP - General Family Medicine 07/17/21 documented as of this encounter
--- OUTSIDE RECORDS SUMMARY | 2025-07-19 15:30 | XMS_ITS | Encounter Summary ---
Author Organization [employer] Address [address] [facility] [address] [address] 7[address] [place] [address] Care Team Providers Care Seal Extrusion Operator Name Role Phone Brooklyn Jalloh MD Primary Care Provider [phone] Encounter Details Date Type Department Care Team (Late st Contact Info) Description 03/10/2024 Orders Only [facility] [address] [place], [place] [phone] Brooklyn Jalloh MD [address] [place] [address] Social History Tobacco Use Types Packs/Day Years [...] 08/13/2025 11:15 AM EDT Office Visit [facility] [address] [place] [address] Brooklyn Jalloh MD [address] [place] [address] documented as of this encounter Visit Diagnoses Not on filedocumented in this encounter Additional Health Concerns Assessment Noted Time PHQ-9 Depression Total Score: 6 02/05/20 23 11:27 AM EDT documented as of this encounter Care Teams Seal Extrusion Operator Relationship Specialty Start Date End Date Brooklyn Jalloh MD [address] [place] [address] PCP - General Family Medicine 07/17/21 documented as of this encounter
--- OUTSIDE RECORDS SUMMARY | 2025-07-19 15:30 | XMS_ITS | Encounter Summary ---
Author Organization [employer] [facility] Address [address] [facility] 7t [place] [address] Care Team Providers Care Building Maintenance Custodian Name Role Phone Brooklyn Jalloh MD Primary Care Provider [phone] Encounter Details Date Type Department Care Team (Latest Contact Info) Description 06/27/2022 Abstract [facility] CONVERSIONS Dental, Provider, DDS Social History Tobacco [...] EDT Office Visit [facility] [address] [place] [address] Brooklyn Jalloh MD [address] [place] [address] documented as of this encounter Visit Diagnoses Not on filedocumented in this encounter Care Teams Building Maintenance Custodian Relationship Specialty Start Date End Date Brooklyn Jalloh MD [address] [place] [address] PCP - General Family Medicine 07/17/21 documented as of this encounter
--- OUTSIDE RECORDS SUMMARY | 2025-07-19 15:30 | XMS_ITS | Encounter Summary ---
Author Organization [employer] Address [address] [facility] 7t [place] [address] Care Team Providers Care Engineer Station Mainline Name Role Phone Brooklyn Jalloh MD Primary Care Provider [phone] Reason for Referral * Consultation (Routine) - Closed Specialty Diagnoses / Procedures Referred By Tenzin ahumada Referred To Contact Orthopaedic Surgery Diagnoses Primary osteoarthritis of both knees Brooklyn Jalloh MD [address] [place] [address] Phone: tel: fax: [facility] [address] [place] [address] Phone: tel: Referral ID Status Reason Start Date Expiration Date V isits Requested Visits Authorized [id number] Closed Specialty Services Required 02/18/2024 02/17/2025 1 1 Encounter Details Date Type Department Care Team (Late st Contact Info) Description 02/18/2024 Orders Only [facility] [address] [place] [phone] Brooklyn Jalloh MD [address] [place] [address] Primary osteoarthritis of both knees (Primary Dx) [...] Description 08/13/2025 11:15 AM EDT Office Visit [facility] [address] [place] [phone] Brooklyn Jalloh MD [address] [place] [address] Scheduled Referrals Name Type Priority Associated Diagnoses [...] PM EDT Narrative 03/09/2024 2:27 PM EDT [address] [address] XRay Report Signed Patient: Machelle Wooten MR#: [id number] : 1970 Acct:[id number] Age/Sex: 54 / F ADM Date: 03/09/24 Loc: HO.ED Attending Dr: Ordering Physician: Zack Lainez Date of Service: 03/09/24 Procedure(s): XR chest 2V Accession Number(s): [id number] cc: Brooklyn Jalloh; Zack Lainez EXAMINATION: XR [...] <Electronically signed by Boyd Miller Jr, DO in OV> 03/09/24 1424 DD/ 1408 TD/TT: Pulp Screen Operator: CLEO Procedure Note Donotuseinterpreter, Image - 03/09/[address] [address] XRay Report Signed Patient: Machelle WootenMR#: [id number] : 1970Acct:[id number] Age/Sex: 54 / FADM Date: 03/09/24 Loc: HO.ED Attending Dr: Ordering Physician: Zack Lainez Date of Service: 03/09/24 Procedure(s): XR chest 2V Accession Number(s): [id number] cc: Brooklyn Jalloh; Zack Lainez EXAMINATION: XR [...] By: <Electronically signed by Boyd Miller Jr, inOV> 03/09/24 1424 DD/ 1408 TD/TT: Pulp Screen Operator: CLEO [facility] External Provider IMG XR PROCEDURES Edited Result - Final documented in this encounter Visit Diagnoses Diagnosis Primary osteoarthritis of both knees- Primary documented in this encounter Additional Health Concerns Assessment Noted Time PHQ-9 Depression Total Score: 6 02/05/20 23 11:27 AM EDT documented as of this encounter Care Teams Engineer Station Mainline Relationship Specialty Start Date End Date Brooklyn Jalloh MD [address] [place] [address] PCP - General Family Medicine 07/17/21 documented as of this encounter
== END 2025-07-19 14:07 | disposition home or self-care (01) ==
LOC: HO.HHCX 14:06
PROVIDERS: Visit Provider Internal Medicine
DX: R05.3 Chronic cough (principal)
CPT/HCPCS: 71046

== ENCOUNTER → 2025-07-19 14:06 | Outpatient (BNV) | payer OTHER, SELFPAY | PROVIDERS: Visit Provider Radiology Diagnostic Radiology | DX: R05.3 Chronic cough (principal); R07.81 Pleurodynia | CPT/HCPCS: 71046 ==

== ENCOUNTER → 2025-07-22 07:52 | Outpatient (BNV) | payer OTHER, SELFPAY | PROVIDERS: PCP General Practice; Visit Provider Radiology Diagnostic Radiology | DX: J45.909 Unspecified asthma, uncomplicated (principal); R06.02 Shortness of breath | CPT/HCPCS: 71045; 71275 ==

== ENCOUNTER 2025-07-22 08:27 | Emergency (ER) | payer OTHER, SELFPAY ==
--- OUTSIDE RECORDS SUMMARY | 2025-07-19 13:40 | XMS_ITS | Encounter Summary ---
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 Name Role Phone Brooklyn Jalloh MD Primary Care Provider [phone] Reason for Visit * Reason Comments Asthma Encounter Details Date Type Department Care Team ([facility] st Contact Info) Description 07/19/2025 1:40 PM EDT Office Visit [facility] [address] [place] [address] Zhane Gandhi MD [address] [place] [address] Chronic cough (Primary Dx); Viral URI Social History Tobacco Use Types Packs/Day Years [...] Sign Reading Time Taken Comments Blood Pressure 120/78 07/19/2025 1:38 PM EDT Pulse 85 07/19/2025 1:38 PM EDT Temperature 36.8 C (98.2 F) 07/19/2025 1:38 PM EDT Respiratory Rate 22 07/19/2025 1:38 PM EDT Oxygen Saturation 98% 07/19/2025 1:38 PM EDT Inhaled Oxygen Concentration - - Weight 65.5 kg (144 lb 6.4 oz) 07/19/2025 1:38 P M EDT Height - - Body Mass Index 23.31 07/13/2025 1:24 PM EDT documented in this encounter Progress Notes * Zhane Gandhi MD - 07/19/2025 1:40 PM EDT SUBJECTIVE Machelle Barroso is a 55 y.o. female patient of Brooklyn Jalloh MD who presents for persistent cough and chest tightness. HPI Going on 5-6 weeks now, Machelle has been bothered by a persistent cough associated with some chest tightness anteriorly and in the lower posterior chest. She says the cough is not worse at night, occasionally associated with SOB, but no fever, chills, palpitations, leg swelling, and no history of VTE. She has been taking her Breo as prescribed, high-dose nasal steroid as prescribed, albuterol as needed, cetirizine daily since I saw her about 1 week ago, and previously she had 5 days of prednisone and Z pack. She is very frustrated. Review of Systems Constitutional: Negative for chills and fever. HENT: Positive for postnasal drip. Negative for congestion, ear pain, facial swelling, rhinorrhea, sinus pressure, sinus pain, sneezing and sore throat. Respiratory: Positive for cough, chest tightness and shortness of breath. Negative for wheezing. Cardiovascular: Negative for chest pain, palpitations and leg swelling. OBJECTIVE Vitals: 07/19/25 1338 BP: 120/78 BP Location: Left arm Patient Position: Sitting BP Cuff Size: Adult Pulse: 85 Resp: 22 Temp: 98.2 ??F (36.8 ??C) TempSrc: Temporal SpO2: 98% Weight: 144 lb 6.4 oz (65.5 kg) Physical Exam Constitutional: Appearance: She is not toxic-appearing. HENT: Head: Normocephalic and atraumatic. Right Ear: Tympanic membrane, ear canal and external ear normal. Left Ear: Tympanic membrane, ear canal and external ear normal. Nose: Nose normal. No congestion. Mouth/Throat: Mouth: Mucous membranes are moist. Eyes: General: Right eye: No discharge. Left eye: No discharge. Extraocular Movements: Extraocular movements intact. Conjunctiva/sclera: Conjunctivae normal. Pupils: Pupils are equal, round, and reactive to light. Cardiovascular: Rate and Rhythm: Normal rate and regular rhythm. Pulses: Normal pulses. Heart sounds: Normal heart sounds. No murmur heard. No gallop. Pulmonary: Effort: Pulmonary effort is normal. Breath sounds: Normal breath sounds. No wheezing or rales. Abdominal: General: Abdomen is flat. Bowel sounds are normal. Musculoskeletal: Right lower leg: No edema. Left lower leg: No edema. Lymphadenopathy: Cervical: No cervical adenopathy. Skin: General: Skin is warm and dry. Capillary Refill: Capillary refill takes less than 2 seconds. Neurological: General: No focal deficit present. Mental Status: She is alert. Psychiatric: Mood and Affect: Mood normal. Behavior: Behavior normal. Assessment/Plan Assessment/Plan Diagnoses and all orders for this visit: Chronic cough: CXR today is normal except for some mild degenerative disc disease. Physical exam isnormal too, other than frequent throat clearing. Viral tests today are negative. Again, like at herlast visit, I recommended nasal saline rinses but again she said it would be too uncomfortable. Sheis taking lisinopril 5 mg/day for many years, and her BP is well controlled. I recommended she stoplisinopril and switch to low dose losartan 12.5 mg/day to see if that helps. She could see improvement in a few days or in a month. She has follow up scheduled with her PCP Dr. Jalloh on 08/13/25 at which time she can reassess. 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 - XR Chest 2 Views; Future - POCT Rapid COVID Ag - Influenza A (ID NOW Rapid Molecular) - Influenza B (ID NOW Rapid Molecular) Other orders - losartan (Cozaar) 25 MG tablet; Take 0.5 tablets (12.5 mg) by mouth Once per day. Future Appointments Date Time Provider Department Center 08/13/2025 11:15 AM Brooklyn Jalloh MD MEDICINE [facility] documented in this encounter Plan of Treatment Upcoming Encounters Date Type Department Care Team (Late st Contact Info) Description 07/23/2025 11:00 AM EDT Office Visit [facility] MED[facility] [address] [place] [address] [phone] Name, MD Raffi [address] [place] [phone] 08/13/2025 11:15 AM EDT Office Visit [address] [phone] Brooklyn Jalloh MD [address] [place] [phone] documented as of this encounter Procedures Procedure Name Priority Date/Time Associated Diagnosis Comments POCT INFLUENZA B (ID NOW RAPID MOLECULAR) Routine 07/19/2025 1:59 PM EDT Viral URI POCT INFLUENZA A (ID NOW RAPID MOLECULAR) Routine 07/19/2025 1:59 PM EDT Viral URI POCT RAPID COVID ANTIGEN Routine 07/19/2025 1:59 PM EDT Viral URI XR CHEST 2 VIEWS Routine 07/19/2025 1:29 PM EDT Chronic cough documented in this encounter Results * Influenza B (ID NOW Rapid Molecular) (07/19/2025 1:59 PM EDT) [facility] Influenza B Negative Negative, Indeterminate [facility] Swab 07/19/2025 1:59 PM EDT Zhane Gandhi MD POINT OF CARE TEST ENTER/EDIT ORDERABLES Final Result Performing Organization Address [facility] Co de Phone Number [facility] [address] [place] [phone] * Influenza A (ID NOW Rapid Molecular) (07/19/2025 1:59 PM EDT) [facility] Influenza A Negative Negative, Indeterminate [facility] Swab 07/19/2025 1:59 PM EDT Zhane Gandhi MD POINT OF CARE TEST ENTER/EDIT ORDERABLES Final Result Performing Organization Address [facility]/ZIP Co de Phone Number [facility] [address] [place] [phone] * POCT Rapid COVID Ag (07/19/2025 1:59 PM EDT) [facility] Rapid COVID Ag Negative [facility] Swab 07/19/2025 1:59 PM EDT Zhane Gandhi MD POINT OF CARE TEST ENTER/EDIT ORDERABLES Final Result [facility] [address] [place] [phone] * XR Chest 2 Views (07/19/2025 1:29 PM EDT) Anatomical Region Laterality Modality Chest Radiographic Zina ging 07/19/2025 1:29 PM EDT Narrative 07/19/2025 2:36 PM EDT [facility] [address] [place] [address] XRay Report Signed Patient: Machelle Wooten MR#: [id number] : 1970 Acct:[id number] Age/Sex: 55 / F ADM Date: 07/19/25 Loc: HO.HHCX Attending Dr: Zhane Gandhi MD Ordering Physician: Zhane Gandhi MD Date of Service: 07/19/25 Procedure(s): XR chest 2V Accession Number(s): [id number] cc: Zhane Gandhi MD EXAMINATION: XR CHEST 2 VIEWS HISTORY: Chronic cough with pleuritic pain COMPARISON: Comparison is made with the prior examination dated 03/20/2025. FINDINGS: PA and lateral views of the chest are submitted. The lungs are expanded and clear. There is no pleural effusion, pneumothorax, or pulmonary vascular congestion. The heart is normal in size. There is mild degenerative disc disease of the spine. XR/XR chest 2V IMPRESSION: No acute cardiopulmonary abnormality. Electronically signed by: Lencho Benítez MD 07/19/2025 02:33 PM EDT Dictated By: Lencho Benítez MD Signed By: <Electronically signed by Lencho Benítez MD in OV> 07/19/25 1433 DD/ 1329 TD/TT: 07/19/25 1400 Software Clerk: Procedure Note Donotuseinterpreter, Image - 07/19/2025 [facility] [address] [place] [address] XRay Report Signed Patient: Machelle Wooten#: [id number] : 1970Acct:[id number] Age/Sex: 55 / FADM Date: 07/19/25 Loc: HO.HHCX Attending Dr: Zhane Gandhi MD Ordering Physician: Zhane Gandhi MD Date of Service: 07/19/25 Procedure(s): XR chest 2V Accession Number(s): [id number] cc: hZane Gandhi MD EXAMINATION: XR CHEST 2 VIEWS HISTORY: Chronic cough with pleuritic pain COMPARISON: Comparison is made with the prior examination dated 03/20/2025. FINDINGS: PA and lateral views of the chest are submitted. The lungs are expanded and clear. There is no pleural effusion, pneumothorax, or pulmonary vascular congestion. The heart is normal in size. There is mild degenerative disc disease of the spine. XR/XR chest 2V IMPRESSION: No acute cardiopulmonary abnormality. Electronically signed by: Lencho Benítez MD 07/19/2025 02:33 PM EDT Dictated By: Lencho Benítez MD Signed By: <Electronically signed by Lencho Benítez MD in OV> 07/19/25 1433 DD/ 1329 TD/TT: 07/19/25 1400 Software Clerk: Zhane Gandhi MD IMG XR PROCEDURES Final Resul t documented in this encounter Visit Diagnoses Diagnosis Chronic cough- Primary Cough Viral URI Acute upper respiratory infections of unspecified site documented in this encounter Additional Health Concerns Assessment Noted Time PHQ-9 Depression Total Score: 14 025 12:17 PM EDT documented as of this encounter Care Teams Toy Painter Relationship Specialty Start Date End Date Brooklyn Jalloh MD [address] [place] [address] PCP - General Family Medicine 07/17/21 documented as of this encounter
--- NOTE | ~2025-07-22 | CT_ITS ---
EXAMINATION: CT ANGIOGRAM CHEST CLINICAL INFORMATION: Shortness of breath. Chest pain. COMPARISON: None available. TECHNIQUE: Multiple axial images were obtained through the chest after the administration of 65 mL of Omnipaque 350 intravenous contrast. Extensive vascular post-processing including two-dimensional and three-dimensional reformatted images were created and reviewed on an independent workstation. SmartPrep technique. This CT examination was performed using dose optimization techniques as appropriate, variously including the following: *Automated exposure control *Adjustment of mA and/or kV according to patient size (this includes techniques or standardized protocols for targeted exams where dose is matched to indication/reason for exam; i.e. extremities or head) *Use of iterative reconstruction technique DLP: 378 mGy centimeter. FINDINGS: Inadequate smart prepped technique. The main pulmonary artery or its main branches demonstrated normal patency without intraluminal filling defects. No aneurysm or dissection or focal stenosis or thoracic aorta. There is a subtle pulmonary mosaic pattern. No consolidation, pleural effusion or pneumothorax. No calcified pleural plaques. No honeycombing. No bronchiectasis. No gross emphysematous changes. No mediastinal lymphadenopathy. No pericardial effusion. No pneumomediastinum. Heart is not enlarged. Status post cholecystectomy. Multilevel thoracic spondylosis. A shaped curvature of the thoracic spine. No gross acute rib fracture. CT/CT angio chest PE protocol IMPRESSION: No acute pulmonary artery emboli. Consider small airway disease in the correct clinical settings. Fleischner guidelines were followed. Electronically signed by: Wisam Worley MD 07/22/2025 10:48 AM EDT
--- NOTE | ~2025-07-22 | XR_ITS ---
EXAMINATION: XR CHEST CLINICAL INFORMATION: short of breath/asthma and R-upper back pain COMPARISON: July 19, 2025. TECHNIQUE: Frontal view of the chest was obtained. FINDINGS: Pulmonary reticular pattern and slight prominence on the inferior right perihilar/right middle lung lobe region. No pleural effusion. No pneumothorax. Cardiomediastinal silhouette size is normal. Mild multilevel thoracic spondylosis and a shaped curvature versus positioning. XR/XR chest 1V IMPRESSION: Questionable acute airspace disease/acute small airway inflammatory process, right middle lung lobe. Electronically signed by: Wisam Worley MD 07/22/2025 09:08 AM EDT
[2025-07-22 08:46] VITALS: BP 124/74; PULSE 66; RESP 18; TEMP 36.5; O2SAT 100; BMI 32.7
--- NOTE | 2025-07-22 08:55 | ED_ITS ---
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 Patient states that over the last 2 weeks she has had worsening shortness of breath and lung pain despite using her inhaler. Patient denies any other complaints at this time. Onset (ago): week(s) (2) Associated symptoms: shortness of breath Related Data Home Medications ?Medication ?Instructions ?Recorded ?Confirmed atorvastatin 20 mg tablet 20 mg PO DAILY 09/14/2008/19 baclofen 10 mg tablet 10 mg PO DAILY 09/14/2008/19 lisinopril 5 mg tablet 5 mg PO DAILY 09/14/2012/03 omeprazole 20 mg capsule,delayed 20 mg PO DAILY 12/03/24 release trazodone 50 mg tablet 25 mg PO DAILY 09/14/2008/19 acetaminophen 650 mg 650 mg PO Q8H 02/13/2212/03 tablet,extended release (Tylenol 8 Hour) gabapentin 100 mg capsule 100 mg PO DAILY 02/13/2208/19 simethicone 80 mg chewable tablet 80 mg PO Q8H PRN gas 02/01/23 12/03/24 (Gas Relief (simethicone)) fluoxetine 20 mg capsule 40 mg PO QAM 02/13/23 buspirone 5 mg tablet 10 mg PO BID 02/12/24 sucralfate 1 gram tablet 1 g PO BID 02/12/24 12/03/24 triamcinolone acetonide 0.1 % appl topical 02/12/24 topical cream metformin 500 mg tablet,extended 500 mg PO DAILY 10/1412/03/24 release 24 hr Previous Rx's ?Medication ?Instructions ?Recorded leg brace (Knee Support Brace) #1 ea 09/28/20 lactulose 10 gram/15 mL oral 10 g (15 mL) PO DAILY PRN 02/07/22 solution constipation #237 mL ipratropium bromide 42 mcg (0.06 2 spray intranasal TI D-QID PRN 02/07/24 %) nasal spray allergy symptoms 30 days #15 mL benzonatate 200 mg capsule 200 mg PO TID PRN cough #15 caps 03/09/24 ibuprofen 600 mg tablet 600 mg PO Q6H PRN pain #30 t abs 03/09/24 ondansetron 4 mg disintegrating 4 mg PO Q6H PRN nausea and 07/09/24 tablet vomiting #14 tabs prednisone 20 mg tablet 40 mg (2 x 20 mg) PO DAILY # 14 tabs 07/24/24 cyclobenzaprine 10 mg tablet 10 mg PO TID PRN muscle s pasm #10 03/20/25 tabs lidocaine 5 % topical patch 1 patch topical DAILY #15 ea 03/20/25 albuterol sulfate 90 mcg/actuation 2 puff inhalation Q ID PRN for 07/06/25 aerosol inhaler (Ventolin HFA) wheezing #18 grams fluticasone furoate 200 1 ea inhalation DAILY #60 ea 07/14/25 mcg-vilanterol 25 mcg/dose inhalation powder (Breo Ellipta) prednisone 20 mg tablet 40 mg (2 x 20 mg) PO DAILY C OPD 07/22/25 exacerbation 5 days #10 tabs Allergies Allergy/AdvReac Type Severity Reaction Status Date / Time shrimp (SHRIMP) Allergy Unknown UNKNOWN Verified 07/22/25 08:51 Review of Systems 2 Constitutional: Constitutional: Reports as per HPI Eyes: Eyes: Reports as per HPI ENT: Reports as per HPI Cardiovascular: Cardiovascular: Reports as per HPI Respiratory: Respiratory: Reports as per HPI Gastrointestinal: Gastrointestinal: Reports as per HPI Genitourinary: Genitourinary: Reports as per HPI Musculoskeletal: Musculoskeletal: Reports as per HPI Integumentary/Breasts: Skin/Breast: Reports as per HPI Neurologic: Reports as per HPI Psychiatric: Psychiatric: Reports as per HPI Endocrine: Endocrine: Reports as per HPI Hematologic/Lymphatic: Hematologic/Lymphatic: Reports as per HPI Allergic/Immunologic: Allergic/Immunologic: Reports as per HPI [facility] Past Medical History Attestation statement: The following information was validated with the patient. Source: old records reviewed and nursing notes reviewed Medical History Other and unspecified hyperlipidemia Essential hypertension Family history of coronary artery disease Bilateral knee pain Chronic pain Fibromyalgia Surgical History History of cholecystectomy H/O section H/O lateral meniscus repair of left knee History of hysterectomy Family History Family History Father History of open heart surgery Brother Hypertension Mother Colon cancer Social History Social History Household Members Other:: son Housing: Apartment Alcohol intake: never Patient Tobacco Use Status: Never used Tobacco Advance Directives: No Advance Directives Information Provided: No Current occupational status: disabled Current occupation: Right Handed Physical Exam ED Vital Signs: Vital Signs - 24 hr 07/22/25 08:46 07/22/25 09:12 07/22/25 09:47 Temperature 97.7 F Pulse Rate 66 74 Respiratory Rate 18 16 20 Blood Pressure 124/74 Pulse Oximetry 100 Oxygen Delivery Method Room Air 07/22/25 11:58 Temperature 97.9 F Pulse Rate 74 Respiratory Rate 20 Blood Pressure 132/80 Pulse Oximetry 96 Oxygen Delivery Method Room Air BMI result Body Mass Index 32.7 Const General: cooperative, no acute distress, alert and awake Nutritional Appearance: well nourished Orientation/consciousness: patient oriented x3 HENMT Head: Yes normal to inspection and Yes atraumatic Ears: hearing grossly normal bilaterally and external ears normal General nose exam: Normal external nose present, no nasal discharge noted and no epistaxis Face and sinus: Yes normal facial exam, No abrasion and No laceration Mouth: Normal oral and palatal mucosa present, no drooling and no muffled voice Eyes General: appearance normal, both eyes and all related structures Periorbital: periorbital findings normal Eyelids: Yes eyelids normal Conjunctivae: conjunctivae normal Pupils: Equal, round and reactive pupils present EOM: EOMs intact bilaterally Neck Neck: Yes normal visual inspection and Yes full ROM Resp Effort & Inspection: normal respiratory effort and able to speak in complete sentences Auscultation: diminished lung sounds Neuro General: patient oriented x3, moves all extremities and CN's II-XI intact bilaterally Cranial nerves: Yes Equal, round and reactive pupils present Cognition (Neuro): normal cognition Extrem General: Yes normal to inspection, Yes full ROM and Yes capillary refill normal Psych Appearance: grossly normal Mental Status: mental status grossly normal Affect: normal affect Attitude: cooperative Thought process: Normal thought process present Thought content: Normal thought content present Insight: Good insight present (Psych) Medications Administered Discontinued Medications Generic Name Dose Route Start Last Admin Trade Name Harjit PRN Reason Stop Dose Admin Albuterol/Ipratropium 3 ml 07/22/25 09:09 07/22/25 09:11 Albuterol/Iprat 2.5/0.5mg 3 Ml Ampul.Neb INHALE 07/22/25 09:10 3 ml ONCE ONE Administration Hydromorphone HCl 0.5 mg 07/22/25 09:06 07/22/25 09:47 Hydromorphone Hcl 0.5 Mg/0.5 Ml Syringe IVPUSH 07/22/25 09:07 0.5 mg ONCE ONE Administration Protocol Magnesium Sulfate/Dextrose 1 gm in 100 mls @ 100 mls/hr 07/22/25 09:07 07/22/25 09:47 Magnesium Sulfate/D5w IV 07/22/25 10:06 100 mls/hr ONCE ONE Administration Iohexol 100 ml 07/22/25 10:18 07/22/25 10:18 Iohexol 350 Mg/Ml 100 Ml Infus..Btl IV 07/22/25 10:19 65 ml ONCE ONE Administration Ketorolac Tromethamine 15 mg 07/22/25 09:06 07/22/25 09:46 Ketorolac Tromethamine 15 Mg/Ml Vial IM 07/22/25 09:07 15 mg ONCE ONE Administration Methylprednisolone Sodium Succinate 60 mg 07/22/25 09:07 07/22/25 09:46 Methylprednisolone Sod Succ 125 Mg/2 Ml Vial IVPUSH 07/22/25 09:08 60 mg ONCE ONE Administration Ondansetron HCl 4 mg 07/22/25 09:06 07/22/25 09:46 Ondansetron Hcl 4 Mg/2 Ml Vial IVPUSH 07/22/25 09:07 4 mg ONCE ONE Administration Medical Decision Making Medical Decision Making MDM Narrative: Patient is a 55 year old assigned female at with a history of asthma, fibromyalgia, migraines, GERD, depression, anxiety, and OA presenting to the emergency department today with a cough and lung pain. Patient's physical exam was as noted in the [facility] Rationale portion of this note. Patient's blood work showed elevated ALT at 33 and alk phos at 166. Patient's alk phos appears to be chronically elevated. Patient's chest x-ray showed questionable acute airspace disease / acute small airway inflammatory process in the right middle lung lobe. Patient's CT PE study also showed small airway disease but no evidence of of PE. I explained my physical exam findings as well as all test results to the patient. I answered all questions asked by the patient. Patient received a breathing treatment, IV magnesium, and IV solu-medrol which, upon re-evaluation, she stated it helped her symptoms significantly. I stressed the importance of the patient taking her medication as directed (either prescribed or as the over the counter packaging recommends). I stressed the importance of the patient following up with her primary care provider. I stressed the importance of the patient returning to the emergency department immediately if her symptoms were to worsen or if she were to develop any dizziness, shortness of breath, difficulty breathing, chest pain, blurry vision, loss of vision, nausea, vomiting, abdominal pain, fever, chills, back pain, or any other complaints. Patient verbalized agreement and understanding with this treatment plan and discharge. Differential Diagnosis Differential Diagnoses: The differential diagnosis associated with the presentation includes Asthma exacerbation SOB PE Admission/Observation Consideration of admission/observation: Escalation of care including admission/observation considered Patient would have been admitted to the hospital had her work up had any findings where hospital admission was appropriate and her clinical presentation warranted hospital admission. Lab Data [facility] Lab Attestation statement: I reviewed the patient's lab results. My interpretation of these results are in the MDM Rationale portion of this note. 07/22/25 09:11 07/22/25 09:11 Labs: Lab Results 07/22/25 Range/Units 09:11 WBC 11.3 H (4.8-10.8) X10*3/uL RBC 4.80 (4.20-5.50) X10*6/uL Hgb 13.0 (12.0-16.0) g/dl Hct 40.5 (37.0-47.0) % MCV 84.4 (80.0-98.0) fL MCH 27.1 (27.0-33.0) pg MCHC 32.1 (31.0-35.0) g/dl RDW 14.4 (11.0-16.0) % Plt Count 327 (160-400) X10*3/uL MPV 10.3 (9.4-12.3) fL Absolute Nucleated RBC 0.000 (0.0-0.012) X10*3/uL Nucleated RBC % (auto) 0.0 (0.0-0.2) /100WBC Sodium 141 (135-145) mmol/L Potassium 3.7 (3.3-5.1) mmol/L Chloride 106 (96-108) mmol/L Carbon Dioxide 26 (22-29) mmol/L Anion Gap 13 (12-20) BUN 16 (9-16) mg/dL Creatinine 0.79 (0.5-1.4) mg/dL Estim Creat Clear Calc 86.6 Estimated GFR > 60 Random Glucose 104 (60-115) mg/dL Calcium 9.3 (8.4-10.2) mg/dL Magnesium 1.9 (1.6-2.6) mg/dL Total Bilirubin 0.5 (0.0-1.0) mg/dL AST 27 (5-31) U/L ALT 33 H (0-31) U/L Alkaline Phosphatase 166 H (39-117) U/L Total Protein 7.3 (6.5-8.0) g/dL Albumin 4.4 (3.5-5.0) g/dL Influenza Type A (PCR) NEGATIVE (Negative) Influenza Type B (PCR) NEGATIVE (Negative) RSV RNA Qual (PCR) NEGATIVE (Negative) SARS-CoV-2 RNA (RT-PCR) NEGATIVE (Negative) Independent Interpretation I performed an independent interpretation of an: Plain X-Ray and CT Scan Interpretation: My interpretation is in agreement with the radiologist's impression of these imaging studies. L EXAMINATION: XR CHEST CLINICAL INFORMATION: short of breath/asthma and R-upper back pain COMPARISON: July 19, 2025. TECHNIQUE: Frontal view of the chest was obtained. FINDINGS: Pulmonary reticular pattern and slight prominence on the inferior right perihilar/right middle lung lobe region. No pleural effusion. No pneumothorax. Cardiomediastinal silhouette size is normal. Mild multilevel thoracic spondylosis and a shaped curvature versus positioning. XR/XR chest 1V IMPRESSION: Questionable acute airspace disease/acute small airway inflammatory process, right middle lung lobe. Electronically signed by: Wisam Worley MD 07/22/2025 09:08 AM EDT Dictated By: Wisam Miranda MD Signed By: Electronically signed by Wisam Cruz MD 07/22/25 0908 Report Number: [id number]: Total DLP = 378.00 mGy-cm EXAMINATION: CT ANGIOGRAM CHEST CLINICAL INFORMATION: Shortness of breath. Chest pain. COMPARISON: None available. TECHNIQUE: Multiple axial images were obtained through the chest after the administration of 65 mL of Omnipaque 350 intravenous contrast. Extensive vascular post-processing including two-dimensional and three- dimensional reformatted images were created and reviewed on an independent workstation. SmartPrep technique. This CT examination was performed using dose optimization techniques as appropriate, variously including the following: *Automated exposure control *Adjustment of mA and/or kV according to patient size (this includes techniques or standardized protocols for targeted exams where dose is matched to indication/reason for exam; i.e. extremities or head) *Use of iterative reconstruction technique DLP: 378 mGy centimeter. FINDINGS: Inadequate smart prepped technique. The main pulmonary artery or its main branches demonstrated normal patency without intraluminal filling defects. No aneurysm or dissection or focal stenosis or thoracic aorta. There is a subtle pulmonary mosaic pattern. No consolidation, pleural effusion or pneumothorax. No calcified pleural plaques. No honeycombing. No bronchiectasis. No gross emphysematous changes. No mediastinal lymphadenopathy. No pericardial effusion. No pneumomediastinum. Heart is not enlarged. Status post cholecystectomy. Multilevel thoracic spondylosis. A shaped curvature of the thoracic spine. No gross acute rib fracture. CT/CT angio chest PE protocol IMPRESSION: No acute pulmonary artery emboli. Consider small airway disease in the correct clinical settings. Fleischner guidelines were followed. Electronically signed by: Wisam Worley MD 07/22/2025 10:48 AM EDT Dictated By: Wisam Miranda MD Signed By: Electronically signed by Wisam Cruz MD 07/22/25 1048 Radiology Impression Discussion of test interpretation with radiology: I have reviewed the radiologist's reading. Critical Care Time Critical Care Time Critical Care Time: Yes Total Critical Care Time: 36 Attestation: I spent 36 minutes of Critical Care Time with this patient. This does not include time spent on separately reported billable procedures. Discharge Plan Discharge Clinical Impression: Asthma exacerbation Qualifiers: Asthma severity: mild Asthma persistence: intermittent Qualified Code(s): J 45.21 - Mild intermittent asthma with (acute) exacerbation Patient Disposition: Home, Self-Care Instructions: Asthma (DC) Additional Instructions: IF you are prescribed home medications and/or you are taking over the counter medications at home - it is very important you continue to do so as prescribed / directed unless told otherwise. SI le recetan medicamentos y/o est? tomando medicamentos de venta adolfo, es muy importante que contin?e haci?ndolo seg?n lo recetado/indicado a menos que le indiquen lo contrario. Follow up with your primary care provider. Return to the emergency department immediately if your symptoms worsen or if you develop any dizziness, shortness of breath, difficulty breathing, chest pain, blurry vision, loss of vision, nausea, vomiting, abdominal pain, fever, chills, back pain, or any other complaints. Rory?seguimiento?con cain m?dico de atenci?n primaria. Acuda inmediatamente al servicio de urgencias si jona s?ntomas empeoran o si presenta falta de aliento, dificultad para respirar, dolor tor?cico, mareos, aturdimiento, dolor de espalda, dolor abdominal, fiebre, escalofr?os o cualquier otro s?ntoma. If you do not have a primary care provider - call any of the below numbers to establish and follow up with a primary care provider. Si no tiene un proveedor de atenci?n primaria, llame a cualquiera de los n?meros que aparecen a continuaci?n para establecer y hacer seguimiento con un proveedor de atenci?n primaria. [facility] ([place]) [phone] [place] [address], [address] [facility] Primary Care ([address] [place]) [phone] [place] [address], [address] [facility], [address] [facility] ([address] [place]) [phone] [place] [address], [address] [facility], [address] [facility] Primary [facility] ([place]) [phone] [place] [address], [address] [facility], [address] [facility] Family Medicine [phone] [place] [address], [address] Please see the information below about our Patient Portal. If you are not yet enrolled in the [facility] Patient Portal, you will receive an enrollment email invitation following your visit to any [facility] setting. You may also self-enroll in the Patient Portal by visiting our website: [email or web address] The following information is required to access the Patient Portal: - Your [facility] Medical Record Number - Your personal home email address (must match what is in your electronic medical record, Registration staff can assist with this) - Name - Date of Capabilities of the Patient Portal: - Message some providers - View upcoming appointments - Access your health summary, medical history, and visit history - View current conditions and allergies - View procedure and lab results - View your medications, including guidelines, side effects, and precautions - Complete pre-appointment questionnaires requested by your provider - Ready summary reports of your office visits and procedures To access the Patient Portal Mobile Mehran, follow these directions: - Search [employer] in the Mehran Store or Simple IT Store - Download the Mehran - Search for [facility] - Enter your login/password Portal del paciente Si usted no esta inscrito en el portal de pacientes de [facility] y [facility], recibira michael invitacion de inscripcion despues de cain visita al [facility] o al [facility] [place] [place] via correo electronico. Tambien puede inscribirse voluntariamente en el portal de pacientes visitando nuestra pagina web: [email or web address] La siguiente informacion sera requerida para acceder al portal: - Cain kim de historia medica de [facility] - Cain direccion de correo electronico personal - Nombre - Fecha de nacimiento Capacidades: Las siguientes capacidades estan disponibles en el portal de pacientes: - Enviar mensajes a algunos doctores - Verificar proximas citas - Acceso a cain historial de angel, registro medico e historial de visitas - Taya las condiciones actuales y alergias taya procedimientos y resultados del laboratorio - Taya jona medicamentos, incluyendo las pautas - Efectos secundarios y precauciones - Completar o llenar formularios / cuestionarios de - Citas solicitadas por cain doctor - Leer los resumenes de reportes medicos de jona visitas y procedimientos Fred acceder a la aplicacion movil: - Busque [employer] en la Mehran Store o Simple IT Store - Descargue la aplicacion - Busque [facility] - Ingrese cain nombre de usuario / Contrasena Prescriptions: New prednisone 20 mg tablet 40 mg PO DAILY 5 Days Qty: 10 0RF No Action (DME) Knee Support Brace Misc See Rx Instructions .ROUTE .MEDSUPPLY Qty: 1 0RF Rx Instructions: SWETA-PULL LITE, LT, L albuterol sulfate [Ventolin HFA] 90 mcg/actuation HFA aerosol inhaler 2 puff inhalation QID PRN (Reason: for wheezing) Qty: 18 6RF Breo Ellipta 200-25 mcg/dose blister with device 1 ea inhalation DAILY Qty: 60 6RF lactulose 10 gram/15 mL solution 10 g PO DAILY PRN (Reason: constipation) Qty: 237 0RF ondansetron 4 mg tablet,disintegrating 4 mg PO Q6H PRN (Reason: nausea and vomiting) Qty: 14 0RF benzonatate 200 mg capsule 200 mg PO TID PRN (Reason: cough) Qty: 15 0RF ibuprofen 600 mg tablet 600 mg PO Q6H PRN (Reason: pain) Qty: 30 0RF lidocaine 5 % adhesive patch,medicated 1 patch topical DAILY Qty: 15 0RF Rx Instructions: leave on most painful area for up to 12 hrs cyclobenzaprine 10 mg tablet 10 mg PO TID PRN (Reason: muscle spasm) Qty: 10 0RF omeprazole 20 mg capsule,delayed release(DR/EC) 20 mg PO DAILY trazodone 50 mg tablet 25 mg PO DAILY baclofen 10 mg tablet 10 mg PO DAILY lisinopril 5 mg tablet 5 mg PO DAILY atorvastatin 20 mg tablet 20 mg PO DAILY buspirone 5 mg tablet 10 mg PO BID gabapentin 100 mg capsule 100 mg PO DAILY acetaminophen [Tylenol 8 Hour] 650 mg tablet extended release 650 mg PO Q8H fluoxetine 20 mg capsule 40 mg PO QAM simethicone [Gas Relief (simethicone)] 80 mg tablet,chewable 80 mg PO Q8H PRN (Reason: gas) triamcinolone acetonide 0.1 % cream topical sucralfate 1 gram tablet 1 g PO BID metformin 500 mg tablet extended release 24 hr 500 mg PO DAILY ipratropium bromide 42 mcg (0.06 %) spray,non-aerosol 2 spray intranasal TID-QID PRN (Reason: allergy symptoms) 30 Days Qty: 15 6RF Rx Instructions: administer into each nostril prednisone 20 mg tablet 40 mg PO DAILY Qty: 14 0RF Referrals: Brooklyn Jalloh MD [Primary Care Provider, Internal Medicine] Interventions: ED Discharge Assessment Last Done: 07/22/25 11:58 Discharge Date/Time: 07/22/25 11:58 Print Language: Mongolian
[2025-07-22] MEDS: Albuterol/Iprat 2.5/0.5MG 3 ML AMPUL.NEB INHALE (09:11)
[2025-07-22 09:12] VITALS: PULSE 74; RESP 16; O2SAT 100
[2025-07-22 09:23] LABS: Hematocrit 40.5 % (37.0-47.0); Hemoglobin 13.0 g/dl (12.0-16.0); Mean Corpuscular HGB Conc 32.1 g/dl (31.0-35.0); Mean Corpuscular Hemoglobin 27.1 pg (27.0-33.0); Mean Corpuscular Volume 84.4 fL (80.0-98.0); NRBC Abs Auto 0.000 X10*3/uL (0.0-0.012); NRBC Pct Auto 0.0 /100WBC (0.0-0.2); Platelet Count 327 X10*3/uL (160-400); Red Blood Count 4.80 X10*6/uL (4.20-5.50); White Blood Count 11.3 X10*3/uL (4.8-10.8)
[2025-07-22 09:33] LABS: Alanine Aminotransferase 33 U/L (0-31); Albumin Level 4.4 g/dL (3.5-5.0); Alkaline Phosphatase 166 U/L (39-117); Anion Gap 13 (12-20); Aspartate Amino Transferase 27 U/L (5-31); Blood Urea Nitrogen 16 mg/dL (9-16); Calcium 9.3 mg/dL (8.4-10.2); Carbon Dioxide 26 mmol/L (22-29); Chloride 106 mmol/L (96-108); Creatinine Clr Calc Pharmacy 86.6; Estimated Glomerular Filt Rate > 60; Magnesium 1.9 mg/dL (1.6-2.6); Potassium 3.7 mmol/L (3.3-5.1); Sodium 141 mmol/L (135-145); Total Protein 7.3 g/dL (6.5-8.0)
[2025-07-22 09:47] VITALS: RESP 20
--- OUTSIDE RECORDS SUMMARY | 2025-07-22 09:57 | XMS_ITS | Encounter Summary ---
Author Organization [employer] Address [address] 7t [place] [address] Care Team Providers Care Engineering Lecturer Name Role Phone Brooklyn Jalloh MD Primary Care Provider [phone] Encounter Details Date Type Department Care Team (Late st Contact Info) Description 07/22/2025 Orders Only [facility] External Provider, [facility] Social History Tobacco Use Types Packs/Day Years [...] Description 07/23/2025 11:00 AM EDT Office Visit [facility] [address] [place] [address] Name, MD Raffi [address] [place] [address] 08/13/2025 11:15 AM EDT Office Visit [facility] [address] [place] [address] Brooklyn Jalloh MD [address] [place] [address] documented as of this encounter Procedures Procedure Name Priority Date/Time Associated Diagnosis Comments CBC Routine 07/22/2025 9:11 AM EDT MAGNESIUM Routine 07/22/2025 9:11 AM EDT COMPREHENSIVE METABOLIC PANEL Routine 07/22/2025 9:11 AM EDT XR CHEST 1 VIEW Routine 07/22/2025 7:52 AM EDT documented in this encounter Results * Magnesium (07/22/2025 9:11 AM EDT) Magnesium 1.9 1.6 - 2.6 mg/dL [facility] 07/22/2025 9:11 AM EDT 07/22/2025 9:15 AM EDT us Generic External Data Provider LAB BLOOD ORDERAB LES Final Result [facility] [address] [place] [phone] * (ABNORMAL) Comprehensive Metabolic Panel (07/22/2025 9:11 AM EDT) Sodium 141 135 - 145 mmol/L [facility] Potassium 3.7 3.3 - 5.1 mmol/L [facility] Chloride 106 96 - 108 mmol/L [facility] Carbon Dioxide 26 22 - 29 mmol/L [facility] Anion Gap 13 12 - 20 [facility] Urea Nitrogen (BUN) 16 9 - 16 mg/dL [facility] Creatinine, Serum 0.79 0.5 - 1.4 mg/dL [facility] Creatinine Clr Calc Pharmacy 86.6 [facility] Comment:Provided height and weight: 165.1 cm,89.1 kg.eGFR (calculated from the MDRD study equation) and eCrCl(calculated from the Cockcroft-Gault equation) are based ondifferent parameters and may not yield comparable results.If eCrCl result is absurd, please check patient'sheight/weight. Estimated Glomerular Filt Rate >60 [facility] Comment:Chronic Kidney Disea se: Estimated GFR < 60 mL/min/1.52e2Mhrnny Kidney Disease: Estimated GFR < 15 mL/min/1.73m2 Glucose 104 60 - 115 mg/dL [facility] Calcium 9.3 8.4 - 10.2 mg/dL [facility] Bilirubin, Total 0.5 0.0 - 1.0 mg/dL [facility] Aspartate Amino Transferase 27 5 - 31 U/L [facility] Alanine Aminotransferase 33(H) 0 - 31 U/L [facility] Total Protein 7.3 6.5 - 8.0 g/dL [facility] Albumin Level 4.4 3.5 - 5.0 g/dL [facility] Alkaline Phosphatase 166(H) 39 - 117 U/L [facility] 07/22/2025 9:11 AM EDT 07/22/2025 9:15 AM EDT us Generic External Data Provider LAB BLOOD ORDERAB LES Final Result [facility] [address] [place] [phone] [phone] * (ABNORMAL) CBC (07/22/2025 9:11 AM EDT) White Blood Count 11.3(H) 4.8 - 10.8 X10*3/uL [facility] Red Blood Count 4.80 4.20 - 5.50 X10*6/uL [facility] Hemoglobin 13.0 12.0 - 16.0 g/dl [facility] Hematocrit 40.5 37.0 - 47.0 % [facility] Mean Corpuscular Volume 84.4 80.0 - 98.0 fL [facility] Mean Corpuscular Hemoglobin 27.1 27.0 - 33.0 pg [facility] Mean Corpuscular HGB Conc 32.1 31.0 - 35.0 g/dl [facility] Red Cell Distribution Width 14.4 11.0 - 16.0 % [facility] Platelet Count 327 160 - 400 X10*3/uL [facility] Mean Platelet Volume 10.3 9.4 - 12.3 fL [facility] NRBC Pct Auto 0.0 0.0 - 0.2 /100WBC [facility] NRBC Abs Auto 0.000 0.0 - 0.012 X10*3/uL [facility] 07/22/2025 9:11 AM EDT 07/22/2025 9:15 AM EDT us Generic External Data Provider LAB BLOOD ORDERAB LES Final Result [facility] [address] [place] [phone] * XR Chest 1 View (07/22/2025 7:52 AM EDT) Anatomical Region Laterality Modality Chest Radiographic Zina ging 07/22/2025 7:52 AM EDT Narrative 07/22/2025 9:10 AM EDT [address] [address] XRay Report Signed Patient: Machelle Wooten MR#: [id number] : 1970 Acct:[id number] Age/Sex: 55 / F ADM Date: 07/22/25 Loc: .ED Attending Dr: Ordering Physician: Generic ED Physician Date of Service: 07/22/25 Procedure(s): XR chest 1V Accession Number(s): [id number] cc: Generic ED Physician; Brooklyn Jalloh EXAMINATION: XR CHEST CLINICAL INFORMATION: short of breath/asthma and R-upper back pain COMPARISON: July 19, 2025. TECHNIQUE: Frontal view of the chest was obtained. FINDINGS: Pulmonary reticular pattern and slight prominence on the inferior right perihilar/right middle lung lobe region. No pleural effusion. No pneumothorax. Cardiomediastinal silhouette size is normal. Mild multilevel thoracic spondylosis and a shaped curvature versus positioning. XR/XR chest 1V IMPRESSION: Questionable acute airspace disease/acute small airway inflammatory process, right middle lung lobe. Electronically signed by: Wisam Worley MD 07/22/2025 09:08 AM EDT RP Dictated By: Wisam Miranda MD Signed By: <Electronically signed by Wisam Cruz MD in OV> 07/22/25 0908 DD/ 0752 TD/TT: 07/22/25 0903 Vp Human Resources: Procedure Note Donotuseinterpreter, Image - 07/22/[address] [place] [address] XRay Report Signed Patient: Machelle WootenMR#: [id number] : 1970Acct:[id number] Age/Sex: 55 / FADM Date: 07/22/25 Loc: HO.ED Attending Dr: Ordering Physician: Generic ED Physician Date of Service: 07/22/25 Procedure(s): XR chest 1V Accession Number(s): [id number] cc: Generic ED Physician; Brooklyn Jalloh EXAMINATION: XR CHEST CLINICAL INFORMATION: short of breath/asthma and R-upper back pain COMPARISON: July 19, 2025. TECHNIQUE: Frontal view of the chest was obtained. FINDINGS: Pulmonary reticular pattern and slight prominence on the inferior right perihilar/right middle lung lobe region. No pleural effusion. No pneumothorax. Cardiomediastinal silhouette size is normal. Mild multilevel thoracic spondylosis and a shaped curvature versus positioning. XR/XR chest 1V IMPRESSION: Questionable acute airspace disease/acute small airway inflammatory process, right middle lung lobe. Electronically signed by: Wisam Worley MD 07/22/2025 09:08 AM EDT RP Dictated By: Wisam Miranda MD Signed By: <Electronically signed by Wisam Cruz MDin OV> 07/22/25 0908 DD/ 0752 TD/TT: 07/22/25 0903 Vp Human Resources: [facility] External Provider IMG XR PROCEDURES Final Result documented in this encounter Visit Diagnoses Not on filedocumented in this encounter Additional Health Concerns Assessment Noted Time PHQ-9 Depression Total Score: 14 025 12:17 PM EDT documented as of this encounter Care Teams Engineering Lecturer Relationship Specialty Start Date End Date Brooklyn Jalloh MD [address] [place] [address] PCP - General Family Medicine 07/17/21 documented as of this encounter
--- OUTSIDE RECORDS SUMMARY | 2025-07-22 09:57 | XMS_ITS | Encounter Summary ---
Author Organization [employer] Address [address] [facility] 7t [place] [address] Care Team Providers Care Bladder Blower Name Role Phone Brooklyn Jalloh MD Primary Care Provider [phone] Encounter Details Date Type Department Care Team ([facility] st Contact Info) Description 05/21/2025 Telephone [facility] [address] [place], [place] [phone] Brooklyn Jalloh MD [address] [place] [address] Social History Tobacco Use Types Packs/Day Years [...] Description 07/23/2025 11:00 AM EDT Office Visit [facility] [address] [place] [address] Name, MD Raffi [address] [place] [address] 08/13/2025 11:15 AM EDT Office Visit [address] [address] Brooklyn Jalloh MD [address] [place] [address] documented as of this encounter Visit Diagnoses Not on filedocumented in this encounter Additional Health Concerns Assessment Noted Time PHQ-9 Depression Total Score: 14 025 12:17 PM EDT documented as of this encounter Care Teams Bladder Blower Relationship Specialty Start Date End Date Brooklyn Jalloh MD [address] [place] [address] PCP - General Family Medicine 07/17/21 documented as of this encounter
--- OUTSIDE RECORDS SUMMARY | 2025-07-22 09:57 | XMS_ITS | Encounter Summary ---
Author Organization [employer] Address [address] [facility] 7t [place] [address] Care Team Providers Care Ferruler Name Role Phone Brooklyn Jalloh MD Primary Care Provider [phone] Reason for Visit * Reason Onset Date Comments Med Refill 02/04/2023 Encounter Details Date Type Department Care Team (Late st Contact Info) Description 02/04/2023 Telephone [facility] [address] [place] [address] Brooklyn Jalloh MD [address] [place] [address] Med Refill Social History Tobacco Use Types [...] 3:33 PM EDT Medications were sent to [facility] today 02/04/23. * Telephone Encounter - Ankur Villanueva - 02/04/2023 3:01 PM EDT Tc from pt requesting med refill Prednisone 20 mg Ibuprofen 800 mg Doxycycline 100 mg documented in this encounter Plan of Treatment Upcoming Encounters Date Type Department Care Team (Late st Contact Info) Description 07/23/2025 11:00 AM EDT Office Visit [facility] [address] [place] [phone] Name, MD Raffi [address] [place], [place] [phone] 08/13/2025 11:15 AM EDT Office Visit [facility] [address] [place] [address] [phone] Brooklyn Jalloh MD [address] [place] [address] [phone] documented as of this encounter Visit Diagnoses Not on filedocumented in this encounter Additional Health Concerns Assessment Noted Time PHQ-9 Depression Total Score: 6 02/05/20 23 11:27 AM EDT documented as of this encounter Care Teams Ferruler Relationship Specialty Start Date End Date Brooklyn Jalloh MD [address] [place] [address] [phone] PCP - General Family Medicine 07/17/21 documented as of this encounter
--- OUTSIDE RECORDS SUMMARY | 2025-07-22 09:57 | XMS_ITS | Encounter Summary ---
Author Organization [employer] Address [address] [facility] [address] [facility] [address] 7[address] [place] [address] Care Team Providers Care Game Room Attendant Name Role Phone Brooklyn Jalloh MD Primary Care Provider [phone] Encounter Details Date Type Department Care Team (Late st Contact Info) Description 08/26/2024 Orders Only [facility] MED[facility] [address] [place] [address] Brooklyn Jalloh MD [address] [place] [address] Elevated alkaline phosphatase level (Primary Dx) Social [...] Description 07/23/2025 11:00 AM EDT Office Visit [facility] [address] [place] [phone] Name, MD Raffi [address] [place] [address] 08/13/2025 11:15 AM EDT Office Visit [address] [address] Brooklyn Jalloh MD [address] [place] [address] documented as of this encounter Procedures Procedure Name Priority Date/Time Associated Diagnosis Comments MITOCHONDRIAL ANTIBODY WITH REFLEX TO TITER Routine 04/02/2025 11:49 AM EDT Elevated alkaline phosphatase level documented in this encounter Results * Mitochondrial Antibody with Reflex to Titer (04/02/2025 11:49 AM EDT) Mitochondrial Antibodies NEGATIVE NEGATIVE [facility] Comment:THIS TEST WAS PERFOR MED AT:[employer] [place] [phone] GRIGGS MD Mitochondrial Ab Titer TNP [facility] Blood Venous blood specimen / Unknown 04/02/2025 11:49 AM EDT 04/02/2025 1:17 PM EDT Brooklyn Jalloh MD LAB BLOOD ORDERABLES Final Res ult [facility] [address] [place] [address] [phone] documented in this encounter Visit Diagnoses Diagnosis Elevated alkaline phosphatase level- Primary documented in this encounter Additional Health Concerns Assessment Noted Time PHQ-9 Depression Total Score: 5 03/16/20 24 11:45 AM EDT documented as of this encounter Care Teams Game Room Attendant Relationship Specialty Start Date End Date Brooklyn Jalloh MD [address] [place] [address] PCP - General Family Medicine 07/17/21 documented as of this encounter
--- OUTSIDE RECORDS SUMMARY | 2025-07-22 09:57 | XMS_ITS | Encounter Summary ---
Author Organization [employer] Address [address] [facility] 7t [place] [address] Care Team Providers Care Bodily Injury Adjuster Name Role Phone Brooklyn Jalloh MD Primary Care Provider [phone] Encounter Details Date Type Department Care Team ([facility] Contact Info) Description 05/11/2023 Orders Only [facility] [address] [place] [address] [phone] Brooklyn Jalloh MD [address] [place] [address] [phone] Onychomycosis (Primary Dx) Social History Tobacco Use [...] Upcoming Encounters Date Type Department Care Team ([facility] Contact Info) Description 07/23/2025 11:00 AM EDT Office Visit [facility] [address] [place] [address] [phone] Name, MD Rfafi [address] [place] [address] 08/13/2025 11:15 AM EDT Office Visit [facility] [address] [place] [address] Brooklyn Jalloh MD [address] [place] [address] [phone] documented as of this encounter Visit Diagnoses Diagnosis Onychomycosis- Primary Dermatophytosis of nail documented in this encounter Additional Health Concerns Assessment Noted Time PHQ-9 Depression Total Score: 6 02/05/20 23 11:27 AM EDT documented as of this encounter Care Teams Bodily Injury Adjuster Relationship Specialty Start Date End Date Brooklyn Jalloh MD [address] [place] [address] [phone] PCP - General Family Medicine 07/17/21 documented as of this encounter
--- OUTSIDE RECORDS SUMMARY | 2025-07-22 09:57 | XMS_ITS | Encounter Summary ---
Author Organization [employer] Address [address] [facility] 7t [place] [address] Care Team Providers Care Well Shooter Name Role Phone Brooklyn Jalloh MD Primary Care Provider [phone] Reason for Visit * Reason Comments Med Refill Encounter Details Date Type Department Care Team (Late Contact Info) Description 07/29/2023 Refill [facility] [address] [place], [place] [phone] Brooklyn Jalloh MD [address] [place] [address] [phone] Social History Tobacco Use Types Packs/Day Years [...] Department Care Team (Late Contact Info) Description 07/23/2025 11:00 AM EDT Office Visit [facility] [address] [place] [address] [phone] Name, MD Raffi [address] [place] [address] [phone] 08/13/2025 11:15 AM EDT Office Visit [facility] [address] [place] [address] Brooklyn Jalloh MD [address] [place] [address] documented as of this encounter Visit Diagnoses Not on filedocumented in this encounter Additional Health Concerns Assessment Noted Time PHQ-9 Depression Total Score: 6 02/05/20 11:27 AM EDT documented as of this encounter Care Teams Well Shooter Relationship Specialty Start Date End Date Brooklyn Jalloh MD [address] [place] [address] PCP - General Family Medicine 07/17/21 documented as of this encounter
--- OUTSIDE RECORDS SUMMARY | 2025-07-22 09:57 | XMS_ITS | Encounter Summary ---
Author Organization [employer] Address [address] [facility] 7t [place] [address] Care Team Providers Care Econometrics Professor Name Role Phone Brooklyn Jalloh MD Primary Care Provider Reason for Visit * Reason Onset Date Comments triage 03/06/2023 Encounter Details Date Type Department Care Team ([facility] st Contact Info) Description 03/06/2023 Telephone [facility] MED[facility]INE [address] [place], [place] [phone] Brooklyn Jalloh MD [address] [place] [address] triage Social History Tobacco Use Types Packs/Day [...] 03/06/2023 3:39 PM EDT triage call with [facility] [place] [id number] Pt reports itchiness on face. Pt reports this has been for two days and has some red spots now. Pt has had this before in different areas of the body. Pt has seen horse rancher Cassie and jakob to help but doesn't know the name of the cream. Pt is offered to come to [facility] to be seen by provider but, declines. Pt wants only to have apt with horse rancher will send to PCP nurse team to [...] now The caller accepted this outcome speaks djiboutian documented in this encounter Plan of Treatment Upcoming Encounters Date Type Department Care Team (Late st Contact Info) Description 07/23/2025 11:00 AM EDT Office Visit [facility] MED[facility]INE [address] [place] [phone] Name, MD Raffi [address] [place] [address] 08/13/2025 11:15 AM EDT Office Visit [facility] [address] [place] [address] Brooklyn Jalloh MD [address] [place] [address] [phone] documented as of this encounter Visit Diagnoses Not on filedocumented in this encounter Additional Health Concerns Assessment Noted Time PHQ-9 Depression Total Score: 6 02/05/20 23 11:27 AM EDT documented as of this encounter Care Teams Econometrics Professor Relationship Specialty Start Date End Date Brooklyn Jalloh MD [address] [place] [address] [phone] PCP - General Family Medicine 07/17/21 documented as of this encounter
--- OUTSIDE RECORDS SUMMARY | 2025-07-22 09:57 | XMS_ITS | Encounter Summary ---
Author Organization [email or web address] Address [address] [facility] 7t [place] [address] Care Team Providers Care Bulk Coolers Installer Name Role Phone Brooklyn Jalloh MD Primary Care Provider [phone] Reason for Visit * Reason Onset Date Comments Appointment Request 03/19/2025 Encounter Details Date Type Department Care Team ([facility] st Contact Info) Description 03/19/2025 Telephone [facility] MEDICINE [address] [place] [address] Brooklyn Jalloh MD [address] [place] [address] Appointment Request Social History Tobacco Use Types [...] Description 07/23/2025 11:00 AM EDT Office Visit [facility] MED[facility]INE [address] [place] [phone] Name, MD Raffi [address] [place] [phone] 08/13/2025 11:15 AM EDT Office Visit [facility] [address] [place] [address] Brooklyn Jalloh MD [address] [place] [address] documented as of this encounter Visit Diagnoses Not on filedocumented in this encounter Additional Health Concerns Assessment Noted Time PHQ-9 Depression Total Score: 5 03/16/20 24 11:45 AM EDT documented as of this encounter Care Teams Bulk Coolers Installer Relationship Specialty Start Date End Date Brooklyn Jalloh MD [address] [place] [address] PCP - General Family Medicine 07/17/21 documented as of this encounter
--- OUTSIDE RECORDS SUMMARY | 2025-07-22 09:57 | XMS_ITS | Encounter Summary ---
Author Organization [employer] Address [address] [facility] [address] 7[address] [place] [address] Care Team Providers Care Axle Polisher Name Role Phone Brooklyn Jalloh MD Primary Care Provider [phone] Encounter Details Date Type Department Care Team (Late st Contact Info) Description 08/25/2024 Orders Only [facility] MED[facility]INE [address] [place] [address] Provider, MD Dipak Social History Tobacco Use [...] Description 07/23/2025 11:00 AM EDT Office Visit [facility] [address] [place] [address] [phone] Name, MD Raffi [address] [place] [address] 08/13/2025 11:15 AM EDT Office Visit [address] [phone] Brooklyn Jalloh MD [address] [place] [address] documented as of this encounter Procedures Procedure [...] documented as of this encounter Care Teams Axle Polisher Relationship Specialty Start Date End Date Brooklyn Jalloh MD [address] [place] [address] PCP - General Family Medicine 07/17/21 documented as of this encounter
--- OUTSIDE RECORDS SUMMARY | 2025-07-22 09:57 | XMS_ITS | Encounter Summary ---
Author Organization [employer] Address [address] [facility] [address] 7[address] [place] [address] Care Team Providers Care Oil Producer Name Role Phone Brooklyn Jalloh MD Primary Care Provider [phone] Encounter Details Date Type Department Care Team [...] Description 07/23/2025 11:00 AM EDT Office Visit [facility] [address] [place] [phone] Name, MD Raffi [address] [place] [address] 08/13/2025 11:15 AM EDT Office Visit [address] [address] Brooklyn Jalloh MD [address] [place] [address] documented as of this encounter Visit Diagnoses Not on filedocumented in this encounter Additional Health Concerns Assessment Noted Time PHQ-9 Depression Total Score: 14 025 12:17 PM EDT documented as of this encounter Care Teams Oil Producer Relationship Specialty Start Date End Date Brooklyn Jalloh MD [address] [place] [phone] PCP - General Family Medicine 07/17/21 documented as of this encounter
--- OUTSIDE RECORDS SUMMARY | 2025-07-22 09:57 | XMS_ITS | Encounter Summary ---
Author Organization [employer] Address 75 [facility] 7t [place] [address] Care Team Providers Care Drugless Doctor Name Role Phone Brooklyn Jalloh MD Primary Care Provider [phone] Reason for Visit * Reason Onset Date Comments Medication Question 08/20/2024 Results 08/20/2024 Encounter Details Date Type Department Care Team ([facility] st Contact Info) Description 08/20/2024 Telephone [facility] MEDICINE [address] [place] [address] Brooklyn Jalloh MD [address] [place], [place] [phone] Medication Question; Results Social History Tobacco Use [...] 2:40 PM EDT TC placed to pt [phone] via [employer] in regards to below message. RN informed [...] - 08/20/2024 3:47 PM EDT Noted. Per [employer], shoulder Xray performed on 08/11/24 however interpretation [...] BW. Pt verbalized understanding. Pt also requesting [id number]-[id number]-[id number] medication be Rx'd again for her migraines. [...] results: Labs Date when done: 08/18/24 Facility: [facility] Labs Pt is also requesting Eletriptan medication for migraines but development writer did not see medication on med list. Please contact pt at [phone]. (Maori Speaker) documented in this encounter Plan of Treatment Upcoming Encounters Date Type Department Care Team (Late st Contact Info) Description 07/23/2025 11:00 AM EDT Office Visit [facility] MEDICINE [address] [place] [phone] Name, MD Raffi [address] [place] [phone] 08/13/2025 11:15 AM EDT Office Visit [address] [address] Brooklyn Jalloh MD [address] [place] [phone] documented as of this encounter Visit Diagnoses Not on filedocumented in this encounter Additional Health Concerns Assessment Noted Time PHQ-9 Depression Total Score: 5 03/16/20 24 11:45 AM EDT documented as of this encounter Care Teams Drugless Doctor Relationship Specialty Start Date End Date Brooklyn Jalloh MD [address] [place] [phone] PCP - General Family Medicine 07/17/21 documented as of this encounter
--- OUTSIDE RECORDS SUMMARY | 2025-07-22 09:57 | XMS_ITS | Encounter Summary ---
Author Organization [employer] Address [address] [facility] 7t [place] [address] Care Team Providers Care Economics Teacher Name Role Phone Brooklyn Jalloh MD Primary Care Provider [phone] Reason for Visit * Reason Comments Med Refill Encounter Details Date Type Department Care Team ([facility] st Contact Info) Description 05/18/2025 Refill [facility] [address] [place] [address] Brooklyn Jalloh MD [address] [place] [address] Social History Tobacco Use Types Packs/Day Years [...] Description 07/23/2025 11:00 AM EDT Office Visit [facility] [address] [place] [address] Name, MD Raffi [address] [place] [address] 08/13/2025 11:15 AM EDT Office Visit [facility] [address] [place] [address] Brooklyn Jalloh MD [address] [place] [address] documented as of this encounter Visit Diagnoses Not on filedocumented in this encounter Additional Health Concerns Assessment Noted Time PHQ-9 Depression Total Score: 14 025 12:17 PM EDT documented as of this encounter Care Teams Economics Teacher Relationship Specialty Start Date End Date Brooklyn Jalloh MD [address] [place] [address] PCP - General Family Medicine 07/17/21 documented as of this encounter
--- OUTSIDE RECORDS SUMMARY | 2025-07-22 09:57 | XMS_ITS | Encounter Summary ---
Author Organization [employer] Address [address] [facility] 7t [place] [address] Care Team Providers Care Overcoil Stepper Name Role Phone Brooklyn Jalloh MD Primary Care Provider [phone] Encounter Details Date Type Department Care Team ([facility] st Contact Info) Description 03/19/2025 Orders Only [facility] [address] [place] [address] Brooklyn Jalloh MD [address] [place] [address] Contact with and (suspected) exposure to infections [...] Description 07/23/2025 11:00 AM EDT Office Visit [facility] [address] [place] [address] Name, MD Raffi [address] [place] [address] 08/13/2025 11:15 AM EDT Office Visit [facility] [address] [place] [address] Brooklyn Jalloh MD [address] [place] [address] documented as of this encounter Procedures Procedure [...] Results * T-SPOT??.TB (04/02/2025 11:49 AM EDT) [facility] T Spot TB Negative Negative [facility] Comment:A negative test resu lt [...] as aquantitative test. TS PANEL A 0 [facility] TS PANEL B 0 [facility] Negative Control Passed [facility] Positive Control Passed [facility] Comment:For additional infor luke, please refer tohttp://education.Practice Fusion/faq/FVQ771(This link is being provided for informational/educational purposes only.)THIS TEST WAS PERFORMED AT:[id number] [place] [address]NTFDIFRMARY SNOW MD,PHD 04/02/2025 11:4 9 AM EDT 04/02/2025 1:07 PM EDT us Brooklyn Jalloh MD LAB BLOOD ORDERABLES Final Res ult Performing Organization Address [facility] Co de Phone Number [facility] [address] [place] [address] [phone] * Hepatitis C Antibody with Reflex to HCV, RNA, Quantitative, Real-Time PCR (04/02/2025 11:49 AM EDT) Hepatitis C Antibody Nonreactive Nonreactive [facility] Comment:Antibodies to HCV no t detected; does not exclude early acuteHCV infection. Blood Venous blood specimen / Unknown 04/02/2025 11:49 AM EDT 04/02/2025 1:17 PM EDT us Brooklyn Jalloh MD LAB BLOOD ORDERABLES Final Res ult Performing Organization Address [facility] Co de Phone Number [facility] [address] [place] [phone] * HIV-1/2 Antigen and Antibodies, Fourth Generation, with Reflexes (04/02/2025 11:49 AM EDT) HIV AB/AG Nonreactive Nonreactive [facility] Comment:HIV-1 p24 Ag and/or HIV-1/HIV-2 Ab not detected.A test result that is nonreactive does not exclude thepossibility of exposure to or infection with HIV-1 and/orHIV-2. Nonreactive results in this assay for individualswith prior exposure to HIV-1 and/or HIV-2 may be due toantigen and antibody levels that are below the limit ofdetection of this assay.[employer] HIV Ag/Ab Combo assay result andsupplemental assay results should be interpreted inconjunction with the patient's clinical presentation,history and other laboratory results. If the results areinconsistent with clinical evidence, additional testing issuggested to confirm the result. Blood Venous blood specimen / Unknown 04/02/2025 11:49 AM EDT 04/02/2025 1:17 PM EDT us Brooklyn Jalloh MD LAB BLOOD ORDERABLES Final Res ult [facility] [address] [place] [phone] [phone] documented in this encounter Visit Diagnoses Diagnosis Contact with and (suspected) exposure to infections with a predominantly sexual mode of transmission- Primary documented in this encounter Additional Health Concerns Assessment Noted Time PHQ-9 Depression Total Score: 5 03/16/20 24 11:45 AM EDT documented as of this encounter Care Teams Overcoil Stepper Relationship Specialty Start Date End Date Brooklyn Jalloh MD [address] [place] [address] PCP - General Family Medicine 07/17/21 documented as of this encounter
--- OUTSIDE RECORDS SUMMARY | 2025-07-22 09:57 | XMS_ITS | Encounter Summary ---
Author Organization [employer] Address 75 [facility] 7t [place] [address] Care Team Providers Care Slicing Machine Operator Name Role Phone Brooklyn Jalloh MD Primary Care Provider [phone] Encounter Details Date Type Department Care Team (Late Contact Info) Description 07/23/2023 Abstract [facility] [address] [place] [address] [phone] Brooklyn Jalloh MD [address] [place] [address] [phone] Social History Tobacco Use Types Packs/Day Years [...] Description 07/23/2025 11:00 AM EDT Office Visit [facility] [address] [place] [address] [phone] Raffi Mendoza MD [address] [place] [address] [phone] 08/13/2025 11:15 AM EDT Office Visit [facility] [address] [place] [address], [place] [address] Brooklyn Jalloh MD [address] [place] [address] documented as of this encounter Visit Diagnoses Not on filedocumented in this encounter Additional Health Concerns Assessment Noted Time PHQ-9 Depression Total Score: 6 02/05/20 23 11:27 AM EDT documented as of this encounter Care Teams Slicing Machine Operator Relationship Specialty Start Date End Date Brooklyn Jalloh MD [address] [place] [address] PCP - General Family Medicine 07/17/21 documented as of this encounter
--- OUTSIDE RECORDS SUMMARY | 2025-07-22 09:57 | XMS_ITS | Encounter Summary ---
Author Organization [employer] Address 75 [facility] 7t [place] [address] Care Team Providers Care Travel Agency Manager Name Role Phone Brooklyn Jalloh MD Primary Care Provider Reason for Visit * Reason Onset Date Comments Durable Medical Equipment 02/07/2023 Encounter Details Date Type Department Care Team (Late st Contact Info) Description 02/07/2023 Telephone [facility] [address] [place] [address] Brooklyn Jalloh MD [address] [place] [address] Durable Medical Equipment Social History Tobacco Use [...] status on walker please contact pt at [phone]. documented in this encounter Plan of Treatment Upcoming Encounters Date Type Department Care Team (Late st Contact Info) Description 07/23/2025 11:00 AM EDT Office Visit [facility] [address] [place] [address] Name, MD Raffi [address] [place] [address] 08/13/2025 11:15 AM EDT Office Visit [address] [address] Brooklyn Jalloh MD [address] [place] [address] documented as of this encounter Visit Diagnoses Not on filedocumented in this encounter Additional Health Concerns Assessment Noted Time PHQ-9 Depression Total Score: 6 02/05/20 23 11:27 AM EDT documented as of this encounter Care Teams Travel Agency Manager Relationship Specialty Start Date End Date Brooklyn Jalloh MD [address] [place] [phone] PCP - General Family Medicine 07/17/21 documented as of this encounter
--- OUTSIDE RECORDS SUMMARY | 2025-07-22 09:57 | XMS_ITS | Encounter Summary ---
Author Organization [employer] Address 75 [facility] 7t [place] [address] Care Team Providers Care Security Intern Name Role Phone Brooklyn Jalloh MD Primary Care Provider [phone] Encounter Details Date Type Department Care Team (Late st Contact Info) Description 01/28/2023 Orders Only [facility] [address] [place] [address] Sarika Jenkins CNM [address] [place] [address] Candidiasis of vulva and vagina (Primary Dx) [...] Description 07/23/2025 11:00 AM EDT Office Visit [address] [address] Name, MD Raffi [address] [place] [address] 08/13/2025 11:15 AM EDT Office Visit [facility] [address] [place] [address] [phone] Brooklyn Jalloh MD [address] [place] [address] documented as of this encounter Visit Diagnoses Diagnosis Candidiasis of vulva and vagina- Primary documented in this encounter Care Teams Security Intern Relationship Specialty Start Date End Date Brooklyn Jalloh MD [address] [place] [address] [phone] PCP - General Family Medicine 07/17/21 documented as of this encounter
--- OUTSIDE RECORDS SUMMARY | 2025-07-22 09:57 | XMS_ITS | Encounter Summary ---
Author Organization [employer] Address [address] [facility] 7t [place] [address] Care Team Providers Care Software Administrator Name Role Phone Brooklyn Jalloh MD Primary Care Provider [phone] Encounter Details Date Type Department Care Team ([facility] Contact Info) Description 03/07/2023 Orders Only [facility] [address] [place] [address] [phone] Brooklyn Jalloh MD [address] [place] [address] [phone] Rash of face (Primary Dx) Social History [...] Upcoming Encounters Date Type Department Care Team ([facility] Contact Info) Description 07/23/2025 11:00 AM EDT Office Visit [facility] [address] [place] [address] [phone] Name, MD Raffi [address] [place] [address] 08/13/2025 11:15 AM EDT Office Visit [facility] [address] [place] [address] Brooklyn Jalloh MD [address] [place] [address] [phone] documented as of this encounter Visit Diagnoses Diagnosis Rash of face- Primary documented in this encounter Additional Health Concerns Assessment Noted Time PHQ-9 Depression Total Score: 6 02/05/20 23 11:27 AM EDT documented as of this encounter Care Teams Software Administrator Relationship Specialty Start Date End Date Brooklyn Jalloh MD [address] [place] [address] [phone] PCP - General Family Medicine 07/17/21 documented as of this encounter
--- OUTSIDE RECORDS SUMMARY | 2025-07-22 09:57 | XMS_ITS | Encounter Summary ---
Author Organization [employer] Address [address] [facility] 7t [place] [address] Care Team Providers Care Special Education Para Professional Name Role Phone Brooklyn Jalloh MD Primary Care Provider [phone] Reason for Visit * Reason Onset Date Comments Referral 05/10/2023 Encounter Details Date Type Department Care Team ([facility] st Contact Info) Description 05/10/[address] [facility] [address] [place], [place] [phone] Brooklyn Jalloh MD [address] [place] [address] Referral Social History Tobacco Use Types Packs/Day [...] to her toenails. Please contact pt at [phone] Cymro Speaker documented in this encounter Plan of Treatment Upcoming Encounters Date Type Department Care Team (Late st Contact Info) Description 07/23/2025 11:00 AM EDT Office Visit [address] [address] Name, MD Raffi [address] [place] [address] 08/13/2025 11:15 AM EDT Office Visit [address] [address] Brooklyn Jalloh MD [address] [place] [address] [phone] documented as of this encounter Visit Diagnoses Not on filedocumented in this encounter Additional Health Concerns Assessment Noted Time PHQ-9 Depression Total Score: 6 02/05/20 23 11:27 AM EDT documented as of this encounter Care Teams Special Education Para Professional Relationship Specialty Start Date End Date Brooklyn Jalloh MD [address] [place] [phone] PCP - General Family Medicine 07/17/21 documented as of this encounter
--- OUTSIDE RECORDS SUMMARY | 2025-07-22 09:57 | XMS_ITS | Clinical Summary ---
Author Organization [employer] Address [address] [facility] [address] [place] [address] Care Team Providers Care Air Carrier Maintenance Inspector Name Role Phone Brooklyn Jalloh MD Primary Care Provider [phone] Allergies Active Allergy Reactions Criticality Noted Date [...] Active Respiratory Therapy Supplies (Adult Aerosol Mask) [facility] USE DIRECTED WITH NEBULIZER 023 Active docusate [...] CRUSH, DISSOLVE OR CHEW 025 2024 Discontinued loratadine (Claritin) 10 MG [...] (08/12/2024 11:39 AM EDT): Continue followup with [facility] for viscosupplementation Assessment & Plan (02/13/2023 [...] EDT): Diet controlled Will start going to [facility] with her daughter as well Anxiety [...] and rest Moderate persistent asthma with exacerbation 02/07/2023 Assessment & Plan (02/05/2023 1:36 PM [...] Encounters Date Type Department Care Team Description 07/22/2025 Orders Only [facility] External Provider, [facility] 07/20/2025 Telephone [facility] [address] [place] [phone] Brooklyn Jalloh MD Referral 07/19/2025 1:40 PM EDT Office Visit [facility] [address] [place] [phone] Zhane Gandhi MD Chronic cough (Primary Dx); Viral URI 07/19/2025 Travel 07/13/2025 1:40 PM EDT Office Visit [facility] [address] [place] [phone] Lida Francisco MD Lower abdominal pain; Acute left-sided low back pain, unspecified whether sciatica present 07/13/2025 Travel 07/11/2025 Refill [facility] [address] [place] [phone] Brooklyn Jalloh MD Biliary colic 07/06/2025 2:40 PM EDT Office Visit [facility] [address] [address] Zhane Gandhi MD Subacute cough (Primary Dx); Postnasal drip 07/06/2025 Travel 06/29/2025 Refill [facility] [address] [place] [phone] Brooklyn Jalloh MD Constipation, unspecified constipation type 06/26/2025 10:00 AM EDT Office Visit [facility] [address] [address] Brooklyn Jalloh MD Bronchitis (Primary Dx); Sore throat; COPD with acute exacerbation ([facility]) 06/26/2025 Travel 06/21/2025 Refill [facility] [address] [place] [address] Raffi Mendoza MD Cough in adult patient 05/22/2025 9:20 AM EDT Office Visit [facility] [address] [place] [phone] Shayy Ashraf, MEE Mild persistent asthma, unspecified whether complicated (Primary Dx) 05/22/2025 Travel 05/21/2025 4:00 PM EDT Office Visit [facility] [address] [place] [address] Shayy Ashraf NP Sore throat (Primary Dx); Moderate persistent asthma, unspecified whether complicated 05/21/2025 Telephone [facility] [address] [place] [address] Brokolyn Jalloh MD 05/21/[address] [address] Brooklyn Jalloh MD Results 05/18/2025 Refill [facility] [address] [place] [address] Brooklyn Jalloh MD 05/17/2025 3:00 PM EDT Office Visit [facility] [address] [place] [address] Ludy Knutson MD Oropharyngeal candidiasis (Primary Dx); COPD with acute exacerbation (CMS/HCC); Screening examination for STI; Pharyngitis, unspecified etiology 05/17/2025 Orders Only [address] [address] Ludy Knutson MD 05/17/2025 Travel 05/10/2025 Travel 05/07/2025 11:15 AM EDT Office Visit [address] [address] Brooklyn Jalloh MD Primary hypertension (Primary Dx); Prediabetes; Generalized anxiety disorder; Depression, recurrent (CMS/HCC); Calcific tendonitis of right shoulder; Fibromyalgia; Elevated alkaline phosphatase level 05/07/2025 10:00 AM EDT Office Visit [facility] [address] [place] [address] Javad Neville DDS 05/07/2025 Travel 05/06/[address] [address] Brooklyn Jalloh MD chart prep 05/01/[address] [address] Brooklyn Jalloh MD 04/30/2025 2:00 PM EDT Office Visit [facility] [address] [place] [address] Javad Neville, INESSA 04/28/2025 Patient Outreach [facility] [address] [place] [address] Brooklyn Jalloh MD Pre-visit Planning (SDOH screening completed on 01/26/2025) 04/26/2025 10:15 AM EDT Office Visit [facility] [address] [place] [address] Keily Foreman CNM Atrophic vaginitis (Primary Dx) 04/26/2025 Travel 04/23/2025 Telephone [facility] [address] [place] [address] Keily Foreman CNM chart prep 04/22/2025 Refill [facility] [address] [place] [address] Brooklyn Jalloh MD from Last 3 Months [...] Description 07/23/2025 11:00 AM EDT Office Visit [facility] [address] [place] [phone] Name, MD Raffi [address] [place] [phone] 08/13/2025 11:15 AM EDT Office Visit [facility] [address] [place] [address] [phone] Brooklyn Jalloh MD [address] [place], [place] [phone] Health Maintenance Due Date Last Done Comments [...] Additional history exists Dental X-Ray: Bitewings 05/08/2026 05/07/20, 08/24/2024, 10/01/2023 Tobacco Screening 07/13/2026 07/13/2025 Dental [...] Procedure Name Priority Date/Time Associated Diagnosis Comments MAGNESIUM Routine 07/22/2025 9:11 AM EDT COMPREHENSIVE METABOLIC PANEL Routine 07/22/2025 9:11 AM EDT CBC Routine 07/22/2025 9:11 AM EDT XR CHEST 1 VIEW Routine 07/22/2025 7:52 AM EDT POCT INFLUENZA B (ID NOW RAPID MOLECULAR) [...] FOCUSED Routine 04/30/2025 2:00 PM EDT 9 MT RESIN-BASED COMPOSITE - 2 SURF, ANTERIOR Routine 04/30/2025 2:00 PM EDT 8 MT RESIN-BASED COMPOSITE - 2 SURF, ANTERIOR Routine [...] Recently Relevant to Health Maintenance Results * (ABNORMAL) CBC (07/22/2025 9:11 AM EDT) White Blood Count 11.3(H) 4.8 - 10.8 X10*3/uL [facility] Red Blood Count 4.80 4.20 - 5.50 X10*6/uL [facility] Hemoglobin 13.0 12.0 - 16.0 g/dl [facility] Hematocrit 40.5 37.0 - 47.0 % [facility] Mean Corpuscular Volume 84.4 80.0 - 98.0 fL [facility] Mean Corpuscular Hemoglobin 27.1 27.0 - 33.0 pg [facility] Mean Corpuscular HGB Conc 32.1 31.0 - 35.0 g/dl [facility] Red Cell Distribution Width 14.4 11.0 - 16.0 % [facility] Platelet Count 327 160 - 400 X10*3/uL [facility] Mean Platelet Volume 10.3 9.4 - 12.3 fL [facility] NRBC Pct Auto 0.0 0.0 - 0.2 /100WBC [facility] NRBC Abs Auto 0.000 0.0 - 0.012 X10*3/uL [facility] 07/22/2025 9:11 AM EDT 07/22/2025 9:15 AM EDT us Generic External Data Provider LAB BLOOD ORDERAB LES Final Result [facility] [address] [place] [phone] * Magnesium (07/22/2025 9:11 AM EDT) Magnesium 1.9 1.6 - 2.6 mg/dL [facility] 07/22/2025 9:11 AM EDT 07/22/2025 9:15 AM EDT us Generic External Data Provider LAB BLOOD ORDERAB LES Final Result [facility] [address] [place] [phone] [phone] * (ABNORMAL) Comprehensive Metabolic Panel (07/22/2025 9:11 AM EDT) Sodium 141 135 - 145 mmol/L [facility] Potassium 3.7 3.3 - 5.1 mmol/L [facility] Chloride 106 96 - 108 mmol/L [facility] Carbon Dioxide 26 22 - 29 mmol/L [facility] Anion Gap 13 12 - 20 [facility] Urea Nitrogen (BUN) 16 9 - 16 mg/dL [facility] Creatinine, Serum 0.79 0.5 - 1.4 mg/dL [facility] Creatinine Clr Calc Pharmacy 86.6 [facility] Comment:Provided height and weight: 165.1 cm,89.1 kg.eGFR (calculated from the MDRD study equation) and eCrCl(calculated from the Cockcroft-Gault equation) are based ondifferent parameters and may not yield comparable results.If eCrCl result is absurd, please check patient'sheight/weight. Estimated Glomerular Filt Rate >60 [facility] Comment:Chronic Kidney Disea se: Estimated GFR < 60 mL/min/1.38r2Xulxts Kidney Disease: Estimated GFR < 15 mL/min/1.73m2 Glucose 104 60 - 115 mg/dL [facility] Calcium 9.3 8.4 - 10.2 mg/dL [facility] Bilirubin, Total 0.5 0.0 - 1.0 mg/dL [facility] Aspartate Amino Transferase 27 5 - 31 U/L [facility] Alanine Aminotransferase 33(H) 0 - 31 U/L [facility] Total Protein 7.3 6.5 - 8.0 g/dL [facility] Albumin Level 4.4 3.5 - 5.0 g/dL [facility] Alkaline Phosphatase 166(H) 39 - 117 U/L [facility] 07/22/2025 9:11 AM EDT 07/22/2025 9:15 AM EDT us Generic External Data Provider LAB BLOOD ORDERAB LES Final Result [facility] [address] [place] [phone] * XR Chest 1 View (07/22/2025 7:52 AM EDT) Anatomical Region Laterality Modality Chest Radiographic Zina ging 07/22/2025 7:52 AM EDT Narrative 07/22/2025 9:10 AM EDT [address] [address] XRay Report Signed Patient: Machelle Wooten MR#: [id number] : 1970 Acct:[id number] Age/Sex: 55 / F ADM Date: 07/22/25 Loc: .ED Attending Dr: Ordering Physician: Generic ED Physician Date of Service: 07/22/25 Procedure(s): XR chest 1V Accession Number(s): [id number] cc: Generic ED Physician; Brooklyn Jalloh EXAMINATION: [...] 09:08 AM EDT RP Dictated By: Wisam iMranda MD Signed By: <Electronically signed by Wisam Cruz MD in OV> 07/22/25 0908 DD/ 0752 TD/TT: 07/22/25 0903 Preparation Supervisor Canning: Procedure Note Donotuseinterpreter, Image - 07/22/[address] [address] XRay Report Signed Patient: Machelle WootenMR#: [id number] : 1970Acct:[id number] Age/Sex: 55 / FADM Date: 07/22/25 Loc: .ED Attending Dr: Ordering Physician: Generic ED Physician Date of Service: 07/22/25 Procedure(s): XR chest 1V Accession Number(s): [id number] cc: Generic ED Physician; Brooklyn Jalloh EXAMINATION: [...] 07/22/25 0908 DD/ 0752 TD/TT: 07/22/25 0903 Preparation Supervisor Canning: [facility] External Provider IMG XR PROCEDURES Final Result * Influenza B (ID NOW Rapid Molecular) (07/19/2025 1:59 PM EDT) Only the most recent of2 resultswithin the time period is included. Influenza B Negative Negative, Indeterminate [facility] Swab 07/19/2025 1:59 PM EDT Zhane Gandhi MD POINT OF CARE TEST ENTER/EDIT ORDERABLES Final Result Performing Organization Address City/[facility]/ZIP Co de Phone Number [facility] [address] [place] [phone] * Influenza A (ID NOW Rapid Molecular) (07/19/2025 1:59 PM EDT) Only the most recent of2 resultswithin the time period is included. Pathologist [facility] Influenza A Negative Negative, Indeterminate [facility] Swab 07/19/2025 1:59 PM EDT Zhane Gandhi MD POINT OF CARE TEST ENTER/EDIT ORDERABLES Final Result Performing Organization Address [facility] Co de Phone Number [facility] [address] [place] [phone] * POCT Rapid COVID Ag (07/19/2025 1:59 PM EDT) Pathologist [facility] Rapid COVID Ag Negative [facility] Swab 07/19/2025 1:59 PM EDT Zhane Gandhi MD POINT OF CARE TEST ENTER/EDIT ORDERABLES Final Result Performing Organization Address [facility] Co de Phone Number [facility] [address] [place] [phone] * XR Chest 2 Views (07/19/2025 1:29 PM EDT) Anatomical Region Laterality Modality Chest Radiographic Zina ging 07/19/2025 1:29 PM EDT Narrative 07/19/2025 2:36 PM EDT [facility] [address] [place] [address] XRay Report Signed Patient: Machelle Wooten MR#: [id number] : 1970 Acct:[id number] Age/Sex: 55 / F ADM Date: 07/19/25 Loc: HOGilmaCX Attending Dr: Zhane Gandhi MD Ordering Physician: Zhane Gandhi MD Date of Service: 07/19/25 Procedure(s): XR chest 2V Accession Number(s): [id number] cc: Zhane Gandhi MD EXAMINATION: XR CHEST [...] 07/19/25 1433 DD/ 1329 TD/TT: 07/19/25 1400 Preparation Supervisor Canning: Procedure Note Donotuseinterpreter, Image - 07/19/2025 [facility] [address] [place] [address] XRay Report Signed Patient: Machelle WootenMR#: [id number] : 1970Acct:[id number] Age/Sex: 55 / FADM Date: 07/19/25 Loc: .CX Attending Dr: Zhane Gandhi MD Ordering Physician: Zhane Gandhi MD Date of Service: 07/19/25 Procedure(s): XR chest 2V Accession Number(s): [id number] cc: Zhane Gandhi MD EXAMINATION: XR CHEST [...] 07/19/25 1433 DD/ 1329 TD/TT: 07/19/25 1400 Preparation Supervisor Canning: us Zhane Gandhi MD IMG XR PROCEDURES Final Resul t * Culture, Urine, Routine (07/13/2025 1:40 PM EDT) Urine Urine specimen obtained by clean catch procedure / Unknown 07/13/2025 1:40 PM EDT 07/13/2025 4:41 PM EDT Comment:UACC Narrative [facility] - 07/15/2025 8:46 AM EDT Urine Culture Report Result Urine Culture < 10,000 cfu/ml Specimen Source: Urine clean catch us Lida Mackenzie MD LAB MICROBIOLOGY - [facility] ORDERABLES Final Result [facility] [address] [place] [phone] * POCT urinalysis dipstick manually resulted (07/13/2025 [...] Date 53,126 Urine 07/13/2025 1:30 PM EDT Lida Mackenzie MD POINT OF CARE TEST EN TER/EDIT ORDERABLES Final Result * POCT Rapid Covid-19 CANO ID NOW (06/26/2025 10:41 AM EDT) Pathologist [facility] Coronavirus Antigen PCR Negative Negative, Indeterminate, None Detected, Invalid, Specimen unsatisfactory for evaluation, Weakly Positive, 2+ QC Media Lot # [id number] Lot# Expiration Date Swab 06/26/2025 10:4 1 AM EDT Result [facility] Brooklyn Jalloh MD POINT OF CARE TEST ENTER/EDIT ORDERABLES Final Result * POCT Rapid Strep A CANO ID NOW (06/26/2025 10:26 AM EDT) Pathologist [facility] Rapid Strep A Screen Negative Negative, None Detected QC Media Lot # [id number] Lot# Expiration Date Swab 06/26/2025 10:2 6 AM EDT Result [facility] Brooklyn Jalloh MD POINT OF CARE TEST ENTER/EDIT ORDERABLES Final Result * Chlamydia/N. Gonorrhoeae RNA, TMA, Throat (05/21/2025 3:58 PM EDT) Only the most recent of2 resultswithin the time period is included. Pathologist [facility] C. Trachomatis RNA TMA, Throat NOT DETECTED [facility] N. gonorrhoeae RNA TMA, Throat NOT DETECTED [facility] Comment:REFERENCE RANGE: NOT DETECTEDMethodology: Ritual Circumciser Mediated Amplification (TMA) to detect RNA.The analytical performance characteristics of this assayhave been determined by [employer]. The modificationshave not been cleared or approved by the FDA. This assay hasbeen validated pursuant to the CLIA regulations and is usedfor clinical purposes.For additional information, please refer tohttps://education.[employer]/faq/OAD416(This link is being provided for informational/educationalpurposes only.)THIS TEST WAS PERFORMED AT:[employer] [id number] [place] [address]HJUPEBARBARA COMBS MD,PHD,ISRRAEL Swab Structure of anterior portion of neck / Unknown 05/21/2025 3:58 PM EDT 05/21/2025 5:32 PM EDT Shayy Ashraf JEWISH HISTORY PROFESSOR LAB MICROBIOLOGY - GENERAL ORDER [place] Final Result [facility] [address] [place] [address] [phone] * (ABNORMAL) POCT HGB A1C (05/07/2025 12:15 PM EDT) Pathologist [facility] Hemoglobin A1C 6.1(A) 4.0 - 6.0 % QC Media Lot # [id number] Blood 05/07/2025 12:1 5 PM EDT Result [facility] Brooklyn Jalloh MD POINT OF CARE TEST ENTER/EDIT ORDERABLES Final Result * POCT Glucose (05/07/2025 12:13 PM EDT) Pathologist [facility] Glucose Blood, POC 126 60 - 200 mg/dL QC Media Lot # [id number] Lot# Expiration Date 82,342 Blood Capillary blood specimen / Unknown 05/07/2025 12:13 PM EDT Result [facility] Brooklyn Jalloh MD POINT OF CARE TEST ENTER/EDIT ORDERABLES Final Result * Hepatitis C Antibody with Reflex to HCV, RNA, Quantitative, Real-Time PCR (04/02/2025 11:49 AM EDT) Pathologist [facility] Hepatitis C Antibody Nonreactive Nonreactive [facility] Comment:Antibodies to HCV no t detected; does not exclude early acuteHCV infection. Blood Venous blood specimen / Unknown 04/02/2025 11:49 AM EDT 04/02/2025 1:17 PM EDT us Brooklyn Jalloh MD LAB BLOOD ORDERABLES Final Res ult Performing Organization Address [facility] Co de Phone Number [facility] [address] [place] [phone] * HIV-1/2 Antigen and Antibodies, Fourth Generation, with Reflexes (04/02/2025 11:49 AM EDT) HIV AB/AG Nonreactive Nonreactive [facility] Comment:HIV-1 p24 Ag and/or HIV-1/HIV-2 Ab not detected.A test result that is nonreactive does not exclude thepossibility of exposure to or infection with HIV-1 and/orHIV-2. Nonreactive results in this assay for individualswith prior exposure to HIV-1 and/or HIV-2 may be due toantigen and antibody levels that are below the limit ofdetection of this assay.The [employer] HIV Ag/Ab Combo assay result andsupplemental assay results should be interpreted inconjunction with the patient's clinical presentation,history and other laboratory results. If the results areinconsistent with clinical evidence, additional testing issuggested to confirm the result. Blood Venous blood specimen / Unknown 04/02/2025 11:49 AM EDT 04/02/2025 1:17 PM EDT us Brooklyn Jalloh MD LAB BLOOD ORDERABLES Final Res ult Performing Organization Address [facility]/ZIP Co de Phone Number [facility] [address] [place] [phone] * Pap Smear (03/30/2025 12:07 PM EDT) Swab 03/30/2025 12:0 7 PM EDT 03/31/2025 6:00 AM EDT Narrative [facility] - 04/02/2025 12:35 PM EDT ----- ------- Name: Machelle Wooten Age/Sex: 55/F : 1970 Unit#: [id number] Attend Dr: KEILY FOREMAN [facility] Re03/30/25 Status: DEP [facility] ------- SPEC : [id number] RECD: 03/31/25 STATUS: FAMBobby MARY NUM: [id number] KRYSTA: 03/30/25-[address] [facility] [address]: KEILY FOREMAN [facility] ENTERED: 03/31/25 SP TYPE: Pap Smr OT DR: ORDERED: Pap Smear Interpretation Satisfactory for evaluation. Negative for intraepithelial lesion or malignancy. No endocervical cells seen. HPV High Risk: Negative HPV Genotyping 16: Negative HPV Genotyping 18: Negative Clinical Information LMP:Unknown date Previous PAP test:2018 Material Received ThinPrep-Cervical ----- ------- Signed (signature on file) YAMILETH Torres (ASCP) 04/02/25 1235 ----- ------- END OF REPORT [facility] CYTOLOGY ORDERABLES F inal Result Performing Organization Address [facility]/ZIP Co de Phone Number [facility] [address] [place] [phone] [phone] * HPV DNA, Low/High Risk (03/30/2025 12:00 AM EDT) [facility] HPV High Risk Negative Negative [facility] HPV Genotype 16 Negative Negative [facility] HPV Genotype 18 Negative Negative [facility] Comment:HPV testing performe d at [facility] (CLIA#[id number]), [address] [place] [address].Testing for HPV was performed using the [employer] MOOKIE 6800system. The presence of HPV in the female [...] 03/30/2025 03/31/2025 6:0 0 AM EDT Keily Foreman [facility] LAB BLOOD ORDERABLES Julianne l Result Performing Organization Address [facility]/ZIP Co de Phone Number [facility] [address] [place] [phone] * BI US Breast Limited Right (08/18/2024) Anatomical Region Laterality Modality Breast Right Ultrasound Lilian Holcomb TECHNICAL DESIGNER IMG US PROCEDURES Final Result * (ABNORMAL) [...] LDL-C. Mitch SS et al. ARACELI. 2013;310(19): 2918-2717 (http://education.[employer]/faq/WTK635) Non-HDL Cholesterol 117 <130 mg/dL (calc) CONVERTED [...] Most Recently Relevant to Health Maintenance [place] [facility] ONE CARE < [facility] Care Teams Air Carrier Maintenance Inspector Relationship Specialty Start Date End Date Brooklyn Jalloh MD [address] [place] [address] PCP - General Family Medicine 07/17/21
--- OUTSIDE RECORDS SUMMARY | 2025-07-22 09:57 | XMS_ITS | Encounter Summary ---
Author Organization [employer] Address [address] [facility] [address] [place] [address] Care Team Providers Care Talent Acquisition Coordinator Name Role Phone Brooklyn Jalloh MD Primary Care Provider [phone] Reason for Visit * Reason Onset Date Comments Medication Question 11/19/2024 Encounter Details Date Type Department Care Team ([facility] st Contact Info) Description 11/19/2024 Telephone [facility] [address] [place] [address] Brooklyn Jalloh MD [address] [place] [address] Medication Question Social History Tobacco Use Types [...] 11:00 AM EDT Office Visit [facility] [address] [place] [phone] Name, MD Raffi [address] [place] [phone] 08/13/2025 11:15 AM EDT Office Visit [facility] [address] [place] [phone] Brooklyn Jalloh MD [address] [place] [phone] documented as of this encounter Visit Diagnoses Not on filedocumented in this encounter Additional Health Concerns Assessment Noted Time PHQ-9 Depression Total Score: 5 03/16/20 24 11:45 AM EDT documented as of this encounter Care Teams Talent Acquisition Coordinator Relationship Specialty Start Date End Date Brooklyn Jalloh MD [address] [place] [address] [phone] PCP - General Family Medicine 07/17/21 documented as of this encounter
--- OUTSIDE RECORDS SUMMARY | 2025-07-22 09:57 | XMS_ITS | Encounter Summary ---
Author Organization [employer] Address [address] [place] [address] 7t [place] [address] Care Team Providers Care Visual Supervisor Name Role Phone Brooklyn Jalloh MD Primary Care Provider [phone] Reason for Referral * (Routine) - Closed Specialty Diagnoses / Procedures Referred By Tenzin t Referred To Contact Diagnoses Benign breast disease Procedures BI Mammogram Diagnostic same day Diagnostic same/ Day Right Brooklyn Jalloh MD [address] [place] [address]288 Phone: tel: fax: Referral ID Status Reason Start Date Expiration Date Visits Re quested Visits Authorized [id number] Closed 03/20/2023 09/16/2023 1 1 Encounter Details Date Type Department Care Team (Late st Contact Info) Description 03/20/2023 Orders Only [facility] MEDICINE [address] [place] [address] [phone] Brooklyn Jalloh MD [address] [place] [address] [phone] Benign breast disease (Primary Dx) Social History [...] Recorded In the last 10 days, have james u been in contact with someone who was confirmed or suspected to have Coronavirus/COVID-19? No / Unsure 03/18/2023 11:22 AM EDT documented as of this encounter Plan of Treatment Upcoming Encounters Date Type Department Care Team (Late st Contact Info) Description 07/23/2025 11:00 AM EDT Office Visit [address] [address] Name, MD Raffi [address] [place] [address] 08/13/2025 11:15 AM EDT Office Visit [address] [address] Brooklyn Jalloh MD [address] [place] [address] 24220 Scheduled Orders Name Type Priority Associated Diagnoses [...] documented as of this encounter Care Teams Visual Supervisor Relationship Specialty Start Date End Date Brooklyn Jalloh MD [address] [place] [address] PCP - General Family Medicine 07/17/21 documented as of this encounter
--- OUTSIDE RECORDS SUMMARY | 2025-07-22 09:57 | XMS_ITS | Encounter Summary ---
Author Organization [employer] Address [address] [facility] 7t [place] [address] Care Team Providers Care Global Head Advertiser Solutions Name Role Phone Brooklyn Jalloh MD Primary Care Provider [phone] Reason for Visit * Reason Onset Date Comments Referral 07/20/2025 Encounter Details Date Type Department Care Team ([facility] st Contact Info) Description 07/20/2025 Telephone [facility] [address] [place], [place] [phone] Brooklyn Jalloh MD 230 [place] [address] Referral Social History Tobacco Use Types Packs/Day [...] Telephone Encounter - Jamila Schmitz RN - 07/20/2025 2:06 PM EDT TC returned to pt. Pt. Requesting nephrology referral due to ongoing L flank pain x 2 weeks, seen for this in walk in clinic 07/13/25. Urine culture returned negative. Pt. Would like to be checked forkidney stones. Pt. Reports no h/o kidney stones. Pt. Describes pain as sharp and radiates to front.Pt. Reports she has been drinking extra water. Advised pt. She would need an appt for re evaluation to obtain referral or US order to check for kidney stones and pt. Verbalizes understanding, agrees to appt. 07/23/[address] Mendoza. Pt. Reports she will seek emergency care if pain becomes severe, or hematuria or fever occurs. * Telephone Encounter - Dallas Dasilva - 07/20/2025 9:15 AM EDT Tc from pt requesting a referral to a coin machine collector supervisor at [address] [place] [address] Contact pt at [phone] (tajik) documented in this encounter Plan of Treatment Upcoming Encounters Date Type Department Care Team ([facility] st Contact Info) Description 07/23/2025 11:00 AM EDT Office Visit [facility] [address] [place] [address] Name, MD Raffi [address] [place] [address] 08/13/2025 11:15 AM EDT Office Visit [facility] [address] [place] [address] Brooklyn Jalloh MD [address] [place] [address] documented as of this encounter Visit Diagnoses Not on filedocumented in this encounter Additional Health Concerns Assessment Noted Time PHQ-9 Depression Total Score: 14 025 12:17 PM EDT documented as of this encounter Care Teams Global Head Advertiser Solutions Relationship Specialty Start Date End Date Brooklyn Jalloh MD [address] [place] [address] [phone] PCP - General Family Medicine 07/17/21 documented as of this encounter
--- OUTSIDE RECORDS SUMMARY | 2025-07-22 09:57 | XMS_ITS | Encounter Summary ---
Author Organization [employer] Address [address] [facility] 7t [place] [address] Care Team Providers Care Plumbing And Heating Contractor Name Role Phone Brooklyn Jalloh MD Primary Care Provider [phone] Reason for Visit * Reason Onset Date Comments Referral 08/05/2024 Encounter Details Date Type Department Care Team ([facility] st Contact Info) Description 08/05/2024 Telephone [facility] MEDICINE 230 [place], [place] [phone] Brooklyn Jalloh MD 230 [place] [address] Referral Social History Tobacco Use Types Packs/Day [...] of the breast to be sent to [facility] Address: [address] [place] [address] Fax- [phone] documented in this encounter Plan of Treatment Upcoming Encounters Date Type Department Care Team (Late st Contact Info) Description 07/23/2025 11:00 AM EDT Office Visit [facility] MEDICINE [address] [place] [address] Name, MD Raffi [address] [place] [address] 08/13/2025 11:15 AM EDT Office Visit [facility] MEDICINE [address] [place] [address] Brooklyn Jalloh MD [address] [place] [address] documented as of this encounter Visit Diagnoses Not on filedocumented in this encounter Additional Health Concerns Assessment Noted Time PHQ-9 Depression Total Score: 5 03/16/20 24 11:45 AM EDT documented as of this encounter Care Teams Plumbing And Heating Contractor Relationship Specialty Start Date End Date Brooklyn Jalloh MD [address] [place] [address] 10296 PCP - General Family Medicine 07/17/21 documented as of this encounter
--- OUTSIDE RECORDS SUMMARY | 2025-07-22 09:57 | XMS_ITS | Encounter Summary ---
Author Organization [employer] Address [address] [facility] 7t [place] [address] Care Team Providers Care Associate Professor Of Library Media Name Role Phone Brooklyn Jalloh MD Primary Care Provider [phone] Encounter Details Date Type Department Care Team ([facility] Contact Info) Description 02/15/2023 Orders Only [facility] MEDICINE [address] [place] [address] [phone] Brooklyn Jalloh MD [address] [place] [address] [phone] Ingrown toenail (Primary Dx) Social History Tobacco [...] Upcoming Encounters Date Type Department Care Team ([facility] Contact Info) Description 07/23/2025 11:00 AM EDT Office Visit [facility]INE [address] [place] [address] [phone] Name, MD Raffi [address] [place] [address] 08/13/2025 11:15 AM EDT Office Visit [facility] MEDICINE [address] [place] [address] Brooklyn Jalloh MD [address] [place] [address] [phone] documented as of this encounter Visit Diagnoses Diagnosis Ingrown toenail- Primary Ingrowing nail documented in this encounter Additional Health Concerns Assessment Noted Time PHQ-9 Depression Total Score: 6 02/05/20 23 11:27 AM EDT documented as of this encounter Care Teams Associate Professor Of Library Media Relationship Specialty Start Date End Date Brooklyn Jalloh MD [address] [place] [address] [phone] PCP - General Family Medicine 07/17/21 documented as of this encounter
--- OUTSIDE RECORDS SUMMARY | 2025-07-22 09:57 | XMS_ITS | Clinical Summary ---
Author Organization [facility] Address 175 [place] [address] Phone Care Team Providers Care Clinical Social Work Aide Name Role Phone Brooklyn Jalloh MD Primary Care Provider [phone] Allergies Active Allergy Reactions Criticality Noted Date [...] 11:00 AM EDT Office Visit Orthopedic Surgery [facility] [address] [facility] 250 [place] [address] Scot Durant DPM 230 [place] [address] Health Maintenance Due Date Last Done Comments [...] * Annual BMP Blood Test (08/31/2024) Pathologist [facility] Annual BMP Blood Test abstracted [facility] Provider HEALTH MAINTENANCE Final Result * HIV Screening (08/18/2024) [facility] HIV Screening abstracted [facility] Provider HEALTH MAINTENANCE Final Result * Hepatitis C Screening (08/18/2024) [facility] Hepatitis C Screening abstracted [facility] Provider HEALTH MAINTENANCE Final Result * Lipid panel (02/21/2021) [facility] LDL/HDL Ratio 0 Comment:abstracted, no inter pretation Triglycerides 0 mg/dL Comment:abstracted, no inter pretation Cholesterol 0 mg/dL Comment:abstracted, no inter pretation HDL 0 mg/dL Comment:abstracted, no inter pretation LDL Cholesterol 0 mg/dL Comment:abstracted, no inter pretation Blood Venous blood specimen / Unknown Result [facility] Provider LAB BLOOD ORDERABLES Julianne l Result from Last 3 Months or Most Recently Relevant to Health Maintenance Insurance [facility] MEDICARE Member Subscriber Plan / Payer (Ef fective 2018-Present) Name:MACHELLE CUNNINGHAM Relation to Subscriber:Self Name:Machelle Cunningham Payer ID:[id number] Group ID:[id number] Type:Not on file Address: [address] [place] [address] Care Teams Clinical Social Work Aide Relationship Specialty Start Date End Date Brooklyn Jalloh MD 230 [place] [address] PCP - General 09/12/22
--- OUTSIDE RECORDS SUMMARY | 2025-07-22 09:58 | XMS_ITS | Encounter Summary ---
Author Organization [facility] Address [address] [facility] 7t [place] [address] Care Team Providers Care Radio Communications Mechanician Name Role Phone Brooklyn Jalloh MD Primary Care Provider [phone] Encounter Details Date Type Department Care Team (Latest Contact Info) Description 04/06/2021 Abstract [facility] CONVERSIONS Dental, Provider, DDS Social [...] Upcoming Encounters Date Type Department Care Team ( st Contact Info) Description 07/23/2025 11:00 AM EDT Office Visit [facility] MEDICINE [address] [place] [address] Name, MD Raffi [address] [place] [address] 08/13/2025 11:15 AM EDT Office Visit [facility] MEDICINE [address] [place] [address] Brooklyn Jalloh MD [address] [place] [address] 14[address] documented as of this encounter Visit Diagnoses Not on filedocumented in this encounter Care Teams Radio Communications Mechanician Relationship Specialty Start Date End Date Brooklyn Jalloh MD [address] [place] [phone] PCP - General Family Medicine 07/17/21 documented as of this encounter
--- OUTSIDE RECORDS SUMMARY | 2025-07-22 09:58 | XMS_ITS | Encounter Summary ---
Author Organization [facility] Address [address] [facility] 7t [place] [address] Care Team Providers Care Nurse Companion Name Role Phone Brooklyn Jalloh MD Primary Care Provider [phone] Encounter Details Date Type Department Care Team (Latest Contact Info) Description 05/12/2019 Abstract [facility] CONVERSIONS Dental, Provider, DDS Social [...] Description 07/23/2025 11:00 AM EDT Office Visit [facility] MEDICINE [address] [place] [address] 604[address] Name, MD Raffi [address] [place] [address] 08/13/2025 11:15 AM EDT Office Visit [facility] MEDICINE [address] [place] [phone] Brooklyn Jalloh MD [address] [place] [address] 12482 documented as of this encounter Visit Diagnoses Not on filedocumented in this encounter Care Teams Nurse Companion Relationship Specialty Start Date End Date Brooklyn Jalloh MD [address] [place] [phone] PCP - General Family Medicine 07/17/21 documented as of this encounter
--- OUTSIDE RECORDS SUMMARY | 2025-07-22 09:58 | XMS_ITS | Encounter Summary ---
Author Organization [employer] Address [address] [facility] 7t [place] [address] Care Team Providers Care Academy Director Name Role Phone Brooklyn Jalloh MD Primary Care Provider [phone] Encounter Details Date Type Department Care Team ([facility] Contact Info) Description 11/12/2022 Orders Only [facility] MEDICINE [address] [place] [address] [phone] Brooklyn Jalloh MD [address] [place] [address] [phone] Social History Tobacco Use Types Packs/Day Years [...] Upcoming Encounters Date Type Department Care Team ([facility] Contact Info) Description 07/23/2025 11:00 AM EDT Office Visit [facility] MED[facility]INE [address] [place] [address] [phone] Name, MD Raffi [address] [place] [address] [phone] 08/13/2025 11:15 AM EDT Office Visit [facility] 230 [place] [address] Brooklyn Jalloh MD 230 [place] [address] documented as of this encounter Visit Diagnoses Not on filedocumented in this encounter Care Teams Academy Director Relationship Specialty Start Date End Date Brooklyn Jalloh MD [address] [place] [address] 29369 PCP - General Family Medicine 07/17/21 documented as of this encounter
--- OUTSIDE RECORDS SUMMARY | 2025-07-22 09:58 | XMS_ITS | Encounter Summary ---
Author Organization [email or web address] [facility] Address [address] [facility] 7t [place] [address] Care Team Providers Care Milk Truck Driver Name Role Phone Brooklyn Jalloh MD Primary Care Provider [phone] Encounter Details Date Type Department Care Team (Latest Contact Info) Description 06/27/2022 Abstract [facility] CONVERSIONS Dental, Provider, DDS Social History [...] Description 07/23/2025 11:00 AM EDT Office Visit [facility] MEDICINE [address] [place] [address] Name, MD Raffi [address] [place] [address] 08/13/2025 11:15 AM EDT Office Visit [facility] MEDICINE [address] [place] [address] Brooklyn Jalloh MD [address] [place] [address] 275[address] documented as of this encounter Visit Diagnoses Not on filedocumented in this encounter Care Teams Milk Truck Driver Relationship Specialty Start Date End Date Brooklyn Jalloh MD [address] [place] [address] [phone] PCP - General Family Medicine 07/17/21 documented as of this encounter
--- OUTSIDE RECORDS SUMMARY | 2025-07-22 09:58 | XMS_ITS | Encounter Summary ---
Author Organization [employer] Address [address] [facility] [address] 7t [place] [address] Care Team Providers Care Varnish Cooker Name Role Phone Brooklyn Jalloh MD Primary Care Provider [phone] Encounter Details Date Type Department Care Team (Late st Contact Info) Description 12/22/2023 Orders Only [facility] MEDICINE 230 [place], [place] [phone] Brooklyn Jalloh MD 230 [place], [place] [phone] Bronchitis (Primary Dx) Social History Tobacco Use [...] Description 07/23/2025 11:00 AM EDT Office Visit [address] [address] Name, MD Raffi [address] [place] [address] [phone] 08/13/2025 11:15 AM EDT Office Visit [address] [address] Brooklyn Jalloh MD [address] [place] [address] 9[address] documented as of this encounter Procedures Procedure Name Priority Date/Time Associated Diagnosis Comments CBC WITH AUTO DIFFERENTIAL Routine 12/25/2023 12:28 PM EST Bronchitis documented in this encounter Results * (ABNORMAL) CBC auto differential (12/25/2023 12:28 PM EST) White Blood Count 15.4(H) 4.8 - 10.8 X10*3/uL [facility] Red Blood Count 5.11 4.20 - 5.50 X10*6/uL [facility] Hemoglobin 13.7 12.0 - 16.0 g/dl [facility] Hematocrit 42.6 37.0 - 47.0 % [facility] Mean Corpuscular Volume 83.4 80.0 - 98.0 fL [facility] Mean Corpuscular Hemoglobin 26.8(L) 27.0 - 33.0 pg [facility] Mean Corpuscular HGB Conc 32.2 31.0 - 35.0 g/dl [facility] Red Cell Distribution Width 13.9 11.0 - 16.0 % [facility] Platelet Count 442(H) 160 - 400 X10*3/uL [facility] Mean Platelet Volume 10.1 9.4 - 12.3 fL [facility] Neutrophils Percent Auto 71.8 45 - 73 % [facility] Imm Gran Pct Auto 0.5(H) 0.0 - 0.4 % [facility] Lymphocytes Percent Auto 20.8 20 - 40 % [facility] Monocytes Percent Auto 6.7 2 - 11 % [facility] Eosinophils Percent Auto 0.1 0 - 4 % [facility] Basophils Percent Auto 0.1 0 - 2 % [facility] NRBC Pct Auto 0.0 0.0 - 0.2 /100WBC [facility] Neutrophils Absolute Auto 11.0(H) 2.0 - 8.3 x10*3/uL [facility] Imm Gran Abs Auto 0.08(H) 0.00 - 0.03 X10*3/uL [facility] Lymphocytes Absolute Auto 3.2 1.2 - 4.9 X10*3/uL [facility] Monocytes Absolute Auto 1.0 0.1 - 1.2 X10*3/uL [facility] Eosinophils Absolute Auto 0.0 0.0 - 0.4 X10*3/uL [facility] Basophils Absolute Auto 0.0 0.0 - 0.2 X10*3/uL [facility] NRBC Abs Auto 0.000 0.0 - 0.012 X10*3/uL [facility] Blood Venous blood specimen / Unknown 12/25/2023 12:28 PM EST 12/25/2023 1:09 PM EST Brooklyn Jalloh MD LAB BLOOD ORDERABLES Final Res ult [facility] [address] [place] [address] [phone] documented in this encounter Visit Diagnoses Diagnosis Bronchitis- Primary Bronchitis, not specified as acute or chronic documented in this encounter Additional Health Concerns Assessment Noted Time PHQ-9 Depression Total Score: 6 02/05/20 23 11:27 AM EDT documented as of this encounter Care Teams Varnish Cooker Relationship Specialty Start Date End Date Brooklyn Jalloh MD [address] [place] [address] [phone] PCP - General Family Medicine 07/17/21 documented as of this encounter
--- OUTSIDE RECORDS SUMMARY | 2025-07-22 09:58 | XMS_ITS | Encounter Summary ---
Author Organization [employer] Address [address] [facility] 7t h Floor [place] [phone] Care Team Providers Care Diesel Service Apprentice Name Role Phone Brooklyn Jalloh MD Primary Care Provider [phone] Reason for Visit * Reason Onset Date Comments referral 11/29/2023 Encounter Details Date Type Department Care Team ([facility] st Contact Info) Description 11/29/2023 Telephone [facility] MEDICINE 230 [place], [place] [phone] Brooklyn Jalloh MD 230 [place] [address] referral Social History Tobacco Use Types Packs/Day [...] Tc from pt requesting a Referral for [facility] Gastrology with Dr. Aldrich @ [address] [address] to be further Evaluated for her Diagnoses @ the [facility] of gastroenteritis. Please contact pt @ [phone] documented in this encounter Plan of Treatment Upcoming Encounters Date Type Department Care Team ([facility] st Contact Info) Description 07/23/2025 11:00 AM EDT Office Visit [facility] MEDICINE [address] [place] [address] [phone] Name, MD Raffi [address] [place] [address] [phone] 08/13/2025 11:15 AM EDT Office Visit [facility] MEDICINE [address] [place] [address] 7[address] Brooklyn Jalolh MD [address] [place] [address] 87435 documented as of this encounter Visit Diagnoses Not on filedocumented in this encounter Additional Health Concerns Assessment Noted Time PHQ-9 Depression Total Score: 6 02/05/20 23 11:27 AM EDT documented as of this encounter Care Teams Diesel Service Apprentice Relationship Specialty Start Date End Date Brooklyn Jalloh MD [address] [place] [address] 23853 PCP - General Family Medicine 07/17/21 documented as of this encounter
--- OUTSIDE RECORDS SUMMARY | 2025-07-22 09:58 | XMS_ITS | Encounter Summary ---
Author Organization [employer] Address [address] [facility] [address] 7t [place] [address] Care Team Providers Care Technician Support Engineer Name Role Phone Brooklyn Jalloh MD Primary Care Provider [phone] Encounter Details Date Type Department Care Team (Late st Contact Info) Description 03/10/2024 Orders Only [facility] MEDICINE 230 [place], [place] [phone] Brooklyn Jalloh MD 230 [place] [address] Social History Tobacco Use Types Packs/Day Years Used Date Smoking Tobacco: Never Passive Smoke Exposure: Never Smokeless Tobacco: Never Alcohol Use Standard Drinks/Week Comments Never 0 (1 standard drink = 0.6 oz pur e alcohol) Depression Answer Date Recorded Patient Health Questionnaire-9 Score 6 02/04/2023 Housing Stability Answer Date Recorded What is your housing situation today? I have stellajacques clales 03/05/[address] you li [...] Description 07/23/2025 11:00 AM EDT Office Visit [facility] MEDICINE [address] [place] [address] 87676 Name, MD Raffi [address] [place] [address] 08/13/2025 11:15 AM EDT Office Visit [address] [address] Brooklyn Jalloh MD [address] [place] [address] 50088 documented as of this encounter Visit Diagnoses Not on filedocumented in this encounter Additional Health Concerns Assessment Noted Time PHQ-9 Depression Total Score: 6 02/05/20 23 11:27 AM EDT documented as of this encounter Care Teams Technician Support Engineer Relationship Specialty Start Date End Date Brooklyn Jalloh MD [address] [place] [address] [phone] PCP - General Family Medicine 07/17/21 documented as of this encounter
--- OUTSIDE RECORDS SUMMARY | 2025-07-22 09:58 | XMS_ITS | Encounter Summary ---
Author Organization [employer] Address [address] [facility] 7t [place] [address] Care Team Providers Care Child Support Specialist Name Role Phone Brooklyn Jalloh MD Primary Care Provider [phone] Reason for Referral * Consultation (Routine) - Closed Specialty Diagnoses / Procedures Referred By Tenzin ahumada Referred To Contact Orthopaedic Surgery Diagnoses Primary osteoarthritis of both knees Brooklyn Jalloh MD [address] [place] [address] Phone: tel: fax: [facility] [address] [place] [address] Phone: tel: Referral ID Status Reason Start Date Expiration Date V isits Requested Visits Authorized [id number] Closed Specialty Services Required 02/18/2024 02/17/2025 1 1 Encounter Details Date Type Department Care Team (Late st Contact Info) Description 02/18/2024 Orders Only [facility] [address] [place] [address] Brooklyn Jalloh MD [address] [place] [address] Primary osteoarthritis of both knees (Primary Dx) [...] Description 07/23/2025 11:00 AM EDT Office Visit [facility] [address] [place] [address] Name, MD Raffi [address] [place] [address] 08/13/2025 11:15 AM EDT Office Visit [facility] [address] [place] [address] Brooklyn Jalloh MD [address] [place] [address] Scheduled Referrals Name Type Priority Associated Diagnoses [...] PM EDT Narrative 03/09/2024 2:27 PM EDT [address] [address] XRay Report Signed Patient: Machelle Wooten MR#: [id number] : 1970 Acct:[id number] Age/Sex: 54 / F ADM Date: 03/09/24 Loc: HO.ED Attending Dr: Ordering Physician: Zack Lainez Date of Service: 03/09/24 Procedure(s): XR chest 2V Accession Number(s): [id number] cc: Brooklyn Jalloh; Zack Lainez EXAMINATION: XR [...] in OV> 03/09/24 1424 DD/ 1408 TD/TT: Well Digger: CLEO Procedure Note Donotuseinterpreter, Image - 03/09/[address] [address] XRay Report Signed Patient: Machelle WootenMR#: [id number] : 1970Acct:[id number] Age/Sex: 54 / FADM Date: 03/09/24 Loc: HO.ED Attending Dr: Ordering Physician: Zack Lainez Date of Service: 03/09/24 Procedure(s): XR chest 2V Accession Number(s): [id number] cc: Brooklyn Jalloh; Zack Lainez EXAMINATION: XR [...] DO inOV> 03/09/24 1424 DD/ 1408 TD/TT: Well Digger: CLEO [facility] External Provider IMG XR PROCEDURES Edited Result - Final documented in this encounter Visit Diagnoses Diagnosis Primary osteoarthritis of both knees- Primary documented in this encounter Additional Health Concerns Assessment Noted Time PHQ-9 Depression Total Score: 6 02/05/20 23 11:27 AM EDT documented as of this encounter Care Teams Child Support Specialist Relationship Specialty Start Date End Date Brooklyn Jalloh MD [address] [place] [address] PCP - General Family Medicine 07/17/21 documented as of this encounter
[2025-07-22 10:07] LABS: Resp Syncy Virus RNA Qual PCR NEGATIVE (Negative); SARS COV2 PCR INHOUSE NEGATIVE (Negative)
[2025-07-22] MEDS: iohexoL 350 MG/ML 100 ML INFUS..BTL IV (10:18)
[2025-07-22 11:58] VITALS: BP 132/80; PULSE 74; RESP 20; TEMP 36.6; O2SAT 96
== END 2025-07-22 11:58 | disposition home or self-care (01) ==
PROVIDERS: Emergency Provider Emergency Medicine; PCP General Practice
DX: J45.21 Mild intermittent asthma with (acute) exacerbation (principal); R06.02 Shortness of breath; R05.9 Cough, unspecified; M54.6 Pain in thoracic spine; Z79.899 Other long term (current) drug therapy; Z03.818 Encounter for observation for suspected exposure to other biological agents ruled out
CPT/HCPCS: 71045; 71275; 80053; 83735; 85027; 87637; 94640; 96372; 96374; 96375; 99284; J1171; J1885; J2405; J2919; J3475; Q9967

== ENCOUNTER 2025-07-27 12:56 | Outpatient (AMB) | payer OTHER, SELFPAY ==
--- OUTSIDE RECORDS SUMMARY | 2025-07-23 11:00 | XMS_ITS | Encounter Summary ---
Author Organization [employer] Address [address] [facility] 7t [place] [address] Care Team Providers Care Valve Maker Name Role Phone Brooklyn Jalloh MD Primary Care Provider [phone] Reason for Visit * Reason Comments sick on site Encounter Details Date Type Department Care Team ([facility] st Contact Info) Description 07/23/2025 11:00 AM EDT Office Visit [facility] [address] [place] [address] Name, MD Raffi [address] [place] [address] Moderate persistent asthma, unspecified whether complicated (Primary Dx) Social History Tobacco Use Types [...] the past 12 months, has t he [employer] gas, oil or water company threatened to [...] Sign Reading Time Taken Comments Blood Pressure 110/78 07/23/2025 11:17 AM EDT Pulse 102 07/23/2025 11:17 AM EDT Temperature 36.8 C (98.2 F) 07/23/2025 11:17 AM EDT Respiratory Rate 14 07/23/2025 11:17 AM EDT Oxygen Saturation 98% 07/23/2025 11:17 AM EDT Inhaled Oxygen Concentration - - Weight 89.4 kg (197 lb) 07/23/2025 11:17 AM EDT Height - - Body Mass Index 31.8 07/13/2025 1:24 PM EDT documented in this encounter Progress Notes * Raffi Mendoza MD - 07/23/2025 11:00 AM EDT Subjective Patient ID: Machelle Barroso is a 55 y.o. female who presents for sick on site. Patient comes for a sick visit complaining of several months of nonproductive cough she has a personal history of asthma. She has been seen several times at walk-in clinic and was seen yesterday at the ER for similar complaints. She had a CT of the chest that ruled out pulmonary embolism done yesterday. She was sent home with a diagnosis of asthma exacerbation. She was given magnesium and steroids in the ER with symptomatic improvement. She was sent home on a course of prednisone. During her visit she is in no respiratory distress, she is not coughing or wheezing wheezing, oxygen saturation is normal. She explains to me that she was suggested on previous visits that she was to discontinue her lisinopril because it could be a possible etiology of her nonproductive cough but she never did. She is not using the losartan prescribed previously. Review of Systems Constitutional: Negative for chills and fever. HENT: Negative for sore throat. Respiratory: Positive for cough and shortness of breath. Negative for wheezing. See HPI Cardiovascular: Negative for chest pain, palpitations and leg swelling. Gastrointestinal: Negative for abdominal pain. Musculoskeletal: Occasional back and neck pain associated with her cough Objective Vitals: 07/23/25 1117 BP: 110/78 BP Location: Left arm Patient Position: Sitting BP Cuff Size: Adult Pulse: 102 Resp: 14 Temp: 98.2 ??F (36.8 ??C) TempSrc: Oral SpO2: 98% Weight: 197 lb (89.4 kg) Physical Exam Constitutional: Appearance: Normal appearance. Cardiovascular: Rate and Rhythm: Normal rate and regular rhythm. Heart sounds: No murmur heard. No gallop. Pulmonary: Effort: Pulmonary effort is normal. No respiratory distress. Breath sounds: Normal breath sounds. No wheezing. Musculoskeletal: Right lower leg: No edema. Left lower leg: No edema. Neurological: Mental Status: She is alert. [address] [address] [address] Scan Report Signed Patient: Machelle Wooten MR#: [id number] : 1970 Acct:[id number] Age/Sex: 55 / F ADM Date: 07/22/25 Loc: HO.ED Attending Dr: Ordering Physician: Kaylie Choi Date of Service: 07/22/25 Procedure(s): CT angio chest PE protocol Accession Number(s): [id number] cc: Kyalie Choi; Brooklyn Jalloh Report Number: [id number]: Total DLP = 378.00 mGy-cm EXAMINATION: CT ANGIOGRAM CHEST CLINICAL INFORMATION: Shortness of breath. Chest pain. COMPARISON: None available. TECHNIQUE: Multiple axial images were obtained through the chest after the administration of 65 mL of Omnipaque 350 intravenous contrast. Extensive vascular post-processing including two-dimensional and three-dimensional reformatted images were created and reviewed on an independent workstation. SmartPrep technique. This CT examination was performed using dose optimization techniques as appropriate, variously including the following: *Automated exposure control *Adjustment of mA and/or kV according to patient size (this includes techniques or standardized protocols for targeted exams where dose is matched to indication/reason for exam; i.e. extremities or head) *Use of iterative reconstruction technique DLP: 378 mGy centimeter. FINDINGS: Inadequate smart prepped technique. The main pulmonary artery or its main branches demonstrated normal patency without intraluminal filling defects. No aneurysm or dissection or focal stenosis or thoracic aorta. There is a subtle pulmonary mosaic pattern. No consolidation, pleural effusion or pneumothorax. No calcified pleural plaques. No honeycombing. No bronchiectasis. No gross emphysematous changes. No mediastinal lymphadenopathy. No pericardial effusion. No pneumomediastinum. Heart is not enlarged. Status post cholecystectomy. Multilevel thoracic spondylosis. A shaped curvature of the thoracic spine. No gross acute rib fracture. CT/CT angio chest PE protocol IMPRESSION: No acute pulmonary artery emboli. Consider small airway disease in the correct clinical settings. Fleischner guidelines were followed. Electronically signed by: Wisam Worley MD 07/22/2025 10:48 AM EDT Assessment/Plan Diagnoses and all orders for this visit: Moderate persistent asthma, unspecified whether complicated Comments: Patient lungs are clear today and she feels better after treatment with steroids and Magnesium at the ER. I recommended to continue on her current inhalers and use the prednisone she was prescribed at the ER. Other orders - lisinopril 5 MG tablet; TAKE 1 TABLET BY MOUTH EVERY DAY Future Appointments Date Time Provider Department Center 08/13/2025 11:15 AM Brooklyn Jalloh MD [facility] documented in this encounter Plan of Treatment Upcoming Encounters Date Type Department Care Team (Late st Contact Info) Description 08/13/2025 11:15 AM EDT Office Visit [facility] [address] [place] [address] Brooklyn Jalloh MD [address] [place] [address] documented as of this encounter Visit Diagnoses Diagnosis Moderate persistent asthma, unspecified whether complicated- Primary documented in this encounter Additional Health Concerns Assessment Noted Time PHQ-9 Depression Total Score: 14 025 12:17 PM EDT documented as of this encounter Care Teams Valve Maker Relationship Specialty Start Date End Date Brooklyn Jalloh MD [address] [place] [address] PCP - General Family Medicine 07/17/21 documented as of this encounter
[2025-07-27 13:26] VITALS: BP 120/82; PULSE 81; O2SAT 99; BMI 32.9
--- NOTE | 2025-07-27 13:26 | A.OFFVIS_ITS ---
Vital Signs 07/27/25 13:26 Height 5 ft 5 in Weight 198 lb BMI 32.9 BP 120/82 Blood Pressure Location Lt brachial Position Sitting Pulse 81 Pulse Source Pulse Oximeter Pulse Oximetry (%) 99 Oxygen Delivery Method Room Air Intake Visit Reasons: Asthma Reroller Hand Required: Yes Reroller Hand Name: Georgette Torres Brittney Allergies shrimp (SHRIMP) Allergy (Unknown, Verified 07/27/25 13:33) UNKNOWN HPI HPI Asthma: Details: 55-year-old lady, nonsmoker, but with significant exposure to secondhand smoke for over 20 years, followed for mild LEAH and asthma.? Patient has been using her CPAP with reasonable control of her underlying sleep apnea.? Her asthma symptoms at this time are not well controlled on current regimen of Breo and albuterol MDI as patient has been having significant nonproductive cough over the last 2 months then gets worse after midnight and in self pay representative and recently also has been having some productive yellowish sputum. Though, she denies wheezing. She does have underlying GERD for which she has been using omeprazole 20 mg daily. Patient is also on lisinopril over many years. [facility] Medical History Other and unspecified hyperlipidemia Essential hypertension Family history of coronary artery disease Bilateral knee pain Chronic pain Fibromyalgia Surgical History History of cholecystectomy H/O section H/O lateral meniscus repair of left knee History of hysterectomy Family History Father History of open heart surgery Brother Hypertension Mother Colon cancer Social History Household Members Other:: son Housing: Apartment Alcohol intake: never Patient Tobacco Use Status: Never used Tobacco Current occupational status: disabled Current occupation: Right Handed Review of Systems Const Denies daytime sleepiness, Denies excessive sweating, Denies fatigue, Denies fever(s), Denies lethargy, Denies malaise, Denies night sweats, Denies snoring and Denies weight loss Eyes Denies blurry vision and Denies itchy eyes ENT Denies nasal congestion, Denies post nasal drip, Denies sinus pain, Denies sinus pressure and Denies other ( Thrush) Card Denies chest pain, Denies pedal edema, Denies dyspnea, Denies orthopnea and Denies paroxysmal nocturnal dyspnea Resp Reports cough, Denies hemoptysis, Reports excessive phlegm production, Denies dyspnea, Denies snoring and Denies wheezing GI Denies abdominal pain and Denies heartburn Musc Denies myalgias, Denies arthralgias and Denies joint swelling Skin/Breast Denies rash Neuro Denies memory loss and Denies seizure-like activity Psych Denies abnormal sleep pattern, Denies anxiety and Denies memory loss Endo Denies excessive sweating, Denies fatigue and Denies heat intolerance Bryant/Lymph Denies easy bruising Aller/Immun Denies itchy eyes, Denies seasonal rhinorrhea and Denies wheezing Physical Exam Vital Signs: Last Vital Signs Pulse 81 07/27/25 13:26 BP 120/82 07/27/25 13:26 Pulse Ox 99 07/27/25 13:26 Oxygen Delivery Method Room Air 07/27/25 13:26 BMI result Body Mass Index 32.9 Const General: no acute distress and alert Nutritional Appearance: not obese Orientation/consciousness: Other orientation findings ( oriented) HEENT Head: Yes atraumatic Eyes General: appearance normal, both eyes and all related structures Sclerae: sclerae normal EOM: EOMs intact bilaterally Neck Neck: Yes supple Lymphatic: no lymphadenopathy noted Resp Effort & Inspection: normal respiratory effort and no use of accessory muscles Auscultation: clear to auscultation bilaterally Cardio Rate: regular rate Rhythm: regular rhythm Heart sounds: no gallops, no murmurs and no rubs Skin General skin exam: other ( warm) Extrem General: No clubbing, No cyanosis and No edema Assessment & Plan Assessment & Plan (1) Asthma: Code(s): J45.909 - Unspecified asthma, uncomplicated Category: Medical Plan: Now suboptimally controlled on Breo, will switch to Trelegy. Continue albuterol MDI. (2) Cough: Code(s): R05.9 - Cough, unspecified Category: Medical Plan: Unclear etiology, appears to be multifactorial with underlying GERD, bronchitic, and possible lisinopril component. Will assess response to course of Levaquin, may consider discontinuation of lisinopril if not getting better. (3) LEAH (obstructive sleep apnea): Code(s): G47.33 - Obstructive sleep apnea (adult) (pediatric) Category: Medical Plan: Well controlled on current CPAP therapy. Continue CPAP therapy. Medications: New qgpguvkzrko-kpzyhbhcz-cqkjtoxi 200-62.5-25 mcg (Trelegy Ellipta) 1 inh inhalation DAILY 1 ea 6RF levofloxacin 750 mg PO DAILY 7 tabs 0RF Discontinued fluticasone furoate-vilanterol 200-25 mcg/dose (Breo Ellipta) Discontinued Reason: Doctor's Order 1 ea inhalation DAILY 60 ea 6RF Coding Level of Care Code Est Pt Level 4 (23157) Complex EM visit Add On G2211 Diagnoses Asthma J45.909 Cough R05.9 LEAH (obstructive sleep apnea) G47.33
--- OUTSIDE RECORDS SUMMARY | 2025-07-27 14:13 | XMS_ITS | Encounter Summary ---
Author Organization [employer] Address [address] [facility] [address] 7[address] [place] [address] Care Team Providers Care Automotive Product Specialist Name Role Phone Brooklyn Jalloh MD Primary Care Provider [phone] Encounter Details Date Type Department Care Team (Late st Contact Info) Description 08/25/2024 Orders Only [facility] [address] [place] [address] Provider, MD Dipak Social History Tobacco Use [...] 08/13/2025 11:15 AM EDT Office Visit [facility] [address] [place] [address] Brooklyn Jalloh MD [address] [place], [place] [phone] documented as of this encounter Procedures Procedure [...] documented as of this encounter Care Teams Automotive Product Specialist Relationship Specialty Start Date End Date Brooklyn Jalloh MD [address] [place] [phone] PCP - General Family Medicine 07/17/21 documented as of this encounter
--- OUTSIDE RECORDS SUMMARY | 2025-07-27 14:13 | XMS_ITS | Encounter Summary ---
Author Organization [employer] Address [address] [facility] 7t [place] [address] Care Team Providers Care Access Liaison Name Role Phone Brooklyn Jalloh MD Primary Care Provider [phone] Encounter Details Date Type Department Care Team (Late st Contact Info) Description 08/26/2024 Orders Only [facility] [address] [place] [address] Brooklyn Jalloh MD [address] [place] [address] Elevated alkaline phosphatase level (Primary Dx) Social [...] Description 08/13/2025 11:15 AM EDT Office Visit [facility] [address] [place] [address] Brooklyn Jalloh MD [address] [place] [address] documented as of this encounter Procedures Procedure Name Priority Date/Time Associated Diagnosis Comments MITOCHONDRIAL ANTIBODY WITH REFLEX TO TITER Routine 04/02/2025 11:49 AM EDT Elevated alkaline phosphatase level documented in this encounter Results * Mitochondrial Antibody with Reflex to Titer (04/02/2025 11:49 AM EDT) Mitochondrial Antibodies NEGATIVE NEGATIVE [facility] Comment:THIS TEST WAS PERFOR MED AT:[facility] [address] [id number] GRIGGS MD Mitochondrial Ab Titer TNP [facility] Blood Venous blood specimen / Unknown 04/02/2025 11:49 AM EDT 04/02/2025 1:17 PM EDT us Brooklyn Jalloh MD LAB BLOOD ORDERABLES Final Res ult [facility] [address] [place] [phone] documented in this encounter Visit Diagnoses Diagnosis Elevated alkaline phosphatase level- Primary documented in this encounter Additional Health Concerns Assessment Noted Time PHQ-9 Depression Total Score: 5 03/16/20 24 11:45 AM EDT documented as of this encounter Care Teams Access Liaison Relationship Specialty Start Date End Date Brooklyn Jalloh MD [address] [place] [address] PCP - General Family Medicine 07/17/21 documented as of this encounter
--- OUTSIDE RECORDS SUMMARY | 2025-07-27 14:13 | XMS_ITS | Encounter Summary ---
Author Organization [employer] Address [address] [facility] 7t [place] [address] Care Team Providers Care Press Offbearer Name Role Phone Brooklyn Jalloh MD Primary Care Provider [phone] Encounter Details Date Type Department Care Team ([facility] Contact Info) Description 05/11/2023 Orders Only [facility] [address] [place] [address] [phone] Brooklyn Jalloh MD [address] [place] [address] [phone] Onychomycosis (Primary Dx) Social History Tobacco Use [...] Upcoming Encounters Date Type Department Care Team ([facility] Contact Info) Description 08/13/2025 11:15 AM EDT Office Visit [facility] [address] [place] [address] [phone] Brooklyn Jalloh MD [address] [place] [address] documented as of this encounter Visit Diagnoses Diagnosis Onychomycosis- Primary Dermatophytosis of nail documented in this encounter Additional Health Concerns Assessment Noted Time PHQ-9 Depression Total Score: 6 02/05/20 23 11:27 AM EDT documented as of this encounter Care Teams Press Offbearer Relationship Specialty Start Date End Date Brooklyn Jalloh MD [address] [place] [address] PCP - General Family Medicine 07/17/21 documented as of this encounter
--- OUTSIDE RECORDS SUMMARY | 2025-07-27 14:13 | XMS_ITS | Encounter Summary ---
Author Organization [employer] Address [address] [facility] [address]t [place] [address] Care Team Providers Care Sweetbread Trimmer Name Role Phone Brooklyn Jalloh MD Primary Care Provider [phone] Reason for Visit * Reason Onset Date Comments Referral 08/05/2024 Encounter Details Date Type Department Care Team ([facility] st Contact Info) Description 08/05/2024 Telephone [facility] [address] [place], [place] [phone] Brooklyn Jalloh MD [address] [place] [address] Referral Social History Tobacco Use Types Packs/Day [...] of the breast to be sent to [facility] [place] Address: [address] [place] [address] Fax- [phone] documented in this encounter Plan of Treatment Upcoming Encounters Date Type Department Care Team (Late st Contact Info) Description 08/13/2025 11:15 AM EDT Office Visit [facility] [address] [place] [address] Brooklyn Jalloh MD [address] [place] [address] documented as of this encounter Visit Diagnoses Not on filedocumented in this encounter Additional Health Concerns Assessment Noted Time PHQ-9 Depression Total Score: 5 03/16/20 24 11:45 AM EDT documented as of this encounter Care Teams Sweetbread Trimmer Relationship Specialty Start Date End Date Brooklyn Jalloh MD [address] [place] [address] PCP - General Family Medicine 07/17/21 documented as of this encounter
--- OUTSIDE RECORDS SUMMARY | 2025-07-27 14:13 | XMS_ITS | Encounter Summary ---
Author Organization [employer] Address [address] [facility] 7t [place] [address] Care Team Providers Care Senior Financial Analyst Name Role Phone Brooklyn Jalloh MD Primary Care Provider [phone] Encounter Details Date Type Department Care Team ([facility] st Contact Info) Description 05/21/2025 Telephone [facility] MEDICINE [address] [place], [place] [phone] Brooklyn Jalloh MD [address] [place] [address] Social History Tobacco Use Types Packs/Day Years [...] Description 08/13/2025 11:15 AM EDT Office Visit [facility] MEDICINE [address] [place] [address] Brooklyn Jalloh MD [address] [place] [address] documented as of this encounter Visit Diagnoses Not on filedocumented in this encounter Additional Health Concerns Assessment Noted Time PHQ-9 Depression Total Score: 14 025 12:17 PM EDT documented as of this encounter Care Teams Senior Financial Analyst Relationship Specialty Start Date End Date Brooklyn Jalloh MD [address] [place] [address] PCP - General Family Medicine 07/17/21 documented as of this encounter
--- OUTSIDE RECORDS SUMMARY | 2025-07-27 14:13 | XMS_ITS | Encounter Summary ---
Author Organization [employer] Address [address] [facility] 7t [place] [address] Care Team Providers Care Patient Service Rep Name Role Phone Brooklyn Jalloh MD Primary Care Provider [phone] Reason for Visit * Reason Onset Date Comments triage 03/06/2023 Encounter Details Date Type Department Care Team ([facility] st Contact Info) Description 03/06/2023 Telephone [facility] MEDICINE [address] [place], [place] [phone] Brooklyn Jalloh MD [address] [place] [address] triage Social History Tobacco Use Types Packs/Day [...] 03/06/2023 3:39 PM EDT triage call with [facility] Field Service Consultant [place] [id number] Pt reports itchiness on face. Pt reports this has been for two days and has some red spots now. Pt has had this before in different areas of the body. Pt has seen spice fumigator Cassie and jakob to help but doesn't know the name of the cream. Pt is offered to come to [facility] to be seen by provider but, declines. Pt wants only to have apt with spice fumigator will send to PCP nurse team to [...] now The caller accepted this outcome speaks palestinian documented in this encounter Plan of Treatment Upcoming Encounters Date Type Department Care Team (Late st Contact Info) Description 08/13/2025 11:15 AM EDT Office Visit [facility] MEDICINE [address] [place] [address] Brooklyn Jalloh MD [address] [place] [address] documented as of this encounter Visit Diagnoses Not on filedocumented in this encounter Additional Health Concerns Assessment Noted Time PHQ-9 Depression Total Score: 6 02/05/20 23 11:27 AM EDT documented as of this encounter Care Teams Patient Service Rep Relationship Specialty Start Date End Date Brooklyn Jalloh MD [address] [place] [address] PCP - General Family Medicine 07/17/21 documented as of this encounter
--- OUTSIDE RECORDS SUMMARY | 2025-07-27 14:13 | XMS_ITS | Encounter Summary ---
Author Organization [employer] Address [address] [facility] 7t [place] [address] Care Team Providers Care Plant Sciences Professor Name Role Phone Brooklyn Jalloh MD Primary Care Provider [phone] Reason for Visit * Reason Onset Date Comments Medication Question 08/20/2024 Results 08/20/2024 Encounter Details Date Type Department Care Team ([facility] st Contact Info) Description 08/20/2024 Telephone [facility] MEDICINE [address] [place], [place] [phone] Brooklyn Jalloh MD [address] [place], [place] [phone] Medication Question; Results Social History Tobacco Use [...] 2:40 PM EDT TC placed to pt [phone] via [employer] in regards to below message. RN informed [...] - 08/20/2024 3:47 PM EDT Noted. Per [facility], shoulder Xray performed on 08/11/24 however interpretation [...] BW. Pt verbalized understanding. Pt also requesting wdrienc-[id number]-[id number] medication be Rx'd again for her migraines. [...] results: Labs Date when done: 08/18/24 Facility: [facility] Labs Pt is also requesting Eletriptan medication for migraines but medical underwriter did not see medication on med list. Please contact pt at [phone]. (Faroese Speaker) documented in this encounter Plan of Treatment Upcoming Encounters Date Type Department Care Team (Late st Contact Info) Description 08/13/2025 11:15 AM EDT Office Visit [facility] MEDICINE [address] [place] [address] Brooklyn Jalloh MD [address] [place] [address] documented as of this encounter Visit Diagnoses Not on filedocumented in this encounter Additional Health Concerns Assessment Noted Time PHQ-9 Depression Total Score: 5 03/16/20 24 11:45 AM EDT documented as of this encounter Care Teams Plant Sciences Professor Relationship Specialty Start Date End Date Brooklyn Jalloh MD [address] [place] [address] PCP - General Family Medicine 07/17/21 documented as of this encounter
--- OUTSIDE RECORDS SUMMARY | 2025-07-27 14:13 | XMS_ITS | Encounter Summary ---
Author Organization [employer] Address [address] [place] [address] 7t [place] [address] Care Team Providers Care Employment Director Name Role Phone Brooklyn Jalloh MD Primary Care Provider [phone] Reason for Referral * (Routine) - Closed Specialty Diagnoses / Procedures Referred By Tenzin t Referred To Contact Diagnoses Benign breast disease Procedures BI Mammogram Diagnostic same day Diagnostic same/ Day Right Brooklyn Jalloh MD [address] [place] [address] Phone: tel: fax: Referral ID Status Reason Start Date Expiration Date Visits Re quested Visits Authorized [id number] Closed 03/20/2023 09/16/2023 1 1 Encounter Details Date Type Department Care Team (Late st Contact Info) Description 03/20/2023 Orders Only [facility] MEDICINE [address] [place] [address] [phone] Brooklyn Jalloh MD [address] [place] [address] [phone] Benign breast disease (Primary Dx) Social History [...] Description 08/13/2025 11:15 AM EDT Office Visit [facility] MEDICINE [address] [place] [address] Brooklyn Jalloh MD [address] [place] [address] Scheduled Orders Name Type Priority Associated Diagnoses [...] documented as of this encounter Care Teams Employment Director Relationship Specialty Start Date End Date Brooklyn Jalloh MD [address] [place] [phone] PCP - General Family Medicine 07/17/21 documented as of this encounter
--- OUTSIDE RECORDS SUMMARY | 2025-07-27 14:13 | XMS_ITS | Encounter Summary ---
Author Organization [employer] Address [address] [facility] 7t [place] [address] Care Team Providers Care Manager Operational Name Role Phone Brooklyn Jalloh MD Primary Care Provider [phone] Reason for Visit * Reason Onset Date Comments Med Refill 02/04/2023 Encounter Details Date Type Department Care Team (Late st Contact Info) Description 02/04/2023 Telephone [facility] MEDICINE [address] [place] [address] Brooklyn Jalloh MD [address] [place] [address] Med Refill Social History Tobacco Use Types [...] 3:33 PM EDT Medications were sent to [facility] today 02/04/23. * Telephone Encounter - Ankur Villanueva - 02/04/2023 3:01 PM EDT Tc from pt requesting med refill Prednisone 20 mg Ibuprofen 800 mg Doxycycline 100 mg documented in this encounter Plan of Treatment Upcoming Encounters Date Type Department Care Team (Late st Contact Info) Description 08/13/2025 11:15 AM EDT Office Visit [facility] MEDICINE [address] [place] [address] Brooklyn Jalloh MD [address] [place], [place] [phone] documented as of this encounter Visit Diagnoses Not on filedocumented in this encounter Additional Health Concerns Assessment Noted Time PHQ-9 Depression Total Score: 6 02/05/20 23 11:27 AM EDT documented as of this encounter Care Teams Manager Operational Relationship Specialty Start Date End Date Brooklyn Jalloh MD [address] [place] [address] PCP - General Family Medicine 07/17/21 documented as of this encounter
--- OUTSIDE RECORDS SUMMARY | 2025-07-27 14:13 | XMS_ITS | Clinical Summary ---
Author Organization [facility] Address [address] [place] [address] Phone Care Team Providers Care Hose Wrapper Name Role Phone Brooklyn Jalloh MD Primary Care Provider [phone] Allergies Active Allergy Reactions Criticality Noted Date [...] AM EDT Office Visit [facility] [place] [address] [address] Scot Durant DPM [address] [address] Health Maintenance Due Date Last Done Comments Breast Cancer Screening 1970 Pneumococcal Vaccine: 50+ Years (1 of 2 - PCV) 02/25/1987 Cervical Cancer Screening: Pap Smear 02/25/1989 Colorectal Cancer Screening: Colonoscopy 12/20/2023 Medicare Annual Wellness Visit 12/20/2023 Social Influencers of Health Screening 12/20/2023 Depression Screening 11/25/2024 COVID-19 Vaccine ( season) 2025 11/07/2021, 03/29/2021, 03/01/2021 Influenza Vaccine (#1) 2025 [...] Blood Test (08/31/2024) Pathologist [facility] Annual BMP Blood Test abstracted [facility]TE[facility] Final Result * HIV Screening (08/18/2024) [facility] HIV Screening abstracted [facility]TENA[facility] Final Result * Hepatitis C Screening (08/18/2024) [facility] Hepatitis C Screening abstracted [facility] MAINTENANCE Final Result * Lipid panel (02/21/2021) [facility] LDL/HDL Ratio 0 Comment:abstracted, no inter pretation Triglycerides 0 mg/dL Comment:abstracted, no inter pretation Cholesterol 0 mg/dL Comment:abstracted, no inter pretation HDL 0 mg/dL Comment:abstracted, no inter pretation LDL Cholesterol 0 mg/dL Comment:abstracted, no inter pretation Blood Venous blood specimen / Unknown Result [facility] Provider LAB BLOOD ORDERABLES Julianne l Result from Last 3 Months or Most Recently Relevant to Health Maintenance Insurance [facility] MEDIC[facility] Member Subscriber Plan / Payer (Ef fective 2018-Present) Name:MACHELLE CUNNINGHAM Relation to Subscriber:Self Name:Machelle Cunningham Payer ID:[id number] Group ID:[id number] Type:Not on file Address: [address] [place] [address] Care Teams Hose Wrapper Relationship Specialty Start Date End Date Brooklyn Jalloh MD [address] [place] [address] PCP - General 09/12/22
--- OUTSIDE RECORDS SUMMARY | 2025-07-27 14:13 | XMS_ITS | Encounter Summary ---
Author Organization [employer] Address [address] [facility] 7t [place] [address] Care Team Providers Care Cost Recovery Technician Name Role Phone Brooklyn Jalloh MD Primary Care Provider [phone] Encounter Details Date Type Department Care Team ([facility] Contact Info) Description 03/07/2023 Orders Only [facility] MEDICINE [address] [place] [address] [phone] Brooklyn Jalloh MD [address] [place] [address] [phone] Rash of face (Primary Dx) Social History [...] Upcoming Encounters Date Type Department Care Team ([facility] Contact Info) Description 08/13/2025 11:15 AM EDT Office Visit [facility] MEDICINE [address] [place] [phone] Brooklyn Jalloh MD [address] [place] [address] documented as of this encounter Visit Diagnoses Diagnosis Rash of face- Primary documented in this encounter Additional Health Concerns Assessment Noted Time PHQ-9 Depression Total Score: 6 02/05/20 23 11:27 AM EDT documented as of this encounter Care Teams Cost Recovery Technician Relationship Specialty Start Date End Date Brooklyn Jalloh MD [address] [place] [address] PCP - General Family Medicine 07/17/21 documented as of this encounter
--- OUTSIDE RECORDS SUMMARY | 2025-07-27 14:13 | XMS_ITS | Encounter Summary ---
Author Organization [employer] Address [address] [facility] 7t [place] [address] Care Team Providers Care Non Destructive Testing Supervisor Name Role Phone Brooklyn Jalloh MD Primary Care Provider [phone] Encounter Details Date Type Department Care Team ([facility] st Contact Info) Description 03/19/2025 Orders Only [facility] MEDICINE [address] [place] [address] Brooklyn Jalloh MD [address] [place] [address] Contact with and (suspected) exposure to infections [...] Description 08/13/2025 11:15 AM EDT Office Visit [facility] MEDICINE [address] [place] [address] Brooklyn Jalloh MD [address] [place] [address] documented as of this encounter Procedures Procedure [...] AM EDT) T Spot TB Negative Negative [facility] Comment:A negative test resu lt does [...] as aquantitative test. TS PANEL A 0 [facility] TS PANEL B 0 [facility] Negative Control Passed [facility] Positive Control Passed [facility] Comment:For additional infor luke, please refer tohttp://education.[employer]/faq/KVI522(This link is being provided for informational/educational purposes only.)THIS TEST WAS PERFORMED AT:[facility] [place] [address]DNNXYFTMARY SNOW MD,PHD 04/02/2025 11:4 9 AM EDT 04/02/2025 1:07 PM EDT us Brooklyn Jalloh MD LAB BLOOD ORDERABLES Final Res ult [facility] [address] [place] [phone] * Hepatitis C Antibody with Reflex to HCV, RNA, Quantitative, Real-Time PCR (04/02/2025 11:49 AM EDT) Hepatitis C Antibody Nonreactive Nonreactive [facility] Comment:Antibodies to HCV no t detected; does not exclude early acuteHCV infection. Blood Venous blood specimen / Unknown 04/02/2025 11:49 AM EDT 04/02/2025 1:17 PM EDT us Brooklyn Jalloh MD LAB BLOOD ORDERABLES Final Res ult [facility] [address] [place] [address] [phone] * HIV-1/2 Antigen and Antibodies, Fourth Generation, with Reflexes (04/02/2025 11:49 AM EDT) HIV AB/AG Nonreactive Nonreactive [facility] Comment:HIV-1 p24 Ag and/or HIV-1/HIV-2 Ab not detected.A test result that is nonreactive does not exclude thepossibility of exposure to or infection with HIV-1 and/orHIV-2. Nonreactive results in this assay for individualswith prior exposure to HIV-1 and/or HIV-2 may be due toantigen and antibody levels that are below the limit ofdetection of this assay.The [employer] HIV Ag/Ab Combo assay result andsupplemental assay results should be interpreted inconjunction with the patient's clinical presentation,history and other laboratory results. If the results areinconsistent with clinical evidence, additional testing issuggested to confirm the result. Blood Venous blood specimen / Unknown 04/02/2025 11:49 AM EDT 04/02/2025 1:17 PM EDT us Brooklyn Jalloh MD LAB BLOOD ORDERABLES Final Res ult [facility] [address] [place] [phone] [phone] documented in this encounter Visit Diagnoses Diagnosis Contact with and (suspected) exposure to infections with a predominantly sexual mode of transmission- Primary documented in this encounter Additional Health Concerns Assessment Noted Time PHQ-9 Depression Total Score: 5 03/16/20 24 11:45 AM EDT documented as of this encounter Care Teams Non Destructive Testing Supervisor Relationship Specialty Start Date End Date Brooklyn Jalloh MD [address] [place] [address] PCP - General Family Medicine 07/17/21 documented as of this encounter
--- OUTSIDE RECORDS SUMMARY | 2025-07-27 14:13 | XMS_ITS | Encounter Summary ---
Author Organization [employer] Address 75 [facility] 7t [place] [address] Care Team Providers Care Shield Operator Name Role Phone Brooklyn Jalloh MD Primary Care Provider [phone] Encounter Details Date Type Department Care Team (Late st Contact Info) Description 01/28/2023 Orders Only [facility] MEDICINE [address] [place] [address] Sarika Jenkins CNM [address] [place] [address] Candidiasis of vulva and vagina (Primary Dx) [...] 11:15 AM EDT Office Visit [facility] MEDICINE [address] [place] [address] Brooklyn Jalloh MD [address] [place] [address] documented as of this encounter Visit Diagnoses Diagnosis Candidiasis of vulva and vagina- Primary documented in this encounter Care Teams Shield Operator Relationship Specialty Start Date End Date Brooklyn Jalloh MD [address] [place] [address] PCP - General Family Medicine 07/17/21 documented as of this encounter
--- OUTSIDE RECORDS SUMMARY | 2025-07-27 14:13 | XMS_ITS | Encounter Summary ---
Author Organization [employer] Address 75 [facility] 7t [place] [address] Care Team Providers Care Dialysis Nurse Name Role Phone Brooklyn Jalloh MD Primary Care Provider [phone] Encounter Details Date Type Department Care Team ([facility] Contact Info) Description 02/15/2023 Orders Only [facility] MEDICINE [address] [place] [address] [phone] Brooklyn Jalloh MD [address] [place] [address] [phone] Ingrown toenail (Primary Dx) Social History Tobacco [...] Upcoming Encounters Date Type Department Care Team ([facility] Contact Info) Description 08/13/2025 11:15 AM EDT Office Visit [facility] MEDICINE [address] [place] [address] Brooklyn Jalloh MD [address] [place] [address] documented as of this encounter Visit Diagnoses Diagnosis Ingrown toenail- Primary Ingrowing nail documented in this encounter Additional Health Concerns Assessment Noted Time PHQ-9 Depression Total Score: 6 02/05/20 23 11:27 AM EDT documented as of this encounter Care Teams Dialysis Nurse Relationship Specialty Start Date End Date Brooklyn Jalloh MD [address] [place] [address] PCP - General Family Medicine 07/17/21 documented as of this encounter
--- OUTSIDE RECORDS SUMMARY | 2025-07-27 14:13 | XMS_ITS | Encounter Summary ---
Author Organization [employer] Address [address] 7t [place] [address] Care Team Providers Care Chuck Tender Name Role Phone Brooklyn Jalloh MD Primary Care Provider [phone] Encounter Details Date Type Department Care Team (Late st Contact Info) Description 07/22/2025 Orders Only [facility] External Provider, [facility] Social History Tobacco Use Types Packs/Day Years [...] Description 08/13/2025 11:15 AM EDT Office Visit [facility] [address] [place] [address] Brooklyn Jalloh MD [address] [place] [address] documented as of this encounter Procedures Procedure Name Priority Date/Time Associated Diagnosis Comments CTA CHEST PE PROTOCAL Routine 07/22/2025 10:06 AM EDT SARS COV2/INFLUENZA A/B AND RSV RNA QL NAAT Routine 07/22/2025 9:11 AM EDT CBC Routine 07/22/2025 9:11 AM EDT MAGNESIUM Routine 07/22/2025 9:11 AM EDT COMPREHENSIVE METABOLIC PANEL Routine 07/22/2025 9:11 AM EDT XR CHEST 1 VIEW Routine 07/22/2025 7:52 AM EDT documented in this encounter Results * CTA Chest PE Protocal (07/22/2025 10:06 AM EDT) Anatomical Region Laterality Modality Body, Chest Computed Tomogra phy 07/22/2025 10:0 6 AM EDT Narrative 07/22/2025 10:51 AM EDT [address] [address] [address] Scan Report Signed Patient: Machelle Wooten MR#: [id number] : 1970 Acct:[id number] Age/Sex: 55 / F ADM Date: 07/22/25 Loc: HO.ED Attending Dr: Ordering Physician: Kaylie Choi Date of Service: 07/22/25 Procedure(s): CT angio chest PE protocol Accession Number(s): [id number] cc: Kaylie Choi; Brooklyn Jalloh Report Number: [id number]: Total DLP = 378.00 mGy-cm EXAMINATION: CT [...] Wisam Worley MD 07/22/2025 10:48 AM EDT RP Dictated By: Wisam Miranda MD Signed By: <Electronically signed by Wisam Cruz MD in OV> 07/22/25 1048 DD/ 1006 TD/TT: 07/22/25 1029 Pulley Mortiser Operator: Procedure Note Donotuseinterpreter, Image - 07/22/[address] [address] [address] Scan Report Signed Patient: Machelle Wooten#: [id number] : 1970Acct:[id number] Age/Sex: 55 / FADM Date: 07/22/25 Loc: .ED Attending Dr: Ordering Physician: Kaylie Choi Date of Service: 07/22/25 Procedure(s): CT angio chest PE protocol Accession Number(s): [id number] cc: Kaylie Choi; Brooklyn Jalloh Report Number: [id number]: Total DLP = 378.00 mGy-cm EXAMINATION: CT [...] Wisam Worley MD 07/22/2025 10:48 AM EDT Dictated By: Wisam Miranda MD Signed By: <Electronically signed by Wisam Cruz MDin OV> 07/22/25 1048 DD/ 1006 TD/TT: 07/22/25 1029 Pulley Mortiser Operator: [facility] External Provider IMG CT PROCEDURES Final Result * SARS-CoV-2 RNA, Influenza A/B, and RSV RNA, Ql NAAT (07/22/2025 9:11 AM EDT) Influenza A PCR NEGATIVE Negative [facility] Influenza B PCR NEGATIVE Negative [facility] Resp Syncy Virus RNA Qual PCR NEGATIVE Negative [facility] SARS COV2 PCR NEGATIVE Negative [facility] Comment:All test results mus t be [...] use by authorized laboratories.Testing performed on the [employer] GeneXpert utilizingreal-time RT-PCR.All SARS CoV2 and positive influenza A/B results arereported to [facility]. 07/22/2025 9:11 AM EDT 07/22/2025 9:15 AM EDT us Generic External Data Provider LAB MICROBIOLOGY - GENERAL ORDERABLES Final Result Performing Organization Address City/[facility]/ZIP Co de Phone Number [facility] [address] [place] [address] [phone] * Magnesium (07/22/2025 9:11 AM EDT) Magnesium 1.9 1.6 - 2.6 mg/dL [facility] 07/22/2025 9:11 AM EDT 07/22/2025 9:15 AM EDT Generic External Data Provider LAB BLOOD ORDERAB LES Final Result Performing Organization Address [facility] Co de Phone Number [facility] [address] [place] [address] [phone] * (ABNORMAL) Comprehensive Metabolic Panel (07/22/2025 9:11 AM EDT) Pathologist [facility] Sodium 141 135 - 145 mmol/L [facility] Potassium 3.7 3.3 - 5.1 mmol/L [facility] Chloride 106 96 - 108 mmol/L [facility] Carbon Dioxide 26 22 - 29 mmol/L [facility] Anion Gap 13 12 - 20 [facility] Urea Nitrogen (BUN) 16 9 - 16 mg/dL [facility] Creatinine, Serum 0.79 0.5 - 1.4 mg/dL [facility] Creatinine Clr Calc Pharmacy 86.6 [facility] Comment:Provided height and weight: 165.1 cm,89.1 kg.eGFR (calculated from the MDRD study equation) and eCrCl(calculated from the Cockcroft-Gault equation) are based ondifferent parameters and may not yield comparable results.If eCrCl result is absurd, please check patient'sheight/weight. Estimated Glomerular Filt Rate >60 [facility] Comment:Chronic Kidney Disea se: Estimated GFR < 60 mL/min/1.79f4Nzrsla Kidney Disease: Estimated GFR < 15 mL/min/1.73m2 Glucose 104 60 - 115 mg/dL [facility] Calcium 9.3 8.4 - 10.2 mg/dL [facility] Bilirubin, Total 0.5 0.0 - 1.0 mg/dL [facility] Aspartate Amino Transferase 27 5 - 31 U/L [facility] Alanine Aminotransferase 33(H) 0 - 31 U/L [facility] Total Protein 7.3 6.5 - 8.0 g/dL [facility] Albumin Level 4.4 3.5 - 5.0 g/dL [facility] Alkaline Phosphatase 166(H) 39 - 117 U/L [facility] 07/22/2025 9:11 AM EDT 07/22/2025 9:15 AM EDT us Generic External Data Provider LAB BLOOD ORDERAB LES Final Result [facility] [address] [place] [phone] * (ABNORMAL) CBC (07/22/2025 9:11 AM EDT) White Blood Count 11.3(H) 4.8 - 10.8 X10*3/uL [facility] Red Blood Count 4.80 4.20 - 5.50 X10*6/uL [facility] Hemoglobin 13.0 12.0 - 16.0 g/dl [facility] Hematocrit 40.5 37.0 - 47.0 % [facility] Mean Corpuscular Volume 84.4 80.0 - 98.0 fL [facility] Mean Corpuscular Hemoglobin 27.1 27.0 - 33.0 pg [facility] Mean Corpuscular HGB Conc 32.1 31.0 - 35.0 g/dl [facility] Red Cell Distribution Width 14.4 11.0 - 16.0 % [facility] Platelet Count 327 160 - 400 X10*3/uL [facility] Mean Platelet Volume 10.3 9.4 - 12.3 fL [facility] NRBC Pct Auto 0.0 0.0 - 0.2 /100WBC [facility] NRBC Abs Auto 0.000 0.0 - 0.012 X10*3/uL [facility] 07/22/2025 9:11 AM EDT 07/22/2025 9:15 AM EDT us Generic External Data Provider LAB BLOOD ORDERAB LES Final Result Performing Organization Address City/State/[facility] Co de Phone Number [facility] [address] [place] [phone] * XR Chest 1 View (07/22/2025 7:52 AM EDT) Anatomical Region Laterality Modality Chest Radiographic Zina ging 07/22/2025 7:52 AM EDT Narrative 07/22/2025 9:10 AM EDT [address] [address] XRay Report Signed Patient: Machelle Wooten MR#: [id number] : 1970 Acct:[id number] Age/Sex: 55 / F ADM Date: 07/22/25 Loc: .ED Attending Dr: Ordering Physician: Generic ED Physician Date of Service: 07/22/25 Procedure(s): XR chest 1V Accession Number(s): [id number] cc: [facility] ED Physician; Brooklyn Jalloh EXAMINATION: XR CHEST [...] Wisam Worley MD 07/22/2025 09:08 AM EDT Dictated By: Wisam Miranda MD Signed By: <Electronically signed by Wisam Cruz MD in OV> 07/22/25 0908 DD/ 075 TD/TT: 07/22/25 0903 Pulley Mortiser Operator: Procedure Note Josselyn, Image - 07/22/2025 [place] [address] XRay Report Signed Patient: Machelle WootenMR#: [id number] : 1970Acct:[id number] Age/Sex: 55 / FADM Date: 07/22/25 Loc: .ED Attending Dr: Ordering Physician: Generic ED Physician Date of Service: 07/22/25 Procedure(s): XR chest 1V Accession Number(s): [id number] cc: Generic ED Physician; Brooklyn Jalloh EXAMINATION: [...] Wisam Worley MD 07/22/2025 09:08 AM EDT Dictated By: Wisam Miranda MD Signed By: <Electronically signed by Wisam Cruz MDin OV> 07/22/25 0908 DD/ 0752 TD/TT: 07/22/25 0903 Pulley Mortiser Operator: [facility] External Provider IMG XR PROCEDURES Final Result documented in this encounter Visit Diagnoses Not on filedocumented in this encounter Additional Health Concerns Assessment Noted Time PHQ-9 Depression Total Score: 14 05/07/2 025 12:17 PM EDT documented as of this encounter Care Teams Chuck Tender Relationship Specialty Start Date End Date Brooklyn Jalloh MD [address] [place] [address] PCP - General Family Medicine 07/17/21 documented as of this encounter
--- OUTSIDE RECORDS SUMMARY | 2025-07-27 14:13 | XMS_ITS | Encounter Summary ---
Author Organization [employer] Address [address] [facility] 7t [place] [address] Care Team Providers Care Sign Board Erector Name Role Phone Brooklyn Jalloh MD Primary Care Provider [phone] Reason for Visit * Reason Onset Date Comments Referral 05/10/2023 Encounter Details Date Type Department Care Team ([facility] st Contact Info) Description 05/10/2023 Telephone [facility] [address] [place], [place] [phone] Brooklyn Jalloh MD [address] [place] [address] Referral Social History Tobacco Use Types Packs/Day [...] to her toenails. Please contact pt at [phone] Danish Speaker documented in this encounter Plan of Treatment Upcoming Encounters Date Type Department Care Team (Late st Contact Info) Description 08/13/2025 11:15 AM EDT Office Visit [facility] [address] [place] [address] Brooklyn Jalloh MD [address] [place] [address] documented as of this encounter Visit Diagnoses Not on filedocumented in this encounter Additional Health Concerns Assessment Noted Time PHQ-9 Depression Total Score: 6 02/05/20 23 11:27 AM EDT documented as of this encounter Care Teams Sign Board Erector Relationship Specialty Start Date End Date Brooklyn Jalloh MD [address] [place] [address] PCP - General Family Medicine 07/17/21 documented as of this encounter
--- OUTSIDE RECORDS SUMMARY | 2025-07-27 14:13 | XMS_ITS | Encounter Summary ---
Author Organization [employer] Address [address] [facility] 7t [place] [address] Care Team Providers Care Sewing Machine Repairer Name Role Phone Brooklyn Jalloh MD Primary Care Provider [phone] Reason for Visit * Reason Onset Date Comments Durable Medical Equipment 02/07/2023 Encounter Details Date Type Department Care Team (Late st Contact Info) Description 02/07/2023 Telephone [facility] [address] [place] [address] Brooklyn Jalloh MD [address] [place] [address] Durable Medical Equipment Social History Tobacco Use [...] status on walker please contact pt at [phone]. documented in this encounter Plan of Treatment Upcoming Encounters Date Type Department Care Team (Late st Contact Info) Description 08/13/2025 11:15 AM EDT Office Visit [facility] [address] [place], [place] [phone] Brooklyn Jalloh MD [address] [place] [address] documented as of this encounter Visit Diagnoses Not on filedocumented in this encounter Additional Health Concerns Assessment Noted Time PHQ-9 Depression Total Score: 6 02/05/20 23 11:27 AM EDT documented as of this encounter Care Teams Sewing Machine Repairer Relationship Specialty Start Date End Date Brooklyn Jalloh MD [address] [place] [address] PCP - General Family Medicine 07/17/21 documented as of this encounter
--- OUTSIDE RECORDS SUMMARY | 2025-07-27 14:14 | XMS_ITS | Encounter Summary ---
Author Organization [employer] [facility] Address [address] [facility] 7t [place] [address] Care Team Providers Care Accounting System Expert Name Role Phone Brooklyn Jalloh MD Primary Care Provider [phone] Encounter Details Date Type Department Care Team (Latest Contact Info) Description 06/27/2022 Abstract [facility] CONVERSIONS Dental, Provider, DDS Social History Tobacco [...] Care Team ( st Contact Info) Description 08/13/2025 11:15 AM EDT Office Visit [facility] [address] [place] [address] Brooklyn Jalloh MD [address] [place] [address] documented as of this encounter Visit Diagnoses Not on filedocumented in this encounter Care Teams Accounting System Expert Relationship Specialty Start Date End Date Brooklyn Jalloh MD [address] [place] [address] PCP - General Family Medicine 07/17/21 documented as of this encounter
--- OUTSIDE RECORDS SUMMARY | 2025-07-27 14:14 | XMS_ITS | Encounter Summary ---
Author Organization [employer] Address [address] [facility] 7t [place] [address] Care Team Providers Care Asphalt Paving Foreman Name Role Phone Brooklyn Jalloh MD Primary Care Provider [phone] Reason for Visit * Reason Onset Date Comments Medication Question 11/19/2024 Encounter Details Date Type Department Care Team ([facility] st Contact Info) Description 11/19/2024 Telephone [facility] [address] [place] [address] Brooklyn Jalloh MD [address] [place] [address] Medication Question Social History Tobacco Use Types [...] Description 08/13/2025 11:15 AM EDT Office Visit [facility] [address] [place] [address] Brooklyn Jalloh MD [address] [place] [address] documented as of this encounter Visit Diagnoses Not on filedocumented in this encounter Additional Health Concerns Assessment Noted Time PHQ-9 Depression Total Score: 5 03/16/20 24 11:45 AM EDT documented as of this encounter Care Teams Asphalt Paving Foreman Relationship Specialty Start Date End Date Brooklyn Jalloh MD [address] [place], [place] [phone] PCP - General Family Medicine 07/17/21 documented as of this encounter
--- OUTSIDE RECORDS SUMMARY | 2025-07-27 14:14 | XMS_ITS | Encounter Summary ---
Author Organization [employer] [facility] Address [address] [facility] 7t [place] [address] Care Team Providers Care Product Development Worker Name Role Phone Brooklyn Jalloh MD Primary Care Provider [phone] Encounter Details Date Type Department Care Team (Latest Contact Info) Description 05/12/2019 Abstract [facility] CONVERSIONS Dental, Provider, DDS Social [...] 11:15 AM EDT Office Visit [facility] [address] [place] [address] Brooklyn Jalloh MD [address] [place] [address] documented as of this encounter Visit Diagnoses Not on filedocumented in this encounter Care Teams Product Development Worker Relationship Specialty Start Date End Date Brooklyn Jalloh MD [address] [place] [address] PCP - General Family Medicine 07/17/21 documented as of this encounter
--- OUTSIDE RECORDS SUMMARY | 2025-07-27 14:14 | XMS_ITS | Encounter Summary ---
Author Organization [employer] Address [address] [facility] 7t [place] [address] Care Team Providers Care Impregnator Name Role Phone Brooklyn Jalloh MD Primary Care Provider [phone] Reason for Visit * Reason Onset Date Comments Appointment Request 03/19/2025 Encounter Details Date Type Department Care Team ([facility] st Contact Info) Description 03/19/2025 Telephone [facility] [address] [place] [address] Brooklyn Jalloh MD [address] [place] [address] Appointment Request Social History Tobacco Use Types [...] Miscellaneous Notes * Telephone Encounter - [facility] - 03/19/2025 9:42 AM EDT Tc from pt requesting pap appointment with pcp. documented in this encounter Plan of Treatment Upcoming Encounters Date Type Department Care Team (Late st Contact Info) Description 08/13/2025 11:15 AM EDT Office Visit [facility] [address] [place] [address] Brooklyn Jalloh MD [address] [place] [address] documented as of this encounter Visit Diagnoses Not on filedocumented in this encounter Additional Health Concerns Assessment Noted Time PHQ-9 Depression Total Score: 5 03/16/20 24 11:45 AM EDT documented as of this encounter Care Teams Impregnator Relationship Specialty Start Date End Date Brooklyn Jalloh MD [address] [place] [address] PCP - General Family Medicine 07/17/21 documented as of this encounter
--- OUTSIDE RECORDS SUMMARY | 2025-07-27 14:14 | XMS_ITS | Encounter Summary ---
Author Organization [employer] Address [address] [facility] [facility] [address] 7[address] [place] [address] Care Team Providers Care Boiler House Inspector Name Role Phone Brooklyn Jalloh MD Primary Care Provider [phone] Encounter Details Date Type Department Care Team (Late st Contact Info) Description 03/10/2024 Orders Only [facility] [address] [place], [place] [phone] Brooklyn Jalloh MD [address] [place], [place] [phone] Social History Tobacco Use Types Packs/Day Years [...] [facility] [address] [place] [address] Brooklyn Jalloh MD [address] [place] [address] documented as of this encounter Visit Diagnoses Not on filedocumented in this encounter Additional Health Concerns Assessment Noted Time PHQ-9 Depression Total Score: 6 02/05/20 23 11:27 AM EDT documented as of this encounter Care Teams Boiler House Inspector Relationship Specialty Start Date End Date Brooklyn Jalloh MD [address] [place] [address] PCP - General Family Medicine 07/17/21 documented as of this encounter
--- OUTSIDE RECORDS SUMMARY | 2025-07-27 14:14 | XMS_ITS | Encounter Summary ---
Author Organization [employer] [facility] Address [address] [facility] 7t [place] [address] Care Team Providers Care Instructional Coordinator Name Role Phone Brooklyn Jalloh MD Primary Care Provider [phone] Encounter Details Date Type Department Care Team (Latest Contact Info) Description 04/06/2021 Abstract [facility] CONVERSIONS Dental, Provider, DDS Social History Tobacco [...] Description 08/13/2025 11:15 AM EDT Office Visit [facility] [address] [place] [address] Brooklyn Jalloh MD [address] [place] [address] documented as of this encounter Visit Diagnoses Not on filedocumented in this encounter Care Teams Instructional Coordinator Relationship Specialty Start Date End Date Brooklyn Jalloh MD [address] [place] [address] PCP - General Family Medicine 07/17/21 documented as of this encounter
--- OUTSIDE RECORDS SUMMARY | 2025-07-27 14:14 | XMS_ITS | Encounter Summary ---
Author Organization [employer] Address [address] 7[address] [place] [address] Care Team Providers Care Flag Football Coach Name Role Phone Brooklyn Jalloh MD Primary Care Provider [phone] Encounter Details Date Type Department Care Team (Late st Contact Info) Description 12/22/2023 Orders Only [facility] [address] [place], [place] [phone] Brooklyn Jalloh MD [address] [place], [place] [phone] Bronchitis (Primary Dx) Social History Tobacco Use [...] Description 08/13/2025 11:15 AM EDT Office Visit [facility] [address] [place] [address] Brooklyn Jalloh MD [address] [place] [address] documented as of this encounter Procedures Procedure Name Priority Date/Time Associated Diagnosis Comments CBC WITH AUTO DIFFERENTIAL Routine 12/25/2023 12:28 PM EST Bronchitis documented in this encounter Results * (ABNORMAL) CBC auto differential (12/25/2023 12:28 PM EST) White Blood Count 15.4(H) 4.8 - 10.8 X10*3/uL [facility] Red Blood Count 5.11 4.20 - 5.50 X10*6/uL [facility] Hemoglobin 13.7 12.0 - 16.0 g/dl [facility] Hematocrit 42.6 37.0 - 47.0 % [facility] Mean Corpuscular Volume 83.4 80.0 - 98.0 fL [facility] Mean Corpuscular Hemoglobin 26.8(L) 27.0 - 33.0 pg [facility] Mean Corpuscular HGB Conc 32.2 31.0 - 35.0 g/dl [facility] Red Cell Distribution Width 13.9 11.0 - 16.0 % [facility] Platelet Count 442(H) 160 - 400 X10*3/uL [facility] Mean Platelet Volume 10.1 9.4 - 12.3 fL [facility] Neutrophils Percent Auto 71.8 45 - 73 % [facility] Imm Gran Pct Auto 0.5(H) 0.0 - 0.4 % [facility] Lymphocytes Percent Auto 20.8 20 - 40 % [facility] Monocytes Percent Auto 6.7 2 - 11 % [facility] Eosinophils Percent Auto 0.1 0 - 4 % [facility] Basophils Percent Auto 0.1 0 - 2 % [facility] NRBC Pct Auto 0.0 0.0 - 0.2 /100WBC [facility] Neutrophils Absolute Auto 11.0(H) 2.0 - 8.3 x10*3/uL [facility] Imm Gran Abs Auto 0.08(H) 0.00 - 0.03 X10*3/uL [facility] Lymphocytes Absolute Auto 3.2 1.2 - 4.9 X10*3/uL [facility] Monocytes Absolute Auto 1.0 0.1 - 1.2 X10*3/uL [facility] Eosinophils Absolute Auto 0.0 0.0 - 0.4 X10*3/uL [facility] Basophils Absolute Auto 0.0 0.0 - 0.2 X10*3/uL [facility] NRBC Abs Auto 0.000 0.0 - 0.012 X10*3/uL [facility] Blood Venous blood specimen / Unknown 12/25/2023 12:28 PM EST 12/25/2023 1:09 PM EST us Brooklyn Jalloh MD LAB BLOOD ORDERABLES Final Res ult [facility] [address] [place] [address] [phone] documented in this encounter Visit Diagnoses Diagnosis Bronchitis- Primary Bronchitis, not specified as acute or chronic documented in this encounter Additional Health Concerns Assessment Noted Time PHQ-9 Depression Total Score: 6 02/05/20 23 11:27 AM EDT documented as of this encounter Care Teams Flag Football Coach Relationship Specialty Start Date End Date Brooklyn Jalloh MD [address] [place] [address] PCP - General Family Medicine 07/17/21 documented as of this encounter
--- OUTSIDE RECORDS SUMMARY | 2025-07-27 14:14 | XMS_ITS | Encounter Summary ---
Author Organization [employer] Address [address] [facility] [address] 7[address] [place] [address] Care Team Providers Care Instrumentation And Controls Technician Name Role Phone Brooklyn Jalloh MD Primary Care Provider [phone] Encounter Details Date Type Department Care Team (Latest Contact Info) Description 07/23/2025 Travel Social History Tobacco Use Types Packs/Day [...] Description 08/13/2025 11:15 AM EDT Office Visit [facility] [address] [place] [address] Brooklyn Jalloh MD [address] [place] [address] documented as of this encounter Visit Diagnoses Not on filedocumented in this encounter Additional Health Concerns Assessment Noted Time PHQ-9 Depression Total Score: 14 025 12:17 PM EDT documented as of this encounter Care Teams Instrumentation And Controls Technician Relationship Specialty Start Date End Date Brooklyn Jalloh MD [address] [place] [address] PCP - General Family Medicine 07/17/21 documented as of this encounter
--- OUTSIDE RECORDS SUMMARY | 2025-07-27 14:14 | XMS_ITS | Encounter Summary ---
Author Organization [employer] Address [address] [facility] [address] [place] [address] Care Team Providers Care Hot Molder Name Role Phone Brooklyn Jalloh MD Primary Care Provider [phone] Reason for Visit * Reason Comments Med Refill Encounter Details Date Type Department Care Team ([facility] st Contact Info) Description 05/18/2025 Refill [facility]INE [address] [place] [address] Brooklyn Jalloh MD [address] [place] [address] Social History Tobacco Use Types Packs/Day Years [...] Description 08/13/2025 11:15 AM EDT Office Visit [facility] MEDICINE [address] [place] [phone] Brooklyn Jalloh MD [address] [place] [phone] documented as of this encounter Visit Diagnoses Not on filedocumented in this encounter Additional Health Concerns Assessment Noted Time PHQ-9 Depression Total Score: 14 025 12:17 PM EDT documented as of this encounter Care Teams Hot Molder Relationship Specialty Start Date End Date Brooklyn Jalloh MD [address] [place] [phone] PCP - General Family Medicine 07/17/21 documented as of this encounter
--- OUTSIDE RECORDS SUMMARY | 2025-07-27 14:14 | XMS_ITS | Encounter Summary ---
Author Organization [employer] Address [address] [facility] [address] h [address] [place] [id number] Care Team Providers Care Commercial Appraiser Name Role Phone Brooklyn Jalloh MD Primary Care Provider [phone] Reason for Visit * Reason Onset Date Comments referral 11/29/2023 Encounter Details Date Type Department Care Team ([facility] st Contact Info) Description 11/29/2023 Telephone [facility] MEDICINE [address] [place], [place] [phone] Brooklyn Jalloh MD [address] [place] [address] referral Social History Tobacco Use Types Packs/Day [...] Tc from pt requesting a Referral for [facility] Gastrology with Dr. Aldrich @ [address] [place] [address] to be further Evaluated for her Diagnoses @ the [facility] of gastroenteritis. Please contact pt @ [phone] documented in this encounter Plan of Treatment Upcoming Encounters Date Type Department Care Team ([facility] st Contact Info) Description 08/13/2025 11:15 AM EDT Office Visit [facility] [address] [place] [address] Brooklyn Jalloh MD [address] [place] [address] documented as of this encounter Visit Diagnoses Not on filedocumented in this encounter Additional Health Concerns Assessment Noted Time PHQ-9 Depression Total Score: 6 02/05/20 23 11:27 AM EDT documented as of this encounter Care Teams Commercial Appraiser Relationship Specialty Start Date End Date Brooklyn Jalloh MD [address] [place] [address] PCP - General Family Medicine 07/17/21 documented as of this encounter
--- OUTSIDE RECORDS SUMMARY | 2025-07-27 14:14 | XMS_ITS | Encounter Summary ---
Author Organization [employer] Address [address] [facility] [address]t [place] [address] Care Team Providers Care Processing Associate Name Role Phone Brooklyn Jalloh MD Primary Care Provider [phone] Reason for Visit * Reason Comments Med Refill Encounter Details Date Type Department Care Team ([facility] Contact Info) Description 07/29/2023 Refill [facility] [address] [place], [place] [phone] Brooklyn Jalloh MD [address] [place] [address] [phone] Social History Tobacco Use Types Packs/Day Years [...] Description 08/13/2025 11:15 AM EDT Office Visit [facility] MEDICINE [address] [place] [address] [phone] Brooklyn Jalloh MD [address] [place] [address] [phone] documented as of this encounter Visit Diagnoses Not on filedocumented in this encounter Additional Health Concerns Assessment Noted Time PHQ-9 Depression Total Score: 6 02/05/20 23 11:27 AM EDT documented as of this encounter Care Teams Processing Associate Relationship Specialty Start Date End Date Brooklyn Jalloh MD [address] [place] [address] PCP - General Family Medicine 07/17/21 documented as of this encounter
--- OUTSIDE RECORDS SUMMARY | 2025-07-27 14:14 | XMS_ITS | Encounter Summary ---
Author Organization [employer] Address [address] [facility] 7[address] [place] [address] Care Team Providers Care Global Manager Name Role Phone Brooklyn Jalloh MD Primary Care Provider [phone] Reason for Visit * Reason Onset Date Comments CHARTPREP 07/22/2025 Encounter Details Date Type Department Care Team (Late st Contact Info) Description 07/22/2025 Telephone [facility]INE [address] [place] [address] Karley Smith MA CHARTPREP Social History Tobacco Use Types Packs/Day Years [...] encounter Miscellaneous Notes * Telephone Encounter - Karley Smith MA - 07/22/2025 2:03 PM EDT Chart Prep Labs: done Images: done Referrals: pt no showed on cardiology,ortho surgeon and physical therapy appointments Vaccines due: Covid, Flu, and PCV20 Screenings: mammogram due on 07/29/25 Overdue care gaps: Disability screen documented in this encounter Plan of Treatment Upcoming Encounters Date Type Department Care Team (Late st Contact Info) Description 08/13/2025 11:15 AM EDT Office Visit [facility]INE [address] [place] [address] Brooklyn Jalloh MD [address] [place] [address] documented as of this encounter Visit Diagnoses Not on filedocumented in this encounter Additional Health Concerns Assessment Noted Time PHQ-9 Depression Total Score: 14 025 12:17 PM EDT documented as of this encounter Care Teams Global Manager Relationship Specialty Start Date End Date Brooklyn Jalloh MD [address] [place] [phone] PCP - General Family Medicine 07/17/21 documented as of this encounter
--- OUTSIDE RECORDS SUMMARY | 2025-07-27 14:14 | XMS_ITS | Encounter Summary ---
Author Organization [employer] Address [address] [facility] 7t [place] [address] Care Team Providers Care Scallop Raker Name Role Phone Brooklyn Jalloh MD Primary Care Provider [phone] Encounter Details Date Type Department Care Team ([facility] Contact Info) Description 11/12/2022 Orders Only [facility] [address] [place] [address] [phone] Brooklyn Jalloh MD [address] [place] [address] [phone] Social History Tobacco Use Types Packs/Day Years [...] Date Type Department Care Team ([facility] Contact Info) Description 08/13/2025 11:15 AM EDT Office Visit [facility] [address] [place] [phone] Brooklyn Jalloh MD [address] [place] [address] [phone] documented as of this encounter Visit Diagnoses Not on filedocumented in this encounter Care Teams Scallop Raker Relationship Specialty Start Date End Date Brooklyn Jalloh MD [address] [place] [address] PCP - General Family Medicine 07/17/21 documented as of this encounter
--- OUTSIDE RECORDS SUMMARY | 2025-07-27 14:14 | XMS_ITS | Clinical Summary ---
Author Organization [employer] Address [address] [place] [address] Care Team Providers Care Collision Worker Name Role Phone Brooklyn Jalloh MD [...] directed by MD. 30 patch 1 Active predniSONE (Deltasone) 20 MG tablet Active lisinopril 5 MG tablet TAKE 1 TABLET BY MOUTH EVERY DAY Active HealthyLax 17 g packetIndications :Constipation, unspecified [...] GAS 90 tablet 3 025 2024 Discontinued loratadine (Claritin) 10 MG tabletIndications :Mild persistent asthma without complication TAKE 1 TABLET BY MOUTH EVERY DAY 90 tablet 3 025 2024 Discontinued azithromycin (Zithromax) 250 MG tabletIndications :Bronchitis Take 1 tablet (250 mg) by mouth Once per day for 5 days. Take two tablets the first day, then one tablet daily after that 6 tablet 025 2024 predniSONE (Deltasone) 20 MG tabletIndications :Bronchitis Take 2 tablets (40 mg) by mouth Once per day for 5 days. 10 tablet 025 2024 losartan (Cozaar) 25 MG tablet Take 0.5 tablets (12.5 mg) by mouth Once per day. 15 tablet 3 025 2024 Discontinued(P atient refused) Active Problems Problem Noted Date Diagnosed Date Acute left-sided low back pain 07/13/2025 Assessment & Plan (07/13/2025 2:52 PM EDT): Apply heat on affected area Continue to take pain medications as needed as prescribed I added today lidocaine patch to apply 1 daily as needed I offered PT referral patient declines at this moment Moderate persistent asthma 05/21/2025 Assessment & Plan [...] (08/12/2024 11:39 AM EDT): Continue followup with [facility] [place] [place] ortho for viscosupplementation Assessment & Plan (02/13/2023 [...] EDT): Diet controlled Will start going to [facility] with her daughter as well [...] Problem Noted Date Diagnosed Date Resolved Date Sore throat 05/21/2025 07/23/2025 Assessment & Plan (05/21/2025 5:16 PM EDT): Pt primary concerns is throat culture, requesting repeat, g/c chl sent Cough in adult patient 10/28/202402/04 COVID-19 10/28/2024 [...] Encounters Date Type Department Care Team Description 07/23/2025 11:00 AM EDT Office Visit [facility] [address] [place] [phone] Name, MD Raffi Moderate persistent asthma, unspecified whether complicated (Primary Dx) 07/23/2025 Travel 07/22/2025 Telephone [facility] [address] [place] [phone] Karley Smith MA CHARTPREP 07/22/2025 Orders Only [facility] External Provider, [facility] 07/20/2025 Telephone [facility] [address] [place] [phone] Brooklyn Jalloh MD Referral 07/19/2025 1:40 PM EDT Office Visit [facility] [address] [place] [phone] Zhane Gandhi MD Chronic cough (Primary Dx); Viral URI 07/19/2025 Travel 07/13/2025 1:40 PM EDT Office Visit [facility] [address] [place] [address] Lida Francisco MD Lower abdominal pain; Acute left-sided low back pain, unspecified whether sciatica present 07/13/2025 Travel 07/11/2025 Refill [facility] [address] [place] [address] Brooklyn Jalloh MD Biliary colic 07/06/2025 2:40 PM EDT Office Visit [facility] [address] [place] [phone] Zhane Gandhi MD Subacute cough (Primary Dx); Postnasal drip 07/06/2025 Travel 06/29/2025 Refill [facility] [address] [place] [address] Brooklyn Jalloh MD Constipation, unspecified constipation type 06/26/2025 10:00 AM EDT Office Visit [facility] [address] [place] [phone] Brooklyn Jalloh MD Bronchitis (Primary Dx); Sore throat; COPD with acute exacerbation ([facility]) 06/26/2025 Travel 06/21/2025 Refill [facility] [address] [place] [address] Raffi Mendoza MD Cough in adult patient 05/22/2025 9:20 AM EDT Office Visit [facility] [address] [place] [address] Shayy Ashraf NP Mild persistent asthma, unspecified whether complicated (Primary Dx) 05/22/2025 Travel 05/21/2025 4:00 PM EDT Office Visit [facility] [address] [place] [address] Shayy Ashraf NP Sore throat (Primary Dx); Moderate persistent asthma, unspecified whether complicated 05/21/2025 Telephone [facility] [address] [place] [address] Brooklyn Jalloh MD 05/21/2025 Telephone [facility] [address] [place] [address] Brooklyn Jalloh MD Results 05/18/2025 Refill [facility] [place] [address] Brooklyn Jalloh MD 05/17/2025 3:00 PM EDT Office Visit [facility] [address] Ludy Knutson MD Oropharyngeal candidiasis (Primary Dx); COPD with acute exacerbation (CMS/HCC); Screening examination for STI; Pharyngitis, unspecified etiology 05/17/2025 Orders Only [facility] [address] [place] [address] Ludy Knutson MD 05/17/2025 Travel 05/10/2025 Travel 05/07/2025 11:15 AM EDT Office Visit [address] [address] Brooklyn Jalloh MD Primary hypertension (Primary Dx); Prediabetes; Generalized anxiety disorder; Depression, recurrent (CMS/HCC); Calcific tendonitis of right shoulder; Fibromyalgia; Elevated alkaline phosphatase level 05/07/2025 10:00 AM EDT Office Visit [facility] [address] [place] [address] Javad Neville DDS 05/07/2025 Travel 05/06/[address] [address] Brooklyn Jalloh MD chart prep 05/01/[address] [address] Brooklyn Jalloh MD 04/30/2025 2:00 PM EDT Office Visit [facility] [address] [place] [address] Javad Neville DDS 04/28/2025 Patient Outreach [facility] [address] [place] [address] Brooklyn Jalloh MD Pre-visit Planning (SDSD screening completed on 01/26/2025) 04/26/2025 10:15 AM EDT Office Visit [facility] [address] [place] [address] Keily Foreman CNM Atrophic vaginitis (Primary Dx) 04/26/2025 Travel from Last 3 Months Immunizations Immunization Administration [...] housing situation today? I have stella sing 03/05/[address] you li [...] (197 lb) 07/23/2025 11:17 AM EDT Height 167.6 cm (5' 6 ) 07/13/2025 1:24 PM EDT Body Mass Index 31.8 07/13/2025 1:24 PM EDT Plan of Treatment Upcoming Encounters Date Type Department Care Team (Late st Contact Info) Description 08/13/2025 11:15 AM EDT Office Visit [facility] [address] [place] [address] Brooklyn Jalloh MD [address] [place] [address] Health Maintenance Due Date Last Done Comments CT Colonography 1970 FIT DNA/Cologuard 1970 FIT 1970 FOBT 1970 Sigmoidoscopy 1970 Pneumococcal Vaccine: 50+ Years (1 of 2 - PCV) 02/25/1987 COVID-19 Vaccine (4 - season) 2025 11/07/2021, 03/29/2021, 03/01/2021 Influenza Vaccine [...] X-Ray: Bitewings 05/08/2026 05/07/20 25, 08/24/2024, 10/01/2023 Disability Screening 07/23/2026 07/23/2025 Tobacco Screening 07/23/2026 07/23/2025 Dental X-Ray: Full Mouth 08/25/2027 08/24/2024, 04/26 [...] PE PROTOCAL Routine 07/22/2025 10:06 AM EDT MAGNESIUM Routine 07/22/2025 9:11 AM EDT COMPREHENSIVE METABOLIC PANEL Routine 07/22/2025 9:11 AM EDT CBC Routine 07/22/2025 9:11 AM EDT SARS COV2/INFLUENZA A/B AND RSV RNA QL NAAT Routine 07/22/2025 9:11 AM EDT XR CHEST [...] FOCUSED Routine 04/30/2025 2:00 PM EDT 9 OH RESIN-BASED COMPOSITE - 2 SURF, ANTERIOR Routine 04/30/2025 2:00 PM EDT 8 OH RESIN-BASED COMPOSITE - 2 SURF, ANTERIOR Routine [...] Recently Relevant to Health Maintenance Results * CTA Chest PE Protocal (07/22/2025 10:06 AM EDT) Anatomical Region Laterality Modality Body, Chest Computed Tomogra phy 07/22/2025 10:0 6 AM EDT Narrative 07/22/2025 10:[address] [address] [address] Scan Report Signed Patient: Machelle Wooten MR#: [id number] : 1970 Acct:[id number] Age/Sex: 55 / F ADM Date: 07/22/25 Loc: .ED Attending Dr: Ordering Physician: Kaylie Choi Date of Service: 07/22/25 Procedure(s): CT angio chest PE protocol Accession Number(s): [id number] cc: Kaylie Choi; Brooklyn Jalloh Report Number: [id number]: Total DLP = 378.00 mGy-cm EXAMINATION: CT [...] 07/22/25 1048 DD/ 1006 TD/TT: 07/22/25 1029 Police Officer: Procedure Note Dickter, Image - 07/22/[address] [place] [address] [address] Scan Report Signed Patient: Alice Wooten#: [id number] : 1970Acct:[id number] Age/Sex: 55 / FADM Date: 07/22/25 Loc: HO.ED Attending Dr: Ordering Physician: Kaylie Choi Date of Service: 07/22/25 Procedure(s): CT angio chest PE protocol Accession Number(s): [id number] cc: Kaylie Choi; Brooklyn Jalloh Report Number: [id number]: Total DLP = 378.00 mGy-cm EXAMINATION: CT [...] 07/22/25 1048 DD/ 1006 TD/TT: 07/22/25 1029 Police Officer: [facility] External Provider IMG CT PROCEDURES Final Result * SARS-CoV-2 RNA, Influenza A/B, and RSV RNA, Ql NAAT (07/22/2025 9:11 AM EDT) Influenza A PCR NEGATIVE Negative [facility] Influenza B PCR NEGATIVE Negative [facility] Resp Syncy Virus RNA Qual PCR NEGATIVE Negative [facility] SARS COV2 PCR NEGATIVE Negative [facility] Comment:All test results mus t [...] use by authorized laboratories.Testing performed on the The [employer] GeneXpert utilizingreal-time RT-PCR.All SARS CoV2 and positive influenza A/B results arereported to [facility]. 07/22/2025 9:11 AM EDT 07/22/2025 9:15 AM EDT Generic External Data Provider LAB MICROBIOLOGY - GENERAL ORDERABLES Final Result [facility] [address] [place] [phone] * (ABNORMAL) CBC (07/22/2025 9:11 AM EDT) White Blood Count 11.3(H) 4.8 - 10.8 X10*3/uL [facility] Red Blood Count 4.80 4.20 - 5.50 X10*6/uL [facility] Hemoglobin 13.0 12.0 - 16.0 g/dl [facility] Hematocrit 40.5 37.0 - 47.0 % [facility] Mean Corpuscular Volume 84.4 80.0 - 98.0 fL [facility] Mean Corpuscular Hemoglobin 27.1 27.0 - 33.0 pg [facility] Mean Corpuscular HGB Conc 32.1 31.0 - 35.0 g/dl [facility] Red Cell Distribution Width 14.4 11.0 - 16.0 % [facility] Platelet Count 327 160 - 400 X10*3/uL [facility] Mean Platelet Volume 10.3 9.4 - 12.3 fL [facility] NRBC Pct Auto 0.0 0.0 - 0.2 /100WBC [facility] NRBC Abs Auto 0.000 0.0 - 0.012 X10*3/uL [facility] 07/22/2025 9:11 AM EDT 07/22/2025 9:15 AM EDT us Generic External Data Provider LAB BLOOD ORDERAB LES Final Result [facility] [address] [place] [phone] * Magnesium (07/22/2025 9:11 AM EDT) Magnesium 1.9 1.6 - 2.6 mg/dL [facility] 07/22/2025 9:11 AM EDT 07/22/2025 9:15 AM EDT us Generic External Data Provider LAB BLOOD ORDERAB LES Final Result [facility] [address] [place] [phone] [phone] * (ABNORMAL) Comprehensive Metabolic Panel (07/22/2025 9:11 AM EDT) Sodium 141 135 - 145 mmol/L [facility] Potassium 3.7 3.3 - 5.1 mmol/L [facility] Chloride 106 96 - 108 mmol/L [facility] Carbon Dioxide 26 22 - 29 mmol/L [facility] Anion Gap 13 12 - 20 [facility] Urea Nitrogen (BUN) 16 9 - 16 mg/dL [facility] Creatinine, Serum 0.79 0.5 - 1.4 mg/dL [facility] Creatinine Clr Calc Pharmacy 86.6 [facility] Comment:Provided height and weight: 165.1 cm,89.1 kg.eGFR (calculated from the MDRD study equation) and eCrCl(calculated from the Cockcroft-Gault equation) are based ondifferent parameters and may not yield comparable results.If eCrCl result is absurd, please check patient'sheight/weight. Estimated Glomerular Filt Rate >60 [facility] Comment:Chronic Kidney Disea se: Estimated GFR < 60 mL/min/1.55e7Bhszcf Kidney Disease: Estimated GFR < 15 mL/min/1.73m2 Glucose 104 60 - 115 mg/dL [facility] Calcium 9.3 8.4 - 10.2 mg/dL [facility] Bilirubin, Total 0.5 0.0 - 1.0 mg/dL [facility] Aspartate Amino Transferase 27 5 - 31 U/L [facility] Alanine Aminotransferase 33(H) 0 - 31 U/L [facility] Total Protein 7.3 6.5 - 8.0 g/dL [facility] Albumin Level 4.4 3.5 - 5.0 g/dL [facility] Alkaline Phosphatase 166(H) 39 - 117 U/L [facility] 07/22/2025 9:11 AM EDT 07/22/2025 9:15 AM EDT us Generic External Data Provider LAB BLOOD ORDERAB LES Final Result [facility] [address] [place] [phone] * XR Chest 1 View (07/22/2025 7:52 AM EDT) Anatomical Region Laterality Modality Chest Radiographic Zina ging 07/22/2025 7:52 AM EDT Narrative 07/22/2025 9:10 AM EDT [address] [address] XRay Report Signed Patient: Machelle Wooten MR#: [id number] : 1970 Acct:[id number] Age/Sex: 55 / F ADM Date: 07/22/25 Loc: .ED Attending Dr: Ordering Physician: Generic ED Physician Date of Service: 07/22/25 Procedure(s): XR chest 1V Accession Number(s): [id number] cc: Generic ED Physician; Brooklyn Jalloh EXAMINATION: [...] 07/22/25 0908 DD/ 0752 TD/TT: 07/22/25 0903 Police Officer: Procedure Note Donotuseinterpreter, Image - 07/22/[address] [address] XRay Report Signed Patient: Machelle WootenMR#: [id number] : 1970Acct:[id number] Age/Sex: 55 / FADM Date: 07/22/25 Loc: HO.ED Attending Dr: Ordering Physician: Generic ED Physician Date of Service: 07/22/25 Procedure(s): XR chest 1V Accession Number(s): [id number] cc: Generic ED Physician; Brooklyn Jalloh EXAMINATION: [...] 07/22/25 0908 DD/ 0752 TD/TT: 07/22/25 0903 Police Officer: [facility] External Provider IMG XR PROCEDURES Final Result * Influenza B (ID NOW Rapid Molecular) (07/19/2025 1:59 PM EDT) Only the most recent of2 resultswithin the time period is included. Influenza B Negative Negative, Indeterminate [facility] Swab 07/19/2025 1:59 PM EDT us Zhane Gandhi MD POINT OF CARE TEST ENTER/EDIT ORDERABLES Final Result Performing Organization Address [facility] Co de Phone Number [facility] [address] [place] [phone] * Influenza A (ID NOW Rapid Molecular) (07/19/2025 1:59 PM EDT) Only the most recent of2 resultswithin the time period is included. Influenza A Negative Negative, Indeterminate [facility] Swab 07/19/2025 1:59 PM EDT Zhane Gandhi MD POINT OF CARE TEST ENTER/EDIT ORDERABLES Final Result Performing Organization Address [facility] Co de Phone Number [facility] [address] [place] [phone] * POCT Rapid COVID Ag (07/19/2025 1:59 PM EDT) Rapid COVID Ag Negative [facility] Swab 07/19/2025 1:59 PM EDT Zhane Gandhi MD POINT OF CARE TEST ENTER/EDIT ORDERABLES Final Result Performing Organization Address [facility] de Phone Number [facility] [address] [place] [phone] * XR Chest 2 Views (07/19/2025 1:29 PM EDT) Anatomical Region Laterality Modality Chest Radiographic Zina ging 07/19/2025 1:29 PM EDT Narrative 07/19/2025 2:36 PM EDT [facility] [address] [place] [address] XRay Report Signed Patient: Machelle Wooten MR#: [id number] : 1970 Acct:[id number] Age/Sex: 55 / F ADM Date: 07/19/25 Loc: HO.HHCX Attending Dr: Zhane Gandhi MD Ordering Physician: Zhane Gandhi MD Date of Service: 07/19/25 Procedure(s): XR chest 2V Accession Number(s): [id number] cc: Zhane Gandhi MD EXAMINATION: XR CHEST [...] 07/19/25 1433 DD/ 1329 TD/TT: 07/19/25 1400 Police Officer: Procedure Note Donotuseinterpreter, Image - 07/19/[address] [address] XRay Report Signed Patient: Machelle WootenMR#: [id number] : 1970Acct:[id number] Age/Sex: 55 / FADM Date: 07/19/25 Loc: HO.HHCX Attending Dr: Zhane Gandhi MD Ordering Physician: Zhane Gandhi MD Date of Service: 07/19/25 Procedure(s): XR chest 2V Accession Number(s): [id number] cc: Zhane Gandhi MD EXAMINATION: XR CHEST [...] 07/19/25 1433 DD/ 1329 TD/TT: 07/19/25 1400 Police Officer: us Zhane Gandhi MD IMG XR PROCEDURES Final Resul t * Culture, Urine, Routine (07/13/2025 1:40 PM EDT) Urine Urine specimen obtained by clean catch procedure / Unknown 07/13/2025 1:40 PM EDT 07/13/2025 4:41 PM EDT Comment:UACC Narrative [facility] - 07/15/2025 8:46 AM EDT Urine Culture Report Result Urine Culture < 10,000 cfu/ml Specimen Source: Urine clean catch us Lida Mackenzie MD LAB MICROBIOLOGY - NERAK ORDERABLES Final Result [facility] [address] [place] [address] [phone] * POCT urinalysis dipstick manually resulted (07/13/2025 [...] ID NOW (06/26/2025 10:41 AM EDT) Pathologist [facility] Coronavirus Antigen PCR Negative Negative, Indeterminate, None Detected, Invalid, Specimen unsatisfactory for evaluation, Weakly Positive, 2+ QC Media Lot # [id number] Lot# Expiration Date Swab 06/26/2025 10:4 1 AM EDT Brooklyn Jalloh MD POINT OF CARE TEST ENTER/EDIT ORDERABLES Final Result * POCT Rapid Strep A CANO ID NOW (06/26/2025 10:26 AM EDT) [facility] Rapid Strep A Screen Negative Negative, None Detected QC Media Lot # [id number] Lot# Expiration Date Swab 06/26/2025 10:2 6 AM EDT Brooklyn Jalloh MD POINT OF CARE TEST ENTER/EDIT ORDERABLES Final Result * Chlamydia/N. Gonorrhoeae RNA, TMA, Throat (05/21/2025 3:58 PM EDT) Only the most recent of2 resultswithin the time period is included. [facility] C. Trachomatis RNA TMA, Throat NOT DETECTED [facility] N. gonorrhoeae RNA TMA, Throat NOT DETECTED [facility] Comment:REFERENCE RANGE: NOT DETECTEDMethodology: Director Process Improvement Mediated Amplification (TMA) to detect RNA.The analytical performance characteristics of this assayhave been determined by [facility]. The modificationshave not been cleared or approved by the FDA. This assay hasbeen validated pursuant to the CLIA regulations and is usedfor clinical purposes.For additional information, please refer tohttps://education.[employer]/faq/YUJ411(This link is being provided for informational/educationalpurposes only.)THIS TEST WAS PERFORMED AT:[employer] [id number] [place] [address]RQTGABARBARA COMBS MD,PHD,[place]RA[place] Swab Structure of anterior portion of neck / Unknown 05/21/2025 3:58 PM EDT 05/21/2025 5:32 PM EDT Result [facility] Shayy Ashraf NP LAB MICROBIOLOGY - GENERAL ORDER [place] Final Result Performing Organization Address City/[facility]/ZIP Co de Phone Number [facility] [address] [place] [phone] * (ABNORMAL) POCT HGB A1C (05/07/2025 12:15 PM EDT) Pathologist [facility] Hemoglobin A1C 6.1(A) 4.0 - 6.0 % QC Media Lot # [id number] Blood 05/07/2025 12:1 5 PM EDT Result [facility] Brooklyn Jalloh MD POINT OF CARE TEST ENTER/EDIT ORDERABLES Final Result * POCT Glucose (05/07/2025 12:13 PM EDT) [facility] Glucose Blood, POC 126 60 - 200 mg/dL QC Media Lot # [id number] Lot# Expiration Date [id number] Blood Capillary blood specimen / Unknown 05/07/2025 12:13 PM EDT Result [facility] Brooklyn Jalloh MD POINT OF CARE TEST ENTER/EDIT ORDERABLES Final Result * Hepatitis C Antibody with Reflex to HCV, RNA, Quantitative, Real-Time PCR (04/02/2025 11:49 AM EDT) [facility] Hepatitis C Antibody Nonreactive Nonreactive [facility] Comment:Antibodies to HCV no t detected; does not exclude early acuteHCV infection. Blood Venous blood specimen / Unknown 04/02/2025 11:49 AM EDT 04/02/2025 1:17 PM EDT Result [facility] Brooklyn Jalloh MD LAB BLOOD ORDERABLES Final Res ult Performing Organization Address City/[facility]/ZIP Co de Phone Number [facility] [address] [place] [phone] [phone] * HIV-1/2 Antigen and Antibodies, Fourth Generation, with Reflexes (04/02/2025 11:49 AM EDT) HIV AB/AG Nonreactive Nonreactive [facility] Comment:HIV-1 p24 Ag and/or HIV-1/HIV-2 Ab not detected.A test result that is nonreactive does not exclude thepossibility of exposure to or infection with HIV-1 and/orHIV-2. Nonreactive results in this assay for individualswith prior exposure to HIV-1 and/or HIV-2 may be due toantigen and antibody levels that are below the limit ofdetection of this assay.The [employer] HIV Ag/Ab Combo assay result andsupplemental assay results should be interpreted inconjunction with the patient's clinical presentation,history and other laboratory results. If the results areinconsistent with clinical evidence, additional testing issuggested to confirm the result. Blood Venous blood specimen / Unknown 04/02/2025 11:49 AM EDT 04/02/2025 1:17 PM EDT us Brooklyn Jalloh MD LAB BLOOD ORDERABLES Final Res ult [facility] [address] [place] [phone] * Pap Smear (03/30/2025 12:07 PM EDT) Swab 03/30/2025 12:0 7 PM EDT 03/31/2025 6:00 AM EDT Narrative [facility] - 04/02/2025 12:35 PM EDT ----- ------- Name: Machelle Wooten Age/Sex: 55/F : 1970 Unit#: [id number] Attend Dr: KEILY FOREMAN CNM Re03/30/25 Status: DEP [facility] ----- ------- SPEC : [id number] RECD: 03/31/25 STATUS: ERNESTO ACEVEDOSheri NUM: [id number] KRYSTA: 03/30/25-[address] [facility] [address]: KEILY FOREMAN ENTERED: 03/31/25 SP TYPE: Pap Smr OTHR DR: ORDERED: Pap Smear Interpretation Satisfactory for evaluation. Negative for intraepithelial lesion or malignancy. No endocervical cells seen. HPV High Risk: Negative HPV Genotyping 16: Negative HPV Genotyping 18: Negative Clinical Information LMP:Unknown date Previous PAP test:2018 Material Received ThinPrep-Cervical ----- ------- Signed (signature on file) YAMILETH Torres ([facility]) 04/02/25 1235 ----- ------- END OF REPORT Keily Foreman [facility] LAB CYTOLOGY ORDERABLES F inal Result Performing Organization Address [facility]/ZIP Co de Phone Number [facility] [address] [place] [phone] * HPV DNA, Low/High Risk (03/30/2025 12:00 AM EDT) HPV High Risk Negative Negative [facility] HPV Genotype 16 Negative Negative [facility] HPV Genotype 18 Negative Negative [facility] Comment:HPV testing performe d at [facility] (CLIA#[id number]), [address] [place] [address].Testing for HPV was performed using the [employer]system. The presence of HPV in the female [...] 03/30/2025 03/31/2025 6:0 0 AM EDT Keily Alice [facility] LAB BLOOD ORDERABLES Julianne l Result Performing Organization Address [facility]/ZIP Co de Phone Number [facility] [address] [place] [phone] * BI US Breast Limited Right (08/18/2024) Anatomical Region Laterality Modality Breast Right Ultrasound Lilian Holcomb WILDLIFE OFFICER IMG US PROCEDURES Final Result * [...] LDL-C. Mitch SS et al. ARACELI. 2013;310(19): 4513-7636 (http://education.[employer]/faq/FDW021) Non-HDL Cholesterol 117 <130 mg/dL (calc) CONVERTED [...] Most Recently Relevant to Health Maintenance Insurance [facility] < 65 [facility] Care Teams Collision Worker Relationship Specialty Start Date End Date Brooklyn Jalloh MD [address] [place] [address] PCP - General Family Medicine 07/17/21
--- OUTSIDE RECORDS SUMMARY | 2025-07-27 14:14 | XMS_ITS | Encounter Summary ---
Author Organization [employer] Address [address] [facility] 7t [place] [address] Care Team Providers Care Transportation Aid Name Role Phone Brooklyn Jalloh MD Primary Care Provider [phone] Reason for Referral * Consultation (Routine) - Closed Specialty Diagnoses / Procedures Referred By Tenzin ahumada Referred To Contact Orthopaedic Surgery Diagnoses Primary osteoarthritis of both knees Brooklyn Jalloh MD [address] [place] [phone] Phone: tel: fax: [facility] [address] [place] [address] Phone: tel: Referral ID Status Reason Start Date Expiration Date V isits Requested Visits Authorized [id number] Closed Specialty Services Required 02/18/2024 02/17/2025 1 1 Encounter Details Date Type Department Care Team (Late st Contact Info) Description 02/18/2024 Orders Only [facility] [address] [place] [phone] Brooklyn Jalloh MD [address] [place] [phone] Primary osteoarthritis of both knees (Primary Dx) [...] Description 08/13/2025 11:15 AM EDT Office Visit [facility] [address] [place] [phone] Brooklyn Jalloh MD [address] [place] [address] Scheduled Referrals Name Type Priority Associated Diagnoses [...] PM EDT Narrative 03/09/2024 2:27 PM EDT [address] [address] XRay Report Signed Patient: Machelle Wooten MR#: [id number] : 1970 Acct:[id number] Age/Sex: 54 / F ADM Date: 03/09/24 Loc: HO.ED Attending Dr: Ordering Physician: Zack Lainez Date of Service: 03/09/24 Procedure(s): XR chest 2V Accession Number(s): [id number] cc: Brooklyn Jalloh; Zack Lainez EXAMINATION: XR [...] in OV> 03/09/24 1424 DD/ 1408 TD/TT: Plate Filler: CLEO Procedure Note Donotuseinterpreter, Image - 03/09/[address] [address] XRay Report Signed Patient: Machelle WootenMR#: [id number] : 1970Acct:[id number] Age/Sex: 54 / FADM Date: 03/09/24 Loc: HO.ED Attending Dr: Ordering Physician: Zack Lainez Date of Service: 03/09/24 Procedure(s): XR chest 2V Accession Number(s): [id number] cc: Brooklyn Jalloh; Zack Lainez EXAMINATION: XR [...] Jr, inOV> 03/09/24 1424 DD/ 1408 TD/TT: Plate Filler: CLEO [facility] External Provider IMG XR PROCEDURES Edited Result - Final documented in this encounter Visit Diagnoses Diagnosis Primary osteoarthritis of both knees- Primary documented in this encounter Additional Health Concerns Assessment Noted Time PHQ-9 Depression Total Score: 6 02/05/20 23 11:27 AM EDT documented as of this encounter Care Teams Transportation Aid Relationship Specialty Start Date End Date Brooklyn Jalloh MD [address] [place] [address] PCP - General Family Medicine 07/17/21 documented as of this encounter
--- OUTSIDE RECORDS SUMMARY | 2025-07-27 14:14 | XMS_ITS | Encounter Summary ---
Author Organization [employer] Address [address] [facility] 7t [place] [address] Care Team Providers Care Prefitter Doors Name Role Phone Brooklyn Jalloh MD Primary Care Provider [phone] Encounter Details Date Type Department Care Team (Late st Contact Info) Description 07/23/2023 Abstract [facility] [address] [place] [address] [phone] Brooklyn Jalloh MD [address] [place] [address] [phone] Social History Tobacco Use Types Packs/Day Years [...] 08/13/2025 11:15 AM EDT Office Visit [facility] [address] [place] [address] [phone] Brooklyn Jalloh MD [address] [place] [address] [phone] documented as of this encounter Visit Diagnoses Not on filedocumented in this encounter Additional Health Concerns Assessment Noted Time PHQ-9 Depression Total Score: 6 02/05/20 23 11:27 AM EDT documented as of this encounter Care Teams Prefitter Doors Relationship Specialty Start Date End Date Brooklyn Jalloh MD [address] [place] [address] PCP - General Family Medicine 07/17/21 documented as of this encounter
== END 2025-07-27 13:53 | disposition home or self-care (01) ==
LOC: HO.HPS 12:57
PROVIDERS: PCP General Practice; Visit Provider Internal Medicine Pulmonary Disease
DX: J45.909 Unspecified asthma, uncomplicated (principal); R05.9 Cough, unspecified; G47.33 Obstructive sleep apnea (adult) (pediatric)
CPT/HCPCS: 99214; G2211

== ENCOUNTER → 2025-07-27 12:56 | Outpatient (BNVA) | payer OTHER, SELFPAY | PROVIDERS: PCP General Practice; Visit Provider Internal Medicine Pulmonary Disease | DX: G47.33 Obstructive sleep apnea (adult) (pediatric) (principal); Z99.89 Dependence on other enabling machines and devices; K21.9 Gastro-esophageal reflux disease without esophagitis; R05.9 Cough, unspecified | CPT/HCPCS: 99212 ==

== ENCOUNTER 2025-08-04 08:51 | Emergency (ER) | payer OTHER, SELFPAY ==
--- NOTE | 2025-08-04 | ECG_ITS ---
Test Reason : CHEST PAIN Blood Pressure : */* mmHG Vent. Rate : 72 BPM Atrial Rate : 72 BPM P-R Int : 164 ms QRS Dur : 76 ms QT Int : 368 ms P-R-T Axes : 45 -3 29 degrees QTcB Int : 402 ms Normal sinus rhythm Minimal voltage criteria for LVH, may be normal variant ( R in aVL ) Cannot rule out Anterior infarct , age undetermined Abnormal ECG When compared with ECG of 09-Jul-2024 22:34, No significant change was found Referred By: Generic ED Physician Electronically Signed By: MERLYN BRINK MD
--- NOTE | ~2025-08-04 | XR_ITS ---
EXAMINATION: XR CHEST 1 VIEW HISTORY: cough, CP COMPARISON: Comparison is made with the prior examination dated 07/14/2025. FINDINGS: A single AP portable view of the chest performed at 10:38 AM is submitted. The lungs are expanded and clear. There is no pleural effusion, pneumothorax, or pulmonary vascular congestion. The heart is normal in size. The bones are intact. XR/XR chest 1V IMPRESSION: No acute cardiopulmonary abnormality. Electronically signed by: Lencho Benítez MD 08/04/2025 10:51 AM EDT
[2025-08-04 08:59] VITALS: BP 110/75; PULSE 80; RESP 18; TEMP 36.8; O2SAT 98; BMI 31.5
--- NOTE | 2025-08-04 09:04 | PC.NURSE ---
Took 500mg tylenol at 5am
--- NOTE | 2025-08-04 09:28 | ED.CHESTPAIN ---
HPI - Chest Pain General Chief Complaint: Chest Pain Stated Complaint: CP, headache Time Seen by Provider: 08/04/25 09:25 Source: patient and medical interpreter (Marine Fisheries Technician utilized) Mode of arrival: ambulatory Limitations: language barrier (Citizen Of [place]-speaking) History of Present Illness ED Provider: MADELIN Cueto HPI narrative: 55-year-old female with medical history of HTN, HLD, fibromyalgia, family history of CAD, presents to the ED due to chest pain and headache that began last night. Patient states last night when she went to bed she felt fine, took trazodone and buspirone for anxiety. Patient states she woke up in the middle of the night and felt a pressure-like sensation in the middle of her sternum. Patient states she took Tylenol around 7:00 a.m. which relieved her headache but did not relieve the chest pain. Patient states the chest pain is constant, worse when moving positions and with deep inspiration. Patient states yesterday she was outside gardening cutting down small plants and sticks but denies fall/trauma/injury. The chest pain was not associated with diaphoresis, nausea, lightheadedness or syncope. Additionally, patient states she was seen recently in the department on 07/22/2025 for asthma exacerbation, she was prescribed a 5 day course of prednisone when discharged from the department. Patient did follow up with truck caterer Dr. Fabian who prescribed Trelegy Ellipta inhaler, and a 7 day course of levofloxacin on 07/27/2025. Patient has been compliant with medications. Related Data Home Medications ?Medication ?Instructions ?Recorded ?Confirmed atorvastatin 20 mg tablet 20 mg PO DAILY 09/14/20 12/03/24 baclofen 10 mg tablet 10 mg PO DAILY 09/14/20 12/03/24 lisinopril 5 mg tablet 5 mg PO DAILY 09/14/20 12/03/24 omeprazole 20 mg capsule,delayed 20 mg PO DAILY 09/14/20 12/03/24 release trazodone 50 mg tablet 25 mg PO DAILY 09/14/20 12/03/24 acetaminophen 650 mg 650 mg PO Q8H 02/13/22 12/03/24 tablet,extended release (Tylenol 8 Hour) gabapentin 100 mg capsule 100 mg PO DAILY 02/13/22 12/03/24 simethicone 80 mg chewable tablet 80 mg PO Q8H PRN gas 02/01/23 12/03/24 (Gas Relief (simethicone)) fluoxetine 20 mg capsule 40 mg PO QAM 02/13/23 12/03/24 buspirone 5 mg tablet 10 mg PO BID 02/12/24 12/03/24 sucralfate 1 gram tablet 1 g PO BID 02/12/24 12/03/24 triamcinolone acetonide 0.1 % appl topical 02/12/24 12/03/24 topical cream metformin 500 mg tablet,extended 500 mg PO DAILY 10/14/24 12/03/24 release 24 hr Previous Rx's ?Medication ?Instructions ?Recorded leg brace (Knee Support Brace) #1 ea 09/28/20 lactulose 10 gram/15 mL oral 10 g (15 mL) PO DAILY PRN 02/07/22 solution constipation #237 mL ipratropium bromide 42 mcg (0.06 2 spray intranasal TID-QID PRN 02/07/24 %) nasal spray allergy symptoms 30 days #15 mL benzonatate 200 mg capsule 200 mg PO TID PRN cough #15 caps 03/09/24 ibuprofen 600 mg tablet 600 mg PO Q6H PRN pain #30 tabs 03/09/24 ondansetron 4 mg disintegrating 4 mg PO Q6H PRN nausea and 07/09/24 tablet vomiting #14 tabs cyclobenzaprine 10 mg tablet 10 mg PO TID PRN muscle spasm #10 03/20/25 tabs lidocaine 5 % topical patch 1 patch topical DAILY #15 ea 03/20/25 albuterol sulfate 90 mcg/actuation 2 puff inhalation QID PRN for 07/06/25 aerosol inhaler (Ventolin HFA) wheezing #18 grams fluticasone fur. 200 mcg-umeclid 1 inh inhalation DAILY #1 ea 07/27/25 62.5 mcg-vilant 25 mcg inhalat.powder (Trelegy Ellipta) levofloxacin 750 mg tablet 750 mg PO DAILY #7 tabs 07/27/25 colchicine 0.6 mg capsule 0.6 mg PO DAILY 120 days #120 caps 08/04/25 ibuprofen 800 mg tablet 800 mg PO TID 14 days #42 tabs 08/04/25 omeprazole 20 mg capsule,delayed 20 mg PO BID 2 weeks #28 caps 08/04/25 release Allergies Allergy/AdvReac Type Severity Reaction Status Date / Time shrimp (SHRIMP) Allergy Unknown UNKNOWN Verified 08/04/25 09:03 [facility] Past Medical History Medical History Other and unspecified hyperlipidemia Essential hypertension Family history of coronary artery disease Bilateral knee pain Chronic pain Fibromyalgia Surgical History History of cholecystectomy H/O section H/O lateral meniscus repair of left knee History of hysterectomy Family History Family History Father History of open heart surgery Brother Hypertension Mother Colon cancer Social History Social History Household Members Other:: son Housing: Apartment Alcohol intake: never Patient Tobacco Use Status: Never used Tobacco Advance Directives: No Advance Directives Information Provided: Yes Do you have a plan to hurt others: No Plan Current occupational status: disabled Current occupation: Right Handed Physical Exam Vital Signs: Vital Signs: Last Vital Signs Temp 98.3 F 08/04/25 08:59 Pulse 63 08/04/25 14:14 Resp 16 08/04/25 14:14 BP 104/64 08/04/25 14:14 Pulse Ox 99 08/04/25 14:14 O2 Del Method Room Air 08/04/25 14:14 BMI result Body Mass Index 31.5 GENERAL APPEARANCE: ?AxOx4, no acute distress. HEENT: ?NC, AT. MMM. EOMI, clear conjunctiva, oropharynx clear. NECK: ?Supple without lymphadenopathy.? No stiffness or restricted ROM. HEART:? Normal rate and regular rhythm, normal S1/S2, no m/r/g LUNGS:? Very mild expiratory wheeze with diminished lung sounds of B/L lung bases ABDOMEN: ?Soft, nontender, nondistended with good bowel sounds heard. BACK: No CVAT, no obvious deformity. EXTREMITIES: ?Without cyanosis, clubbing or edema. NEUROLOGICAL: ?Grossly nonfocal. Alert and oriented, moving all 4 extremities Skin: ?Warm and dry without any rash. Medications Administered Discontinued Medications Generic Name Dose Route Start Last Admin Trade Name Freq PRN Reason Stop Dose Admin Acetaminophen 975 mg 08/04/25 12:04 08/04/25 12:17 Acetaminophen 325 Mg Tablet PO 08/04/25 12:05 975 mg ONCE ONE Administration Ketorolac Tromethamine 30 mg 08/04/25 11:45 08/04/25 12:17 Ketorolac Tromethamine 30 Mg/Ml Vial IM 08/04/25 11:46 30 mg ONCE ONE Administration Ketorolac Tromethamine 30 mg 08/04/25 12:04 08/04/25 12:17 Ketorolac Tromethamine 30 Mg/Ml Vial IM 08/04/25 12:05 Not Given ONCE ONE Medical Decision Making Medical Decision Making MDM Narrative: 55-year-old female with medical history of HTN, HLD, family history of CAD presents to the ED due to a constant pressure-like midsternal chest pain that began last night awaiting patient from sleep. Patient reports the pain is exacerbated when moving positions especially from maxj-tx-zaxs, and on deep inspiration. The chest pain is not associated with nausea, diaphoresis, lightheadedness/syncope, palpitations. Patient has had episodes of chest pain in the past and saw [facility] cardiology in 2020, and was recommended to have a stress test however patient did not participate as she was nervous that she would experience shortness of breath while doing the test. Patient was recently seen in the department on 07/22/25 for asthma exacerbation had a cough for approximately 2 months. Patient was seen by truck caterer Dr. Fabian who prescribed Trelegy Ellipta inhaler, and a 7 day course of levofloxacin. Risk factors reviewed include obesity with a BMI of 31.6, HLD, and past family history where patient states her dad had a stroke, with open heart surgery and pacemaker placement. Patient has moderate heart score of 5. VS on initial observation-BP of 110/75, pulse rate of 80, respiratory rate of 18, afebrile with oral temperature of 98.3?, O2 saturation 98% on room air. On physical exam patient is nontoxic appearing, with no increased work of breathing, no pursed lip breathing, lungs with a mild expiratory wheeze, with diminished lung sounds of bilateral bases. Cardiac exam reveals normal sinus rhythm without murmurs/rubs/gallops, I am unable to reproduce chest pain when palpating along the chest wall. Plan: Labs, UA, viral serology, EKG, CXR, Course EKG reveals normal sinus rhythm with possible LVH, when compared with the prior taken 06/2024 no change was found troponins x2 negative at <2.7- patient was medicated with 30mg IV toradol without effect on her chest pain. CXR negative for acute cardiopulmonary processes Labs significant for leukocytosis of 15.7, without left shift, no electrolyte abnormality, random glucose mildly elevated at 123, CRP mildly elevated at 0.61, ESR WNL. Viral serology negative. I spoke to [employer]rer Dr. Brink who strongly suggested chest pain is most likely due to pericarditis and recommended 800 mg ibuprofen TID for 2 weeks with omeprazole to protect the stomach, and .6 colchicine for 6 months with outpatient follow up. Patient is understanding and agreeable to the plan Differential Diagnosis Differential Diagnoses: The differential diagnosis associated with the presentation includes ACS Dysrhythmia Electrolyte abnormality Viral illness Pneumonia Admission/Observation Consideration of admission/observation: Escalation of care including admission/observation considered Lab Data MDM Lab Attestation statement: I reviewed the patient's lab results. 08/04/25 09:33 08/04/25 09:33 Labs: Lab Results 08/04/25 08/04/25 Range/Units 09:33 11:48 WBC 15.7 H (4.8-10.8) X10*3/uL RBC 4.46 (4.20-5.50) X10*6/uL Hgb 12.3 (12.0-16.0) g/dl Hct 36.4 L (37.0-47.0) % MCV 81.6 (80.0-98.0) fL MCH 27.6 (27.0-33.0) pg MCHC 33.8 (31.0-35.0) g/dl RDW 14.3 (11.0-16.0) % Plt Count 323 (160-400) X10*3/uL MPV 9.9 (9.4-12.3) fL Immature Gran % (Auto) 0.3 (0.0-0.4) % Neut % (Auto) 71.1 (45-73) % Lymph % (Auto) 19.6 L (20-40) % Faulk % (Auto) 7.8 (2-11) % Eos % (Auto) 1.0 (0-4) % Baso % (Auto) 0.2 (0-2) % Lymph # (Auto) 3.1 (1.2-4.9) X10*3/uL Faulk # (Auto) 1.2 (0.1-1.2) X10*3/uL Eos # (Auto) 0.2 (0.0-0.4) X10*3/uL Baso # (Auto) 0.0 (0.0-0.2) X10*3/uL Abs Immat Gran (auto) 0.05 H (0.00-0.03) X10*3/uL Absolute Neuts (auto) 11.2 H (2.0-8.3) x10*3/uL Absolute Nucleated RBC 0.000 (0.0-0.012) X10*3/uL Nucleated RBC % (auto) 0.0 (0.0-0.2) /100WBC ESR 18 (0-20) MM/HR Sodium 141 (135-145) mmol/L Potassium 4.0 (3.3-5.1) mmol/L Chloride 106 (96-108) mmol/L Carbon Dioxide 25 (22-29) mmol/L Anion Gap 14 (12-20) BUN 13 (9-16) mg/dL Creatinine 0.67 (0.5-1.4) mg/dL Estim Creat Clear Calc 100.3 Estimated GFR > 60 Random Glucose 123 H (60-115) mg/dL Calcium 9.2 (8.4-10.2) mg/dL Troponin I High Sens < 2.7 < 2.7 (<3.5-17.0) ng/L C-Reactive Protein 0.61 H (< or = 0.50) mg/dL Urine Color Yellow Urine Appearance Clear Urine pH 5.5 (5.0-9.0) Ur Specific [place] 1.010 (1.005-1.025) Urine Protein Negative (Neg-Trace) mg/dL Urine Glucose (UA) Negative (Negative) mg/dL Urine Ketones Negative (Negative) mg/dL Urine Blood Negative (Negative) Urine Nitrite Negative (Negative) Ur Leukocyte Esterase Negative (Negative) COVID-19 (RISHI) Negative (Negative) COVID-19 Clin Com See Note Influenza Type A (ERIKA) Negative (Negative) Influenza Type B (ERIKA) Negative (Negative) Influenza A & B Note See Note Independent Interpretation I performed an independent interpretation of an: EKG Interpretation: I personally interpreted the EKG which reveals normal sinus rhythm, without ST-elevation/depression, T-wave abnormality Normal sinus rhythm Minimal voltage criteria for LVH, may be normal variant ( R in aVL ) Cannot rule out Anterior infarct , age undetermined Abnormal ECG When compared with ECG of 09-Jul-2024 22:34, No significant change was found Referred By: Generic ED Physician Electronically Signed By: MERLYN BRINK MD I personally interpreted the chest x-ray which was negative for cardiomegaly, pulmonary edema, pleural effusion, infiltrates, consolidations, I agree with the radiologist's interpretation Radiology Impression Discussion of test interpretation with radiology: I have reviewed the radiologist's reading. Radiologist Impression: CXR FINDINGS: A single AP portable view of the chest performed at 10:38 AM is submitted. The lungs are expanded and clear. There is no pleural effusion, pneumothorax, or pulmonary vascular congestion. The heart is normal in size. The bones are intact. XR/XR chest 1V IMPRESSION: No acute cardiopulmonary abnormality. Electronically signed by: Lencho Benítez MD 08/04/2025 10:51 AM EDT RP Dictated By: Lencho Benítez MD Signed By: <Electronically signed by Lencho Benítez MD in OV> 08/04/25 1051 External Record Review External record reviewed: Inpatient record, Office record, Outpatient record and Prior outpatient labs Chronic Conditions Patient?s care impacted by: Hypertension and Other (HLD, fibromyalgia, family history of CAD) Social Determinants Patient?s care significantly limited by Social Determinants of Health including: Other Social Determinant of Health Discharge Plan Discharge Clinical Impression: Pericarditis Patient Disposition: Home, Self-Care Instructions: Acute Pericarditis (ED) Additional Instructions: You were evaluated in the ED today due to chest pain that began last night. Your labs did reveal an elevated white count however this may be elevated due to your recent asthma exacerbation, or because of your recent use of steroids. Your EKG revealed a normal sinus rhythm and your troponins which is an enzyme that is elevated in the heart is under stress or damage were both negative. Your COVID and flu tests were negative today. You were medicated in the department with 30 mg of Toradol, 975 mg of Tylenol. I spoke with our poultry farm worker Dr. Brink who suggests your chest pain is most likely due to pericarditis which is inflammation of the thin sac that encases your heart. He recommends you to take 800mg of ibuprofen 3 times per day and .6 of colchecine which is an anti inflammatory medication for 6 months. Additionally you will be prescribed omeprazole daily to protect your stomach while you are on these anti inflammatory medications. Please follow up with the cardiologists. You need further evaluation and management for pericarditis. I placed a referral for you, [facility]. Prescriptions: New ibuprofen 800 mg tablet 800 mg PO TID 14 Days Qty: 42 0RF omeprazole 20 mg capsule,delayed release(DR/EC) 20 mg PO BID 14 Days Qty: 28 0RF colchicine 0.6 mg capsule 0.6 mg PO DAILY 120 Days Qty: 120 0RF No Action (DME) Knee Support Brace Misc See Rx Instructions .ROUTE .MEDSUPPLY Qty: 1 0RF Rx Instructions: SWETA-PULL LITE, LT, L albuterol sulfate [Ventolin HFA] 90 mcg/actuation HFA aerosol inhaler 2 puff inhalation QID PRN (Reason: for wheezing) Qty: 18 6RF lactulose 10 gram/15 mL solution 10 g PO DAILY PRN (Reason: constipation) Qty: 237 0RF ondansetron 4 mg tablet,disintegrating 4 mg PO Q6H PRN (Reason: nausea and vomiting) Qty: 14 0RF benzonatate 200 mg capsule 200 mg PO TID PRN (Reason: cough) Qty: 15 0RF ibuprofen 600 mg tablet 600 mg PO Q6H PRN (Reason: pain) Qty: 30 0RF lidocaine 5 % adhesive patch,medicated 1 patch topical DAILY Qty: 15 0RF Rx Instructions: leave on most painful area for up to 12 hrs cyclobenzaprine 10 mg tablet 10 mg PO TID PRN (Reason: muscle spasm) Qty: 10 0RF omeprazole 20 mg capsule,delayed release(DR/EC) 20 mg PO DAILY trazodone 50 mg tablet 25 mg PO DAILY baclofen 10 mg tablet 10 mg PO DAILY lisinopril 5 mg tablet 5 mg PO DAILY atorvastatin 20 mg tablet 20 mg PO DAILY buspirone 5 mg tablet 10 mg PO BID gabapentin 100 mg capsule 100 mg PO DAILY acetaminophen [Tylenol 8 Hour] 650 mg tablet extended release 650 mg PO Q8H fluoxetine 20 mg capsule 40 mg PO QAM simethicone [Gas Relief (simethicone)] 80 mg tablet,chewable 80 mg PO Q8H PRN (Reason: gas) triamcinolone acetonide 0.1 % cream topical sucralfate 1 gram tablet 1 g PO BID metformin 500 mg tablet extended release 24 hr 500 mg PO DAILY levofloxacin 750 mg tablet 750 mg PO DAILY Qty: 7 0RF Trelegy Ellipta 200-62.5-25 mcg blister with device 1 inh inhalation DAILY Qty: 1 6RF ipratropium bromide 42 mcg (0.06 %) spray,non-aerosol 2 spray intranasal TID-QID PRN (Reason: allergy symptoms) 30 Days Qty: 15 6RF Rx Instructions: administer into each nostril Referrals: [facility] Cardiovascular Specialists [Provider Group] Print Language: Citizen Of [place]
[2025-08-04 09:36] LABS: MANUAL DIFF FLAG NO
[2025-08-04 09:39] LABS: Hematocrit 36.4 % (37.0-47.0); Hemoglobin 12.3 g/dl (12.0-16.0); Imm Gran Abs Auto 0.05 X10*3/uL (0.00-0.03); Imm Gran Pct Auto 0.3 % (0.0-0.4); Lymphocytes Absolute Auto 3.1 X10*3/uL (1.2-4.9); Mean Corpuscular HGB Conc 33.8 g/dl (31.0-35.0); Mean Corpuscular Hemoglobin 27.6 pg (27.0-33.0); Mean Corpuscular Volume 81.6 fL (80.0-98.0); NRBC Abs Auto 0.000 X10*3/uL (0.0-0.012); NRBC Pct Auto 0.0 /100WBC (0.0-0.2); Platelet Count 323 X10*3/uL (160-400); Red Blood Count 4.46 X10*6/uL (4.20-5.50); White Blood Count 15.7 X10*3/uL (4.8-10.8)
[2025-08-04 09:52] LABS: Anion Gap 14 (12-20); Blood Urea Nitrogen 13 mg/dL (9-16); Calcium 9.2 mg/dL (8.4-10.2); Carbon Dioxide 25 mmol/L (22-29); Chloride 106 mmol/L (96-108); Creatinine Clr Calc Pharmacy 100.3; Estimated Glomerular Filt Rate > 60; Potassium 4.0 mmol/L (3.3-5.1); Sodium 141 mmol/L (135-145)
[2025-08-04 10:03] LABS: Troponin-I High Sensitivity < 2.7 ng/L (<3.5-17.0)
--- OUTSIDE RECORDS SUMMARY | 2025-08-04 11:07 | XMS_ITS | Encounter Summary ---
Author Organization [employer] Address [address] [facility] 7[address] [place] [address] Care Team Providers Care Industrial Maintenance Instructor Name Role Phone Brooklyn Jalloh MD Primary Care Provider [phone] Reason for Visit * Reason Onset Date Comments triage 03/06/2023 Encounter Details Date Type Department Care Team ([facility] st Contact Info) Description 03/06/2023 Telephone [facility] [address] [place], [place] [phone] Broolkyn Jalloh MD [address] [place] [address] triage Social History Tobacco Use Types Packs/Day [...] 03/06/2023 3:39 PM EDT triage call with [facility] [employer] [place] [id number] Pt reports itchiness on face. Pt reports this has been for two days and has some red spots now. Pt has had this before in different areas of the body. Pt has seen superintendent laundry Cassie and jakob to help but doesn't know the name of the cream. Pt is offered to come to [facility] to be seen by provider but, declines. Pt wants only to have apt with superintendent laundry will send to PCP nurse team to [...] EDT Office Visit [facility] [address] [place] [phone] Brooklyn Jalloh MD [address] [place] [address] documented as of this encounter Visit Diagnoses Not on filedocumented in this encounter Additional Health Concerns Assessment Noted Time PHQ-9 Depression Total Score: 6 02/05/20 23 11:27 AM EDT documented as of this encounter Care Teams Industrial Maintenance Instructor Relationship Specialty Start Date End Date Brooklyn Jalloh MD [address] [place] [address] PCP - General Family Medicine 07/17/21 documented as of this encounter
--- OUTSIDE RECORDS SUMMARY | 2025-08-04 11:07 | XMS_ITS | Encounter Summary ---
Author Organization [employer] Address [address] [facility] [address] [place] [address] Care Team Providers Care Adjunct Writing Instructor Name Role Phone Brooklyn Jalloh MD Primary Care Provider [phone] Encounter Details Date Type Department Care Team ([facility] Contact Info) Description 02/15/2023 Orders Only [facility] [address] [place] [address] [phone] Brooklyn Jalloh MD [address] [place] [address] [phone] Ingrown toenail (Primary Dx) Social History Tobacco [...] Upcoming Encounters Date Type Department Care Team ([facility] Contact Info) Description 08/13/2025 11:15 AM EDT Office Visit [facility] [address] [place] [phone] Brooklyn Jalloh MD [address] [place] [address] documented as of this encounter Visit Diagnoses Diagnosis Ingrown toenail- Primary Ingrowing nail documented in this encounter Additional Health Concerns Assessment Noted Time PHQ-9 Depression Total Score: 6 02/05/20 23 11:27 AM EDT documented as of this encounter Care Teams Adjunct Writing Instructor Relationship Specialty Start Date End Date Brooklyn Jalloh MD [address] [place] [address] PCP - General Family Medicine 07/17/21 documented as of this encounter
--- OUTSIDE RECORDS SUMMARY | 2025-08-04 11:07 | XMS_ITS | Encounter Summary ---
Author Organization [employer] Address 75 [facility] 7t [place] [address] Care Team Providers Care Logistics Support Name Role Phone Brooklyn Jalloh MD Primary Care Provider [phone] Reason for Visit * Reason Onset Date Comments Referral 08/05/2024 Encounter Details Date Type Department Care Team ([facility] st Contact Info) Description 08/05/[address] [facility] [address] [place], [place] [phone] Brooklyn Jalloh MD 230 [place] [address] Referral Social History Tobacco Use Types Packs/Day [...] of the breast to be sent to [facility] [place] Address: [address] [place] [address] Fax- [phone] documented in this encounter Plan of Treatment Upcoming Encounters Date Type Department Care Team (Late st Contact Info) Description 08/13/2025 11:15 AM EDT Office Visit [facility] [address] [place] [address] Brooklyn Jalloh MD [address] [place] [address] documented as of this encounter Visit Diagnoses Not on filedocumented in this encounter Additional Health Concerns Assessment Noted Time PHQ-9 Depression Total Score: 5 03/16/20 24 11:45 AM EDT documented as of this encounter Care Teams Logistics Support Relationship Specialty Start Date End Date Brooklyn Jalloh MD [address] [place] [address] PCP - General Family Medicine 07/17/21 documented as of this encounter
--- OUTSIDE RECORDS SUMMARY | 2025-08-04 11:07 | XMS_ITS | Encounter Summary ---
Author Organization [employer] Address 75 [facility] 7t [place] [address] Care Team Providers Care Sap Bobj Developer Name Role Phone Brooklyn Jalloh MD Primary Care Provider [phone] Encounter Details Date Type Department Care Team (Late st Contact Info) Description 01/28/2023 Orders Only [facility] [address] [place] [address] Sarika Jenkins CNM [address] [place] [address] Candidiasis of vulva and vagina (Primary Dx) [...] Description 08/13/2025 11:15 AM EDT Office Visit [facility] [address] [place] [address] Brooklyn Jalloh MD [address] [place] [address] documented as of this encounter Visit Diagnoses Diagnosis Candidiasis of vulva and vagina- Primary documented in this encounter Care Teams Sap Bobj Developer Relationship Specialty Start Date End Date Brooklyn Jalloh MD [address] [place] [address] PCP - General Family Medicine 07/17/21 documented as of this encounter
--- OUTSIDE RECORDS SUMMARY | 2025-08-04 11:07 | XMS_ITS | Encounter Summary ---
Author Organization [employer] Address 75 [facility] 7t [place] [address] Care Team Providers Care Drafting Technician Name Role Phone Brooklyn Jalloh MD Primary Care Provider [phone] Reason for Visit * Reason Onset Date Comments Medication Question 08/20/2024 Results 08/20/2024 Encounter Details Date Type Department Care Team ([facility] st Contact Info) Description 08/20/2024 Telephone [facility] 230 [place] [address] Brooklyn Jalloh MD 230 [place], [place] [phone] Medication Question; Results Social History Tobacco Use [...] 2:40 PM EDT TC placed to pt [phone] via [employer] in regards to below message. RN informed [...] - 08/20/2024 3:47 PM EDT Noted. Per [facility], shoulder Xray performed on 08/11/24 however interpretation [...] BW. Pt verbalized understanding. Pt also requesting lxaetmk-hetxbqctmbgom-ihakyzny medication be Rx'd again for her migraines. [...] results: Labs Date when done: 08/18/24 Facility: [facility] Pt is also requesting Eletriptan medication for migraines but typewriter aligner did not see medication on med list. Please contact pt at [phone]. (Anguillan Speaker) documented in this encounter Plan of Treatment Upcoming Encounters Date Type Department Care Team (Late st Contact Info) Description 08/13/2025 11:15 AM EDT Office Visit [facility] [address] [place] [address] Brooklyn Jalloh MD 230 [place] [address] documented as of this encounter Visit Diagnoses Not on filedocumented in this encounter Additional Health Concerns Assessment Noted Time PHQ-9 Depression Total Score: 5 03/16/20 24 11:45 AM EDT documented as of this encounter Care Teams Drafting Technician Relationship Specialty Start Date End Date Brooklyn Jalloh MD 230 [place] [address] PCP - General Family Medicine 07/17/21 documented as of this encounter
--- OUTSIDE RECORDS SUMMARY | 2025-08-04 11:07 | XMS_ITS | Encounter Summary ---
Author Organization [employer] Address 75 [facility] 7t [place] [address] Care Team Providers Care Chief Lending Officer Name Role Phone Brooklyn Jalloh MD Primary Care Provider [phone] Reason for Visit * Reason Onset Date Comments Med Refill 02/04/2023 Encounter Details Date Type Department Care Team (Late st Contact Info) Description 02/04/2023 Telephone [facility] MEDICINE 230 [place] [address] Brooklyn Jalloh MD 230 [place] [address] Med Refill Social History Tobacco Use Types [...] things Several days 02/04/2023 11:27 AM Mimi Schwazr [place] Feeling down, depressed, or hopeless Several [...] 3:33 PM EDT Medications were sent to [facility] today 02/04/23. * Telephone Encounter - Ankur Villanueva - 02/04/2023 3:01 PM EDT Tc from pt requesting med refill Prednisone 20 mg Ibuprofen 800 mg Doxycycline 100 mg documented in this encounter Plan of Treatment Upcoming Encounters Date Type Department Care Team (Late st Contact Info) Description 08/13/2025 11:15 AM EDT Office Visit [facility]INE 230 [place] [address] Brooklyn Jalloh MD [address] [place], [place] [phone] documented as of this encounter Visit Diagnoses Not on filedocumented in this encounter Additional Health Concerns Assessment Noted Time PHQ-9 Depression Total Score: 6 02/05/20 23 11:27 AM EDT documented as of this encounter Care Teams Chief Lending Officer Relationship Specialty Start Date End Date Brooklyn Jalloh MD [address] [place] [address] PCP - General Family Medicine 07/17/21 documented as of this encounter
--- OUTSIDE RECORDS SUMMARY | 2025-08-04 11:07 | XMS_ITS | Encounter Summary ---
Author Organization [employer] Address 75 [facility] 7t [place] [address] Care Team Providers Care Corrections Lieutenant Name Role Phone Brooklyn Jalloh MD Primary Care Provider [phone] Reason for Visit * Reason Onset Date Comments Durable Medical Equipment 02/07/2023 Encounter Details Date Type Department Care Team (Late st Contact Info) Description 02/07/2023 Telephone [facility] MED[facility]INE [address] [place] [address] Brooklyn Jalloh MD 230 [place] [address] Durable Medical Equipment Social History Tobacco Use [...] status on walker please contact pt at [phone]. documented in this encounter Plan of Treatment Upcoming Encounters Date Type Department Care Team (Late st Contact Info) Description 08/13/2025 11:15 AM EDT Office Visit [facility] MED[facility]INE [address] [place], [place] [phone] Brooklyn Jalloh MD [address] [place] [address] documented as of this encounter Visit Diagnoses Not on filedocumented in this encounter Additional Health Concerns Assessment Noted Time PHQ-9 Depression Total Score: 6 02/05/20 23 11:27 AM EDT documented as of this encounter Care Teams Corrections Lieutenant Relationship Specialty Start Date End Date Brooklyn Jalloh MD [address] [place] [address] PCP - General Family Medicine 07/17/21 documented as of this encounter
--- OUTSIDE RECORDS SUMMARY | 2025-08-04 11:08 | XMS_ITS | Encounter Summary ---
Author Organization [employer] Address 75 [facility] 7t [place] [address] Care Team Providers Care Firmware Software Verification Engineer Name Role Phone Brooklyn Jalloh MD Primary Care Provider [phone] Reason for Visit * Reason Onset Date Comments Referral 05/10/2023 Encounter Details Date Type Department Care Team ([facility] st Contact Info) Description 05/10/2023 Telephone [facility] [address] [place], [place] [phone] Brooklyn Jalloh MD [address] [place] [address] Referral Social History Tobacco Use Types Packs/Day [...] to her toenails. Please contact pt at [phone] English Speaker documented in this encounter Plan of Treatment Upcoming Encounters Date Type Department Care Team (Late st Contact Info) Description 08/13/2025 11:15 AM EDT Office Visit [facility] [address] [place] [address] Brooklyn Jalloh MD 230 [place] [address] documented as of this encounter Visit Diagnoses Not on filedocumented in this encounter Additional Health Concerns Assessment Noted Time PHQ-9 Depression Total Score: 6 02/05/20 23 11:27 AM EDT documented as of this encounter Care Teams Firmware Software Verification Engineer Relationship Specialty Start Date End Date Brooklyn Jalloh MD [address] [place] [address] PCP - General Family Medicine 07/17/21 documented as of this encounter
--- OUTSIDE RECORDS SUMMARY | 2025-08-04 11:08 | XMS_ITS | Encounter Summary ---
Author Organization [employer] Address 75 [facility] 7t [place] [address] Care Team Providers Care Home Based Assistant Name Role Phone Brooklyn Jalloh MD Primary Care Provider [phone] Reason for Visit * Reason Onset Date Comments Appointment Request 03/19/2025 Encounter Details Date Type Department Care Team ([facility] st Contact Info) Description 03/19/2025 Telephone [facility] 230 [place] [address] Brooklyn Jalloh MD [address] [place] [address] Appointment Request Social History Tobacco Use Types [...] Description 08/13/2025 11:15 AM EDT Office Visit [facility] [address] [place] [address] Brooklyn Jalloh MD [address] [place] [address] documented as of this encounter Visit Diagnoses Not on filedocumented in this encounter Additional Health Concerns Assessment Noted Time PHQ-9 Depression Total Score: 5 03/16/20 24 11:45 AM EDT documented as of this encounter Care Teams Home Based Assistant Relationship Specialty Start Date End Date Brooklyn Jalloh MD 230 [place] [address] PCP - General Family Medicine 07/17/21 documented as of this encounter
--- OUTSIDE RECORDS SUMMARY | 2025-08-04 11:08 | XMS_ITS | Encounter Summary ---
Author Organization [employer] Address 75 [facility] 7t [place] [address] Care Team Providers Care Bartacker Name Role Phone Brooklyn Jalloh MD Primary Care Provider [phone] Encounter Details Date Type Department Care Team ([facility] Contact Info) Description 05/11/2023 Orders Only [facility] MED[facility]INE [address] [place] [address] [phone] Brooklyn Jalloh MD [address] [place] [address] [phone] Onychomycosis (Primary Dx) Social History Tobacco Use [...] Upcoming Encounters Date Type Department Care Team ([facility] Contact Info) Description 08/13/2025 11:15 AM EDT Office Visit [facility] [address] [place] [address] [phone] Brooklyn Jalloh MD 230 [place] [address] documented as of this encounter Visit Diagnoses Diagnosis Onychomycosis- Primary Dermatophytosis of nail documented in this encounter Additional Health Concerns Assessment Noted Time PHQ-9 Depression Total Score: 6 02/05/20 23 11:27 AM EDT documented as of this encounter Care Teams Bartacker Relationship Specialty Start Date End Date Brooklyn Jalloh MD 230 [place] [address] PCP - General Family Medicine 07/17/21 documented as of this encounter
--- OUTSIDE RECORDS SUMMARY | 2025-08-04 11:08 | XMS_ITS | Encounter Summary ---
Author Organization [employer] Address [address] [facility] [address] 7t [place] [address] Care Team Providers Care Chair And Couch Maker Name Role Phone Brooklyn Jalloh MD Primary Care Provider [phone] Encounter Details Date Type Department Care Team (Late st Contact Info) Description 08/26/2024 Orders Only [facility] MED[facility]INE 230 [place] [address] Brooklyn Jalloh MD [address] [place] [address] Elevated alkaline phosphatase level (Primary Dx) Social [...] AM EDT Office Visit [facility] [address] [place] [address] Brooklyn Jalloh MD [address] [place] [address] documented as of this encounter Procedures Procedure Name Priority Date/Time Associated Diagnosis Comments MITOCHONDRIAL ANTIBODY WITH REFLEX TO TITER Routine 04/02/2025 11:49 AM EDT Elevated alkaline phosphatase level documented in this encounter Results * Mitochondrial Antibody with Reflex to Titer (04/02/2025 11:49 AM EDT) Mitochondrial Antibodies NEGATIVE NEGATIVE [facility] Comment:THIS TEST WAS PERFOR MED AT:[facility] [address] [id number] GRIGGS MD Mitochondrial Ab Titer TNP [facility] Blood Venous blood specimen / Unknown 04/02/2025 11:49 AM EDT 04/02/2025 1:17 PM EDT us Brooklyn Jalloh MD LAB BLOOD ORDERABLES Final Res ult [facility] [address] [place] [address] [phone] documented in this encounter Visit Diagnoses Diagnosis Elevated alkaline phosphatase level- Primary documented in this encounter Additional Health Concerns Assessment Noted Time PHQ-9 Depression Total Score: 5 03/16/20 24 11:45 AM EDT documented as of this encounter Care Teams Chair And Couch Maker Relationship Specialty Start Date End Date Brooklyn Jalloh MD [address] [place] [address] PCP - General Family Medicine 07/17/21 documented as of this encounter
--- OUTSIDE RECORDS SUMMARY | 2025-08-04 11:08 | XMS_ITS | Encounter Summary ---
Author Organization [employer] Address 75 [facility] 7t [place] [address] Care Team Providers Care Customs And Border Protection Officer Name Role Phone Brooklyn Jalloh MD Primary Care Provider [phone] Encounter Details Date Type Department Care Team ([facility] st Contact Info) Description 05/21/2025 Telephone [facility] MED[facility]INE [address] [place], [place] [phone] Brooklyn Jalloh MD [address] [place] [address] Social History Tobacco Use Types Packs/Day Years [...] EDT Office Visit [facility] [address] [place] [address] Brooklyn Jalloh MD [address] [place] [address] documented as of this encounter Visit Diagnoses Not on filedocumented in this encounter Additional Health Concerns Assessment Noted Time PHQ-9 Depression Total Score: 14 025 12:17 PM EDT documented as of this encounter Care Teams Customs And Border Protection Officer Relationship Specialty Start Date End Date Brooklyn Jalloh MD 230 [place] [address] PCP - General Family Medicine 07/17/21 documented as of this encounter
--- OUTSIDE RECORDS SUMMARY | 2025-08-04 11:08 | XMS_ITS | Encounter Summary ---
Author Organization [employer] Address [address] [place] [address] 7t [place] [address] Care Team Providers Care Manager Requirements Name Role Phone Brooklyn Jalloh MD Primary Care Provider [phone] Reason for Referral * (Routine) - Closed Specialty Diagnoses / Procedures Referred By Tenzin t Referred To Contact Diagnoses Benign breast disease Procedures BI Mammogram Diagnostic same day Diagnostic same/ Day Right Brooklyn Jalloh MD [address] [place] [address] Phone: tel: fax: Referral ID Status Reason Start Date Expiration Date Visits Re quested Visits Authorized [id number] Closed 03/20/2023 09/16/2023 1 1 Encounter Details Date Type Department Care Team (Late st Contact Info) Description 03/20/2023 Orders Only [facility] MEDICINE [address] [place] [address] [phone] Brooklyn Jalloh MD [address] [place] [address] [phone] Benign breast disease (Primary Dx) Social History [...] [facility] MEDICINE [address] [place] [address] Brooklyn Jalloh MD [address] [place] [address] Scheduled Orders Name Type Priority Associated Diagnoses [...] as of this encounter Care Teams Manager Requirements Relationship Specialty Start Date End Date Brooklyn Jalloh MD [address] [place] [address] PCP - General Family Medicine 07/17/21 documented as of this encounter
--- OUTSIDE RECORDS SUMMARY | 2025-08-04 11:08 | XMS_ITS | Encounter Summary ---
Author Organization [employer] Address 75 [facility] 7t [place] [address] Care Team Providers Care Research Agricultural Engineer Name Role Phone Brooklyn Jalloh MD Primary Care Provider [phone] Reason for Visit * Reason Comments Med Refill Encounter Details Date Type Department Care Team ([facility] st Contact Info) Description 05/18/2025 Refill [facility] 230 [place] [address] Brooklyn Jalloh MD [address] [place] [address] Social History Tobacco Use Types Packs/Day Years [...] EDT Office Visit [facility] [address] [place] [phone] rBooklyn Jalloh MD [address] [place] [address] documented as of this encounter Visit Diagnoses Not on filedocumented in this encounter Additional Health Concerns Assessment Noted Time PHQ-9 Depression Total Score: 14 025 12:17 PM EDT documented as of this encounter Care Teams Research Agricultural Engineer Relationship Specialty Start Date End Date Brooklyn Jalloh MD [address] [place] [address] PCP - General Family Medicine 07/17/21 documented as of this encounter
--- OUTSIDE RECORDS SUMMARY | 2025-08-04 11:08 | XMS_ITS | Encounter Summary ---
Author Organization [employer] Address 75 [facility] 7t [place] [address] Care Team Providers Care Wharf Builder Name Role Phone Brooklyn Jalloh MD Primary Care Provider [phone] Encounter Details Date Type Department Care Team ([facility] st Contact Info) Description 03/19/2025 Orders Only [facility]INE 230 [place] [address] Brooklyn Jalloh MD 230 [place] [address] Contact with and (suspected) exposure to infections [...] Description 08/13/2025 11:15 AM EDT Office Visit [facility] MED[facility] [address] [place] [address] Brooklyn Jalloh MD 230 [place] [address] documented as of this encounter Procedures Procedure [...] AM EDT) T Spot TB Negative Negative [facility] Comment:A negative test resu lt [...] as aquantitative test. TS PANEL A 0 [facility] TS PANEL B 0 [facility] Negative Control Passed [facility] Positive Control Passed [facility] Comment:For additional infor luke, please refer tohttp://education.MSI/faq/TQY695(This link is being provided for informational/educational purposes only.)THIS TEST WAS PERFORMED AT:[employer]/[facility] [place] [address]LYTIAKOMARY SNOW MD,PHD 04/02/2025 11:4 9 AM EDT 04/02/2025 1:07 PM EDT us Brooklyn Jalloh MD LAB BLOOD ORDERABLES Final Res ult [facility] [address] [place] [phone] * Hepatitis C Antibody with Reflex to HCV, RNA, Quantitative, Real-Time PCR (04/02/2025 11:49 AM EDT) Hepatitis C Antibody Nonreactive Nonreactive [facility] Comment:Antibodies to HCV no t detected; does not exclude early acuteHCV infection. Blood Venous blood specimen / Unknown 04/02/2025 11:49 AM EDT 04/02/2025 1:17 PM EDT us Brooklyn Jalloh MD LAB BLOOD ORDERABLES Final Res ult [facility] [address] [place] [address] [phone] * HIV-1/2 Antigen and Antibodies, Fourth Generation, with Reflexes (04/02/2025 11:49 AM EDT) HIV AB/AG Nonreactive Nonreactive [facility] Comment:HIV-1 p24 Ag and/or HIV-1/HIV-2 Ab not detected.A test result that is nonreactive does not exclude thepossibility of exposure to or infection with HIV-1 and/orHIV-2. Nonreactive results in this assay for individualswith prior exposure to HIV-1 and/or HIV-2 may be due toantigen and antibody levels that are below the limit ofdetection of this assay.The [employer] HIV Ag/Ab Combo assay result andsupplemental assay results should be interpreted inconjunction with the patient's clinical presentation,history and other laboratory results. If the results areinconsistent with clinical evidence, additional testing issuggested to confirm the result. Blood Venous blood specimen / Unknown 04/02/2025 11:49 AM EDT 04/02/2025 1:17 PM EDT us Brooklyn Jalloh MD LAB BLOOD ORDERABLES Final Res ult [facility] [address] [place] [address] [phone] documented in this encounter Visit Diagnoses Diagnosis Contact with and (suspected) exposure to infections with a predominantly sexual mode of transmission- Primary documented in this encounter Additional Health Concerns Assessment Noted Time PHQ-9 Depression Total Score: 5 03/16/20 24 11:45 AM EDT documented as of this encounter Care Teams Wharf Builder Relationship Specialty Start Date End Date Brooklyn Jalloh MD [address] [place] [address] PCP - General Family Medicine 07/17/21 documented as of this encounter
--- OUTSIDE RECORDS SUMMARY | 2025-08-04 11:08 | XMS_ITS | Encounter Summary ---
Author Organization [employer] Address [address] [facility] [address] 7t [place] [address] Care Team Providers Care Africana Studies Professor Name Role Phone Brooklyn Jalloh MD Primary Care Provider [phone] Encounter Details Date Type Department Care Team (Late st Contact Info) Description 08/25/2024 Orders Only [facility] MEDICINE [address] [place] [address] Provider, MD Dipak Social History Tobacco Use [...] 11:15 AM EDT Office Visit [facility] MED[facility]INE [address] [place] [address] Brooklyn Jalloh MD 230 [place], [place] [phone] documented as of this encounter Procedures Procedure [...] documented as of this encounter Care Teams Africana Studies Professor Relationship Specialty Start Date End Date Brooklyn Jalloh MD [address] [place] [address] PCP - General Family Medicine 07/17/21 documented as of this encounter
--- OUTSIDE RECORDS SUMMARY | 2025-08-04 11:08 | XMS_ITS | Encounter Summary ---
Author Organization [employer] Address 75 [facility] 7t [place] [address] Care Team Providers Care Jamb Cutter Name Role Phone Brooklyn Jalloh MD Primary Care Provider [phone] Encounter Details Date Type Department Care Team ([facility] Contact Info) Description 03/07/2023 Orders Only [facility] MEDICINE [address] [place] [address] [phone] Brooklyn Jalloh MD [address] [place] [address] [phone] Rash of face (Primary Dx) Social History [...] Upcoming Encounters Date Type Department Care Team ([facility] Contact Info) Description 08/13/2025 11:15 AM EDT Office Visit [facility] MED[facility]INE [address] [place] [address] [phone] Brooklyn Jalloh MD 230 [place] [address] documented as of this encounter Visit Diagnoses Diagnosis Rash of face- Primary documented in this encounter Additional Health Concerns Assessment Noted Time PHQ-9 Depression Total Score: 6 02/05/20 23 11:27 AM EDT documented as of this encounter Care Teams Jamb Cutter Relationship Specialty Start Date End Date Brooklyn Jalloh MD [address] [place] [address] PCP - General Family Medicine 07/17/21 documented as of this encounter
--- OUTSIDE RECORDS SUMMARY | 2025-08-04 11:08 | XMS_ITS | Clinical Summary ---
Author Organization [employer] Address [address] [facility] [address] [place] [address] Care Team Providers Care Certified Drug Counselor Name Role Phone Brooklyn Jalloh MD Primary Care Provider [phone] Allergies Active Allergy Reactions Criticality Noted Date [...] Active Respiratory Therapy Supplies (Adult Aerosol Mask) [facility] WITH NEBULIZER 023 Active triamcinolone (Kenalog) 0.1 % cream MIX WITH cerave AND APPLY A THIN LAYER TO AFFECTED AREA(S) TWICE DAILY DIRECTED 80 g 3 024 Active ipratropium (Atrovent) 0.06 % nasal spray PLEASE SEE ATTACHED FOR DETAILED DIRECTIONS Active Respiratory Therapy Supplies (Nebulizer/Tubing /Mouthpiece) kit To be used with Nebulizer 1 kit 024 Active sucralfate (Carafate) 1 g tablet [...] BY MOUTH EVERY DAY 30 capsule 11 025 Active omeprazole (PriLOSEC) [address] [...] OR CHEW 90 tablet 3 025 Active nortriptyline (Pamelor) 10 MG capsule TAKE 1 CAPSULE BY MOUTH EVERY DAY AT BEDTIME NEEDED FOR BACK PAIN 90 capsule 3 Active Pain Reliever Plus 250-250-65 MG tablet TAKE 1 TABLET BY MOUTH EVERY 6 HOURS NEEDED FOR HEADACHE 30 tablet 3 025 Active cyclobenzaprine (Flexeril) 10 MG tablet take 1 tablet by mouth three times a day as needed for muscle spasm Active Ketotifen Fumarate 0.035 % solution Administer 1 drop into affected eye(s) in the morning and 1 drop in the evening. 10 mL 2 025 Active Fluticasone Furoate-Vilantero l (Breo Ellipta) 100-25 MCG/ACT aerosol powderIndications :Moderate persistent asthma, unspecified whether complicated Inhale 1 puff if needed in the morning and at bedtime (may increase for 1 week,). 1 each 025 Active Dextromethorphan HBr (Robitussin Lingering CoughGels) 15 MG capsuleIndication s:Mild persistent asthma, unspecified whether complicated Take 1 capsule by mouth if needed in the morning and at bedtime (cough/phlegm). 28 capsule 025 Active albuterol (2.5 MG/3ML) 0.083% nebulizer solutionIndicatio ns:Cough in adult patient INHALE 1 AMPULE USING A NEBULIZER EVERY 4 HOURS NEEDED FOR WHEEZING OR SHORTNESS OF BREATH 90 mL 11 025 Active HealthyLax 17 g packetIndications :Constipation, unspecified constipation type DISSOLVE 1 PACKET IN 8 OUNCES OF WATER, JUICE, COFFEE OR TEA AND DRINK BY MOUTH EVERY DAY NEEDED FOR CONSTIPATION 30 packet 6 025 Active cetirizine (ZyrTEC) 10 MG tablet Take 1 tablet (10 mg) by mouth Once per day. 30 tablet 025 2025 Active simethicone (Mylicon) 80 MG chewable tabletIndications :Biliary colic CHEW and SWALLOW 1 TABLET BY MOUTH EVERY 8 HOURS NEEDED FOR GAS 90 tablet 3 025 Active fluticasone (Flonase) 50 MCG/ACT nasal spray INSTILL 2 SPRAYS IN EACH NOSTRIL ONCE DAILY IN THE MORNING 16 g 025 Active lidocaine (Lidoderm) 5 % patchIndications: Acute left-sided low back pain, unspecified whether sciatica present Apply 1 patch topically Once per day. Remove & discard patch within 12 hours or as directed by MD. 30 patch 1 025 Active predniSONE (Deltasone) 20 MG tablet 025 Active docusate sodium (Colace) 100 MG capsule TAKE 1 CAPSULE BY MOUTH TWICE DAILY NEEDED FOR CONSTIPATION 180 capsule 025 Active lisinopril 5 MG tablet TAKE 1 TABLET BY MOUTH EVERY DAY 90 tablet 025 Active docusate sodium (Colace) 100 MG capsule TAKE 1 CAPSULE BY MOUTH TWICE DAILY NEEDED FOR CONSTIPATION 180 capsule 3 023 2024 Discontinued(R eorder (will not trigger notification to Pharmacy)) lisinopril 5 MG tablet TAKE 1 TABLET [...] DAY 90 tablet 3 025 2024 Discontinued losartan (Cozaar) 25 MG tablet Take 0.5 tablets (12.5 mg) by mouth Once per day. 15 tablet 3 025 2024 Discontinued(P atient refused) lisinopril 5 MG tablet TAKE 1 TABLET BY MOUTH EVERY DAY 025 2024 Discontinued(R eorder (will not trigger [...] (08/12/2024 11:39 AM EDT): Continue followup with [facility] for viscosupplementation Assessment & Plan (02/13/2023 [...] EDT): Diet controlled Will start going to [facility] with her daughter as well Anxiety [...] Encounters Date Type Department Care Team Description 08/04/2025 Orders Only GENERIC EXTERNAL DATA DEPARTMENT Provider, Generic External Data 07/30/2025 Refill [facility] [address] [place] [address] [phone] Brooklyn Jalloh MD 07/30/2025 Refill [facility] [address] [place] [address] [phone] Brooklyn Jalloh MD 07/23/2025 11:00 AM EDT Office Visit [facility] [address] [place] [address] [phone] Name, MD Raffi Moderate persistent asthma, unspecified whether complicated (Primary Dx) 07/23/2025 Travel 07/22/2025 Telephone [facility] [address] [place] [address] [phone] Karley Smtih MA CHARTPREP 07/22/2025 Orders Only [facility] External Provider, [facility] 07/20/2025 Telephone [facility] [address] [place] [address] [phone] Brooklyn Jalloh MD Referral 07/19/2025 1:40 PM EDT Office Visit [facility] [address] [place] [address] [phone] Zhane Gandhi MD Chronic cough (Primary Dx); Viral URI 07/19/2025 Travel 07/13/2025 1:40 PM EDT Office Visit [facility] [address] [place] [address] [phone] Lida Francisco MD Lower abdominal pain; Acute left-sided low back pain, unspecified whether sciatica present 07/13/2025 Travel 07/11/2025 Refill [facility] [address] [place] [address] [phone] Brooklyn Jalloh MD Biliary colic 07/06/2025 2:40 PM EDT Office Visit [facility] [address] [place] [address] [phone] Zhane Gandhi MD Subacute cough (Primary Dx); Postnasal drip 07/06/2025 Travel 06/29/2025 Refill [facility] [address] [place] [address] [phone] Brooklyn Jalloh MD Constipation, unspecified constipation type 06/26/2025 10:00 AM EDT Office Visit [facility] [address] [place] [address] [phone] Brooklyn Jalloh MD Bronchitis (Primary Dx); Sore throat; COPD with acute exacerbation ([facility]) 06/26/2025 Travel 06/21/2025 Refill [facility] [address] [place] [address] [phone] Raffi Mendoza MD Cough in adult patient 05/22/2025 9:20 AM EDT Office Visit [facility] [address] [place] [address] [phone] Shayy Ashraf NP Mild persistent asthma, unspecified whether complicated (Primary Dx) 05/22/2025 Travel 05/21/2025 4:00 PM EDT Office Visit [facility] [address] [place] [address] [phone] Shayy Ashraf NP Sore throat (Primary Dx); Moderate persistent asthma, unspecified whether complicated 05/21/2025 Telephone [facility] [address] [place] [address] [phone] Brooklyn Jalloh MD 05/21/2025 Telephone [facility] [address] [place] [address] [phone] Brooklyn Jalloh MD Results 05/18/2025 Refill [facility] [address] [place] [address] [phone] Brooklyn Jalloh MD 05/17/2025 3:00 PM EDT Office Visit [facility] [address] [place] [address] [phone] Ludy Knutson MD Oropharyngeal candidiasis (Primary Dx); COPD with acute exacerbation (CMS/HCC); Screening examination for STI; Pharyngitis, unspecified etiology 05/17/2025 Orders Only [facility] [address] [place] [address] [phone] Ludy Knutson MD 05/17/2025 Travel 05/10/2025 Travel 05/07/2025 11:15 AM EDT Office Visit [facility] [address] [place] [address] [phone] Brooklyn Jalloh MD Primary hypertension (Primary Dx); Prediabetes; Generalized anxiety disorder; Depression, recurrent (CMS/HCC); Calcific tendonitis of right shoulder; Fibromyalgia; Elevated alkaline phosphatase level 05/07/2025 10:00 AM EDT Office Visit [facility] [address] [place] [address] [phone] Javad Neville DDS 05/07/2025 Travel 05/06/2025 Telephone [facility] [address] [place] [address] [phone] Brooklyn Jalloh MD chart prep from Last 3 Months Immunizations Immunization Administration [...] 11:15 AM EDT Office Visit [facility] [address] [place] [address] Brooklyn Jalloh MD [address] [place] [address] Health Maintenance Due Date Last Done Comments CT Colonography 1970 FIT DNA/Cologuard 1970 FIT 1970 FOBT 1970 Sigmoidoscopy 1970 Pneumococcal Vaccine: 50+ Years (1 of 2 - PCV) 02/25/1987 COVID-19 Vaccine ( - season) 2025 11/07/2021, 03/29/2021, 03/01/2021 Influenza [...] Priority Date/Time Associated Diagnosis Comments XR CHEST 1 VIEW Routine 08/04/2025 10:37 AM EDT HIGH SENSITIVITY TROPONIN I Routine 08/04/2025 9:33 AM EDT BASIC METABOLIC PANEL Routine 08/04/2025 9:33 AM EDT CBC WITH AUTO DIFFERENTIAL Routine 08/04/2025 9:33 AM EDT CTA CHEST PE PROTOCAL Routine 07/22/2025 10:06 [...] PROBLEM FOCUSED Routine 05/07/2025 10:00 AM EDT PROPHYLAXIS - ADULT Routine 04/14/2025 1 [...] Relevant to Health Maintenance Results * XR Chest 1 View (08/04/2025 10:37 AM EDT) Only the most recent of2 resultswithin the time period is included. Anatomical Region Laterality Modality Chest Radiographic Zina ging 08/04/2025 10:3 7 AM EDT Narrative 08/04/2025 10:54 AM EDT [place] [address] XRay Report Signed Patient: Machelle Wooten MR#: [id number] : 1970 Acct:[id number] Age/Sex: 55 / F ADM Date: 08/04/25 Loc: HO.ED Attending Dr: Ordering Physician: Lilly Cueto PA-C Date of Service: 08/04/25 Procedure(s): XR chest 1V Accession Number(s): [id number] cc: Lilly Cueto PA-C; Shubham,[place] Reason for Exam: cough, CP EXAMINATION: XR CHEST 1 VIEW HISTORY: cough, CP COMPARISON: Comparison is made with the prior examination dated 07/14/2025. FINDINGS: A single AP portable view of the chest performed at 10:38 AM is submitted. The lungs are expanded and clear. There is no pleural effusion, pneumothorax, or pulmonary vascular congestion. The heart is normal in size. The bones are intact. XR/XR chest 1V IMPRESSION: No acute cardiopulmonary abnormality. Electronically signed by: Lencho Benítez MD 08/04/2025 10:51 AM EDT RP Dictated By: Lencho Benítez MD Signed By: <Electronically signed by Lencho Benítez MD in OV> 08/04/25 1051 DD/ 1037 TD/TT: 08/04/25 1045 Cinder Block Maker: Procedure Note Donotuseinterpreter, Image - 08/04/2025 [place] [address] XRay Report Signed Patient: Machelle WootenMR#: [id number] : 1970Acct:[id number] Age/Sex: 55 / FADM Date: 08/04/25 Loc: .ED Attending Dr: Ordering Physician: Lilly Cueto PA-C Date of Service: 08/04/25 Procedure(s): XR chest 1V Accession Number(s): [id number] cc: Lilly Cueto PA-C; Brooklyn Jalloh Reason for Exam: cough, CP EXAMINATION: XR CHEST 1 VIEW HISTORY: cough, CP COMPARISON: Comparison is made with the prior examination dated 07/14/2025. FINDINGS: A single AP portable view of the chest performed at 10:38 AM is submitted. The lungs are expanded and clear. There is no pleural effusion, pneumothorax, or pulmonary vascular congestion. The heart is normal in size. The bones are intact. XR/XR chest 1V IMPRESSION: No acute cardiopulmonary abnormality. Electronically signed by: Lencho Benítez MD 08/04/2025 10:51 AM EDT RP Dictated By: Lencho Benítez MD Signed By: <Electronically signed by Lencho Benítez MD in OV> 08/04/25 1051 DD/ 1037 TD/TT: 08/04/25 1045 Cinder Block Maker: [facility] External Provider IMG XR PROCEDURES Final Result * High Sensitivity Troponin I (08/04/2025 9:33 AM EDT) [facility] TROPONIN I HIGH SENSITIVITY <2.7 <3.5 - 17.0 ng/L [facility] Comment:The [place] high sens itivity Troponin-I results should beused in conjunction with other diagnostic information suchas ECG, clinical observations and information, and patientsymptoms to aid in the diagnosis of DE. 08/04/2025 9:33 AM EDT 08/04/2025 9:35 AM EDT Generic External Data Provider LAB BLOOD ORDERAB LES Final Result [facility] [address] [place] [address] [phone] * (ABNORMAL) CBC auto differential (08/04/2025 9:33 AM EDT) [facility] White Blood Count 15.7(H) 4.8 - 10.8 X10*3/uL [facility] Red Blood Count 4.46 4.20 - 5.50 X10*6/uL [facility] Hemoglobin 12.3 12.0 - 16.0 g/dl [facility] Hematocrit 36.4(L) 37.0 - 47.0 % [facility] Mean Corpuscular Volume 81.6 80.0 - 98.0 fL [facility] Mean Corpuscular Hemoglobin 27.6 27.0 - 33.0 pg [facility] Mean Corpuscular HGB Conc 33.8 31.0 - 35.0 g/dl [facility] Red Cell Distribution Width 14.3 11.0 - 16.0 % [facility] Platelet Count 323 160 - 400 X10*3/uL [facility] Mean Platelet Volume 9.9 9.4 - 12.3 fL [facility] Neutrophils Percent Auto 71.1 45 - 73 % [facility] Imm Gran Pct Auto 0.3 0.0 - 0.4 % [facility] Lymphocytes Percent Auto 19.6(L) 20 - 40 % [facility] Monocytes Percent Auto 7.8 2 - 11 % [facility] Eosinophils Percent Auto 1.0 0 - 4 % [facility] Basophils Percent Auto 0.2 0 - 2 % [facility] NRBC Pct Auto 0.0 0.0 - 0.2 /100WBC [facility] Neutrophils Absolute Auto 11.2(H) 2.0 - 8.3 x10*3/uL [facility] Imm Gran Abs Auto 0.05(H) 0.00 - 0.03 X10*3/uL [facility] Lymphocytes Absolute Auto 3.1 1.2 - 4.9 X10*3/uL [facility] Monocytes Absolute Auto 1.2 0.1 - 1.2 X10*3/uL [facility] Eosinophils Absolute Auto 0.2 0.0 - 0.4 X10*3/uL [facility] Basophils Absolute Auto 0.0 0.0 - 0.2 X10*3/uL [facility] NRBC Abs Auto 0.000 0.0 - 0.012 X10*3/uL [facility] 08/04/2025 9:33 AM EDT 08/04/2025 9:35 AM EDT us Generic External Data Provider LAB BLOOD ORDERAB LES Final Result [facility] [address] [place] [phone] * (ABNORMAL) Basic Metabolic Panel (08/04/2025 9:33 AM EDT) Sodium 141 135 - 145 mmol/L [facility] Potassium 4.0 3.3 - 5.1 mmol/L [facility] Chloride 106 96 - 108 mmol/L [facility] Carbon Dioxide 25 22 - 29 mmol/L [facility] Anion Gap 14 12 - 20 [facility] Urea Nitrogen (BUN) 13 9 - 16 mg/dL [facility] Creatinine, Serum 0.67 0.5 - 1.4 mg/dL [facility] Creatinine Clr Calc Pharmacy 100.3 [facility] Comment:Provided height and weight: 165.1 cm,86.001 kg.eGFR (calculated from the MDRD study equation) and eCrCl(calculated from the Cockcroft-Gault equation) are based ondifferent parameters and may not yield comparable results.If eCrCl result is absurd, please check patient'sheight/weight. Estimated Glomerular Filt Rate >60 [facility] Comment:Chronic Kidney Disea se: Estimated GFR < 60 mL/min/[id number] Kidney Disease: Estimated GFR < 15 mL/min/1.73m2 Glucose 123(H) 60 - 115 mg/dL [facility] Calcium 9.2 8.4 - 10.2 mg/dL [facility] 08/04/2025 9:33 AM EDT 08/04/2025 9:35 AM EDT us Generic External Data Provider LAB BLOOD ORDERAB LES Final Result [facility] [address] [place] [address] [phone] * CTA Chest PE Protocal (07/22/2025 10:06 AM EDT) Anatomical Region Laterality Modality Body, Chest Computed Tomogra phy 07/22/2025 10:0 6 AM EDT Narrative 07/22/2025 10:51 AM EDT [address] [address] [address] Scan Report Signed Patient: Machelle Wooten MR#: [id number] : 1970 Acct:[id number] Age/Sex: 55 / F ADM Date: 07/22/25 Loc: HO.ED Attending Dr: Ordering Physician: Kaylie Choi Date of Service: 07/22/25 Procedure(s): CT angio chest PE protocol Accession Number(s): [id number] cc: Kaylie Choi; ShubhamBrooklyn Report Number: [id number]: Total DLP = 378.00 mGy-cm EXAMINATION: CT [...] guidelines were followed. Electronically signed by: Wisam Wolrey MD 07/22/2025 10:48 AM EDT Dictated By: Wisam Miranda MD Signed By: <Electronically signed by Wisam Cruz MD in OV> 07/22/25 1048 DD/ 1006 TD/TT: 07/22/25 1029 Cinder Block Maker: Procedure Note Donotdavidinterpreter, Image - 07/22/[address] [address] [address] Scan Report Signed Patient: Machelle WootenMR#: [id number] : 1970Acct:[id number] Age/Sex: 55 / FADM Date: 07/22/25 Loc: HO.ED Attending Dr: Ordering Physician: Kaylie Choi Date of Service: 07/22/25 Procedure(s): CT angio chest PE protocol Accession Number(s): [id number] cc: Kaylie Choi; Brooklyn Jalloh Report Number: [id number]: Total DLP = 378.00 mGy-cm EXAMINATION: CT [...] 07/22/25 1048 DD/ 1006 TD/TT: 07/22/25 1029 Cinder Block Maker: [facility] External Provider IMG CT PROCEDURES Final Result * SARS-CoV-2 RNA, Influenza A/B, and RSV RNA, Ql NAAT (07/22/2025 9:11 AM EDT) Pathologist [facility] Influenza A PCR NEGATIVE Negative [facility] Influenza B PCR NEGATIVE Negative [facility] Resp Syncy Virus RNA Qual PCR NEGATIVE Negative [facility] SARS COV2 PCR NEGATIVE Negative [facility] Comment:All test results mus t [...] use by authorized laboratories.Testing performed on the netFactor GeneXpert utilizingreal-time RT-PCR.All SARS CoV2 and positive influenza A/B results arereported to [facility]. 07/22/2025 9:11 AM EDT 07/22/2025 9:15 AM EDT Generic External Data Provider LAB MICROBIOLOGY - GENERAL ORDERABLES Final Result [facility] [address] [place] [phone] * (ABNORMAL) CBC (07/22/2025 9:11 AM EDT) Pathologist [facility] White Blood Count 11.3(H) 4.8 - 10.8 X10*3/uL [facility] Red Blood Count 4.80 4.20 - 5.50 X10*6/uL [facility] Hemoglobin 13.0 12.0 - 16.0 g/dl [facility] Hematocrit 40.5 37.0 - 47.0 % [facility] Mean Corpuscular Volume 84.4 80.0 - 98.0 fL [facility] Mean Corpuscular Hemoglobin 27.1 27.0 - 33.0 pg [facility] Mean Corpuscular HGB Conc 32.1 31.0 - 35.0 g/dl [facility] Red Cell Distribution Width 14.4 11.0 - 16.0 % [facility] Platelet Count 327 160 - 400 X10*3/uL [facility] Mean Platelet Volume 10.3 9.4 - 12.3 fL [facility] NRBC Pct Auto 0.0 0.0 - 0.2 /100WBC [facility] NRBC Abs Auto 0.000 0.0 - 0.012 X10*3/uL [facility] 07/22/2025 9:11 AM EDT 07/22/2025 9:15 AM EDT us Generic External Data Provider LAB BLOOD ORDERAB LES Final Result Performing Organization Address [facility] Co de Phone Number [facility] [address] [place] [phone] * Magnesium (07/22/2025 9:11 AM EDT) Pathologist [facility] Magnesium 1.9 1.6 - 2.6 mg/dL [facility] 07/22/2025 9:11 AM EDT 07/22/2025 9:15 AM EDT us Generic External Data Provider LAB BLOOD ORDERAB LES Final Result Performing Organization Address [facility] Co de Phone Number [facility] [address] [place] [phone] * (ABNORMAL) Comprehensive Metabolic Panel (07/22/2025 9:11 AM EDT) Sodium 141 135 - 145 mmol/L [facility] Potassium 3.7 3.3 - 5.1 mmol/L [facility] Chloride 106 96 - 108 mmol/L [facility] Carbon Dioxide 26 22 - 29 mmol/L [facility] Anion Gap 13 12 - 20 [facility] Urea Nitrogen (BUN) 16 9 - 16 mg/dL [facility] Creatinine, Serum 0.79 0.5 - 1.4 mg/dL [facility] Creatinine Clr Calc Pharmacy 86.6 [facility] Comment:Provided height and weight: 165.1 cm,89.1 kg.eGFR (calculated from the MDRD study equation) and eCrCl(calculated from the Cockcroft-Gault equation) are based ondifferent parameters and may not yield comparable results.If eCrCl result is absurd, please check patient'sheight/weight. Estimated Glomerular Filt Rate >60 [facility] Comment:Chronic Kidney Disea se: Estimated GFR < 60 mL/min/1.90t5Lwxicr Kidney Disease: Estimated GFR < 15 mL/min/1.73m2 Glucose 104 60 - 115 mg/dL [facility] Calcium 9.3 8.4 - 10.2 mg/dL [facility] Bilirubin, Total 0.5 0.0 - 1.0 mg/dL [facility] Aspartate Amino Transferase 27 5 - 31 U/L [facility] Alanine Aminotransferase 33(H) 0 - 31 U/L [facility] Total Protein 7.3 6.5 - 8.0 g/dL [facility] Albumin Level 4.4 3.5 - 5.0 g/dL [facility] Alkaline Phosphatase 166(H) 39 - 117 U/L [facility] 07/22/2025 9:11 AM EDT 07/22/2025 9:15 AM EDT us Generic External Data Provider LAB BLOOD ORDERAB LES Final Result Performing Organization Address [facility]/ZIP Co de Phone Number [facility] [address] [place] [phone] * Influenza B (ID NOW Rapid Molecular) (07/19/2025 1:59 PM EDT) Only the most recent of2 resultswithin the time period is included. Influenza B Negative Negative, Indeterminate [facility] Swab 07/19/2025 1:59 PM EDT us Zhane Gandhi MD POINT OF CARE TEST ENTER/EDIT ORDERABLES Final Result Performing Organization Address [facility] Co de Phone Number [facility] [address] [place] [phone] * Influenza A (ID NOW Rapid Molecular) (07/19/2025 1:59 PM EDT) Only the most recent of2 resultswithin the time period is included. Influenza A Negative Negative, Indeterminate [facility] Swab 07/19/2025 1:59 PM EDT us Zhane Gandhi MD POINT OF CARE TEST ENTER/EDIT ORDERABLES Final Result Performing Organization Address [facility]/ZIP Co de Phone Number [facility] [address] [place] [phone] * POCT Rapid COVID Ag (07/19/2025 1:59 PM EDT) Rapid COVID Ag Negative [facility] Swab 07/19/2025 1:59 PM EDT Zhane Gandhi MD POINT OF CARE TEST ENTER/EDIT ORDERABLES Final Result Performing Organization Address City/[facility]/ZIP Co de Phone Number [facility] [address] [place] [phone] * XR Chest 2 Views (07/19/2025 1:29 PM EDT) Anatomical Region Laterality Modality Chest Radiographic Zina ging 07/19/2025 1:29 PM EDT Narrative 07/19/2025 2:36 PM EDT [address] [address] XRay Report Signed Patient: Machelle Wooten MR#: [id number] : 1970 Acct:[id number] Age/Sex: 55 / F ADM Date: 07/19/25 Loc: ALBERTO Attending Dr: Zhane Gandhi MD Ordering Physician: Zhane Gandhi MD Date of Service: 07/19/25 Procedure(s): XR chest 2V Accession Number(s): [id number] cc: Zhane Gandhi MD EXAMINATION: XR CHEST [...] 07/19/25 1433 DD/ 1329 TD/TT: 07/19/25 1400 Cinder Block Maker: Procedure Note Donotuseinterpreter, Image - 07/19/[address] [address] XRay Report Signed Patient: Machelle WootenMR#: [id number] : 1970Acct:[id number] Age/Sex: 55 / FADM Date: 07/19/25 Loc: JASWINDERCX Attending Dr: Zhane Gandhi MD Ordering Physician: Zhane Gandhi MD Date of Service: 07/19/25 Procedure(s): XR chest 2V Accession Number(s): [id number] cc: Zhane Gandhi MD EXAMINATION: XR CHEST [...] 07/19/25 1433 DD/ 1329 TD/TT: 07/19/25 1400 Cinder Block Maker: us Zhane Gandhi MD IMG XR PROCEDURES Final Resul t * Culture, Urine, Routine (07/13/2025 1:40 PM EDT) Urine Urine specimen obtained by clean catch procedure / Unknown 07/13/2025 1:40 PM EDT 07/13/2025 4:41 PM EDT Comment:[facility] - 07/15/2025 8:46 AM EDT Urine Culture Report Result Urine Culture < 10,000 cfu/ml Specimen Source: Urine clean catch us Lida Mackenzie MD LAB MICROBIOLOGY - GE NERAL ORDERABLES Final Result [facility] [address] [place] [phone] * POCT urinalysis dipstick manually resulted [...] CANO ID NOW (06/26/2025 10:41 AM EDT) [facility] Coronavirus Antigen PCR Negative Negative, Indeterminate, None Detected, Invalid, Specimen unsatisfactory for evaluation, Weakly Positive, 2+ QC Media Lot # [id number] Lot# Expiration Date ,026 Swab 06/26/2025 10:4 1 AM EDT Result [facility] Brooklyn Jalloh MD POINT OF CARE TEST ENTER/EDIT ORDERABLES Final Result * POCT Rapid Strep A CANO ID NOW (06/26/2025 10:26 AM EDT) [facility] Rapid Strep A Screen Negative Negative, None Detected QC Media Lot # [id number] Lot# Expiration Date ,026 Swab 06/26/2025 10:2 6 AM EDT Result [facility] Brooklyn Jalloh MD POINT OF CARE TEST ENTER/EDIT ORDERABLES Final Result * Chlamydia/N. Gonorrhoeae RNA, TMA, Throat (05/21/2025 3:58 PM EDT) Only the most recent of2 resultswithin the time period is included. [facility] C. Trachomatis RNA TMA, Throat NOT DETECTED [facility] N. gonorrhoeae RNA TMA, Throat NOT DETECTED [facility] Comment:REFERENCE RANGE: NOT DETECTEDMethodology: Director Radiation Oncology Mediated Amplification (TMA) to detect RNA.The analytical performance characteristics of this assayhave been determined by [employer]. The modificationshave not been cleared or approved by the FDA. This assay hasbeen validated pursuant to the CLIA regulations and is usedfor clinical purposes.For additional information, please refer tohttps://education.Snyppit/faq/TWP568(This link is being provided for informational/educationalpurposes only.)THIS TEST WAS PERFORMED AT:[facility] [place] [id number] [place] [address]JUUXDBARBARA COMBS MD,PHD,ISRRAEL Swab Structure of anterior portion of neck / Unknown 05/21/2025 3:58 PM EDT 05/21/2025 5:32 PM EDT Shayy Ashraf NP LAB MICROBIOLOGY - GENERAL ORDER [place] Final Result [facility] [address] [place] [address] [phone] * (ABNORMAL) POCT HGB A1C (05/07/2025 12:15 PM EDT) Hemoglobin A1C 6.1(A) 4.0 - 6.0 % QC Media Lot # [id number] Blood 05/07/2025 12:1 5 PM EDT Result [facility] Brooklyn Jalloh MD POINT OF CARE TEST ENTER/EDIT ORDERABLES Final Result * POCT Glucose (05/07/2025 12:13 PM EDT) Glucose Blood, POC 126 60 - 200 mg/dL QC Media Lot # [id number] Lot# Expiration Date Blood Capillary blood specimen / Unknown 05/07/2025 12:13 PM EDT Result [facility] Brooklyn Jalloh MD POINT OF CARE TEST ENTER/EDIT ORDERABLES Final Result * Hepatitis C Antibody with Reflex to HCV, RNA, Quantitative, Real-Time PCR (04/02/2025 11:49 AM EDT) Hepatitis C Antibody Nonreactive Nonreactive [facility] Comment:Antibodies to HCV no t detected; does not exclude early acuteHCV infection. Blood Venous blood specimen / Unknown 04/02/2025 11:49 AM EDT 04/02/2025 1:17 PM EDT us Brooklyn Jalloh MD LAB BLOOD ORDERABLES Final Res ult [facility] [address] [place] [phone] [phone] * HIV-1/2 Antigen and Antibodies, Fourth Generation, with Reflexes (04/02/2025 11:49 AM EDT) HIV AB/AG Nonreactive Nonreactive [facility] Comment:HIV-1 p24 Ag and/or HIV-1/HIV-2 Ab not detected.A test result that is nonreactive does not exclude thepossibility of exposure to or infection with HIV-1 and/orHIV-2. Nonreactive results in this assay for individualswith prior exposure to HIV-1 and/or HIV-2 may be due toantigen and antibody levels that are below the limit ofdetection of this assay.The [employer] HIV Ag/Ab Combo assay result andsupplemental assay results should be interpreted inconjunction with the patient's clinical presentation,history and other laboratory results. If the results areinconsistent with clinical evidence, additional testing issuggested to confirm the result. Blood Venous blood specimen / Unknown 04/02/2025 11:49 AM EDT 04/02/2025 1:17 PM EDT us Brooklyn Jalloh MD LAB BLOOD ORDERABLES Final Res ult [facility] [address] [place] [phone] [phone] * Pap Smear (03/30/2025 12:07 PM EDT) Swab 03/30/2025 12:0 7 PM EDT 03/31/2025 6:00 AM EDT [facility] - 04/02/2025 12:35 PM EDT ----- ------- Name: Machelle Wooten Age/Sex: 55/F : 1970 Unit#: [id number] Attend Dr: KEILY FOREMAN CNM Re03/30/25 Status: [facility] REF Location: .HHCLNP Disch: ----- ------- SPEC : [id number] RECD: 03/31/25 STATUS: ERNESTO HERNANDEZ NUM: [id number] KRYSTA: 03/30/25-1207 [facility] DR: KEILY FOREMAN CNM ENTERED: 03/31/25 SP TYPE: Pap Smr OT DR: ORDERED: Pap Smear Interpretation Satisfactory for evaluation. Negative for intraepithelial lesion or malignancy. No endocervical cells seen. HPV High Risk: Negative HPV Genotyping 16: Negative HPV Genotyping 18: Negative Clinical Information LMP:Unknown date Previous PAP test:2018 Material Received ThinPrep-Cervical ----- ------- Signed (signature on file) Drew Ribeiro CT (ASCP) 04/02/25 1235 ----- ------- END OF REPORT us Keily Foreman [facility] LAB CYTOLOGY ORDERABLES F inal Result [facility] [address] [place] [phone] * HPV DNA, Low/High Risk (03/30/2025 12:00 AM EDT) HPV High Risk Negative Negative [facility] HPV Genotype 16 Negative Negative [facility] HPV Genotype 18 Negative Negative [facility] Comment:HPV testing performe d at [facility] (CLIA#[id number]), [address] [place] [address].Testing for HPV was performed using the Shahida [...] detected. 03/30/2025 03/31/2025 6:0 0 AM EDT us Keily Foreman CNM LAB BLOOD ORDERABLES Julianne l Result [facility] [address] [place] [address] [phone] * BI US Breast Limited Right (08/18/2024) Anatomical Region Laterality Modality Breast Right Ultrasound Lilian Zhang DORMITORY KEEPER IMG US PROCEDURES Final Result * (ABNORMAL) [...] LDL-C. Mitch SS et al. ARACELI. 2013;310(19): 5401-0238 (http://education.[employer]/faq/SDK724) Non-HDL Cholesterol 117 <130 mg/dL (calc) CONVERTED [...] Clin. Lipidol. 2015;9:129-169. 10/11/2022 8:02 AM EST us Brooklyn Jalloh MD LAB BLOOD ORDERABLES Final Res ult [facility] from Last 3 Months or Most Recently Relevant to Health Maintenance Insurance [facility] < [address] [facility] Care Teams Certified Drug Counselor Relationship Specialty Start Date End Date Brooklyn Jalloh MD [address] [place] [address] PCP - General Family Medicine 07/17/21
--- OUTSIDE RECORDS SUMMARY | 2025-08-04 11:09 | XMS_ITS | Encounter Summary ---
Author Organization [employer] Address [address] [facility] 7t [place] [address] Care Team Providers Care Nutter Up Name Role Phone Brooklyn Jalloh MD Primary Care Provider [phone] Reason for Referral * Consultation (Routine) - Closed Specialty Diagnoses / Procedures Referred By Tenzin ahumada Referred To Contact Orthopaedic Surgery Diagnoses Primary osteoarthritis of both knees Brooklyn Jalloh MD [address] [place] [address] Phone: tel: fax: [facility] [address] [place] [address] Phone: tel: Referral ID Status Reason Start Date Expiration Date V isits Requested Visits Authorized [id number] Closed Specialty Services Required 02/18/2024 02/17/2025 1 1 Encounter Details Date Type Department Care Team (Late st Contact Info) Description 02/18/2024 Orders Only [facility] [address] [place] [phone] Brooklyn Jalloh MD [address] [place] [address] Primary osteoarthritis of both knees (Primary Dx) [...] your housing situation today? I have stella callse 09/09/[address] you li [...] Description 08/13/2025 11:15 AM EDT Office Visit [facility] [address] [place] [address] Brooklyn Jallho MD [address] [place] [address] Scheduled Referrals Name Type Priority Associated Diagnoses [...] PM EDT Narrative 03/09/2024 2:27 PM EDT [address] [address] XRay Report Signed Patient: Machelle Wooten MR#: [id number] : 1970 Acct:[id number] Age/Sex: 54 / F ADM Date: 03/09/24 Loc: HO.ED Attending Dr: Ordering Physician: Zack Lainez Date of Service: 03/09/24 Procedure(s): XR chest 2V Accession Number(s): [id number] cc: Brooklyn Jalloh; Zack Lainez EXAMINATION: XR [...] in OV> 03/09/24 1424 DD/ 1408 TD/TT: Yard Truck Driver: CLEO Procedure Note Donotuseinterpreter, Image - 03/09/[address] [address] XRay Report Signed Patient: Machelle WootenMR#: [id number] : 1970Acct:[id number] Age/Sex: 54 / FADM Date: 03/09/24 Loc: HO.ED Attending Dr: Ordering Physician: Zack Lainez Date of Service: 03/09/24 Procedure(s): XR chest 2V Accession Number(s): [id number] cc: Brooklyn Jalloh; Zack Lainez EXAMINATION: XR [...] Jr, inOV> 03/09/24 1424 DD/ 1408 TD/TT: Yard Truck Driver: CLEO [facility] External Provider IMG XR PROCEDURES Edited Result - Final documented in this encounter Visit Diagnoses Diagnosis Primary osteoarthritis of both knees- Primary documented in this encounter Additional Health Concerns Assessment Noted Time PHQ-9 Depression Total Score: 6 02/05/20 23 11:27 AM EDT documented as of this encounter Care Teams Nutter Up Relationship Specialty Start Date End Date Brooklyn Jalloh MD [address] [place] [address] PCP - General Family Medicine 07/17/21 documented as of this encounter
--- OUTSIDE RECORDS SUMMARY | 2025-08-04 11:09 | XMS_ITS | Encounter Summary ---
Author Organization [employer] Address [address] [facility] 7t [place] [address] Care Team Providers Care Clinic Supervisor Name Role Phone Brooklyn Jalloh MD Primary Care Provider [phone] Reason for Visit * Reason Onset Date Comments Medication Question 11/19/2024 Encounter Details Date Type Department Care Team ([facility] st Contact Info) Description 11/19/2024 Telephone [facility] [address] [place] [address] Brooklyn Jalloh MD [address] [place] [address] Medication Question Social History Tobacco Use Types [...] Description 08/13/2025 11:15 AM EDT Office Visit [facility] [address] [place] [address] Brooklyn Jalloh MD [address] [place] [address] documented as of this encounter Visit Diagnoses Not on filedocumented in this encounter Additional Health Concerns Assessment Noted Time PHQ-9 Depression Total Score: 5 03/16/20 24 11:45 AM EDT documented as of this encounter Care Teams Clinic Supervisor Relationship Specialty Start Date End Date Brooklyn Jalloh MD [address] [place], [place] [phone] PCP - General Family Medicine 07/17/21 documented as of this encounter
--- OUTSIDE RECORDS SUMMARY | 2025-08-04 11:09 | XMS_ITS | Encounter Summary ---
Author Organization [employer] Address [address] [place] [address] Care Team Providers Care Brim Flexer Name Role Phone Brooklyn Jalloh MD Primary Care Provider [phone] Encounter Details Date Type Department Care Team (Late st Contact Info) Description 12/22/2023 Orders Only [facility] [address] [place], [place] [phone] Brooklyn Jalloh MD [address] [place], [place] [phone] Bronchitis (Primary Dx) Social History Tobacco Use [...] 11:15 AM EDT Office Visit [facility] [address] [place] [address] Brooklyn Jalloh MD [address] [place] [address] documented as of this encounter Procedures Procedure Name Priority Date/Time Associated Diagnosis Comments CBC WITH AUTO DIFFERENTIAL Routine 12/25/2023 12:28 PM EST Bronchitis documented in this encounter Results * (ABNORMAL) CBC auto differential (12/25/2023 12:28 PM EST) White Blood Count 15.4(H) 4.8 - 10.8 X10*3/uL [facility] Red Blood Count 5.11 4.20 - 5.50 X10*6/uL [facility] Hemoglobin 13.7 12.0 - 16.0 g/dl [facility] Hematocrit 42.6 37.0 - 47.0 % [facility] Mean Corpuscular Volume 83.4 80.0 - 98.0 fL [facility] Mean Corpuscular Hemoglobin 26.8(L) 27.0 - 33.0 pg [facility] Mean Corpuscular HGB Conc 32.2 31.0 - 35.0 g/dl [facility] Red Cell Distribution Width 13.9 11.0 - 16.0 % [facility] Platelet Count 442(H) 160 - 400 X10*3/uL [facility] Mean Platelet Volume 10.1 9.4 - 12.3 fL [facility] Neutrophils Percent Auto 71.8 45 - 73 % [facility] Imm Gran Pct Auto 0.5(H) 0.0 - 0.4 % [facility] Lymphocytes Percent Auto 20.8 20 - 40 % [facility] Monocytes Percent Auto 6.7 2 - 11 % [facility] Eosinophils Percent Auto 0.1 0 - 4 % [facility] Basophils Percent Auto 0.1 0 - 2 % [facility] NRBC Pct Auto 0.0 0.0 - 0.2 /100WBC [facility] Neutrophils Absolute Auto 11.0(H) 2.0 - 8.3 x10*3/uL [facility] Imm Gran Abs Auto 0.08(H) 0.00 - 0.03 X10*3/uL [facility] Lymphocytes Absolute Auto 3.2 1.2 - 4.9 X10*3/uL [facility] Monocytes Absolute Auto 1.0 0.1 - 1.2 X10*3/uL [facility] Eosinophils Absolute Auto 0.0 0.0 - 0.4 X10*3/uL [facility] Basophils Absolute Auto 0.0 0.0 - 0.2 X10*3/uL [facility] NRBC Abs Auto 0.000 0.0 - 0.012 X10*3/uL [facility] Blood Venous blood specimen / Unknown 12/25/2023 12:28 PM EST 12/25/2023 1:09 PM EST us Brooklyn Jalloh MD LAB BLOOD ORDERABLES Final Res ult [facility] [address] [place] [phone] [phone] documented in this encounter Visit Diagnoses Diagnosis Bronchitis- Primary Bronchitis, not specified as acute or chronic documented in this encounter Additional Health Concerns Assessment Noted Time PHQ-9 Depression Total Score: 6 02/05/20 23 11:27 AM EDT documented as of this encounter Care Teams Brim Flexer Relationship Specialty Start Date End Date Brooklyn Jalloh MD [address] [place] [address] PCP - General Family Medicine 07/17/21 documented as of this encounter
--- OUTSIDE RECORDS SUMMARY | 2025-08-04 11:09 | XMS_ITS | Encounter Summary ---
Author Organization [employer] Address [address] [facility] [address] 7t [place] [address] Care Team Providers Care Maintenance Shop Welder Name Role Phone Brooklyn Jalloh MD Primary Care Provider [phone] Encounter Details Date Type Department Care Team (Late st Contact Info) Description 03/10/2024 Orders Only [facility] [address] [place], [place] [phone] Brooklyn Jalloh MD [address] [place] [address] Social History Tobacco Use Types Packs/Day Years [...] Description 08/13/2025 11:15 AM EDT Office Visit [facility] [address] [place] [address] Brooklyn Jalloh MD [address] [place] [address] documented as of this encounter Visit Diagnoses Not on filedocumented in this encounter Additional Health Concerns Assessment Noted Time PHQ-9 Depression Total Score: 6 02/05/20 23 11:27 AM EDT documented as of this encounter Care Teams Maintenance Shop Welder Relationship Specialty Start Date End Date Brooklyn Jalloh MD [address] [place] [address] PCP - General Family Medicine 07/17/21 documented as of this encounter
--- OUTSIDE RECORDS SUMMARY | 2025-08-04 11:09 | XMS_ITS | Encounter Summary ---
Author Organization [employer] Address [address] [facility] 7t [place] [address] Care Team Providers Care Pipe Threader Name Role Phone Brooklyn Jalloh MD Primary Care Provider [phone] Encounter Details Date Type Department Care Team ([facility] Contact Info) Description 11/12/2022 Orders Only [facility] [address] [place] [address] [phone] Brooklyn Jalloh MD [address] [place] [address] [phone] Social History Tobacco Use Types Packs/Day Years [...] Upcoming Encounters Date Type Department Care Team ([facility] Contact Info) Description 08/13/2025 11:15 AM EDT Office Visit [facility] [address] [place] [address] Brooklyn Jalloh MD [address] [place] [address] [phone] documented as of this encounter Visit Diagnoses Not on filedocumented in this encounter Care Teams Pipe Threader Relationship Specialty Start Date End Date Brooklyn Jalloh MD [address] [place] [address] PCP - General Family Medicine 07/17/21 documented as of this encounter
--- OUTSIDE RECORDS SUMMARY | 2025-08-04 11:09 | XMS_ITS | Encounter Summary ---
Author Organization [facility] Address [address] [facility] 7t [place] [address] Care Team Providers Care Bioinformaticist Name Role Phone Brooklyn Jalloh MD Primary Care Provider [phone] Encounter Details Date Type Department Care Team (Latest Contact Info) Description 04/06/2021 Abstract [facility] CONVERSIONS Dental, [...] Description 08/13/2025 11:15 AM EDT Office Visit [facility] [address] [place] [phone] Brooklyn Jalloh MD [address] [place] [address] documented as of this encounter Visit Diagnoses Not on filedocumented in this encounter Care Teams Bioinformaticist Relationship Specialty Start Date End Date Brooklyn Jalloh MD [address] [place] [address] PCP - General Family Medicine 07/17/21 documented as of this encounter
--- OUTSIDE RECORDS SUMMARY | 2025-08-04 11:09 | XMS_ITS | Encounter Summary ---
Author Organization [employer] Address [address] [facility] 7t [place] [address] Care Team Providers Care Carry Out Clerk Name Role Phone Brooklyn Jalloh MD Primary Care Provider [phone] Reason for Visit * Reason Comments Med Refill Encounter Details Date Type Department Care Team ([facility] Contact Info) Description 07/29/2023 Refill [facility] [address] [place], [place] [phone] Brooklyn Jalloh MD [address] [place] [address] [phone] Social History Tobacco Use Types Packs/Day Years [...] Visit [facility] [address] [place] [address] [phone] Brooklyn Jalloh MD [address] [place] [address] [phone] documented as of this encounter Visit Diagnoses Not on filedocumented in this encounter Additional Health Concerns Assessment Noted Time PHQ-9 Depression Total Score: 6 02/05/20 23 11:27 AM EDT documented as of this encounter Care Teams Carry Out Clerk Relationship Specialty Start Date End Date Brooklyn Jalloh MD [address] [place] [address] PCP - General Family Medicine 07/17/21 documented as of this encounter
--- OUTSIDE RECORDS SUMMARY | 2025-08-04 11:09 | XMS_ITS | Encounter Summary ---
Author Organization [employer] Address [address] [facility] 7t [place] [address] Care Team Providers Care Seam Checker Name Role Phone Brooklyn Jalloh MD Primary Care Provider [phone] Reason for Visit * Reason Comments Med Refill Encounter Details Date Type Department Care Team ([facility] st Contact Info) Description 07/30/2025 Refill [facility] [address] [place] [address] Brooklyn Jalloh MD [address] [place] [address] Social History Tobacco Use Types Packs/Day Years [...] Description 08/13/2025 11:15 AM EDT Office Visit [facility] [address] [place] [phone] Brooklyn Jalloh MD [address] [place] [phone] documented as of this encounter Visit Diagnoses Not on filedocumented in this encounter Additional Health Concerns Assessment Noted Time PHQ-9 Depression Total Score: 14 025 12:17 PM EDT documented as of this encounter Care Teams Seam Checker Relationship Specialty Start Date End Date Brooklyn Jalloh MD [address] [place] [address] PCP - General Family Medicine 07/17/21 documented as of this encounter
--- OUTSIDE RECORDS SUMMARY | 2025-08-04 11:09 | XMS_ITS | Encounter Summary ---
Author Organization [employer] Address [address] [facility] 7t [place] [address] Care Team Providers Care Flake Or Shred Roll Operator Name Role Phone Brooklyn Jalloh MD Primary Care Provider [phone] Encounter Details Date Type Department Care Team (Latest Contact Info) Description 06/27/2022 Abstract [facility] CONVERSIONS Dental, Provider, DDS Social History [...] Description 08/13/2025 11:15 AM EDT Office Visit [facility] [address] [place] [phone] Brooklyn Jalloh MD [address] [place] [address] documented as of this encounter Visit Diagnoses Not on filedocumented in this encounter Care Teams Flake Or Shred Roll Operator Relationship Specialty Start Date End Date Brooklyn Jalloh MD [address] [place] [address] PCP - General Family Medicine 07/17/21 documented as of this encounter
--- OUTSIDE RECORDS SUMMARY | 2025-08-04 11:09 | XMS_ITS | Encounter Summary ---
Author Organization [employer] Address [address] [facility] 7t [place] [address] Care Team Providers Care Assistant District Attorney Name Role Phone Brooklyn Jalloh MD Primary Care Provider [phone] Reason for Visit * Reason Onset Date Comments Med Refill 07/30/2025 Encounter Details Date Type Department Care Team (Late st Contact Info) Description 07/30/2025 Refill [facility] [address] [place] [address] Brooklyn Jalloh MD [address] [place] [address] Social History Tobacco Use Types Packs/Day Years [...] Telephone Encounter - Georgette Higgins LPN - 07/30/2025 10:50 AM EDT Script from 07/23/25 class was print . PCP VAC. Last seen 07/23/25. * Telephone Encounter - Dallas Dasilva - 07/30/2025 10:44 AM EDT TC from pt requesting medication refill. Medications needing refill : lisinopril 5 MG tablet To be sent to: [facility] - [place], [place] - [address] [facility] documented in this encounter Plan of Treatment Upcoming Encounters Date Type Department Care Team ([facility] st Contact Info) Description 08/13/2025 11:15 AM EDT Office Visit [facility] [address] [place] [address] Brooklyn Jalloh MD [address] [place] [address] documented as of this encounter Visit Diagnoses Not on filedocumented in this encounter Additional Health Concerns Assessment Noted Time PHQ-9 Depression Total Score: 14 025 12:17 PM EDT documented as of this encounter Care Teams Assistant District Attorney Relationship Specialty Start Date End Date Brooklyn Jalloh MD [address] [place] [address] PCP - General Family Medicine 07/17/21 documented as of this encounter
--- OUTSIDE RECORDS SUMMARY | 2025-08-04 11:09 | XMS_ITS | Encounter Summary ---
Author Organization [employer] Address [address] [facility] [address] [place] [address] Care Team Providers Care Feature Writer Name Role Phone Brooklyn Jalloh MD Primary Care Provider [phone] Encounter Details Date Type Department Care Team (Late st Contact Info) Description 08/04/2025 Orders Only GENERIC EXTERNAL DATA DEPARTMENT Provider, Generic External Data Social History Tobacco Use Types Packs/Day Years [...] Description 08/13/2025 11:15 AM EDT Office Visit [facility] MED[facility]INE [address] [place], [place] [phone] Brooklyn Jalloh MD [address] [place] [address] documented as of this encounter Procedures Procedure Name Priority Date/Time Associated Diagnosis Comments XR CHEST 1 VIEW Routine 08/04/2025 10:37 AM EDT HIGH SENSITIVITY TROPONIN I Routine 08/04/2025 9:33 AM EDT CBC WITH AUTO DIFFERENTIAL Routine 08/04/2025 9:33 AM EDT BASIC METABOLIC PANEL Routine 08/04/2025 9:33 AM EDT documented in this encounter Results * XR Chest 1 View (08/04/2025 10:37 AM EDT) Anatomical Region Laterality Modality Chest Radiographic Zina ging 08/04/2025 10:3 7 AM EDT Narrative 08/04/2025 10:54 AM EDT [address] [address] XRay Report Signed Patient: Machelle Wooten MR#: [id number] : 1970 Acct:[id number] Age/Sex: 55 / F ADM Date: 08/04/25 Loc: HO.ED Attending Dr: Ordering Physician: Lilly Cueto PA-C Date of Service: 08/04/25 Procedure(s): XR chest 1V Accession Number(s): [id number] cc: Lilly Cueto PA-C; Brooklyn Jalloh Reason [...] 08/04/25 1051 DD/ 1037 TD/TT: 08/04/25 1045 Vp Scientific: Procedure Note Donotuseinterpreter, Image - 08/04/2025 [place] [address] XRay Report Signed Patient: Machelle WootenMR#: [id number] : 1970Acct:[id number] Age/Sex: 55 / FADM Date: 08/04/25 Loc: HO.ED Attending Dr: Ordering Physician: Lilly Cueto PA-C Date of Service: 08/04/25 Procedure(s): XR chest 1V Accession Number(s): [id number] cc: Lilly Cueto PA-C; Brooklyn Jalloh Reason [...] 08/04/25 1051 DD/ 1037 TD/TT: 08/04/25 1045 Vp Scientific: [facility] External Provider IMG XR PROCEDURES Final Result * High Sensitivity Troponin I (08/04/2025 9:33 AM EDT) [facility] [address] TROPONIN I HIGH SENSITIVITY <2.7 <3.5 - 17.0 ng/L [facility] Comment:The [place] high sens itivity Troponin-I results should beused in conjunction with other diagnostic information suchas ECG, clinical observations and information, and patientsymptoms to aid in the diagnosis of [place]. 08/04/2025 9:33 AM EDT 08/04/2025 9:35 AM EDT Generic External Data Provider LAB BLOOD ORDERAB LES Final Result [facility] [address] [place] [address] [phone] * (ABNORMAL) Basic Metabolic Panel (08/04/2025 9:33 AM EDT) [facility] [address] Sodium 141 135 - 145 mmol/L [facility] Potassium 4.0 3.3 - 5.1 mmol/L [facility] Chloride 106 96 - 108 mmol/L [facility] Carbon Dioxide 25 22 - 29 mmol/L [facility] Anion Gap 14 12 - 20 [facility] Urea Nitrogen (BUN) 13 9 - 16 mg/dL [facility] Creatinine, Serum 0.67 0.5 - 1.4 mg/dL [facility] Creatinine Clr Calc Pharmacy 100.3 [facility] Comment:Provided height and weight: 165.1 cm,86.001 kg.eGFR (calculated from the MDRD study equation) and eCrCl(calculated from the Cockcroft-Gault equation) are based ondifferent parameters and may not yield comparable results.If eCrCl result is absurd, please check patient'sheight/weight. Estimated Glomerular Filt Rate >60 [facility] Comment:Chronic Kidney Disea se: Estimated GFR < 60 mL/min/1.92n6Ecicvv Kidney Disease: Estimated GFR < 15 mL/min/1.73m2 Glucose 123(H) 60 - 115 mg/dL [facility] Calcium 9.2 8.4 - 10.2 mg/dL [facility] 08/04/2025 9:33 AM EDT 08/04/2025 9:35 AM EDT us Generic External Data Provider LAB BLOOD ORDERAB LES Final Result [facility] [address] [place] [phone] * (ABNORMAL) CBC auto differential (08/04/2025 9:33 AM EDT) White Blood Count 15.7(H) 4.8 - 10.8 X10*3/uL [facility] Red Blood Count 4.46 4.20 - 5.50 X10*6/uL [facility] Hemoglobin 12.3 12.0 - 16.0 g/dl [facility] Hematocrit 36.4(L) 37.0 - 47.0 % [facility] Mean Corpuscular Volume 81.6 80.0 - 98.0 fL [facility] Mean Corpuscular Hemoglobin 27.6 27.0 - 33.0 pg [facility] Mean Corpuscular HGB Conc 33.8 31.0 - 35.0 g/dl [facility] Red Cell Distribution Width 14.3 11.0 - 16.0 % [facility] Platelet Count 323 160 - 400 X10*3/uL [facility] Mean Platelet Volume 9.9 9.4 - 12.3 fL [facility] Neutrophils Percent Auto 71.1 45 - 73 % [facility] Imm Gran Pct Auto 0.3 0.0 - 0.4 % [facility] Lymphocytes Percent Auto 19.6(L) 20 - 40 % [facility] Monocytes Percent Auto 7.8 2 - 11 % [facility] Eosinophils Percent Auto 1.0 0 - 4 % [facility] Basophils Percent Auto 0.2 0 - 2 % [facility] NRBC Pct Auto 0.0 0.0 - 0.2 /100WBC [facility] Neutrophils Absolute Auto 11.2(H) 2.0 - 8.3 x10*3/uL [facility] Imm Gran Abs Auto 0.05(H) 0.00 - 0.03 X10*3/uL [facility] Lymphocytes Absolute Auto 3.1 1.2 - 4.9 X10*3/uL [facility] Monocytes Absolute Auto 1.2 0.1 - 1.2 X10*3/uL [facility] Eosinophils Absolute Auto 0.2 0.0 - 0.4 X10*3/uL [facility] Basophils Absolute Auto 0.0 0.0 - 0.2 X10*3/uL [facility] NRBC Abs Auto 0.000 0.0 - 0.012 X10*3/uL [facility] 08/04/2025 9:33 AM EDT 08/04/2025 9:35 AM EDT us Generic External Data Provider LAB BLOOD ORDERAB LES Final Result [facility] [address] [place] [address] [phone] documented in this encounter Visit Diagnoses Not on filedocumented in this encounter Additional Health Concerns Assessment Noted Time PHQ-9 Depression Total Score: 14 05/07/ 025 12:17 PM EDT documented as of this encounter Care Teams Feature Writer Relationship Specialty Start Date End Date Brooklyn Jalloh MD [address] [place] [address] PCP - General Family Medicine 07/17/21 documented as of this encounter
--- OUTSIDE RECORDS SUMMARY | 2025-08-04 11:09 | XMS_ITS | Encounter Summary ---
Author Organization [employer] Address [address] [facility] [address] h Floor [place] [id number] Care Team Providers Care Evp Business Development Name Role Phone Brooklyn Jalloh MD Primary Care Provider [phone] Reason for Visit * Reason Onset Date Comments referral 11/29/2023 Encounter Details Date Type Department Care Team ([facility] st Contact Info) Description 11/29/2023 Telephone [facility] [address] [place], [place] [phone] Brooklyn Jalloh MD [address] [place] [address] referral Social History Tobacco Use Types Packs/Day [...] Tc from pt requesting a Referral for [facility]rology with Dr. Aldrich @ [address] [place] [address] to be further Evaluated for her Diagnoses @ the [facility] of gastroenteritis. Please contact pt @ [phone] documented in this encounter Plan of Treatment Upcoming Encounters Date Type Department Care Team ([facility] st Contact Info) Description 08/13/2025 11:15 AM EDT Office Visit [facility] [address] [place] [address] Brooklyn Jalloh MD [address] [place] [address] documented as of this encounter Visit Diagnoses Not on filedocumented in this encounter Additional Health Concerns Assessment Noted Time PHQ-9 Depression Total Score: 6 02/05/20 23 11:27 AM EDT documented as of this encounter Care Teams Evp Business Development Relationship Specialty Start Date End Date Brooklyn Jalloh MD [address] [place] [address] PCP - General Family Medicine 07/17/21 documented as of this encounter
--- OUTSIDE RECORDS SUMMARY | 2025-08-04 11:09 | XMS_ITS | Encounter Summary ---
Author Organization [employer] [facility] Address [address] [facility] 7t [place] [address] Care Team Providers Care Wrecking Car Driver Name Role Phone Brooklyn Jalloh MD Primary Care Provider [phone] Encounter Details Date Type Department Care Team (Latest Contact Info) Description 05/12/2019 Abstract [facility] CONVERSIONS Dental, Provider, DDS Social [...] Description 08/13/2025 11:15 AM EDT Office Visit [facility] [address] [place] [address] Brooklyn Jalloh MD [address] [place] [address] documented as of this encounter Visit Diagnoses Not on filedocumented in this encounter Care Teams Wrecking Car Driver Relationship Specialty Start Date End Date Brooklyn Jalloh MD [address] [place] [address] PCP - General Family Medicine 07/17/21 documented as of this encounter
--- OUTSIDE RECORDS SUMMARY | 2025-08-04 11:09 | XMS_ITS | Encounter Summary ---
Author Organization [employer] Address [address] [facility] 7t [place] [address] Care Team Providers Care Health Specialist Name Role Phone Brooklyn Jalloh MD Primary Care Provider [phone] Encounter Details Date Type Department Care Team (Late st Contact Info) Description 07/23/2023 Abstract [facility] MEDICINE [address] [place] [phone] Brooklyn Jalloh MD [address] [place] [address] [phone] Social History Tobacco Use Types Packs/Day Years [...] 11:15 AM EDT Office Visit [facility] [address] [place] [phone] Brooklyn Jalloh MD [address] [place] [phone] documented as of this encounter Visit Diagnoses Not on filedocumented in this encounter Additional Health Concerns Assessment Noted Time PHQ-9 Depression Total Score: 6 02/05/20 23 11:27 AM EDT documented as of this encounter Care Teams Health Specialist Relationship Specialty Start Date End Date Brooklyn Jalloh MD [address] [place] [address] PCP - General Family Medicine 07/17/21 documented as of this encounter
[2025-08-04 12:02] VITALS: BP 111/85; PULSE 79; RESP 16; O2SAT 99
[2025-08-04 12:07] LABS: Appearance Urine Clear; Glucose Urine UA Negative (Negative); PH 5.5 (5.0-9.0); Specific Gravity - Urine 1.010 (1.005-1.025)
[2025-08-04 12:26] LABS: COVID-19 Test Negative (Negative); IDNOW Serial# 08D9AD1C; IDNOW Serial# 58CA691E; Influenza B2 Negative (Negative)
[2025-08-04 12:28] LABS: Troponin-I High Sensitivity < 2.7 ng/L (<3.5-17.0)
[2025-08-04 14:14] VITALS: BP 104/64; PULSE 63; RESP 16; O2SAT 99
[2025-08-04 16:09] VITALS: BP 117/75; PULSE 82; RESP 17; TEMP 36.6; O2SAT 100
== END 2025-08-04 16:16 | disposition home or self-care (01) ==
PROVIDERS: Emergency Provider Emergency Medicine; PCP General Practice
DX: I31.9 Disease of pericardium, unspecified (principal); R07.9 Chest pain, unspecified; R51.9 Headache, unspecified; E78.5 Hyperlipidemia, unspecified; I25.10 Atherosclerotic heart disease of native coronary artery without angina pectoris; Z79.899 Other long term (current) drug therapy
CPT/HCPCS: 36415; 71045; 80048; 81003; 84484; 85025; 85652; 86140; 87502; 87635; 93005; 96372; 99284; 99285; J1885

== ENCOUNTER → 2025-08-04 08:56 | Outpatient (BNV) | payer OTHER, SELFPAY | PROVIDERS: Emergency Provider Emergency Medicine; PCP General Practice; Visit Provider Internal Medicine Cardiovascular Disease | DX: R94.31 Abnormal electrocardiogram [ECG] [EKG] (principal); R07.9 Chest pain, unspecified | CPT/HCPCS: 93010 ==

== ENCOUNTER → 2025-08-04 10:14 | Outpatient (BNV) | payer OTHER, SELFPAY | PROVIDERS: Emergency Provider Emergency Medicine; PCP General Practice; Visit Provider Radiology Diagnostic Radiology | DX: R05.9 Cough, unspecified (principal); R07.89 Other chest pain | CPT/HCPCS: 71045 ==

== ENCOUNTER 2025-08-31 14:17 | Outpatient (AMB) | payer OTHER, SELFPAY ==
--- NOTE | 2025-08-31 14:27 | MHC.OFFVIS ---
Vital Signs 08/31/25 14:28 Height 5 ft 5 in Weight 194 lb 10.691 oz BMI 32.4 BP 100/60 Blood Pressure Location Lt brachial Position Sitting Pulse 70 Pulse Source Monitor Intake Visit Reasons: dr. peñaloza/precordial chest pain Licensed Electrician Required: Yes Licensed Electrician Language: Pit Boss Name: [id number] Accompanied by: Self / Same As Patient Allergies shrimp (SHRIMP) Allergy (Unknown, Verified 08/04/25 09:03) UNKNOWN Medication List - Last Reconciled 08/31/25 by Landen Chauhan MD acetaminophen ER (Tylenol 8 Hour) 650 mg PO Q8H albuterol sulfate 90 mcg/actuation (Ventolin HFA) 2 puffs inhalation QID PRN atorvastatin 20 mg PO DAILY baclofen 10 mg PO DAILY buspirone 10 mg PO BID colchicine 0.6 mg PO DAILY 120 days docusate sodium 100 mg PO BID PRN fluocinolone acetonide oil 0.01% 3 drps otic (ears) fluoxetine 40 mg PO QAM jsienzhssbq-yjlxkkavo-ycrrgztg 200-62.5-25 mcg (Trelegy Ellipta) 1 inh inhalation DAILY gabapentin 100 mg PO DAILY ibuprofen 600 mg PO Q6H PRN ibuprofen 800 mg PO TID 14 days ipratropium bromide 2 sprays intranasal TID-QID PRN 30 days lactulose 10 grams (15 mL) PO DAILY PRN leg brace (Knee Support Brace) SWETA-PULL LITE, LT, L levofloxacin 750 mg PO DAILY lidocaine 5% 1 patch topical DAILY lisinopril 5 mg PO DAILY metformin ER 500 mg PO DAILY omeprazole 20 mg PO DAILY simethicone (Gas Relief (simethicone)) 80 mg PO Q8H PRN sucralfate 1 g PO BID trazodone 25 mg PO DAILY triamcinolone acetonide 0.1% appl topical HPI Comments Details: Machelle is here for evaluation regarding chest pain. She has no previous cardiac history including coronary disease or myocardial infarction or cardiomyopathy. Recently came to the ER for chest pain and at that time, it seems that she got diagnosed with pericarditis and put on colchicine and NSAIDs. She states that she is feeling better but the pain is not completely gone. 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 She feels that she exerted too much. Not entirely clear if it is musculoskeletal. However, not anginal sounding. Also not very classical for pericarditis either as EKGs not supportive of the same. There was slight elevation of CRP but it seems it has been like that for many years. Currently, she still describes some chest pain with body movements in different positions sometimes with bending forward extra. Not clear if it is just again musculoskeletal pains/sternal strain extra. She also feels short of breath with activity. [facility] Medical History Other and unspecified hyperlipidemia Essential hypertension Family history of coronary artery disease Bilateral knee pain Chronic pain Fibromyalgia Surgical History History of cholecystectomy H/O section H/O lateral meniscus repair of left knee History of hysterectomy Family History Father History of open heart surgery Brother Hypertension Mother Colon cancer Social History Household Members Other:: son Housing: Apartment Alcohol intake: never Patient Tobacco Use Status: Never used Tobacco Current occupational status: disabled Current occupation: Right Handed Review of Systems Const Denies chills, Denies fatigue, Denies fever(s), Denies frequent falls, Denies weakness, Denies weight gain and Denies weight loss ENT Denies dizziness Card Reports chest pain, Denies leg edema, Denies lightheadedness, Denies palpitations, Reports dyspnea, Reports dyspnea on exertion and Reports orthopnea Resp Denies cough, Reports dyspnea and Reports dyspnea on exertion GI Denies bloating and Denies change in bowel habits Musc Denies muscle weakness, Denies numbness and Denies tingling Neuro Denies dizziness, Denies frequent falls, Denies numbness, Denies tingling and Denies weakness Endo Denies fatigue and Denies palpitations Physical Exam Vital Signs: Last Vital Signs Pulse 70 08/31/25 14:28 BP 100/60 08/31/25 14:28 BMI result Body Mass Index 32.4 Const General: comfortable and no acute distress Orientation/consciousness: patient oriented x3 HEENT Other: Unremarkable Head: Yes normal to inspection Neck Neck: Yes normal visual inspection Chest Chest palpation & inspection: normal inspection of the chest Resp Auscultation: clear to auscultation bilaterally Cardio Palpation: normal PMI Heart sounds: S1 normal heart sound present, S2 normal heart sound present, no gallops, no murmurs and no rubs GI Palpation (GI): Soft to palpation Back/Spine/Pelvis Other: unremarkable Skin General skin exam: no rashes or lesions noted Neuro General: patient oriented x3 Extrem General: Yes normal to inspection Psych Mental Status: mental status grossly normal Office Procedures EKG Details: EKG with underlying sinus rhythm at 70/Min; low-voltage QRS complexes; [place] [id number], Complete Assessment & Plan Assessment & Plan (1) Precordial chest pain: Code(s): R07.2 - Precordial pain Category: Medical Plan Testing reviewed. EKG from today seems fairly unremarkable. In the EKG from the ER from 2 weeks ago no clear ischemic changes. Also, there was no EKG finding to clearly suggest pericarditis either. In the chest CT scan recently performed, no pulmonary emboli. Small airway disease. No overt cardiac findings. High sensitivity troponins done over the last few years are all normal. CRP levels are borderline high but it has been that way for many years. Overall, positional chest pain, previously diagnosis pericarditis, but could be just musculoskeletal. We will get an echocardiogram for baseline assessment. Not very suggestive of angina and hence we will hold off on ischemic workup at this time and we will clinically follow. She has noticed some improvement with colchicine/NSAIDs and she can finish the course. Follow up in a few weeks' time. Total time spent including review of ER records, counseling, documentation, coordination of care-45 minutes. Discussed using after school caregiver. Discussion Notes I discussed with the patient the importance of continuing her current medications for asthma, pericarditis, and panic attacks. We also talked about the need for an echocardiogram to further evaluate her heart condition and ensure there are no significant issues. The patient was advised to maintain regular use of her CPAP machine for sleep apnea management. Patient was informed and verbally consented to the use of an ambient scribe for clinic note documentation during this visit. Orders: Orders CA echo transthoracic complete Today R07.2 - Precordial pain Patient Instructions: - Continue taking all prescribed medications as directed. - Schedule and attend an echocardiogram appointment. - Use CPAP machine every night for sleep apnea. - Monitor symptoms and report any changes or worsening conditions. Coding Level of Care Code New Pt Level 4 (14327) Diagnoses Precordial chest pain R07.2 CPT Codes EKG - CPT: 42508-[id number], Complete ([id number])
[2025-08-31 14:28] VITALS: BP 100/60; PULSE 70; BMI 32.4
--- OUTSIDE RECORDS SUMMARY | 2025-08-31 17:36 | XMS_ITS | Encounter Summary ---
Author Organization [employer] Address [address] [facility] 7t [place] [address] Care Team Providers Care Shower Attendant Name Role Phone Brooklyn Jalloh MD Primary Care Provider [phone] Reason for Visit * Reason Onset Date Comments Durable Medical Equipment 02/07/2023 Encounter Details Date Type Department Care Team (Late st Contact Info) Description 02/07/2023 Telephone [facility] MEDICINE [address] [place] [address] Brooklyn Jalloh MD [address] [place] [address] Durable Medical Equipment Social History Tobacco Use [...] status on walker please contact pt at [phone]. documented in this encounter Plan of Treatment Upcoming Encounters Date Type Department Care Team (Late st Contact Info) Description 09/20/2025 10:00 AM EDT Office Visit [facility] OPTOMETRY [address] [place] [address] AbdirahmanMel, OD [address] [place] [address] 10/29/2025 11:15 AM EST Office Visit [facility] MEDICINE [address] [place] [address] Brooklyn Jalloh MD [address] [place] [address] documented as of this encounter Visit Diagnoses Not on filedocumented in this encounter Additional Health Concerns Assessment Noted Time PHQ-9 Depression Total Score: 6 02/05/20 23 11:27 AM EDT documented as of this encounter Care Teams Shower Attendant Relationship Specialty Start Date End Date Brooklyn Jalloh MD [address] [place] [address] PCP - General Family Medicine 07/17/21 documented as of this encounter
--- OUTSIDE RECORDS SUMMARY | 2025-08-31 17:36 | XMS_ITS | Encounter Summary ---
Author Organization [employer] Address [address] [facility] [address]t [place] [address] Care Team Providers Care Boiler Riveter Name Role Phone Brooklyn Jalloh MD Primary Care Provider [phone] Reason for Visit * Reason Onset Date Comments Med Refill 02/04/2023 Encounter Details Date Type Department Care Team (Late st Contact Info) Description 02/04/2023 Telephone [facility] MEDICINE [address] [place] [address] Brooklyn Jalloh MD [address] [place] [address] Med Refill Social History Tobacco Use Types [...] 3:33 PM EDT Medications were sent to [facility] today 02/04/23. * Telephone Encounter - Ankur Villanueva - 02/04/2023 3:01 PM EDT Tc from pt requesting med refill Prednisone 20 mg Ibuprofen 800 mg Doxycycline 100 mg documented in this encounter Plan of Treatment Upcoming Encounters Date Type Department Care Team (Late st Contact Info) Description 09/20/2025 10:00 AM EDT Office Visit [facility] OPTOMETRY [address] [place] [address] Abdirahman, Mel, OD [address] [place] [address] 10/29/2025 11:15 AM EST Office Visit [facility] MEDICINE [address] [place] [address] Brooklyn Jalloh MD [address] [place] [address] documented as of this encounter Visit Diagnoses Not on filedocumented in this encounter Additional Health Concerns Assessment Noted Time PHQ-9 Depression Total Score: 6 02/05/20 23 11:27 AM EDT documented as of this encounter Care Teams Boiler Riveter Relationship Specialty Start Date End Date Brooklyn Jalloh MD [address] [place] [address] PCP - General Family Medicine 07/17/21 documented as of this encounter
--- OUTSIDE RECORDS SUMMARY | 2025-08-31 17:36 | XMS_ITS | Encounter Summary ---
Author Organization [employer] Address [address] [place] [address] 7t [place] [address] Care Team Providers Care Microstrategy Bi Developer Name Role Phone Brooklyn Jalloh MD Primary Care Provider Reason for Referral * (Routine) - Closed Specialty Diagnoses / Procedures Referred By Tenzin t Referred To Contact Diagnoses Benign breast disease Procedures BI Mammogram Diagnostic same day Diagnostic same/ Day Right Brooklyn Jalloh MD [address] [place] [phone] Phone: tel: fax: Referral ID Status Reason Start Date Expiration Date Visits Re quested Visits Authorized [id number] Closed 03/20/2023 09/16/2023 1 1 Encounter Details Date Type Department Care Team (Late st Contact Info) Description 03/20/2023 Orders Only [facility] MEDICINE [address] [place] [address] [phone] Brooklyn Jalloh MD [address] [place] [address] [phone] Benign breast disease (Primary Dx) Social History [...] Description 09/20/2025 10:00 AM EDT Office Visit [facility] OPTOMETRY [address] [place] [address] Abdirahman, Mel, OD [address] [place] [address] 10/29/2025 11:15 AM EST Office Visit [facility] MED[facility]INE [address] [place] [address] Brooklyn Jalloh MD [address] [place] [address] Scheduled Orders Name Type Priority Associated Diagnoses [...] documented as of this encounter Care Teams Microstrategy Bi Developer Relationship Specialty Start Date End Date Brooklyn Jalloh MD [address] [place] [phone] PCP - General Family Medicine 07/17/21 documented as of this encounter
--- OUTSIDE RECORDS SUMMARY | 2025-08-31 17:36 | XMS_ITS | Encounter Summary ---
Author Organization [employer] Address 75 [facility] 7t [place] [address] Care Team Providers Care Home Visits Nurse Name Role Phone Brooklyn Jalloh MD Primary Care Provider [phone] Encounter Details Date Type Department Care Team ([facility] st Contact Info) Description 05/21/[address] [facility] MED[facility]INE [address] [place], [place] [phone] Brooklyn Jalloh MD 230 [place] [address] Social History Tobacco Use Types Packs/Day Years [...] Description 09/20/2025 10:00 AM EDT Office Visit [facility] OPTOM[facility]RY [address] [place] [address] Abdirahman, Mel, OD 230 [place] [address] 10/29/2025 11:15 AM EST Office Visit [facility] [address] [place] [address] Brooklyn Jalloh MD [address] [place] [address] documented as of this encounter Visit Diagnoses Not on filedocumented in this encounter Additional Health Concerns Assessment Noted Time PHQ-9 Depression Total Score: 14 025 12:17 PM EDT documented as of this encounter Care Teams Home Visits Nurse Relationship Specialty Start Date End Date Brooklyn Jalloh MD [address] [place] [address] PCP - General Family Medicine 07/17/21 documented as of this encounter
--- OUTSIDE RECORDS SUMMARY | 2025-08-31 17:36 | XMS_ITS | Encounter Summary ---
Author Organization [facility] Address 75 [facility] 7t [place] [address] Care Team Providers Care Jewel Inspector Name Role Phone Brooklyn Jalloh MD Primary Care Provider [phone] Encounter Details Date Type Department Care Team ([facility] Contact Info) Description 03/07/2023 Orders Only [facility] MEDICINE 230 [place] [address] Broolkyn Jalloh MD 230 [place] [address] Rash of face (Primary Dx) Social History [...] Upcoming Encounters Date Type Department Care Team ([facility] Contact Info) Description 09/20/2025 10:00 AM EDT Office Visit [facility] OPTOMETRY [address] [place], [place] [phone] Mel Gary, OD 230 [place], [place] [phone] 10/29/2025 11:15 AM EST Office Visit [facility] MED[facility]INE 230 [place], [place] [phone] Brooklyn Jalloh MD 230 [place] [address] documented as of this encounter Visit Diagnoses Diagnosis Rash of face- Primary documented in this encounter Additional Health Concerns Assessment Noted Time PHQ-9 Depression Total Score: 6 02/05/20 23 11:27 AM EDT documented as of this encounter Care Teams Jewel Inspector Relationship Specialty Start Date End Date Brooklyn Jalloh MD [address] [place] [address] [phone] PCP - General Family Medicine 07/17/21 documented as of this encounter
--- OUTSIDE RECORDS SUMMARY | 2025-08-31 17:36 | XMS_ITS | Encounter Summary ---
Author Organization [employer] Address 75 [facility] 7t [place] [address] Care Team Providers Care Net Making Supervisor Name Role Phone Brooklyn Jalloh MD Primary Care Provider [phone] Encounter Details Date Type Department Care Team ([facility] Contact Info) Description 02/15/2023 Orders Only [facility] MED[facility]INE 230 [place], [place] [phone] Brooklyn Jalloh MD 230 [place] [address] Ingrown toenail (Primary Dx) Social History Tobacco [...] Upcoming Encounters Date Type Department Care Team ([facility] Contact Info) Description 09/20/2025 10:00 AM EDT Office Visit [facility] OPTOMETRY [address] [place] [address] Mel Gary, OD 230 [place] [address] 10/29/2025 11:15 AM EST Office Visit [facility] MED[facility]INE 230 [place] [address] Brooklyn Jalloh MD 230 [place], [place] [phone] documented as of this encounter Visit Diagnoses Diagnosis Ingrown toenail- Primary Ingrowing nail documented in this encounter Additional Health Concerns Assessment Noted Time PHQ-9 Depression Total Score: 6 02/05/20 23 11:27 AM EDT documented as of this encounter Care Teams Net Making Supervisor Relationship Specialty Start Date End Date Brooklyn Jalloh MD [address] [place] [address] [phone] PCP - General Family Medicine 07/17/21 documented as of this encounter
--- OUTSIDE RECORDS SUMMARY | 2025-08-31 17:36 | XMS_ITS | Encounter Summary ---
Author Organization [employer] Address 75 [facility] 7t [place] [address] Care Team Providers Care Career Development Coordinator Name Role Phone Brooklyn Jalloh MD Primary Care Provider [phone] Reason for Visit * Reason Onset Date Comments Medication Question 08/20/2024 Results 08/20/2024 Encounter Details Date Type Department Care Team ([facility] st Contact Info) Description 08/20/2024 Telephone [facility] MEDICINE 230 [place] [address] Brooklyn Jalloh MD 230 [place], [place] [phone] Medication Question; Results Social History Tobacco Use [...] 2:40 PM EDT TC placed to pt [phone] via [employer] in regards to below message. RN informed [...] - 08/20/2024 3:47 PM EDT Noted. Per [employer], shoulder Xray performed on 08/11/24 however interpretation [...] BW. Pt verbalized understanding. Pt also requesting rkahlrp-[id number]-[id number] medication be Rx'd again for her migraines. [...] results: Labs Date when done: 08/18/24 Facility: [facility] Labs Pt is also requesting Eletriptan medication for migraines but brief writer did not see medication on med list. Please contact pt at [phone]. (Vietnamese Speaker) documented in this encounter Plan of Treatment Upcoming Encounters Date Type Department Care Team (Late st Contact Info) Description 09/20/2025 10:00 AM EDT Office Visit [facility] OPTOMETRY [address] [place] [address] Mel Gary, OD 230 [place] [address] 10/29/2025 11:15 AM EST Office Visit [facility] 230 [place] [address] Brooklyn Jalloh MD 230 [place] [address] documented as of this encounter Visit Diagnoses Not on filedocumented in this encounter Additional Health Concerns Assessment Noted Time PHQ-9 Depression Total Score: 5 03/16/20 24 11:45 AM EDT documented as of this encounter Care Teams Career Development Coordinator Relationship Specialty Start Date End Date Brooklyn Jalloh MD 230 [place] [address] PCP - General Family Medicine 07/17/21 documented as of this encounter
--- OUTSIDE RECORDS SUMMARY | 2025-08-31 17:36 | XMS_ITS | Encounter Summary ---
Author Organization [employer] Address 75 [facility] 7t [place] [address] Care Team Providers Care Boot Trimmer Name Role Phone Brooklyn Jalloh MD Primary Care Provider [phone] Encounter Details Date Type Department Care Team (Late st Contact Info) Description 01/28/2023 Orders Only [facility] MEDICINE 230 [place] [address] Sarika Jenkins CNM 230 [place] [address] Candidiasis of vulva and vagina (Primary Dx) [...] Description 09/20/2025 10:00 AM EDT Office Visit [facility] OPTOMETRY [address] [place], [place] [phone] Mel Gary, OD 230 [place] [address] 10/29/2025 11:15 AM EST Office Visit [facility] MED[facility]INE 230 [place] [address] Brooklyn Jalloh MD 230 [place] [address] documented as of this encounter Visit Diagnoses Diagnosis Candidiasis of vulva and vagina- Primary documented in this encounter Care Teams Boot Trimmer Relationship Specialty Start Date End Date Brooklyn Jalloh MD 230 [place], [place] [phone] PCP - General Family Medicine 07/17/21 documented as of this encounter
--- OUTSIDE RECORDS SUMMARY | 2025-08-31 17:36 | XMS_ITS | Encounter Summary ---
Author Organization [employer] Address [address] [facility] [address] 7t [place] [address] Care Team Providers Care Advanced Manufacturing Vice President Name Role Phone Brooklyn Jalloh MD Primary Care Provider [phone] Encounter Details Date Type Department Care Team (Late st Contact Info) Description 08/26/2024 Orders Only [facility] MEDICINE 230 [place] [address] Brooklyn Jalloh MD 230 [place] [address] Elevated alkaline phosphatase level (Primary Dx) Social [...] Description 09/20/2025 10:00 AM EDT Office Visit [facility] OPTOMETRY [address] [place] [address] Abdirahman, Mel, OD 230 [place] [address] 10/29/2025 11:15 AM EST Office Visit [facility] MEDICINE 230 [place] [address] Brooklyn Jalloh MD 230 [place] [address] documented as of this encounter Procedures Procedure Name Priority Date/Time Associated Diagnosis Comments MITOCHONDRIAL ANTIBODY WITH REFLEX TO TITER Routine 04/02/2025 11:49 AM EDT Elevated alkaline phosphatase level documented in this encounter Results * Mitochondrial Antibody with Reflex to Titer (04/02/2025 11:49 AM EDT) Mitochondrial Antibodies NEGATIVE NEGATIVE [facility] Comment:THIS TEST WAS PERFOR MED AT:[facility] [place] [id number] GRIGGS MD Mitochondrial Ab Titer TNP [facility] Blood Venous blood specimen / Unknown 04/02/2025 11:49 AM EDT 04/02/2025 1:17 PM EDT Brooklyn Jalloh MD LAB BLOOD ORDERABLES Final Res ult [facility] [address] [place] [address] [phone] documented in this encounter Visit Diagnoses Diagnosis Elevated alkaline phosphatase level- Primary documented in this encounter Additional Health Concerns Assessment Noted Time PHQ-9 Depression Total Score: 5 03/16/20 24 11:45 AM EDT documented as of this encounter Care Teams Advanced Manufacturing Vice President Relationship Specialty Start Date End Date Brooklyn Jalloh MD [address] [place] [address] PCP - General Family Medicine 07/17/21 documented as of this encounter
--- OUTSIDE RECORDS SUMMARY | 2025-08-31 17:36 | XMS_ITS | Encounter Summary ---
Author Organization [employer] Address [address] [facility] [address] 7t [place] [address] Care Team Providers Care Leaded Glass Installer Name Role Phone Brooklyn Jalloh MD Primary Care Provider [phone] Encounter Details Date Type Department Care Team (Late st Contact Info) Description 08/25/2024 Orders Only [facility] 230 [place] [address] Provider, MD Dipak Social History Tobacco Use [...] 10:00 AM EDT Office Visit [facility] [address] [place], [place] [phone] Abdirahman, Mel, OD 230 [place] [address] 10/29/2025 11:15 AM EST Office Visit [facility] 230 [place] [address] Brooklyn Jalloh MD 230 [place] [address] documented as of this encounter Procedures Procedure [...] documented as of this encounter Care Teams Leaded Glass Installer Relationship Specialty Start Date End Date Brooklyn Jalloh MD 230 [place], [place] [phone] PCP - General Family Medicine 07/17/21 documented as of this encounter
--- OUTSIDE RECORDS SUMMARY | 2025-08-31 17:36 | XMS_ITS | Encounter Summary ---
Author Organization [employer] Address 75 [facility] 7t [place] [address] Care Team Providers Care Records Management Director Name Role Phone Brooklyn Jalloh MD Primary Care Provider [phone] Reason for Visit * Reason Onset Date Comments triage 03/06/2023 Encounter Details Date Type Department Care Team ([facility] st Contact Info) Description 03/06/2023 Telephone [facility] MEDICINE 230 [place], [place] [phone] Brooklyn Jalloh MD 230 [place] [address] triage Social History Tobacco Use Types Packs/Day [...] 03/06/2023 3:39 PM EDT triage call with [facility] Manager Advanced ID [id number] Pt reports itchiness on face. Pt reports this has been for two days and has some red spots now. Pt has had this before in different areas of the body. Pt has seen gas maker Cassie and jakob to help but doesn't know the name of the cream. Pt is offered to come to [facility] to be seen by provider but, declines. Pt wants only to have apt with gas maker will send to PCP nurse team to [...] now The caller accepted this outcome speaks sao tomean documented in this encounter Plan of Treatment Upcoming Encounters Date Type Department Care Team (Late st Contact Info) Description 09/20/2025 10:00 AM EDT Office Visit [facility] OPTOMETRY [address] [place] [address] Abdirahman Mel, OD 230 [place] [address] 10/29/2025 11:15 AM EST Office Visit [facility] MEDICINE 230 [place] [address] Brooklyn Jalloh MD 230 [place], [place] [phone] documented as of this encounter Visit Diagnoses Not on filedocumented in this encounter Additional Health Concerns Assessment Noted Time PHQ-9 Depression Total Score: 6 02/05/20 23 11:27 AM EDT documented as of this encounter Care Teams Records Management Director Relationship Specialty Start Date End Date Brooklyn Jalloh MD [address] [place] [address] [phone] PCP - General Family Medicine 07/17/21 documented as of this encounter
--- OUTSIDE RECORDS SUMMARY | 2025-08-31 17:36 | XMS_ITS | Encounter Summary ---
Author Organization [employer] Address 75 [facility] 7t [place] [address] Care Team Providers Care Ed Teacher Name Role Phone Brooklyn Jalloh MD Primary Care Provider [phone] Reason for Visit * Reason Onset Date Comments Referral 05/10/2023 Encounter Details Date Type Department Care Team ([facility] st Contact Info) Description 05/10/2023 Telephone [facility] MEDICINE 230 [place], [place] [phone] Brooklyn Jalloh MD 230 [place] [address] Referral Social History Tobacco Use Types Packs/Day [...] to her toenails. Please contact pt at [phone] Luxembourger Speaker documented in this encounter Plan of Treatment Upcoming Encounters Date Type Department Care Team (Late st Contact Info) Description 09/20/2025 10:00 AM EDT Office Visit [facility] OPTOMETRY [address] [place] [address] Abdirahman, Mel, OD 230 [place] [address] 10/29/2025 11:15 AM EST Office Visit [facility] MEDICINE 230 [place] [address] Brooklyn Jalloh MD [address] [place] [address] documented as of this encounter Visit Diagnoses Not on filedocumented in this encounter Additional Health Concerns Assessment Noted Time PHQ-9 Depression Total Score: 6 02/05/20 23 11:27 AM EDT documented as of this encounter Care Teams Ed Teacher Relationship Specialty Start Date End Date Brooklyn Jalloh MD [address] [place], [place] [phone] PCP - General Family Medicine 07/17/21 documented as of this encounter
--- OUTSIDE RECORDS SUMMARY | 2025-08-31 17:36 | XMS_ITS | Encounter Summary ---
Author Organization [employer] Address 75 [facility] 7t [place] [address] Care Team Providers Care Shirrer Name Role Phone Brooklyn Jalloh MD Primary Care Provider [phone] Reason for Visit * Reason Onset Date Comments Referral 08/05/2024 Encounter Details Date Type Department Care Team ([facility] st Contact Info) Description 08/05/2024 Telephone [facility] MEDICINE 230 [place], [place] [phone] Brooklyn Jalloh MD 230 [place] [address] Referral Social History Tobacco Use Types Packs/Day [...] of the breast to be sent to [facility] Address: [address] [place] [address] Fax- [phone] documented in this encounter Plan of Treatment Upcoming Encounters Date Type Department Care Team (Late st Contact Info) Description 09/20/2025 10:00 AM EDT Office Visit [facility] OPTOMETRY [address] [place] [address] Abdirahman, Mel, OD 230 [place] [address] 10/29/2025 11:15 AM EST Office Visit [facility] MEDICINE [address] [place] [address] Brooklyn Jalloh MD 230 [place] [address] documented as of this encounter Visit Diagnoses Not on filedocumented in this encounter Additional Health Concerns Assessment Noted Time PHQ-9 Depression Total Score: 5 03/16/20 24 11:45 AM EDT documented as of this encounter Care Teams Shirrer Relationship Specialty Start Date End Date Brooklyn Jalloh MD 230 [place] [address] PCP - General Family Medicine 07/17/21 documented as of this encounter
--- OUTSIDE RECORDS SUMMARY | 2025-08-31 17:36 | XMS_ITS | Encounter Summary ---
Author Organization [employer] Address 75 [facility] 7t [place] [address] Care Team Providers Care Gambreler Name Role Phone Brooklyn Jalloh MD Primary Care Provider [phone] Encounter Details Date Type Department Care Team ([facility] Contact Info) Description 05/11/2023 Orders Only [facility] MEDICINE 230 [place] [address] Brooklyn Jalloh MD 230 [place] [address] Onychomycosis (Primary Dx) Social History Tobacco Use [...] Upcoming Encounters Date Type Department Care Team ([facility] Contact Info) Description 09/20/2025 10:00 AM EDT Office Visit [facility] OPTOMETRY [address] [place] [address] Mel Gary, OD 230 [place] [address] 10/29/2025 11:15 AM EST Office Visit [facility] MEDICINE [address] [place] [address] Brooklyn Jalloh MD 230 [place], [place] [phone] documented as of this encounter Visit Diagnoses Diagnosis Onychomycosis- Primary Dermatophytosis of nail documented in this encounter Additional Health Concerns Assessment Noted Time PHQ-9 Depression Total Score: 6 02/05/20 23 11:27 AM EDT documented as of this encounter Care Teams Gambreler Relationship Specialty Start Date End Date Brooklyn Jalloh MD [address] [place] [address] PCP - General Family Medicine 07/17/21 documented as of this encounter
--- OUTSIDE RECORDS SUMMARY | 2025-08-31 17:36 | XMS_ITS | Encounter Summary ---
Author Organization [employer] Address 75 [facility] 7t [place] [address] Care Team Providers Care All Round Butcher Name Role Phone Brooklyn Jalloh MD Primary Care Provider [phone] Encounter Details Date Type Department Care Team ([facility] st Contact Info) Description 03/19/2025 Orders Only [facility] MEDICINE 230 [place] [address] Brooklyn Jalloh MD [address] [place] [address] Contact with and (suspected) exposure to infections [...] 10:00 AM EDT Office Visit [facility] OPTOMETRY [address] [place] [address] Abdirahman, Mel, OD 230 [place] [address] 10/29/2025 11:15 AM EST Office Visit [facility] MEDICINE 230 [place] [address] Brooklyn Jalloh MD [address] [place] [address] documented as of this encounter Procedures Procedure [...] Results * T-SPOT??.TB (04/02/2025 11:49 AM EDT) [facility] T Spot TB Negative Negative [facility] Comment:A negative test resu lt [...] as aquantitative test. TS PANEL A 0 [facility] TS PANEL B 0 [facility] Negative Control Passed [facility] Positive Control Passed [facility] Comment:For additional infor luke, please refer tohttp://education.Seeo/faq/VFR765(This link is being provided for informational/educational purposes only.)THIS TEST WAS PERFORMED AT:[id number] [place] [address]WOVXCDAMARY SNOW MD,PHD 04/02/2025 11:4 9 AM EDT 04/02/2025 1:07 PM EDT us Brooklyn Jalloh MD LAB BLOOD ORDERABLES Final Res ult Performing Organization Address [facility] Co de Phone Number [facility] [address] [place] [address] [phone] * Hepatitis C Antibody with Reflex to HCV, RNA, Quantitative, Real-Time PCR (04/02/2025 11:49 AM EDT) Hepatitis C Antibody Nonreactive Nonreactive [facility] Comment:Antibodies to HCV no t detected; does not exclude early acuteHCV infection. Blood Venous blood specimen / Unknown 04/02/2025 11:49 AM EDT 04/02/2025 1:17 PM EDT us Brooklyn Jalloh MD LAB BLOOD ORDERABLES Final Res ult Performing Organization Address [facility] Co de Phone Number [facility] [address] [place] [phone] * HIV-1/2 Antigen and Antibodies, Fourth Generation, with Reflexes (04/02/2025 11:49 AM EDT) HIV AB/AG Nonreactive Nonreactive [facility] Comment:HIV-1 p24 Ag and/or HIV-1/HIV-2 Ab not detected.A test result that is nonreactive does not exclude thepossibility of exposure to or infection with HIV-1 and/orHIV-2. Nonreactive results in this assay for individualswith prior exposure to HIV-1 and/or HIV-2 may be due toantigen and antibody levels that are below the limit ofdetection of this assay.The [facility] [employer] HIV Ag/Ab Combo assay result andsupplemental assay [...] Res ult [facility] [address] [place] [address] [phone] documented in this encounter Visit Diagnoses Diagnosis Contact with and (suspected) exposure to infections with a predominantly sexual mode of transmission- Primary documented in this encounter Additional Health Concerns Assessment Noted Time PHQ-9 Depression Total Score: 5 03/16/20 24 11:45 AM EDT documented as of this encounter Care Teams All Round Butcher Relationship Specialty Start Date End Date Brooklyn Jalloh MD [address] [place] [address] PCP - General Family Medicine 07/17/21 documented as of this encounter
--- OUTSIDE RECORDS SUMMARY | 2025-08-31 17:37 | XMS_ITS | Encounter Summary ---
Author Organization [employer] Address 75 [facility] 7t [place] [address] Care Team Providers Care Client Account Specialist Name Role Phone Brooklyn Jalloh MD Primary Care Provider [phone] Encounter Details Date Type Department Care Team ([facility] Contact Info) Description 11/12/2022 Orders Only [facility] MEDICINE [address] [place] [address] Brooklyn Jalloh MD 230 [place] [address] Social History Tobacco Use Types Packs/Day Years [...] Upcoming Encounters Date Type Department Care Team ([facility] Contact Info) Description 09/20/2025 10:00 AM EDT Office Visit [facility] OPTOMETRY [address] [place] [address] Abdirahman, Mel, OD 230 [place] [address] 10/29/2025 11:15 AM EST Office Visit [facility] MEDICINE [address] [place] [address] Brooklyn Jalloh MD [address] [place] [address] documented as of this encounter Visit Diagnoses Not on filedocumented in this encounter Care Teams Client Account Specialist Relationship Specialty Start Date End Date Brooklyn Jalloh MD [address] [place] [address] PCP - General Family Medicine 07/17/21 documented as of this encounter
--- OUTSIDE RECORDS SUMMARY | 2025-08-31 17:37 | XMS_ITS | Encounter Summary ---
Author Organization [employer] Address 75 [facility] 7t [place] [address] Care Team Providers Care Professor Of Poultry Science Name Role Phone Brooklyn Jalloh MD Primary Care Provider [phone] Reason for Visit * Reason Comments Med Refill Encounter Details Date Type Department Care Team ([facility] st Contact Info) Description 08/18/2025 Refill [facility] MEDICINE [address] [place] [address] Brooklyn Jalloh MD [address] [place] [address] Cervical spondylosis; Degeneration of lumbar intervertebral disc Social History Tobacco Use Types Packs/Day Years [...] Answer Date Recorded Patient Health Questionnaire-9 Score 08/13/2025 Patient Health Questionnaire-9 Score 08/13/2025 Last PHQ-9: Questionnaire Data Not on file 0 08/13/2025 Housing Stability Answer Date Recorded What is [...] Answer Date Recorded Patient Health Questionnaire-2 Score 6 08/13/2025 Internet Access Answer Date Recorded Internet Access [...] Description 09/20/2025 10:00 AM EDT Office Visit [facility] OPTOMETRY [address] [place] [address] Mel Gary, OD [address] [place] [address] 10/29/2025 11:15 AM EST Office Visit [facility] [address] [place] [address] Brooklyn Jalloh MD [address] [place] [address] documented as of this encounter Visit Diagnoses Diagnosis Cervical spondylosis Cervical spondylosis without myelopathy Degeneration of lumbar intervertebral disc Degeneration of lumbar or lumbosacral intervertebral disc documented in this encounter Additional Health Concerns Assessment Noted Time PHQ-9 Depression Total Score: 19 025 11:41 AM EDT documented as of this encounter Care Teams Professor Of Poultry Science Relationship Specialty Start Date End Date Brooklyn Jalloh MD [address] [place] [address] PCP - General Family Medicine 07/17/21 documented as of this encounter
--- OUTSIDE RECORDS SUMMARY | 2025-08-31 17:37 | XMS_ITS | Encounter Summary ---
Author Organization [employer] Address 75 [facility] 7t [place] [address] Care Team Providers Care Commanding Officer Traffic Division Name Role Phone Brooklyn Jalloh MD Primary Care Provider Reason for Visit * Reason Comments Med Refill Encounter Details Date Type Department Care Team ([facility] st Contact Info) Description 05/18/2025 Refill [facility] MEDICINE [address] [place] [address] Brooklyn Jalloh MD 230 [place] [address] Social History Tobacco Use Types Packs/Day Years [...] Description 09/20/2025 10:00 AM EDT Office Visit [facility] OPTOMETRY [address] [place], [place] [phone] Mel Gary, OD [address] [place] [address] 10/29/2025 11:15 AM EST Office Visit [facility] MEDICINE [address] [place] [address] Brooklyn Jalloh MD [address] [place] [address] documented as of this encounter Visit Diagnoses Not on filedocumented in this encounter Additional Health Concerns Assessment Noted Time PHQ-9 Depression Total Score: 14 025 12:17 PM EDT documented as of this encounter Care Teams Commanding Officer Traffic Division Relationship Specialty Start Date End Date Brooklyn Jalloh MD [address] [place] [address] [phone] PCP - General Family Medicine 07/17/21 documented as of this encounter
--- OUTSIDE RECORDS SUMMARY | 2025-08-31 17:37 | XMS_ITS | Encounter Summary ---
Author Organization [employer] Address 75 [facility] 7t [place] [address] Care Team Providers Care Logistics Research Engineer Name Role Phone Brooklyn Jalloh MD Primary Care Provider [phone] Encounter Details Date Type Department Care Team (Latest Contact Info) Description 04/06/2021 Abstract [facility] CONVERSIONS Dental, Provider, DDS Social History [...] Description 09/20/2025 10:00 AM EDT Office Visit [facility] OPTOMETRY [address] [place] [address] Abdirahman, Mel, OD 230 [place] [address] 10/29/2025 11:15 AM EST Office Visit [facility] MEDICINE [address] [place] [address] Brooklyn Jalloh MD 230 [place] [address] documented as of this encounter Visit Diagnoses Not on filedocumented in this encounter Care Teams Logistics Research Engineer Relationship Specialty Start Date End Date Brooklyn Jalloh MD [address] [place] [address] PCP - General Family Medicine 07/17/21 documented as of this encounter
--- OUTSIDE RECORDS SUMMARY | 2025-08-31 17:37 | XMS_ITS | Encounter Summary ---
Author Organization [employer] Address 75 [facility] 7t [place] [address] Care Team Providers Care Cigar Packer And Shader Name Role Phone Brooklyn Jalloh MD Primary Care Provider [phone] Reason for Visit * Reason Comments Med Refill Encounter Details Date Type Department Care Team (Late Contact Info) Description 07/29/2023 Refill [facility] MED [facility] PEDS [address] [place], [place] [phone] Brooklyn Jalloh MD 230 [place], [place] [phone] Social History Tobacco Use Types Packs/Day Years [...] Department Care Team (Late Contact Info) Description 09/20/2025 10:00 AM EDT Office Visit [facility] OPTOMETRY [address] [place], [place] [phone] Abdirahman, Mel, OD 230 [place], [place] [phone] 10/29/2025 11:15 AM EST Office Visit [facility] MEDICINE 230 [place] [address] Brooklyn Jalloh MD 230 [place] [address] documented as of this encounter Visit Diagnoses Not on filedocumented in this encounter Additional Health Concerns Assessment Noted Time PHQ-9 Depression Total Score: 6 02/05/20 23 11:27 AM EDT documented as of this encounter Care Teams Cigar Packer And Shader Relationship Specialty Start Date End Date Brooklyn Jalloh MD 230 [place] [address] PCP - General Family Medicine 07/17/21 documented as of this encounter
--- OUTSIDE RECORDS SUMMARY | 2025-08-31 17:37 | XMS_ITS | Encounter Summary ---
Author Organization [email or web address] Address 75 [facility] 7t [place] [address] Care Team Providers Care Crystalizer Operator Name Role Phone Brooklyn Jalloh MD Primary Care Provider [phone] Encounter Details Date Type Department Care Team (Late Contact Info) Description 07/23/2023 Abstract [facility] MEDICINE [address] [place] [phone] Brooklyn Jalloh MD [address] [place] [address] Social History Tobacco Use Types Packs/Day Years [...] Description 09/20/2025 10:00 AM EDT Office Visit [facility] OPTOMETRY [address] [place], [place] [phone] Abdirahman, Mel, OD 230 [place] [address] 10/29/2025 11:15 AM EST Office Visit [facility] MEDICINE 230 [place] [address] Brooklyn Jalloh MD 230 [place] [address] documented as of this encounter Visit Diagnoses Not on filedocumented in this encounter Additional Health Concerns Assessment Noted Time PHQ-9 Depression Total Score: 6 02/05/20 23 11:27 AM EDT documented as of this encounter Care Teams Crystalizer Operator Relationship Specialty Start Date End Date Brooklyn Jalloh MD 230 [place] [address] PCP - General Family Medicine 07/17/21 documented as of this encounter
--- OUTSIDE RECORDS SUMMARY | 2025-08-31 17:37 | XMS_ITS | Encounter Summary ---
Author Organization [employer] Address 75 [facility] 7t h Floor [place] [phone] Care Team Providers Care Weed Burner Name Role Phone Brooklyn Jalloh MD Primary Care Provider [phone] Reason for Visit * Reason Onset Date Comments referral 11/29/2023 Encounter Details Date Type Department Care Team ([facility] st Contact Info) Description 11/29/2023 Telephone [facility] MEDICINE 230 [place], [place] [phone] Brooklyn Jalloh MD 230 [place] [address] referral Social History Tobacco Use Types Packs/Day [...] Notes * Telephone Encounter - Giuliana Copeland Aviles - 11/29/2023 1:47 PM EST Tc from pt requesting a Referral for [facility] Gastrology with Dr. Aldrich @ [address] [place] [address] to be further Evaluated for her Diagnoses @ the [facility] of gastroenteritis. Please contact pt @ [phone] documented in this encounter Plan of Treatment Upcoming Encounters Date Type Department Care Team ([facility] st Contact Info) Description 09/20/2025 10:00 AM EDT Office Visit [facility] OPTOMETRY [address] [place] [address] Mel Gary, OD 230 [place] [address] 10/29/2025 11:15 AM EST Office Visit [facility] MEDICINE [address] [place] [address] Brooklyn Jalloh MD 230 [place] [address] documented as of this encounter Visit Diagnoses Not on filedocumented in this encounter Additional Health Concerns Assessment Noted Time PHQ-9 Depression Total Score: 6 02/05/20 23 11:27 AM EDT documented as of this encounter Care Teams Weed Burner Relationship Specialty Start Date End Date Brooklyn Jalloh MD 230 [place] [address] PCP - General Family Medicine 07/17/21 documented as of this encounter
--- OUTSIDE RECORDS SUMMARY | 2025-08-31 17:37 | XMS_ITS | Encounter Summary ---
Author Organization [email or web address] Address 75 [facility] 7t [place] [address] Care Team Providers Care Sole Stitcher Hand Name Role Phone Brooklyn Jalloh MD Primary Care Provider [phone] Encounter Details Date Type Department Care Team (Latest Contact Info) Description 05/12/2019 Abstract [facility] CONVERSIONS Dental, Provider, DDS Social [...] Description 09/20/2025 10:00 AM EDT Office Visit [facility] OPTOMETRY [address] [place] [address] Abdirahman, Mel, OD 230 [place] [address] 10/29/2025 11:15 AM EST Office Visit [facility] MEDICINE 230 [place] [address] Brooklyn Jalloh MD 230 [place] [address] documented as of this encounter Visit Diagnoses Not on filedocumented in this encounter Care Teams Sole Stitcher Hand Relationship Specialty Start Date End Date Brooklyn Jalloh MD [address] [place] [address] PCP - General Family Medicine 07/17/21 documented as of this encounter
--- OUTSIDE RECORDS SUMMARY | 2025-08-31 17:37 | XMS_ITS | Encounter Summary ---
Author Organization [employer] Address 75 [facility] 7t [place] [address] Care Team Providers Care Scales Inspector Name Role Phone Brooklyn Jalloh MD Primary Care Provider Reason for Visit * Reason Comments Med Refill Encounter Details Date Type Department Care Team ([facility] st Contact Info) Description 08/20/2025 Refill [facility] MEDICINE 230 [place] [address] Brooklyn Jalloh MD 230 [place] [address] Social History Tobacco Use Types Packs/Day Years [...] Description 09/20/2025 10:00 AM EDT Office Visit [facility] OPTOMETRY [address] [place] [address] Mel Gary, OD [address] [place] [address] 10/29/2025 11:15 AM EST Office Visit [facility] MEDICINE 230 [place] [address] Brooklyn Jalloh MD 230 [place] [address] documented as of this encounter Visit Diagnoses Not on filedocumented in this encounter Additional Health Concerns Assessment Noted Time PHQ-9 Depression Total Score: 19 025 11:41 AM EDT documented as of this encounter Care Teams Scales Inspector Relationship Specialty Start Date End Date Brooklyn Jalloh MD [address] [place] [id number] PCP - General Family Medicine 07/17/21 documented as of this encounter
--- OUTSIDE RECORDS SUMMARY | 2025-08-31 17:37 | XMS_ITS | Encounter Summary ---
Author Organization [employer] Address 75 [facility] 7t [place] [address] Care Team Providers Care Heating And Cooling Technician Name Role Phone Brooklyn Jalloh MD Primary Care Provider [phone] Encounter Details Date Type Department Care Team (Latest Contact Info) Description 06/27/2022 Abstract [facility] CONVERSIONS Dental, Provider, DDS Social [...] Description 09/20/2025 10:00 AM EDT Office Visit [facility] OPTOMETRY [address] [place] [address] Abdirahman, Mel, OD 230 [place] [address] 10/29/2025 11:15 AM EST Office Visit [facility] MEDICINE 230 [place] [address] Brooklyn Jalloh MD 230 [place] [address] documented as of this encounter Visit Diagnoses Not on filedocumented in this encounter Care Teams Heating And Cooling Technician Relationship Specialty Start Date End Date Brooklyn Jalloh MD [address] [place] [address] PCP - General Family Medicine 07/17/21 documented as of this encounter
--- OUTSIDE RECORDS SUMMARY | 2025-08-31 17:37 | XMS_ITS | Encounter Summary ---
Author Organization [employer] Address 75 [facility] 7t [place] [address] Care Team Providers Care Medical Insurance Clerk Name Role Phone Brooklyn Jalloh MD Primary Care Provider [phone] Encounter Details Date Type Department Care Team (Late st Contact Info) Description 08/24/2025 Orders Only [facility] MEDICINE [address] [place] [address] Brooklyn Jalloh MD [address] [place] [address] Social History Tobacco Use Types Packs/Day Years [...] Description 09/20/2025 10:00 AM EDT Office Visit [facility] OPTOMETRY [address] [place] [address] Abdirahman, Mel, OD 230 [place] [address] 10/29/2025 11:15 AM EST Office Visit [facility] MEDICINE 230 [place] [address] Brooklyn Jalloh MD [address] [place] [address] documented as of this encounter Visit Diagnoses Not on filedocumented in this encounter Additional Health Concerns Assessment Noted Time PHQ-9 Depression Total Score: 19 025 11:41 AM EDT documented as of this encounter Care Teams Medical Insurance Clerk Relationship Specialty Start Date End Date Brooklyn Jalloh MD [address] [place] [address] PCP - General Family Medicine 07/17/21 documented as of this encounter
--- OUTSIDE RECORDS SUMMARY | 2025-08-31 17:37 | XMS_ITS | Encounter Summary ---
Author Organization [employer] Address 75 [facility] 7t [place] [address] Care Team Providers Care Machine Puller And Laster Name Role Phone Brooklyn Jalloh MD Primary Care Provider [phone] Reason for Visit * Reason Comments Med Refill Encounter Details Date Type Department Care Team ([facility] st Contact Info) Description 08/23/2025 Refill [facility] MEDICINE [address] [place] [address] Brooklyn Jalloh MD [address] [place] [address] Social History Tobacco Use Types Packs/Day Years [...] Description 09/20/2025 10:00 AM EDT Office Visit [facility] OPTOMETRY [address] [place] [address] Mel Gary, OD 230 [place] [address] 10/29/2025 11:15 AM EST Office Visit [facility] MEDICINE [address] [place] [address] Brooklyn Jalloh MD [address] [place] [address] documented as of this encounter Visit Diagnoses Not on filedocumented in this encounter Additional Health Concerns Assessment Noted Time PHQ-9 Depression Total Score: 19 025 11:41 AM EDT documented as of this encounter Care Teams Machine Puller And Laster Relationship Specialty Start Date End Date Brooklyn Jalloh MD [address] [place] [address] PCP - General Family Medicine 07/17/21 documented as of this encounter
--- OUTSIDE RECORDS SUMMARY | 2025-08-31 17:37 | XMS_ITS | Clinical Summary ---
Author Organization [address] [facility] Address [address] [place] [address] Phone Care Team Providers Care Motorcycle Riding Instructor Name Role Phone Brooklyn Jalloh MD Primary Care Provider [phone] Allergies Active Allergy Reactions Criticality Noted Date [...] Care Team (Late st Contact Info) Description 10/05/2025 10:45 AM EST Office Visit [facility] [place] [address] [address] Scot Durant DPM [address] [address] Health Maintenance Due Date Last Done Comments Breast Cancer Screening 1968 Colorectal Cancer Screening: Colonoscopy 1970 Pneumococcal Vaccine: 50+ Years (1 of 2 - PCV) 02/25/1987 Cervical Cancer Screening: Pap Smear 02/25/1989 Medicare Annual Wellness Visit 12/20/2023 Social Influencers of Health Screening 12/20/2023 Depression Screening 11/25/2024 COVID-19 Vaccine ( - season) 2025 11/07/2021, 03/29/2021, 03/01/2021 Influenza Vaccine (#1) 2025 , 08/23/2023, 09/17/2022, Additional history exists Hypertension/CHF/CAD Annual BMP Blood Test 08/31/2025 08/31/2024, 08/31/2024 Cholesterol Screening (Lipid Panel) 10/11/2027 10/11/2022, 02/21/2021 DTaP,Tdap,and Td Vaccines (2 - Td or Tdap) 12/23/2027 12/23/2017 RSV Immunization Adult Patients (1 - 1-dose 75+ series) 02/25/2043 Hepatitis [...] * Annual BMP Blood Test (08/31/2024) Pathologist [facility] Annual BMP Blood Test abstracted [facility] Provider HEALTH MAINTENANCE Final Result * HIV Screening (08/18/2024) [facility] HIV Screening abstracted [facility] Provider HEALTH MAINTENANCE Final Result * Hepatitis C Screening (08/18/2024) [facility] Hepatitis C Screening abstracted [facility] Provider HEALTH MAINTENANCE Final Result * Lipid panel (02/21/2021) [facility] LDL/HDL Ratio 0 Comment:abstracted, no inter pretation Triglycerides 0 mg/dL Comment:abstracted, no inter pretation Cholesterol 0 mg/dL Comment:abstracted, no inter pretation HDL 0 mg/dL Comment:abstracted, no inter pretation LDL Cholesterol 0 mg/dL Comment:abstracted, no inter pretation Blood Venous blood specimen / Unknown [facility] Provider LAB BLOOD ORDERABLES Julianne l Result from Last 3 Months or Most Recently Relevant to Health Maintenance Insurance [facility] [employer] Member Subscriber Plan / Payer (Ef fective 2018-Present) Name:MACHELLE CUNNINGHAM Relation to Subscriber:Self Name:Machelle Cunningham Payer ID:[id number] Group ID:[id number] Type:Not on file Address: [address] [place] [address] Care Teams Motorcycle Riding Instructor Relationship Specialty Start Date End Date Brooklyn Jalloh MD [address] [place] [address] PCP - General 09/12/22
--- OUTSIDE RECORDS SUMMARY | 2025-08-31 17:37 | XMS_ITS | Encounter Summary ---
Author Organization [employer] Address 75 [facility] 7t [place] [address] Care Team Providers Care Grill Cook Name Role Phone Brooklyn Jalloh MD Primary Care Provider [phone] Reason for Visit * Reason Comments Med Refill Encounter Details Date Type Department Care Team ([facility] st Contact Info) Description 08/05/2025 Refill [facility] MEDICINE [address] [place] [address] Brooklyn Jalloh MD [address] [place] [address] Social History Tobacco Use Types Packs/Day Years [...] Description 09/20/2025 10:00 AM EDT Office Visit [facility] OPTOMETRY [address] [place], [place] [phone] Mel Gary, OD 230 [place] [address] 10/29/2025 11:15 AM EST Office Visit [facility] MEDICINE [address] [place] [address] Brooklyn Jalloh MD [address] [place] [address] documented as of this encounter Visit Diagnoses Not on filedocumented in this encounter Additional Health Concerns Assessment Noted Time PHQ-9 Depression Total Score: 14 025 12:17 PM EDT documented as of this encounter Care Teams Grill Cook Relationship Specialty Start Date End Date Brooklyn Jalloh MD [address] [place] [phone] PCP - General Family Medicine 07/17/21 documented as of this encounter
--- OUTSIDE RECORDS SUMMARY | 2025-08-31 17:37 | XMS_ITS | Encounter Summary ---
Author Organization [employer] Address [address] [facility] [address] [place] [address] Care Team Providers Care Plaster Lather Name Role Phone Brooklyn Jalloh MD Primary Care Provider [phone] Encounter Details Date Type Department Care Team (Late st Contact Info) Description 12/22/2023 Orders Only [facility] MEDICINE [address] [place], [place] [phone] Brooklyn Jalloh MD [address] [place], [place] [phone] Bronchitis (Primary Dx) Social History Tobacco Use [...] 10:00 AM EDT Office Visit [facility] OPTOMETRY [address] [place] [address] Abdirahman, Mel, OD [address] [place] [address] 10/29/2025 11:15 AM EST Office Visit [facility] MEDICINE [address] [place] [address] Brooklyn Jalloh MD [address] [place] [address] documented as of this encounter Procedures Procedure Name Priority Date/Time Associated Diagnosis Comments CBC WITH AUTO DIFFERENTIAL Routine 12/25/2023 12:28 PM EST Bronchitis documented in this encounter Results * (ABNORMAL) CBC auto differential (12/25/2023 12:28 PM EST) White Blood Count 15.4(H) 4.8 - 10.8 X10*3/uL [facility] Red Blood Count 5.11 4.20 - 5.50 X10*6/uL [facility] Hemoglobin 13.7 12.0 - 16.0 g/dl [facility] Hematocrit 42.6 37.0 - 47.0 % [facility] Mean Corpuscular Volume 83.4 80.0 - 98.[address] [facility] Mean Corpuscular Hemoglobin 26.8(L) 27.0 - 33.[address] [facility] Mean Corpuscular HGB Conc 32.2 31.0 - 35.0 g/dl [facility] Red Cell Distribution Width 13.9 11.0 - 16.0 % [facility] Platelet Count 442(H) 160 - 400 X10*3/uL [facility] Mean Platelet Volume 10.1 9.4 - 12.[address] [facility] Neutrophils Percent Auto 71.8 45 - 73 % [facility] Imm Gran Pct Auto 0.5(H) 0.0 - 0.4 % [facility] Lymphocytes Percent Auto 20.8 20 - 40 % [facility] Monocytes Percent Auto 6.7 2 - 11 % [facility] Eosinophils Percent Auto 0.1 0 - 4 % [facility] Basophils Percent Auto 0.1 0 - 2 % [facility] NRBC Pct Auto 0.0 0.0 - 0.2 /100WBC [facility] Neutrophils Absolute Auto 11.0(H) 2.0 - 8.3 x10*3/uL [facility] Imm Gran Abs Auto 0.08(H) 0.00 - 0.03 X10*3/uL [facility] Lymphocytes Absolute Auto 3.2 1.2 - 4.9 X10*3/uL [facility] Monocytes Absolute Auto 1.0 0.1 - 1.2 X10*3/uL [facility] Eosinophils Absolute Auto 0.0 0.0 - 0.4 X10*3/uL [facility] Basophils Absolute Auto 0.0 0.0 - 0.2 X10*3/uL [facility] NRBC Abs Auto 0.000 0.0 - 0.012 X10*3/uL [facility] Blood Venous blood specimen / Unknown 12/25/2023 12:28 PM EST 12/25/2023 1:09 PM EST Brooklyn Jalloh MD LAB BLOOD ORDERABLES Final Res ult [facility] [address] [place] [address] [phone] documented in this encounter Visit Diagnoses Diagnosis Bronchitis- Primary Bronchitis, not specified as acute or chronic documented in this encounter Additional Health Concerns Assessment Noted Time PHQ-9 Depression Total Score: 6 02/05/20 23 11:27 AM EDT documented as of this encounter Care Teams Plaster Lather Relationship Specialty Start Date End Date Brooklyn Jalloh MD [address] [place] [id number] PCP - General Family Medicine 07/17/21 documented as of this encounter
--- OUTSIDE RECORDS SUMMARY | 2025-08-31 17:37 | XMS_ITS | Encounter Summary ---
Author Organization [employer] Address [address] [facility] 7[address] [place] [address] Care Team Providers Care Scene Shifter Name Role Phone Brooklyn Jalloh MD Primary Care Provider [phone] Reason for Visit * Reason Onset Date Comments Appointment Request 03/19/2025 Encounter Details Date Type Department Care Team ([facility] st Contact Info) Description 03/19/2025 Telephone [facility] [address] [place] [address] Brooklyn Jalloh MD [address] [place] [address] Appointment Request Social History Tobacco Use Types [...] Description 09/20/2025 10:00 AM EDT Office Visit [facility] [address] [place], [place] [phone] Mel Gary, DANI [address] [place] [address] 10/29/2025 11:15 AM EST Office Visit [facility] [address] [place] [address] Brooklyn Jalloh MD [address] [place] [address] documented as of this encounter Visit Diagnoses Not on filedocumented in this encounter Additional Health Concerns Assessment Noted Time PHQ-9 Depression Total Score: 5 03/16/20 24 11:45 AM EDT documented as of this encounter Care Teams Scene Shifter Relationship Specialty Start Date End Date Brooklyn Jalloh MD [address] [place] [address] PCP - General Family Medicine 07/17/21 documented as of this encounter
--- OUTSIDE RECORDS SUMMARY | 2025-08-31 17:37 | XMS_ITS | Encounter Summary ---
Author Organization [employer] Address [address] [facility] 7t [place] [address] Care Team Providers Care Crop Picker Name Role Phone Brooklyn Jalloh MD Primary Care Provider [phone] Reason for Referral * Consultation (Routine) - Closed Specialty Diagnoses / Procedures Referred By Tenzin ahumada Referred To Contact Orthopaedic Surgery Diagnoses Primary osteoarthritis of both knees Brooklyn Jalloh MD [address] [place] [address] Phone: tel: fax: [facility] [address] [place] [address] Phone: tel: Referral ID Status Reason Start Date Expiration Date V isits Requested Visits Authorized [id number] Closed Specialty Services Required 02/18/2024 02/17/2025 1 1 Encounter Details Date Type Department Care Team (Late st Contact Info) Description 02/18/2024 Orders Only [facility] [address] [place] [address] Brooklyn Jalloh MD [address] [place] [address] Primary osteoarthritis of both knees (Primary Dx) [...] Description 09/20/2025 10:00 AM EDT Office Visit [facility] [address] [place] [address] Abdirahman, Mel, OD [address] [place] [address] 10/29/2025 11:15 AM EST Office Visit [facility] [address] [place] [address] Brooklyn Jalloh MD [address] [place], [place] [phone] Scheduled Referrals Name Type Priority Associated Diagnoses [...] PM EDT Narrative 03/09/2024 2:27 PM EDT [address] [address] XRay Report Signed Patient: Machelle Wooten MR#: [id number] : 1970 Acct:[id number] Age/Sex: 54 / F ADM Date: 03/09/24 Loc: HO.ED Attending Dr: Ordering Physician: Zack Lainez Date of Service: 03/09/24 Procedure(s): XR chest 2V Accession Number(s): [id number] cc: Brooklyn Jalloh; Zack Lainez EXAMINATION: XR [...] in OV> 03/09/24 1424 DD/ 1408 TD/TT: Publications Designer: CLEO Procedure Note Donotuseinterpreter, Image - 03/09/[address] [address] XRay Report Signed Patient: Machelle WootenMR#: [id number] : 1970Acct:[id number] Age/Sex: 54 / FADM Date: 03/09/24 Loc: HO.ED Attending Dr: Ordering Physician: Zack Lainez Date of Service: 03/09/24 Procedure(s): XR chest 2V Accession Number(s): [id number] cc: Brooklyn Jalloh; Zack Lainez EXAMINATION: XR [...] DO inOV> 03/09/24 1424 DD/ 1408 TD/TT: Publications Designer: CLEO [facility] External Provider IMG XR PROCEDURES Edited Result - Final documented in this encounter Visit Diagnoses Diagnosis Primary osteoarthritis of both knees- Primary documented in this encounter Additional Health Concerns Assessment Noted Time PHQ-9 Depression Total Score: 6 02/05/20 23 11:27 AM EDT documented as of this encounter Care Teams Crop Picker Relationship Specialty Start Date End Date Brooklyn Jalloh MD [address] [place] [address] PCP - General Family Medicine 07/17/21 documented as of this encounter
--- OUTSIDE RECORDS SUMMARY | 2025-08-31 17:37 | XMS_ITS | Encounter Summary ---
Author Organization [employer] Address [address] [facility] [address] [place] [address] Care Team Providers Care Film Numberer Name Role Phone Brooklyn Jalloh MD Primary Care Provider [phone] Encounter Details Date Type Department Care Team (Late st Contact Info) Description 03/10/2024 Orders Only [facility] [address] [place], [place] [phone] Brooklyn Jalloh MD [address] [place] [address] Social History Tobacco Use Types Packs/Day Years [...] Description 09/20/2025 10:00 AM EDT Office Visit [facility] [address] [place] [address] Abdirahman, Mel, OD [address] [place] [address] 10/29/2025 11:15 AM EST Office Visit [facility] [address] [place] [address] Brooklyn Jalloh MD [address] [place] [address] documented as of this encounter Visit Diagnoses Not on filedocumented in this encounter Additional Health Concerns Assessment Noted Time PHQ-9 Depression Total Score: 6 02/05/20 23 11:27 AM EDT documented as of this encounter Care Teams Film Numberer Relationship Specialty Start Date End Date Brooklyn Jalloh MD [address] [place], [place] [phone] PCP - General Family Medicine 07/17/21 documented as of this encounter
--- OUTSIDE RECORDS SUMMARY | 2025-08-31 17:37 | XMS_ITS | Encounter Summary ---
Author Organization [employer] Address [address] [facility] 7[address] [place] [address] Care Team Providers Care Junior Electrical Engineer Name Role Phone Brooklyn Jalloh MD Primary Care Provider [phone] Reason for Visit * Reason Onset Date Comments Medication Question 11/19/2024 Encounter Details Date Type Department Care Team ([facility] st Contact Info) Description 11/19/2024 Telephone [facility] [address] [place] [address] Brooklyn Jalloh MD [address] [place] [address] Medication Question Social History Tobacco Use Types [...] 09/20/2025 10:00 AM EDT Office Visit [facility] [address] [place] [address] Abdirahman, Mel, OD [address] [place] [address] 10/29/2025 11:15 AM EST Office Visit [facility] [address] [place] [address] Brooklyn Jalloh MD [address] [place] [address] documented as of this encounter Visit Diagnoses Not on filedocumented in this encounter Additional Health Concerns Assessment Noted Time PHQ-9 Depression Total Score: 5 03/16/20 24 11:45 AM EDT documented as of this encounter Care Teams Junior Electrical Engineer Relationship Specialty Start Date End Date Brooklyn Jalloh MD [address] [place], [place] [phone] PCP - General Family Medicine 07/17/21 documented as of this encounter
--- OUTSIDE RECORDS SUMMARY | 2025-08-31 17:37 | XMS_ITS | Clinical Summary ---
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 90 tablet 3 Active lidocaine (Lidoderm) 5 % patchIndications: Calcific tendonitis of right shoulder Apply 1 patch topically Once per day. Remove & discard patch within 12 hours or as directed by MD. 30 patch 1 Active cholecalciferol (Vitamin D-3) 25 MCG tabletIndications :Vitamin D deficiency TAKE 1 TABLET BY MOUTH EVERY DAY 90 tablet 3 Active glucose blood (FREESTYLE LITE) test strip [...] vaginally twice a week 42.5 g 2 Active nortriptyline (Pamelor) 10 MG capsule TAKE 1 CAPSULE BY MOUTH EVERY DAY AT BEDTIME NEEDED FOR BACK PAIN 90 capsule 3 025 Active Ketotifen Fumarate 0.035 % solution Administer 1 drop into affected eye(s) in the morning and 1 drop in the evening. 10 mL 2 025 Active Fluticasone Furoate-Vilantero l (Breo Ellipta) 100-25 MCG/ACT aerosol powderIndications :Moderate persistent asthma, unspecified whether complicated Inhale 1 puff if needed in the morning and at bedtime (may increase for 1 week,). 1 each Active albuterol (2.5 MG/3ML) 0.083% nebulizer [...] NEEDED FOR CONSTIPATION 30 packet 6 Active simethicone (Mylicon) 80 MG chewable tabletIndications :Biliary colic CHEW and SWALLOW 1 TABLET BY MOUTH EVERY 8 HOURS NEEDED FOR GAS 90 tablet 3 Active fluticasone (Flonase) 50 MCG/ACT nasal spray [...] Active predniSONE (Deltasone) 20 MG tablet Active docusate sodium (Colace) 100 MG capsule TAKE 1 CAPSULE BY MOUTH TWICE DAILY NEEDED FOR CONSTIPATION 180 capsule Active lisinopril 5 MG tablet TAKE 1 TABLET BY MOUTH EVERY DAY 90 tablet Active Colchicine 0.6 MG capsule TAKE 1 CAPSULE BY MOUTH EVERY DAY FOR 4 MONTHS Active Trelegy Ellipta 200-62.5-25 MCG/ACT aerosol powder INHALE 1 PUFF BY MOUTH EVERY DAY AT THE SAME TIME RINSE MOUTH AFTER USING Active levoFLOXacin (Levaquin) 750 MG tablet Take 1 tablet by mouth Once per day. Active ibuprofen 800 MG tablet Take 1 tablet by mouth every 6 (six) hours during the day. Active fexofenadine (Elodia) 180 MG tablet Take 1 tablet (180 mg) by mouth if needed each day (Allergies). 90 tablet 3 025 2024 Active acetaminophen (Tylenol 8 Hour) 650 MG ER tablet TAKE 1 TABLET BY MOUTH EVERY 6 HOURS NEEDED SWALLOW WHOLE DO NOT BREAK, CRUSH, DISSOLVE OR CHEW 90 tablet 3 Active aspirin-acetamino phen-caffeine (Pain Reliever Plus) 250-250-65 MG tabletIndications :Other migraine without status migrainosus, not intractable Take 1 tablet by mouth every 6 (six) hours if needed for headaches. 30 tablet 3 Active baclofen (Lioresal) 10 MG tablet Take 1 tablet (10 mg) by mouth 3 times daily. 90 tablet 2 025 2024 Active acetaminophen (Tylenol 8 Hour) 650 MG ER tablet TAKE 1 TABLET BY MOUTH EVERY 6 HOURS NEEDED SWALLOW WHOLE WITH WATER DO NOT BREAK, CRUSH, DISSOLVE OR CHEW 90 tablet 3 025 2024 Discontinued Pain Reliever Plus 250-250-65 MG tablet TAKE 1 TABLET BY MOUTH EVERY 6 HOURS NEEDED FOR HEADACHE 30 tablet 3 025 2024 Discontinued(R eorder (will not trigger notification to Pharmacy)) cyclobenzaprine (Flexeril) 10 MG tablet take 1 tablet by mouth three times a day as needed for muscle spasm 025 2024 Discontinued(T herapy completed) Dextromethorphan HBr (Robitussin Lingering CoughGels) 15 MG capsuleIndication s:Mild persistent asthma, unspecified whether complicated Take 1 capsule by mouth if needed in the morning and at bedtime (cough/phlegm). 28 capsule 025 2024 Discontinued(T herapy completed) cetirizine (ZyrTEC) 10 MG tablet Take 1 tablet (10 mg) by mouth Once per day. 30 tablet 11 025 2024 Discontinued(I neffective) Active Problems Problem Noted Date Diagnosed Date Acute idiopathic pericarditis 08/16/2025 Assessment & Plan (08/16/2025 9:30 AM EDT): Diagnosis in ER 08/04/25 via bedside ultrasound - Follow-up with [facility] solution architect on August 31, 2025 Acute left-sided low back pain 07/13/2025 Assessment [...] and follow-up results COPD with acute exacerbation ([facility]) Assessment & Plan (06/26/2025 11:15 AM EDT): [...] of the superior rotator cuff. Plan: PT Lizbeth schaefer consult for consideration of steroid injection. If [...] (08/12/2024 11:39 AM EDT): Continue followup with [facility] ortho for viscosupplementation Assessment & Plan (02/13/2023 [...] EDT): Diet controlled Will start going to [facility] with her daughter as well Anxiety [...] Encounters Date Type Department Care Team Description 08/24/2025 Orders Only [facility] [address] [place] [address] Brooklyn Jalloh MD 08/24/2025 Refill [facility] [address] [place] [address] Brooklyn Jalloh MD Other migraine without status migrainosus, not intractable 08/23/2025 Refill [facility] [address] [facility] [place] [address] Brooklyn Jalloh MD 08/20/2025 Telephone [facility] [address] [facility] [place] [address] Brooklyn Jalloh MD Med Refill 08/20/2025 Refill [facility] [address] [place] [phone] Brooklyn Jalloh MD 08/18/2025 Telephone [facility] [address] [place] [phone] Brooklyn Jalloh MD Medication Question 08/18/2025 Refill [facility] [address] [place] [phone] Brooklyn Jalloh MD Cervical spondylosis; Degeneration of lumbar intervertebral disc 08/15/2025 Refill [facility] [address] [place] [phone] Brooklyn Jalloh MD 08/13/2025 11:15 AM EDT Office Visit [facility] [address] [place] [phone] Brooklyn Jalloh MD Moderate persistent asthma without complication (Primary Dx); Acute idiopathic pericarditis; Esophageal dysphagia; Primary hypertension; Gastroesophageal reflux disease without esophagitis; Depression, recurrent (CMS/HCC); Generalized anxiety disorder; Fibromyalgia; Calcific tendonitis of right shoulder; Degeneration of intervertebral disc of lumbar region, unspecified whether pain present 08/13/2025 Travel 08/12/2025 Telephone [facility] [address] [place] [phone] Brooklyn Jalloh MD Chart Prep 08/05/2025 Refill [facility] [address] [place] [address] Brooklyn Jalloh MD 08/04/2025 Orders Only GENERIC EXTERNAL DATA DEPARTMENT Provider, Generic External Data 07/30/2025 Refill [facility] [address] [place] [phone] Brooklyn Jalloh MD 07/30/2025 Refill [facility] [address] [place] [address] Brooklyn Jalloh MD 07/23/2025 11:00 AM EDT Office Visit [facility] [address] [place] [phone] Raffi Mendoza MD Moderate persistent asthma, unspecified whether complicated (Primary Dx) 07/23/2025 Travel 07/22/2025 Telephone [facility] [address] [place] [phone] Karley Smith MA CHARTPREP 07/22/2025 Orders Only [facility] External Provider, [facility] 07/20/2025 Telephone [facility] [address] [place] [phone] Brooklyn Jalloh MD Referral 07/19/2025 1:40 PM EDT [facility] [address] [address] Zhane Gandhi MD Chronic cough (Primary Dx); Viral URI 07/19/2025 Travel 07/13/2025 1:40 PM EDT [facility] [address] [address] Lida Francisco MD Lower abdominal pain; Acute left-sided low back pain, unspecified whether sciatica present 07/13/2025 Travel 07/11/2025 Refill [facility] [address] [place] [phone] Brooklyn Jalloh MD Biliary colic 07/06/2025 2:40 PM EDT [facility] [address] [address] Zhane Gandhi MD Subacute cough (Primary Dx); Postnasal drip 07/06/2025 Travel 06/29/2025 Refill [facility] [address] [place] [address] Brooklyn Jalloh MD Constipation, unspecified constipation type 06/26/2025 10:00 AM EDT [facility] [address] [address] Brooklyn Jalloh MD Bronchitis (Primary Dx); Sore throat; COPD with acute exacerbation ([facility]) 06/26/2025 Travel 06/21/2025 [facility]ill [facility] [address] [address] Raffi Mendoza MD Cough in adult patient from Last 3 Months Immunizations Immunization Administration [...] Answer Date Recorded Patient Health Questionnaire-9 Score 19 08/13/2025 Patient Health Questionnaire-9 Score 19 08/13/2025 Last PHQ-9: Questionnaire Data Not on [...] Sign Reading Time Taken Comments Blood Pressure 128/66 08/13/2025 11:11 AM EDT Pulse 60 08/13/2025 11:11 AM EDT Temperature 36.8 C (98.2 F) 08/13/2025 11:11 AM EDT Respiratory Rate 16 08/13/2025 11:11 AM EDT Oxygen Saturation 98% 07/23/2025 11:17 AM EDT Inhaled Oxygen Concentration - - Weight 89.5 kg (197 lb 4 oz) 08/13/2025 11:11 AM EDT Height 165.1 cm (5' 5 ) 08/13/2025 11:11 AM EDT Body Mass Index 32.82 08/13/2025 11:11 AM EDT Plan of Treatment Upcoming Encounters Date Type Department Care Team (Late st Contact Info) Description 09/20/2025 10:00 AM EDT Office Visit [facility] [address] [place] [address] Abdirahman, Mel, OD [address] [place] [address] 10/29/2025 11:15 AM EST Office Visit [facility] [address] [place] [address] Brooklyn Jalloh MD [address] [place] [address] Health Maintenance Due Date Last Done Comments CT Colonography 1970 FIT DNA/Cologuard 1970 FIT 1970 FOBT 1970 Sigmoidoscopy 1970 Pneumococcal Vaccine: 50+ Years (1 of 2 - PCV) 02/25/1987 COVID-19 Vaccine (4 - 2025-26 season) 2025 11/07/2021, 03/29/2021, 03/01/2021 Influenza Vaccine (#1) 2025 , 08/23/2023, 09/17/2022, Additional history exists Mammogram 08/18/2025 08/18/2024, 07/27, 08/08/2022, Additional history exists Dental Oral Exam 10/16/2025 04/14/2025, 08/24/2024 Dental Prophylaxis 10/16/2025 04/14/2025, 0 08/24/2024, 10/01/2023, Additional history exists SDOH Screening 01/26/2026 01/26/2025 Alcohol/Substance Use Screening 02/04/2026 02/04/2025 Depression Monitoring 02/10/2026 08/13/2025, 025 Diabetes: Hemoglobin A1C 05/07/2026 025, 02/02/2025, 08/11/2024, Additional history exists Dental X-Ray: Bitewings 05/08/2026 05/07/20 25, 08/24/2024, 10/01/2023 Disability Screening 07/23/2026 07/23/2025 Tobacco Screening 08/13/2026 08/13/2025 Dental X-Ray: Full Mouth 08/25/2027 08/24/2024, 04/26 [...] Procedure Name Priority Date/Time Associated Diagnosis Comments HIGH SENSITIVITY TROPONIN I Routine 08/04/2025 11:48 AM EDT COVID-19 ID NOW (CANO) Routine 08/04/2025 11:48 AM EDT URINALYSIS WITH REFLEX MICROSCOPIC Routine 08/04/2025 11:48 AM EDT INFLUENZA A B2 ID NOW (CANO) Routine 08/04/2025 11:48 AM EDT XR CHEST 1 VIEW Routine 08/04/2025 10:37 AM EDT SED RATE BY MODIFIED WESTERGREN Routine 08/04/2025 9:33 AM EDT HIGH SENSITIVITY TROPONIN I Routine [...] Routine 06/26/2025 10:26 AM EDT Sore throat POCT GLYCATED HEMOGLOBIN, TOTAL Routine 05/07/2025 12:15 PM EDT Prediabetes BITEWING - SINGLE RADIOGRAPHIC IMAGE Routine 05/07/2025 10:00 AM EDT PROPHYLAXIS - [...] Relevant to Health Maintenance Results * Influenza A B2 ID NOW (Cano) (08/04/2025 11:48 AM EDT) IDNOW SERIAL# [id number] [facility] Influenza A Negative Negative [facility] Influenza B2 Negative Negative [facility] Influenza A B2 Note See Note [facility] Comment:The Acno ID NOW In fluenza A B2 test is used for thequalitative detection of influenza A and B from patientswith signs and symptoms of respiratory infection.Negative results do not preclude influenza virus infectionand should not be used as the sole basis for diagnosis,treatment or other patient management decisions.There is a risk of false negative results due to thepresence of variants in the viral targets of the assay, lowlevels of virus in the specimen and co- infection withRespiratory Syncytial Virus. 08/04/2025 11:4 8 AM EDT 08/04/2025 12:03 PM EDT us Generic External Data Provider LAB MICROBIOLOGY - GENERAL ORDERABLES Final Result [facility] [address] [place] [phone] * COVID-19 ID NOW (CANO) (08/04/2025 11:48 AM EDT) IDNOW SERIAL# [id number] [facility] COVID-19 TEST Negative Negative [facility] COVID-19 NOTE See Note [facility] Comment: Results are for the identification of SARS-CoV2 RNA. TheSARS-CoV2 RNA is generally detectable in respiratory samplesduring the acute phase of infection. Positive results areindicative of the presence of SARS-CoV-2 RNA; clinicalcorrelation with patient history and other diagnosticinformation is necessary to determine patient infectionstatus. Positive results do not rule out bacterial infectionor co- infection with other viruses.Testing facilities within the [facility] and itsterritories are required to report all positive results tothe appropriate public health authorities.Negative results should be treated as presumptive and, ifinconsistent with clinical signs and symptoms or necessaryfor patient management, should be tested with differentauthorized or cleared molecular tests. Negative results donot preclude SARS-CoV2 RNA infection and should not be usedas the sole basis for patient management decisions. Negativeresults should be considered in the context of a patient'srecent exposures, history and the presence of clinical signsand symptoms consistent with COVID-19.This test has been authorized by the FDA under an EmergencyUse Authorization (EUA) for use by authorized laboratories.Testing performed on the Cano ID NOW utilizing NAAT. 08/04/2025 11:4 8 AM EDT 08/04/2025 12:03 PM EDT Generic External Data Provider LAB MOLECULAR JUNIE GNOSTICS ORDERABLES Final Result Performing Organization Address [facility] Co de Phone Number [facility] [address] [place] [phone] * High Sensitivity Troponin I (08/04/2025 11:48 AM EDT) Only the most recent of2 resultswithin the time period is included. TROPONIN I HIGH SENSITIVITY <2.7 <3.5 - 17.0 ng/L [facility] Comment:The Cano high sens itivity Troponin-I results should beused in conjunction with other diagnostic information suchas ECG, clinical observations and information, and patientsymptoms to aid in the diagnosis of GA. 08/04/2025 11:4 8 AM EDT 08/04/2025 12:03 PM EDT Generic External Data Provider LAB BLOOD ORDERAB LES Final Result Performing Organization Address [facility] de Phone Number [facility] [address] [place] [phone] * Urinalysis w/reflex microscopic (08/04/2025 11:48 AM EDT) Color Urine Yellow [facility] Appearance Urine Clear [facility] PH 5.5 5.0 - 9.0 [facility] Glucose Urine UA Negative Negative mg/dL [facility] Urine Blood Negative Negative [facility] Specific [place] - Urine 1.010 1.005 - 1.025 [facility] Urine Protein Negative Neg-Trace mg/dL [facility] Urine Ketones Negative Negative mg/dL [facility] Nitrite Urine Negative Negative [facility] Leukocyte Esterase Urine Negative Negative [facility] 08/04/2025 11:4 8 AM EDT 08/04/2025 12:03 PM EDT Narrative [facility] - 08/04/2025 12:08 PM EDT Urine, Clean Catch us Generic External Data Provider LAB URINE ORDERAB LES Final Result Performing Organization Address City/State/[facility] Co de Phone Number [facility] [address] [place] [phone] * XR Chest 1 View (08/04/2025 10:37 AM EDT) Only the most recent of2 resultswithin the time period is included. Anatomical Region Laterality Modality Chest Radiographic Zina ging 08/04/2025 10:3 7 AM EDT Narrative 08/04/2025 10:54 AM EDT [address] [address] XRay Report Signed Patient: Machelle Wooten MR#: [id number] : 1970 Acct:[id number] Age/Sex: 55 / F ADM Date: 08/04/25 Loc: .ED Attending Dr: Ordering Physician: Lilly Cueto PA-C Date of Service: 08/04/25 Procedure(s): XR chest 1V Accession Number(s): [id number] cc: Lilly Cueto PA-C; Brooklyn Jalloh Reason [...] 08/04/25 1051 DD/ 1037 TD/TT: 08/04/25 1045 Operations Research Group Manager: Procedure Note Josselyn, Image - 08/04/2025 [place] [address] XRay Report Signed Patient: Machelle WootenMR#: [id number] : 1970Acct:[id number] Age/Sex: 55 / FADM Date: 08/04/25 Loc: .ED Attending Dr: Ordering Physician: Lilly Cueto PA-C Date of Service: 08/04/25 Procedure(s): XR chest 1V Accession Number(s): [id number] cc: Lilly Cueto PA-C; Brooklyn Jalloh Reason [...] 08/04/25 1051 DD/ 1037 TD/TT: 08/04/25 1045 Operations Research Group Manager: [facility] External Provider IMG XR PROCEDURES Final Result * (ABNORMAL) CBC auto differential (08/04/2025 9:33 AM EDT) White Blood Count 15.7(H) 4.8 - 10.8 X10*3/uL [facility] Red Blood Count 4.46 4.20 - 5.50 X10*6/uL [facility] Hemoglobin 12.3 12.0 - 16.0 g/dl [facility] Hematocrit 36.4(L) 37.0 - 47.0 % [facility] Mean Corpuscular Volume 81.6 80.0 - 98.0 fL [facility] Mean Corpuscular Hemoglobin 27.6 27.0 - 33.0 pg [facility] Mean Corpuscular HGB Conc 33.8 31.0 - 35.0 g/dl [facility] Red Cell Distribution Width 14.3 11.0 - 16.0 % [facility] Platelet Count 323 160 - 400 X10*3/uL [facility] Mean Platelet Volume 9.9 9.4 - 12.3 fL [facility] Neutrophils Percent Auto 71.1 45 - 73 % [facility] Imm Gran Pct Auto 0.3 0.0 - 0.4 % [facility] Lymphocytes Percent Auto 19.6(L) 20 - 40 % [facility] Monocytes Percent Auto 7.8 2 - 11 % [facility] Eosinophils Percent Auto 1.0 0 - 4 % [facility] Basophils Percent Auto 0.2 0 - 2 % [facility] NRBC Pct Auto 0.0 0.0 - 0.2 /100WBC [facility] Neutrophils Absolute Auto 11.2(H) 2.0 - 8.3 x10*3/uL [facility] Imm Gran Abs Auto 0.05(H) 0.00 - 0.03 X10*3/uL [facility] Lymphocytes Absolute Auto 3.1 1.2 - 4.9 X10*3/uL [facility] Monocytes Absolute Auto 1.2 0.1 - 1.2 X10*3/uL [facility] Eosinophils Absolute Auto 0.2 0.0 - 0.4 X10*3/uL [facility] Basophils Absolute Auto 0.0 0.0 - 0.2 X10*3/uL [facility] NRBC Abs Auto 0.000 0.0 - 0.012 X10*3/uL [facility] 08/04/2025 9:33 AM EDT 08/04/2025 9:35 AM EDT Generic External Data Provider LAB BLOOD ORDERAB LES Final Result Performing Organization Address City/[facility]/ZIP Co de Phone Number [facility] [address] [place] [phone] * Sed Rate by Modified Westergren (08/04/2025 9:33 AM EDT) Erythrocyte Sedimentation Rate 18 0 - 20 MM/HR [facility] Comment:Patients with polycy themia and many hemoglobin abnormalitiesmay have depressed sed rates whereas patients with anemiamay have elevated sed rates. 08/04/2025 9:33 AM EDT 08/04/2025 1:17 PM EDT Generic External Data Provider LAB BLOOD ORDERAB LES Final Result Performing Organization Address [facility] Co de Phone Number [facility] [address] [place] [phone] * (ABNORMAL) Basic Metabolic Panel (08/04/2025 9:33 AM EDT) Sodium 141 135 - 145 mmol/L [facility] Potassium 4.0 3.3 - 5.1 mmol/L [facility] Chloride 106 96 - 108 mmol/L [facility] Carbon Dioxide 25 22 - 29 mmol/L [facility] Anion Gap 14 12 - 20 [facility] Urea Nitrogen (BUN) 13 9 - 16 mg/dL [facility] Creatinine, Serum 0.67 0.5 - 1.4 mg/dL [facility] Creatinine Clr Calc Pharmacy 100.3 [facility] Comment:Provided height and weight: 165.1 cm,86.001 kg.eGFR (calculated from the MDRD study equation) and eCrCl(calculated from the Cockcroft-Gault equation) are based ondifferent parameters and may not yield comparable results.If eCrCl result is absurd, please check patient'sheight/weight. Estimated Glomerular Filt Rate >60 [facility] Comment:Chronic Kidney Disea se: Estimated GFR < 60 mL/min/1.20c5Qccamp Kidney Disease: Estimated GFR < 15 mL/min/1.73m2 Glucose 123(H) 60 - 115 mg/dL [facility] Calcium 9.2 8.4 - 10.2 mg/dL [facility] 08/04/2025 9:33 AM EDT 08/04/2025 9:35 AM EDT us Generic External Data Provider LAB BLOOD ORDERAB LES Final Result Performing Organization Address City/State/[facility] Co de Phone Number [facility] [address] [place] [phone] [phone] * CTA Chest PE Protocal (07/22/2025 10:06 AM EDT) Anatomical Region Laterality Modality Body, Chest Computed Tomogra phy 07/22/2025 10:0 6 AM EDT Narrative 07/22/2025 10:51 AM EDT [place] [address] CT Scan Report Signed Patient: Machelle Wooten MR#: [id number] : 1970 Acct:[id number] Age/Sex: 55 / F ADM Date: 07/22/25 Loc: HO.ED Attending Dr: Ordering Physician: Kaylie Choi Date of Service: 07/22/25 Procedure(s): CT angio chest PE protocol Accession Number(s): [id number] cc: Kaylie Choi; Brooklyn Jalloh Report Number: [id number]: Total DLP = 378.00 mGy-cm EXAMINATION: CT [...] 07/22/25 1048 DD/ 1006 TD/TT: 07/22/25 1029 Operations Research Group Manager: Procedure Note Donotuseinterpreter, Image - 07/22/[address] [address] [address] Scan Report Signed Patient: Machelle WootenMR#: [id number] : 1970Acct:[id number] Age/Sex: 55 / FADM Date: 07/22/25 Loc: HO.ED Attending Dr: Ordering Physician: Kaylie Choi Date of Service: 07/22/25 Procedure(s): CT angio chest PE protocol Accession Number(s): [id number] cc: Kaylie Choi; Brooklyn Jalloh Report Number: [id number]: Total DLP = 378.00 mGy-cm EXAMINATION: CT [...] 07/22/25 1048 DD/ 1006 TD/TT: 07/22/25 1029 Operations Research Group Manager: [facility] External Provider IMG CT PROCEDURES Final Result * SARS-CoV-2 RNA, Influenza A/B, and RSV RNA, Ql NAAT (07/22/2025 9:11 AM EDT) Pathologist [facility] Influenza A PCR NEGATIVE Negative [facility] Influenza B PCR NEGATIVE Negative [facility] Resp Syncy Virus RNA Qual PCR NEGATIVE Negative [facility] SARS COV2 PCR NEGATIVE Negative [facility] Comment:All test results mus t be [...] use by authorized laboratories.Testing performed on the ViFluxXpert utilizingreal-time RT-PCR.All SARS CoV2 and positive influenza A/B results arereported to [facility]. 07/22/2025 9:11 AM EDT 07/22/2025 9:15 AM EDT us Generic External Data Provider LAB MICROBIOLOGY - GENERAL ORDERABLES Final Result [facility] [address] [place] [phone] * (ABNORMAL) CBC (07/22/2025 9:11 AM EDT) White Blood Count 11.3(H) 4.8 - 10.8 X10*3/uL [facility] Red Blood Count 4.80 4.20 - 5.50 X10*6/uL [facility] Hemoglobin 13.0 12.0 - 16.0 g/dl [facility] Hematocrit 40.5 37.0 - 47.0 % [facility] Mean Corpuscular Volume 84.4 80.0 - 98.0 fL [facility] Mean Corpuscular Hemoglobin 27.1 27.0 - 33.0 pg [facility] Mean Corpuscular HGB Conc 32.1 31.0 - 35.0 g/dl [facility] Red Cell Distribution Width 14.4 11.0 - 16.0 % [facility] Platelet Count 327 160 - 400 X10*3/uL [facility] Mean Platelet Volume 10.3 9.4 - 12.3 fL [facility] NRBC Pct Auto 0.0 0.0 - 0.2 /100WBC [facility] NRBC Abs Auto 0.000 0.0 - 0.012 X10*3/uL [facility] 07/22/2025 9:11 AM EDT 07/22/2025 9:15 AM EDT Generic External Data Provider LAB BLOOD ORDERAB LES Final Result Performing Organization Address [facility]/ZIP Co de Phone Number [facility] [address] [place] [phone] * Magnesium (07/22/2025 9:11 AM EDT) Magnesium 1.9 1.6 - 2.6 mg/dL [facility] 07/22/2025 9:11 AM EDT 07/22/2025 9:15 AM EDT Generic External Data Provider LAB BLOOD ORDERAB LES Final Result Performing Organization Address [facility]/ZIP Co de Phone Number [facility] [address] [place] [phone] * (ABNORMAL) Comprehensive Metabolic Panel (07/22/2025 9:11 AM EDT) Sodium 141 135 - 145 mmol/L [facility] Potassium 3.7 3.3 - 5.1 mmol/L [facility] Chloride 106 96 - 108 mmol/L [facility] Carbon Dioxide 26 22 - 29 mmol/L [facility] Anion Gap 13 12 - 20 [facility] Urea Nitrogen (BUN) 16 9 - 16 mg/dL [facility] Creatinine, Serum 0.79 0.5 - 1.4 mg/dL [facility] Creatinine Clr Calc Pharmacy 86.6 [facility] Comment:Provided height and weight: 165.1 cm,89.1 kg.eGFR (calculated from the MDRD study equation) and eCrCl(calculated from the Cockcroft-Gault equation) are based ondifferent parameters and may not yield comparable results.If eCrCl result is absurd, please check patient'sheight/weight. Estimated Glomerular Filt Rate >60 [facility] Comment:Chronic Kidney Disea se: Estimated GFR < 60 mL/min/1.36h4Elseqf Kidney Disease: Estimated GFR < 15 mL/min/1.73m2 Glucose 104 60 - 115 mg/dL [facility] Calcium 9.3 8.4 - 10.2 mg/dL [facility] Bilirubin, Total 0.5 0.0 - 1.0 mg/dL [facility] Aspartate Amino Transferase 27 5 - 31 U/L [facility] Alanine Aminotransferase 33(H) 0 - 31 U/L [facility] Total Protein 7.3 6.5 - 8.0 g/dL [facility] Albumin Level 4.4 3.5 - 5.0 g/dL [facility] Alkaline Phosphatase 166(H) 39 - 117 U/L [facility] 07/22/2025 9:11 AM EDT 07/22/2025 9:15 AM EDT Generic External Data Provider LAB BLOOD ORDERAB LES Final Result [facility] [address] [place] [phone] * Influenza B (ID NOW Rapid Molecular) (07/19/2025 1:59 PM EDT) Only the most recent of2 resultswithin the time period is included. Influenza B Negative Negative, Indeterminate [facility] Swab 07/19/2025 1:59 PM EDT us Zhane Gandhi MD POINT OF CARE TEST ENTER/EDIT ORDERABLES Final Result Performing Organization Address [facility]/ZIP Co de Phone Number [facility] [address] [place] [phone] * Influenza A (ID NOW Rapid Molecular) (07/19/2025 1:59 PM EDT) Only the most recent of2 resultswithin the time period is included. Influenza A Negative Negative, Indeterminate [facility] Swab 07/19/2025 1:59 PM EDT us Zhane Gandhi MD POINT OF CARE TEST ENTER/EDIT ORDERABLES Final Result Performing Organization Address [facility] Co de Phone Number [facility] [address] [place] [phone] * POCT Rapid COVID Ag (07/19/2025 1:59 PM EDT) Rapid COVID Ag Negative [facility] Swab 07/19/2025 1:59 PM EDT us Zhane Gandhi MD POINT OF CARE TEST ENTER/EDIT ORDERABLES Final Result Performing Organization Address City/[facility] Co de Phone Number [facility] [address] [place] [phone] * XR Chest 2 Views (07/19/2025 1:29 PM EDT) Anatomical Region Laterality Modality Chest Radiographic Zina ging 07/19/2025 1:29 PM EDT Narrative 07/19/2025 2:36 PM EDT [facility] [address] [place] [address] XRay Report Signed Patient: Machelle Wooten MR#: [id number] : 1970 Acct:[id number] Age/Sex: 55 / F ADM Date: 07/19/25 [facility]: Zhane Gandhi MD Ordering Physician: Zhane Gandhi MD Date of Service: 07/19/25 Procedure(s): XR chest 2V Accession Number(s): [id number] cc: Zhane Gandhi MD EXAMINATION: XR CHEST [...] 07/19/25 1433 DD/ 1329 TD/TT: 07/19/25 1400 Operations Research Group Manager: Procedure Note Donotuseinterpreter, Image - 07/19/[address] [address] XRay Report Signed Patient: Alice Wooten#: [id number] : 1970Acct:[id number] Age/Sex: 55 / FADM Date: 07/19/25 Loc: [facility] Attending Dr: Zhane Gandhi MD Ordering Physician: Zhane Gandhi MD Date of Service: 07/19/25 Procedure(s): XR chest 2V Accession Number(s): [id number] cc: Zhane Gandhi MD EXAMINATION: XR CHEST [...] 07/19/25 1433 DD/ 1329 TD/TT: 07/19/25 1400 Operations Research Group Manager: us Zhane Gandhi MD IMG XR PROCEDURES Final Resul t * Culture, Urine, Routine (07/13/2025 1:40 PM EDT) Urine Urine specimen obtained by clean catch procedure / Unknown 07/13/2025 1:40 PM EDT 07/13/2025 4:41 PM EDT Comment:UACC Narrative [facility] - 07/15/2025 8:46 AM EDT Urine Culture Report Result Urine Culture < 10,000 cfu/ml Specimen Source: Urine clean catch us Lida Mackenzie MD LAB MICROBIOLOGY - NERAL ORDERABLES Final Result [facility] [address] [place] [address] [phone] * POCT urinalysis dipstick manually resulted (07/13/2025 [...] CANO ID NOW (06/26/2025 10:41 AM EDT) [facility] Coronavirus Antigen PCR Negative Negative, Indeterminate, None Detected, Invalid, Specimen unsatisfactory for evaluation, Weakly Positive, 2+ QC Media Lot # [id number] Lot# Expiration Date Swab 06/26/2025 10:4 1 AM EDT Brooklyn Jalloh MD POINT OF CARE TEST ENTER/EDIT ORDERABLES Final Result * POCT Rapid Strep A CANO ID NOW (06/26/2025 10:26 AM EDT) [facility] Rapid Strep A Screen Negative Negative, None Detected QC Media Lot # [id number] Lot# Expiration Date Swab 06/26/2025 10:2 6 AM EDT Brooklyn Jalloh MD POINT OF CARE TEST ENTER/EDIT ORDERABLES Final Result * (ABNORMAL) POCT HGB A1C (05/07/2025 12:15 PM EDT) [facility] Hemoglobin A1C 6.1(A) 4.0 - 6.0 % QC Media Lot # [id number] Blood 05/07/2025 12:1 5 PM EDT Result [facility] Brooklyn Jalloh MD POINT OF CARE TEST ENTER/EDIT ORDERABLES Final Result * Hepatitis C Antibody with Reflex to HCV, RNA, Quantitative, Real-Time PCR (04/02/2025 11:49 AM EDT) [facility] Hepatitis C Antibody Nonreactive Nonreactive [facility] Comment:Antibodies to HCV no t detected; does not exclude early acuteHCV infection. Blood Venous blood specimen / Unknown 04/02/2025 11:49 AM EDT 04/02/2025 1:17 PM EDT us Brooklyn Jalloh MD LAB BLOOD ORDERABLES Final Res ult [facility] [address] [place] [phone] * HIV-1/2 Antigen and Antibodies, Fourth Generation, with Reflexes (04/02/2025 11:49 AM EDT) HIV AB/AG Nonreactive Nonreactive [facility] Comment:HIV-1 p24 Ag and/or HIV-1/HIV-2 Ab not detected.A test result that is nonreactive does not exclude thepossibility of exposure to or infection with HIV-1 and/orHIV-2. Nonreactive results in this assay for individualswith prior exposure to HIV-1 and/or HIV-2 may be due toantigen and antibody levels that are below the limit ofdetection of this assay.The [employer] HIV Ag/Ab Combo assay result andsupplemental assay results should be interpreted inconjunction with the patient's clinical presentation,history and other laboratory results. If the results areinconsistent with clinical evidence, additional testing issuggested to confirm the result. Blood Venous blood specimen / Unknown 04/02/2025 11:49 AM EDT 04/02/2025 1:17 PM EDT us Brooklyn Jalloh MD LAB BLOOD ORDERABLES Final Res ult [facility] [address] [place] [phone] * Pap Smear (03/30/2025 12:07 PM EDT) Swab 03/30/2025 12:0 7 PM EDT 03/31/2025 6:00 AM EDT Narrative [facility] - 04/02/2025 12:35 PM EDT ----- ------- Name: Machelle Wooten Age/Sex: 55/F : 1970 Unit#: [id number] Attend Dr: KEILY FOREMAN CNM Re03/30/25 Status: [facility] REF Location: [facility] Disch: ----- ------- SPEC : [id number] RECD: 03/31/25 STATUS: ERNESTO HERNANDEZ NUM: [id number] KRYSTA: 03/30/25-[address] [facility] [address]: KEILY FOREMAN ENTERED: 03/31/25 SP TYPE: Pap Smr OTHR DR: ORDERED: Pap Smear Interpretation Satisfactory for evaluation. Negative for intraepithelial lesion or malignancy. No endocervical cells seen. HPV High Risk: Negative HPV Genotyping 16: Negative HPV Genotyping 18: Negative Clinical Information LMP:Unknown date Previous PAP test:2018 Material Received ThinPrep-Cervical ----- ------- Signed (signature on file) YAMILETH Torres ([facility]) 04/02/25 1235 ----- ------- END OF REPORT Keily Foreman [facility] LAB CYTOLOGY ORDERABLES F inal Result Performing Organization Address [facility]/ZIP Co de Phone Number [facility] [address] [place] [phone] * HPV DNA, Low/High Risk (03/30/2025 12:00 AM EDT) HPV High Risk Negative Negative [facility] HPV Genotype 16 Negative Negative [facility] HPV Genotype 18 Negative Negative [facility] Comment:HPV testing performe d at [facility] (CLIA#[id number]), [address] [place] [address].Testing for HPV was performed using the Shahida [...] 03/31/2025 6:0 0 AM EDT Keily Susannahketanaurora [facility] LAB BLOOD ORDERABLES Julianne l Result Performing Organization Address [facility]/ZIP Co de Phone Number [facility] [address] [place] [phone] * BI US Breast Limited Right (08/18/2024) Anatomical Region Laterality Modality Breast Right Ultrasound Lilian Holcomb AUTO PHONE INSTALLER IMG US PROCEDURES Final Result * (ABNORMAL) [...] LDL-C. Mitch SS et al. ARACELI. 2013;310(19): 8275-6113 (http://education.[employer]/faq/FHZ909) Non-HDL Cholesterol 117 <130 mg/dL (calc) CONVERTED [...] Most Recently Relevant to Health Maintenance Insurance [facility] ONE CARE < 65 DENTAL - [facility] Care Teams Power Generating Plant Operator Relationship Specialty Start Date End Date Brooklyn Jalloh MD [address] [place] [phone] PCP - General Family Medicine 07/17/21
== END 2025-08-31 15:01 | disposition home or self-care (01) ==
LOC: HO.HCS 14:18
PROVIDERS: PCP General Practice; Visit Provider Internal Medicine
DX: R07.2 Precordial pain (principal)
CPT/HCPCS: 93010; 99214

== ENCOUNTER → 2025-08-31 14:17 | Outpatient (BNVA) | payer OTHER, SELFPAY | PROVIDERS: PCP General Practice; Visit Provider Internal Medicine | DX: R07.2 Precordial pain (principal) | CPT/HCPCS: 93005; 99212 ==

== ENCOUNTER 2025-09-02 10:53 | Outpatient (REF) | payer OTHER, SELFPAY ==
--- NOTE | ~2025-09-02 | XR_ITS ---
EXAMINATION: XR CHEST CLINICAL INFORMATION: worsening cough and SOB COMPARISON: X-ray 08/04/2025 TECHNIQUE: 2 views of the chest were obtained. FINDINGS: The cardiomediastinal silhouette is within normal limits. The lungs are well expanded. Mild bronchial wall thickening. There is no focal consolidation, edema, or effusion. No pneumothorax. No acute osseous abnormality. XR/XR chest 2V IMPRESSION: Mild bronchial wall thickening can be seen with small airway disease. Electronically signed by: Remington Nguyen MD 09/02/2025 12:22 PM EDT
== END 2025-09-02 10:54 | disposition home or self-care (01) ==
LOC: HO.HHCX 10:53
PROVIDERS: Visit Provider Family Medicine
DX: J45.41 Moderate persistent asthma with (acute) exacerbation (principal)
CPT/HCPCS: 71046

== ENCOUNTER → 2025-09-02 10:54 | Outpatient (BNV) | payer OTHER, SELFPAY | PROVIDERS: Visit Provider Radiology Diagnostic Ultrasound | DX: R05.9 Cough, unspecified (principal); R06.02 Shortness of breath | CPT/HCPCS: 71046 ==

== ENCOUNTER 2025-09-20 12:59 | Outpatient (REF) | payer OTHER, SELFPAY ==
[2025-09-20 14:40] LABS: Bacterial Vaginosis PCR NEGATIVE (Negative); Candida Group PCR DETECTED (Not Detect); Candida glab krusei PCR NOT DETECTED (Not Detect); Trichomonas vaginalis PCR NOT DETECTED (Not Detect)
[2025-09-20 15:11] LABS: CT PCR NOT DETECTED (Not Detect.); NG PCR NOT DETECTED (Not Detect.)
--- OUTSIDE RECORDS SUMMARY | 2025-09-20 16:28 | XMS_ITS | Clinical Summary ---
Author Organization 175 [facility] Address [address] [place] [address] Phone Care Team Providers Care Primer Powder Blender Wet Name Role Phone Brooklyn Jalloh MD Primary Care Provider [phone] Allergies Active Allergy Reactions Criticality Noted Date [...] 10:45 AM EST Office Visit Orthopedic Surgery [facility] [address] [facility] [address] [place] [address] Scot Durant DPM [address] [place] [address] Health Maintenance Due Date Last Done Comments Breast Cancer Screening 1968 Colorectal Cancer Screening: Colonoscopy 1970 Pneumococcal Vaccine: 50+ Years (1 of 2 - PCV) 02/25/1987 Cervical Cancer Screening: Pap Smear 02/25/1989 RSV Immunization Adult Patients (1 - Risk 50-74 years 1-dose series) 02/25/2018 Medicare Annual Wellness Visit 12/20/2023 Social Influencers [...] Results * Annual BMP Blood Test (08/31/2024) Annual BMP Blood Test abstracted [facility] Provider HEALTH MAINTENANCE Final Result * HIV Screening (08/18/2024) [facility] HIV Screening abstracted [facility] Provider HEALTH MAINTENANCE Final Result * Hepatitis C Screening (08/18/2024) Pathologist [facility] Hepatitis C Screening abstracted [facility] Provider HEALTH MAINTENANCE Final Result * Lipid panel (02/21/2021) Pathologist [facility] LDL/HDL Ratio 0 Comment:abstracted, no inter pretation Triglycerides 0 mg/dL Comment:abstracted, no inter pretation Cholesterol 0 mg/dL Comment:abstracted, no inter pretation HDL 0 mg/dL Comment:abstracted, no inter pretation LDL Cholesterol 0 mg/dL Comment:abstracted, no inter pretation Blood Venous blood specimen / Unknown [facility] Provider LAB BLOOD ORDERABLES Julianne l Result from Last 3 Months or Most Recently Relevant to Health Maintenance Insurance [facility] MEDICARE Member Subscriber Plan / Payer (Ef fective 2018-Present) Name:MACHELLE CUNNINGHAM Relation to Subscriber:Self Name:Marquise Cunninghammen M Payer ID:[id number] Group ID:[id number] Type:Not on file Address: [place] [address] [address] Care Teams Primer Powder Blender Wet Relationship Specialty Start Date End Date Brooklyn Jalloh MD [address] [place] [address] PCP - General 09/12/22
--- OUTSIDE RECORDS SUMMARY | 2025-09-20 16:28 | XMS_ITS | Data Portability ---
Author Organization [place] - [facility], Allergy Address [address] [address] Assessment Encounter Date Assessment Date Assessment LastModified [...] [email or web address] Not available 12/25/2024 12:24:16 01/06/2025 01/06/2025 Recommendations: Follow up with referring provider. [email or web address] Not available 01/06/2025 09:25:42 06/17/2025 06/17/2025 55-year-old female with chronic otic pruritus presents for reevaluation. She uses topical fluocinolone 2-3 times weekly, and reports continued symptomatic benefit. She reports stable hearing. Otologic exam demonstrates TMs and EACs are normal to inspection. Audiometric testing updated 12/2024 demonstrating stable HF SNHL. Recommend continuing topical fluocinolone as needed for otic pruritus. Recommend follow-up in 1 year for reevaluation and medication refill. [email or web address] Not available 06/17/2025 13:10:23 Plan of Treatment Reminders Order Date Submit Date Provider Last Modified By Organization Details Last Modified Time Details Appointments Establish ed 15 2025 11:00A M LIOR KHANNA PA-C Not available Not available Not available Lab None recorded. Referral None recorded. Procedures None recorded. Surgeries None recorded. Imaging None recorded. Medication Orders fluocinol one acetonide oil 0.01 % ear drops 2024 025 [facility], [address] [place], [place], [phone], 09/10/2025 14:51:12 fluocinol one acetonide oil 0.01 % ear drops 2024 025 [facility], [address] [place], [place], [phone], 05/05/2025 09:22:39 Patient TargetsNo targets recorded. Patient InstructionsNo instructions recorded. Reason for Referral None Reported. Results Created Date Observation Date Name Description Value Unit Range Abnormal Flag Note LastModifiedBy Organization Detail LastModifiedTime 01/06/20 audio gram No observ ation record ed. BARCODE Not Available 2024 10:40:01 Result Notes None recorded. Problems Name Problem SNOMED Code Status Onset Date Resolution Date Notes Provider Name and Address Organization Details Recorded Time Bilateral tinnitus 09634801914 02 Active 2022 Tinnitus, bilateral ; Note: Date Diagnosed : 04/18/2023 4:24 PM (H93.13) Not Available [facility] 4 03:26:19 Sensorine ural hearing loss of bilateral ears 234885097 Active 2022 Sensorine ural hearing loss, bilateral ; Note: Date Diagnosed : 04/18/2023 2:04 PM (H90.3) Not Available [facility] 4 03:26:18 Itching of skin 380521572 Active 2022 Other pruritus; Note: Date Diagnosed : 04/18/2023 4:24 PM (L29.8) Not Available [facility] 4 03:26:18 Problem Notes None recorded. Procedures Surgical History Date Name Laterality Status Provider Name and Address Organization Details Recorded Time 01/06/2025 Air & Speech Audio with Tymps - 51378, 00252 & 88143 completed NAJMA DENIS, [facility] 100 [facility],[address], [address], [facility] - [facility] 01/06/2025 09:33:21 Imaging Results None recorded. Procedure Notes None recorded. Medical Equipment None Reported. Allergies Allergen ID Allergen Name Allergen Category Reaction Reaction Severity Criticality Documentation Date Start Date Code Code System Note Provider Name and Address Organization Details Recorded Time [id number] Fish (substanc e) food,medi cation Not available Not available Not available 04/07/2024 02956 1005 SNOMED React ion: Hives , Rash; Not Available [facility] 4 01:27:00 Medications Name Sig Start Date Stop Date Status Note LastModified by Organization Details LastModified Time multivitam in tablet TAKE 1 TABLET BY MOUTH EVERY DAY IN THE MORNING active Not Available Not Available No t Available cyclobenza ana rosa 10 mg tablet TAKE 1 TABLET BY MOUTH THREE TIMES A DAY NEEDED FOR MUSCLE SPASM active Not Available Not Available No t Available amoxicilli n 500 mg capsule TAKE 1 CAPSULE BY MOUTH EVERY 8 HOURS FOR 7 DAYS active Not Available Not Available No t Available fluconazol e 100 mg tablet TAKE 2 TABLETS BY MOUTH ON DAY 1 ONLY, THEN TAKE 1 TABLET DAILY THEREAFTE R active Not Available Not Available No t Available atorvastat in 40 mg tablet TAKE 1 TABLET BY MOUTH EVERY DAY active Not Available Not Available No t Available metformin 500 mg tablet TAKE 1 TABLET BY MOUTH EVERY DAY WITH EVENING MEAL. DO NOT BREAK, CRUSH, DISSOLVE OR CHEW active Not Available Not Available No t Available albuterol sulfate 2.5 mg/3 mL (0.083 %) solution for nebulizati on INHALE 1 AMPULE USING A NEBULIZER EVERY 4 HOURS NEEDED FOR WHEEZING OR SHORTNESS OF BREATH active Not Available Not Available No t Available trazodone 50 mg tablet TAKE 1 TABLET BY MOUTH AT BEDTIME NEEDED active Not Available Not Available No t Available azithromyc in 250 mg tablet TAKE 2 TABLETS BY MOUTH TODAY, THEN TAKE 1 TABLET DAILY FOR 4 DAYS DIRECTED active Not Available Not Available No t Available ibuprofen 800 mg tablet active Medicatio n ID: [id number] Br and Name: ibuprofen Send Method: E-Prescri bed Subs Allowed: subs OK Medica tionGener icName: ibuprofen Not Available Not Available Not Available fluconazol e 150 mg tablet TAKE 1 TABLET BY MOUTH FOR 1 DOSE active Not Available Not Available No t Available senna 8.6 mg tablet active Medicatio n ID: [id number] Br and Name: senna Sen d Method: E-Prescri bed Subs Allowed: subs OK Medica tionGener icName: senna Not Available Not Available Not Available sucralfate 1 gram tablet DISSOLVE 1 TABLET IN CAPFUL OF WATER AND SWALLOW TWICE DAILY active Not Available Not Available No t Available prednisone 20 mg tablet TAKE 2 TABLETS (40 MG) BY MOUTH ONCE PER DAY FOR 5 DAYS. active Not Available Not Available No t [...] layed release TAKE 1 CAPSULE BY MOUTH EVERY DAY NEEDED FOR HEARTBURN active Not Available Not Available No t Available lisinopril 5 mg tablet TAKE 1 TABLET BY MOUTH EVERY DAY active Not Available Not Available No t Available gabapentin 100 mg capsule TAKE 1 CAPSULE BY MOUTH EVERY DAY active Not Available Not Available No t Available ibuprofen 600 mg tablet TAKE 1 TABLET BY MOUTH EVERY 8 HOURS NEEDED FOR MILD PAIN FOR UP TO 10 DAYS active Not Available Not Available No t Available estradiol 0.01% (0.1 mg/gram) vaginal cream APPLY 1 GRAM VAGINALLY AT BEDTIME FOR 14 DAYS, THEN 1 GRAM VAGINALLY TWICE A WEEK THEREAFTE R active Not Available Not Available No t Available albuterol sulfate HFA 90 mcg/actuat ion aerosol inhaler INHALE [...] mg capsule TAKE 2 CAPSULES BY MOUTH ONCE DAILY IN THE MORNING active Not [...] Not Available Not Available No t Available Tussin Cough (DM only) 15 mg capsule TAKE 1 CAPSULE BY MOUTH IF NEEDED IN THE MORNING AND AT BEDTIME (COUGH/PH LEGM). active Not Available Not Available No t Available fluocinolo ne acetonide oil 0.01 % ear drops PLACE 3 DROPS INTO THE AFFECTED EAR(S) NEEDED FOR ITCHING active Not Available Not Available No t Available cholecalci ferol (vitamin D3) 25 mcg (1,000 unit) tablet TAKE 1 TABLET BY MOUTH EVERY DAY active Not Available Not Available No t Available FreeStyle Lite Strips USE TO TEST BLOOD SUGAR ONCE DAILY DIRECTED active Not Available Not Available No t Available diclofenac 1 % topical gel APPLY 2 GRAMS TO AFFECTED AREA(S) UP TO FOUR TIMES DAILY active Not Available Not Available No t Available Eye Itch Relief 0.025 % (0.035 %) drops INSTILL 1 DROP INTO THE AFFECTED EYE(S) TWICE DAILY IN THE MORNING AND IN THE EVENING active Not Available Not Available No t [...] Not Available Not Available No t Available TRUEplus Lancets 33 gauge USE TO TEST BLOOD SUGAR ONCE DAILY active Not Available Not Available No t Available Breo Ellipta 200 mcg-25 mcg/dose powder for inhalation INHALE 1 PUFF BY MOUTH EVERY DAY RINSE MOUTH AFTER USING. active Not Available Not Available No t [...] Updated DateTime 12/25/2024 165.1 cm 25.8 kg/m2 47850.82 g [facility] 12/25/2024 11:38:16 Date Recorded Body height Body mass index (BMI) Body weight Provider Name and Address Organization Details Last Updated DateTime 06/17/2025 165.1 cm 25.8 kg/m2 88799.82 g [facility] 06/17/2025 11:25:03 Social History None recorded. Functional Status None recorded. Mental Status None recorded. Family History Nothing Reported. Medical History No medical history recorded. Gynecological HistoryNo gynecological history recorded. Obstetrics History GPAL:G 0 P 0 0 0 0 Past Encounters Encounter ID Performer Location Encounter Start Date Encounter Closed Date Diagnosis/Indication Diagnosis SNOMED-CT Code Diagnosis ICD10 Code Diagnosis IMO Codes Diagnosis Note [id number] IMMANUEL CARCAMO PA-C [facility] [address] [address] 12/25/2024 11:28:54 12/25/2024 11:54:46 Itching of skin 613932038 L29.89 Sensorineu ral hearing loss of bilateral ears 464060178 H90.3 Bilateral tinnitus 66456 37751 102 H93.13 [id number] PATRIZIA FERREIRA [facility] [address] [address] 01/06/2025 09:20:17 01/06/2025 09:38:10 Sensorineural hearing loss of bilateral ears 444362724 H90.3 Audiologic al evaluation results: Normal sloping to mild sensorineu ral hearing loss with excellent word recognitio n, bilaterall y. Tympanomet ry:Right Ear:Type ALeft Ear:Type A [id number] LIOR KHANNA PA-C [facility] [address] [address] 06/17/2025 11:04:14 06/17/2025 11:41:18 Itching of skin 742926994 L29.89 Sensorineu ral hearing loss of bilateral ears 942645858 H90.3 Health Concerns Section Related Observation LastModified by Organization Detai ls LastModified Time None Recorded Concern Status LastModified by Organization Details LastModified Time None Recorded Advance Directives Directive None Recorded Payers Insurance Date Sequence Insurance Name Policy Number Policy Gordon Covered Member ID Gordon Member ID Guarantor Name 03/02/2025 [address] [facility] [place]IC[place] RE[place]AC[place]/ADV ANTAGE - HMO) Machelle Barroso [id number] Machelle Barroso 08/16/[address] [facility] - DOS ON OR AFTER 2023 - [employer] (MEDICARE REPLACEMENT/ADV ANTAGE - HMO) Machelle Barroso [id number] Machelle Barroso Notes Date Note Type Note Provider Name and Address Organization Details Recorded Time 12/25/2024 text/html ROS as noted in the HPI 54 year old female with history of seborrheic dermatitis presents for [...] ears get itchier when she is anxious. Immanuel nguyen [place] - [facility] 12/25/2024 12:24:29 01/06/2025 text/html Audiological Evaluation HPIReported by PatientHearing LossFor hearing loss perceived, patient reportsgradual onset. PATRIZIA FERREIRA 100 [facility],[address], [address], [facility] 01/06/2025 09:35:45 06/17/2025 text/html ROS as noted in the HPI 55-year-old female with chronic otic pruritus presents for reevaluation. She uses topical fluocinolone 2-3 times weekly, and reports continued symptomatic benefit. She reports stable hearing. Occasional sensitivity to sound with loud noises. History of headache and migraine managed by her primary care provider. Audiometric testing updated 12/2024 demonstrating stable HF SNHL JAIMEE SNOW MD 100 [facility] [address], [place], [address], [facility] 06/18/2025 14:16:14 OBGyn Episode No OBEpisode recorded.
== END 2025-09-20 13:00 | disposition home or self-care (01) ==
LOC: HO.LNP 12:59
PROVIDERS: Visit Provider Nurse Practitioner Family
DX: N89.8 Other specified noninflammatory disorders of vagina (principal); Z20.2 Contact with and (suspected) exposure to infections with a predominantly sexual mode of transmission
CPT/HCPCS: 81515; 87086; 87491; 87591

== ENCOUNTER 2025-09-24 10:02 | Outpatient (AMB) | payer OTHER, SELFPAY ==
--- OUTSIDE RECORDS SUMMARY | 2025-09-20 09:40 | XMS_ITS | Encounter Summary ---
Author Organization [employer] Address [address] [place] [address] Care Team Providers Care Aeronautical Research Engineer Name Role Phone Brooklyn Jalloh MD Primary Care Provider [phone] Reason for Visit * Reason Comments Vaginal Itching Encounter Details Date Type Department Care Team ([facility] st Contact Info) Description 09/20/2025 9:40 AM EDT Office Visit [facility] [address] [place] [address] Genna Irizarry FNP [address] [place] [address] Vaginal discharge (Primary Dx); Vaginal itching; Vaginal candidiasis Social History Tobacco Use Types Packs/Day Years [...] Sign Reading Time Taken Comments Blood Pressure 129/86 09/20/2025 9:25 AM EDT Pulse 68 09/20/2025 9:25 AM EDT Temperature 36.4 C (97.5 F) 09/20/2025 9:25 AM EDT Respiratory Rate 19 09/20/2025 9:25 AM EDT Oxygen Saturation - - Inhaled Oxygen Concentration - - Weight 89.5 kg (197 lb 6.4 oz) 09/20/2025 9:25 A M EDT Height 165.1 cm (5' 5 ) 09/20/2025 9:25 AM EDT Body Mass Index 32.85 09/20/2025 9:25 AM EDT documented in this encounter Progress Notes * SALVADOR Lorenz - 09/20/2025 9:40 AM EDT SUBJECTIVE Machelle Barroso is a 55 y.o. 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 HENT: Negative for sore throat. Respiratory: Negative for cough, chest tightness, shortness of breath and wheezing. Cardiovascular: Negative for chest pain and palpitations. Genitourinary: Positive for vaginal discharge. Negative for flank pain, frequency and pelvic pain. Vaginal itch Allergies[1] OBJECTIVE Vitals: 09/20/25 0925 BP: 129/86 BP Location: Left arm Patient Position: Sitting BP Cuff Size: Adult Pulse: 68 Resp: 19 Temp: 97.5 ??F (36.4 ??C) TempSrc: Temporal Weight: 197 lb 6.4 oz (89.5 kg) Height: 5' 5 (1.651 m) Result POCT Urinalysis Component Ref Range & Units (hover) 09:43 (09/20/25) Color, UA Yellow Clarity, UA Clear Glucose, UA Negative Bilirubin, UA Few 15 Comment: Small Ketones, UA Positive Comment: Trace Spec Grav, UA 1.030 Blood, UA Negative pH, UA 5.5 Protein, UA Trace Comment: 30 mg/dL Urobilinogen, UA 0.2 Leukocytes, UA Negative Nitrite, UA Negative Appearance, UA clear Bacterial Vaginosis Component Ref Range & Units (hover) TRICHOMONAS VAGINALIS DETECTION BY PCR NOT DETECTED BACTERIAL VAGINOSIS DETECTION BY PCR NEGATIVE SRIDEVI GROUP DETECTION BY PCR DETECTED Abnormal Sridevi glab krusei PCR NOT DETECTED Physical Exam Vitals reviewed. Constitutional: Appearance: Normal appearance. HENT: Head: Atraumatic. Cardiovascular: Rate and Rhythm: Normal rate and regular rhythm. Pulses: Normal pulses. Heart sounds: Normal heart sounds. No murmur heard. Pulmonary: Effort: Pulmonary effort is normal. Breath sounds: Normal breath sounds. No wheezing. Neurological: Mental Status: She is alert and oriented to person, place, and time. Psychiatric: Mood and Affect: Mood normal. Behavior: Behavior normal. Assessment/Plan Problem List Items Addressed This Visit Vaginal discharge - Primary Vaginal candidiasis Vaginal itching - Vaginal pruritus and burning likely due to Sridevi infection. Differential diagnosis includes bacterial vaginosis and urinary tract infection; urinalysis negative, urine culture pending. - Positive for Sridevi - Prescribed oral antifungal tablet for suspected Sridevi infection and clotrimazole (Lotrimin) 1 %cream for the itchy and excoriated labia majora - Instructed to return if symptoms worsen, or if fever or vomiting develop. Relevant Orders Chlamydia/N. Gonorrhoeae RNA, TMA, Vaginal (Completed) Bacterial Vaginosis (Completed) Culture, Urine, Routine Relevant Medications fluconazole (Diflucan) 150 MG tablet clotrimazole (Lotrimin) 1 % cream This note was drafted using Ambient (AI) technology. The patient/patient's guardian has been informed and has consented to the use of this technology: Yes Future Appointments Date Time Provider Department Center 10/20/2025 1:30 PM Delaney Braydon ADLT DENT [facility] 10/29/2025 11:15 AM Brooklyn Jalloh MD MEDICINE [facility] [1] Allergies Allergen Reactions Fish Allergy Unknown Fish (substance) Shellfish Allergy Other reaction(s): rash documented in this encounter Plan of Treatment Upcoming Encounters Date Type Department Care Team (Late st Contact Info) Description 10/20/2025 1:30 PM EST Office Visit [facility] [address] [place] [address] David Brysonaris [address] [place] [address] 10/29/2025 11:15 AM EST Office Visit [facility] [address] [place] [phone] Brooklyn Jalloh MD [address] [place] [phone] documented as of this encounter Procedures Procedure Name Priority Date/Time Associated Diagnosis Comments POCT URINALYSIS DIPSTICK Routine 09/20/2025 9:43 AM EDT Vaginal itching CULTURE, URINE, ROUTINE Routine 09/20/2025 9:40 AM EDT Vaginal itching Vaginal discharge BACTERIAL VAGINOSIS PANEL Routine 09/20/2025 9:39 AM EDT Vaginal itching Vaginal discharge CHLAMYDIA/N. GONORRHOEAE RNA, TMA, UROGENITAL Routine 09/20/2025 9:39 AM EDT Vaginal itching Vaginal discharge documented in this encounter Results * POCT Urinalysis (09/20/2025 9:43 AM EDT) Color, UA Yellow Clarity, UA Clear Glucose, UA Negative Bilirubin, UA Few 15 Comment:Small Ketones, UA Positive Comment:Trace Spec Grav, UA 1.030 Blood, UA Negative Negative, None Detected pH, UA 5.5 Protein, UA Trace Comment:30 mg/dL Urobilinogen, UA 0.2 Leukocytes, UA Negative Negative, Rare, Trace Nitrite, UA Negative Negative, None Detected Appearance, UA clear QC Media Lot # [id number] Lot# Expiration Date Urine (Urine, Random) 09/20/2025 9:43 AM EDT [employer] POINT OF CARE TEST ENTER/EDIT ORDERABLES Final Result * Culture, Urine, Routine (09/20/2025 9:40 AM EDT) Urine Urine specimen obtained by clean catch procedure / Unknown 09/20/2025 9:40 AM EDT 09/20/2025 1:01 PM EDT Comment:UACC Narrative [facility] - 09/21/2025 12:34 PM EDT Urine Culture No growth. Specimen Source: Urine clean catch [employer] LAB MICROBIOLOGY - GENERAL ORD ERABLES Final Result [facility] [address] [place] [phone] * (ABNORMAL) Bacterial Vaginosis (09/20/2025 9:39 AM EDT) TRICHOMONAS VAGINALIS DETECTION BY PCR NOT DETECTED Not Detect [facility] BACTERIAL VAGINOSIS DETECTION BY PCR NEGATIVE Negative [facility] Comment:The BV organism targ ets of the Xpert Xpress MVP test can becommensal in women; Xpert Xpress MVP positive results forbacterial vaginosis should be considered in conjunction withother clinical and patient information to determine thedisease status. Organisms that are not detected by the XpertXpress MVP test have also been reported to be associatedwith BV and aerobic vaginitis.The Xpert Xpress MVP test performance has not been evaluatedin patients under the age of 14. SRIDEVI GROUP DETECTION BY PCR DETECTED(A) Not Detect [facility] Sridevi glab krusei PCR NOT DETECTED Not Detect [facility] Swab Vaginal structure / Unknown 09/20/2025 9:39 AM EDT 09/20/2025 1:01 PM EDT Genna Irizarry [facility] MICROBIOLOGY - GENERAL ORD ERABLES Final Result [facility] [address] [place] [phone] * Chlamydia/N. Gonorrhoeae RNA, TMA, Vaginal (09/20/2025 9:39 AM EDT) CT PCR NOT DETECTED Not Detect. [facility] Comment:A not detected test result does not exclude the possibilityof infection because test results can be affected byimproper specimen collection, concurrent antibiotic therapy,or the number of organisms in the specimen which may bebelow the sensitivity of the test. As with many diagnostictests, results from the Xpert CT/NG assay should beinterpreted in conjunction with other laboratory andclinical data available to the clinician.Xpert CT/NG performance has not been evaluated in patientsless than 14 years of age. The assay should not be used forthe evaluationof suspected sexual abuse or for other medico-legalindications. Additional testing is recommended in anycircumstance when false positive or false negative resultscould lead to adverse medical, social or psychologicalconsequences. NG PCR NOT DETECTED Not Detect. [facility] Comment:A not detected test result does not exclude the possibilityof infection because test results can be affected byimproper specimen collection, concurrent antibiotic therapy,or the number of organisms in the specimen which may bebelow the sensitivity of the test. As with many diagnostictests, results from the Xpert CT/NG assay should beinterpreted in conjunction with other laboratory andclinical data available to the clinician.Xpert CT/NG performance has not been evaluated in patientsless than 14 years of age. The assay should not be used forthe evaluationof suspected sexual abuse or for other medico-legalindications. Additional testing is recommended in anycircumstance when false positive or false negative resultscould lead to adverse medical, social or psychologicalconsequences. Swab (Vaginal Swab) 09/20/2025 9:39 AM EDT 09/20/2025 1:01 PM EDT Genna Irizarry [facility] MICROBIOLOGY - GENERAL ORD ERABLES Final Result Performing Organization Address City/State/[facility] Co de Phone Number [facility] [address] [place] [address] [phone] documented in this encounter Visit Diagnoses Diagnosis Vaginal discharge- Primary Leukorrhea, not specified as infective Vaginal itching Pruritus of genital organs Vaginal candidiasis Candidiasis of vulva and vagina documented in this encounter Additional Health Concerns Assessment Noted Time PHQ-9 Depression Total Score: 19 025 11:41 AM EDT documented as of this encounter Care Teams Aeronautical Research Engineer Relationship Specialty Start Date End Date Brooklyn Jalloh MD [address] [place] [phone] PCP - General Family Medicine 07/17/21 documented as of this encounter
[2025-09-24 10:13] VITALS: BP 102/70; PULSE 70; O2SAT 99; BMI 31.2
--- NOTE | 2025-09-24 10:13 | A.OFFVIS_ITS ---
Vital Signs 09/24/25 10:13 Height 5 ft 5 in Weight 187 lb 6.287 oz BMI 31.2 BP 102/70 Blood Pressure Location Lt brachial Position Sitting Pulse 70 Pulse Source Pulse Oximeter Pulse Oximetry (%) 99 Oxygen Delivery Method Room Air Intake Visit Reasons: Asthma Historian Dramatic Arts Required: Yes Historian Dramatic Arts Services: Historian Dramatic Arts Present Historian Dramatic Arts Name: Maribel Allergies shrimp (SHRIMP) Allergy (Unknown, Verified 09/24/25 10:22) UNKNOWN HPI HPI Asthma: Details: 55-year-old lady, nonsmoker, but with significant exposure to secondhand smoke for over 20 years, followed for mild LEAH and asthma.? Patient has been using her CPAP with reasonable control of her underlying sleep apnea.? Her asthma symptoms at this time are well controlled on current regimen of Breo and albuterol MDI. Her cough has resolved after a course of Levaquin. She does have underlying GERD for which she has been using omeprazole 20 mg daily. Patient is also currently on colchicine for pericarditis. [facility] Medical History Other and unspecified hyperlipidemia Essential hypertension Family history of coronary artery disease Bilateral knee pain Chronic pain Fibromyalgia Surgical History History of cholecystectomy H/O section H/O lateral meniscus repair of left knee History of hysterectomy Family History Father History of open heart surgery Brother Hypertension Mother Colon cancer Social History Household Members Other:: son Housing: Apartment Alcohol intake: never Patient Tobacco Use Status: Never used Tobacco Current occupational status: disabled Current occupation: Right Handed Review of Systems Const Denies daytime sleepiness, Denies excessive sweating, Denies fatigue, Denies fever(s), Denies lethargy, Denies malaise, Denies night sweats, Denies snoring and Denies weight loss Eyes Denies blurry vision and Denies itchy eyes ENT Denies nasal congestion, Denies post nasal drip, Denies sinus pain, Denies sinus pressure and Denies other ( Thrush) Card Denies chest pain, Denies pedal edema, Denies dyspnea, Denies orthopnea and Denies paroxysmal nocturnal dyspnea Resp Denies cough, Denies hemoptysis, Denies excessive phlegm production, Denies dyspnea, Denies snoring and Denies wheezing GI Denies abdominal pain and Denies heartburn Musc Denies myalgias, Denies arthralgias and Denies joint swelling Skin/Breast Denies rash Neuro Denies memory loss and Denies seizure-like activity Psych Denies abnormal sleep pattern, Denies anxiety and Denies memory loss Endo Denies excessive sweating, Denies fatigue and Denies heat intolerance Bryant/Lymph Denies easy bruising Aller/Immun Denies itchy eyes, Denies seasonal rhinorrhea and Denies wheezing Physical Exam Vital Signs: Last Vital Signs Pulse 70 09/24/25 10:13 BP 102/70 09/24/25 10:13 Pulse Ox 99 09/24/25 10:13 Oxygen Delivery Method Room Air 09/24/25 10:13 BMI result Body Mass Index 31.2 Const General: no acute distress and alert Nutritional Appearance: not obese Orientation/consciousness: Other orientation findings ( oriented) HEENT Head: Yes atraumatic Eyes General: appearance normal, both eyes and all related structures Sclerae: sclerae normal EOM: EOMs intact bilaterally Neck Neck: Yes supple Lymphatic: no lymphadenopathy noted Resp Effort & Inspection: normal respiratory effort and no use of accessory muscles Auscultation: clear to auscultation bilaterally Cardio Rate: regular rate Rhythm: regular rhythm Heart sounds: no gallops, no murmurs and no rubs Skin General skin exam: other ( warm) Extrem General: No clubbing, No cyanosis and No edema Assessment & Plan Assessment & Plan (1) Asthma: Code(s): J45.909 - Unspecified asthma, uncomplicated Category: Medical Plan: Well controlled on current regimen of Trelegy and albuterol MDI. Continue current regimen. (2) Cough: Code(s): R05.9 - Cough, unspecified Category: Medical Plan: Resolved after a course of Levaquin. (3) LEAH (obstructive sleep apnea): Code(s): G47.33 - Obstructive sleep apnea (adult) (pediatric) Category: Medical Plan: Well controlled on current CPAP therapy. Continue CPAP therapy. (4) Allergic rhinitis: Code(s): J30.9 - Allergic rhinitis, unspecified Category: Medical Plan: Improved control on nasal ipratropium. Continue current regimen. Coding Level of Care Code Est Pt Level 4 (38763) Complex EM visit Add On G2211 Diagnoses Asthma J45.909 Cough R05.9 LEAH (obstructive sleep apnea) G47.33 Allergic rhinitis J30.9
--- OUTSIDE RECORDS SUMMARY | 2025-09-24 11:18 | XMS_ITS | Encounter Summary ---
Author Organization [employer] Address [address] [facility] [address] [place] [address] Care Team Providers Care Historical Interpreter Name Role Phone Brooklyn Jalloh MD Primary Care Provider Reason for Visit * Reason Onset Date Comments Med Refill 02/04/2023 Encounter Details Date Type Department Care Team (Late st Contact Info) Description 02/04/2023 Telephone [facility] [address] [place] [address] Brooklyn Jalloh MD [address] [place] [address] Med Refill Social History Tobacco Use Types [...] sent to [facility] today 02/04/23. * Telephone Encounter - Ankur Villanueva - 02/04/2023 3:01 PM EDT Tc from pt requesting med refill Prednisone 20 mg Ibuprofen 800 mg Doxycycline 100 mg documented in this encounter Plan of Treatment Upcoming Encounters Date Type Department Care Team (Late st Contact Info) Description 10/20/2025 1:30 PM EST Office Visit [facility] ADULT [facility]AL [address] [place] [address] Braydon, Delaney [address] [place] [address] 10/29/2025 11:15 AM EST Office Visit [facility] [address] [place] [address] Brooklyn Jalloh MD [address] [place] [address] documented as of this encounter Visit Diagnoses Not on filedocumented in this encounter Additional Health Concerns Assessment Noted Time PHQ-9 Depression Total Score: 6 02/05/20 23 11:27 AM EDT documented as of this encounter Care Teams Historical Interpreter Relationship Specialty Start Date End Date Brooklyn Jalloh MD [address] [place], [place] [phone] PCP - General Family Medicine 07/17/21 documented as of this encounter
--- OUTSIDE RECORDS SUMMARY | 2025-09-24 11:18 | XMS_ITS | Encounter Summary ---
Author Organization [employer] Address [address] [facility] [address] [place] [address] Care Team Providers Care Dancing Master Name Role Phone Brooklyn Jalloh MD Primary Care Provider Encounter Details Date Type Department Care Team ([facility] Contact Info) Description 03/07/2023 Orders Only [facility] [address] [place] [phone] Brooklyn Jalloh MD [address] [place] [address] Rash of face (Primary Dx) Social History [...] Department Care Team (Late Contact Info) Description 10/20/2025 1:30 PM EST Office Visit [facility] ADULT [facility]ENT[facility] [address] [place], [place] [phone] Delaney Bryson [address] [place] [address] 10/29/2025 11:15 AM EST Office Visit [facility] [address] [place] [address] Brooklyn Jalloh MD [address] [place] [address] documented as of this encounter Visit Diagnoses Diagnosis Rash of face- Primary documented in this encounter Additional Health Concerns Assessment Noted Time PHQ-9 Depression Total Score: 6 02/05/20 23 11:27 AM EDT documented as of this encounter Care Teams Dancing Master Relationship Specialty Start Date End Date Brooklyn Jalloh MD [address] [place] [phone] PCP - General Family Medicine 07/17/21 documented as of this encounter
--- OUTSIDE RECORDS SUMMARY | 2025-09-24 11:18 | XMS_ITS | Encounter Summary ---
Author Organization [employer] Address [address] [facility] [address] [place] [address] Care Team Providers Care Grinder Machine Setter Name Role Phone Brooklyn Jalloh MD Primary Care Provider [phone] Encounter Details Date Type Department Care Team (Late Contact Info) Description 02/15/2023 Orders Only [facility] [address] [place] [address] Brooklyn Jalloh MD [address] [place] [address] Ingrown toenail (Primary Dx) Social History Tobacco [...] Description 10/20/2025 1:30 PM EST Office Visit [facility] ADULT DENT[facility] [address] [place], [place] [phone] Delaney Bryson [address] [place] [address] 10/29/2025 11:15 AM EST Office Visit [facility] [address] [place], [place] [phone] Brooklyn Jalloh MD [address] [place], [place] [phone] documented as of this encounter Visit Diagnoses Diagnosis Ingrown toenail- Primary Ingrowing nail documented in this encounter Additional Health Concerns Assessment Noted Time PHQ-9 Depression Total Score: 6 02/05/20 23 11:27 AM EDT documented as of this encounter Care Teams Grinder Machine Setter Relationship Specialty Start Date End Date Brooklyn Jalloh MD [address] [place] [phone] PCP - General Family Medicine 07/17/21 documented as of this encounter
--- OUTSIDE RECORDS SUMMARY | 2025-09-24 11:18 | XMS_ITS | Encounter Summary ---
Author Organization [employer] Address 75 [facility] 7t [place] [address] Care Team Providers Care Otr Refrigerated Cdl Truck Driver Name Role Phone Brooklyn Jalloh MD Primary Care Provider [phone] Encounter Details Date Type Department Care Team (Late st Contact Info) Description 08/26/2024 Orders Only [facility] [address] [place] [address] Brooklyn Jalloh MD 230 [place] [address] Elevated alkaline phosphatase level (Primary Dx) Social [...] Description 10/20/2025 1:30 PM EST Office Visit [facility] [address] [place] [address] Braydon, Delaney [address] [place] [address] 10/29/2025 11:15 AM EST Office Visit [facility] [address] [place] [address] Brooklyn Jalloh MD [address] [place] [address] documented as of this encounter Procedures Procedure Name Priority Date/Time Associated Diagnosis Comments MITOCHONDRIAL ANTIBODY WITH REFLEX TO TITER Routine 04/02/2025 11:49 AM EDT Elevated alkaline phosphatase level documented in this encounter Results * Mitochondrial Antibody with Reflex to Titer (04/02/2025 11:49 AM EDT) Mitochondrial Antibodies NEGATIVE NEGATIVE [facility] Comment:THIS TEST WAS PERFOR MED AT:[employer] [place] [id number] GRIGGS MD Mitochondrial Ab Titer TNP [facility] Blood Venous blood specimen / Unknown 04/02/2025 11:49 AM EDT 04/02/2025 1:17 PM EDT Brooklyn Jalloh MD LAB BLOOD ORDERABLES Final Res ult Performing Organization Address City/State/[facility] Co de Phone Number [facility] [address] [place] [address] [phone] documented in this encounter Visit Diagnoses Diagnosis Elevated alkaline phosphatase level- Primary documented in this encounter Additional Health Concerns Assessment Noted Time PHQ-9 Depression Total Score: 5 03/16/20 24 11:45 AM EDT documented as of this encounter Care Teams Otr Refrigerated Cdl Truck Driver Relationship Specialty Start Date End Date Brooklyn Jalloh MD [address] [place] [address] PCP - General Family Medicine 07/17/21 documented as of this encounter
--- OUTSIDE RECORDS SUMMARY | 2025-09-24 11:18 | XMS_ITS | Encounter Summary ---
Author Organization [employer] Address 75 [facility] 7t [place] [address] Care Team Providers Care Licensed Real Estate Broker Name Role Phone Brooklyn Jalloh MD Primary Care Provider [phone] Encounter Details Date Type Department Care Team (Late st Contact Info) Description 01/28/2023 Orders Only [facility] [address] [place] [address] Sarika Jenkins CNM [address] [place] [address] Candidiasis of vulva and vagina (Primary Dx) [...] Description 10/20/2025 1:30 PM EST Office Visit [facility] [address] [place] [address] Delaney Bryson [address] [place] [address] 10/29/2025 11:15 AM EST Office Visit [facility] [address] [place] [address] Brooklyn Jalloh MD [address] [place] [address] documented as of this encounter Visit Diagnoses Diagnosis Candidiasis of vulva and vagina- Primary documented in this encounter Care Teams Licensed Real Estate Broker Relationship Specialty Start Date End Date Brooklyn Jalloh MD [address] [place] [address] PCP - General Family Medicine 07/17/21 documented as of this encounter
--- OUTSIDE RECORDS SUMMARY | 2025-09-24 11:18 | XMS_ITS | Encounter Summary ---
Author Organization [employer] Address 75 [facility] 7t [place] [address] Care Team Providers Care Tube Tester Name Role Phone Brooklyn Jalloh MD Primary Care Provider [phone] Reason for Visit * Reason Onset Date Comments Medication Question 08/20/2024 Results 08/20/2024 Encounter Details Date Type Department Care Team ([facility] st Contact Info) Description 08/20/2024 Telephone [facility] 230 [place] [address] Brooklyn Jalloh MD 230 [place], [place] [phone] Medication Question; Results Social History Tobacco Use [...] 2:40 PM EDT TC placed to pt [phone] via [employer] in regards to below message. RN informed [...] - 08/20/2024 3:47 PM EDT Noted. Per Slated, shoulder Xray performed on 08/11/24 however interpretation [...] BW. Pt verbalized understanding. Pt also requesting wqhjzva-[id number]-[id number] medication be Rx'd again for her migraines. [...] results: Labs Date when done: 08/18/24 Facility: [facility] Pt is also requesting Eletriptan medication for migraines but junior copywriter did not see medication on med list. Please contact pt at [phone]. (South African Speaker) documented in this encounter Plan of Treatment Upcoming Encounters Date Type Department Care Team (Late st Contact Info) Description 10/20/2025 1:30 PM EST Office Visit [facility] ADULT D[facility]AL [address] [place] [address] David Brysonaris [address] [place] [address] 10/29/2025 11:15 AM EST Office Visit [facility] [address] [place] [address] Brooklyn Jalloh MD [address] [place] [address] documented as of this encounter Visit Diagnoses Not on filedocumented in this encounter Additional Health Concerns Assessment Noted Time PHQ-9 Depression Total Score: 5 03/16/20 24 11:45 AM EDT documented as of this encounter Care Teams Tube Tester Relationship Specialty Start Date End Date Brooklyn Jalloh MD [address] [place] [address] PCP - General Family Medicine 07/17/21 documented as of this encounter
--- OUTSIDE RECORDS SUMMARY | 2025-09-24 11:18 | XMS_ITS | Encounter Summary ---
Author Organization [employer] Address [address] [facility] [address] 7t [place] [address] Care Team Providers Care Senior Pharmacy Technician Name Role Phone Brooklyn Jalloh MD Primary Care Provider [phone] Encounter Details Date Type Department Care Team (Late st Contact Info) Description 08/25/2024 Orders Only [facility] [address] [place] [address] Provider, MD Dipak Social History Tobacco Use [...] Description 10/20/2025 1:30 PM EST Office Visit [facility] [address] [place], [place] [phone] Braydon, Delaney [address] [place], [place] [phone] 10/29/2025 11:15 AM EST Office Visit [facility] [address] [place], [place] [phone] Brooklyn Jalloh MD 230 [place], [place] [phone] documented as of this encounter Procedures Procedure [...] as of this encounter Care Teams Senior Pharmacy Technician Relationship Specialty Start Date End Date Brooklyn Jalloh MD 230 [place], [place] [phone] PCP - General Family Medicine 07/17/21 documented as of this encounter
--- OUTSIDE RECORDS SUMMARY | 2025-09-24 11:18 | XMS_ITS | Encounter Summary ---
Author Organization [employer] Address 75 [facility] 7t [place] [address] Care Team Providers Care Superintendent Measurement Name Role Phone Brooklny Jalloh MD Primary Care Provider [phone] Reason for Visit * Reason Onset Date Comments Durable Medical Equipment 02/07/2023 Encounter Details Date Type Department Care Team (Late st Contact Info) Description 02/07/2023 Telephone [facility] [address] [place] [address] Brooklyn Jalloh MD 230 [place] [address] Durable Medical Equipment Social History Tobacco Use [...] status on walker please contact pt at [phone]. documented in this encounter Plan of Treatment Upcoming Encounters Date Type Department Care Team (Late st Contact Info) Description 10/20/2025 1:30 PM EST Office Visit [facility] ADULT [facility] [address] [place] [address] BraydonDavidDelaney [address] [place] [address] 10/29/2025 11:15 AM EST Office Visit [facility] [address] [place] [address] Brooklyn Jalloh MD 230 [place] [address] documented as of this encounter Visit Diagnoses Not on filedocumented in this encounter Additional Health Concerns Assessment Noted Time PHQ-9 Depression Total Score: 6 02/05/20 23 11:27 AM EDT documented as of this encounter Care Teams Superintendent Measurement Relationship Specialty Start Date End Date Brooklyn Jalloh MD [address] [place] [address] PCP - General Family Medicine 07/17/21 documented as of this encounter
--- OUTSIDE RECORDS SUMMARY | 2025-09-24 11:18 | XMS_ITS | Encounter Summary ---
Author Organization [employer] Address 75 [facility] 7t [place] [address] Care Team Providers Care Methods Engineer Name Role Phone Brooklyn Jalloh MD Primary Care Provider [phone] Reason for Visit * Reason Onset Date Comments triage 03/06/2023 Encounter Details Date Type Department Care Team ([facility] st Contact Info) Description 03/06/2023 Telephone [facility] 230 [place], [place] [phone] Brooklyn Jalloh MD 230 [place] [address] triage Social History Tobacco Use Types Packs/Day [...] 03/06/2023 3:39 PM EDT triage call with [facility] International Sourcing Manager [place] [id number] Pt reports itchiness on face. Pt reports this has been for two days and has some red spots now. Pt has had this before in different areas of the body. Pt has seen catering assistant Cassie and jakob to help but doesn't know the name of the cream. Pt is offered to come to [facility] to be seen by provider but, declines. Pt wants only to have apt with catering assistant will send to PCP nurse team to [...] now The caller accepted this outcome speaks khmer documented in this encounter Plan of Treatment Upcoming Encounters Date Type Department Care Team (Late st Contact Info) Description 10/20/2025 1:30 PM EST Office Visit [facility] [address] [place], [place] [phone] Delaney Bryson [address] [place] [address] 10/29/2025 11:15 AM EST Office Visit [facility] [address] [place] [address] Brooklyn Jalloh MD [address] [place] [address] documented as of this encounter Visit Diagnoses Not on filedocumented in this encounter Additional Health Concerns Assessment Noted Time PHQ-9 Depression Total Score: 6 02/05/20 23 11:27 AM EDT documented as of this encounter Care Teams Methods Engineer Relationship Specialty Start Date End Date Brooklyn Jalloh MD [address] [place] [address] PCP - General Family Medicine 07/17/21 documented as of this encounter
--- OUTSIDE RECORDS SUMMARY | 2025-09-24 11:18 | XMS_ITS | Encounter Summary ---
Author Organization [employer] Address 75 [facility] 7t [place] [address] Care Team Providers Care Bullet Slug Casting Machine Operator Name Role Phone Brooklyn Jalloh MD Primary Care Provider [phone] Reason for Visit * Reason Onset Date Comments Referral 08/05/2024 Encounter Details Date Type Department Care Team ([facility] st Contact Info) Description 08/05/2024 Telephone [facility] 230 [place], [place] [phone] Brooklyn Jalloh MD 230 [place] [address] Referral Social History Tobacco Use Types Packs/Day [...] of the breast to be sent to [facility] Address: [address] [place] [address] Fax- [phone] documented in this encounter Plan of Treatment Upcoming Encounters Date Type Department Care Team (Late st Contact Info) Description 10/20/2025 1:30 PM EST Office Visit [facility] ADULT DENTAL [address] [place] [address] Braydon, Delaney [address] [place] [address] 10/29/2025 11:15 AM EST Office Visit [facility] [address] [place] [address] Brooklyn Jalloh MD [address] [place] [address] documented as of this encounter Visit Diagnoses Not on filedocumented in this encounter Additional Health Concerns Assessment Noted Time PHQ-9 Depression Total Score: 5 03/16/20 24 11:45 AM EDT documented as of this encounter Care Teams Bullet Slug Casting Machine Operator Relationship Specialty Start Date End Date Brooklyn Jalloh MD [address] [place] [address] PCP - General Family Medicine 07/17/21 documented as of this encounter
--- OUTSIDE RECORDS SUMMARY | 2025-09-24 11:19 | XMS_ITS | Encounter Summary ---
Author Organization [employer] Address [address] [facility] [address] 7t [place] [address] Care Team Providers Care Quality Engineer Medical Device Name Role Phone Brooklyn Jalloh MD Primary Care Provider [phone] Reason for Visit * Reason Comments Med Refill Encounter Details Date Type Department Care Team (Late st Contact Info) Description 09/24/2025 Refill [facility] [address] [place] [address] Brooklyn Jalloh MD 230 [place] [address] Cough in adult patient Social History Tobacco Use Types Packs/Day Years [...] Description 10/20/2025 1:30 PM EST Office Visit [facility] 230 [place] [address] Delaney Bryson 230 [place] [address] 10/29/2025 11:15 AM EST Office Visit [facility] [address] [place] [address] Brooklyn Jalloh MD [address] [place] [address] documented as of this encounter Visit Diagnoses Diagnosis Cough in adult patient documented in this encounter Additional Health Concerns Assessment Noted Time PHQ-9 Depression Total Score: 19 025 11:41 AM EDT documented as of this encounter Care Teams Quality Engineer Medical Device Relationship Specialty Start Date End Date Brooklyn Jalloh MD [address] [place] [address] PCP - General Family Medicine 07/17/21 documented as of this encounter
--- OUTSIDE RECORDS SUMMARY | 2025-09-24 11:19 | XMS_ITS | Encounter Summary ---
Author Organization [employer] Address 75 [facility] 7t [place] [address] Care Team Providers Care Airport Manager Name Role Phone Brooklyn Jalloh MD Primary Care Provider [phone] Encounter Details Date Type Department Care Team (Late Contact Info) Description 05/11/2023 Orders Only [facility] [address] [place] [address] Brooklyn Jalloh MD 230 [place] [address] Onychomycosis (Primary Dx) Social History Tobacco Use [...] Office Visit [facility] ADULT DENTAL [address] [place] [address] Delaney Bryson 230 [place] [address] 10/29/2025 11:15 AM EST Office Visit [facility] MED[facility] 230 [place] [address] Brooklyn Jalloh MD [address] [place] [address] documented as of this encounter Visit Diagnoses Diagnosis Onychomycosis- Primary Dermatophytosis of nail documented in this encounter Additional Health Concerns Assessment Noted Time PHQ-9 Depression Total Score: 6 02/05/20 23 11:27 AM EDT documented as of this encounter Care Teams Airport Manager Relationship Specialty Start Date End Date Brooklyn Jalloh MD [address] [place] [address] PCP - General Family Medicine 07/17/21 documented as of this encounter
--- OUTSIDE RECORDS SUMMARY | 2025-09-24 11:19 | XMS_ITS | Encounter Summary ---
Author Organization [employer] Address 75 [facility] 7t [place] [address] Care Team Providers Care Rim Fire Charger Operator Name Role Phone Brooklyn Jalloh MD Primary Care Provider [phone] Reason for Visit * Reason Onset Date Comments referral 11/29/2023 Encounter Details Date Type Department Care Team ([facility] st Contact Info) Description 11/29/[address] [facility] [address] [place], [place] [phone] Brooklyn Jalloh MD [address] [place] [address] referral Social History Tobacco Use Types Packs/Day [...] Miscellaneous Notes * Telephone Encounter - Giuliana Fongsurekha Dhillonrero - 11/29/2023 1:47 PM EST Tc from pt requesting a Referral for [facility] Gastrology with Dr. Aldrich @ [address] [place] [address] to be further Evaluated for her Diagnoses @ the [facility] of gastroenteritis. Please contact pt @ [phone] documented in this encounter Plan of Treatment Upcoming Encounters Date Type Department Care Team ([facility] st Contact Info) Description 10/20/2025 1:30 PM EST Office Visit [facility] AD[facility] [address] [place] [address] Delaney Bryson [address] [place] [address] 10/29/2025 11:15 AM EST Office Visit [facility] [address] [place] [address] Brooklyn Jalloh MD [address] [place] [address] documented as of this encounter Visit Diagnoses Not on filedocumented in this encounter Additional Health Concerns Assessment Noted Time PHQ-9 Depression Total Score: 6 02/05/20 23 11:27 AM EDT documented as of this encounter Care Teams Rim Fire Charger Operator Relationship Specialty Start Date End Date Brooklyn Jalloh MD [address] [place] [address] PCP - General Family Medicine 07/17/21 documented as of this encounter
--- OUTSIDE RECORDS SUMMARY | 2025-09-24 11:19 | XMS_ITS | Encounter Summary ---
Author Organization [employer] Address 75 [facility] 7t [place] [address] Care Team Providers Care Supervisor Train Operations Name Role Phone Brooklyn Jalloh MD Primary Care Provider [phone] Encounter Details Date Type Department Care Team ([facility] st Contact Info) Description 03/19/2025 Orders Only [facility] [address] [place] [address] Brooklyn Jalloh MD [address] [place] [address] Contact with and (suspected) exposure to infections [...] Description 10/20/2025 1:30 PM EST Office Visit [facility] ADULT DENT[facility] [address] [place] [address] Braydon, Delaney [address] [place] [address] 10/29/2025 11:15 AM EST Office Visit [facility] [address] [place] [address] Brooklyn Jalloh MD [address] [place] [address] documented as of this encounter Procedures Procedure [...] AM EDT) T Spot TB Negative Negative [facility] Comment:A negative test resu lt [...] as aquantitative test. TS PANEL A 0 [facility] TS PANEL B 0 [facility] Negative Control Passed [facility] Positive Control Passed [facility] Comment:For additional infor luke, please refer tohttp://education.Dynamixyz.Owlin/faq/JZD950(This link is being provided for informational/educational purposes only.)THIS TEST WAS PERFORMED AT:[employer] [id number] [place] [id number] SNOW MD,PHD 04/02/2025 11:4 9 AM EDT 04/02/2025 1:07 PM EDT Brooklyn Jalloh MD LAB BLOOD ORDERABLES Final Res ult [facility] [address] [place] [phone] * Hepatitis C Antibody with Reflex to HCV, RNA, Quantitative, Real-Time PCR (04/02/2025 11:49 AM EDT) Hepatitis C Antibody Nonreactive Nonreactive [facility] Comment:Antibodies to HCV no t detected; does not exclude early acuteHCV infection. Blood Venous blood specimen / Unknown 04/02/2025 11:49 AM EDT 04/02/2025 1:17 PM EDT us Brooklyn Jalloh MD LAB BLOOD ORDERABLES Final Res ult Performing Organization Address [facility] de Phone Number [facility] [address] [place] [phone] * HIV-1/2 Antigen and Antibodies, Fourth Generation, with Reflexes (04/02/2025 11:49 AM EDT) HIV AB/AG Nonreactive Nonreactive [facility] Comment:HIV-1 p24 Ag and/or HIV-1/HIV-2 Ab not detected.A test result that is nonreactive does not exclude thepossibility of exposure to or infection with HIV-1 and/orHIV-2. Nonreactive results in this assay for individualswith prior exposure to HIV-1 and/or HIV-2 may be due toantigen and antibody levels that are below the limit ofdetection of this assay.The [employer] HIV Ag/Ab Combo assay result andsupplemental assay results should be interpreted inconjunction with the patient's clinical presentation,history and other laboratory results. If the results areinconsistent with clinical evidence, additional testing issuggested to confirm the result. Blood Venous blood specimen / Unknown 04/02/2025 11:49 AM EDT 04/02/2025 1:17 PM EDT us Brooklyn Jalloh MD LAB BLOOD ORDERABLES Final Res ult Performing Organization Address [facility] Co de Phone Number [facility] [address] [place] [address] [phone] documented in this encounter Visit Diagnoses Diagnosis Contact with and (suspected) exposure to infections with a predominantly sexual mode of transmission- Primary documented in this encounter Additional Health Concerns Assessment Noted Time PHQ-9 Depression Total Score: 5 03/16/20 24 11:45 AM EDT documented as of this encounter Care Teams Supervisor Train Operations Relationship Specialty Start Date End Date Brooklyn Jalloh MD [address] [place] [address] PCP - General Family Medicine 07/17/21 documented as of this encounter
--- OUTSIDE RECORDS SUMMARY | 2025-09-24 11:19 | XMS_ITS | Encounter Summary ---
Author Organization [employer] Address 75 [facility] 7t [place] [address] Care Team Providers Care Band Instrument Repairer Name Role Phone Brooklyn Jalloh MD Primary Care Provider [phone] Reason for Visit * Reason Comments Med Refill Encounter Details Date Type Department Care Team ([facility] st Contact Info) Description 05/18/2025 Refill [facility] [address] [place] [address] Brooklyn Jalloh MD [address] [place] [address] Social History Tobacco Use Types Packs/Day Years [...] Description 10/20/2025 1:30 PM EST Office Visit [facility]ULT [facility] [address] [place] [address] David Brysonaris [address] [place] [address] 10/29/2025 11:15 AM EST Office Visit [facility] [address] [place] [address] Brooklyn Jalloh MD [address] [place] [address] documented as of this encounter Visit Diagnoses Not on filedocumented in this encounter Additional Health Concerns Assessment Noted Time PHQ-9 Depression Total Score: 14 025 12:17 PM EDT documented as of this encounter Care Teams Band Instrument Repairer Relationship Specialty Start Date End Date Brooklyn Jalloh MD [address] [place] [address] PCP - General Family Medicine 07/17/21 documented as of this encounter
--- OUTSIDE RECORDS SUMMARY | 2025-09-24 11:19 | XMS_ITS | Encounter Summary ---
Author Organization [employer] Address [address] [facility] [address] [place] [address] Care Team Providers Care Home Health Caregiver Name Role Phone Brooklyn Jalloh MD Primary Care Provider [phone] Reason for Visit * Reason Onset Date Comments Medication Question 09/21/2025 Encounter Details Date Type Department Care Team ([facility] st Contact Info) Description 09/21/2025 Telephone [facility] [address] [place] [address] Brooklyn Jalloh MD [address] [place] [address] Medication Question Social History Tobacco Use Types [...] Telephone Encounter - Kasandra Hawk RN - 09/23/2025 3:15 PM EDT TC placed to [phone] using [facility] #ID [id number] regarding below message. RN left an VM for the patient to Red team nurses. PT to F/U PRN. * Telephone Encounter - Dallas Dasilva - 09/23/2025 11:41 AM EDT Tc from pt requesting either alternative ointment or a alternative pill to help wit vaginal itching, states itching is inside vagina and pills prescribed before have not helped Contact pt at [phone] (lithuanian) * Telephone Encounter - Jovita Gallagher RN - 09/21/2025 11:52 AM EDT TC placed to patient [phone] in regards to below message via [employer] ([facility] #[id number]).Macroeconomics Professor asked the patient to turn speaker off d/t difficulties with audio sounds however patient became upset stating her hands were wet and she needed to keep the speaker on. Patient then disconnected the call. Patient to f/u PRN. * Telephone Encounter - Roque yTson - 09/21/2025 11:23 AM EDT Pt picked up meds yesterday . Pt now looking for alternative to cream .reports not helping * Telephone Encounter - Jovita Gallagher RN - 09/21/2025 9:38 AM EDT TC placed to patient [phone] however no answer, RN left VM requesting CB to red team nurses. Patient to f/u PRN. If patient returns call, please advise diflucan and clotrimazole cream were sent to the pharmacy yesterday. Thank you * Telephone Encounter - Dallas Dasilva - 09/21/2025 8:51 AM EDT Tc from pt stating she was seen in [facility] yesterday and vaginal itching has not stopped , she is requesting a script for a vaginal cream to help with itching Contact pt at [phone] (lithuanian) documented in this encounter Plan of Treatment Upcoming Encounters Date Type Department Care Team (Late st Contact Info) Description 10/20/2025 1:30 PM EST Office Visit [facility] [address] [place] [address] Braydon Delaney [address] [place] [address] 10/29/2025 11:15 AM EST Office Visit [facility] [address] [place] [address] Brooklyn Jalloh MD [address] [place] [address] documented as of this encounter Visit Diagnoses Not on filedocumented in this encounter Additional Health Concerns Assessment Noted Time PHQ-9 Depression Total Score: 19 025 11:41 AM EDT documented as of this encounter Care Teams Home Health Caregiver Relationship Specialty Start Date End Date Brooklyn Jalloh MD [address] [place] [address] PCP - General Family Medicine 07/17/21 documented as of this encounter
--- OUTSIDE RECORDS SUMMARY | 2025-09-24 11:19 | XMS_ITS | Encounter Summary ---
Author Organization [employer] Address [address] [place] [address] [address] [place] [address] Care Team Providers Care Lamp Wirer Name Role Phone Brooklyn Jalloh MD Primary Care Provider [phone] Reason for Referral * (Routine) - Closed Specialty Diagnoses / Procedures Referred By Tenzin t Referred To Contact Diagnoses Benign breast disease Procedures BI Mammogram Diagnostic same day Diagnostic same/ Day Right Brooklyn Jalloh MD [address] [place] [address] Phone: tel: fax: Referral ID Status Reason Start Date Expiration Date Visits Re quested Visits Authorized [id number] Closed 03/20/2023 09/16/2023 1 1 Encounter Details Date Type Department Care Team (Late st Contact Info) Description 03/20/2023 Orders Only [facility] [address] [place] [address] [phone] Brooklyn Jalloh MD [address] [place] [address] [phone] Benign breast disease (Primary Dx) Social History [...] 1:30 PM EST Office Visit [facility] [address] [place] [address] Braydon, Delaney [address] [place] [address] 10/29/2025 11:15 AM EST Office Visit [facility] [address] [place] [address] Brooklyn Jalloh MD [address] [place] [phone] Scheduled Orders Name Type Priority Associated Diagnoses [...] documented as of this encounter Care Teams Lamp Wirer Relationship Specialty Start Date End Date Brooklyn Jalloh MD [address] [place] [phone] PCP - General Family Medicine 07/17/21 documented as of this encounter
--- OUTSIDE RECORDS SUMMARY | 2025-09-24 11:19 | XMS_ITS | Encounter Summary ---
Author Organization [employer] Address [address] [facility] [address] [facility] [address] [place] [address] Care Team Providers Care Bath Steward Name Role Phone Brooklyn Jalloh MD Primary Care Provider [phone] Encounter Details Date Type Department Care Team (Latest Contact Info) Description 09/20/2025 Travel Social History Tobacco Use Types Packs/Day [...] 10/20/2025 1:30 PM EST Office Visit [facility] [address] [place] [address] Braydon, Delaney [address] [place] [address] 10/29/2025 11:15 AM EST Office Visit [facility] [address] [place] [address] Brooklyn Jalloh MD [address] [place] [address] documented as of this encounter Visit Diagnoses Not on filedocumented in this encounter Additional Health Concerns Assessment Noted Time PHQ-9 Depression Total Score: 19 025 11:41 AM EDT documented as of this encounter Care Teams Bath Steward Relationship Specialty Start Date End Date Brooklyn Jalloh MD [address] [place] [phone] PCP - General Family Medicine 07/17/21 documented as of this encounter
--- OUTSIDE RECORDS SUMMARY | 2025-09-24 11:19 | XMS_ITS | Encounter Summary ---
Author Organization [employer] Address [address] [place] [address] Care Team Providers Care Campaign Marketing Specialist Name Role Phone Brooklyn Jalloh MD Primary Care Provider [phone] Encounter Details Date Type Department Care Team (Late st Contact Info) Description 09/22/2025 Telephone [facility] [address] [place] [address] Trenton Fernandez, COVERING AND LINING SUPERVISOR [address] [place] [address] Social History Tobacco Use Types Packs/Day Years [...] encounter Miscellaneous Notes * Telephone Encounter - Trenton Fernandez CNP - 09/22/2025 11:01 AM EDT Cream sent by Juan C,forwarded to ordering provider * Telephone Encounter - Genesis Cline RN - 09/22/2025 10:48 AM EDT Patient presents to walk in melissa states she does not want to be seen requesting new cream for vaginal itching as the cream sent during WALK IN CENTER visit doesn't help. Advised pt that a message can be sent to ordering provider., Please adivse walk in center nurses documented in this encounter Plan of Treatment Upcoming Encounters Date Type Department Care Team (Late st Contact Info) Description 10/20/2025 1:30 PM EST Office Visit [facility] [address] [place] [address] Braydon, Delaney [address] [place] [address] 10/29/2025 11:15 AM EST Office Visit [facility] [address] [place] [address] Brooklyn Jalloh MD [address] [place] [address] documented as of this encounter Visit Diagnoses Not on filedocumented in this encounter Additional Health Concerns Assessment Noted Time PHQ-9 Depression Total Score: 19 025 11:41 AM EDT documented as of this encounter Care Teams Campaign Marketing Specialist Relationship Specialty Start Date End Date Brooklyn Jalloh MD [address] [place] [address] PCP - General Family Medicine 07/17/21 documented as of this encounter
--- OUTSIDE RECORDS SUMMARY | 2025-09-24 11:19 | XMS_ITS | Encounter Summary ---
Author Organization [employer] Address [address] [facility] [address] [place] [address] Care Team Providers Care Strip Stamp Straightener Name Role Phone Brooklyn Jalloh MD Primary Care Provider [phone] Reason for Visit * Reason Onset Date Comments Medication Question 11/19/2024 Encounter Details Date Type Department Care Team ([facility] st Contact Info) Description 11/19/2024 Telephone [facility] [address] [place] [address] Brooklyn Jalloh MD [address] [place] [address] Medication Question Social History Tobacco Use Types [...] Description 10/20/2025 1:30 PM EST Office Visit [facility] [address] [place] [address] David Brysonaris [address] [place] [address] 10/29/2025 11:15 AM EST Office Visit [facility] [address] [place] [address] Brooklyn Jalloh MD [address] [place] [address] documented as of this encounter Visit Diagnoses Not on filedocumented in this encounter Additional Health Concerns Assessment Noted Time PHQ-9 Depression Total Score: 5 03/16/20 24 11:45 AM EDT documented as of this encounter Care Teams Strip Stamp Straightener Relationship Specialty Start Date End Date Brooklyn Jalloh MD [address] [place] [phone] PCP - General Family Medicine 07/17/21 documented as of this encounter
--- OUTSIDE RECORDS SUMMARY | 2025-09-24 11:19 | XMS_ITS | Clinical Summary ---
Author Organization [employer] Address [address] [facility] [address] [place] [address] Care Team Providers Care Bilingual Medical Assistant Name Role Phone Brokolyn Jalloh MD Primary Care Provider [phone] Allergies Active Allergy Reactions Criticality Noted Date Comments Fish Allergy Unknown 02/02/2025 Fish (substance) Shellfish Allergy 11/05/2022 Other reaction(s): rash Medications traZODone (Desyrel) 50 MG tablet Take 1 tablet by mouth in the morning. Active busPIRone (Buspar) 10 MG tablet Take [...] Active Respiratory Therapy Supplies (Adult Aerosol Mask) [facility] [place] DIRECTED WITH NEBULIZER 023 Active triamcinolone [...] as directed by MD. 30 patch 1 024 Active cholecalciferol (Vitamin D-3) 25 MCG tabletIndications :Vitamin D deficiency TAKE 1 TABLET BY MOUTH EVERY DAY 90 tablet 3 025 Active glucose blood (FREESTYLE LITE) test strip 1 each by Other route Once per day. 100 each 6 025 2026 Active TRUEplus Lancets 33G misc [...] EVERY MORNING 90 tablet 3 025 Active estradiol (Estrace) 0.1 MG/GM vaginal creamIndications: Atrophic vaginitis 1g vaginally nightly x 14 days, then 1 g vaginally twice a week 42.5 g 2 025 Active nortriptyline (Pamelor) 10 MG capsule TAKE 1 CAPSULE BY MOUTH EVERY DAY AT BEDTIME NEEDED FOR BACK PAIN 90 capsule 3 025 Active Ketotifen Fumarate 0.035 % solution Administer 1 drop into affected eye(s) in the morning and 1 drop in the evening. 10 mL 2 025 Active albuterol (2.5 MG/3ML) 0.083% nebulizer [...] FOR CONSTIPATION 30 packet 6 025 Active simethicone (Mylicon) 80 MG chewable [...] directed by MD. 30 patch 1 Active docusate sodium (Colace) 100 MG capsule [...] OR CHEW 90 tablet 3 025 Active aspirin-acetamino phen-caffeine (Pain Reliever Plus) 250-250-65 MG tabletIndications :Other migraine without status migrainosus, not intractable Take 1 tablet by mouth every 6 (six) hours if needed for headaches. 30 tablet 3 Active baclofen (Lioresal) 10 MG tablet Take 1 tablet (10 mg) by mouth 3 times daily. 90 tablet 2 Active predniSONE (Deltasone) 10 MG tablet Take 6 tabs PO daily x 2 days then 5 tabs x 2 days then 4 tabs x 2 days then 3 tabs x 2 days then 2 tabs x 2 days then 1 tab x 2 days then 1/2 tab x 2 days 43 tablet Active albuterol 108 (90 Base) MCG/ACT inhaler Inhale 2 puffs every 4 (four) hours if needed for wheezing or shortness of breath. 18 g 2 Active amoxicillin-clavu lanate (Augmentin) 875-125 MG tablet take 1 tablet by mouth twice daily until finished Active Probiotic, Lactobacillus, capsuleIndication s:Bloating Take 1 capsule by mouth Once per day. 30 capsule 3 2024 Active famotidine (Pepcid) 20 MG tabletIndications :Bloating Take 1 tablet (20 mg) by mouth 2 times daily. 60 tablet 11 025 2025 Active Diclofenac Sodium 1 % gel APPLY 2 GRAMS TO AFFECTED AREA(S) UP TO FOUR TIMES DAILY 100 g 1 Active clotrimazole (Lotrimin) 1 % creamIndications: Vaginal candidiasis Apply topically 2 times daily for 28 days. 30 g 5 025 2024 Active albuterol 108 (90 Base) MCG/ACT inhaler Inhale every 6 (six) hours. 022 2024 Discontinued(R eorder (will not trigger notification to Pharmacy)) Diclofenac Sodium 1 % gel Apply to affected area up to 4x daily 50 g 3 2024 Discontinued Fluticasone Furoate-Vilantero l (Breo Ellipta) 100-25 MCG/ACT aerosol powderIndications :Moderate persistent asthma, unspecified whether complicated Inhale 1 puff if needed in the morning and at bedtime (may increase for 1 week,). 1 each 2024 Discontinued predniSONE (Deltasone) 20 MG tablet 2024 Discontinued(T herapy completed) Respiratory Therapy Supplies (Nebulizer Mask Adult) miscIndications:M oderate persistent asthma, unspecified whether complicated 1 each if needed each day (Use as directed) for up to 1 day. 1 each 11 2024 fluconazole (Diflucan) 150 MG tabletIndications :Vaginal candidiasis Take 1 tablet (150 mg) by mouth 1 (one) time per week for 1 dose. 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 with hot pond operator on August 31, 2025 Acute left-sided low [...] follow-up results COPD with acute exacerbation ([facility]) Assessment & Plan (06/26/2025 11:15 AM EDT): [...] EDT): Diet controlled Will start going to [facility] with her daughter as well Anxiety disorder [...] & Plan (05/06/2023 8:08 AM EDT): Cont FLORENTIN Mittal Deep diaphragmatic breathing prn Obstructive sleep apnea syndrome 12/04/2021 04/14/2025 Encounters Date Type Department Care Team Description 09/24/2025 Refill [facility] [address] [place] [address] [phone] Brooklyn Jalloh MD Cough in adult patient 09/22/2025 Telephone [facility] [address] [place] [address] [phone] Trenton Fernandez CNP 09/21/2025 Telephone [facility] [address] [place] [address] [phone] Brooklyn Jalloh MD Medication Question 09/20/2025 9:40 AM EDT Office Visit [facility] [address] [place] [address] [phone] Genna Irizarry FNP Vaginal discharge (Primary Dx); Vaginal itching; Vaginal candidiasis 09/20/2025 Travel 09/13/2025 Refill [facility] [address] [place] [address] [phone] Brooklyn Jalloh MD 09/11/2025 11:40 AM EDT Office Visit [facility] [address] [place] [address] [phone] Trenton Fernandez CNP Bloating (Primary Dx); Intestinal dysbiosis; Gastroesophageal reflux disease without esophagitis 09/11/2025 Travel 09/06/2025 10:30 AM EDT Office Visit [facility] [address] [place] [phone] Abdirahman, Mel, OD Pingueculitis of right eye (Primary Dx) 09/06/2025 Travel 09/03/2025 Refill [facility] [address] [place] [address] [phone] Brooklyn Jalloh MD Moderate persistent asthma, unspecified whether complicated 09/02/2025 10:20 AM EDT Office Visit [facility] [address] [place] [address] [phone] Georgette Tellez DO Moderate persistent asthma with acute exacerbation (Primary Dx) 09/02/2025 Travel 08/24/2025 Orders Only [facility] [address] [place] [address] Brooklyn Jalloh MD 08/24/2025 Refill [facility] [address] [place] [address] Brooklyn Jalloh MD Other migraine without status migrainosus, not intractable 08/23/2025 Refill [facility] [address] [place] [address] Brooklyn Jalloh MD 08/20/2025 Telephone [facility] [address] [place] [address] Brooklyn Jalloh MD Med Refill 08/20/2025 Refill [facility] [address] [place] [address] Brooklyn Jalloh MD 08/18/2025 Telephone [facility] [address] [place] [address] [phone] Brooklyn Jalloh MD Medication Question 08/18/2025 Refill [facility] [address] [place] [address] [phone] Brooklyn Jalloh MD Cervical spondylosis; Degeneration of lumbar intervertebral disc 08/15/2025 Refill [facility] [address] [place] [address] Brooklyn Jalloh MD 08/13/2025 11:15 AM EDT Office Visit [facility] [address] [place] [address] [phone] Brooklyn Jalloh MD Moderate persistent asthma without complication (Primary Dx); Acute idiopathic pericarditis; Esophageal dysphagia; Primary hypertension; Gastroesophageal reflux disease without esophagitis; Depression, recurrent (CMS/HCC); Generalized anxiety disorder; Fibromyalgia; Calcific tendonitis of right shoulder; Degeneration of intervertebral disc of lumbar region, unspecified whether pain present 08/13/2025 Travel 08/12/2025 Telephone [facility] [address] [place] [address] Brooklyn Jalloh MD Chart Prep 08/05/2025 Refill [facility] [address] [place] [address] Brooklyn Jalloh MD 08/04/2025 Orders Only GENERIC EXTERNAL DATA DEPARTMENT Provider, Generic External Data 07/30/2025 Refill [facility] [address] [place] [address] [phone] Brooklyn Jalloh MD 07/30/2025 Refill [facility] [address] [place] [address] [phone] Brooklyn Jalloh MD 07/23/2025 11:00 AM EDT Office Visit [address] [address] Raffi Mendoza MD Moderate persistent asthma, unspecified whether complicated (Primary Dx) 07/23/2025 Travel 07/22/2025 Telephone [facility] [address] [place] [phone] Karley Smith MA CHARTPREP 07/22/2025 Orders Only [facility] External Provider, [facility] 07/20/2025 Telephone [facility] [address] [place] [address] [phone] Brooklyn Jalloh MD Referral 07/19/2025 1:40 PM EDT Office Visit [facility] [address] [place] [address] [phone] Zhane Gandhi MD Chronic cough (Primary Dx); Viral URI 07/19/2025 Travel 07/13/2025 1:40 PM EDT [facility] [address] [address] Lida Francisco MD Lower abdominal pain; Acute left-sided low back pain, unspecified whether sciatica present 07/13/2025 Travel 07/11/2025 Refill [facility] [address] [place] [phone] Brooklyn Jalloh MD Biliary colic 07/06/2025 2:40 PM EDT Office Visit [facility] [address] [place] [address] [phone] Zhane Gandhi MD Subacute cough (Primary Dx); Postnasal drip 07/06/2025 Travel 06/29/2025 Refill [facility] [address] [place] [address] [phone] Brooklyn Jalloh MD Constipation, unspecified constipation type 06/26/2025 10:00 AM EDT Office Visit [facility] [place] [address] Brooklyn Jalloh MD Bronchitis (Primary Dx); Sore throat; COPD with acute exacerbation ([facility]) 06/26/2025 Travel from Last 3 Months Immunizations Immunization [...] Score 19 08/13/2025 Patient Health Questionnaire-9 Score 08/13/2025 Last [...] 19 09/20/2025 9:25 AM EDT Oxygen Saturation 99% 09/11/2025 11:56 AM EDT Inhaled Oxygen Concentration - - Weight 89.5 kg (197 lb 6.4 oz) 09/20/2025 9:25 A M EDT Height 165.1 cm (5' 5 ) 09/20/2025 9:25 AM EDT Body Mass Index 32.85 09/20/2025 9:25 AM EDT Plan of Treatment Upcoming Encounters Date Type Department Care Team (Late st Contact Info) Description 10/20/2025 1:30 PM EST Office Visit [facility] [address] [place] [address] Delaney Bryson [address] [place] [address] 10/29/2025 11:15 AM EST Office Visit [facility] [address] [place] [address] Brooklyn Jalloh MD [address] [place] [address] Health Maintenance Due Date Last Done Comments [...] 10/01/2023 Disability Screening 07/23/2026 07/23/2025 Tobacco Screening 09/20/2026 09/20/2025 Dental X-Ray: Full Mouth 08/25/2027 08/24/2024, 04/26 [...] 9:39 AM EDT Vaginal itching Vaginal discharge XR CHEST 2 VIEWS STAT 09/02/2025 11:1 5 AM EDT Moderate persistent asthma with acute exacerbation HIGH SENSITIVITY TROPONIN I Routine 08/04/2025 11:48 [...] Recently Relevant to Health Maintenance Results * POCT Urinalysis (09/20/2025 9:43 AM EDT) Only the most recent of2 resultswithin the time period is included. Color, UA Yellow Clarity, UA Clear Glucose, UA Negative Bilirubin, UA Few 15 Comment:Small Ketones, UA Positive Comment:Trace Spec Grav, UA 1.030 Blood, UA Negative Negative, None Detected pH, UA 5.5 Protein, UA Trace Comment:30 mg/dL Urobilinogen, UA 0.2 Leukocytes, UA Negative Negative, Rare, Trace Nitrite, UA Negative Negative, None Detected Appearance, UA clear QC Media Lot # [id number] Lot# Expiration Date [id number] Urine (Urine, Random) 09/20/2025 9:43 AM EDT Genna Irizarry HOT KNIFE CUTTER POINT OF CARE TEST ENTER/EDIT ORDERABLES Final Result * Culture, Urine, Routine (09/20/2025 9:40 AM EDT) Only the most recent of2 resultswithin the time period is included. Urine Urine specimen obtained by clean catch procedure / Unknown 09/20/2025 9:40 AM EDT 09/20/2025 1:01 PM EDT Comment:UACC Narrative [facility] - 09/21/2025 12:34 PM EDT Urine Culture No growth. Specimen Source: Urine clean catch [facility] LAB MICROBIOLOGY - GENERAL ORD ERABLES Final Result Performing Organization Address [facility]/ZIP Co de Phone Number [facility] [address] [place] [address] [phone] * (ABNORMAL) Bacterial Vaginosis (09/20/2025 9:39 AM EDT) TRICHOMONAS VAGINALIS DETECTION BY PCR NOT DETECTED Not Detect [facility] BACTERIAL VAGINOSIS DETECTION BY PCR NEGATIVE Negative [facility] Comment:The BV organism targ ets of [...] evaluatedin patients under the age of 14. ABHISHEK GROUP DETECTION BY PCR DETECTED(A) Not Detect [facility] Abhishek glab krusei PCR NOT DETECTED Not Detect [facility] Swab Vaginal structure / Unknown 09/20/2025 9:39 AM EDT 09/20/2025 1:01 PM EDT [facility] LAB MICROBIOLOGY - GENERAL ORD ERABLES Final Result Performing Organization Address [facility]/ZIP Co de Phone Number [facility] [address] [place] [address] [phone] * Chlamydia/N. Gonorrhoeae RNA, TMA, Vaginal (09/20/2025 9:39 AM EDT) CT PCR NOT DETECTED Not Detect. [facility] Comment:A not detected test result does [...] psychologicalconsequences. NG PCR NOT DETECTED Not Detect. [facility] Comment:A not detected test result does [...] EDT 09/20/2025 1:01 PM EDT Genna Irizarry [facility] MICROBIOLOGY - GENERAL ORD ERABLES Final Result [facility] [address] [place] [address] [phone] * XR Chest 2 Views (09/02/2025 11:15 AM EDT) Only the most recent of2 resultswithin the time period is included. Anatomical Region Laterality Modality Chest Radiographic Zina ging 09/02/2025 11:1 5 AM EDT Narrative 09/02/2025 12:25 PM EDT [facility] [address] [place] [address] XRay Report Signed Patient: Machelle Wooten MR#: [id number] : 1970 Acct:[id number] Age/Sex: 55 / F ADM Date: 09/02/25 Loc: [facility] Attending Dr: Georgette Tellez DO Ordering Physician: Georgette Tellez DO Date of Service: 09/02/25 Procedure(s): XR chest 2V Accession Number(s): [id number] cc: Georgette Tellez DO Reason for Exam: worsening cough and SOB EXAMINATION: XR CHEST CLINICAL INFORMATION: worsening cough and SOB COMPARISON: X-ray 08/04/2025 TECHNIQUE: 2 views of the chest were obtained. FINDINGS: The cardiomediastinal silhouette is within normal limits. The lungs are well expanded. Mild bronchial wall thickening. There is no focal consolidation, edema, or effusion. No pneumothorax. No acute osseous abnormality. XR/XR chest 2V IMPRESSION: Mild bronchial wall thickening can be seen with small airway disease. Electronically signed by: Remington Nguyen MD 09/02/2025 12:22 PM EDT Dictated By: Remington Nguyen MD Signed By: <Electronically signed by Remington Nguyen MD in OV> 09/02/25 1222 DD/ 1115 TD/TT: 09/02/25 1120 Police Captain: Procedure Note Donotuseinterpreter, Image - 09/02/2025 [facility] [address] [place] [address] XRay Report Signed Patient: Machelle WootenMR#: [id number] : 1970Acct:[id number] Age/Sex: 55 / FADM Date: 09/02/25 Loc: HHCX Attending Dr: Georgette Tellez DO Ordering Physician: Georgette Tellez DO Date of Service: 09/02/25 Procedure(s): XR chest 2V Accession Number(s): [id number] cc: Georgette Tellez DO Reason for Exam: worsening cough and SOB EXAMINATION: XR CHEST CLINICAL INFORMATION: worsening cough and SOB COMPARISON: X-ray 08/04/2025 TECHNIQUE: 2 views of the chest were obtained. FINDINGS: The cardiomediastinal silhouette is within normal limits. The lungs are well expanded. Mild bronchial wall thickening. There is no focal consolidation, edema, or effusion. No pneumothorax. No acute osseous abnormality. XR/XR chest 2V IMPRESSION: Mild bronchial wall thickening can be seen with small airway disease. Electronically signed by: Remington Nguyen MD 09/02/2025 12:22 PM EDT Dictated By: Remington Nguyen MD Signed By: <Electronically signed by Remington Nguyen MD in OV> 09/02/25 1222 DD/ 1115 TD/TT: 09/02/25 1120 Police Captain: MARIBELL us Georgette Tellez DO IMG XR PROCEDURES Final Resu lt * Influenza A B2 ID NOW (Cano) (08/04/2025 11:48 AM EDT) IDNOW SERIAL# [id number] [facility] Influenza A Negative Negative [facility] Influenza B2 Negative Negative [facility] Influenza A B2 Note See Note [facility] Comment:The Cano ID NOW In fluenza A B2 test [...] GENERAL ORDERABLES Final Result Performing Organization Address City/[facility]/ZIP Co de Phone Number [facility] [address] [place] [address] [phone] * COVID-19 ID NOW (CANO) (08/04/2025 11:48 AM EDT) IDNOW SERIAL# [id number] [facility] COVID-19 TEST Negative Negative [facility] COVID-19 NOTE See Note [facility] Comment: Results are for the identification [...] within the [facility] and itsterritories are required to report all [...] EDT us Generic External Data Provider LAB MOLECULAR JUNIE GNOSTICS ORDERABLES Final Result Performing Organization Address City/[facility]/ZIP Co de Phone Number [facility] [address] [place] [address] [phone] * High Sensitivity Troponin I (08/04/2025 11:48 AM EDT) Only the most recent of2 resultswithin the time period is included. TROPONIN I HIGH SENSITIVITY <2.7 <3.5 - 17.0 ng/L [facility] Comment:The Cano high sens itivity Troponin-I results should beused in conjunction with other diagnostic information suchas ECG, clinical observations and information, and patientsymptoms to aid in the diagnosis of MS. 08/04/2025 11:4 8 AM EDT 08/04/2025 12:03 PM EDT us Generic External Data Provider LAB BLOOD ORDERAB LES Final Result Performing Organization Address City/[facility]/ZIP Co de Phone Number [facility] [address] [place] [phone] * Urinalysis w/reflex microscopic (08/04/2025 11:48 AM EDT) Color Urine Yellow [facility] Appearance Urine Clear [facility] PH 5.5 5.0 - 9.0 [facility] Glucose Urine UA Negative Negative mg/dL [facility] Urine Blood Negative Negative [facility] Specific [employer] - Urine 1.010 1.005 - 1.025 [facility] Urine Protein Negative Neg-Trace mg/dL [facility] Urine Ketones Negative Negative mg/dL [facility] Nitrite Urine Negative Negative [facility] Leukocyte Esterase Urine Negative Negative [facility] 08/04/2025 11:4 8 AM EDT 08/04/2025 12:03 PM EDT Narrative [facility] - 08/04/2025 12:08 PM EDT Urine, Clean Catch us Generic External Data Provider LAB URINE ORDERAB LES Final Result Performing Organization Address City/[facility]/ZIP Co de Phone Number [facility] [address] [place] [phone] * XR Chest 1 View (08/04/2025 10:37 AM EDT) Only the most recent of2 resultswithin the time period is included. Anatomical Region Laterality Modality Chest Radiographic Zina ging 08/04/2025 10:3 7 AM EDT Narrative 08/04/2025 10:54 AM EDT [address] [address] XRay Report Signed Patient: Machelle Wooten MR#: [id number] : 1970 Acct:[id number] Age/Sex: 55 / F ADM Date: 08/04/25 Loc: HO.ED Attending Dr: Ordering Physician: Lilly Cueto PA-C Date of Service: 08/04/25 Procedure(s): XR chest 1V Accession Number(s): [id number] cc: Lilly Cueto PA-C; Brooklyn Jalloh Reason [...] Lencho Benítez MD 08/04/2025 10:51 AM EDT Dictated By: Lencho Benítez MD Signed By: <Electronically signed by Lencho Benítez MD in OV> 08/04/25 1051 DD/ 1037 TD/TT: 08/04/25 1045 Police Captain: Procedure Note Donotuseinterpreter, Image - 08/04/[address] [address] XRay Report Signed Patient: Machelle WootenMR#: [id number] : 1970Acct:[id number] Age/Sex: 55 / FADM Date: 08/04/25 Loc: HO.ED Attending Dr: Ordering Physician: Lilly Cueto PA-C Date of Service: 08/04/25 Procedure(s): XR chest 1V Accession Number(s): [id number] cc: Lilly Cueto PA-C; Brooklyn Jalloh Reason [...] 08/04/25 1051 DD/ 1037 TD/TT: 08/04/25 1045 Police Captain: [facility] External Provider IMG XR PROCEDURES Final Result * (ABNORMAL) CBC auto differential (08/04/2025 9:33 AM EDT) White Blood Count 15.7(H) 4.8 - 10.8 X10*3/uL [facility] Red Blood Count 4.46 4.20 - 5.50 X10*6/uL [facility] Hemoglobin 12.3 12.0 - 16.0 g/dl [facility] Hematocrit 36.4(L) 37.0 - 47.0 % [facility] Mean Corpuscular Volume 81.6 80.0 - 98.0 fL [facility] Mean Corpuscular Hemoglobin 27.6 27.0 - 33.0 pg [facility] Mean Corpuscular HGB Conc 33.8 31.0 - 35.0 g/dl [facility] Red Cell Distribution Width 14.3 11.0 - 16.0 % [facility] Platelet Count 323 160 - 400 X10*3/uL [facility] Mean Platelet Volume 9.9 9.4 - 12.3 fL [facility] Neutrophils Percent Auto 71.1 45 - 73 % [facility] Imm Gran Pct Auto 0.3 0.0 - 0.4 % [facility] Lymphocytes Percent Auto 19.6(L) 20 - 40 % [facility] Monocytes Percent Auto 7.8 2 - 11 % [facility] Eosinophils Percent Auto 1.0 0 - 4 % [facility] Basophils Percent Auto 0.2 0 - 2 % [facility] NRBC Pct Auto 0.0 0.0 - 0.2 /100WBC [facility] Neutrophils Absolute Auto 11.2(H) 2.0 - 8.3 x10*3/uL [facility] Imm Gran Abs Auto 0.05(H) 0.00 - 0.03 X10*3/uL [facility] Lymphocytes Absolute Auto 3.1 1.2 - 4.9 X10*3/uL [facility] Monocytes Absolute Auto 1.2 0.1 - 1.2 X10*3/uL [facility] Eosinophils Absolute Auto 0.2 0.0 - 0.4 X10*3/uL [facility] Basophils Absolute Auto 0.0 0.0 - 0.2 X10*3/uL [facility] NRBC Abs Auto 0.000 0.0 - 0.012 X10*3/uL [facility] 08/04/2025 9:33 AM EDT 08/04/2025 9:35 AM EDT us Generic External Data Provider LAB BLOOD ORDERAB LES Final Result [facility] [address] [place] [address] [phone] * Sed Rate by Modified Tonio (08/04/2025 9:33 AM EDT) Erythrocyte Sedimentation Rate 18 0 - 20 MM/HR [facility] Comment:Patients with polycy themia and many hemoglobin abnormalitiesmay have depressed sed rates whereas patients with anemiamay have elevated sed rates. 08/04/2025 9:33 AM EDT 08/04/2025 1:17 PM EDT us Generic External Data Provider LAB BLOOD ORDERAB LES Final Result [facility] [address] [place] [address] [phone] * (ABNORMAL) Basic Metabolic Panel (08/04/2025 9:33 AM EDT) Sodium 141 135 - 145 mmol/L [facility] Potassium 4.0 3.3 - 5.1 mmol/L [facility] Chloride 106 96 - 108 mmol/L [facility] Carbon Dioxide 25 22 - 29 mmol/L [facility] Anion Gap 14 12 - 20 [facility] Urea Nitrogen (BUN) 13 9 - 16 mg/dL [facility] Creatinine, Serum 0.67 0.5 - 1.4 mg/dL [facility] Creatinine Clr Calc Pharmacy 100.3 [facility] Comment:Provided height and weight: 165.1 cm,86.001 kg.eGFR (calculated from the MDRD study equation) and eCrCl(calculated from the Cockcroft-Gault equation) are based ondifferent parameters and may not yield comparable results.If eCrCl result is absurd, please check patient'sheight/weight. Estimated Glomerular Filt Rate >60 [facility] Comment:Chronic Kidney Disea se: Estimated GFR < 60 mL/min/1.37a3Agemtu Kidney Disease: Estimated GFR < 15 mL/min/1.73m2 Glucose 123(H) 60 - 115 mg/dL [facility] Calcium 9.2 8.4 - 10.2 mg/dL [facility] 08/04/2025 9:33 AM EDT 08/04/2025 9:35 AM EDT us Generic External Data Provider LAB BLOOD ORDERAB LES Final Result [facility] [address] [place] [phone] * CTA Chest PE Protocal (07/22/2025 10:06 AM EDT) Anatomical Region Laterality Modality Body, Chest Computed Tomogra phy 07/22/2025 10:0 6 AM EDT Narrative 07/22/2025 10:51 AM EDT [address] [address] [address] Scan Report Signed Patient: Machelle Wooten MR#: [id number] : 1970 Acct:[id number] Age/Sex: 55 / F ADM Date: 07/22/25 Loc: HO.ED Attending Dr: Ordering Physician: Kaylie Choi Date of Service: 07/22/25 Procedure(s): CT angio chest PE protocol Accession Number(s): [id number] cc: Kaylie Choi; Brooklyn Jalloh Report Number: [id number]: Total DLP = 378.00 mGy-cm EXAMINATION: CT [...] 1048 DD/ 1006 TD/TT: 07/22/25 1029 Police Captain: Procedure Note Donotuseinterpreter, Image - 07/22/[address] [place] [address] [address] Scan Report Signed Patient: Machelle WootenMR#: [id number] : 1970Acct:[id number] Age/Sex: 55 / FADM Date: 07/22/25 Loc: .ED Attending Dr: Ordering Physician: Kaylie Choi Date of Service: 07/22/25 Procedure(s): CT angio chest PE protocol Accession Number(s): [id number] cc: Kaylie Choi; Brooklyn Jalloh Report Number: [id number]: Total DLP = 378.00 mGy-cm EXAMINATION: CT [...] 1048 DD/ 1006 TD/TT: 07/22/25 1029 Police Captain: [facility] External Provider IMG CT PROCEDURES Final Result * SARS-CoV-2 RNA, Influenza A/B, and RSV RNA, Ql NAAT (07/22/2025 9:11 AM EDT) Influenza A PCR NEGATIVE Negative [facility] Influenza B PCR NEGATIVE Negative [facility] Resp Syncy Virus RNA Qual PCR NEGATIVE Negative [facility] SARS COV2 PCR NEGATIVE Negative [facility] Comment:All test results mus t [...] use by authorized laboratories.Testing performed on the [employer] GeneXpert utilizingreal-time RT-PCR.All SARS CoV2 and positive influenza A/B results arereported to [facility]. 07/22/2025 9:11 AM EDT 07/22/2025 9:15 AM EDT us Generic External Data Provider LAB MICROBIOLOGY - GENERAL ORDERABLES Final Result [facility] [address] [place] [address] [phone] * (ABNORMAL) CBC (07/22/2025 9:11 AM [...] ORDERAB LES Final Result Performing Organization Address City/[facility]/ZIP Co de Phone Number [facility] [address] [place] [address] [phone] * Magnesium (07/22/2025 9:11 AM EDT) Pathologist [facility] Magnesium 1.9 1.6 - 2.6 mg/dL [facility] 07/22/2025 9:11 AM EDT 07/22/2025 9:15 AM EDT Generic External Data Provider LAB BLOOD ORDERAB LES Final Result Performing Organization Address [facility] Co de Phone Number [facility] [address] [place] [address] [phone] * (ABNORMAL) Comprehensive Metabolic Panel (07/22/2025 9:11 AM EDT) Pathologist [facility] Sodium 141 135 - 145 mmol/L [facility] [...] Kidney Disea se: Estimated GFR < 60 mL/min/1.80u0Ewhxnx Kidney Disease: Estimated GFR < 15 mL/min/1.73m2 [...] ORDERAB LES Final Result Performing Organization Address [facility] Co de Phone Number [facility] [address] [place] [phone] * Influenza B (ID NOW Rapid Molecular) (07/19/2025 1:59 PM EDT) Only the most recent of2 resultswithin the time period is included. Influenza B Negative Negative, Indeterminate [facility] Swab 07/19/2025 1:59 PM EDT Zhane Gandhi MD POINT OF CARE TEST ENTER/EDIT ORDERABLES Final Result Performing Organization Address City/[facility]/ZIP Co de Phone Number [facility] [address] [place] [phone] * Influenza A (ID NOW Rapid Molecular) (07/19/2025 1:59 PM EDT) Only the most recent of2 resultswithin the time period is included. Influenza A Negative Negative, Indeterminate [facility] Swab 07/19/2025 1:59 PM EDT Zhane Gandhi MD POINT OF CARE TEST ENTER/EDIT ORDERABLES Final Result [facility] [address] [place] [address] [phone] * POCT Rapid COVID Ag (07/19/2025 1:59 PM EDT) [facility] Rapid COVID Ag Negative [facility] Swab 07/19/2025 1:59 PM EDT Zhane Gandhi MD POINT OF CARE TEST ENTER/EDIT ORDERABLES Final Result Performing Organization Address [facility] Co de Phone Number [facility] [address] [place] [address] [phone] * POCT Rapid Covid-19 CANO ID NOW (06/26/2025 10:41 AM EDT) [facility] Coronavirus Antigen PCR Negative Negative, Indeterminate, None Detected, Invalid, Specimen unsatisfactory for evaluation, Weakly Positive, 2+ QC Media Lot # [id number] Lot# Expiration Date Swab 06/26/2025 10:4 1 AM EDT Result [facility] Brooklyn Jalloh MD POINT OF CARE TEST ENTER/EDIT ORDERABLES Final Result * POCT Rapid Strep A CANO ID NOW (06/26/2025 10:26 AM EDT) [facility] Rapid Strep A Screen Negative Negative, None Detected QC Media Lot # [id number] Lot# Expiration Date Swab 06/26/2025 10:2 6 AM EDT Result [facility] Brooklyn Jalloh MD POINT OF CARE TEST ENTER/EDIT ORDERABLES Final Result * (ABNORMAL) POCT HGB A1C (05/07/2025 12:15 PM EDT) [facility] Hemoglobin A1C 6.1(A) 4.0 - 6.0 % QC Media Lot # [id number] Blood 05/07/2025 12:1 5 PM EDT Brooklyn Jalloh MD POINT OF CARE TEST ENTER/EDIT ORDERABLES Final Result * Hepatitis C Antibody with Reflex to HCV, RNA, Quantitative, Real-Time PCR (04/02/2025 11:49 AM EDT) Hepatitis C Antibody Nonreactive Nonreactive [facility] Comment:Antibodies to HCV no t detected; does not exclude early acuteHCV infection. Blood Venous blood specimen / Unknown 04/02/2025 11:49 AM EDT 04/02/2025 1:17 PM EDT Brooklyn Jalloh MD LAB BLOOD ORDERABLES Final Res ult [facility] [address] [place] [phone] * HIV-1/2 Antigen and Antibodies, Fourth Generation, with Reflexes (04/02/2025 11:49 AM EDT) HIV AB/AG Nonreactive Nonreactive [facility] Comment:HIV-1 p24 Ag and/or HIV-1/HIV-2 Ab not detected.A test result that is nonreactive does not exclude thepossibility of exposure to or infection with HIV-1 and/orHIV-2. Nonreactive results in this assay for individualswith prior exposure to HIV-1 and/or HIV-2 may be due toantigen and antibody levels that are below the limit ofdetection of this assay.[employer] HIV Ag/Ab Combo assay result andsupplemental assay results should be interpreted inconjunction with the patient's clinical presentation,history and other laboratory results. If the results areinconsistent with clinical evidence, additional testing issuggested to confirm the result. Blood Venous blood specimen / Unknown 04/02/2025 11:49 AM EDT 04/02/2025 1:17 PM EDT Brooklyn Jalloh MD LAB BLOOD ORDERABLES Final Res ult [facility] [address] [place] [phone] * Pap Smear (03/30/2025 12:07 PM EDT) Swab 03/30/2025 12:0 7 PM EDT 03/31/2025 6:00 AM EDT Narrative [facility] - 04/02/2025 12:35 PM EDT ----- ------- Name: Machelle Wooten Age/Sex: 55/F : 1970 Unit#: [id number] Attend Dr: KEILY FOREMAN CNM Re03/30/25 Status: [facility] REF Location: [facility] Disch: ----- ------- SPEC : [id number] RECD: 03/31/25 STATUS: ERNESTO HERNANDEZ NUM: [id number] KRYSTA: 03/30/25-[address]: KEILY FOREMAN CNM ENTERED: 03/31/2506 SP TYPE: Pap Smr OT DR: ORDERED: [...] ------- END OF REPORT us Keily Foreman [facility] CYTOLOGY ORDERABLES F inal Result [facility] [address] [place] [phone] * HPV DNA, Low/High Risk (03/30/2025 12:00 AM EDT) HPV High Risk Negative Negative [facility] HPV Genotype 16 Negative Negative [facility] HPV Genotype 18 Negative Negative [facility] Comment:HPV testing performe d at (CLIA#[id number]), [address] [place] [address].Testing for HPV was performed using the [employer]system. The presence of HPV in the female [...] CNM LAB BLOOD ORDERABLES Julianne l Result [facility] [address] [place] [phone] * BI US Breast Limited Right (08/18/2024) Anatomical Region Laterality Modality Breast Right Ultrasound us Lilian Holcomb HOT KNIFE CUTTER IMG US PROCEDURES Final Result * (ABNORMAL) Hm Colonoscopy (05/13/2023) Colonoscopy Abnormal( A) Normal Comment:see scanned report 05/13/2023 us Brooklyn Jalloh MD HEALTH MAINTENANCE Final Resul [...] factors. LDL-C is now calculated using the Mitch-Noe calculation, which is a validated novel method providing better accuracy than the Friedewald equation in the estimation of LDL-C. Mitch SHORE et al. ARACELI. 2013;310(19): 6238-6953 (http://education.GreatCall.damntheradio/faq/WSX677) Non-HDL Cholesterol 117 <130 mg/dL (calc) CONVERTED [...] Most Recently Relevant to Health Maintenance Insurance [facility] < [address] [facility] * Guarantor: Machelle Wooten Account Type Relation to Patient Date of Phone Billing Address Personal/Family Self [place], [place] Care Teams Bilingual Medical Assistant Relationship Specialty Start Date End Date Brooklyn Jalloh MD [address] [place] [phone] PCP - General Family Medicine 07/17/21
--- OUTSIDE RECORDS SUMMARY | 2025-09-24 11:19 | XMS_ITS | Encounter Summary ---
Author Organization [employer] Address [address] [facility] 7t [place] [address] Care Team Providers Care Battery Parts Assembler Name Role Phone Brooklyn Jalloh MD Primary Care Provider [phone] Reason for Visit * Reason Comments Med Refill Encounter Details Date Type Department Care Team (Late Contact Info) Description 07/29/2023 Refill [facility] [address] [place], [place] [phone] Brooklyn Jalloh MD [address] [place], [place] [phone] Social History Tobacco Use Types Packs/Day Years [...] Description 10/20/2025 1:30 PM EST Office Visit [facility] ADULT DENTAL [address] [place] [address] Delaney Bryson [address] [place] [address] 10/29/2025 11:15 AM EST Office Visit [facility] MEDICINE [address] [place] [address] Brooklyn Jalloh MD [address] [place] [address] documented as of this encounter Visit Diagnoses Not on filedocumented in this encounter Additional Health Concerns Assessment Noted Time PHQ-9 Depression Total Score: 6 02/05/20 23 11:27 AM EDT documented as of this encounter Care Teams Battery Parts Assembler Relationship Specialty Start Date End Date Brooklyn Jalloh MD [address] [place] [address] PCP - General Family Medicine 07/17/21 documented as of this encounter
--- OUTSIDE RECORDS SUMMARY | 2025-09-24 11:19 | XMS_ITS | Encounter Summary ---
Author Organization [employer] Address [address] [facility] 7t [place] [address] Care Team Providers Care Traveling Repair Accountant Name Role Phone Brooklyn Jalloh MD Primary Care Provider [phone] Reason for Visit * Reason Onset Date Comments Referral 05/10/2023 Encounter Details Date Type Department Care Team ([facility] st Contact Info) Description 05/10/2023 Telephone [facility] [address] [place], [place] [phone] Brooklyn Jalloh MD [address] [place] [address] Referral Social History Tobacco Use Types Packs/Day [...] to her toenails. Please contact pt at [phone] Greek Speaker documented in this encounter Plan of Treatment Upcoming Encounters Date Type Department Care Team (Late st Contact Info) Description 10/20/2025 1:30 PM EST Office Visit [facility] ADULT [facility] [address] [place] [address] BraydonDavidDelaney [address] [place] [address] 10/29/2025 11:15 AM EST Office Visit [facility] [address] [place] [address] Brooklyn Jalloh MD [address] [place] [address] documented as of this encounter Visit Diagnoses Not on filedocumented in this encounter Additional Health Concerns Assessment Noted Time PHQ-9 Depression Total Score: 6 02/05/20 23 11:27 AM EDT documented as of this encounter Care Teams Traveling Repair Accountant Relationship Specialty Start Date End Date Brooklyn Jalloh MD [address] [place] [phone] PCP - General Family Medicine 07/17/21 documented as of this encounter
--- OUTSIDE RECORDS SUMMARY | 2025-09-24 11:19 | XMS_ITS | Encounter Summary ---
Author Organization [employer] Address [address] [facility] 7t [place] [address] Care Team Providers Care Barrel Rib Matting Machine Operator Name Role Phone Brooklyn Jalloh MD Primary Care Provider [phone] Reason for Visit * Reason Onset Date Comments Appointment Request 03/19/2025 Encounter Details Date Type Department Care Team ([facility] st Contact Info) Description 03/19/2025 Telephone [facility] MEDICINE [address] [place] [address] Brooklyn Jalloh MD [address] [place] [address] Appointment Request Social History Tobacco Use Types [...] Description 10/20/2025 1:30 PM EST Office Visit [facility] ADULT DENTAL [address] [place] [address] Braydon, Delaney [address] [place] [address] 10/29/2025 11:15 AM EST Office Visit [facility] MEDICINE [address] [place] [address] Brooklyn Jalloh MD [address] [place] [address] documented as of this encounter Visit Diagnoses Not on filedocumented in this encounter Additional Health Concerns Assessment Noted Time PHQ-9 Depression Total Score: 5 03/16/20 24 11:45 AM EDT documented as of this encounter Care Teams Barrel Rib Matting Machine Operator Relationship Specialty Start Date End Date Brooklyn Jalloh MD [address] [place] [address] PCP - General Family Medicine 07/17/21 documented as of this encounter
--- OUTSIDE RECORDS SUMMARY | 2025-09-24 11:19 | XMS_ITS | Encounter Summary ---
Author Organization [employer] Address [address] [facility] 7t [place] [address] Care Team Providers Care State Archivist Name Role Phone Brooklyn Jalloh MD Primary Care Provider [phone] Encounter Details Date Type Department Care Team (Late st Contact Info) Description 07/23/2023 Abstract [facility] [address] [place] [address] [phone] Brooklyn Jalloh MD [address] [place] [phone] Social History Tobacco Use Types Packs/Day Years [...] Description 10/20/2025 1:30 PM EST Office Visit [facility] ADULT DENTAL [address] [place] [address] [phone] Delaney Bryson [address] [place] [address] 10/29/2025 11:15 AM EST Office Visit [facility] MED[facility]INE [address] [place] [address] Brooklyn Jalloh MD [address] [place] [address] documented as of this encounter Visit Diagnoses Not on filedocumented in this encounter Additional Health Concerns Assessment Noted Time PHQ-9 Depression Total Score: 6 02/05/20 23 11:27 AM EDT documented as of this encounter Care Teams State Archivist Relationship Specialty Start Date End Date Brooklyn Jalloh MD [address] [place] [address] PCP - General Family Medicine 07/17/21 documented as of this encounter
--- OUTSIDE RECORDS SUMMARY | 2025-09-24 11:19 | XMS_ITS | Data Portability ---
Author Organization [place] [facility] Address [address] [place] [address] [address] Assessment Encounter Date Assessment Date Assessment LastModified [...] oil 0.01 % ear drops [address] [facility], [address] [place], [place], [phone], 09/22/2025 10:22:46 fluocinol one acetonide oil 0.01 % ear drops [address] [facility], [address] [place], [place], [phone], 05/05/2025 09:22:39 Patient TargetsNo targets recorded. Patient [...] Address Organization Details Recorded Time Bilateral tinnitus 18641574825 02 Active 2022 Tinnitus, bilateral ; Note: Date Diagnosed : 04/18/2023 4:24 PM (H93.13) Not Available [facility] 4 03:26:19 Sensorine ural hearing loss of bilateral ears 032151565 Active 2022 Sensorine ural hearing loss, bilateral ; Note: Date Diagnosed : 04/18/2023 2:04 PM (H90.3) Not Available [facility] 4 03:26:18 Itching of skin 645704736 Active 2022 Other pruritus; Note: Date Diagnosed : 04/18/2023 4:24 PM (L29.8) Not Available [facility] 4 03:26:18 Problem Notes None recorded. Procedures Surgical History Date Name Laterality Status Provider Name and Address Organization Details Recorded Time 01/06/2025 Air & Speech Audio with Tymps - 82404, 18556 & 02587 completed NAJMA DENIS, [facility] [address] [facility],[address], [address], [facility] - [facility] 01/06/2025 09:33:21 Imaging Results None recorded. Procedure Notes None recorded. Medical Equipment None Reported. Allergies Allergen ID Allergen Name Allergen Category Reaction Reaction Severity Criticality Documentation Date Start Date Code Code System Note Provider Name and Address Organization Details Recorded Time 396776 Fish (substanc e) food,medi cation Not available Not available Not available 04/07/2024 97454 1005 SNOMED React ion: Hives , Rash; Not Available [facility] 4 01:27:00 Medications Name Sig Start [...] 800 mg tablet active Medicatio n ID: [id number] Br and Name: ibuprofen Send Method: E-Prescri bed Subs Allowed: subs OK Medica tionGener icName: ibuprofen Not Available Not Available Not Available fluconazol e 150 mg tablet TAKE 1 TABLET BY MOUTH FOR 1 DOSE active Not Available Not Available No t Available senna 8.6 mg tablet active Medicatio n ID: [id number] Br and Name: senna Sen d Method: [...] Updated DateTime 12/25/2024 165.1 cm 25.8 kg/m2 35676.82 g [facility] 12/25/2024 11:38:16 Date Recorded Body height Body mass index (BMI) Body weight Provider Name and Address Organization Details Last Updated DateTime 06/17/2025 165.1 cm 25.8 kg/m2 02814.82 g [facility] 06/17/2025 11:25:03 Social History None recorded. Functional Status None recorded. Mental Status None recorded. Family History Nothing Reported. Medical History No medical history recorded. Gynecological HistoryNo gynecological history recorded. Obstetrics History GPAL:G 0 P 0 0 0 0 Past Encounters Encounter ID Performer Location Encounter Start Date Encounter Closed Date Diagnosis/Indication Diagnosis SNOMED-CT Code Diagnosis ICD10 Code Diagnosis IMO Codes Diagnosis Note [id number] IMMANUEL CARCAMO PA-C [facility] [address] [address] 12/25/2024 11:28:54 12/25/2024 11:54:46 Itching of skin 667649414 L29.89 Sensorineu ral hearing loss of bilateral ears 995131415 H90.3 Bilateral tinnitus 43245 27280 102 H93.13 [id number] PATRIZIA FERREIRA [facility] [address] [address] 01/06/2025 09:20:17 01/06/2025 09:38:10 Sensorineural hearing loss of bilateral ears 817639432 H90.3 Audiologic al evaluation results: Normal sloping to mild sensorineu ral hearing loss with excellent word recognitio n, bilaterall y. Tympanomet ry:Right Ear:Type ALeft Ear:Type A [id number] LIOR KHANNA PA-C [facility] [address] [address] 06/17/2025 11:04:14 06/17/2025 11:41:18 Itching of skin 423932343 L29.89 Sensorineu ral hearing loss of bilateral ears 446044773 H90.3 Health Concerns Section Related Observation LastModified by Organization Detai ls LastModified Time None Recorded Concern Status LastModified by Organization Details LastModified Time None Recorded Advance Directives Directive None Recorded Payers Insurance Date Sequence Insurance Name Policy Number Policy Gordon Covered Member ID Gordon Member ID Guarantor Name 03/02/2025 1 [facility] [place] ([place]IC[place]PL[place]/ADV ANTAGE - HMO) Machelle Barroso [id number] Machelle Barroso 08/16/2025 1 [facility] - DOS ON OR AFTER 2023 - ONE C[employer] (MEDICARE REPLACEMENT/ADV ANTAGE - HMO) Machelle Barroso [id number] Machelle Barroso Notes Date Note Type Note [...] itchier when she is anxious. Immanuel nguyen [place] [facility] 12/25/2024 12:24:29 01/06/2025 text/html Audiological Evaluation HPIReported by PatientHearing LossFor hearing loss perceived, patient reportsgradual onset. PATRIZIA FERREIRA [address] [facility],[address], [address], [facility] 01/06/2025 09:35:45 06/17/2025 text/html ROS as noted [...] stable HF SNHL JAIMEE SNOW MD [address] [facility], [place], [address], [facility] 06/18/2025 14:16:14 OBGyn Episode No OBEpisode recorded.
--- OUTSIDE RECORDS SUMMARY | 2025-09-24 11:19 | XMS_ITS | Encounter Summary ---
Author Organization [employer] Address [address] [facility] 7t [place] [address] Care Team Providers Care Shank Archer Name Role Phone Brooklyn Jalloh MD Primary Care Provider [phone] Encounter Details Date Type Department Care Team ([facility] st Contact Info) Description 05/21/2025 Telephone [facility] MEDICINE [address] [place], [place] [phone] Brooklyn Jalloh MD [address] [place] [address] Social History Tobacco Use Types Packs/Day Years [...] Description 10/20/2025 1:30 PM EST Office Visit [facility] ADULT DENTAL [address] [place] [address] Braydon, Delaney [address] [place] [address] 10/29/2025 11:15 AM EST Office Visit [facility] MED[facility] [address] [place] [address] Brooklyn Jalloh MD [address] [place] [address] documented as of this encounter Visit Diagnoses Not on filedocumented in this encounter Additional Health Concerns Assessment Noted Time PHQ-9 Depression Total Score: 14 025 12:17 PM EDT documented as of this encounter Care Teams Shank Archer Relationship Specialty Start Date End Date Brooklyn Jalloh MD [address] [place] [address] PCP - General Family Medicine 07/17/21 documented as of this encounter
--- OUTSIDE RECORDS SUMMARY | 2025-09-24 11:20 | XMS_ITS | Encounter Summary ---
Author Organization [employer] Address 75 [facility] 7t [place] [address] Care Team Providers Care Manager Of Marketing Name Role Phone Brooklyn Jalloh MD Primary Care Provider [phone] Encounter Details Date Type Department Care Team (Late st Contact Info) Description 08/24/2025 Orders Only [facility] MEDICINE [address] [place] [address] Brooklyn Jalloh MD 230 [place] [address] Social History Tobacco Use Types Packs/Day Years [...] Description 10/20/2025 1:30 PM EST Office Visit [facility] ADULT DENTAL [address] [place] [address] Braydon, Delaney [address] [place] [address] 10/29/2025 11:15 AM EST Office Visit [facility] MEDICINE [address] [place] [address] Brooklyn Jalloh MD [address] [place] [address] documented as of this encounter Visit Diagnoses Not on filedocumented in this encounter Additional Health Concerns Assessment Noted Time PHQ-9 Depression Total Score: 19 025 11:41 AM EDT documented as of this encounter Care Teams Manager Of Marketing Relationship Specialty Start Date End Date Brooklyn Jalloh MD [address] [place] [address] PCP - General Family Medicine 07/17/21 documented as of this encounter
--- OUTSIDE RECORDS SUMMARY | 2025-09-24 11:20 | XMS_ITS | Encounter Summary ---
Author Organization [employer] Address 75 [facility] 7t [place] [address] Care Team Providers Care Manager R D Name Role Phone Brooklyn Jalloh MD Primary Care Provider [phone] Reason for Visit * Reason Comments Med Refill Encounter Details Date Type Department Care Team ([facility] st Contact Info) Description 08/18/2025 Refill [facility] MEDICINE [address] [place] [address] Brooklyn Jalloh MD 230 [place] [address] Cervical spondylosis; Degeneration of lumbar intervertebral disc [...] Description 10/20/2025 1:30 PM EST Office Visit [facility] ADULT DENTAL [address] [place] [address] Braydon, Delaney [address] [place] [address] 10/29/2025 11:15 AM EST Office Visit [facility] MEDICINE [address] [place] [address] Brooklyn Jalloh MD [address] [place] [address] documented as of this encounter Visit Diagnoses Diagnosis Cervical spondylosis Cervical spondylosis without myelopathy Degeneration of lumbar intervertebral disc Degeneration of lumbar or lumbosacral intervertebral disc documented in this encounter Additional Health Concerns Assessment Noted Time PHQ-9 Depression Total Score: 19 025 11:41 AM EDT documented as of this encounter Care Teams Manager R D Relationship Specialty Start Date End Date Brooklyn Jalloh MD [address] [place] [address] PCP - General Family Medicine 07/17/21 documented as of this encounter
--- OUTSIDE RECORDS SUMMARY | 2025-09-24 11:20 | XMS_ITS | Encounter Summary ---
Author Organization [email or web address] Address 75 [facility] 7t [place] [address] Care Team Providers Care Mechanical Assembler Name Role Phone Brooklyn Jalloh MD Primary Care Provider [phone] Reason for Visit * Reason Comments Med Refill Encounter Details Date Type Department Care Team ([facility] st Contact Info) Description 08/23/2025 Refill [facility] MEDICINE [address] [place] [address] Brooklyn Jalloh MD [address] [place] [address] Social History Tobacco Use Types Packs/Day Years [...] Visit [facility] ADULT DENTAL [address] [place] [address] David Brysonaris [address] [place] [address] 10/29/2025 11:15 AM EST Office Visit [facility] MEDICINE [address] [place] [address] Brooklyn Jalloh MD [address] [place] [address] documented as of this encounter Visit Diagnoses Not on filedocumented in this encounter Additional Health Concerns Assessment Noted Time PHQ-9 Depression Total Score: 19 025 11:41 AM EDT documented as of this encounter Care Teams Mechanical Assembler Relationship Specialty Start Date End Date Brooklyn Jalloh MD [address] [place] [address] PCP - General Family Medicine 07/17/21 documented as of this encounter
--- OUTSIDE RECORDS SUMMARY | 2025-09-24 11:20 | XMS_ITS | Encounter Summary ---
Author Organization [employer] [facility] Address 75 [facility] 7t [place] [address] Care Team Providers Care Air Intelligence Officer Name Role Phone Brooklyn Jalloh MD Primary Care Provider [phone] Encounter Details Date Type Department Care Team (Latest Contact Info) Description 05/12/2019 Abstract [facility] CONVERSIONS Dental, Provider, DDS Social [...] Care Team ( st Contact Info) Description 10/20/2025 1:30 PM EST Office Visit [facility] ADULT DENTAL 230 [place] [address] Braydon, Delaney [address] [place] [address] 10/29/2025 11:15 AM EST Office Visit [facility] MEDICINE 230 [place] [address] Brooklyn Jalloh MD 230 [place] [address] documented as of this encounter Visit Diagnoses Not on filedocumented in this encounter Care Teams Air Intelligence Officer Relationship Specialty Start Date End Date Brooklyn Jalloh MD [address] [place] [address] PCP - General Family Medicine 07/17/21 documented as of this encounter
--- OUTSIDE RECORDS SUMMARY | 2025-09-24 11:20 | XMS_ITS | Encounter Summary ---
Author Organization [employer] Address 75 [facility] 7t [place] [address] Care Team Providers Care Sprinkler Installer Name Role Phone Brooklyn Jalloh MD Primary Care Provider [phone] Reason for Visit * Reason Comments Med Refill Encounter Details Date Type Department Care Team ([facility] st Contact Info) Description 08/20/2025 Refill [facility] MEDICINE [address] [place] [address] Brooklyn Jalloh MD 230 [place] [address] Social History Tobacco Use Types Packs/Day Years [...] Description 10/20/2025 1:30 PM EST Office Visit [facility] ADULT DENTAL [address] [place] [address] David Brysonaris [address] [place] [address] 10/29/2025 11:15 AM EST Office Visit [facility] MEDICINE [address] [place] [address] Brooklyn Jalloh MD [address] [place] [address] documented as of this encounter Visit Diagnoses Not on filedocumented in this encounter Additional Health Concerns Assessment Noted Time PHQ-9 Depression Total Score: 19 025 11:41 AM EDT documented as of this encounter Care Teams Sprinkler Installer Relationship Specialty Start Date End Date Brooklyn Jalloh MD [address] [place] [address] PCP - General Family Medicine 07/17/21 documented as of this encounter
--- OUTSIDE RECORDS SUMMARY | 2025-09-24 11:20 | XMS_ITS | Encounter Summary ---
Author Organization [employer] Address 75 [facility] 7t [place] [address] Care Team Providers Care Middle School Coach Name Role Phone Brooklyn Jalloh MD Primary Care Provider [phone] Reason for Referral * Consultation (Routine) - Closed Specialty Diagnoses / Procedures Referred By Tenzin ahumada Referred To Contact Orthopaedic Surgery Diagnoses Primary osteoarthritis of both knees Brooklyn Jalloh MD [address] [place] [address] Phone: tel: fax: [facility] [address] [place] [address] Phone: tel: Referral ID Status Reason Start Date Expiration Date V isits Requested Visits Authorized [id number] Closed Specialty Services Required 02/18/2024 02/17/2025 1 1 Encounter Details Date Type Department Care Team (Late st Contact Info) Description 02/18/2024 Orders Only [facility] MEDICINE [address] [place] [address] Brooklyn Jalloh MD [address] [place] [address] Primary osteoarthritis of both knees (Primary Dx) [...] Description 10/20/2025 1:30 PM EST Office Visit [facility] ADULT DENTAL [address] [place] [address] Delaney Bryson 230 [place] [address] 10/29/2025 11:15 AM EST Office Visit [facility] MEDICINE [address] [place] [address] Brooklyn Jalloh MD 230 [place] [address] Scheduled Referrals Name Type Priority Associated Diagnoses [...] PM EDT Narrative 03/09/2024 2:27 PM EDT [address] [address] XRay Report Signed Patient: Machelle Wooten MR#: [id number] : 1970 Acct:[id number] Age/Sex: 54 / F ADM Date: 03/09/24 Loc: HO.ED Attending Dr: Ordering Physician: Zack Lainez Date of Service: 03/09/24 Procedure(s): XR chest 2V Accession Number(s): [id number] cc: Brooklyn Jalloh; Zack Lainez EXAMINATION: XR [...] in OV> 03/09/24 1424 DD/ 1408 TD/TT: Time Study Technologist: CLEO Procedure Note Donotuseinterpreter, Image - 03/09/2024 [facility] [address] [place] [address] XRay Report Signed Patient: Machelle WootenMR#: [id number] : 1970Acct:[id number] Age/Sex: 54 / FADM Date: 03/09/24 Loc: .ED Attending Dr: Ordering Physician: Zack Lainez Date of Service: 03/09/24 Procedure(s): XR chest 2V Accession Number(s): [id number] cc: Brooklyn Jalloh; Zack Lainez EXAMINATION: XR [...] DO inOV> 03/09/24 1424 DD/ 1408 TD/TT: Time Study Technologist: CLEO [facility] External Provider IMG XR PROCEDURES Edited Result - Final documented in this encounter Visit Diagnoses Diagnosis Primary osteoarthritis of both knees- Primary documented in this encounter Additional Health Concerns Assessment Noted Time PHQ-9 Depression Total Score: 6 02/05/20 23 11:27 AM EDT documented as of this encounter Care Teams Middle School Coach Relationship Specialty Start Date End Date Brooklyn Jalloh MD [address] [place] [address] PCP - General Family Medicine 07/17/21 documented as of this encounter
--- OUTSIDE RECORDS SUMMARY | 2025-09-24 11:20 | XMS_ITS | Encounter Summary ---
Author Organization [employer] Address 75 [facility] 7t [place] [address] Care Team Providers Care Rougher Helper Name Role Phone Brooklyn Jalloh MD Primary Care Provider [phone] Encounter Details Date Type Department Care Team (Late Contact Info) Description 11/12/2022 Orders Only [facility] MEDICINE [address] [place] [address] Brooklyn Jalloh MD [address] [place] [address] Social History Tobacco Use Types Packs/Day Years [...] Description 10/20/2025 1:30 PM EST Office Visit [facility] ADULT DENTAL [address] [place] [address] Delaney Bryson 230 [place] [address] 10/29/2025 11:15 AM EST Office Visit [facility] MEDICINE [address] [place] [address] Brooklyn Jalloh MD [address] [place], [place] [phone] documented as of this encounter Visit Diagnoses Not on filedocumented in this encounter Care Teams Rougher Helper Relationship Specialty Start Date End Date Brooklyn Jalloh MD [address] [place], [place] [phone] PCP - General Family Medicine 07/17/21 documented as of this encounter
--- OUTSIDE RECORDS SUMMARY | 2025-09-24 11:20 | XMS_ITS | Encounter Summary ---
Author Organization [employer] Address 75 [facility] 7t [place] [address] Care Team Providers Care General Expeditor Name Role Phone Brooklyn Jalloh MD Primary Care Provider [phone] Reason for Visit * Reason Comments Med Refill Encounter Details Date Type Department Care Team ([facility] st Contact Info) Description 08/05/2025 Refill [facility] MEDICINE [address] [place] [address] Brooklyn Jalloh MD [address] [place] [address] Social History Tobacco Use Types Packs/Day Years [...] 1:30 PM EST Office Visit [facility] ADULT DENTAL [address] [place] [address] David Brysonaris [address] [place] [address] 10/29/2025 11:15 AM EST Office Visit [facility] MEDICINE [address] [place] [address] Brooklyn Jalloh MD [address] [place] [address] documented as of this encounter Visit Diagnoses Not on filedocumented in this encounter Additional Health Concerns Assessment Noted Time PHQ-9 Depression Total Score: 14 025 12:17 PM EDT documented as of this encounter Care Teams General Expeditor Relationship Specialty Start Date End Date Brooklyn Jalloh MD [address] [place] [address] PCP - General Family Medicine 07/17/21 documented as of this encounter
--- OUTSIDE RECORDS SUMMARY | 2025-09-24 11:20 | XMS_ITS | Encounter Summary ---
Author Organization [employer] Address 75 [facility] 7t [place] [address] Care Team Providers Care Onyx Chip Terrazzo Worker Name Role Phone Brooklyn Jalloh MD Primary Care Provider [phone] Encounter Details Date Type Department Care Team (Late st Contact Info) Description 12/22/2023 Orders Only [facility] MEDICINE [address] [place], [place] [phone] Brooklyn Jalloh MD [address] [place], [place] [phone] Bronchitis (Primary Dx) Social History Tobacco Use [...] Description 10/20/2025 1:30 PM EST Office Visit [facility] ADULT DENTAL [address] [place] [address] Braydon, Delaney [address] [place] [address] 10/29/2025 11:15 AM EST Office Visit [facility] MEDICINE [address] [place] [address] Brooklyn Jalloh MD [address] [place] [address] documented as of this encounter Procedures Procedure Name Priority Date/Time Associated Diagnosis Comments CBC WITH AUTO DIFFERENTIAL Routine 12/25/2023 12:28 PM EST Bronchitis documented in this encounter Results * (ABNORMAL) CBC auto differential (12/25/2023 12:28 PM EST) White Blood Count 15.4(H) 4.8 - 10.8 X10*3/uL [facility] Red Blood Count 5.11 4.20 - 5.50 X10*6/uL [facility] Hemoglobin 13.7 12.0 - 16.0 g/dl [facility] Hematocrit 42.6 37.0 - 47.0 % [facility] Mean Corpuscular Volume 83.4 80.0 - 98.0 fL [facility] Mean Corpuscular Hemoglobin 26.8(L) 27.0 - 33.0 pg [facility] Mean Corpuscular HGB Conc 32.2 31.0 - 35.0 g/dl [facility] Red Cell Distribution Width 13.9 11.0 - 16.0 % [facility] Platelet Count 442(H) 160 - 400 X10*3/uL [facility] Mean Platelet Volume 10.1 9.4 - 12.3 fL [facility] Neutrophils Percent Auto 71.8 45 - 73 % [facility] Imm Gran Pct Auto 0.5(H) 0.0 - 0.4 % [facility] Lymphocytes Percent Auto 20.8 20 - 40 % [facility] Monocytes Percent Auto 6.7 2 - 11 % [facility] Eosinophils Percent Auto 0.1 0 - 4 % [facility] Basophils Percent Auto 0.1 0 - 2 % [facility] NRBC Pct Auto 0.0 0.0 - 0.2 /100WBC [facility] Neutrophils Absolute Auto 11.0(H) 2.0 - 8.3 x10*3/uL [facility] Imm Gran Abs Auto 0.08(H) 0.00 - 0.03 X10*3/uL [facility] Lymphocytes Absolute Auto 3.2 1.2 - 4.9 X10*3/uL [facility] Monocytes Absolute Auto 1.0 0.1 - 1.2 X10*3/uL [facility] Eosinophils Absolute Auto 0.0 0.0 - 0.4 X10*3/uL [facility] Basophils Absolute Auto 0.0 0.0 - 0.2 X10*3/uL [facility] NRBC Abs Auto 0.000 0.0 - 0.012 X10*3/uL [facility] Blood Venous blood specimen / Unknown 12/25/2023 12:28 PM EST 12/25/2023 1:09 PM EST Brooklyn Jalloh MD LAB BLOOD ORDERABLES Final Res ult [facility] [address] [place] [address] [phone] documented in this encounter Visit Diagnoses Diagnosis Bronchitis- Primary Bronchitis, not specified as acute or chronic documented in this encounter Additional Health Concerns Assessment Noted Time PHQ-9 Depression Total Score: 6 02/05/20 23 11:27 AM EDT documented as of this encounter Care Teams Onyx Chip Terrazzo Worker Relationship Specialty Start Date End Date Brooklyn Jalloh MD [address] [place] [address] PCP - General Family Medicine 07/17/21 documented as of this encounter
--- OUTSIDE RECORDS SUMMARY | 2025-09-24 11:20 | XMS_ITS | Encounter Summary ---
Author Organization [employer] Address 75 [facility] 7t [place] [address] Care Team Providers Care Slipman Name Role Phone Brooklyn Jalloh MD Primary Care Provider [phone] Encounter Details Date Type Department Care Team (Late st Contact Info) Description 03/10/2024 Orders Only [facility] MEDICINE [address] [place], [place] [phone] Brooklyn Jalloh MD [address] [place] [address] Social History Tobacco Use Types Packs/Day Years [...] Description 10/20/2025 1:30 PM EST Office Visit [facility] ADULT DENTAL [address] [place], [place] [phone] Braydon, Delaney [address] [place] [address] 10/29/2025 11:15 AM EST Office Visit [facility] MEDICINE [address] [place] [address] Brooklyn Jalloh MD [address] [place] [address] documented as of this encounter Visit Diagnoses Not on filedocumented in this encounter Additional Health Concerns Assessment Noted Time PHQ-9 Depression Total Score: 6 02/05/20 23 11:27 AM EDT documented as of this encounter Care Teams Slipman Relationship Specialty Start Date End Date Brooklyn Jalloh MD [address] [place] [address] PCP - General Family Medicine 07/17/21 documented as of this encounter
--- OUTSIDE RECORDS SUMMARY | 2025-09-24 11:20 | XMS_ITS | Encounter Summary ---
Author Organization [employer] [facility] Address 75 [facility] 7t [place] [address] Care Team Providers Care Sand Mill Operator Core Sand Name Role Phone Brooklyn Jalloh MD Primary Care Provider [phone] Encounter Details Date Type Department Care Team (Latest Contact Info) Description 04/06/2021 Abstract [facility] CONVERSIONS Dental, Provider, DDS Social History [...] Description 10/20/2025 1:30 PM EST Office Visit [facility] ADULT DENTAL [address] [place] [address] Braydon, Delaney [address] [place] [address] 10/29/2025 11:15 AM EST Office Visit [facility] MEDICINE [address] [place] [address] Brooklyn Jalloh MD [address] [place] [address] documented as of this encounter Visit Diagnoses Not on filedocumented in this encounter Care Teams Sand Mill Operator Core Sand Relationship Specialty Start Date End Date Brooklyn Jalloh MD [address] [place] [address] PCP - General Family Medicine 07/17/21 documented as of this encounter
--- OUTSIDE RECORDS SUMMARY | 2025-09-24 11:20 | XMS_ITS | Encounter Summary ---
Author Organization [employer] [facility] Address 75 [facility] 7t [place] [address] Care Team Providers Care Custody Assistant Name Role Phone Brooklyn Jalloh MD Primary Care Provider [phone] Encounter Details Date Type Department Care Team (Latest Contact Info) Description 06/27/2022 Abstract [facility] CONVERSIONS Dental, Provider, DDS Social History Tobacco [...] Office Visit [facility] ADULT DENTAL [address] [place] [address] Braydon, Delaney [address] [place] [address] 10/29/2025 11:15 AM EST Office Visit [facility] MEDICINE [address] [place] [address] Brooklyn Jalloh MD [address] [place] [address] documented as of this encounter Visit Diagnoses Not on filedocumented in this encounter Care Teams Custody Assistant Relationship Specialty Start Date End Date Brooklyn Jalloh MD [address] [place] [address] PCP - General Family Medicine 07/17/21 documented as of this encounter
== END 2025-09-24 10:31 | disposition home or self-care (01) ==
LOC: HO.HPS 10:03
PROVIDERS: PCP General Practice; Visit Provider Internal Medicine Pulmonary Disease
DX: J45.909 Unspecified asthma, uncomplicated (principal); R05.9 Cough, unspecified; G47.33 Obstructive sleep apnea (adult) (pediatric); J30.9 Allergic rhinitis, unspecified
CPT/HCPCS: 99214; G2211

== ENCOUNTER → 2025-09-24 10:02 | Outpatient (BNVA) | payer OTHER, SELFPAY | PROVIDERS: PCP General Practice; Visit Provider Internal Medicine Pulmonary Disease | DX: G47.33 Obstructive sleep apnea (adult) (pediatric) (principal); J45.909 Unspecified asthma, uncomplicated; R05.9 Cough, unspecified | CPT/HCPCS: 99212 ==

== ENCOUNTER 2025-10-01 14:01 | Outpatient (REF) | payer OTHER, SELFPAY ==
--- NOTE | ~2025-10-01 | XR_ITS ---
EXAMINATION: X-ray left knee X-ray right knee CLINICAL INFORMATION: Status post fall. COMPARISON: Right knee 02/16/2024. Left knee 07/22/2020 TECHNIQUE: Left knee 4 views. Right knee 4 views. FINDINGS: Left knee: Mild-moderate medial compartment arthritis. No visible acute fracture, dislocation or suspicious bony lesion. No significant effusion. No abnormal soft tissue calcification. Right knee: Mild-moderate medial compartment arthritis. No visible acute fracture, dislocation or suspicious bony lesion. Small effusion. Small focus of chondrocalcinosis or loose body in the lateral compartment. XR/XR knee LT 4V IMPRESSION: Left knee: No acute findings. Mild-moderate medial compartment arthritis. Right knee: No visible acute fracture. Small effusion. Mild-moderate medial compartment arthritis Electronically signed by: Remington Nguyen MD 10/01/2025 02:41 PM IRIS
--- NOTE | ~2025-10-01 | XR_ITS ---
EXAMINATION: X-ray left knee X-ray right knee CLINICAL INFORMATION: Status post fall. COMPARISON: Right knee 02/16/2024. Left knee 07/22/2020 TECHNIQUE: Left knee 4 views. Right knee 4 views. FINDINGS: Left knee: Mild-moderate medial compartment arthritis. No visible acute fracture, dislocation or suspicious bony lesion. No significant effusion. No abnormal soft tissue calcification. Right knee: Mild-moderate medial compartment arthritis. No visible acute fracture, dislocation or suspicious bony lesion. Small effusion. Small focus of chondrocalcinosis or loose body in the lateral compartment. XR/XR knee RT 4V IMPRESSION: Left knee: No acute findings. Mild-moderate medial compartment arthritis. Right knee: No visible acute fracture. Small effusion. Mild-moderate medial compartment arthritis Electronically signed by: Remington Nguyen MD 10/01/2025 02:41 PM IRIS
--- OUTSIDE RECORDS SUMMARY | 2025-10-01 10:40 | XMS_ITS | Encounter Summary ---
Author Organization [employer] Address 75 [facility] 7t [place] [address] Care Team Providers Care Hand Rounder Name Role Phone Brooklyn Jalloh MD Primary Care Provider [phone] Reason for Referral * Consultation (Urgent) - Pending Review Specialty Diagnoses / Procedures Referred By Tenzin ahumada Referred To Contact Orthopaedic Surgery Diagnoses Fall, initial encounter Shayy Ashraf NP [address] [place] [address] Phone: tel: fax: Referral ID Status Reason Start Date Expiration Date Visits Requested Visits Authorized [id number] Pending Review Specialty Services Required 10/01/2025 10/01/2026 1 1 Reason for Visit * Reason Comments Fall Encounter Details Date Type Department Care Team (Latest Contact Info) Description 10/01/2025 10:40 AM EST Office Visit [facility] [address] [place] [phone] Shayy Ashraf NP [address] [place] [address] Fall, initial encounter (Primary Dx); Primary osteoarthritis [...] this encounter Progress Notes * Shayy Ashraf, MEE - 10/01/2025 10:40 AM EST Machelle Barroso [...] of this technology: Yes Visit Conducted in: Indonesian Translation by: Provided by [facility] staff member Lance [1] Patient Active [...] Oropharyngeal candidiasis COPD with acute exacerbation (CMS/HCC) ([facility]) Screening examination for STI Moderate persistent [...] twice daily until finished, Disp: , Rfl: knzfjkm-puzemlctdsfil-roddtcum (Pain Reliever Plus) 250-250-65 MG tablet, Take [...] 3 Respiratory Therapy Supplies (Adult Aerosol Mask) [facility], USE DIRECTED WITH NEBULIZER, Disp: , Rfl: [...] 80 g, Rfl: 3 TRUEplus Lancets 33G [facility], Apply 1 each topically Once per day., [...] 1:30 PM EST Office Visit [facility] AD[facility] [address] [place] [address] David Brysonaris [address] [place] [address] 10/29/2025 11:15 AM EST Office Visit [facility] [address] [place] [address] Brooklyn Jalloh MD [address] [place] [address] Scheduled Referrals Name Type Priority Associated Diagnoses [...] Laterality Modality Lower Extremities, Knee Left Radiogra phic Imaging 10/01/2025 2:28 PM EST Narrative 10/01/2025 2:[address] EST [facility] [address] [place] [address] XRay Report Signed Patient: Machelle Wooten MR#: [id number] : 1970 Acct:[id number] Age/Sex: 55 / F ADM Date: 10/01/25 Loc: .HHCX Attending Dr: Brooklyn Jalloh MD Ordering Physician: Shayy Ashraf NP Date of Service: 10/01/25 Procedure(s): XR knee LT 4V Accession Number(s): [id number] cc: Shayy Ashraf SWATCH FOLDER; Brooklyn Jalloh Reason for Exam: known OA [...] OV> 10/01/25 1441 DD/ 1428 TD/TT: 10/01/25 143 Signal Tester: MARIBELL Procedure Note Dickter, Image - 10/01/[address] [address] XRay Report Signed Patient: Machelle WootenMR#: [id number] : 1970Acct:[id number] Age/Sex: 55 / FADM Date: 10/01/25 Loc: .HHCX Attending Dr: Brooklyn Jalloh MD Ordering Physician: Shayy Ashraf NP Date of Service: 10/01/25 Procedure(s): XR knee LT 4V Accession Number(s): [id number] cc: Shayy Ashraf NP; Brooklyn Jalloh Reason for Exam: known OA [...] by: Remington Nguyen MD 10/01/2025 02:41 PM [facility] Dictated By: Remington Nguyen MD Signed By: <Electronically signed by Remington Nguyen MD in OV> 10/01/25 1441 DD/ 1428 TD/TT: 10/01/25 1430 Signal Tester: MARIBELL us Shayy Ashraf SWATCH FOLDER IMG XR PROCEDURES Final Result * XR Knee 4+ Views Right (10/01/2025 2:25 PM EST) Anatomical Region Laterality Modality Lower Extremities, Knee Right Radiogra phic Imaging 10/01/2025 2:25 PM EST Narrative 10/01/2025 2:[address] PM EST [facility] [address] [place] [address] XRay Report Signed Patient: Machelle Wooten MR#: [id number] : 1970 Acct:[id number] Age/Sex: 55 / F ADM Date: 10/01/25 Loc: HO.HHCX Attending Dr: Brooklyn Jalloh MD Ordering Physician: Shayy Ashraf NP Date of Service: 10/01/25 Procedure(s): XR knee RT 4V Accession Number(s): [id number] cc: Shayy Ashraf SWATCH FOLDER; Brooklyn Jalloh Reason for Exam: known OA, [...] MD 10/01/2025 02:41 PM EST Dictated By: Remintgon Nguyen MD Signed By: <Electronically signed by Remington Nguyen MD in OV> 10/01/25 1441 DD/ 1425 TD/TT: 10/01/25 1430 Signal Tester: MARIBELL Procedure Note Donotuseinterpreter, Image - 10/01/[address] [address] XRay Report Signed Patient: Alice Wooten#: [id number] : 1970Acct:[id number] Age/Sex: 55 / FADM Date: 10/01/25 [facility] Dr: Brooklyn Jalloh MD Ordering Physician: Shayy Ashraf NP Date of Service: 10/01/25 Procedure(s): XR knee RT 4V Accession Number(s): [id number] cc: Shayy Ashraf SWATCH FOLDER; Brooklyn Jalloh Reason for Exam: known OA, [...] by: Remington Nguyen MD 10/01/2025 02:41 PM [facility] Dictated By: Remington Nguyen MD Signed By: <Electronically signed by Remington Nguyen MD in OV> 10/01/25 1441 DD/ 1425 TD/TT: 10/01/25 1430 Signal Tester: MARIBELL us Shayy Ashraf NP IMG XR PROCEDURES Final Result documented in this encounter Visit Diagnoses Diagnosis Fall, initial encounter- Primary Primary osteoarthritis of both knees documented in this encounter Additional Health Concerns Assessment Noted Time PHQ-9 Depression Total Score: 19 09/19/2 025 11:41 AM EDT documented as of this encounter Care Teams Hand Rounder Relationship Specialty Start Date End Date Brooklyn Jalloh MD [address] [place] [address] PCP - General Family Medicine 07/17/21 documented as of this encounter
--- OUTSIDE RECORDS SUMMARY | 2025-10-01 15:49 | XMS_ITS | Encounter Summary ---
Author Organization [employer] Address [address] [facility] 7t [place] [address] Care Team Providers Care Bank Compliance Officer Name Role Phone Brooklyn Jalloh MD Primary Care Provider [phone] Encounter Details Date Type Department Care Team (Late st Contact Info) Description 01/28/2023 Orders Only [facility] [address] [place] [address] Sarika Jenkins CNM [address] [place] [address] Candidiasis of vulva and vagina (Primary Dx) [...] Description 10/20/2025 1:30 PM EST Office Visit [facility] ADULT DENTAL [address] [place] [address] Delaney Bryson [address] [place] [address] 10/29/2025 11:15 AM EST Office Visit [facility] [address] [place] [address] Brooklyn Jalloh MD [address] [place] [address] documented as of this encounter Visit Diagnoses Diagnosis Candidiasis of vulva and vagina- Primary documented in this encounter Care Teams Bank Compliance Officer Relationship Specialty Start Date End Date Brooklyn Jalloh MD [address] [place] [address] PCP - General Family Medicine 07/17/21 documented as of this encounter
--- OUTSIDE RECORDS SUMMARY | 2025-10-01 15:49 | XMS_ITS | Encounter Summary ---
Author Organization [employer] Address [address] [facility] 7t [place] [address] Care Team Providers Care Inside Account Executive Name Role Phone Brooklyn Jalloh MD Primary Care Provider [phone] Reason for Visit * Reason Onset Date Comments Durable Medical Equipment 02/07/2023 Encounter Details Date Type Department Care Team (Late st Contact Info) Description 02/07/2023 Telephone [facility] [address] [place] [address] Brooklyn Jalloh MD [address] [place] [address] Durable Medical Equipment Social History Tobacco Use [...] status on walker please contact pt at [phone]. documented in this encounter Plan of Treatment Upcoming Encounters Date Type Department Care Team (Late st Contact Info) Description 10/20/2025 1:30 PM EST Office Visit [facility] ADULT [facility] [address] [place] [address] BraydonDavidDelaney [address] [place] [address] 10/29/2025 11:15 AM EST Office Visit [facility] [address] [place] [address] Brooklyn Jalloh MD [address] [place] [address] documented as of this encounter Visit Diagnoses Not on filedocumented in this encounter Additional Health Concerns Assessment Noted Time PHQ-9 Depression Total Score: 6 02/05/20 23 11:27 AM EDT documented as of this encounter Care Teams Inside Account Executive Relationship Specialty Start Date End Date Brooklyn Jalloh MD [address] [place] [address] PCP - General Family Medicine 07/17/21 documented as of this encounter
--- OUTSIDE RECORDS SUMMARY | 2025-10-01 15:49 | XMS_ITS | Encounter Summary ---
Author Organization [employer] Address [address] [facility] 7t [place] [address] Care Team Providers Care Roentgenology Teacher Name Role Phone Brooklyn Jalloh MD Primary Care Provider [phone] Reason for Visit * Reason Onset Date Comments Medication Question 08/20/2024 Results 08/20/2024 Encounter Details Date Type Department Care Team ([facility] st Contact Info) Description 08/20/2024 Telephone [facility] [address] [place] [address] Brooklyn Jalloh MD [address] [place], [place] [phone] Medication Question; Results Social History Tobacco Use [...] 2:40 PM EDT TC placed to pt [phone] via [employer] in regards to below message. RN informed [...] - 08/20/2024 3:47 PM EDT Noted. Per [employer], shoulder Xray performed on 08/11/24 however interpretation [...] BW. Pt verbalized understanding. Pt also requesting xumhaqu-dfzbxvlipdlzw-jbjcsygf medication be Rx'd again for her migraines. [...] also requesting Eletriptan medication for migraines but commercial real estate underwriter did not see medication on med list. Please contact pt at [phone]. (French Speaker) documented in this encounter Plan of Treatment Upcoming Encounters Date Type Department Care Team (Late st Contact Info) Description 10/20/2025 1:30 PM EST Office Visit [facility] ADULT DENT[facility] [address] [place] [address] David Brysnoaris [address] [place] [address] 10/29/2025 11:15 AM EST Office Visit [facility] [address] [place] [address] Brooklyn Jalloh MD [address] [place] [address] documented as of this encounter Visit Diagnoses Not on filedocumented in this encounter Additional Health Concerns Assessment Noted Time PHQ-9 Depression Total Score: 5 03/16/20 24 11:45 AM EDT documented as of this encounter Care Teams Roentgenology Teacher Relationship Specialty Start Date End Date Brooklyn Jalloh MD [address] [place] [address] PCP - General Family Medicine 07/17/21 documented as of this encounter
--- OUTSIDE RECORDS SUMMARY | 2025-10-01 15:49 | XMS_ITS | Encounter Summary ---
Author Organization [employer] Address [address] [facility] 7t [place] [address] Care Team Providers Care Clinical Trials Assistant Name Role Phone Brooklyn Jalloh MD Primary Care Provider [phone] Reason for Visit * Reason Onset Date Comments Med Refill 02/04/2023 Encounter Details Date Type Department Care Team (Late st Contact Info) Description 02/04/2023 Telephone [facility] [address] [place] [address] Brooklyn Jalloh MD [address] [place] [address] Med Refill Social History Tobacco Use Types [...] hopeless Several days 02/04/2023 11:27 AM Mimi Scwharz [place] Trouble falling or staying asleep, or [...] 3:33 PM EDT Medications were sent to [facility] today 02/04/23. * Telephone Encounter - Ankur Villaneuva - 02/04/2023 3:01 PM EDT Tc from pt requesting med refill Prednisone 20 mg Ibuprofen 800 mg Doxycycline 100 mg documented in this encounter Plan of Treatment Upcoming Encounters Date Type Department Care Team (Late st Contact Info) Description 10/20/2025 1:30 PM EST Office Visit [facility] ADULT DENTAL [address] [place] [address] Braydon, Delaney [address] [place] [address] 10/29/2025 11:15 AM EST Office Visit [facility] MED[facility] [address] [place] [address] Brooklyn Jalloh MD [address] [place] [address] documented as of this encounter Visit Diagnoses Not on filedocumented in this encounter Additional Health Concerns Assessment Noted Time PHQ-9 Depression Total Score: 6 02/05/20 23 11:27 AM EDT documented as of this encounter Care Teams Clinical Trials Assistant Relationship Specialty Start Date End Date Brooklyn Jalloh MD [address] [place], [place] [phone] PCP - General Family Medicine 07/17/21 documented as of this encounter
--- OUTSIDE RECORDS SUMMARY | 2025-10-01 15:49 | XMS_ITS | Encounter Summary ---
Author Organization [employer] Address [address] [facility] 7t [place] [address] Care Team Providers Care Ad Operations Associate Name Role Phone Brooklyn Jalloh MD Primary Care Provider [phone] Reason for Visit * Reason Onset Date Comments triage 03/06/2023 Encounter Details Date Type Department Care Team ([facility] st Contact Info) Description 03/06/2023 Telephone [facility] [address] [place], [place] [phone] Brooklyn Jalloh MD [address] [place] [address] triage Social History Tobacco Use Types Packs/Day [...] 03/06/2023 3:39 PM EDT triage call with [facility] [place] Manager [place] [id number] Pt reports itchiness on face. Pt reports this has been for two days and has some red spots now. Pt has had this before in different areas of the body. Pt has seen barrel repairer Cassie and jakob to help but doesn't know the name of the cream. Pt is offered to come to [facility] to be seen by provider but, declines. Pt wants only to have apt with barrel repairer will send to PCP nurse team to [...] now The caller accepted this outcome speaks greenlandic documented in this encounter Plan of Treatment Upcoming Encounters Date Type Department Care Team (Late st Contact Info) Description 10/20/2025 1:30 PM EST Office Visit [facility] [address] [place], [place] [phone] Delaney Bryson [address] [place] [address] 10/29/2025 11:15 AM EST Office Visit [facility] [address] [place] [address] Brooklyn Jalloh MD [address] [place] [address] documented as of this encounter Visit Diagnoses Not on filedocumented in this encounter Additional Health Concerns Assessment Noted Time PHQ-9 Depression Total Score: 6 02/05/20 23 11:27 AM EDT documented as of this encounter Care Teams Ad Operations Associate Relationship Specialty Start Date End Date Brooklyn Jalloh MD [address] [place] [address] PCP - General Family Medicine 07/17/21 documented as of this encounter
--- OUTSIDE RECORDS SUMMARY | 2025-10-01 15:49 | XMS_ITS | Encounter Summary ---
Author Organization [employer] Address [address] [facility] [address] 7t [place] [address] Care Team Providers Care Relay Associate Name Role Phone Brooklyn Jalloh MD Primary Care Provider [phone] Encounter Details Date Type Department Care Team (Late st Contact Info) Description 08/25/2024 Orders Only [facility] [address] [place] [address] Provider, MD Dipak Social History Tobacco Use [...] Description 10/20/2025 1:30 PM EST Office Visit [facility] ADULT DENTAL [address] [place], [place] [phone] Braydon, Delaney [address] [place], [place] [phone] 10/29/2025 11:15 AM EST Office Visit [facility] [address] [place], [place] [phone] Brooklyn Jalloh MD [address] [place], [place] [phone] documented as of this encounter Procedures Procedure [...] documented as of this encounter Care Teams Relay Associate Relationship Specialty Start Date End Date Brooklyn Jalloh MD [address] [place], [place] [phone] PCP - General Family Medicine 07/17/21 documented as of this encounter
--- OUTSIDE RECORDS SUMMARY | 2025-10-01 15:49 | XMS_ITS | Encounter Summary ---
Author Organization [employer] Address 75 [facility] 7t h Floor [place] [id number] Care Team Providers Care Insurance Processing Clerk Name Role Phone Brooklyn Jalloh MD Primary Care Provider [phone] Encounter Details Date Type Department Care Team (Late Contact Info) Description 02/15/2023 Orders Only [facility] [address] [place] [address] Brooklyn Jalloh MD [address] [place] [address] Ingrown toenail (Primary Dx) Social History Tobacco [...] Description 10/20/2025 1:30 PM EST Office Visit [facility] [address] [place], [place] [phone] Delaney Bryson [address] [place] [address] 10/29/2025 11:15 AM EST Office Visit [facility] [address] [place], [place] [phone] Brooklyn Jalloh MD [address] [place], [place] [phone] documented as of this encounter Visit Diagnoses Diagnosis Ingrown toenail- Primary Ingrowing nail documented in this encounter Additional Health Concerns Assessment Noted Time PHQ-9 Depression Total Score: 6 02/05/20 23 11:27 AM EDT documented as of this encounter Care Teams Insurance Processing Clerk Relationship Specialty Start Date End Date Brooklyn Jalloh MD [address] [place] [phone] PCP - General Family Medicine 07/17/21 documented as of this encounter
--- OUTSIDE RECORDS SUMMARY | 2025-10-01 15:49 | XMS_ITS | Encounter Summary ---
Author Organization [employer] Address 75 [facility] 7t [place] [address] Care Team Providers Care Auto Damage Trainee Name Role Phone Brooklyn Jalloh MD Primary Care Provider [phone] Reason for Visit * Reason Onset Date Comments Referral 08/05/2024 Encounter Details Date Type Department Care Team ([facility] st Contact Info) Description 08/05/2024 Telephone [facility] [address] [place], [place] [phone] Brooklyn Jalloh MD [address] [place] [address] Referral Social History Tobacco Use Types Packs/Day [...] of the breast to be sent to [facility] Address: [address] [place] [address] Fax- [phone] documented in this encounter Plan of Treatment Upcoming Encounters Date Type Department Care Team (Late st Contact Info) Description 10/20/2025 1:30 PM EST Office Visit [facility] ADULT DENTAL [address] [place] [address] Braydon, Delaney [address] [place] [address] 10/29/2025 11:15 AM EST Office Visit [facility] MED[facility]INE [address] [place] [address] Brooklyn Jalloh MD [address] [place] [address] documented as of this encounter Visit Diagnoses Not on filedocumented in this encounter Additional Health Concerns Assessment Noted Time PHQ-9 Depression Total Score: 5 03/16/20 24 11:45 AM EDT documented as of this encounter Care Teams Auto Damage Trainee Relationship Specialty Start Date End Date Brooklyn Jalloh MD [address] [place] [address] PCP - General Family Medicine 07/17/21 documented as of this encounter
--- OUTSIDE RECORDS SUMMARY | 2025-10-01 15:49 | XMS_ITS | Encounter Summary ---
Author Organization [employer] Address 75 [facility] 7t [place] [address] Care Team Providers Care Fiberglass Insulation Installer Name Role Phone Brooklyn Jalloh MD Primary Care Provider [phone] Encounter Details Date Type Department Care Team ([facility] Contact Info) Description 03/07/2023 Orders Only [facility] [address] [place] [address] Brooklyn Jalloh MD [address] [place] [address] Rash of face (Primary Dx) Social History [...] [facility] [address] [place], [place] [phone] Delaney Bryson [address] [place] [address] 10/29/2025 11:15 AM EST Office Visit [facility] [address] [place] [address] Brooklyn Jalloh MD [address] [place] [address] documented as of this encounter Visit Diagnoses Diagnosis Rash of face- Primary documented in this encounter Additional Health Concerns Assessment Noted Time PHQ-9 Depression Total Score: 6 02/05/20 23 11:27 AM EDT documented as of this encounter Care Teams Fiberglass Insulation Installer Relationship Specialty Start Date End Date Brooklyn Jalloh MD [address] [place] [address] PCP - General Family Medicine 07/17/21 documented as of this encounter
--- OUTSIDE RECORDS SUMMARY | 2025-10-01 15:50 | XMS_ITS | Encounter Summary ---
Author Organization [employer] Address [address] [facility] 7t [place] [address] Care Team Providers Care Tumbling Machine Operator Name Role Phone Brooklyn Jalloh MD Primary Care Provider [phone] Encounter Details Date Type Department Care Team (Late Contact Info) Description 05/11/2023 Orders Only [facility] MEDICINE [address] [place] [address] Brooklyn Jalloh MD [address] [place] [address] Onychomycosis (Primary Dx) Social History Tobacco Use [...] 10/20/2025 1:30 PM EST Office Visit [facility] ADULT DENTAL [address] [place] [address] Delaney Bryson [address] [place] [address] 10/29/2025 11:15 AM EST Office Visit [facility] MEDICINE [address] [place] [address] Brooklyn Jalloh MD [address] [place] [address] documented as of this encounter Visit Diagnoses Diagnosis Onychomycosis- Primary Dermatophytosis of nail documented in this encounter Additional Health Concerns Assessment Noted Time PHQ-9 Depression Total Score: 6 02/05/20 23 11:27 AM EDT documented as of this encounter Care Teams Tumbling Machine Operator Relationship Specialty Start Date End Date Brooklyn Jalloh MD [address] [place] [address] PCP - General Family Medicine 07/17/21 documented as of this encounter
--- OUTSIDE RECORDS SUMMARY | 2025-10-01 15:50 | XMS_ITS | Encounter Summary ---
Author Organization [employer] Address [address] [facility] [address] 7t [place] [address] Care Team Providers Care Recruiting Administrator Name Role Phone Brooklyn Jalloh MD Primary Care Provider [phone] Encounter Details Date Type Department Care Team (Latest Contact Info) Description 10/01/2025 Travel Social History Tobacco Use Types Packs/Day [...] 10/20/2025 1:30 PM EST Office Visit [facility] ADULT DENT[facility] [address] [place] [address] Braydon, Delaney [address] [place] [address] 10/29/2025 11:15 AM EST Office Visit [facility] MED[facility]INE [address] [place] [address] Brooklyn Jalloh MD [address] [place] [address] documented as of this encounter Visit Diagnoses Not on filedocumented in this encounter Additional Health Concerns Assessment Noted Time PHQ-9 Depression Total Score: 19 025 11:41 AM EDT documented as of this encounter Care Teams Recruiting Administrator Relationship Specialty Start Date End Date Brooklyn Jalloh MD [address] [place] [address] PCP - General Family Medicine 07/17/21 documented as of this encounter
--- OUTSIDE RECORDS SUMMARY | 2025-10-01 15:50 | XMS_ITS | Encounter Summary ---
Author Organization [employer] Address [address] [facility] [address] 7t [place] [address] Care Team Providers Care Flower Shop Laborer/Designer Name Role Phone Brooklyn Jalloh MD Primary Care Provider [phone] Encounter Details Date Type Department Care Team (Late st Contact Info) Description 08/26/2024 Orders Only [facility] MEDICINE [address] [place] [address] Brooklyn Jalloh MD [address] [place] [address] Elevated alkaline phosphatase level (Primary Dx) Social [...] Description 10/20/2025 1:30 PM EST Office Visit [facility] ADULT DENTAL [address] [place] [address] Braydon, Delaney [address] [place] [address] 10/29/2025 11:15 AM EST Office Visit [facility] MEDICINE [address] [place] [address] Brooklyn Jalloh MD [address] [place] [address] documented as of this encounter Procedures Procedure Name Priority Date/Time Associated Diagnosis Comments MITOCHONDRIAL ANTIBODY WITH REFLEX TO TITER Routine 04/02/2025 11:49 AM EDT Elevated alkaline phosphatase level documented in this encounter Results * Mitochondrial Antibody with Reflex to Titer (04/02/2025 11:49 AM EDT) Mitochondrial Antibodies NEGATIVE NEGATIVE [facility] Comment:THIS TEST WAS PERFOR MED AT:[address] [place] [id number] GRIGGS MD Mitochondrial Ab Titer TNP [facility] Blood Venous blood specimen / Unknown 04/02/2025 11:49 AM EDT 04/02/2025 1:17 PM EDT Brooklyn Jalloh MD LAB BLOOD ORDERABLES Final Res ult Performing Organization Address City/State/[facility] Co de Phone Number [facility] [address] [place] [address] [phone] documented in this encounter Visit Diagnoses Diagnosis Elevated alkaline phosphatase level- Primary documented in this encounter Additional Health Concerns Assessment Noted Time PHQ-9 Depression Total Score: 5 03/16/20 24 11:45 AM EDT documented as of this encounter Care Teams Flower Shop Laborer/Designer Relationship Specialty Start Date End Date Brooklyn Jalloh MD [address] [place] [address] PCP - General Family Medicine 07/17/21 documented as of this encounter
--- OUTSIDE RECORDS SUMMARY | 2025-10-01 15:50 | XMS_ITS | Encounter Summary ---
Author Organization [employer] Address 75 [facility] 7t [place] [address] Care Team Providers Care It Infrastructure Manager Name Role Phone Brooklyn Jalloh MD Primary Care Provider [phone] Encounter Details Date Type Department Care Team (Late st Contact Info) Description 07/23/2023 Abstract [facility] [address] [place] [address] [phone] Brooklyn Jalloh MD [address] [place] [address] Social History Tobacco Use Types Packs/Day Years [...] Visit [facility] ADULT DENTAL [address] [place] [address] [phone] Delaney Bryson 230 [place] [address] 10/29/2025 11:15 AM EST Office Visit [facility] [address] [place] [address] Brooklyn Jalloh MD 230 [place] [address] documented as of this encounter Visit Diagnoses Not on filedocumented in this encounter Additional Health Concerns Assessment Noted Time PHQ-9 Depression Total Score: 6 02/05/20 23 11:27 AM EDT documented as of this encounter Care Teams It Infrastructure Manager Relationship Specialty Start Date End Date Brooklyn Jalloh MD 230 [place] [address] PCP - General Family Medicine 07/17/21 documented as of this encounter
--- OUTSIDE RECORDS SUMMARY | 2025-10-01 15:50 | XMS_ITS | Clinical Summary ---
Author Organization 175 [facility] Address 175 [place] [address] Phone Care Team Providers Care Cardiopulmonary Physical Therapist Name Role Phone Brooklyn Jalloh MD Primary Care Provider [phone] Allergies Active Allergy Reactions Criticality Noted Date [...] AM EST Office Visit [facility] [place] [address] [address] Scot Durant DPM [address] [address] Health Maintenance Due Date Last Done Comments [...] Test (08/31/2024) Annual BMP Blood Test abstracted [facility] Provider HEALTH MAINTENANCE Final Result * HIV Screening (08/18/2024) [facility] HIV Screening abstracted [facility] Provider HEALTH MAINTENANCE Final Result * Hepatitis C Screening (08/18/2024) Pathologist [facility] Hepatitis C Screening abstracted [facility] Provider HEALTH MAINTENANCE Final Result * Lipid panel (02/21/2021) Pathologist [facility] LDL/HDL Ratio 0 Comment:abstracted, no inter pretation Triglycerides 0 mg/dL Comment:abstracted, no inter pretation Cholesterol 0 mg/dL Comment:abstracted, no inter pretation HDL 0 mg/dL Comment:abstracted, no inter pretation LDL Cholesterol 0 mg/dL Comment:abstracted, no inter pretation Blood Venous blood specimen / Unknown [facility] Provider LAB BLOOD ORDERABLES Julianne l Result from Last 3 Months or Most Recently Relevant to Health Maintenance Insurance [facility] Member Subscriber Plan / Payer (Ef fective 2018-Present) Name:MACHELLE CUNNINGHAM Relation to Subscriber:Self Name:Marquise Cunninghammen M Payer ID:[id number] Group ID:[id number] Type:Not on file Address: [place] [address] [address] Care Teams Cardiopulmonary Physical Therapist Relationship Specialty Start Date End Date Brooklyn Jalloh MD 230 [place] [address] PCP - General 09/12/22
--- OUTSIDE RECORDS SUMMARY | 2025-10-01 15:50 | XMS_ITS | Encounter Summary ---
Author Organization [employer] Address 75 [facility] 7t [place] [address] Care Team Providers Care Nurse Extern Name Role Phone Brooklyn Jalloh MD Primary Care Provider [phone] Reason for Visit * Reason Onset Date Comments Referral 05/10/2023 Encounter Details Date Type Department Care Team ([facility] st Contact Info) Description 05/10/2023 Telephone [facility] MEDICINE [address] [place], [place] [phone] Brooklyn Jalloh MD 230 [place] [address] Referral Social History Tobacco Use Types Packs/Day [...] to her toenails. Please contact pt at [phone] Urdu Speaker documented in this encounter Plan of Treatment Upcoming Encounters Date Type Department Care Team (Late st Contact Info) Description 10/20/2025 1:30 PM EST Office Visit [facility] ADULT DENTAL [address] [place] [address] BraydonDavidDelaney [address] [place] [address] 10/29/2025 11:15 AM EST Office Visit [facility] MEDICINE [address] [place] [address] Brooklyn Jalloh MD [address] [place] [address] documented as of this encounter Visit Diagnoses Not on filedocumented in this encounter Additional Health Concerns Assessment Noted Time PHQ-9 Depression Total Score: 6 02/05/20 23 11:27 AM EDT documented as of this encounter Care Teams Nurse Extern Relationship Specialty Start Date End Date Brooklyn Jalloh MD [address] [place] [address] PCP - General Family Medicine 07/17/21 documented as of this encounter
--- OUTSIDE RECORDS SUMMARY | 2025-10-01 15:50 | XMS_ITS | Encounter Summary ---
Author Organization [employer] Address 75 [facility] 7t [place] [address] Care Team Providers Care Epic Trainer Name Role Phone Brooklyn Jalloh MD Primary Care Provider [phone] Reason for Visit * Reason Onset Date Comments Appointment Request 03/19/2025 Encounter Details Date Type Department Care Team ([facility] st Contact Info) Description 03/19/2025 Telephone [facility] MEDICINE [address] [place] [address] Brooklyn Jalloh MD [address] [place] [address] Appointment Request Social History Tobacco Use Types [...] 10/20/2025 1:30 PM EST Office Visit [facility] ADULT DENTAL [address] [place] [address] Braydon, Delaney [address] [place] [address] 10/29/2025 11:15 AM EST Office Visit [facility] MEDICINE 230 [place] [address] Brooklyn Jalloh MD [address] [place] [address] documented as of this encounter Visit Diagnoses Not on filedocumented in this encounter Additional Health Concerns Assessment Noted Time PHQ-9 Depression Total Score: 5 03/16/20 24 11:45 AM EDT documented as of this encounter Care Teams Epic Trainer Relationship Specialty Start Date End Date Brooklyn Jalloh MD [address] [place] [address] PCP - General Family Medicine 07/17/21 documented as of this encounter
--- OUTSIDE RECORDS SUMMARY | 2025-10-01 15:50 | XMS_ITS | Encounter Summary ---
Author Organization [employer] Address 75 [facility] 7t [place] [address] Care Team Providers Care Vacuum Bottle Assembler Name Role Phone Brooklyn Jalloh MD Primary Care Provider [phone] Encounter Details Date Type Department Care Team ([facility] st Contact Info) Description 05/21/2025 Telephone [facility] MEDICINE 230 [place], [place] [phone] Brooklyn Jalloh MD [address] [place] [address] Social History Tobacco Use Types Packs/Day Years [...] Description 10/20/2025 1:30 PM EST Office Visit [facility] ADULT DENTAL [address] [place] [address] Braydon, Delaney 230 [place] [address] 10/29/2025 11:15 AM EST Office Visit [facility] MEDICINE [address] [place] [address] Brooklyn Jalloh MD [address] [place] [address] documented as of this encounter Visit Diagnoses Not on filedocumented in this encounter Additional Health Concerns Assessment Noted Time PHQ-9 Depression Total Score: 14 025 12:17 PM EDT documented as of this encounter Care Teams Vacuum Bottle Assembler Relationship Specialty Start Date End Date Brooklyn Jalloh MD [address] [place] [address] PCP - General Family Medicine 07/17/21 documented as of this encounter
--- OUTSIDE RECORDS SUMMARY | 2025-10-01 15:50 | XMS_ITS | Data Portability ---
Author Organization [place] - [facility], Allergy Address [address] [address] Assessment Encounter Date Assessment Date Assessment LastModified [...] oil 0.01 % ear drops 2024 025 [facility], [address] [place], [place], [id number], 09/22/2025 10:22:46 fluocinol one acetonide oil 0.01 % ear drops 2024 025 [facility], [address] [place], [place], [phone], 05/05/2025 09:22:39 Patient TargetsNo targets recorded. Patient [...] Address Organization Details Recorded Time Bilateral tinnitus 93342689421 02 Active 2022 Tinnitus, bilateral ; Note: Date Diagnosed : 04/18/2023 4:24 PM (H93.13) Not Available [facility] 4 03:26:19 Sensorine ural hearing loss of bilateral ears 141031971 Active 2022 Sensorine ural hearing loss, bilateral ; Note: Date Diagnosed : 04/18/2023 2:04 PM (H90.3) Not Available [facility] 4 03:26:18 Itching of skin 424485213 Active 2022 Other pruritus; Note: Date Diagnosed : 04/18/2023 4:24 PM (L29.8) Not Available [facility] 4 03:26:18 Problem Notes None recorded. Procedures Surgical History Date Name Laterality Status Provider Name and Address Organization Details Recorded Time 01/06/2025 Air & Speech Audio with Tymps - 23416, 32485 & 53871 completed NAJMA DENIS, [facility],[address], [address], [facility] - [facility] 01/06/2025 09:33:21 Imaging Results None recorded. Procedure Notes None recorded. Medical Equipment None Reported. Allergies Allergen ID Allergen Name Allergen Category Reaction Reaction Severity Criticality Documentation Date Start Date Code Code System Note Provider Name and Address Organization Details Recorded Time 915605 Fish (substanc e) food,medi cation Not available Not available Not available 04/07/2024 78349 1005 SNOMED React ion: Hives , Rash; Not Available [facility] 4 01:27:00 Medications Name Sig [...] 800 mg tablet active Medicatio n ID: [id number] Br and Name: ibuprofen Send Method: E-Prescri bed Subs Allowed: subs OK Medica tionGener icName: ibuprofen Not Available Not Available Not Available fluconazol e 150 mg tablet TAKE 1 TABLET BY MOUTH FOR 1 DOSE active Not Available Not Available No t Available senna 8.6 mg tablet active Medicatio n ID: [id number] Br and Name: senna Sen d Method: [...] Updated DateTime 12/25/2024 165.1 cm 25.8 kg/m2 12474.82 g [facility] 12/25/2024 11:38:16 Date Recorded Body height Body mass index (BMI) Body weight Provider Name and Address Organization Details Last Updated DateTime 06/17/2025 165.1 cm 25.8 kg/m2 61871.82 g [facility]et [facility] 06/17/2025 11:25:03 Social History None recorded. Functional Status None recorded. Mental Status None recorded. Family History Nothing Reported. Medical History No medical history recorded. Gynecological HistoryNo gynecological history recorded. Obstetrics History GPAL:G 0 P 0 0 0 0 Past Encounters Encounter ID Performer Location Encounter Start Date Encounter Closed Date Diagnosis/Indication Diagnosis SNOMED-CT Code Diagnosis ICD10 Code Diagnosis IMO Codes Diagnosis Note [id number] IMMANUEL CARCAMO PA-C [facility] [address] [address] 12/25/2024 11:28:54 12/25/2024 11:54:46 Itching of skin 190344461 L29.89 Sensorineu ral hearing loss of bilateral ears 752017257 H90.3 Bilateral tinnitus 37456 72320 102 H93.13 [id number] PATRIZIA FERREIRA [facility] [address] [address] 01/06/2025 09:20:17 01/06/2025 09:38:10 Sensorineural hearing loss of bilateral ears 306617403 H90.3 Audiologic al evaluation results: Normal sloping to mild sensorineu ral hearing loss with excellent word recognitio n, bilaterall y. Tympanomet ry:Right Ear:Type ALeft Ear:Type A [id number] LIOR KHANNA PA-C [facility] [address] [address] 06/17/2025 11:04:14 06/17/2025 11:41:18 Itching of skin 184586452 L29.89 Sensorineu ral hearing loss of bilateral ears 436074873 H90.3 Health Concerns Section Related Observation LastModified by Organization Detai ls LastModified Time None Recorded Concern Status LastModified by Organization Details LastModified Time None Recorded Advance Directives Directive None Recorded Payers Insurance Date Sequence Insurance Name Policy Number Policy Gordon Covered Member ID Gordon Member ID Guarantor Name 03/02/2025 1 [facility] [place] ([place]ICARE [place]PLAC[place]/ADV ANTAGE - HMO) Machelle Barroso [id number] Machelle Barroso 08/16/[address] [facility] - DOS ON OR AFTER 2023 - ONE CARE (MEDICARE REPLACEMENT/ADV ANTAGE - HMO) Machelle Barroso [id number] Machelle Barroso Notes Date Note Type Note [...] itchier when she is anxious. Immanuel nguyen [place] - [facility] 12/25/2024 12:24:29 01/06/2025 text/html Audiological Evaluation HPIReported by PatientHearing LossFor hearing loss perceived, patient reportsgradual onset. PATRIZIA FERREIRA 100 [facility],[address], [address], [facility] 01/06/2025 09:35:45 06/17/2025 text/html ROS as noted [...] stable HF SNHL JAIMEE SNOW MD 100 [facility], [place], [address], [facility] 06/18/2025 14:16:14 OBGyn Episode No OBEpisode recorded.
--- OUTSIDE RECORDS SUMMARY | 2025-10-01 15:50 | XMS_ITS | Encounter Summary ---
Author Organization [employer] Address 75 [facility] 7t [place] [address] Care Team Providers Care Spooler Rubber Strand Name Role Phone Brooklyn Jalloh MD Primary Care Provider [phone] Reason for Visit * Reason Comments Med Refill Encounter Details Date Type Department Care Team (Late Contact Info) Description 07/29/2023 Refill [facility] [address] [place], [place] [phone] Brooklyn Jalloh MD [address] [place], [place] [phone] Social History Tobacco Use Types Packs/Day Years [...] Description 10/20/2025 1:30 PM EST Office Visit [facility] ADULT DENTAL [address] [place] [address] Delaney Bryson [address] [place] [address] 10/29/2025 11:15 AM EST Office Visit [facility] MEDICINE [address] [place] [address] Brooklyn Jalloh MD [address] [place] [address] documented as of this encounter Visit Diagnoses Not on filedocumented in this encounter Additional Health Concerns Assessment Noted Time PHQ-9 Depression Total Score: 6 02/05/20 23 11:27 AM EDT documented as of this encounter Care Teams Spooler Rubber Strand Relationship Specialty Start Date End Date Brooklyn Jalloh MD [address] [place] [address] PCP - General Family Medicine 07/17/21 documented as of this encounter
--- OUTSIDE RECORDS SUMMARY | 2025-10-01 15:50 | XMS_ITS | Encounter Summary ---
Author Organization [employer] Address 75 [facility] [address] 7t [place] [address] Care Team Providers Care Lockstitch Lining Setter Name Role Phone Brooklyn Jalloh MD Primary Care Provider [phone] Reason for Visit * Reason Comments Med Refill Encounter Details Date Type Department Care Team (Late st Contact Info) Description 09/24/[address] [facility] [address] [place] [address] Brooklyn Jalloh MD [address] [place] [address] Cough in adult patient Social History Tobacco [...] 10/20/2025 1:30 PM EST Office Visit [facility] ADULT DENTAL [address] [place] [address] Delaney Bryson [address] [place] [address] 10/29/2025 11:15 AM EST Office Visit [facility] MEDICINE [address] [place] [address] Brooklyn Jalloh MD [address] [place] [address] documented as of this encounter Visit Diagnoses Diagnosis Cough in adult patient documented in this encounter Additional Health Concerns Assessment Noted Time PHQ-9 Depression Total Score: 19 025 11:41 AM EDT documented as of this encounter Care Teams Lockstitch Lining Setter Relationship Specialty Start Date End Date Brooklyn Jalloh MD [address] [place] [address] PCP - General Family Medicine 07/17/21 documented as of this encounter
--- OUTSIDE RECORDS SUMMARY | 2025-10-01 15:50 | XMS_ITS | Encounter Summary ---
Author Organization [employer] Address 75 [facility] 7t [place] [address] Care Team Providers Care Sap Bw Architect Name Role Phone Brooklyn Jalloh MD Primary Care Provider [phone] Reason for Visit * Reason Onset Date Comments Medication Question 11/19/2024 Encounter Details Date Type Department Care Team ([facility] st Contact Info) Description 11/19/2024 Telephone [facility] MEDICINE 230 [place] [address] Brooklyn Jalloh MD [address] [place] [address] Medication Question Social History Tobacco Use Types [...] Description 10/20/2025 1:30 PM EST Office Visit [facility] ADULT DENTAL [address] [place] [address] David Brysonaris [address] [place] [address] 10/29/2025 11:15 AM EST Office Visit [facility] MEDICINE [address] [place] [address] Brooklyn Jalloh MD [address] [place] [address] documented as of this encounter Visit Diagnoses Not on filedocumented in this encounter Additional Health Concerns Assessment Noted Time PHQ-9 Depression Total Score: 5 03/16/20 24 11:45 AM EDT documented as of this encounter Care Teams Sap Bw Architect Relationship Specialty Start Date End Date Brooklyn Jalloh MD [address] [place] [address] PCP - General Family Medicine 07/17/21 documented as of this encounter
--- OUTSIDE RECORDS SUMMARY | 2025-10-01 15:50 | XMS_ITS | Encounter Summary ---
Author Organization [employer] Address 75 [facility] 7t [place] [address] Care Team Providers Care Filer Helper Name Role Phone Brooklyn Jalloh MD Primary Care Provider [phone] Reason for Referral * (Routine) - Closed Specialty Diagnoses / Procedures Referred By Tenzin t Referred To Contact Diagnoses Benign breast disease Procedures BI Mammogram Diagnostic same day Diagnostic same/ Day Right Brooklyn Jalloh MD [address] [place] [address] Phone: tel: fax: Referral ID Status Reason Start Date Expiration Date Visits Re quested Visits Authorized [id number] Closed 03/20/2023 09/16/2023 1 1 Encounter Details Date Type Department Care Team (Late st Contact Info) Description 03/20/2023 Orders Only [facility] MEDICINE [address] [place] [address] [phone] Brooklyn Jalloh MD [address] [place] [address] [phone] Benign breast disease (Primary Dx) Social History [...] Description 10/20/2025 1:30 PM EST Office Visit [facility] ADULT DENTAL [address] [place] [address] Braydon, Delaney [address] [place] [address] 10/29/2025 11:15 AM EST Office Visit [facility] MEDICINE [address] [place] [address] Brooklyn Jalloh MD [address] [place] [address] Scheduled Orders Name Type Priority Associated Diagnoses [...] documented as of this encounter Care Teams Filer Helper Relationship Specialty Start Date End Date Brooklyn Jalloh MD [address] [place] [address] PCP - General Family Medicine 07/17/21 documented as of this encounter
--- OUTSIDE RECORDS SUMMARY | 2025-10-01 15:50 | XMS_ITS | Encounter Summary ---
Author Organization [employer] Address 75 [facility] 7t h Floor [place] [id number] Care Team Providers Care Litharge Mill Operator Name Role Phone Brooklyn Jalloh MD Primary Care Provider [phone] Reason for Visit * Reason Onset Date Comments referral 11/29/2023 Encounter Details Date Type Department Care Team ([facility] st Contact Info) Description 11/29/2023 Telephone [facility] MEDICINE 230 [place], [place] [phone] Brooklyn Jalloh MD 230 [place] [address] referral Social History Tobacco Use Types Packs/Day [...] Tc from pt requesting a Referral for [facility] Gastrology with Dr. Aldrich @ [address] [place] [address] to be further Evaluated for her Diagnoses @ the [facility] of gastroenteritis. Please contact pt @ [phone] documented in this encounter Plan of Treatment Upcoming Encounters Date Type Department Care Team ([facility] st Contact Info) Description 10/20/2025 1:30 PM EST Office Visit [facility] ADULT DENTAL [address] [place] [address] Delaney Bryson [address] [place] [address] 10/29/2025 11:15 AM EST Office Visit [facility] MEDICINE [address] [place] [address] Brooklyn Jalloh MD [address] [place] [address] documented as of this encounter Visit Diagnoses Not on filedocumented in this encounter Additional Health Concerns Assessment Noted Time PHQ-9 Depression Total Score: 6 02/05/20 23 11:27 AM EDT documented as of this encounter Care Teams Litharge Mill Operator Relationship Specialty Start Date End Date Brooklyn Jalloh MD [address] [place] [address] PCP - General Family Medicine 07/17/21 documented as of this encounter
--- OUTSIDE RECORDS SUMMARY | 2025-10-01 15:50 | XMS_ITS | Encounter Summary ---
Author Organization [employer] Address [address] [place] [address] Care Team Providers Care Cat Driver Name Role Phone Brooklyn Jalloh MD Primary Care Provider [phone] Reason for Visit * Reason Comments Med Refill Encounter Details Date Type Department Care Team ([facility] st Contact Info) Description 05/18/2025 Refill [facility] MEDICINE [address] [place] [address] Brooklyn Jalloh MD [address] [place] [address] Social History Tobacco Use Types Packs/Day Years [...] Description 10/20/2025 1:30 PM EST Office Visit [facility] ADULT DENTAL [address] [place] [phone] Daivd Brysonaris [address] [place] [address] 10/29/2025 11:15 AM EST Office Visit [facility] MEDICINE [address] [place] [id number] Brooklyn Jalloh MD [address] [place] [phone] documented as of this encounter Visit Diagnoses Not on filedocumented in this encounter Additional Health Concerns Assessment Noted Time PHQ-9 Depression Total Score: 14 025 12:17 PM EDT documented as of this encounter Care Teams Cat Driver Relationship Specialty Start Date End Date Brooklyn Jalloh MD [address] [place] [phone] PCP - General Family Medicine 07/17/21 documented as of this encounter
--- OUTSIDE RECORDS SUMMARY | 2025-10-01 15:50 | XMS_ITS | Clinical Summary ---
Author Organization [employer] Address [address] [place] [address] Care Team Providers Care Lawn Care Technician Name Role Phone Brooklyn Jalloh MD Primary Care Provider [phone] Allergies Active Allergy Reactions Criticality Noted Date [...] Respiratory Therapy Supplies (Adult Aerosol Mask) [facility] USE DIRECTED WITH NEBULIZER 023 Active triamcinolone [...] for up to 1 day. 1 each 2024 fluconazole (Diflucan) 150 MG tabletIndications :Vaginal candidiasis Take 1 tablet (150 mg) by mouth 1 (one) time per week for 1 dose. 1 tablet 025 2024 Miconazole Nitrate (Monistat 3) 4 % cream Insert 1 Application into the vagina Once per day for 3 days. 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 Acute left-sided [...] and follow-up results COPD with acute exacerbation ([facility]) Assessment & Plan (06/26/2025 11:15 AM EDT): [...] Diet controlled Will start going to [facility] with her daughter as well Anxiety [...] Atorvastatin 40mg Check lipids annually Osteoarthritis 11/15/2017 Assessment & Plan (10/01/2025 1:53 PM EST): Trigger finger 11/15/2017 Resolved Problems Problem Noted [...] Encounters Date Type Department Care Team Description 10/01/2025 10:40 AM EST Office Visit [facility] [address] [place] [phone] Shayy Ashraf NP Fall, initial encounter (Primary Dx); Primary osteoarthritis of both knees 10/01/2025 Travel 09/24/2025 Orders Only [facility] [address] [place] [phone] Shayy Ashraf NP Vaginal candidiasis (Primary Dx) 09/24/2025 Refill [facility] [address] [place] [address] [phone] Brooklyn Jalloh MD Cough in adult patient 09/22/2025 Telephone [facility] [address] [place] [address] [phone] Trenton Fernandez CNP 09/21/2025 Telephone [facility] [address] [place] [phone] Brooklyn Jalloh MD Medication Question 09/20/2025 9:40 AM EDT Office Visit [facility] [address] [place] [phone] Genna Irizarry FNP Vaginal discharge (Primary Dx); Vaginal itching; Vaginal candidiasis 09/20/2025 Travel 09/13/2025 Refill [facility] [address] [place] [phone] Brooklyn Jalloh MD 09/11/2025 11:40 AM EDT Office Visit [facility] [address] [place] [address] Trenton Fernandez CNP Bloating (Primary Dx); Intestinal dysbiosis; Gastroesophageal reflux disease without esophagitis 09/11/2025 Travel 09/06/2025 10:30 AM EDT Office Visit [facility] [address] [place] [address] Abdirahman, Mel, OD Redness or discharge of eye (Primary Dx) 09/06/2025 Travel 09/03/2025 Refill [facility] [address] [place] [address] Brooklyn Jalloh MD Moderate persistent asthma, unspecified whether complicated 09/02/2025 10:20 AM EDT Office Visit [facility] [address] [place] [address] Georgette Tellez DO Moderate persistent asthma with acute exacerbation (Primary Dx) 09/02/2025 Travel 08/24/2025 Orders Only [facility] [address] [place] [address] Brooklyn Jalloh MD 08/24/2025 Refill [facility] [address] [place] [address] [phone] Brooklyn Jalloh MD Other migraine without status migrainosus, not intractable 08/23/2025 Refill [facility] [address] [place] [address] Brooklyn Jalloh MD 08/20/2025 Telephone [facility] [address] [place] [address] Brooklyn Jalloh MD Med Refill 08/20/2025 Refill [facility] [address] [place] [address] Brooklyn Jalloh MD 08/18/2025 Telephone [facility] [address] [place] [address] [phone] Brooklyn Jalloh MD Medication Question 08/18/2025 Refill [facility] [address] [place] [address] Brooklyn Jalloh MD Cervical spondylosis; Degeneration of lumbar intervertebral disc 08/15/2025 Refill [facility] [address] [place] [address] [phone] Brooklyn Jalloh MD 08/13/2025 11:15 AM EDT Office Visit [facility] [address] [place] [phone] Brooklyn Jalloh MD Moderate persistent asthma without complication (Primary Dx); Acute idiopathic pericarditis; Esophageal dysphagia; Primary hypertension; Gastroesophageal reflux disease without esophagitis; Depression, recurrent ([facility]); Generalized anxiety disorder; Fibromyalgia; Calcific tendonitis of right shoulder; Degeneration of intervertebral disc of lumbar region, unspecified whether pain present 08/13/2025 Travel 08/12/2025 Telephone [facility] [address] [place] [address] [phone] Brooklyn Jalloh MD Chart Prep 08/05/2025 Refill [facility] [address] [place] [address] [phone] Brooklyn Jalloh MD 08/04/2025 Orders Only GENERIC EXTERNAL DATA DEPARTMENT Provider, Generic External Data 07/30/2025 Refill [facility] [address] [place] [address] 580[address] Brooklyn Jalloh MD 07/30/2025 Refill [facility] [address] [place] [address] 64[address] Brooklyn Jalloh MD 07/23/2025 11:00 AM EDT Office Visit [address] [address] Raffi Mendoza MD Moderate persistent asthma, unspecified whether complicated (Primary Dx) 07/23/2025 Travel 07/22/2025 Telephone [facility] [address] [place] [phone] Karley Smith MA CHARTPREP 07/22/2025 Orders Only [facility] External Provider, [facility] 07/20/2025 Telephone [facility] [address] [place] [phone] Brooklyn Jalloh MD Referral 07/19/2025 1:40 PM EDT Office Visit [facility] [address] [place] [address] Zhane Gandhi MD Chronic cough (Primary Dx); Viral URI 07/19/2025 Travel 07/13/2025 1:40 PM EDT Office Visit [facility] [address] [place] [address] Lida Francisco MD Lower abdominal pain; Acute left-sided low back pain, unspecified whether sciatica present 07/13/2025 Travel 07/11/2025 Refill [facility] [address] [place] [address] Brooklyn Jalloh MD Biliary colic 07/06/2025 2:40 PM EDT Office Visit [facility] [address] [place] [address] Zhane Gandhi MD Subacute cough (Primary Dx); Postnasal drip 07/06/2025 Travel from Last 3 Months Immunizations Immunization [...] Mass Index 32.28 10/01/2025 10:42 AM EST Plan of Treatment Upcoming Encounters Date Type Department Care Team (Late st Contact Info) Description 10/20/2025 1:30 PM EST Office Visit [facility] [address] [place] [address] Delaney Bryson [address] [place] [address] 10/29/2025 11:15 AM EST Office Visit [facility] [address] [place] [address] Brooklyn Jalloh MD [address] [place] [address] Health Maintenance Due Date Last Done Comments CT Colonography 1970 FIT DNA/Cologuard 1968 FIT 1970 FOBT 1970 Sigmoidoscopy 1970 Pneumococcal Vaccine: 50+ Years (1 of 2 - PCV) 02/25/1987 COVID-19 Vaccine ( season) 2025 11/07/2021, 03/29/2021, [...] 10/01/2023 Disability Screening 07/23/2026 07/23/2025 Tobacco Screening 10/01/2026 10/01/2025 Dental X-Ray: Full Mouth 08/25/2027 08/24/2024, 04/26 [...] 10/01/2025 2:25 PM EST Fall, initial encounter POCT URINALYSIS DIPSTICK Routine 09/20/2025 9:43 AM [...] 1:30 PM EDT Lower abdominal pain POCT GLYCATED HEMOGLOBIN, TOTAL Routine 05/07/2025 12:15 [...] Relevant to Health Maintenance Results * XR Knee 4+ Views Left (10/01/2025 2:28 PM EST) Anatomical Region Laterality Modality Lower Extremities, Knee Left [facility] 10/01/2025 2:28 PM EST Narrative 10/01/2025 2:44 PM EST [address] [address] XRay Report Signed Patient: Machelle Wooten MR#: [id number] : 1970 Acct:[id number] Age/Sex: 55 / F ADM Date: 10/01/25 Loc: HO.HHCX Attending Dr: Brooklyn Jalloh MD Ordering Physician: Shayy Ashraf NP Date of Service: 10/01/25 Procedure(s): XR knee LT 4V Accession Number(s): [id number] cc: Shayy Ashraf NP; Brooklyn Jalloh Reason [...] 10/01/25 1441 DD/ 1428 TD/TT: 10/01/25 1430 Front Office Administrator: MARIBELL Procedure Note Donotuseinterpreter, Image - 10/01/[address] [address] XRay Report Signed Patient: Machelle Wooten#: [id number] : 1970Acct:[id number] Age/Sex: 55 / FADM Date: 10/01/25 Loc: HO.HHCX Attending Dr: Brooklyn Jalloh MD Ordering Physician: Shayy Ashraf NP Date of Service: 10/01/25 Procedure(s): XR knee LT 4V Accession Number(s): [id number] cc: Shayy Ashraf NP; Brooklyn Jalloh Reason [...] 10/01/25 1441 DD/ 1428 TD/TT: 10/01/25 1430 Front Office Administrator: MARIBELL us Shayy Ashraf NP IMG XR PROCEDURES Final Result * XR Knee 4+ Views Right (10/01/2025 2:25 PM EST) Anatomical Region Laterality Modality Lower Extremities, Knee Right Radiogra phic Imaging 10/01/2025 2:25 PM EST Narrative 10/01/2025 2:44 PM EST [address] [address] XRay Report Signed Patient: Machelle Wooten MR#: [id number] : 1970 Acct:[id number] Age/Sex: 55 / F ADM Date: 10/01/25 Loc: HO.HHCX Attending Dr: Brooklyn Jalloh MD Ordering Physician: Shayy Ashraf NP Date of Service: 10/01/25 Procedure(s): XR knee RT 4V Accession Number(s): [id number] cc: Shayy Ashraf INCIDENT RESPONSE CONSULTANT; Brooklyn Jalloh Reason for Exam: known OA, [...] by: Remington Nguyen MD 10/01/2025 02:41 PM [facility] Dictated By: Remington Nguyen MD Signed By: <Electronically signed by Remington Nguyen MD in OV> 10/01/25 1441 DD/ 1425 TD/TT: 10/01/25 1430 Front Office Administrator: MARIBELL Procedure Note Donotuseinterpreter, Image - 10/01/2025 [place] [address] XRay Report Signed Patient: Machelle Wooten#: [id number] : 1970Acct:[id number] Age/Sex: 55 / FADM Date: 10/01/25 [facility]: Brooklyn Jalloh MD Ordering Physician: Shayy Ashraf NP Date of Service: 10/01/25 Procedure(s): XR knee RT 4V Accession Number(s): [id number] cc: Shayy Ashraf INCIDENT RESPONSE CONSULTANT; Brooklyn Jalloh Reason for Exam: known OA, [...] 10/01/25 1441 DD/ 1425 TD/TT: 10/01/25 1430 Front Office Administrator: MARIBELL Shayy Ashraf INCIDENT RESPONSE CONSULTANT IMG XR PROCEDURES Final Result * POCT Urinalysis (09/20/2025 9:43 AM EDT) [...] Media Lot # [id number] Lot# Expiration Date , Urine (Urine, Random) 09/20/2025 9:43 AM EDT [facility] POINT OF CARE TEST ENTER/EDIT ORDERABLES Final Result * Culture, Urine, Routine (09/20/2025 9:40 AM EDT) Only the most recent of2 resultswithin the time period is included. Urine Urine specimen obtained by clean catch procedure / Unknown 09/20/2025 9:40 AM EDT 09/20/2025 1:01 PM EDT Comment:UACC Narrative [facility] - 09/21/2025 12:34 PM EDT Urine Culture No growth. Specimen Source: Urine clean catch NIN [facility] MICROBIOLOGY - GENERAL ORD ERABLES Final Result Performing Organization Address [facility]/ZIP Co de Phone Number [facility] [address] [place] [address] [phone] * (ABNORMAL) Bacterial Vaginosis (09/20/2025 9:39 AM EDT) TRICHOMONAS VAGINALIS DETECTION BY PCR NOT DETECTED Not Detect [facility] BACTERIAL VAGINOSIS DETECTION BY PCR NEGATIVE Negative [facility] Comment:The BV organism targ ets of [...] GROUP DETECTION BY PCR DETECTED(A) Not Detect [facility] Abhishek glab krusei PCR NOT DETECTED Not Detect [facility] Swab Vaginal structure / Unknown 09/20/2025 9:39 AM EDT 09/20/2025 1:01 PM EDT Gennarichard Irizarry [facility] MICROBIOLOGY - GENERAL ORD ERABLES Final Result Performing Organization Address [facility] Co de Phone Number [facility] [address] [place] [phone] * Chlamydia/N. Gonorrhoeae RNA, TMA, Vaginal (09/20/2025 9:39 AM EDT) CT PCR NOT DETECTED Not Detect. [facility] Comment:A not detected test result does [...] psychologicalconsequences. NG PCR NOT DETECTED Not Detect. [facility] Comment:A not detected test result does [...] EDT 09/20/2025 1:01 [address] [facility] MICROBIOLOGY - GENERAL ORD ERABLES Final Result [facility] [address] [place] [address] [phone] * XR Chest 2 Views (09/02/2025 11:15 AM EDT) Only the most recent of2 resultswithin the time period is included. Anatomical Region Laterality Modality Chest Radiographic Zina ging 09/02/2025 11:1 5 AM EDT Narrative 09/02/2025 12:25 PM EDT [address] [address] XRay Report Signed Patient: Machelle Wooten MR#: [id number] : 1970 Acct:[id number] Age/Sex: 55 / F ADM Date: 09/02/25 Loc: [facility] Attending Dr: Georgette Tellez DO Ordering Physician: Georgette Tellez DO Date of Service: 09/02/25 Procedure(s): XR chest 2V Accession Number(s): [id number] cc: Georgette Tellez DO Reason for Exam: [...] 09/02/25 1222 DD/ 1115 TD/TT: 09/02/25 1120 Front Office Administrator: MARIBELL Procedure Note Donotuseinterpreter, Image - 09/02/[address] [address] XRay Report Signed Patient: Machelle Wooten#: [id number] : 1970Acct:[id number] Age/Sex: 55 / FADM Date: 09/02/25 Loc: [facility] Attending Dr: Georgette Tellez DO Ordering Physician: Georgette Tellez DO Date of Service: 09/02/25 Procedure(s): XR chest 2V Accession Number(s): [id number] cc: Georgette Tellez DO Reason for Exam: [...] Remington Nguyen MD 09/02/2025 12:22 PM EDT RP Dictated By: Remington Nguyen MD Signed By: <Electronically signed by Remington Nguyen MD in OV> 09/02/25 1222 DD/ 1115 TD/TT: 09/02/25 1120 Front Office Administrator: MARIBELL us Georgette Tellez DO IMG XR PROCEDURES Final Resu lt * Influenza A B2 ID NOW (Cano) (08/04/2025 11:48 AM EDT) IDNOW SERIAL# [id number] [facility] Influenza A Negative Negative [facility] Influenza B2 Negative Negative [facility] Influenza A B2 Note See Note [facility] Comment:The Cano ID NOW In fluenza [...] LAB MICROBIOLOGY - GENERAL ORDERABLES Final Result [facility] [address] [place] [phone] * COVID-19 ID NOW (CANO) (08/04/2025 11:48 AM EDT) IDNOW SERIAL# [id number] [facility] COVID-19 TEST Negative Negative [facility] COVID-19 NOTE See Note [facility] Comment: Results are for the identification of SARS-CoV2 RNA. TheSARS-CoV2 RNA is generally detectable in respiratory samplesduring the acute phase of infection. Positive results areindicative of the presence of SARS-CoV-2 RNA; clinicalcorrelation with patient history and other diagnosticinformation is necessary to determine patient infectionstatus. Positive results do not rule out bacterial infectionor co- infection with other viruses.Testing facilities within the [facility] and itsterritories are required to report all [...] use by authorized laboratories.Testing performed on the eco4[employer] ID NOW utilizing NAAT. 08/04/2025 11:4 8 AM EDT 08/04/2025 12:03 PM EDT us Generic External Data Provider LAB MOLECULAR JUNIE GNOSTICS ORDERABLES Final Result [facility] [address] [place] [address] [phone] * High Sensitivity Troponin I (08/04/2025 11:48 AM EDT) Only the most recent of2 resultswithin the time period is included. TROPONIN I HIGH SENSITIVITY <2.7 <3.5 - 17.0 ng/L [facility] Comment:The Cano high sens itivity Troponin-I results should beused in conjunction with other diagnostic information suchas ECG, clinical observations and information, and patientsymptoms to aid in the diagnosis of MD. 08/04/2025 11:4 8 AM EDT 08/04/2025 12:03 PM EDT Generic External Data Provider LAB BLOOD ORDERAB LES Final Result Performing Organization Address City/[facility]/ZIP Co de Phone Number [facility] [address] [place] [phone] * Urinalysis w/reflex microscopic (08/04/2025 11:48 AM EDT) Color Urine Yellow [facility] Appearance Urine Clear [facility] PH 5.5 5.0 - 9.0 [facility] Glucose Urine UA Negative Negative mg/dL [facility] Urine Blood Negative Negative [facility] Specific [place] - Urine 1.010 1.005 - 1.025 [facility] Urine Protein Negative Neg-Trace mg/dL [facility] Urine Ketones Negative Negative mg/dL [facility] Nitrite Urine Negative Negative [facility] Leukocyte Esterase Urine Negative Negative [facility] 08/04/2025 11:4 8 AM EDT 08/04/2025 12:03 PM EDT Narrative [facility] - 08/04/2025 12:08 PM EDT Urine, Clean Catch Generic External Data Provider LAB URINE ORDERAB LES Final Result Performing Organization Address [facility] Co de Phone Number [facility] [address] [place] [phone] * XR Chest 1 View (08/04/2025 10:37 AM EDT) Only the most recent of2 resultswithin the time period is included. Anatomical Region Laterality Modality Chest Radiographic Zina ging 08/04/2025 10:3 7 AM EDT Narrative 08/04/2025 10:54 AM EDT [address] [address] XRay Report Signed Patient: Machelle Wooten MR#: [id number] : 1970 Acct:[id number] Age/Sex: 55 / F ADM Date: 08/04/25 Loc: HO.ED Attending Dr: Ordering Physician: Lilly Cueto PA-C Date of Service: 08/04/25 Procedure(s): XR chest 1V Accession Number(s): [id number] cc: Lilly Cueto PA-C; Brooklyn Jalloh Reason [...] 08/04/25 1051 DD/ 1037 TD/TT: 08/04/25 1045 Front Office Administrator: Procedure Note Donotuseinterpreter, Image - 08/04/[address] [address] XRay Report Signed Patient: Machelle WootenMR#: [id number] : 1970Acct:[id number] Age/Sex: 55 / FADM Date: 08/04/25 Loc: .ED Attending Dr: Ordering Physician: Lilly Cueto PA-C Date of Service: 08/04/25 Procedure(s): XR chest 1V Accession Number(s): [id number] cc: Lilly Cueto PA-C; Brooklyn Jalloh Reason [...] 08/04/25 1051 DD/ 1037 TD/TT: 08/04/25 1045 Front Office Administrator: [facility] External Provider IMG XR PROCEDURES Final Result * (ABNORMAL) CBC auto differential (08/04/2025 9:33 AM EDT) White Blood Count 15.7(H) 4.8 - 10.8 X10*3/uL [facility] Red Blood Count 4.46 4.20 - 5.50 X10*6/uL [facility] Hemoglobin 12.3 12.0 - 16.0 g/dl [facility] Hematocrit 36.4(L) 37.0 - 47.0 % [facility] Mean Corpuscular Volume 81.6 80.0 - 98.0 fL [facility] Mean Corpuscular Hemoglobin 27.6 27.0 - 33.0 pg [facility] Mean Corpuscular HGB Conc 33.8 31.0 - 35.0 g/dl [facility] Red Cell Distribution Width 14.3 11.0 - 16.0 % [facility] Platelet Count 323 160 - 400 X10*3/uL [facility] Mean Platelet Volume 9.9 9.4 - 12.3 fL [facility] Neutrophils Percent Auto 71.1 45 - 73 % [facility] Imm Gran Pct Auto 0.3 0.0 - 0.4 % [facility] Lymphocytes Percent Auto 19.6(L) 20 - 40 % [facility] Monocytes Percent Auto 7.8 2 - 11 % [facility] Eosinophils Percent Auto 1.0 0 - 4 % [facility] Basophils Percent Auto 0.2 0 - 2 % [facility] NRBC Pct Auto 0.0 0.0 - 0.2 /100WBC [facility] Neutrophils Absolute Auto 11.2(H) 2.0 - 8.3 x10*3/uL [facility] Imm Gran Abs Auto 0.05(H) 0.00 - 0.03 X10*3/uL [facility] Lymphocytes Absolute Auto 3.1 1.2 - 4.9 X10*3/uL [facility] Monocytes Absolute Auto 1.2 0.1 - 1.2 X10*3/uL [facility] Eosinophils Absolute Auto 0.2 0.0 - 0.4 X10*3/uL [facility] Basophils Absolute Auto 0.0 0.0 - 0.2 X10*3/uL [facility] NRBC Abs Auto 0.000 0.0 - 0.012 X10*3/uL [facility] 08/04/2025 9:33 AM EDT 08/04/2025 9:35 AM EDT us Generic External Data Provider LAB BLOOD ORDERAB LES Final Result [facility] [address] [place] [phone] * Sed Rate by Modified Tonio (08/04/2025 9:33 AM EDT) Erythrocyte Sedimentation Rate 18 0 - 20 MM/HR [facility] Comment:Patients with polycy themia and many hemoglobin abnormalitiesmay have depressed sed rates whereas patients with anemiamay have elevated sed rates. 08/04/2025 9:33 AM EDT 08/04/2025 1:17 PM EDT us Generic External Data Provider LAB BLOOD ORDERAB LES Final Result Performing Organization Address City/[facility]/ZIP Co de Phone Number [facility] [address] [place] [phone] * (ABNORMAL) Basic Metabolic Panel (08/04/2025 9:33 AM EDT) Sodium 141 135 - 145 mmol/L [facility] Potassium 4.0 3.3 - 5.1 mmol/L [facility] Chloride 106 96 - 108 mmol/L [facility] Carbon Dioxide 25 22 - 29 mmol/L [facility] Anion Gap 14 12 - 20 [facility] Urea Nitrogen (BUN) 13 9 - 16 mg/dL [facility] Creatinine, Serum 0.67 0.5 - 1.4 mg/dL [facility] Creatinine Clr Calc Pharmacy 100.3 [facility] Comment:Provided height and weight: 165.1 cm,86.001 kg.eGFR (calculated from the MDRD study equation) and eCrCl(calculated from the Cockcroft-Gault equation) are based ondifferent parameters and may not yield comparable results.If eCrCl result is absurd, please check patient'sheight/weight. Estimated Glomerular Filt Rate >60 [facility] Comment:Chronic Kidney Disea se: Estimated GFR < 60 mL/min/1.78v5Xvlmdb Kidney Disease: Estimated GFR < 15 mL/min/1.73m2 Glucose 123(H) 60 - 115 mg/dL [facility] Calcium 9.2 8.4 - 10.2 mg/dL [facility] 08/04/2025 9:33 AM EDT 08/04/2025 9:35 AM EDT us Generic External Data Provider LAB BLOOD ORDERAB LES Final Result Performing Organization Address City/[facility]/ZIP Co de Phone Number [facility] [address] [place] [phone] * CTA Chest PE Protocal (07/22/2025 10:06 AM EDT) Anatomical Region Laterality Modality Body, Chest Computed Tomogra phy 07/22/2025 10:0 6 AM EDT Narrative 07/22/2025 10:51 AM EDT [place] [address] [address] Scan Report Signed Patient: Machelle Wooten MR#: [id number] : 1970 Acct:[id number] Age/Sex: 55 / F ADM Date: 07/22/25 Loc: .ED Attending Dr: Ordering Physician: Kaylie Choi Date of Service: 07/22/25 Procedure(s): CT angio chest PE protocol Accession Number(s): [id number] cc: Kaylie Choi; Brooklyn Jalloh Report Number: [id number]: Total DLP = 378.00 mGy-cm EXAMINATION: CT [...] 07/22/25 1048 DD/ 1006 TD/TT: 07/22/25 1029 Front Office Administrator: Procedure Note Donotuseinterpreter, Image - 07/22/[address] [address] [address] Scan Report Signed Patient: Machelle WootenMR#: [id number] : 1970Acct:[id number] Age/Sex: 55 / FADM Date: 07/22/25 Loc: .ED Attending Dr: Ordering Physician: Kaylie Choi Date of Service: 07/22/25 Procedure(s): CT angio chest PE protocol Accession Number(s): [id number] cc: Kaylie Choi; Brooklyn Jalloh Report Number: [id number]: Total DLP = 378.00 mGy-cm EXAMINATION: CT [...] 07/22/25 1048 DD/ 1006 TD/TT: 07/22/25 1029 Front Office Administrator: [facility] External Provider IMG CT PROCEDURES Final Result * SARS-CoV-2 RNA, Influenza A/B, and RSV RNA, Ql NAAT (07/22/2025 9:11 AM EDT) Influenza A PCR NEGATIVE Negative [facility] Influenza B PCR NEGATIVE Negative [facility] Resp Syncy Virus RNA Qual PCR NEGATIVE Negative [facility] SARS COV2 PCR NEGATIVE Negative [facility] Comment:All test results mus t [...] use by authorized laboratories.Testing performed on the [employer] GeneXpert utilizingreal-time RT-PCR.All SARS CoV2 and positive influenza A/B results arereported to [facility]. 07/22/2025 9:11 AM EDT 07/22/2025 9:15 AM EDT us Generic External Data Provider LAB MICROBIOLOGY - GENERAL ORDERABLES Final Result Performing Organization Address City/[facility]/ZIP Co de Phone Number [facility] [address] [place] [address] [phone] * (ABNORMAL) CBC (07/22/2025 9:11 AM EDT) White Blood Count 11.3(H) 4.8 - 10.8 X10*3/uL [facility] Red Blood Count 4.80 4.20 - 5.50 X10*6/uL [facility] Hemoglobin 13.0 12.0 - 16.0 g/dl [facility] Hematocrit 40.5 37.0 - 47.0 % [facility] Mean Corpuscular Volume 84.4 80.0 - 98.0 fL [facility] Mean Corpuscular Hemoglobin 27.1 27.0 - 33.0 pg [facility] Mean Corpuscular HGB Conc 32.1 31.0 - 35.0 g/dl [facility] Red Cell Distribution Width 14.4 11.0 - 16.0 % [facility] Platelet Count 327 160 - 400 X10*3/uL [facility] Mean Platelet Volume 10.3 9.4 - 12.3 fL [facility] NRBC Pct Auto 0.0 0.0 - 0.2 /100WBC [facility] NRBC Abs Auto 0.000 0.0 - 0.012 X10*3/uL [facility] 07/22/2025 9:11 AM EDT 07/22/2025 9:15 AM EDT us Generic External Data Provider LAB BLOOD ORDERAB LES Final Result Performing Organization Address City/[facility]/ZIP Co de Phone Number [facility] [address] [place] [address] [phone] * Magnesium (07/22/2025 9:11 AM EDT) Magnesium 1.9 1.6 - 2.6 mg/dL [facility] 07/22/2025 9:11 AM EDT 07/22/2025 9:15 AM EDT us Generic External Data Provider LAB BLOOD ORDERAB LES Final Result [facility] [address] [place] [address] [phone] * (ABNORMAL) Comprehensive Metabolic Panel (07/22/2025 9:11 AM EDT) Pathologist [facility] Sodium 141 135 - 145 mmol/L [facility] Potassium 3.7 3.3 - 5.1 mmol/L [facility] Chloride 106 96 - 108 mmol/L [facility] Carbon Dioxide 26 22 - 29 mmol/L [facility] Anion Gap 13 12 - 20 [facility] Urea Nitrogen (BUN) 16 9 - 16 mg/dL [facility] Creatinine, Serum 0.79 0.5 - 1.4 mg/dL [facility] Creatinine Clr Calc Pharmacy 86.6 [facility] Comment:Provided height and weight: 165.1 cm,89.1 kg.eGFR (calculated from the MDRD study equation) and eCrCl(calculated from the Cockcroft-Gault equation) are based ondifferent parameters and may not yield comparable results.If eCrCl result is absurd, please check patient'sheight/weight. Estimated Glomerular Filt Rate >60 [facility] Comment:Chronic Kidney Disea se: Estimated GFR < 60 mL/min/1.72k0Nfdnow Kidney Disease: Estimated GFR < 15 mL/min/1.73m2 Glucose 104 60 - 115 mg/dL [facility] Calcium 9.3 8.4 - 10.2 mg/dL [facility] Bilirubin, Total 0.5 0.0 - 1.0 mg/dL [facility] Aspartate Amino Transferase 27 5 - 31 U/L [facility] Alanine Aminotransferase 33(H) 0 - 31 U/L [facility] Total Protein 7.3 6.5 - 8.0 g/dL [facility] Albumin Level 4.4 3.5 - 5.0 g/dL [facility] Alkaline Phosphatase 166(H) 39 - 117 U/L [facility] 07/22/2025 9:11 AM EDT 07/22/2025 9:15 AM EDT us Generic External Data Provider LAB BLOOD ORDERAB LES Final Result Performing Organization Address [facility]/ZIP Co de Phone Number [facility] [address] [place] [phone] * Influenza B (ID NOW Rapid Molecular) (07/19/2025 1:59 PM EDT) [facility] Influenza B Negative Negative, Indeterminate [facility] Swab 07/19/2025 1:59 PM EDT Zhane Gandhi MD POINT OF CARE TEST ENTER/EDIT ORDERABLES Final Result Performing Organization Address [facility] Co de Phone Number [facility] [address] [place] [phone] * Influenza A (ID NOW Rapid Molecular) (07/19/2025 1:59 PM EDT) [facility] Influenza A Negative Negative, Indeterminate [facility] Swab 07/19/2025 1:59 PM EDT us Zhane Gandhi MD POINT OF CARE TEST ENTER/EDIT ORDERABLES Final Result Performing Organization Address [facility] Co de Phone Number [facility] [address] [place] [phone] * POCT Rapid COVID Ag (07/19/2025 1:59 PM EDT) Rapid COVID Ag Negative [facility] Swab 07/19/2025 1:59 PM EDT Zhane Gandhi MD POINT OF CARE TEST ENTER/EDIT ORDERABLES Final Result Performing Organization Address [facility] Co de Phone Number [facility] [address] [place] [address] [phone] * (ABNORMAL) POCT HGB A1C (05/07/2025 12:15 PM EDT) Pathologist [facility] Hemoglobin A1C 6.1(A) 4.0 - 6.0 % QC Media Lot # [id number] Blood 05/07/2025 12:1 5 PM EDT Result [facility] Brooklyn Jalloh MD POINT OF CARE TEST ENTER/EDIT ORDERABLES Final Result * Hepatitis C Antibody with Reflex to HCV, RNA, Quantitative, Real-Time PCR (04/02/2025 11:49 AM EDT) [facility] Hepatitis C Antibody Nonreactive Nonreactive [facility] Comment:Antibodies to HCV no t detected; does not exclude early acuteHCV infection. Blood Venous blood specimen / Unknown 04/02/2025 11:49 AM EDT 04/02/2025 1:17 PM EDT Brooklyn Jalloh MD LAB BLOOD ORDERABLES Final Res ult Performing Organization Address City/[facility]/ZIP Co de Phone Number [facility] [address] [place] [address] [phone] * HIV-1/2 Antigen and Antibodies, Fourth Generation, with Reflexes (04/02/2025 11:49 AM EDT) Pathologist [facility] HIV AB/AG Nonreactive Nonreactive [facility] Comment:HIV-1 p24 Ag and/or HIV-1/HIV-2 Ab not detected.A test result that is nonreactive does not exclude thepossibility of exposure to or infection with HIV-1 and/orHIV-2. Nonreactive results in this assay for individualswith prior exposure to HIV-1 and/or HIV-2 may be due toantigen and antibody levels that are below the limit ofdetection of this assay.The [employer] Alinity HIV Ag/Ab Combo assay result andsupplemental assay results should be interpreted inconjunction with the patient's clinical presentation,history and other laboratory results. If the results areinconsistent with clinical evidence, additional testing issuggested to confirm the result. Blood Venous blood specimen / Unknown 04/02/2025 11:49 AM EDT 04/02/2025 1:17 PM EDT us Brooklyn Jalloh MD LAB BLOOD ORDERABLES Final Res ult [facility] [address] [place] [phone] * Pap Smear (03/30/2025 12:07 PM EDT) Swab 03/30/2025 12:0 7 PM EDT 03/31/2025 6:00 AM EDT Narrative [facility] - 04/02/2025 12:35 PM EDT ----- ------- Name: Jose BarrosoMachelle rome Age/Sex: 55/F : 1970 Unit#: [id number] Attend Dr: KEILY FOREMAN Girish Re03/30/25 Status: DEP [facility] Disch: ----- ------- SPEC : [id number] RECD: 03/31/25 STATUS: ERNESTO HERNANDEZ NUM: [id number] KRYSTA: 03/30/25-[address] [facility] [address]: KEILY FOREMAN CNM ENTERED: 03/31/25 SP TYPE: Pap Smr OTHR [...] ----- ------- END OF REPORT Keily Foreman CNM LAB CYTOLOGY ORDERABLES F inal Result [facility] [address] [place] [address] [phone] * HPV DNA, Low/High Risk (03/30/2025 12:00 AM EDT) HPV High Risk Negative Negative [facility] HPV Genotype 16 Negative Negative [facility] HPV Genotype 18 Negative Negative [facility] Comment:HPV testing performe d at [facility] (CLIA#[id number]), [address] [place] [phone].Testing for HPV was performed using the Shahida [...] CNM LAB BLOOD ORDERABLES Julianne l Result [facility] [address] [place] [phone] * BI US Breast Limited Right (08/18/2024) Anatomical Region Laterality Modality Breast Right Ultrasound us Lilian Holcomb CONCRETE POURER IMG US PROCEDURES Final Result * (ABNORMAL) Colonoscopy (05/13/2023) Pathologist [facility] Colonoscopy Abnormal( A) Normal Comment:see scanned report 05/13/2023 us Brooklyn Jalloh MD HEALTH MAINTENANCE Final Resul t * (ABNORMAL) LIPID PANEL, STANDARD (10/11/2022 8:02 AM EST) Pathologist [facility] Chol/HDLC Ratio 3.7 <5.0 (calc) CONVERTED LEGACY [...] factors. LDL-C is now calculated using the Linda calculation, which is a validated novel method providing better accuracy than the Friedewald equation in the estimation of LDL-C. Mitch SS et al. ARACELI. 2013;310(19): 9574-1191 (http://Athletes' Performance.DeviceFidelity/faq/SBH659) Non-HDL Cholesterol 117 <130 mg/dL (calc) CONVERTED [...] Relevant to Health Maintenance Insurance [facility] ONE CARE < 65 T[place]IE CHANCE [id number] DENTAL - [facility] Care Teams Lawn Care Technician Relationship Specialty Start Date End Date Brooklyn Jalloh MD [address] [place] [address] PCP - General Family Medicine 07/17/21
--- OUTSIDE RECORDS SUMMARY | 2025-10-01 15:50 | XMS_ITS | Encounter Summary ---
Author Organization [employer] Address [address] [facility] 7t [place] [address] Care Team Providers Care Sumo Wrestler Name Role Phone Brooklyn Jalloh MD Primary Care Provider [phone] Encounter Details Date Type Department Care Team ([facility] st Contact Info) Description 03/19/2025 Orders Only [facility] [address] [place] [address] Brooklyn Jalloh MD [address] [place] [address] Contact with and (suspected) exposure to infections [...] Description 10/20/2025 1:30 PM EST Office Visit [facility] ADULT DENTAL [address] [place] [address] Braydon, Delaney [address] [place] [address] 10/29/2025 11:15 AM EST Office Visit [facility] [address] [place] [address] Brooklyn Jalloh MD [address] [place] [address] documented as of this encounter Procedures Procedure [...] AM EDT) T Spot TB Negative Negative [facility] Comment:A negative test resu lt [...] as aquantitative test. TS PANEL A 0 [facility] TS PANEL B 0 [facility] Negative Control Passed [facility] Positive Control Passed [facility] Comment:For additional infor luke, please refer tohttp://education.Project Colourjack.Turned On Digital/faq/UDO021(This link is being provided for informational/educational purposes only.)THIS TEST WAS PERFORMED AT:[employer] [id number] [place] [address]NWXADORMARY SNOW MD,PHD 04/02/2025 11:4 9 AM EDT 04/02/2025 1:07 PM EDT Brooklyn Jalloh MD LAB BLOOD ORDERABLES Final Res ult [facility] [address] [place] [phone] * Hepatitis C Antibody with Reflex to HCV, RNA, Quantitative, Real-Time PCR (04/02/2025 11:49 AM EDT) Hepatitis C Antibody Nonreactive Nonreactive [facility] Comment:Antibodies to HCV no t detected; does not exclude early acuteHCV infection. Blood Venous blood specimen / Unknown 04/02/2025 11:49 AM EDT 04/02/2025 1:17 PM EDT us Brooklyn Jalloh MD LAB BLOOD ORDERABLES Final Res ult Performing Organization Address [facility] de Phone Number [facility] [address] [place] [phone] * HIV-1/2 Antigen and Antibodies, Fourth Generation, with Reflexes (04/02/2025 11:49 AM EDT) HIV AB/AG Nonreactive Nonreactive [facility] Comment:HIV-1 p24 Ag and/or HIV-1/HIV-2 Ab not detected.A test result that is nonreactive does not exclude thepossibility of exposure to or infection with HIV-1 and/orHIV-2. Nonreactive results in this assay for individualswith prior exposure to HIV-1 and/or HIV-2 may be due toantigen and antibody levels that are below the limit ofdetection of this assay.The [employer] HIV Ag/Ab Combo assay result andsupplemental assay results should be interpreted inconjunction with the patient's clinical presentation,history and other laboratory results. If the results areinconsistent with clinical evidence, additional testing issuggested to confirm the result. Blood Venous blood specimen / Unknown 04/02/2025 11:49 AM EDT 04/02/2025 1:17 PM EDT us Brooklyn Jalloh MD LAB BLOOD ORDERABLES Final Res ult Performing Organization Address [facility] Co de Phone Number [facility] [address] [place] [address] [phone] documented in this encounter Visit Diagnoses Diagnosis Contact with and (suspected) exposure to infections with a predominantly sexual mode of transmission- Primary documented in this encounter Additional Health Concerns Assessment Noted Time PHQ-9 Depression Total Score: 5 03/16/20 24 11:45 AM EDT documented as of this encounter Care Teams Sumo Wrestler Relationship Specialty Start Date End Date Brooklyn Jalloh MD [address] [place] [phone] PCP - General Family Medicine 07/17/21 documented as of this encounter
--- OUTSIDE RECORDS SUMMARY | 2025-10-01 15:51 | XMS_ITS | Encounter Summary ---
Author Organization [employer] Address [address] [facility] 7t [place] [address] Care Team Providers Care Defence Intelligence Analyst Name Role Phone Brooklyn Jalloh MD Primary Care Provider [phone] Reason for Visit * Reason Comments Med Refill Encounter Details Date Type Department Care Team ([facility] st Contact Info) Description 08/18/2025 Refill [facility] [address] [place] [address] Brooklyn Jalloh MD [address] [place] [address] Cervical spondylosis; Degeneration of lumbar intervertebral disc [...] Description 10/20/2025 1:30 PM EST Office Visit [facility] ADULT DENTAL [address] [place] [address] Braydon, Delaney [address] [place] [address] 10/29/2025 11:15 AM EST Office Visit [facility] [address] [place] [address] Brooklyn Jalloh MD [address] [place] [address] documented as of this encounter Visit Diagnoses Diagnosis Cervical spondylosis Cervical spondylosis without myelopathy Degeneration of lumbar intervertebral disc Degeneration of lumbar or lumbosacral intervertebral disc documented in this encounter Additional Health Concerns Assessment Noted Time PHQ-9 Depression Total Score: 19 025 11:41 AM EDT documented as of this encounter Care Teams Defence Intelligence Analyst Relationship Specialty Start Date End Date Brooklyn Jalloh MD [address] [place] [address] PCP - General Family Medicine 07/17/21 documented as of this encounter
--- OUTSIDE RECORDS SUMMARY | 2025-10-01 15:51 | XMS_ITS | Encounter Summary ---
Author Organization [employer] Address [address] [facility] [address] 7[address] [place] [address] Care Team Providers Care Cartography Supervisor Name Role Phone Brooklyn Jalloh MD Primary Care Provider [phone] Encounter Details Date Type Department Care Team (Late st Contact Info) Description 12/22/2023 Orders Only [facility] [address] [place], [place] [phone] Brooklyn Jalloh MD [address] [place], [place] [phone] Bronchitis (Primary Dx) Social History Tobacco Use [...] Visit [facility] ADULT DENTAL [address] [place] [address] Braydon, Delaney [address] [place] [address] 10/29/2025 11:15 AM EST Office Visit [facility]INE [address] [place] [address] Brooklyn Jalloh MD [address] [place] [address] documented as of this encounter Procedures Procedure Name Priority Date/Time Associated Diagnosis Comments CBC WITH AUTO DIFFERENTIAL Routine 12/25/2023 12:28 PM EST Bronchitis documented in this encounter Results * (ABNORMAL) CBC auto differential (12/25/2023 12:28 PM EST) White Blood Count 15.4(H) 4.8 - 10.8 X10*3/uL [facility] Red Blood Count 5.11 4.20 - 5.50 X10*6/uL [facility] Hemoglobin 13.7 12.0 - 16.0 g/dl [facility] Hematocrit 42.6 37.0 - 47.0 % [facility] Mean Corpuscular Volume 83.4 80.0 - 98.0 fL [facility] Mean Corpuscular Hemoglobin 26.8(L) 27.0 - 33.0 pg [facility] Mean Corpuscular HGB Conc 32.2 31.0 - 35.0 g/dl [facility] Red Cell Distribution Width 13.9 11.0 - 16.0 % [facility] Platelet Count 442(H) 160 - 400 X10*3/uL [facility] Mean Platelet Volume 10.1 9.4 - 12.3 fL [facility] Neutrophils Percent Auto 71.8 45 - 73 % [facility] Imm Gran Pct Auto 0.5(H) 0.0 - 0.4 % [facility] Lymphocytes Percent Auto 20.8 20 - 40 % [facility] Monocytes Percent Auto 6.7 2 - 11 % [facility] Eosinophils Percent Auto 0.1 0 - 4 % [facility] Basophils Percent Auto 0.1 0 - 2 % [facility] NRBC Pct Auto 0.0 0.0 - 0.2 /100WBC [facility] Neutrophils Absolute Auto 11.0(H) 2.0 - 8.3 x10*3/uL [facility] Imm Gran Abs Auto 0.08(H) 0.00 - 0.03 X10*3/uL [facility] Lymphocytes Absolute Auto 3.2 1.2 - 4.9 X10*3/uL [facility] Monocytes Absolute Auto 1.0 0.1 - 1.2 X10*3/uL [facility] Eosinophils Absolute Auto 0.0 0.0 - 0.4 X10*3/uL [facility] Basophils Absolute Auto 0.0 0.0 - 0.2 X10*3/uL [facility] NRBC Abs Auto 0.000 0.0 - 0.012 X10*3/uL [facility] Blood Venous blood specimen / Unknown 12/25/2023 12:28 PM EST 12/25/2023 1:09 PM EST Brooklyn Jalloh MD LAB BLOOD ORDERABLES Final Res ult [facility] [address] [place] [address] [phone] documented in this encounter Visit Diagnoses Diagnosis Bronchitis- Primary Bronchitis, not specified as acute or chronic documented in this encounter Additional Health Concerns Assessment Noted Time PHQ-9 Depression Total Score: 6 02/05/20 23 11:27 AM EDT documented as of this encounter Care Teams Cartography Supervisor Relationship Specialty Start Date End Date Brooklyn Jalloh MD [address] [place] [address] PCP - General Family Medicine 07/17/21 documented as of this encounter
--- OUTSIDE RECORDS SUMMARY | 2025-10-01 15:51 | XMS_ITS | Encounter Summary ---
Author Organization [employer] Address [address] [facility] 7t [place] [address] Care Team Providers Care Wetlands Conservation Laborer Name Role Phone Brooklyn Jalloh MD Primary Care Provider [phone] Reason for Visit * Reason Comments Med Refill Encounter Details Date Type Department Care Team ([facility] st Contact Info) Description 08/05/2025 Refill [facility] [address] [place] [address] Brooklyn Jalloh MD [address] [place] [address] Social History Tobacco Use Types Packs/Day Years [...] 10/20/2025 1:30 PM EST Office Visit [facility] ADULT DENTAL [address] [place] [address] David Brysonaris [address] [place] [address] 10/29/2025 11:15 AM EST Office Visit [facility] [address] [place] [address] Brooklyn Jalloh MD [address] [place] [address] documented as of this encounter Visit Diagnoses Not on filedocumented in this encounter Additional Health Concerns Assessment Noted Time PHQ-9 Depression Total Score: 14 025 12:17 PM EDT documented as of this encounter Care Teams Wetlands Conservation Laborer Relationship Specialty Start Date End Date Brooklyn Jalloh MD [address] [place] [phone] PCP - General Family Medicine 07/17/21 documented as of this encounter
--- OUTSIDE RECORDS SUMMARY | 2025-10-01 15:51 | XMS_ITS | Encounter Summary ---
Author Organization [employer] Address [address] [facility] 7t [place] [address] Care Team Providers Care Sanitary Aide Name Role Phone Brooklyn Jalloh MD Primary Care Provider [phone] Encounter Details Date Type Department Care Team (Late Contact Info) Description 11/12/2022 Orders Only [facility] MED[facility]INE [address] [place] [address] Brooklyn Jalloh MD [address] [place] [address] Social History Tobacco Use Types Packs/Day Years [...] 1:30 PM EST Office Visit [facility] ADULT DENTAL [address] [place] [address] Delaney Bryson [address] [place] [address] 10/29/2025 11:15 AM EST Office Visit [facility] MEDICINE [address] [place] [address] Brooklyn Jalloh MD [address] [place], [place] [phone] documented as of this encounter Visit Diagnoses Not on filedocumented in this encounter Care Teams Sanitary Aide Relationship Specialty Start Date End Date Brooklyn Jalloh MD [address] [place], [place] [phone] PCP - General Family Medicine 07/17/21 documented as of this encounter
--- OUTSIDE RECORDS SUMMARY | 2025-10-01 15:51 | XMS_ITS | Encounter Summary ---
Author Organization [employer] [facility] Address 75 [facility] 7t [place] [address] Care Team Providers Care Jack Prizer Name Role Phone Brooklyn Jalloh MD Primary Care Provider [phone] Encounter Details Date Type Department Care Team (Latest Contact Info) Description 05/12/2019 Abstract [facility] CONVERSIONS Dental, Provider, DDS Social History [...] Description 10/20/2025 1:30 PM EST Office Visit [facility] ADULT DENTAL [address] [place] [address] Braydon, Delaney [address] [place] [address] 10/29/2025 11:15 AM EST Office Visit [facility] MEDICINE [address] [place] [address] Brooklyn Jalloh MD [address] [place] [address] documented as of this encounter Visit Diagnoses Not on filedocumented in this encounter Care Teams Jack Prizer Relationship Specialty Start Date End Date Brooklyn Jalloh MD [address] [place] [phone] PCP - General Family Medicine 07/17/21 documented as of this encounter
--- OUTSIDE RECORDS SUMMARY | 2025-10-01 15:51 | XMS_ITS | Encounter Summary ---
Author Organization [employer] Address [address] [facility] 7t [place] [address] Care Team Providers Care Well Shooter Name Role Phone Brooklyn Jalloh MD Primary Care Provider [phone] Reason for Visit * Reason Comments Med Refill Encounter Details Date Type Department Care Team ([facility] st Contact Info) Description 08/20/2025 Refill [facility] MED[facility]INE [address] [place] [address] Brooklyn Jalloh MD [address] [place] [address] Social History Tobacco Use Types Packs/Day Years [...] [facility] ADULT DENTAL [address] [place] [address] David Brysonaris [address] [place] [address] 10/29/2025 11:15 AM EST Office Visit [facility] MEDICINE [address] [place] [address] Brooklyn Jalloh MD [address] [place] [address] documented as of this encounter Visit Diagnoses Not on filedocumented in this encounter Additional Health Concerns Assessment Noted Time PHQ-9 Depression Total Score: 19 025 11:41 AM EDT documented as of this encounter Care Teams Well Shooter Relationship Specialty Start Date End Date Brooklyn Jalloh MD [address] [place] [phone] PCP - General Family Medicine 07/17/21 documented as of this encounter
--- OUTSIDE RECORDS SUMMARY | 2025-10-01 15:51 | XMS_ITS | Encounter Summary ---
Author Organization [employer] Address [address] [facility] [address] 7t [place] [address] Care Team Providers Care Pond Sawyer Name Role Phone Brooklyn Jalloh MD Primary Care Provider [phone] Encounter Details Date Type Department Care Team (Late st Contact Info) Description 03/10/2024 Orders Only [facility] MEDICINE [address] [place], [place] [phone] Brooklyn Jalloh MD [address] [place] [address] Social History Tobacco Use Types Packs/Day Years [...] Description 10/20/2025 1:30 PM EST Office Visit [facility] ADULT DENTAL [address] [place], [place] [phone] Braydon, Delaney [address] [place] [address] 10/29/2025 11:15 AM EST Office Visit [facility] MEDICINE [address] [place] [address] Brooklyn Jalloh MD [address] [place] [address] documented as of this encounter Visit Diagnoses Not on filedocumented in this encounter Additional Health Concerns Assessment Noted Time PHQ-9 Depression Total Score: 6 02/05/20 23 11:27 AM EDT documented as of this encounter Care Teams Pond Sawyer Relationship Specialty Start Date End Date Brooklyn Jalloh MD [address] [place] [address] PCP - General Family Medicine 07/17/21 documented as of this encounter
--- OUTSIDE RECORDS SUMMARY | 2025-10-01 15:51 | XMS_ITS | Encounter Summary ---
Author Organization [employer] Address [address] [facility] 7t [place] [address] Care Team Providers Care Hay Stacker Name Role Phone Brooklyn Jalloh MD Primary Care Provider [phone] Reason for Referral * Consultation (Routine) - Closed Specialty Diagnoses / Procedures Referred By Tenzin ahumada Referred To Contact Orthopaedic Surgery Diagnoses Primary osteoarthritis of both knees Brooklyn Jalloh MD [address] [place] [address] Phone: tel: fax: [facility] [address] [place] [address] Phone: tel: Referral ID Status Reason Start Date Expiration Date V isits Requested Visits Authorized [id number] Closed Specialty Services Required 02/18/2024 02/17/2025 1 1 Encounter Details Date Type Department Care Team (Late st Contact Info) Description 02/18/2024 Orders Only [facility] MEDICINE [address] [place] [address] Brooklyn Jalloh MD [address] [place] [address] Primary osteoarthritis of both knees (Primary Dx) [...] Office Visit [facility] ADULT DENTAL [address] [place] [address] Delaney Bryson 230 [place] [address] 10/29/2025 11:15 AM EST Office Visit [facility] MEDICINE [address] [place] [address] Brooklyn Jalloh MD 230 [place] [address] Scheduled Referrals Name Type Priority Associated Diagnoses [...] PM EDT Narrative 03/09/2024 2:27 PM EDT [address] [address] XRay Report Signed Patient: Machelle Wooten MR#: [id number] : 1970 Acct:[id number] Age/Sex: 54 / F ADM Date: 03/09/24 Loc: HO.ED Attending Dr: Ordering Physician: Zack Lainez Date of Service: 03/09/24 Procedure(s): XR chest 2V Accession Number(s): [id number] cc: Brooklyn Jalloh; Zack Lainez EXAMINATION: XR [...] in OV> 03/09/24 1424 DD/ 1408 TD/TT: Drill Rig Operator Helper: CLEO Procedure Note Donotuseinterpreter, Image - 03/09/2024 [facility] [address] [place] [address] XRay Report Signed Patient: Machelle WootenMR#: [id number] : 1970Acct:[id number] Age/Sex: 54 / FADM Date: 03/09/24 Loc: .ED Attending Dr: Ordering Physician: Zack Lainez Date of Service: 03/09/24 Procedure(s): XR chest 2V Accession Number(s): [id number] cc: Brooklyn Jalloh; Zack Lainez EXAMINATION: XR [...] DO inOV> 03/09/24 1424 DD/ 1408 TD/TT: Drill Rig Operator Helper: CLEO [facility] External Provider IMG XR PROCEDURES Edited Result - Final documented in this encounter Visit Diagnoses Diagnosis Primary osteoarthritis of both knees- Primary documented in this encounter Additional Health Concerns Assessment Noted Time PHQ-9 Depression Total Score: 6 02/05/20 23 11:27 AM EDT documented as of this encounter Care Teams Hay Stacker Relationship Specialty Start Date End Date Brooklyn Jalloh MD [address] [place] [address] PCP - General Family Medicine 07/17/21 documented as of this encounter
--- OUTSIDE RECORDS SUMMARY | 2025-10-01 15:51 | XMS_ITS | Encounter Summary ---
Author Organization [employer] Address [address] [facility] 7t [place] [address] Care Team Providers Care Humanities Instructor Name Role Phone Brooklyn Jalloh MD Primary Care Provider [phone] Reason for Visit * Reason Comments Med Refill Encounter Details Date Type Department Care Team ([facility] st Contact Info) Description 08/23/2025 Refill [facility] MEDICINE [address] [place] [address] Brooklyn Jalloh MD 230 [place] [address] Social History Tobacco Use Types Packs/Day Years [...] 10/20/2025 1:30 PM EST Office Visit [facility] ADULT DENTAL [address] [place] [address] David Brysonaris [address] [place] [address] 10/29/2025 11:15 AM EST Office Visit [facility] MEDICINE [address] [place] [address] Brooklyn Jalloh MD [address] [place] [address] documented as of this encounter Visit Diagnoses Not on filedocumented in this encounter Additional Health Concerns Assessment Noted Time PHQ-9 Depression Total Score: 19 025 11:41 AM EDT documented as of this encounter Care Teams Humanities Instructor Relationship Specialty Start Date End Date Brooklyn Jalloh MD [address] [place] [address] PCP - General Family Medicine 07/17/21 documented as of this encounter
--- OUTSIDE RECORDS SUMMARY | 2025-10-01 15:51 | XMS_ITS | Encounter Summary ---
Author Organization [employer] Address [address] [facility] 7t [place] [address] Care Team Providers Care Off Premise Service Representative Name Role Phone Brooklyn Jalloh MD Primary Care Provider [phone] Encounter Details Date Type Department Care Team (Late st Contact Info) Description 08/24/2025 Orders Only [facility] MEDICINE [address] [place] [address] Brooklyn Jalloh MD 230 [place] [address] Social History Tobacco Use Types Packs/Day Years [...] 1:30 PM EST Office Visit [facility] ADULT DENTAL 230 [place] [address] Braydon, Delaney [address] [place] [address] 10/29/2025 11:15 AM EST Office Visit [facility] MEDICINE [address] [place] [address] Brooklyn Jalloh MD [address] [place] [address] documented as of this encounter Visit Diagnoses Not on filedocumented in this encounter Additional Health Concerns Assessment Noted Time PHQ-9 Depression Total Score: 19 025 11:41 AM EDT documented as of this encounter Care Teams Off Premise Service Representative Relationship Specialty Start Date End Date Brooklyn Jalloh MD [address] [place] [address] PCP - General Family Medicine 07/17/21 documented as of this encounter
--- OUTSIDE RECORDS SUMMARY | 2025-10-01 15:51 | XMS_ITS | Encounter Summary ---
Author Organization [employer] [facility] Address [address] [facility] 7t [place] [address] Care Team Providers Care Director Inbound Sales Name Role Phone Brooklyn Jalloh MD Primary Care Provider [phone] Encounter Details Date Type Department Care Team (Latest Contact Info) Description 04/06/2021 Abstract [facility] CONVERSIONS Dental, Provider, DDS Social [...] 1:30 PM EST Office Visit [facility] ADULT DENTAL [address] [place] [address] BraydonDelaney ramos [address] [place] [address] 10/29/2025 11:15 AM EST Office Visit [facility] MEDICINE 230 [place] [address] Brooklyn Jalloh MD 230 [place] [address] documented as of this encounter Visit Diagnoses Not on filedocumented in this encounter Care Teams Director Inbound Sales Relationship Specialty Start Date End Date Brooklyn Jalloh MD [address] [place] [address] PCP - General Family Medicine 07/17/21 documented as of this encounter
--- OUTSIDE RECORDS SUMMARY | 2025-10-01 15:51 | XMS_ITS | Encounter Summary ---
Author Organization [employer] [facility] Address [address] [facility] 7t [place] [address] Care Team Providers Care Machine Stripper Cutter Name Role Phone Brooklyn Jalloh MD Primary Care Provider [phone] Encounter Details Date Type Department Care Team (Latest Contact Info) Description 06/27/2022 Abstract [facility] CONVERSIONS Dental, Provider, DDS Social History Tobacco [...] Description 10/20/2025 1:30 PM EST Office Visit [facility] ADULT DENTAL 230 [place] [address] Braydon, Delaney [address] [place] [address] 10/29/2025 11:15 AM EST Office Visit [facility] MEDICINE 230 [place] [address] Brooklyn Jalloh MD [address] [place] [address] documented as of this encounter Visit Diagnoses Not on filedocumented in this encounter Care Teams Machine Stripper Cutter Relationship Specialty Start Date End Date Brooklyn Jalloh MD [address] [place] [address] PCP - General Family Medicine 07/17/21 documented as of this encounter
== END 2025-10-01 14:02 | disposition home or self-care (01) ==
LOC: HO.HHCX 14:01
PROVIDERS: PCP General Practice; Visit Provider General Practice
DX: M17.0 Bilateral primary osteoarthritis of knee (principal); Z91.81 History of falling
CPT/HCPCS: 73564

== ENCOUNTER → 2025-10-01 14:07 | Outpatient (BNV) | payer OTHER, SELFPAY | PROVIDERS: PCP General Practice; Visit Provider Radiology Diagnostic Ultrasound | DX: M17.0 Bilateral primary osteoarthritis of knee (principal); M25.461 Effusion, right knee; Z04.3 Encounter for examination and observation following other accident | CPT/HCPCS: 73564 ==

== ENCOUNTER → 2025-10-05 12:48 | Outpatient (REF) | payer OTHER, SELFPAY ==
--- OUTSIDE RECORDS SUMMARY | 2025-10-01 10:40 | XMS_ITS | Encounter Summary ---
Author Organization [employer] Address [address] [facility] [address] [place] [address] Care Team Providers Care Membership Solicitor Name Role Phone Brooklyn Jalloh MD Primary Care Provider [phone] Reason for Referral * Consultation (Urgent) - Authorized Specialty Diagnoses / Procedures Referred By Tenzin ahumada Referred To Contact Orthopaedic Surgery Diagnoses Fall, initial encounter Shayy Ashraf NP [address] [place] [address] Phone: tel: fax: [facility] [address] [place] [address] Phone: tel: Referral ID Status Reason Start Date Expiration Date Visits Requested Visits Authorized [id number] Authorized Specialty Services Required 10/01/2025 10/01/2026 1 1 Reason for Visit * Reason Comments Fall Encounter Details Date Type Department Care Team (Latest Contact Info) Description 10/01/2025 10:40 AM EST Office Visit [facility] [address] [place] [phone] Shayy Ashraf NP [address] [place] [address] [phone] Fall, initial encounter (Primary Dx); Primary osteoarthritis of both knees Social History Tobacco Use Types Packs/Day Years [...] your housing situation today? I have stella marli 03/05/[address] you li [...] Sign Reading Time Taken Comments Blood Pressure 138/76 10/01/2025 10:42 AM EST Pulse 85 10/01/2025 10:42 AM EST Temperature 36.9 C (98.4 F) 10/01/2025 10:42 AM EST Respiratory Rate 17 10/01/2025 10:42 AM EST Oxygen Saturation 97% 10/01/2025 10:42 AM EST Inhaled Oxygen Concentration - - Weight 88 kg (194 lb) 10/01/2025 10:42 AM EST Height 165.1 cm (5' 5 ) 10/01/2025 10:42 AM EST Body Mass Index 32.28 10/01/2025 10:42 AM EST documented in this encounter Progress Notes * Shayy Ashraf, TECHNICAL SUPPORT SPECIALIST - 10/01/2025 10:40 AM EST Machelle Barroso is a 55 y.o. female who presents to the office for Chief Complaint Patient presents with Fall Problem List[1] Medical History[2] Allergies[3] Machelle Barroso, 55-year-old female - Fell yesterday, landing on both knees, resulting in increased knee pain - Pre-existing pericarditis, currently managed with colchicine - Increased chest pain following the fall - Wrist pain reported after the fall - Using Motrin for inflammation - Son is injured and unable to descend stairs, requiring assistance, which contributed to delay in seeking medical attention after the fall Review of Systems Respiratory: Negative for apnea and chest tightness. Cardiovascular: Negative for chest pain and leg swelling. Musculoskeletal: Positive for arthralgias, back pain and joint swelling. BP 138/76 (BP Location: Right arm, Patient Position: Sitting, BP Cuff Size: Adult) Pulse 85 Temp 98.4 ??F (36.9 ??C) (Oral) Resp 17 Ht 5' 5 (1.651 m) Wt 194 lb (88 kg) LMP (LMP Unknown) SpO2 97% BMI 32.28 kg/m?? Physical Exam Vitals reviewed. Constitutional: Appearance: She is obese. HENT: Head: Normocephalic and atraumatic. Nose: Nose normal. Eyes: Conjunctiva/sclera: Conjunctivae normal. Cardiovascular: Rate and Rhythm: Normal rate and regular rhythm. Pulmonary: Effort: Pulmonary effort is normal. Breath sounds: Normal breath sounds. Musculoskeletal: General: Swelling and tenderness present. Cervical back: Normal range of motion and neck supple. Neurological: General: No focal deficit present. Mental Status: She is alert. - CARDIOVASCULAR: Heart sounds normal. - MUSCULOSKELETAL: Bilateral knee pain with contusion; able to bend knees; pain in the wrist noted. Results: Assessment & Plan Fall, initial encounter Orders: Referral to Orthopaedic Surgery; Future XR Knee 4+ Views Right; Future XR Knee 4+ Views Left; Future Primary osteoarthritis of both knees Assessment & Plan Fall, initial encounter: - Sustained a fall on September 30, 2025, resulting in bilateral knee pain and ecchymosis. No evidence of fracture on initial assessment, but further evaluation required. - Ordered bilateral knee X-rays. Provided bilateral knee braces. Advised to continue Motrin for inflammation. Referral provided as requested. Chest pain: - Increased chest pain following the fall. No acute cardiac findings on auscultation. - Continue current colchicine regimen. Monitor for worsening symptoms. Prescription - Ibuprofen (Motrin) for inflammation, 3 days Current Medications[4] Based on our discussion, I have outlined the following instructions for you: - You will need to get X-rays for both of your knees as ordered. - Please wear the knee braces that were given to you on both knees. - Keep taking Motrin as you have been to help with swelling and pain. - Follow up with the specialist or service you were referred to, as requested. - Keep taking colchicine as you have been. - Watch for any symptoms getting worse, such as more pain, swelling, or any new problems, and let your healthcare provider know if this happens. Thank you again for your visit, and we look forward to supporting you in your journey to better health. This note was drafted using Ambient (AI) technology. The patient/patient's guardian has been informed and has consented to the use of this technology: Yes Visit Conducted in: South Korean Translation by: Provided by [facility] staff member Lance [1] Patient Active Problem List Diagnosis Anxiety disorder Arthritis of right knee Biliary colic Cervical spondylosis Cholelithiasis without obstruction Degeneration of lumbar intervertebral disc HTN (hypertension) Acid reflux H/O: hysterectomy Fibromyalgia History of cholecystectomy HLD (hyperlipidemia) Osteoarthritis Prediabetes Scoliosis Trigger finger Benign breast disease Urinary incontinence Elevated alkaline phosphatase level Depression, recurrent (CMS/HCC) Calcific tendonitis of right shoulder Precordial pain Bilateral tinnitus Other pruritus Sensorineural hearing loss (SNHL) of both ears Oropharyngeal candidiasis COPD with acute exacerbation (CMS/HCC) ([facility]) Screening examination for STI Moderate persistent asthma Acute left-sided low back pain Acute idiopathic pericarditis Vaginal discharge Vaginal candidiasis Fall [2] Past Medical History: Diagnosis Date Anxiety Arthritis Asthma Hypertension Obstructive sleep apnea syndrome 12/04/2021 Prediabetes [3] Allergies Allergen Reactions Fish Allergy Unknown Fish (substance) Shellfish Allergy Other reaction(s): rash [4] Current Outpatient Medications: acetaminophen (Tylenol 8 Hour) 650 MG ER tablet, TAKE 1 TABLET BY MOUTH EVERY 6 HOURS NEEDED SWALLOW WHOLE DO NOT BREAK, CRUSH, DISSOLVE OR CHEW, Disp: 90 tablet, Rfl: 3 albuterol (2.5 MG/3ML) 0.083% nebulizer solution, INHALE 1 AMPULE USING A NEBULIZER EVERY 4 HOURS NEEDED FOR WHEEZING OR SHORTNESS OF BREATH, Disp: 90 mL, Rfl: 11 albuterol 108 (90 Base) MCG/ACT inhaler, Inhale 2 puffs every 4 (four) hours if needed for wheezingor shortness of breath., Disp: 18 g, Rfl: 2 amoxicillin-clavulanate (Augmentin) 875-125 MG tablet, take 1 tablet by mouth twice daily until finished, Disp: , Rfl: ioafuoc-slvcwmoylngbv-weixsbiw (Pain Reliever Plus) 250-250-65 MG tablet, Take 1 tablet by mouth every 6 (six) hours if needed for headaches., Disp: 30 tablet, Rfl: 3 atorvastatin (Lipitor) 40 MG tablet, Take 1 tablet (40 mg) by mouth Once per day., Disp: 90 tablet,Rfl: 3 baclofen (Lioresal) 10 MG tablet, Take 1 tablet (10 mg) by mouth 3 times daily., Disp: 90 tablet, Rfl: 2 busPIRone (Buspar) 10 MG tablet, Take 10 mg by mouth 2 times daily., Disp: , Rfl: cholecalciferol (Vitamin D-3) 25 MCG tablet, TAKE 1 TABLET BY MOUTH EVERY DAY, Disp: 90 tablet, Rfl: 3 clotrimazole (Lotrimin) 1 % cream, Apply topically 2 times daily for 28 days., Disp: 30 g, Rfl: 5 Colchicine 0.6 MG capsule, TAKE 1 CAPSULE BY MOUTH EVERY DAY FOR 4 MONTHS, Disp: , Rfl: Diclofenac Sodium 1 % gel, APPLY 2 GRAMS TO AFFECTED AREA(S) UP TO FOUR TIMES DAILY, Disp: 100 g, Rfl: 1 docusate sodium (Colace) 100 MG capsule, TAKE 1 CAPSULE BY MOUTH TWICE DAILY NEEDED FOR CONSTIPATION, Disp: 180 capsule, Rfl: 0 estradiol (Estrace) 0.1 MG/GM vaginal cream, 1g vaginally nightly x 14 days, then 1 g vaginally twice a week, Disp: 42.5 g, Rfl: 2 famotidine (Pepcid) 20 MG tablet, Take 1 tablet (20 mg) by mouth 2 times daily., Disp: 60 tablet, Rfl: 11 fexofenadine (Elodia) 180 MG tablet, Take 1 tablet (180 mg) by mouth if needed each day (Allergies)., Disp: 90 tablet, Rfl: 3 fluocinolone (DermOtic) 0.01 % ear drops, APPLY 4 DROPS IN EACH EAR TWICE DAILY FOR ONE WEEK THEN USE UP TO TWICE A WEEK NEEDED, Disp: , Rfl: FLUoxetine (PROzac) 20 MG capsule, Take 40 mg by mouth in the morning., Disp: , Rfl: fluticasone (Flonase) 50 MCG/ACT nasal spray, INSTILL 2 SPRAYS IN EACH NOSTRIL ONCE DAILY IN THE MORNING, Disp: 16 g, Rfl: 3 gabapentin (Neurontin) 100 MG capsule, TAKE 1 CAPSULE BY MOUTH EVERY DAY, Disp: 30 capsule, Rfl: 11 glucose blood (FREESTYLE LITE) test strip, 1 each by Other route Once per day., Disp: 100 each, Rfl: 6 HealthyLax 17 g packet, DISSOLVE 1 PACKET IN 8 OUNCES OF WATER, JUICE, COFFEE OR TEA AND DRINK BY MOUTH EVERY DAY NEEDED FOR CONSTIPATION, Disp: 30 packet, Rfl: 6 ibuprofen 800 MG tablet, Take 1 tablet by mouth every 6 (six) hours during the day., Disp: , Rfl: ipratropium (Atrovent) 0.06 % nasal spray, PLEASE SEE ATTACHED FOR DETAILED DIRECTIONS, Disp: , Rfl: ketoconazole (NIZOral) 2 % cream, , Disp: , Rfl: Ketotifen Fumarate 0.035 % solution, Administer 1 drop into affected eye(s) in the morning and 1 drop in the evening., Disp: 10 mL, Rfl: 2 levoFLOXacin (Levaquin) 750 MG tablet, Take 1 tablet by mouth Once per day., Disp: , Rfl: lidocaine (Lidoderm) 5 % patch, Apply 1 patch topically Once per day. Remove & discard patch within 12 hours or as directed by MD., Disp: 30 patch, Rfl: 1 lidocaine (Lidoderm) 5 % patch, Apply 1 patch topically Once per day. Remove & discard patch within 12 hours or as directed by MD., Disp: 30 patch, Rfl: 1 lisinopril 5 MG tablet, TAKE 1 TABLET BY MOUTH EVERY DAY, Disp: 90 tablet, Rfl: 0 metFORMIN, OSM, (Fortamet) 500 MG 24 hr tablet, Take 1 tablet (500 mg) by mouth with evening meal. Do not crush, chew, or split., Disp: 90 tablet, Rfl: 3 Multiple Vitamin (Multivitamin) tablet, TAKE 1 TABLET BY MOUTH EVERY MORNING, Disp: 90 tablet, Rfl:3 nortriptyline (Pamelor) 10 MG capsule, TAKE 1 CAPSULE BY MOUTH EVERY DAY AT BEDTIME NEEDED FOR BACK PAIN, Disp: 90 capsule, Rfl: 3 omeprazole (PriLOSEC) [address] capsule, TAKE 1 CAPSULE BY MOUTH ONCE DAILY NEEDED FOR HEARTBURN,Disp: 90 capsule, Rfl: 3 predniSONE (Deltasone) 10 MG tablet, Take 6 tabs PO daily x 2 days then 5 tabs x 2 days then 4 tabsx 2 days then 3 tabs x 2 days then 2 tabs x 2 days then 1 tab x 2 days then 1/2 tab x 2 days, Disp:43 tablet, Rfl: 0 Probiotic, Lactobacillus, capsule, Take 1 capsule by mouth Once per day., Disp: 30 capsule, Rfl: 3 Respiratory Therapy Supplies (Adult Aerosol Mask) [facility], USE DIRECTED WITH NEBULIZER, Disp: , Rfl: Respiratory Therapy Supplies (Nebulizer/Tubing/Mouthpiece) kit, To be used with Nebulizer, Disp: 1 kit, Rfl: 0 simethicone (Mylicon) 80 MG chewable tablet, CHEW and SWALLOW 1 TABLET BY MOUTH EVERY 8 HOURS NEEDED FOR GAS, Disp: 90 tablet, Rfl: 3 sucralfate (Carafate) 1 g tablet, DISSOLVE 1 TABLET IN CAPFUL OF WATER & SWALLOW TWICE DAILY, Disp: , Rfl: traZODone (Desyrel) 50 MG tablet, Take 1 tablet by mouth in the morning., Disp: , Rfl: Trelegy Ellipta 200-62.5-25 MCG/ACT aerosol powder , INHALE 1 PUFF BY MOUTH EVERY DAY AT THE SAME TIME RINSE MOUTH AFTER USING, Disp: , Rfl: triamcinolone (Kenalog) 0.1 % cream, MIX WITH cerave AND APPLY A THIN LAYER TO AFFECTED AREA(S) TWICE DAILY DIRECTED, Disp: 80 g, Rfl: 3 TRUEplus Lancets 33G misc, Apply 1 each topically Once per day., Disp: 100 each, Rfl: 6 documented in this encounter Miscellaneous Notes * Assessment & Plan Note - Shayy Ashraf NP - 10/01/2025 10:40 AM ESTAssociated Problem(s): Fall Orders: Referral to Orthopaedic Surgery; Future XR Knee 4+ Views Right; Future XR Knee 4+ Views Left; Future * Assessment & Plan Note - Shayy Ashraf NP - 10/01/2025 10:40 AM ESTAssociated Problem(s): Osteoarthritis documented in this encounter Plan of Treatment Upcoming Encounters Date Type Department Care Team (Late st Contact Info) Description 10/20/2025 1:30 PM EST Office Visit [facility] [address] [place] [address] [place], [place] [address] [place] [address] 10/29/2025 11:15 AM EST Office Visit [facility] [address] [place] [address] Brooklyn Jalloh MD [address] [place] [address] Scheduled Referrals Name Type Priority Associated Diagnoses Order Schedule Referral to Orthopaedic Surgery Outpatient Referral Urgent Fall, initial encounter Expected: 10/01/2025 (Approximate), Expires: 10/01/2026 documented as of this encounter Procedures Procedure Name Priority Date/Time Associated Diagnosis Comments XR KNEE 4+ VIEWS LEFT Routine 10/01/2025 2:28 PM EST Fall, initial encounter XR KNEE 4+ VIEWS RIGHT Routine 10/01/2025 2:25 PM EST Fall, initial encounter documented in this encounter Results * XR Knee 4+ Views Left (10/01/2025 2:28 PM EST) Anatomical Region Laterality Modality Lower Extremities, Knee Left [facility] 10/01/2025 2:28 PM EST Narrative 10/01/2025 2:44 PM EST [address] [address] XRay Report Signed Patient: Machelle Wooten MR#: [id number] : 1970 Acct:[id number] Age/Sex: 55 / F ADM Date: 10/01/25 [facility]: Brooklyn Jalloh MD Ordering Physician: Shayy Ashraf NP Date of Service: 10/01/25 Procedure(s): XR knee LT 4V Accession Number(s): [id number] cc: Shayy Ashraf TECHNICAL SUPPORT SPECIALIST; Brooklyn Jalloh Reason for Exam: known OA , sp fall EXAMINATION: X-ray left knee X-ray right knee CLINICAL INFORMATION: Status post fall. COMPARISON: Right knee 02/16/2024. Left knee 07/22/2020 TECHNIQUE: Left knee 4 views. Right knee 4 views. FINDINGS: Left knee: Mild-moderate medial compartment arthritis. No visible acute fracture, dislocation or suspicious bony lesion. No significant effusion. No abnormal soft tissue calcification. Right knee: Mild-moderate medial compartment arthritis. No visible acute fracture, dislocation or suspicious bony lesion. Small effusion. Small focus of chondrocalcinosis or loose body in the lateral compartment. XR/XR knee LT 4V IMPRESSION: Left knee: No acute findings. Mild-moderate medial compartment arthritis. Right knee: No visible acute fracture. Small effusion. Mild-moderate medial compartment arthritis Electronically signed by: Remington Nguyen MD 10/01/2025 02:41 PM EST Dictated By: Remington Nguyen MD Signed By: <Electronically signed by Remington Nguyen MD in OV> 10/01/25 1441 DD/ 1428 TD/TT: 10/01/25 1430 Gps Navigation Installer: MARIBELL Procedure Note Donotuseinterpreter, Image - 10/01/[address] [address] XRay Report Signed Patient: Machelle Wooten#: [id number] : 1970Acct:[id number] Age/Sex: 55 / FADM Date: 10/01/25 [facility]: Brooklyn Jalloh MD Ordering Physician: Shayy Ashraf NP Date of Service: 10/01/25 Procedure(s): XR knee LT 4V Accession Number(s): [id number] cc: Shayy Ashraf TECHNICAL SUPPORT SPECIALIST; Brooklyn Jalloh Reason for Exam: known OA , sp fall EXAMINATION: X-ray left knee X-ray right knee CLINICAL INFORMATION: Status post fall. COMPARISON: Right knee 02/16/2024. Left knee 07/22/2020 TECHNIQUE: Left knee 4 views. Right knee 4 views. FINDINGS: Left knee: Mild-moderate medial compartment arthritis. No visible acute fracture, dislocation or suspicious bony lesion. No significant effusion. No abnormal soft tissue calcification. Right knee: Mild-moderate medial compartment arthritis. No visible acute fracture, dislocation or suspicious bony lesion. Small effusion. Small focus of chondrocalcinosis or loose body in the lateral compartment. XR/XR knee LT 4V IMPRESSION: Left knee: No acute findings. Mild-moderate medial compartment arthritis. Right knee: No visible acute fracture. Small effusion. Mild-moderate medial compartment arthritis Electronically signed by: Remington Nguyen MD 10/01/2025 02:41 PM EST RP Dictated By: Remington Nguyen MD Signed By: <Electronically signed by Remington Nguyen MD in OV> 10/01/25 1441 DD/ 1428 TD/TT: 10/01/25 1430 Gps Navigation Installer: MARIBELL us Shayy Ashraf TECHNICAL SUPPORT SPECIALIST IMG XR PROCEDURES Final Result * XR Knee 4+ Views Right (10/01/2025 2:25 PM EST) Anatomical Region Laterality Modality Lower Extremities, Knee Right Radiogra phic Imaging 10/01/2025 2:25 PM EST Narrative 10/01/2025 2:44 PM EST [facility] [address] [place] [address] XRay Report Signed Patient: Machelle Wooten MR#: [id number] : 1970 Acct:[id number] Age/Sex: 55 / F ADM Date: 10/01/25 Loc: [facility] Attending Dr: Brooklyn Jalloh MD Ordering Physician: Shayy Ashraf NP Date of Service: 10/01/25 Procedure(s): XR knee RT 4V Accession Number(s): [id number] cc: Shayy Ashraf TECHNICAL SUPPORT SPECIALIST; Brooklyn Jalloh Reason for Exam: known OA, s/p mechanical fall onto knees EXAMINATION: X-ray left knee X-ray right knee CLINICAL INFORMATION: Status post fall. COMPARISON: Right knee 02/16/2024. Left knee 07/22/2020 TECHNIQUE: Left knee 4 views. Right knee 4 views. FINDINGS: Left knee: Mild-moderate medial compartment arthritis. No visible acute fracture, dislocation or suspicious bony lesion. No significant effusion. No abnormal soft tissue calcification. Right knee: Mild-moderate medial compartment arthritis. No visible acute fracture, dislocation or suspicious bony lesion. Small effusion. Small focus of chondrocalcinosis or loose body in the lateral compartment. XR/XR knee RT 4V IMPRESSION: Left knee: No acute findings. Mild-moderate medial compartment arthritis. Right knee: No visible acute fracture. Small effusion. Mild-moderate medial compartment arthritis Electronically signed by: Remington Nguyen MD 10/01/2025 02:41 PM EST Dictated By: Remington Nguyen MD Signed By: <Electronically signed by Remington Nguyen MD in OV> 10/01/25 1441 DD/ 24 TD/TT: 10/01/25 1430 Gps Navigation Installer: MARIBELL Procedure Note Donotuseinterpreter, Image - 10/01/[address] [address] XRay Report Signed Patient: Machelle WootenMR#: [id number] : 1970Acct:[id number] Age/Sex: 55 / FADM Date: 10/01/25 Loc: [facility] Attending Dr: Brooklyn Jalloh MD Ordering Physician: Shayy Ashraf NP Date of Service: 10/01/25 Procedure(s): XR knee RT 4V Accession Number(s): [id number] cc: Shayy Ashraf NP; Brooklyn Jalloh Reason for Exam: known OA, s/p mechanical fall onto knees EXAMINATION: X-ray left knee X-ray right knee CLINICAL INFORMATION: Status post fall. COMPARISON: Right knee 02/16/2024. Left knee 07/22/2020 TECHNIQUE: Left knee 4 views. Right knee 4 views. FINDINGS: Left knee: Mild-moderate medial compartment arthritis. No visible acute fracture, dislocation or suspicious bony lesion. No significant effusion. No abnormal soft tissue calcification. Right knee: Mild-moderate medial compartment arthritis. No visible acute fracture, dislocation or suspicious bony lesion. Small effusion. Small focus of chondrocalcinosis or loose body in the lateral compartment. XR/XR knee RT 4V IMPRESSION: Left knee: No acute findings. Mild-moderate medial compartment arthritis. Right knee: No visible acute fracture. Small effusion. Mild-moderate medial compartment arthritis Electronically signed by: Remington Nguyen MD 10/01/2025 02:41 PM EST Dictated By: Remington Nguyen MD Signed By: <Electronically signed by Remington Nguyen MD in OV> 10/01/25 1441 DD/ 1425 TD/TT: 10/01/25 1430 Gps Navigation Installer: MARIBELL Shayy Ashraf NP IMG XR PROCEDURES Final Result documented in this encounter Visit Diagnoses Diagnosis Fall, initial encounter- Primary Primary osteoarthritis of both knees documented in this encounter Additional Health Concerns Assessment Noted Time PHQ-9 Depression Total Score: 19 025 11:41 AM EDT documented as of this encounter Care Teams Membership Solicitor Relationship Specialty Start Date End Date Brooklyn Jalloh MD [address] [place] [address] PCP - General Family Medicine 07/17/21 documented as of this encounter
--- NOTE | 2025-10-05 12:52 | CA_ITS ---
Transthoracic Echocardiogram Patient (Last, First, Middle): Machelle Wooten, Gender: F Date of : 1970 Age: 55 Procedure Date: 10/05/2025 Procedure Type: Transthoracic Echocardiogram Location: OP Height: 165.1 cm Weight: 88.91 kg BSA: 1.96 m2 Heart Rate: bpm BP: 124 / 80 mmHg Bottom Loader: Referring MD: Landen Chauhan MD Cell Tuber Machine: Ajay Corbett MD Symptoms: R07.2 - Precordial pain Study Quality: Fair ECG Rhythm: Sinus Conclusions: - 1. Normal LV ejection fraction of 60 65% with mild LVH with grade 1 diastolic dysfunction 2. Cardiac valvular Dopplers within normal limits 3. Normal RV systolic pressure Findings Left Ventricle Normal left ventricular size and systolic function. There is mildly increased left ventricular wall thickness. The visually estimated ejection fraction is between 60-65%. Spectral Doppler is indicative of an impaired relaxation filling pattern. E/E prime ratio is <8, consistent with normal filling pressures. Evidence suggests grade I (mild) diastolic dysfunction. Right Ventricle Normal right ventricular cavity size. Atria The left atrium is normal in size. There is lipomatous hypertrophy of the interatrial septum. Interatrial shunt cannot be excluded. The right atrium was not well visualized. Aortic Valve The aortic valve structure and function is likely normal. There is no aortic valve stenosis. There is no aortic valve regurgitation. Mitral Valve Likely normal mitral valve structure and function. There is trace mitral valve regurgitation. There is no mitral valve stenosis. Pulmonic Valve The pulmonic valve is likely normal. Tricuspid Valve Likely normal tricuspid valve structure and function. There is trace tricuspid valve regurgitation. The right ventricular systolic pressure is normal. The right ventricular systolic pressure is 13 mmHg. Normal right atrial pressure. There is no evidence of pulmonary hypertension. Great Vessels The aorta was not well visualized. The pulmonary artery was not well visualized. There is no dilatation of the ascending aorta measuring 2.90 cm. Venous The inferior vena cava is normal in size. Pericardium/Pleural The pericardium was not well visualized. Prior Study Comparison no previous study in his last 5 years for comparison Measurements 2D Linear Measurements IVSd: 1.23 0.6-0.9/0.6-1.0 cm LVIDd: 3.27 3.9-5.3/4.2-5.9 cm LVIDd Index: 1.67 2.4-3.2/2.2-3.1 cm/m2 LVIDs: 2.03 2.0-3.6 cm LVPWd: 1.18 0.7-1.1 cm Ao Root: 3.10 2.1-3.5 cm LA Diam: 3.20 2.7-3.8/3.0-4.0 cm LAIDs Index: 1.63 1.5-2.3 cm/m2 LV Mass: 154.22 67-162/88-224 g LV Mass Index: 78.68 43-95/49-115 g/m2 LVOT Diam: 1.90 3.0+(-)1.3 cm 2D Systolic Function EF 4C: 67.60 >55% EF 2C: 54.20 >55% EF BiP: 60.60 >55% Mitral Valve MV Pk E: 0.48 MV PK A: 0.69 MV Decel Time: 130.00 E/A: 0.70 E'Lateral: 5.87 E'Medial: 7.94 E/E' Med: 6.00 E/E' Lat: 8.10 PHT: 38.00 MVA PHT: 5.79 Decel [place]: 3.66 Aortic Valve AoV Pk Thomas: 1.12 AoV Mn Thomas: 0.76 AoV VTI: 0.18 AoV Pk Grad: 5.00 Aov Mn Grad: 3.00 TIFFANI Cont.VTI: 2.43 LVOT LVOT Pk Thomas: 0.99 LVOT Mn Thomas: 0.69 LVOT VTI: 0.15 LVOT Pk Grad: 4.00 LVOT Mn Grad: 2.00 LVOT Diam: 1.90 LVOT Area: 2.84 Diastolic Function MV Pk E: 0.48 MV Pk A: 0.69 E/A: 0.70 E'Medial: 7.94 E/E' Med: 6.00 E' Laterial: 5.87 E/E' Lat: 8.10 Right Ventricle TAPSE (mm): 20.00 Tricuspid Valve TR Pk Thomas: 1.58 TR Pk Grad: 10.00 RA Press: 3.00 RVSP: 13.00 Great Vessels Aorta Ao Root-2D: 3.10 2.0-3.7 cm Ao Asc: 2.90 2.1-3.4 cm Pulmonary Valve PV Pk Thomas: 0.90 Peak PV Grad: 3.00 Updated in Other Vendor System with Status of Final Ajay Corbett MD electronically signed on 10/06/2025 4:47:43 PM with status of Final
--- OUTSIDE RECORDS SUMMARY | 2025-10-05 14:30 | XMS_ITS | Encounter Summary ---
Author Organization [employer] Address [address] [facility] 7t [place] [address] Care Team Providers Care Produce Associate Name Role Phone Brooklyn Jalloh MD Primary Care Provider [phone] Reason for Visit * Reason Onset Date Comments Med Refill 02/04/2023 Encounter Details Date Type Department Care Team (Late st Contact Info) Description 02/04/2023 Telephone [facility] MEDICINE [address] [place] [address] Brooklyn Jalloh MD [address] [place] [address] Med Refill Social History Tobacco Use Types [...] 3:33 PM EDT Medications were sent to [facility] today 02/04/23. * Telephone Encounter - Ankur Villanueva - 02/04/2023 3:01 PM EDT Tc from pt requesting med refill Prednisone 20 mg Ibuprofen 800 mg Doxycycline 100 mg documented in this encounter Plan of Treatment Upcoming Encounters Date Type Department Care Team (Late st Contact Info) Description 10/20/2025 1:30 PM EST Office Visit [facility] ADULT DENTAL [address] [place] [address] Braydon, Delaney [address] [place] [address] 10/29/2025 11:15 AM EST Office Visit [facility] MEDICINE [address] [place] [address] Brooklyn Jalloh MD [address] [place] [address] documented as of this encounter Visit Diagnoses Not on filedocumented in this encounter Additional Health Concerns Assessment Noted Time PHQ-9 Depression Total Score: 6 02/05/20 23 11:27 AM EDT documented as of this encounter Care Teams Produce Associate Relationship Specialty Start Date End Date Brooklyn Jalloh MD [address] [place], [place] [phone] PCP - General Family Medicine 07/17/21 documented as of this encounter
--- OUTSIDE RECORDS SUMMARY | 2025-10-05 14:30 | XMS_ITS | Encounter Summary ---
Author Organization [employer] Address [address] [facility] 7t [place] [address] Care Team Providers Care Coding Tech Name Role Phone Brooklyn Jalloh MD Primary Care Provider [phone] Encounter Details Date Type Department Care Team ([facility] st Contact Info) Description 05/21/2025 Telephone [facility] MEDICINE [address] [place], [place] [phone] Brooklyn Jalloh MD [address] [place] [address] Social History Tobacco Use Types Packs/Day Years [...] PM EST Office Visit [facility] ADULT DENTAL [address] [place] [address] Braydon, Delaney [address] [place] [address] 10/29/2025 11:15 AM EST Office Visit [facility] MEDICINE [address] [place] [address] Brooklyn Jalloh MD [address] [place] [address] documented as of this encounter Visit Diagnoses Not on filedocumented in this encounter Additional Health Concerns Assessment Noted Time PHQ-9 Depression Total Score: 14 025 12:17 PM EDT documented as of this encounter Care Teams Coding Tech Relationship Specialty Start Date End Date Brooklyn Jalloh MD [address] [place] [address] PCP - General Family Medicine 07/17/21 documented as of this encounter
--- OUTSIDE RECORDS SUMMARY | 2025-10-05 14:30 | XMS_ITS | Encounter Summary ---
Author Organization [employer] Address 75 [facility] 7t [place] [address] Care Team Providers Care Sole Polisher Name Role Phone Brooklyn Jalloh MD Primary Care Provider [phone] Encounter Details Date Type Department Care Team (Late Contact Info) Description 02/15/2023 Orders Only [facility] MEDICINE [address] [place] [address] Brooklyn Jalloh MD [address] [place] [address] Ingrown toenail (Primary Dx) Social History Tobacco [...] Description 10/20/2025 1:30 PM EST Office Visit [facility] ADULT DENTAL [address] [place], [place] [phone] Delaney Bryson [address] [place] [address] 10/29/2025 11:15 AM EST Office Visit [facility] MEDICINE [address] [place], [place] [phone] Brooklyn Jalloh MD [address] [place], [place] [phone] documented as of this encounter Visit Diagnoses Diagnosis Ingrown toenail- Primary Ingrowing nail documented in this encounter Additional Health Concerns Assessment Noted Time PHQ-9 Depression Total Score: 6 02/05/20 23 11:27 AM EDT documented as of this encounter Care Teams Sole Polisher Relationship Specialty Start Date End Date Brooklyn Jalloh MD [address] [place] [phone] PCP - General Family Medicine 07/17/21 documented as of this encounter
--- OUTSIDE RECORDS SUMMARY | 2025-10-05 14:30 | XMS_ITS | Encounter Summary ---
Author Organization [employer] Address [address] [facility] [address] 7t [place] [address] Care Team Providers Care Mapping Pilot Name Role Phone Brooklyn Jalloh MD Primary Care Provider [phone] Encounter Details Date Type Department Care Team (Late st Contact Info) Description 08/26/2024 Orders Only [facility] MEDICINE [address] [place] [address] Brooklyn Jalloh MD [address] [place] [address] Elevated alkaline phosphatase level (Primary Dx) Social [...] Description 10/20/2025 1:30 PM EST Office Visit [facility] ADULT DENTAL [address] [place] [address] Braydon, Delaney [address] [place] [address] 10/29/2025 11:15 AM EST Office Visit [facility] MEDICINE [address] [place] [address] Brooklyn Jalloh MD [address] [place] [address] documented as of this encounter Procedures Procedure Name Priority Date/Time Associated Diagnosis Comments MITOCHONDRIAL ANTIBODY WITH REFLEX TO TITER Routine 04/02/2025 11:49 AM EDT Elevated alkaline phosphatase level documented in this encounter Results * Mitochondrial Antibody with Reflex to Titer (04/02/2025 11:49 AM EDT) Mitochondrial Antibodies NEGATIVE NEGATIVE [facility] Comment:THIS TEST WAS PERFOR MED AT:[facility] [place] [id number] GRIGGS MD Mitochondrial Ab Titer TNP [facility] Blood Venous blood specimen / Unknown 04/02/2025 11:49 AM EDT 04/02/2025 1:17 PM EDT Brooklyn Jalloh MD LAB BLOOD ORDERABLES Final Res ult Performing Organization Address City/State/[facility] Co de Phone Number [facility] [address] [place] [address] [phone] documented in this encounter Visit Diagnoses Diagnosis Elevated alkaline phosphatase level- Primary documented in this encounter Additional Health Concerns Assessment Noted Time PHQ-9 Depression Total Score: 5 03/16/20 24 11:45 AM EDT documented as of this encounter Care Teams Mapping Pilot Relationship Specialty Start Date End Date Brooklyn Jalloh MD [address] [place] [address] PCP - General Family Medicine 07/17/21 documented as of this encounter
--- OUTSIDE RECORDS SUMMARY | 2025-10-05 14:30 | XMS_ITS | Encounter Summary ---
Author Organization [employer] Address 75 [facility] 7t [place] [address] Care Team Providers Care Incident Handler Name Role Phone Brooklyn Jalloh MD Primary Care Provider [phone] Reason for Visit * Reason Onset Date Comments Medication Question 08/20/2024 Results 08/20/2024 Encounter Details Date Type Department Care Team ([facility] st Contact Info) Description 08/20/2024 Telephone [facility] MEDICINE [address] [place] [address] Brooklyn Jalloh MD [address] [place], [place] [phone] Medication Question; Results Social History Tobacco Use [...] 2:40 PM EDT TC placed to pt [phone] via [employer] in regards to below message. RN informed [...] - 08/20/2024 3:47 PM EDT Noted. Per [employer], shoulder Xray performed on 08/11/24 however interpretation [...] BW. Pt verbalized understanding. Pt also requesting drtyhbv-soeevscdkfvgj-hbfcdhuo medication be Rx'd again for her migraines. [...] results: Labs Date when done: 08/18/24 Facility: [facility] Pt is also requesting Eletriptan medication for migraines but global technical writer did not see medication on med list. Please contact pt at [phone]. (Khmer Speaker) documented in this encounter Plan of Treatment Upcoming Encounters Date Type Department Care Team (Late st Contact Info) Description 10/20/2025 1:30 PM EST Office Visit [facility] ADULT DENTAL [address] [place] [address] David Brysonaris [address] [place] [address] 10/29/2025 11:15 AM EST Office Visit [facility] MEDICINE [address] [place] [address] Brooklyn Jalloh MD [address] [place] [address] documented as of this encounter Visit Diagnoses Not on filedocumented in this encounter Additional Health Concerns Assessment Noted Time PHQ-9 Depression Total Score: 5 03/16/20 24 11:45 AM EDT documented as of this encounter Care Teams Incident Handler Relationship Specialty Start Date End Date Brooklyn Jalloh MD [address] [place] [address] PCP - General Family Medicine 07/17/21 documented as of this encounter
--- OUTSIDE RECORDS SUMMARY | 2025-10-05 14:30 | XMS_ITS | Encounter Summary ---
Author Organization [email or web address] Address [address] [place] [address] 7t [place] [address] Care Team Providers Care Pershing Missile Crewmember Name Role Phone Brooklyn Jalloh MD Primary Care Provider [phone] Reason for Referral * (Routine) - Closed Specialty Diagnoses / Procedures Referred By Tenzin t Referred To Contact Diagnoses Benign breast disease Procedures BI Mammogram Diagnostic same day Diagnostic same/ Day Right Brooklyn Jalloh MD [address] [place] [address] Phone: tel: fax: Referral ID Status Reason Start Date Expiration Date Visits Re quested Visits Authorized [id number] Closed 03/20/2023 09/16/2023 1 1 Encounter Details Date Type Department Care Team (Late st Contact Info) Description 03/20/2023 Orders Only [facility] MEDICINE [address] [place] [address] [phone] Brooklyn Jalloh MD [address] [place] [address] [phone] Benign breast disease (Primary Dx) Social History [...] 10/20/2025 1:30 PM EST Office Visit [facility] ADULT DENTAL [address] [place] [address] Braydon, Delaney [address] [place] [address] 10/29/2025 11:15 AM EST Office Visit [facility] MEDICINE [address] [place] [address] Brooklyn Jalloh MD [address] [place] [address] Scheduled Orders Name Type Priority Associated Diagnoses [...] documented as of this encounter Care Teams Pershing Missile Crewmember Relationship Specialty Start Date End Date Brooklyn Jalloh MD [address] [place] [address] PCP - General Family Medicine 07/17/21 documented as of this encounter
--- OUTSIDE RECORDS SUMMARY | 2025-10-05 14:30 | XMS_ITS | Encounter Summary ---
Author Organization [employer] Address 75 [facility] 7t [place] [address] Care Team Providers Care Sheather Name Role Phone Brooklyn Jalloh MD Primary Care Provider [phone] Encounter Details Date Type Department Care Team (Late st Contact Info) Description 01/28/[address] [facility] MEDICINE 230 [place] [address] Sarika Jenkins CNM [address] [place] [address] Candidiasis of vulva and vagina (Primary Dx) [...] Description 10/20/2025 1:30 PM EST Office Visit [facility] ADULT DENTAL [address] [place] [address] Delaney Bryson [address] [place] [address] 10/29/2025 11:15 AM EST Office Visit [facility] MEDICINE [address] [place] [address] Brooklyn Jalloh MD 230 [place] [address] documented as of this encounter Visit Diagnoses Diagnosis Candidiasis of vulva and vagina- Primary documented in this encounter Care Teams Sheather Relationship Specialty Start Date End Date Brooklyn Jalloh MD [address] [place] [address] PCP - General Family Medicine 07/17/21 documented as of this encounter
--- OUTSIDE RECORDS SUMMARY | 2025-10-05 14:30 | XMS_ITS | Encounter Summary ---
Author Organization [employer] Address [address] [facility] [address] 7t [place] [address] Care Team Providers Care Painter Airbrush Name Role Phone Brooklyn Jalloh MD Primary Care Provider [phone] Encounter Details Date Type Department Care Team (Late st Contact Info) Description 08/25/2024 Orders Only [facility] MEDICINE [address] [place] [address] Provider, MD Dipak Social History Tobacco Use [...] 10/20/2025 1:30 PM EST Office Visit [facility] ADULT DENTAL 230 [place], [place] [phone] Braydon, Delaney [address] [place], [place] [phone] 10/29/2025 11:15 AM EST Office Visit [facility] MEDICINE 230 [place], [place] [phone] Brooklyn Jalloh MD 230 [place], [place] [phone] documented as of this encounter Procedures Procedure [...] as of this encounter Care Teams Painter Airbrush Relationship Specialty Start Date End Date Brooklyn Jalloh MD 230 [place], [place] [phone] PCP - General Family Medicine 07/17/21 documented as of this encounter
--- OUTSIDE RECORDS SUMMARY | 2025-10-05 14:30 | XMS_ITS | Encounter Summary ---
Author Organization [employer] Address 75 [facility] 7t [place] [address] Care Team Providers Care Flyer Maker Name Role Phone Brooklyn Jalloh MD Primary Care Provider [phone] Reason for Visit * Reason Onset Date Comments Referral 08/05/2024 Encounter Details Date Type Department Care Team ([facility] st Contact Info) Description 08/05/2024 Telephone [facility] MEDICINE 230 [place], [place] [phone] Brooklyn Jalloh MD [address] [place] [address] Referral Social History Tobacco Use Types Packs/Day [...] of the breast to be sent to [facility] Address: [address] [place] [address] Fax- [phone] documented in this encounter Plan of Treatment Upcoming Encounters Date Type Department Care Team (Late st Contact Info) Description 10/20/2025 1:30 PM EST Office Visit [facility] ADULT DENTAL 230 [place] [address] Braydon, Delaney [address] [place] [address] 10/29/2025 11:15 AM EST Office Visit [facility] MEDICINE [address] [place] [address] Brooklyn Jalloh MD [address] [place] [address] documented as of this encounter Visit Diagnoses Not on filedocumented in this encounter Additional Health Concerns Assessment Noted Time PHQ-9 Depression Total Score: 5 03/16/20 24 11:45 AM EDT documented as of this encounter Care Teams Flyer Maker Relationship Specialty Start Date End Date Brooklyn Jalloh MD [address] [place] [address] PCP - General Family Medicine 07/17/21 documented as of this encounter
--- OUTSIDE RECORDS SUMMARY | 2025-10-05 14:30 | XMS_ITS | Encounter Summary ---
Author Organization [employer] Address [address] [facility] 7t [place] [address] Care Team Providers Care Topographical Drafter Name Role Phone Brooklyn Jalloh MD Primary Care Provider [phone] Reason for Visit * Reason Onset Date Comments Durable Medical Equipment 02/07/2023 Encounter Details Date Type Department Care Team (Late st Contact Info) Description 02/07/2023 Telephone [facility] MEDICINE [address] [place] [address] Brooklyn Jalloh MD [address] [place] [address] Durable Medical Equipment Social History Tobacco Use [...] status on walker please contact pt at [phone]. documented in this encounter Plan of Treatment Upcoming Encounters Date Type Department Care Team (Late st Contact Info) Description 10/20/2025 1:30 PM EST Office Visit [facility] ADULT DENTAL [address] [place] [address] BraydonDavidDelaney 230 [place] [address] 10/29/2025 11:15 AM EST Office Visit [facility] MEDICINE [address] [place] [address] Brooklyn Jalloh MD [address] [place] [address] documented as of this encounter Visit Diagnoses Not on filedocumented in this encounter Additional Health Concerns Assessment Noted Time PHQ-9 Depression Total Score: 6 02/05/20 23 11:27 AM EDT documented as of this encounter Care Teams Topographical Drafter Relationship Specialty Start Date End Date Brooklyn Jalloh MD [address] [place] [address] PCP - General Family Medicine 07/17/21 documented as of this encounter
--- OUTSIDE RECORDS SUMMARY | 2025-10-05 14:30 | XMS_ITS | Encounter Summary ---
Author Organization [email or web address] Address 75 [facility] 7t [place] [address] Care Team Providers Care Planogrammer Name Role Phone Brooklyn Jalloh MD Primary Care Provider [phone] Reason for Visit * Reason Onset Date Comments triage 03/06/2023 Encounter Details Date Type Department Care Team ([facility] st Contact Info) Description 03/06/2023 Telephone [facility] MEDICINE 230 [place], [place] [phone] Brooklyn Jalloh MD 230 [place] [address] triage Social History Tobacco Use Types Packs/Day [...] 03/06/2023 3:39 PM EDT triage call with [facility] [place] [id number] Pt reports itchiness on face. Pt reports this has been for two days and has some red spots now. Pt has had this before in different areas of the body. Pt has seen merchandising execution associate Cassie and jakob to help but doesn't know the name of the cream. Pt is offered to come to [facility] to be seen by provider but, declines. Pt wants only to have apt with merchandising execution associate will send to PCP nurse team to [...] now The caller accepted this outcome speaks kyrgyz documented in this encounter Plan of Treatment Upcoming Encounters Date Type Department Care Team (Late st Contact Info) Description 10/20/2025 1:30 PM EST Office Visit [facility] ADULT DENTAL 230 [place], [place] [phone] Delaney Bryson [address] [place] [address] 10/29/2025 11:15 AM EST Office Visit [facility] MEDICINE [address] [place] [address] Brooklyn Jalloh MD 230 [place] [address] documented as of this encounter Visit Diagnoses Not on filedocumented in this encounter Additional Health Concerns Assessment Noted Time PHQ-9 Depression Total Score: 6 02/05/20 23 11:27 AM EDT documented as of this encounter Care Teams Planogrammer Relationship Specialty Start Date End Date Brooklyn Jalloh MD [address] [place] [address] PCP - General Family Medicine 07/17/21 documented as of this encounter
--- OUTSIDE RECORDS SUMMARY | 2025-10-05 14:30 | XMS_ITS | Encounter Summary ---
Author Organization [employer] Address 75 [facility] 7t [place] [address] Care Team Providers Care General Warehouse Associate Name Role Phone Brooklyn Jalloh MD Primary Care Provider [phone] Encounter Details Date Type Department Care Team ([facility] Contact Info) Description 03/07/2023 Orders Only [facility] MEDICINE [address] [place] [address] Brooklyn Jalloh MD 230 [place] [address] Rash of face (Primary Dx) Social History [...] Description 10/20/2025 1:30 PM EST Office Visit [facility] ADULT DENTAL 230 [place], [place] [phone] Delaney Bryson 230 [place] [address] 10/29/2025 11:15 AM EST Office Visit [facility] MEDICINE 230 [place] [address] Brooklyn Jalloh MD 230 [place] [address] documented as of this encounter Visit Diagnoses Diagnosis Rash of face- Primary documented in this encounter Additional Health Concerns Assessment Noted Time PHQ-9 Depression Total Score: 6 02/05/20 23 11:27 AM EDT documented as of this encounter Care Teams General Warehouse Associate Relationship Specialty Start Date End Date Brooklyn Jalloh MD [address] [place] [address] PCP - General Family Medicine 07/17/21 documented as of this encounter
--- OUTSIDE RECORDS SUMMARY | 2025-10-05 14:31 | XMS_ITS | Encounter Summary ---
Author Organization [employer] Address [address] [facility] 7t [place] [address] Care Team Providers Care Insurance Healthcare Representative Name Role Phone Brooklyn Jalloh MD Primary Care Provider [phone] Reason for Visit * Reason Comments Med Refill Encounter Details Date Type Department Care Team ([facility] st Contact Info) Description 08/05/2025 Refill [facility] MEDICINE 230 [place] [address] Brooklyn Jalloh MD [address] [place] [address] Social History Tobacco Use Types Packs/Day Years [...] 1:30 PM EST Office Visit [facility] ADULT DENTAL [address] [place] [address] David Brysonaris [address] [place] [address] 10/29/2025 11:15 AM EST Office Visit [facility] MEDICINE [address] [place] [address] Brooklyn Jalloh MD [address] [place] [address] documented as of this encounter Visit Diagnoses Not on filedocumented in this encounter Additional Health Concerns Assessment Noted Time PHQ-9 Depression Total Score: 14 025 12:17 PM EDT documented as of this encounter Care Teams Insurance Healthcare Representative Relationship Specialty Start Date End Date Brooklyn Jalloh MD [address] [place] [address] PCP - General Family Medicine 07/17/21 documented as of this encounter
--- OUTSIDE RECORDS SUMMARY | 2025-10-05 14:31 | XMS_ITS | Encounter Summary ---
Author Organization [email or web address] Address [address] [facility] 7t [place] [address] Care Team Providers Care Security Manager Name Role Phone Brooklyn Jalloh MD Primary Care Provider [phone] Reason for Visit * Reason Onset Date Comments Medication Question 11/19/2024 Encounter Details Date Type Department Care Team ([facility] st Contact Info) Description 11/19/2024 Telephone [facility] MEDICINE 230 [place] [address] Brooklyn Jalloh MD 230 [place] [address] Medication Question Social History Tobacco Use Types [...] Description 10/20/2025 1:30 PM EST Office Visit [facility] ADULT DENTAL [address] [place] [address] David Brysonaris [address] [place] [address] 10/29/2025 11:15 AM EST Office Visit [facility] MEDICINE 230 [place] [address] Brooklyn Jalloh MD [address] [place] [address] documented as of this encounter Visit Diagnoses Not on filedocumented in this encounter Additional Health Concerns Assessment Noted Time PHQ-9 Depression Total Score: 5 03/16/20 24 11:45 AM EDT documented as of this encounter Care Teams Security Manager Relationship Specialty Start Date End Date Brooklyn Jalloh MD [address] [place] [address] PCP - General Family Medicine 07/17/21 documented as of this encounter
--- OUTSIDE RECORDS SUMMARY | 2025-10-05 14:31 | XMS_ITS | Encounter Summary ---
Author Organization [employer] [facility] Address 75 [facility] 7t [place] [address] Care Team Providers Care Galvanizer Name Role Phone Brooklyn Jalloh MD Primary Care Provider [phone] Encounter Details Date Type Department Care Team (Latest Contact Info) Description 05/12/2019 Abstract [facility] CONVERSIONS Dental, Provider, DDS Social History [...] 1:30 PM EST Office Visit [facility] ADULT DENTAL 230 [place] [address] Braydon, Delaney [address] [place] [address] 10/29/2025 11:15 AM EST Office Visit [facility] MEDICINE [address] [place] [address] Brooklyn Jalloh MD 230 [place] [address] documented as of this encounter Visit Diagnoses Not on filedocumented in this encounter Care Teams Galvanizer Relationship Specialty Start Date End Date Brooklyn Jalloh MD [address] [place] [address] PCP - General Family Medicine 07/17/21 documented as of this encounter
--- OUTSIDE RECORDS SUMMARY | 2025-10-05 14:31 | XMS_ITS | Encounter Summary ---
Author Organization [employer] Address 75 [facility] 7t h Floor [place] [id number] Care Team Providers Care Principal Associate Name Role Phone Brooklyn Jalloh MD Primary Care Provider [phone] Reason for Visit * Reason Onset Date Comments referral 11/29/2023 Encounter Details Date Type Department Care Team ([facility] st Contact Info) Description 11/29/2023 Telephone [facility] 230 [place], [place] [phone] Brooklyn Jalloh MD 230 [place] [address] referral Social History Tobacco Use Types Packs/Day [...] Tc from pt requesting a Referral for [facility] with Dr. Aldrich @ [address] [place] [address] to be further Evaluated for her Diagnoses @ the [facility] of gastroenteritis. Please contact pt @ [phone] documented in this encounter Plan of Treatment Upcoming Encounters Date Type Department Care Team ([facility] st Contact Info) Description 10/20/2025 1:30 PM EST Office Visit [facility] ADULT DENTAL [address] [place] [address] Delaney Bryosn [address] [place] [address] 10/29/2025 11:15 AM EST Office Visit [facility] MED[facility]INE [address] [place] [address] Brooklyn Jalloh MD [address] [place] [address] documented as of this encounter Visit Diagnoses Not on filedocumented in this encounter Additional Health Concerns Assessment Noted Time PHQ-9 Depression Total Score: 6 02/05/20 23 11:27 AM EDT documented as of this encounter Care Teams Principal Associate Relationship Specialty Start Date End Date Brooklyn Jalloh MD [address] [place] [address] PCP - General Family Medicine 07/17/21 documented as of this encounter
--- OUTSIDE RECORDS SUMMARY | 2025-10-05 14:31 | XMS_ITS | Encounter Summary ---
Author Organization [employer] [facility] Address 75 [facility] 7t [place] [address] Care Team Providers Care Split Leather Department Supervisor Name Role Phone Brooklyn Jalloh MD Primary Care Provider [phone] Encounter Details Date Type Department Care Team (Latest Contact Info) Description 04/06/2021 Abstract [facility] CON[facility] Dental, Provider, DDS Social [...] Description 10/20/2025 1:30 PM EST Office Visit [facility] ADULT [facility]ENTAL 230 [place] [address] Delaney Bryson 230 [place] [address] 10/29/2025 11:15 AM EST Office Visit [facility] 230 [place] [address] Brooklyn Jalloh MD 230 [place] [address] documented as of this encounter Visit Diagnoses Not on filedocumented in this encounter Care Teams Split Leather Department Supervisor Relationship Specialty Start Date End Date Brooklyn Jalloh MD [address] [place] [address] PCP - General Family Medicine 07/17/21 documented as of this encounter
--- OUTSIDE RECORDS SUMMARY | 2025-10-05 14:31 | XMS_ITS | Encounter Summary ---
Author Organization [employer] Address 75 [facility] 7t [place] [address] Care Team Providers Care Flat Knitter Helper Name Role Phone Brooklyn Jalloh MD Primary Care Provider [phone] Encounter Details Date Type Department Care Team (Late st Contact Info) Description 08/24/2025 Orders Only [facility] MEDICINE 230 [place] [address] Brooklyn Jalloh MD [address] [place] [address] Social History Tobacco Use Types Packs/Day Years [...] PM EST Office Visit [facility] ADULT DENTAL [address] [place] [address] Braydon, Delaney [address] [place] [address] 10/29/2025 11:15 AM EST Office Visit [facility] MEDICINE [address] [place] [address] Brooklyn Jalloh MD [address] [place] [address] documented as of this encounter Visit Diagnoses Not on filedocumented in this encounter Additional Health Concerns Assessment Noted Time PHQ-9 Depression Total Score: 19 025 11:41 AM EDT documented as of this encounter Care Teams Flat Knitter Helper Relationship Specialty Start Date End Date Brooklyn Jalloh MD [address] [place] [address] PCP - General Family Medicine 07/17/21 documented as of this encounter
--- OUTSIDE RECORDS SUMMARY | 2025-10-05 14:31 | XMS_ITS | Encounter Summary ---
Author Organization [employer] Address [address] [facility] 7t [place] [address] Care Team Providers Care Sound System Installer Name Role Phone Brooklyn Jalloh MD Primary Care Provider [phone] Encounter Details Date Type Department Care Team (Late st Contact Info) Description 07/23/2023 Abstract [facility] MEDICINE [address] [place] [address] [phone] Brooklyn Jalloh MD [address] [place] [address] Social History Tobacco Use Types Packs/Day Years [...] Office Visit [facility] ADULT DENTAL [address] [place] [address] [phone] Delaney Bryson 230 [place] [address] 10/29/2025 11:15 AM EST Office Visit [facility] MEDICINE [address] [place] [address] Brooklyn Jalloh MD 230 [place] [address] documented as of this encounter Visit Diagnoses Not on filedocumented in this encounter Additional Health Concerns Assessment Noted Time PHQ-9 Depression Total Score: 6 02/05/20 23 11:27 AM EDT documented as of this encounter Care Teams Sound System Installer Relationship Specialty Start Date End Date Brooklyn Jalloh MD [address] [place] [address] PCP - General Family Medicine 07/17/21 documented as of this encounter
--- OUTSIDE RECORDS SUMMARY | 2025-10-05 14:31 | XMS_ITS | Encounter Summary ---
Author Organization [employer] Address 75 [facility] 7t [place] [address] Care Team Providers Care Digital Specialist Name Role Phone Brooklyn Jalloh MD Primary Care Provider [phone] Reason for Visit * Reason Onset Date Comments Referral 05/10/2023 Encounter Details Date Type Department Care Team ([facility] st Contact Info) Description 05/10/2023 Telephone [facility] MEDICINE 230 [place], [place] [phone] Brooklyn Jalloh MD 230 [place] [address] Referral Social History Tobacco Use Types Packs/Day [...] to her toenails. Please contact pt at [phone] Guatemalan Speaker documented in this encounter Plan of Treatment Upcoming Encounters Date Type Department Care Team (Late st Contact Info) Description 10/20/2025 1:30 PM EST Office Visit [facility] ADULT DENTAL [address] [place] [address] BraydonDavidDelaney [address] [place] [address] 10/29/2025 11:15 AM EST Office Visit [facility] MEDICINE [address] [place] [address] Brooklyn Jalloh MD [address] [place] [address] documented as of this encounter Visit Diagnoses Not on filedocumented in this encounter Additional Health Concerns Assessment Noted Time PHQ-9 Depression Total Score: 6 02/05/20 23 11:27 AM EDT documented as of this encounter Care Teams Digital Specialist Relationship Specialty Start Date End Date Brooklyn Jalloh MD [address] [place] [address] PCP - General Family Medicine 07/17/21 documented as of this encounter
--- OUTSIDE RECORDS SUMMARY | 2025-10-05 14:31 | XMS_ITS | Encounter Summary ---
Author Organization [employer] Address 75 [facility] 7t [place] [address] Care Team Providers Care Electromatic Typist Name Role Phone Brooklyn Jalloh MD Primary Care Provider [phone] Reason for Visit * Reason Comments Med Refill Encounter Details Date Type Department Care Team ([facility] st Contact Info) Description 08/18/2025 Refill [facility] MEDICINE 230 [place] [address] Brooklyn Jalloh MD 230 [place] [address] Cervical spondylosis; Degeneration of lumbar intervertebral disc [...] 10/20/2025 1:30 PM EST Office Visit [facility] ADULT DENTAL 230 [place] [address] Braydon, Delaney 230 [place] [address] 10/29/2025 11:15 AM EST Office Visit [facility] MEDICINE [address] [place] [address] Brooklyn Jalloh MD [address] [place] [address] documented as of this encounter Visit Diagnoses Diagnosis Cervical spondylosis Cervical spondylosis without myelopathy Degeneration of lumbar intervertebral disc Degeneration of lumbar or lumbosacral intervertebral disc documented in this encounter Additional Health Concerns Assessment Noted Time PHQ-9 Depression Total Score: 19 025 11:41 AM EDT documented as of this encounter Care Teams Electromatic Typist Relationship Specialty Start Date End Date Brooklyn Jalloh MD [address] [place] [address] PCP - General Family Medicine 07/17/21 documented as of this encounter
--- OUTSIDE RECORDS SUMMARY | 2025-10-05 14:31 | XMS_ITS | Encounter Summary ---
Author Organization [employer] Address [address] [facility] [address] [place] [address] Care Team Providers Care Jet Aircraft Servicer Name Role Phone Brooklyn Jalloh MD Primary Care Provider [phone] Reason for Visit * Reason Comments Med Refill Encounter Details Date Type Department Care Team ([facility] st Contact Info) Description 08/20/2025 Refill [facility] [address] [place] [address] Brooklyn Jalloh MD [address] [place] [address] Social History Tobacco Use Types Packs/Day Years [...] Description 10/20/2025 1:30 PM EST Office Visit [facility] [address] [place] [address] David Brysonaris [address] [place] [address] 10/29/2025 11:15 AM EST Office Visit [facility] [address] [place] [address] Brooklyn Jalloh MD [address] [place] [phone] documented as of this encounter Visit Diagnoses Not on filedocumented in this encounter Additional Health Concerns Assessment Noted Time PHQ-9 Depression Total Score: 19 025 11:41 AM EDT documented as of this encounter Care Teams Jet Aircraft Servicer Relationship Specialty Start Date End Date Brooklyn Jalloh MD [address] [place] [id number] PCP - General Family Medicine 07/17/21 documented as of this encounter
--- OUTSIDE RECORDS SUMMARY | 2025-10-05 14:31 | XMS_ITS | Encounter Summary ---
Author Organization [employer] Address [address] [facility] 7[address] [place] [address] Care Team Providers Care Labor Relations Supervisor Name Role Phone Brooklyn Jalloh MD Primary Care Provider [phone] Reason for Visit * Reason Comments Med Refill Encounter Details Date Type Department Care Team ([facility] st Contact Info) Description 05/18/2025 Refill [facility] [address] [place] [address] Brooklyn Jalloh MD [address] [place] [address] Social History Tobacco Use Types Packs/Day Years [...] 10/20/2025 1:30 PM EST Office Visit [facility] [address] [place] [address] David Brysonaris [address] [place] [address] 10/29/2025 11:15 AM EST Office Visit [facility] [address] [place] [phone] Brooklyn Jalloh MD [address] [place] [phone] documented as of this encounter Visit Diagnoses Not on filedocumented in this encounter Additional Health Concerns Assessment Noted Time PHQ-9 Depression Total Score: 14 025 12:17 PM EDT documented as of this encounter Care Teams Labor Relations Supervisor Relationship Specialty Start Date End Date Brooklyn Jalloh MD [address] [place] [phone] PCP - General Family Medicine 07/17/21 documented as of this encounter
--- OUTSIDE RECORDS SUMMARY | 2025-10-05 14:31 | XMS_ITS | Clinical Summary ---
Author Organization [employer] Address [address] [place] [address] Care Team Providers Care Unemployment Inspector Name Role Phone Brooklyn Jalloh MD Primary Care Provider [phone] Allergies Active Allergy Reactions Criticality Noted Date [...] Active Respiratory Therapy Supplies (Adult Aerosol Mask) [facility] USE DIRECTED WITH NEBULIZER 023 Active triamcinolone [...] mouth 2 times daily. 60 tablet 11 2025 Active Diclofenac Sodium 1 % gel APPLY 2 GRAMS TO AFFECTED AREA(S) UP TO FOUR TIMES DAILY 100 g 1 Active clotrimazole (Lotrimin) 1 % creamIndications: Vaginal candidiasis Apply topically 2 times daily for 28 days. 30 g 5 2024 Active Diclofenac Sodium 1 % gel Apply to affected area up to 4x daily 50 g 3 2024 Discontinued fluconazole (Diflucan) 150 MG tabletIndications :Vaginal candidiasis Take 1 tablet (150 mg) by mouth 1 (one) time per week for 1 dose. 1 tablet 2024 Miconazole Nitrate (Monistat 3) 4 % [...] 08/04/25 via bedside ultrasound - Follow-up with leather case finisher on August 31, 2025 Acute left-sided low [...] and follow-up results COPD with acute exacerbation ([facility]) Assessment & Plan (06/26/2025 11:15 AM EDT): [...] (08/12/2024 11:39 AM EDT): Continue followup with [facility] ortho for viscosupplementation Assessment [...] EDT): Diet controlled Will start going to [facility] with her daughter as well Anxiety disorder [...] Description 10/01/2025 10:40 AM EST Office Visit [facility] [address] [address] Shayy Ashraf NP Fall, initial encounter (Primary Dx); Primary osteoarthritis of both knees 10/01/2025 Travel 09/24/2025 Orders Only [facility] [address] [place] [phone] Shayy Ashraf NP Vaginal candidiasis (Primary Dx) 09/24/2025 Refill [facility] [address] [address] Brooklyn Jalloh MD Cough in adult patient 09/22/2025 Telephone [facility] [address] [place] [phone] Trenton Fernandez CNP 09/21/2025 Telephone [facility] [address] [place] [phone] Brooklyn Jalloh MD Medication Question 09/20/2025 9:40 AM EDT Office Visit [facility] [address] [address] Genna Irizarry FNP Vaginal discharge (Primary Dx); Vaginal itching; Vaginal candidiasis 09/20/2025 Travel 09/13/2025 Refill [facility] [address] [place] [phone] Brooklyn Jalloh MD 09/11/2025 11:40 AM EDT Office Visit [facility] [address] [address] Trenton Fernandez CNP Bloating (Primary Dx); Intestinal dysbiosis; Gastroesophageal reflux disease without esophagitis 09/11/2025 Travel 09/06/2025 10:30 AM EDT Office Visit [facility] [address] [place] [phone] Abdirahman, Mel, OD Redness or discharge of eye (Primary Dx) 09/06/2025 Travel 09/03/2025 Refill [facility] [address] [address] Brooklyn Jalloh MD Moderate persistent asthma, unspecified whether complicated 09/02/2025 10:20 AM EDT Office Visit [facility] [address] [address] Georgette Tellez DO Moderate persistent asthma with acute exacerbation (Primary Dx) 09/02/2025 Travel 08/24/2025 Orders Only [facility] [address] [place] [address] Brooklyn Jalloh MD 08/24/2025 Refill [facility] [address] [place] [address] Brooklyn Jalloh MD Other migraine without status migrainosus, not intractable 08/23/2025 Refill [facility] [address] [place] [address] Brooklyn Jalloh MD 08/20/2025 Telephone [facility] [address] [place] [phone] Brooklyn Jalloh MD Med Refill 08/20/2025 Refill [facility] [address] [place] [phone] Brooklyn Jalloh MD 08/18/2025 Telephone [facility] [address] [place] [address] Brooklyn Jalloh MD Medication Question 08/18/2025 Refill [facility] [address] [place] [phone] Brooklyn Jalloh MD Cervical spondylosis; Degeneration of lumbar intervertebral disc 08/15/2025 Refill [facility] [address] [place] [address] Brooklyn Jalloh MD 08/13/2025 11:15 AM EDT Office Visit [facility] [address] [place] [phone] Brooklyn Jalloh MD Moderate persistent asthma without complication (Primary Dx); Acute idiopathic pericarditis; Esophageal dysphagia; Primary hypertension; Gastroesophageal reflux disease without esophagitis; Depression, recurrent (CMS/HCC); Generalized anxiety disorder; Fibromyalgia; Calcific tendonitis of right shoulder; Degeneration of intervertebral disc of lumbar region, unspecified whether pain present 08/13/2025 Travel 08/12/2025 Telephone [facility] [address] [place] [phone] Brooklyn Jalloh MD Chart Prep 08/05/2025 Refill [facility] [address] [place] [address] Brooklyn Jalloh MD 08/04/2025 Orders Only GENERIC EXTERNAL DATA DEPARTMENT Provider, Generic External Data 07/30/2025 Refill [facility] [address] [place] [phone] Brooklyn Jalloh MD 07/30/2025 Refill [facility] [address] [place] [address] Brooklyn Jalloh MD 07/23/2025 11:00 AM EDT Office Visit [address] [address] Kelly, MD Raffi Moderate persistent asthma, unspecified whether complicated (Primary Dx) 07/23/2025 Travel 07/22/[address] [address] Karley Smith [place] CHARTPREP 07/22/2025 Orders Only [facility] External Provider, [facility] 07/20/2025 Telephone [facility] [address] [place] [phone] Brooklyn Jalloh MD Referral 07/19/2025 1:40 PM EDT Office Visit [facility] [address] [place] [phone] Zhane Gandhi MD Chronic cough (Primary Dx); Viral URI 07/19/2025 Travel 07/13/2025 1:40 PM EDT Office Visit [facility] [address] [address] Lida Francisco MD Lower abdominal pain; Acute left-sided low back pain, unspecified whether sciatica present 07/13/2025 Travel 07/11/2025 Refill [facility] [address] [place] [address] Brooklyn Jalloh MD Biliary colic 07/06/2025 2:40 PM EDT Office Visit [facility] [address] [place] [phone] Zhane Gandhi MD Subacute cough (Primary Dx); [...] Description 10/20/2025 1:30 PM EST Office Visit [facility] [address] [place] [address] David Brysonaris [address] [place] [address] 10/29/2025 11:15 AM EST Office Visit [facility] [address] [place] [address] Brooklyn Jalloh MD [address] [place] [address] Health Maintenance Due Date Last Done Comments [...] PM EST Narrative 10/01/2025 2:44 PM EST [facility] [address] [place] [address] XRay Report Signed Patient: Machelle Wooten MR#: [id number] : 1970 Acct:[id number] Age/Sex: 55 / F ADM Date: 10/01/25 Loc: .HHCX Attending Dr: Brooklyn Jalloh MD Ordering Physician: Shayy Ashraf NP Date of Service: 10/01/25 Procedure(s): XR knee LT 4V Accession Number(s): [id number] cc: Shayy Ashraf CONCRETE SPREADER; Brooklyn Jalloh Reason for Exam: known OA [...] 10/01/25 1441 DD/ 1428 TD/TT: 10/01/25 1430 Gambling Counsellor: MARIBELL Procedure Note Donotuseinterpreter, Image - 10/01/[address] [address] XRay Report Signed Patient: Machelle WootenMR#: [id number] : 1970Acct:[id number] Age/Sex: 55 / FADM Date: 10/01/25 Loc: HO.HHCX Attending Dr: Brooklyn Jalloh MD Ordering Physician: Shayy Ashraf NP Date of Service: 10/01/25 Procedure(s): XR knee LT 4V Accession Number(s): [id number] cc: Shayy Ashraf CONCRETE SPREADER; Brooklyn Jalloh Reason for Exam: known OA [...] 10/01/25 1441 DD/ 1428 TD/TT: 10/01/25 1430 Gambling Counsellor: MARIBELL us Shayy Ashraf NP IMG XR PROCEDURES Final Result * XR Knee 4+ Views Right (10/01/2025 2:25 PM EST) Anatomical Region Laterality Modality Lower Extremities, Knee Right [facility] 10/01/2025 2:25 PM EST Narrative 10/01/2025 2:44 PM EST [facility] [address] [place] [address] XRay Report Signed Patient: Machelle Wooten MR#: [id number] : 1970 Acct:[id number] Age/Sex: 55 / F ADM Date: 10/01/25 Loc: HO.HHCX Attending Dr: Brooklyn Jalloh MD Ordering Physician: Shayy Ashraf NP Date of Service: 10/01/25 Procedure(s): XR knee RT 4V Accession Number(s): [id number] cc: Shayy Ashraf NP; Brooklyn Jalloh Reason [...] 10/01/25 1441 DD/ 1425 TD/TT: 10/01/25 1430 Gambling Counsellor: MARIBELL Procedure Note Donotuseinterpreter, Image - 10/01/2025 [facility] [address] [place] [address] XRay Report Signed Patient: Machelle WootenMR#: [id number] : 1970Acct:[id number] Age/Sex: 55 / FADM Date: 10/01/25 Loc: HO.HHCX Attending Dr: Brooklyn Jalloh MD Ordering Physician: Shayy Ashraf NP Date of Service: 10/01/25 Procedure(s): XR knee RT 4V Accession Number(s): [id number] cc: Shayy Ashraf CONCRETE SPREADER; Brooklyn Jalloh Reason for Exam: known OA, [...] by: Remington Nguyen MD 10/01/2025 02:41 PM [facility] Dictated By: Remington Nguyen MD Signed By: <Electronically signed by Remington Nguyen MD in OV> 10/01/25 1441 DD/ 1425 TD/TT: 10/01/25 1430 Gambling Counsellor: MARIBELL us Shayy Ashraf NP IMG XR PROCEDURES Final Result * POCT [...] Media Lot # [id number] Lot# Expiration Date 6,544 Urine (Urine, Random) 09/20/2025 9:[address] POINT OF CARE TEST ENTER/EDIT ORDERABLES Final Result * Culture, Urine, Routine (09/20/2025 9:40 AM EDT) Only the most recent of2 resultswithin the time period is included. Urine Urine specimen obtained by clean catch procedure / Unknown 09/20/2025 9:40 AM EDT 09/20/2025 1:01 PM EDT Comment:UACC Narrative [facility] - 09/21/2025 12:34 PM EDT Urine Culture No growth. Specimen Source: Urine clean catch [address] LAB MICROBIOLOGY - GENERAL ORD ERABLES Final Result [facility] [address] [place] [phone] * (ABNORMAL) Bacterial Vaginosis (09/20/2025 9:39 AM EDT) TRICHOMONAS VAGINALIS DETECTION BY PCR NOT DETECTED Not Detect [facility] BACTERIAL VAGINOSIS DETECTION BY PCR NEGATIVE Negative [facility] Comment:The BV organism targ [...] GROUP DETECTION BY PCR DETECTED(A) Not Detect [facility] Abhishek glab krusei PCR NOT DETECTED Not Detect [facility] Swab Vaginal structure / Unknown 09/20/2025 9:39 AM EDT 09/20/2025 1:01 PM EDT Gennarichard Paterica [facility] LAB MICROBIOLOGY - GENERAL ORD ERABLES Final Result [facility] [address] [place] [phone] * Chlamydia/N. Gonorrhoeae RNA, TMA, Vaginal (09/20/2025 9:39 AM EDT) CT PCR NOT DETECTED Not Detect. [facility] Comment:A not detected test [...] psychologicalconsequences. NG PCR NOT DETECTED Not Detect. [facility] Comment:A not detected test [...] EDT 09/20/2025 1:01 PM EDT Gennarichard Irizarry [facility] LAB MICROBIOLOGY - GENERAL ORD ERABLES Final Result [facility] [address] [place] [phone] * XR Chest 2 Views (09/02/2025 11:15 AM EDT) Only the most recent of2 resultswithin the time period is included. Anatomical Region Laterality Modality Chest Radiographic Zina ging 09/02/2025 11:1 5 AM EDT Narrative 09/02/2025 12:25 PM EDT [address] [address] XRay Report Signed Patient: Machelle Wooten MR#: [id number] : 1970 Acct:[id number] Age/Sex: 55 / F ADM Date: 09/02/25 Loc: HO.HHCX Attending Dr: Georgette Tellez DO Ordering Physician: Georgette Tellez DO Date of Service: 09/02/25 Procedure(s): XR chest 2V Accession Number(s): [id number] cc: Georgette Tellez DO Reason for Exam: [...] 09/02/25 1222 DD/ 1115 TD/TT: 09/02/25 1120 Gambling Counsellor: MARIBELL Procedure Note Donotuseinterpreter, Image - 09/02/[address] [address] XRay Report Signed Patient: Machelle WootenMR#: [id number] : 1970Acct:[id number] Age/Sex: 55 / FADM Date: 09/02/25 Loc: HO.HHCX Attending Dr: Georgette Tellez DO Ordering Physician: Georgette Tellez DO Date of Service: 09/02/25 Procedure(s): XR chest 2V Accession Number(s): [id number] cc: Georgette Tellez DO Reason for Exam: [...] 09/02/25 1222 DD/ 1115 TD/TT: 09/02/25 1120 Gambling Counsellor: MARIBELL Georgette Tellez DO IMG XR PROCEDURES Final Resu lt * Influenza A B2 ID NOW (Cano) (08/04/2025 11:48 AM EDT) IDNOW SERIAL# [id number] [facility] Influenza A Negative Negative [facility] Influenza B2 Negative Negative [facility] Influenza A B2 Note See Note [facility] Comment:The Cano ID NOW [...] PM EDT Generic External Data Provider LAB MICROBIOLOGY - GENERAL ORDERABLES Final Result [facility] [address] [place] [phone] * COVID-19 ID NOW (CANO) (08/04/2025 11:48 AM EDT) IDNOW SERIAL# [id number] [facility] COVID-19 TEST Negative Negative [facility] COVID-19 NOTE See Note [facility] Comment: Results are for the identification of SARS-CoV2 RNA. TheSARS-CoV2 RNA is generally detectable in respiratory samplesduring the acute phase of infection. Positive results areindicative of the presence of SARS-CoV-2 RNA; clinicalcorrelation with patient history and other diagnosticinformation is necessary to determine patient infectionstatus. Positive results do not rule out bacterial infectionor co- infection with other viruses.Testing facilities within the [facility] and [facility], incritories are required to report all positive results [...] use by authorized laboratories.Testing performed on the [employer] ID NOW utilizing NAAT. 08/04/2025 11:4 8 AM EDT 08/04/2025 12:03 PM EDT Personal On Demand External Data Provider LAB MOLECULAR UJNIE GNOSTICS ORDERABLES Final Result Performing Organization Address [facility] Co de Phone Number [facility] [address] [place] [phone] * High Sensitivity Troponin I (08/04/2025 11:48 AM EDT) Only the most recent of2 resultswithin the time period is included. TROPONIN I HIGH SENSITIVITY <2.7 <3.5 - 17.0 ng/L [facility] Comment:The Cano high sens itivity Troponin-I results should beused in conjunction with other diagnostic information suchas ECG, clinical observations and information, and patientsymptoms to aid in the diagnosis of ID. 08/04/2025 11:4 8 AM EDT 08/04/2025 12:03 PM EDT Personal On Demand External Data Provider LAB BLOOD ORDERAB LES Final Result Performing Organization Address [facility] Co de Phone Number [facility] [address] [place] [address] [phone] * Urinalysis w/reflex microscopic (08/04/2025 11:48 AM EDT) Color Urine Yellow [facility] Appearance Urine Clear [facility] PH 5.5 5.0 - 9.0 [facility] Glucose Urine UA Negative Negative mg/dL [facility] Urine Blood Negative Negative [facility] Specific [place] - Urine 1.010 1.005 - 1.025 [facility] Urine Protein Negative Neg-Trace mg/dL [facility] Urine Ketones Negative Negative mg/dL [facility] Nitrite Urine Negative Negative [facility] Leukocyte Esterase Urine Negative Negative [facility] 08/04/2025 11:4 8 AM EDT 08/04/2025 12:03 PM EDT Narrative [facility] - 08/04/2025 12:08 PM EDT Urine, Clean Catch us Generic External Data Provider LAB URINE ORDERAB LES Final Result Performing Organization Address City/State/[facility] Co de Phone Number [facility] [address] [place] [phone] * XR Chest 1 View (08/04/2025 10:37 AM EDT) Only the most recent of2 resultswithin the time period is included. Anatomical Region Laterality Modality Chest Radiographic Zina ging 08/04/2025 10:3 7 AM EDT Narrative 08/04/2025 10:54 AM EDT [address] [address] XRay Report Signed Patient: Machelle Wooten MR#: [id number] : 1970 Acct:[id number] Age/Sex: 55 / F ADM Date: 08/04/25 Loc: .ED Attending Dr: Ordering Physician: Lilly Cueto PA-C Date of Service: 08/04/25 Procedure(s): XR chest 1V Accession Number(s): [id number] cc: Lilly Cueto PA-C; Brooklyn Jalloh Reason [...] 08/04/25 1051 DD/ 1037 TD/TT: 08/04/25 1045 Gambling Counsellor: Procedure Note Donotuseinterpreter, Image - 08/04/[address] [address] XRay Report Signed Patient: Machelle WootenMR#: [id number] : 1970Acct:[id number] Age/Sex: 55 / FADM Date: 08/04/25 Loc: .ED Attending Dr: Ordering Physician: Lilly Cueto PA-C Date of Service: 08/04/25 Procedure(s): XR chest 1V Accession Number(s): [id number] cc: Lilly Cueto PA-C; Brooklyn Jalloh Reason [...] 08/04/25 1051 DD/ 1037 TD/TT: 08/04/25 1045 Gambling Counsellor: [facility] External Provider IMG XR PROCEDURES Final Result * (ABNORMAL) CBC auto differential (08/04/2025 9:33 AM EDT) White Blood Count 15.7(H) 4.8 - 10.8 X10*3/uL [facility] Red Blood Count 4.46 4.20 - 5.50 X10*6/uL [facility] Hemoglobin 12.3 12.0 - 16.0 g/dl [facility] Hematocrit 36.4(L) 37.0 - 47.0 % [facility] Mean Corpuscular Volume 81.6 80.0 - 98.0 fL [facility] Mean Corpuscular Hemoglobin 27.6 27.0 - 33.0 pg [facility] Mean Corpuscular HGB Conc 33.8 31.0 - 35.0 g/dl [facility] Red Cell Distribution Width 14.3 11.0 - 16.0 % [facility] Platelet Count 323 160 - 400 X10*3/uL [facility] Mean Platelet Volume 9.9 9.4 - 12.3 fL [facility] Neutrophils Percent Auto 71.1 45 - 73 % [facility] Imm Gran Pct Auto 0.3 0.0 - 0.4 % [facility] Lymphocytes Percent Auto 19.6(L) 20 - 40 % [facility] Monocytes Percent Auto 7.8 2 - 11 % [facility] Eosinophils Percent Auto 1.0 0 - 4 % [facility] Basophils Percent Auto 0.2 0 - 2 % [facility] NRBC Pct Auto 0.0 0.0 - 0.2 /100WBC [facility] Neutrophils Absolute Auto 11.2(H) 2.0 - 8.3 x10*3/uL [facility] Imm Gran Abs Auto 0.05(H) 0.00 - 0.03 X10*3/uL [facility] Lymphocytes Absolute Auto 3.1 1.2 - 4.9 X10*3/uL [facility] Monocytes Absolute Auto 1.2 0.1 - 1.2 X10*3/uL [facility] Eosinophils Absolute Auto 0.2 0.0 - 0.4 X10*3/uL [facility] Basophils Absolute Auto 0.0 0.0 - 0.2 X10*3/uL [facility] NRBC Abs Auto 0.000 0.0 - 0.012 X10*3/uL [facility] 08/04/2025 9:33 AM EDT 08/04/2025 9:35 AM EDT Generic External Data Provider LAB BLOOD ORDERAB LES Final Result Performing Organization Address City/[facility]/ZIP Co de Phone Number [facility] [address] [place] [phone] * Sed Rate by Modified Kyleren (08/04/2025 9:33 AM EDT) Erythrocyte Sedimentation Rate 18 0 - 20 MM/HR [facility] Comment:Patients with polycy themia and many hemoglobin abnormalitiesmay have depressed sed rates whereas patients with anemiamay have elevated sed rates. 08/04/2025 9:33 AM EDT 08/04/2025 1:17 PM EDT Generic External Data Provider LAB BLOOD ORDERAB LES Final Result Performing Organization Address [facility] Co de Phone Number [facility] [address] [place] [phone] * (ABNORMAL) Basic Metabolic Panel (08/04/2025 9:33 AM EDT) Sodium 141 135 - 145 mmol/L [facility] Potassium 4.0 3.3 - 5.1 mmol/L [facility] Chloride 106 96 - 108 mmol/L [facility] Carbon Dioxide 25 22 - 29 mmol/L [facility] Anion Gap 14 12 - 20 [facility] Urea Nitrogen (BUN) 13 9 - 16 mg/dL [facility] Creatinine, Serum 0.67 0.5 - 1.4 mg/dL [facility] Creatinine Clr Calc Pharmacy 100.3 [facility] Comment:Provided height and weight: 165.1 cm,86.001 kg.eGFR (calculated from the MDRD study equation) and eCrCl(calculated from the Cockcroft-Gault equation) are based ondifferent parameters and may not yield comparable results.If eCrCl result is absurd, please check patient'sheight/weight. Estimated Glomerular Filt Rate >60 [facility] Comment:Chronic Kidney Disea se: Estimated GFR < 60 mL/min/1.55o7Yifbpx Kidney Disease: Estimated GFR < 15 mL/min/1.73m2 Glucose 123(H) 60 - 115 mg/dL [facility] Calcium 9.2 8.4 - 10.2 mg/dL [facility] 08/04/2025 9:33 AM EDT 08/04/2025 9:35 AM EDT us Generic External Data Provider LAB BLOOD ORDERAB LES Final Result [facility] [address] [place] [address] [phone] * CTA Chest PE Protocal (07/22/2025 10:06 AM EDT) Anatomical Region Laterality Modality Body, Chest Computed Tomogra phy 07/22/2025 10:0 6 AM EDT Narrative 07/22/2025 10:51 AM EDT [address] [address] [address] Scan Report Signed Patient: Machelle Wooten MR#: [id number] : 1970 Acct:[id number] Age/Sex: 55 / F ADM Date: 07/22/25 Loc: .ED Attending Dr: Ordering Physician: Kaylie Choi Date of Service: 07/22/25 Procedure(s): CT angio chest PE protocol Accession Number(s): [id number] cc: Kaylie Choi; Brooklyn Jalloh Report Number: [id number]: Total DLP = 378.00 mGy-cm EXAMINATION: CT [...] 07/22/25 1048 DD/ 1006 TD/TT: 07/22/25 1029 Gambling Counsellor: Procedure Note Donotuseinterpreter, Image - 07/22/[address] [address] [address] Scan Report Signed Patient: Machelle Wooten#: [id number] : 1970Acct:[id number] Age/Sex: 55 / FADM Date: 07/22/25 Loc: HO.ED Attending Dr: Ordering Physician: Kaylie Choi Date of Service: 07/22/25 Procedure(s): CT angio chest PE protocol Accession Number(s): [id number] cc: Kaylie Choi; Brooklyn Jalloh Report Number: [id number]: Total DLP = 378.00 mGy-cm EXAMINATION: CT [...] 07/22/25 1048 DD/ 1006 TD/TT: 07/22/25 1029 Gambling Counsellor: [facility] External Provider IMG CT PROCEDURES Final Result * SARS-CoV-2 RNA, Influenza A/B, and RSV RNA, Ql NAAT (07/22/2025 9:11 AM EDT) Influenza A PCR NEGATIVE Negative [facility] Influenza B PCR NEGATIVE Negative [facility] Resp Syncy Virus RNA Qual PCR NEGATIVE Negative [facility] SARS COV2 PCR NEGATIVE Negative [facility] Comment:All test results mus t [...] use by authorized laboratories.Testing performed on the [employer] GeneXpert utilizingreal-time RT-PCR.All SARS CoV2 and positive influenza A/B results arereported to [facility]. 07/22/2025 9:11 AM EDT 07/22/2025 9:15 AM EDT Generic External Data Provider LAB MICROBIOLOGY - GENERAL ORDERABLES Final Result [facility] [address] [place] [phone] * (ABNORMAL) CBC (07/22/2025 9:11 AM EDT) White Blood Count 11.3(H) 4.8 - 10.8 X10*3/uL [facility] Red Blood Count 4.80 4.20 - 5.50 X10*6/uL [facility] Hemoglobin 13.0 12.0 - 16.0 g/dl [facility] Hematocrit 40.5 37.0 - 47.0 % [facility] Mean Corpuscular Volume 84.4 80.0 - 98.0 fL [facility] Mean Corpuscular Hemoglobin 27.1 27.0 - 33.0 pg [facility] Mean Corpuscular HGB Conc 32.1 31.0 - 35.0 g/dl [facility] Red Cell Distribution Width 14.4 11.0 - 16.0 % [facility] Platelet Count 327 160 - 400 X10*3/uL [facility] Mean Platelet Volume 10.3 9.4 - 12.3 fL [facility] NRBC Pct Auto 0.0 0.0 - 0.2 /100WBC [facility] NRBC Abs Auto 0.000 0.0 - 0.012 X10*3/uL [facility] 07/22/2025 9:11 AM EDT 07/22/2025 9:15 AM EDT Generic External Data Provider LAB BLOOD ORDERAB LES Final Result Performing Organization Address [facility] Co de Phone Number [facility] [address] [place] [phone] * Magnesium (07/22/2025 9:11 AM EDT) Pathologist [facility] [place] Magnesium 1.9 1.6 - 2.6 mg/dL [facility] 07/22/2025 9:11 AM EDT 07/22/2025 9:15 AM EDT Generic External Data Provider LAB BLOOD ORDERAB LES Final Result Performing Organization Address [facility] [place]/[facility] Co de Phone Number [facility] [address] [place] [address] [phone] * (ABNORMAL) Comprehensive Metabolic Panel (07/22/2025 9:11 AM EDT) Sodium 141 135 - 145 mmol/L [facility] Potassium 3.7 3.3 - 5.1 mmol/L [facility] Chloride 106 96 - 108 mmol/L [facility] Carbon Dioxide 26 22 - 29 mmol/L [facility] Anion Gap 13 12 - 20 [facility] Urea Nitrogen (BUN) 16 9 - 16 mg/dL [facility] Creatinine, Serum 0.79 0.5 - 1.4 mg/dL [facility] Creatinine Clr Calc Pharmacy 86.6 [facility] Comment:Provided height and weight: 165.1 cm,89.1 kg.eGFR (calculated from the MDRD study equation) and eCrCl(calculated from the Cockcroft-Gault equation) are based ondifferent parameters and may not yield comparable results.If eCrCl result is absurd, please check patient'sheight/weight. Estimated Glomerular Filt Rate >60 [facility] Comment:Chronic Kidney Disea se: Estimated GFR < 60 mL/min/1.53l8Wirjkd Kidney Disease: Estimated GFR < 15 mL/min/1.73m2 Glucose 104 60 - 115 mg/dL [facility] Calcium 9.3 8.4 - 10.2 mg/dL [facility] Bilirubin, Total 0.5 0.0 - 1.0 mg/dL [facility] Aspartate Amino Transferase 27 5 - 31 U/L [facility] Alanine Aminotransferase 33(H) 0 - 31 U/L [facility] Total Protein 7.3 6.5 - 8.0 g/dL [facility] Albumin Level 4.4 3.5 - 5.0 g/dL [facility] Alkaline Phosphatase 166(H) 39 - 117 U/L [facility] 07/22/2025 9:11 AM EDT 07/22/2025 9:15 AM EDT us Generic External Data Provider LAB BLOOD ORDERAB LES Final Result [facility] [address] [place] [phone] * Influenza B (ID NOW Rapid Molecular) (07/19/2025 1:59 PM EDT) Pathologist [facility] [place] Influenza B Negative Negative, Indeterminate [facility] Swab 07/19/2025 1:59 PM EDT Zhane Gandhi MD POINT OF CARE TEST ENTER/EDIT ORDERABLES Final Result Performing Organization Address [facility] [place]/[facility] Co de Phone Number [facility] [address] [place] [phone] * Influenza A (ID NOW Rapid Molecular) (07/19/2025 1:59 PM EDT) [facility] Influenza A Negative Negative, Indeterminate [facility] Swab 07/19/2025 1:59 PM EDT Zhane Gandhi MD POINT OF CARE TEST ENTER/EDIT ORDERABLES Final Result Performing Organization Address [facility] [place]/[facility] Co de Phone Number [facility] [address] [place] [phone] * POCT Rapid COVID Ag (07/19/2025 1:59 PM EDT) [facility] Rapid COVID Ag Negative [facility] Swab 07/19/2025 1:59 PM EDT Zhane Gandhi MD POINT OF CARE TEST ENTER/EDIT ORDERABLES Final Result Performing Organization Address [facility] de Phone Number [facility] [address] [place] [phone] * (ABNORMAL) POCT HGB A1C (05/07/2025 12:15 PM EDT) [facility] Hemoglobin A1C 6.1(A) 4.0 - 6.0 % QC Media Lot # [id number] Blood 05/07/2025 12:1 5 PM EDT [place] Jalloh MD POINT OF CARE TEST ENTER/EDIT ORDERABLES Final Result * Hepatitis C Antibody with Reflex to HCV, RNA, Quantitative, Real-Time PCR (04/02/2025 11:49 AM EDT) Hepatitis C Antibody Nonreactive Nonreactive [facility] Comment:Antibodies to HCV no t detected; does not exclude early acuteHCV infection. Blood Venous blood specimen / Unknown 04/02/2025 11:49 AM EDT 04/02/2025 1:17 PM EDT us [place] Jalloh MD LAB BLOOD ORDERABLES Final Res ult Performing Organization Address [facility] [place]/ZIP Co de Phone Number [facility] [address] [place] [address] [phone] * HIV-1/2 Antigen and Antibodies, Fourth Generation, with Reflexes (04/02/2025 11:49 AM EDT) Pathologist [facility] [place] HIV AB/AG Nonreactive Nonreactive [facility] Comment:HIV-1 p24 Ag and/or HIV-1/HIV-2 Ab not detected.A test result that is nonreactive does not exclude thepossibility of exposure to or infection with HIV-1 and/orHIV-2. Nonreactive results in this assay for individualswith prior exposure to HIV-1 and/or HIV-2 may be due toantigen and antibody levels that are below the limit ofdetection of this assay.The [employer] HIV Ag/Ab Combo assay result andsupplemental assay results should be interpreted inconjunction with the patient's clinical presentation,history and other laboratory results. If the results areinconsistent with clinical evidence, additional testing issuggested to confirm the result. Blood Venous blood specimen / Unknown 04/02/2025 11:49 AM EDT 04/02/2025 1:17 PM EDT us [place] Jalloh MD LAB BLOOD ORDERABLES Final Res ult Performing Organization Address City/[facility] [place]/ZIP Co de Phone Number [facility] [address] [place] [phone] * Pap Smear (03/30/2025 12:07 PM EDT) Swab 03/30/2025 12:0 7 PM EDT 03/31/2025 6:00 AM EDT [facility] - 04/02/2025 12:35 PM EDT ----- ------- Name: Garcia BarrosoMachelle rome Age/Sex: 55/F : 1970 Unit#: [id number] Attend Dr: KEILY FOREMAN CNM Re03/30/25 Status: DEP REF Location: HO.HHCLNP Disch: ----- ------- SPEC : [id number] RECD: 03/31/25 STATUS: ERNESTO HERNANDEZ NUM: [id number] KRYSTA: 03/30/25-[address] [facility] DR: KEILY FOREMAN CNM ENTERED: 03/31/25 SP TYPE: Pap [facility] : ORDERED: Pap Smear Interpretation Satisfactory for evaluation. Negative for intraepithelial lesion or malignancy. No endocervical cells seen. HPV High Risk: Negative HPV Genotyping 16: Negative HPV Genotyping 18: Negative Clinical Information LMP:Unknown date Previous PAP test:2018 Material Received ThinPrep-Cervical ----- ------- Signed (signature on file) YAMILETH Torres (ASCP) 04/02/25 1235 ----- ------- END OF REPORT us Keily Foreman [facility] CYTOLOGY ORDERABLES F inal Result [facility] [address] [place] [phone] * HPV DNA, Low/High Risk (03/30/2025 12:00 AM EDT) HPV High Risk Negative Negative [facility] HPV Genotype 16 Negative Negative [facility] HPV Genotype 18 Negative Negative [facility] Comment:HPV testing performe d at [facility] (CLIA#[id number]), [address] [place] [address].Testing for HPV was performed using the Shahida [...] 03/31/2025 6:0 0 AM EDT Keily Foreman CNM LAB BLOOD ORDERABLES Julianne robles Result [facility] [address] [place] [address] [phone] * BI US Breast Limited Right (08/18/2024) Anatomical Region Laterality Modality Breast Right Ultrasound Lilian Damasojulio PLANER TAILER IMG US PROCEDURES Final Result * (ABNORMAL) [...] estimation of LDL-C. Mitch SS et al. ARACLEI. 2013;310(19): 3902-3244 (http://education.[employer].com/faq/ELX184) Non-HDL Cholesterol 117 <130 mg/dL (calc) CONVERTED [...] Relevant to Health Maintenance Insurance [facility] < [address] [place] [id number] [facility] Care Teams Unemployment Inspector Relationship Specialty Start Date End Date [place] Jalloh MD [address] [place] [phone] PCP - General Family Medicine 07/17/21
--- OUTSIDE RECORDS SUMMARY | 2025-10-05 14:31 | XMS_ITS | Encounter Summary ---
Author Organization [employer] Address [address] [facility] 7t [place] [address] Care Team Providers Care Logging Rafter Laborer Name Role Phone [place] Jalloh MD Primary Care Provider [phone] Encounter Details Date Type Department Care Team (Late Contact Info) Description 05/11/2023 Orders Only [facility] [address] [place] [phone] [place] Jalloh MD [address] [place] [address] Onychomycosis (Primary Dx) Social History Tobacco Use [...] [facility] [address] [place] [address] Delaney Bryson [address] [place] [address] 10/29/2025 11:15 AM EST Office Visit [facility] [address] [place] [address] [place] Jall[place] MD [address] [place] [address] documented as of this encounter Visit Diagnoses Diagnosis Onychomycosis- Primary Dermatophytosis of nail documented in this encounter Additional Health Concerns Assessment Noted Time PHQ-9 Depression Total Score: 6 02/05/20 23 11:27 AM EDT documented as of this encounter Care Teams Logging Rafter Laborer Relationship Specialty Start Date End Date [place] Jalloh MD [address] [place] [phone] PCP - General Family Medicine 07/17/21 documented as of this encounter
--- OUTSIDE RECORDS SUMMARY | 2025-10-05 14:31 | XMS_ITS | Encounter Summary ---
Author Organization [employer] Address [address] [facility] 7t [place] [address] Care Team Providers Care Culinary Instructor Name Role Phone [place] Jalloh MD Primary Care Provider [phone] Encounter Details Date Type Department Care Team (Late Contact Info) Description 11/12/2022 Orders Only [facility] MEDICINE [address] [place] [address] [place] Jalloh MD [address] [place] [phone] Social History Tobacco Use Types Packs/Day Years [...] 1:30 PM EST Office Visit [facility] ADULT DENTAL [address] [place] [address] Delaney Bryson [address] [place] [address] 10/29/2025 11:15 AM EST Office Visit [facility] MEDICINE [address] [place] [address] [place] Jalloh MD [address] [place], [place] [phone] documented as of this encounter Visit Diagnoses Not on filedocumented in this encounter Care Teams Culinary Instructor Relationship Specialty Start Date End Date [place] Jalloh MD [address] [place], [place] [phone] PCP - General Family Medicine 07/17/21 documented as of this encounter
--- OUTSIDE RECORDS SUMMARY | 2025-10-05 14:31 | XMS_ITS | Encounter Summary ---
Author Organization [employer] Address [address] [facility] 7t [place] [address] Care Team Providers Care Technology Resource Teacher Name Role Phone [place] Jalloh MD Primary Care Provider [phone] Reason for Referral * Consultation (Routine) - Closed Specialty Diagnoses / Procedures Referred By Tenzin ahumada Referred To Contact Orthopaedic Surgery Diagnoses Primary osteoarthritis of both knees [place] Jalloh MD [address] [place] [phone] Phone: tel: fax: [facility] [address] [place] [address] Phone: tel: Referral ID Status Reason Start Date Expiration Date V isits Requested Visits Authorized [id number] Closed Specialty Services Required 02/18/2024 02/17/2025 1 1 Encounter Details Date Type Department Care Team (Late st Contact Info) Description 02/18/2024 Orders Only [facility] MED[facility] [address] [place] [address] [place] Jalloh MD [address] [place] [phone] Primary osteoarthritis of both knees (Primary Dx) [...] Description 10/20/2025 1:30 PM EST Office Visit [facility] ADULT DENTAL [address] [place] [phone] Delaney Bryson [address] [place] [address] 10/29/2025 11:15 AM EST Office Visit [facility] [address] [place] [phone] [place] Jalloh MD [address] [place] [address] Scheduled Referrals Name Type Priority Associated Diagnoses [...] PM EDT Narrative 03/09/2024 2:27 PM EDT [address] [address] XRay Report Signed Patient: Machelle Wooten MR#: [id number] : 1970 Acct:[id number] Age/Sex: 54 / F ADM Date: 03/09/24 Loc: HO.ED Attending Dr: Ordering Physician: Zack Lainez Date of Service: 03/09/24 Procedure(s): XR chest 2V Accession Number(s): [id number] cc: [place] Jalloh; Zack Lainez EXAMINATION: XR [...] in OV> 03/09/24 1424 DD/ 1408 TD/TT: Hearing Screener: CLEO Procedure Note Donotuseinterpreter, Image - 03/09/2024 [facility] [address] [place] [address] XRay Report Signed Patient: Machelle WootenMR#: [id number] : 1970Acct:[id number] Age/Sex: 54 / FADM Date: 03/09/24 Loc: .ED Attending Dr: Ordering Physician: Zack Lainez Date of Service: 03/09/24 Procedure(s): XR chest 2V Accession Number(s): [id number] cc: [place] Jalloh; Zack Lainez EXAMINATION: XR [...] DO inOV> 03/09/24 1424 DD/ 1408 TD/TT: Hearing Screener: CLEO [facility] External Provider IMG XR PROCEDURES Edited Result - Final documented in this encounter Visit Diagnoses Diagnosis Primary osteoarthritis of both knees- Primary documented in this encounter Additional Health Concerns Assessment Noted Time PHQ-9 Depression Total Score: 6 02/05/20 23 11:27 AM EDT documented as of this encounter Care Teams Technology Resource Teacher Relationship Specialty Start Date End Date [place] Jalloh MD [address] [place] [address] PCP - General Family Medicine 07/17/21 documented as of this encounter
--- OUTSIDE RECORDS SUMMARY | 2025-10-05 14:31 | XMS_ITS | Clinical Summary ---
Author Organization [address] [facility] Address [address] [place] [address] Phone Care Team Providers Care Size Mixer Name Role Phone [place] Jalloh MD Primary Care Provider [phone] Allergies Active Allergy Reactions Criticality Noted Date [...] 04/01/2024 10:59 AM EDT Plan of Treatment Health Maintenance Due Date Last Done Comments [...] * Annual BMP Blood Test (08/31/2024) Pathologist [facility] Annual BMP Blood Test abstracted [facility] Provider HEALTH MAINTENANCE Final Result * HIV Screening (08/18/2024) [facility] HIV Screening abstracted [facility] Provider HEALTH MAINTENANCE Final Result * Hepatitis C Screening (08/18/2024) Pathologist [facility] Hepatitis C Screening abstracted [facility] Provider HEALTH MAINTENANCE Final Result * Lipid panel (02/21/2021) [facility] LDL/HDL Ratio 0 Comment:abstracted, no inter pretation Triglycerides 0 mg/dL Comment:abstracted, no inter pretation Cholesterol 0 mg/dL Comment:abstracted, no inter pretation HDL 0 mg/dL Comment:abstracted, no inter pretation LDL Cholesterol 0 mg/dL Comment:abstracted, no inter pretation Blood Venous blood specimen / Unknown Result [facility] Provider LAB BLOOD ORDERABLES Julianne l Result from Last 3 Months or Most Recently Relevant to Health Maintenance Insurance [facility] MEDICARE Member Subscriber Plan / Payer (Ef fective 2018-Present) Name:MACHELLE WOOTEN Relation to Subscriber:Self Name:Machelle Wooten Payer ID:[id number] Group ID:[id number] Type:Not on file Address: [place] [address] [place] [phone] Care Teams Size Mixer Relationship Specialty Start Date End Date [place] Jalloh MD [address] [place] [address] [facility] - General 09/12/22
--- OUTSIDE RECORDS SUMMARY | 2025-10-05 14:31 | XMS_ITS | Encounter Summary ---
Author Organization [employer] Address [address] [facility] 7t [place] [address] Care Team Providers Care Hotel Clerk Name Role Phone [place] Jalloh MD Primary Care Provider [phone] Reason for Visit * Reason Comments Med Refill Encounter Details Date Type Department Care Team (Late Contact Info) Description 07/29/2023 Refill [facility] [address] [place], [place] [phone] [place] Jalloh MD [address] [place], [place] [phone] Social History Tobacco Use Types Packs/Day Years [...] 1:30 PM EST Office Visit [facility] ADULT DENTAL [address] [place] [address] Delaney Bryson [address] [place] [address] 10/29/2025 11:15 AM EST Office Visit [facility] MEDICINE [address] [place] [address] [place] Jalloh MD [address] [place] [address] documented as of this encounter Visit Diagnoses Not on filedocumented in this encounter Additional Health Concerns Assessment Noted Time PHQ-9 Depression Total Score: 6 02/05/20 23 11:27 AM EDT documented as of this encounter Care Teams Hotel Clerk Relationship Specialty Start Date End Date [place] Jalloh MD [address] [place] [address] PCP - General Family Medicine 07/17/21 documented as of this encounter
--- OUTSIDE RECORDS SUMMARY | 2025-10-05 14:31 | XMS_ITS | Encounter Summary ---
Author Organization [employer] [facility] Address [address] [facility] 7t [place] [address] Care Team Providers Care Public Health Training Assistant Name Role Phone [place] Jalloh MD Primary Care Provider [phone] Encounter Details Date Type Department Care Team (Latest Contact Info) Description 06/27/2022 Abstract [facility] CONVERSIONS Dental, Provider, DDS Social History [...] Visit [facility] ADULT DENTAL [address] [place] [address] BraydonDelaney ramos [address] [place] [address] 10/29/2025 11:15 AM EST Office Visit [facility] MEDICINE [address] [place] [address] [place] Jalloh MD [address] [place] [address] documented as of this encounter Visit Diagnoses Not on filedocumented in this encounter Care Teams Public Health Training Assistant Relationship Specialty Start Date End Date [place] Jalloh MD [address] [place] [phone] PCP - General Family Medicine 07/17/21 documented as of this encounter
--- OUTSIDE RECORDS SUMMARY | 2025-10-05 14:31 | XMS_ITS | Data Portability ---
Author Organization [place] [facility], Allergy Address [address] [address] Assessment Encounter Date Assessment Date Assessment LastModified [...] oil 0.01 % ear drops 2024 025 [facility], [address] [place], [place], [id number], 09/22/2025 10:22:46 fluocinol one acetonide oil 0.01 % ear drops 2024 025 [facility], [address] [place], [place], [id number], 05/05/2025 09:22:39 Patient TargetsNo targets recorded. Patient [...] Address Organization Details Recorded Time Bilateral tinnitus 00789890232 02 Active 2022 Tinnitus, bilateral ; Note: Date Diagnosed : 04/18/2023 4:24 PM (H93.13) Not Available [facility] 4 03:26:19 Sensorine ural hearing loss of bilateral ears 542254525 Active 2022 Sensorine ural hearing loss, bilateral ; Note: Date Diagnosed : 04/18/2023 2:04 PM (H90.3) Not Available [facility] 4 03:26:18 Itching of skin 101763752 Active 2022 Other pruritus; Note: Date Diagnosed : 04/18/2023 4:24 PM (L29.8) Not Available [facility] 4 03:26:18 Problem Notes None recorded. Procedures Surgical History Date Name Laterality Status Provider Name and Address Organization Details Recorded Time 01/06/2025 Air & Speech Audio with Tymps - 58975, 45029 & 22341 completed NAJMA DENIS, [facility] 100 [facility],[address], [address], [facility] - [facility] 01/06/2025 09:33:21 Imaging Results None recorded. Procedure Notes None recorded. Medical Equipment None Reported. Allergies Allergen ID Allergen Name Allergen Category Reaction Reaction Severity Criticality Documentation Date Start Date Code Code System Note Provider Name and Address Organization Details Recorded Time 041779 Fish (substanc e) food,medi cation Not available Not available Not available 04/07/2024 01564 1005 SNOMED React ion: Hives , Rash; Not Available [facility] 4 01:27:00 Medications Name Sig Start [...] 800 mg tablet active Medicatio n ID: [id number] Br and Name: ibuprofen Send Method: E-Prescri bed Subs Allowed: subs OK Medica tionGener icName: ibuprofen Not Available Not Available Not Available fluconazol e 150 mg tablet TAKE 1 TABLET BY MOUTH FOR 1 DOSE active Not Available Not Available No t Available senna 8.6 mg tablet active Medicatio n ID: [id number] Br and Name: senna Sen d Method: [...] Updated DateTime 12/25/2024 165.1 cm 25.8 kg/m2 62414.82 g [facility] 12/25/2024 11:38:16 Date Recorded Body height Body mass index (BMI) Body weight Provider Name and Address Organization Details Last Updated DateTime 06/17/2025 165.1 cm 25.8 kg/m2 57669.82 g [facility] 06/17/2025 11:25:03 Social History None [...] ICD10 Code Diagnosis IMO Codes Diagnosis Note [id number] IMMANUEL CARCAMO PA-C [facility] [address] [address] 12/25/2024 11:28:54 12/25/2024 11:54:46 Itching of skin 642997708 L29.89 Sensorineu ral hearing loss of bilateral ears 222608135 H90.3 Bilateral tinnitus 03580 64090 102 H93.13 [id number] PATRIZIA FERREIRA [facility] [address] [address] 01/06/2025 09:20:17 01/06/2025 09:38:10 Sensorineural hearing loss of bilateral ears 717549421 H90.3 Audiologic al evaluation results: Normal sloping to mild sensorineu ral hearing loss with excellent word recognitio n, bilaterall y. Tympanomet ry:Right Ear:Type ALeft Ear:Type A [id number] LOIR KHANNA PA-C [facility] [address] [address] 06/17/2025 11:04:14 06/17/2025 11:41:18 Itching of skin 078685285 L29.89 Sensorineu ral hearing loss of bilateral ears 297153633 H90.3 Health Concerns Section Related Observation LastModified by Organization Detai ls LastModified Time None Recorded Concern Status LastModified by Organization Details LastModified Time None Recorded Advance Directives Directive None Recorded Payers Insurance Date Sequence Insurance Name Policy Number Policy Gordon Covered Member ID Gordon Member ID Guarantor Name 03/02/2025 1 [facility] [place]/ADV ANTAGE - HMO) Machelle Barroso [id number] Machelle Barroso 08/16/2025 1 [facility] - DOS ON OR AFTER 2023 - ONE [employer]ARE (MEDICARE REPLACEMENT/ADV ANTAGE - HMO) Machelle Barroso [id number] Machelle Barroso Notes Date Note Type Note [...] itchier when she is anxious. Immanuel nguyen [place] - [facility] 12/25/2024 12:24:29 01/06/2025 text/html Audiological Evaluation HPIReported by PatientHearing LossFor hearing loss perceived, patient reportsgradual onset. PATRIZIA FERREIRA 100 [facility],[address], [address], [facility] 01/06/2025 09:35:45 06/17/2025 text/html ROS [...] stable HF SNHL JAIMEE SNOW MD 100 [facility] 100, [place], [address], [facility] 06/18/2025 14:16:14 OBGyn Episode No OBEpisode recorded.
--- OUTSIDE RECORDS SUMMARY | 2025-10-05 14:31 | XMS_ITS | Encounter Summary ---
Author Organization [employer] Address [address] [facility] [address] [facility] [address] 7[address] [place] [address] Care Team Providers Care Concrete Bucket Hooker Name Role Phone Brooklyn Jalloh MD Primary Care Provider [phone] Encounter Details Date Type Department Care Team (Late st Contact Info) Description 12/22/2023 Orders Only [facility] [address] [place], [place] [phone] Brooklyn Jalloh MD [address] [place], [place] [phone] Bronchitis (Primary Dx) Social History Tobacco Use [...] 1:30 PM EST Office Visit [facility] ADULT DENTAL [address] [place] [address] Braydon, Delaney [address] [place] [address] 10/29/2025 11:15 AM EST Office Visit [facility] MED[facility] [address] [place] [address] Brooklyn Jalloh MD [address] [place] [address] documented as of this encounter Procedures Procedure Name Priority Date/Time Associated Diagnosis Comments CBC WITH AUTO DIFFERENTIAL Routine 12/25/2023 12:28 PM EST Bronchitis documented in this encounter Results * (ABNORMAL) CBC auto differential (12/25/2023 12:28 PM EST) White Blood Count 15.4(H) 4.8 - 10.8 X10*3/uL [facility] Red Blood Count 5.11 4.20 - 5.50 X10*6/uL [facility] Hemoglobin 13.7 12.0 - 16.0 g/dl [facility] Hematocrit 42.6 37.0 - 47.0 % [facility] Mean Corpuscular Volume 83.4 80.0 - 98.0 fL [facility] Mean Corpuscular Hemoglobin 26.8(L) 27.0 - 33.0 pg [facility] Mean Corpuscular HGB Conc 32.2 31.0 - 35.0 g/dl [facility] Red Cell Distribution Width 13.9 11.0 - 16.0 % [facility] Platelet Count 442(H) 160 - 400 X10*3/uL [facility] Mean Platelet Volume 10.1 9.4 - 12.3 fL [facility] Neutrophils Percent Auto 71.8 45 - 73 % [facility] Imm Gran Pct Auto 0.5(H) 0.0 - 0.4 % [facility] Lymphocytes Percent Auto 20.8 20 - 40 % [facility] Monocytes Percent Auto 6.7 2 - 11 % [facility] Eosinophils Percent Auto 0.1 0 - 4 % [facility] Basophils Percent Auto 0.1 0 - 2 % [facility] NRBC Pct Auto 0.0 0.0 - 0.2 /100WBC [facility] Neutrophils Absolute Auto 11.0(H) 2.0 - 8.3 x10*3/uL [facility] Imm Gran Abs Auto 0.08(H) 0.00 - 0.03 X10*3/uL [facility] Lymphocytes Absolute Auto 3.2 1.2 - 4.9 X10*3/uL [facility] Monocytes Absolute Auto 1.0 0.1 - 1.2 X10*3/uL [facility] Eosinophils Absolute Auto 0.0 0.0 - 0.4 X10*3/uL [facility] Basophils Absolute Auto 0.0 0.0 - 0.2 X10*3/uL [facility] NRBC Abs Auto 0.000 0.0 - 0.012 X10*3/uL [facility] Blood Venous blood specimen / Unknown 12/25/2023 12:28 PM EST 12/25/2023 1:09 PM EST Brooklyn Jalloh MD LAB BLOOD ORDERABLES Final Res ult [facility] [address] [place] [address] [phone] documented in this encounter Visit Diagnoses Diagnosis Bronchitis- Primary Bronchitis, not specified as acute or chronic documented in this encounter Additional Health Concerns Assessment Noted Time PHQ-9 Depression Total Score: 6 02/05/20 23 11:27 AM EDT documented as of this encounter Care Teams Concrete Bucket Hooker Relationship Specialty Start Date End Date Brooklyn Jalloh MD [address] [place] [address] PCP - General Family Medicine 07/17/21 documented as of this encounter
--- OUTSIDE RECORDS SUMMARY | 2025-10-05 14:32 | XMS_ITS | Encounter Summary ---
Author Organization [facility] Address [address] [facility] [facility] [address] [place] [address] Care Team Providers Care Project Coordinator Rn Name Role Phone Brooklyn Jalloh MD Primary Care Provider [phone] Encounter Details Date Type Department Care Team [...] 10/20/2025 1:30 PM EST Office Visit [facility] ADULT D[facility]AL [address] [place] [address] Braydon, Delaney [address] [place] [address] 10/29/2025 11:15 AM EST Office Visit [facility] MEDICINE [address] [place] [address] Brooklyn Jalloh MD [address] [place] [address] documented as of this encounter Visit Diagnoses Not on filedocumented in this encounter Additional Health Concerns Assessment Noted Time PHQ-9 Depression Total Score: 19 025 11:41 AM EDT documented as of this encounter Care Teams Project Coordinator Rn Relationship Specialty Start Date End Date Brooklyn Jalloh MD [address] [place] [address] PCP - General Family Medicine 07/17/21 documented as of this encounter
--- OUTSIDE RECORDS SUMMARY | 2025-10-05 14:32 | XMS_ITS | Encounter Summary ---
Author Organization [employer] Address [address] [facility] [address] [place] [address] Care Team Providers Care Db2 Dba Name Role Phone Brooklyn Jalloh MD Primary Care Provider [phone] Encounter Details Date Type Department Care Team (Late st Contact Info) Description 03/10/2024 Orders Only [facility] MEDICINE [address] [place], [place] [phone] Brooklyn Jalloh MD [address] [place] [address] Social History Tobacco Use Types Packs/Day Years [...] 1:30 PM EST Office Visit [facility] ADULT DENTAL [address] [place], [place] [phone] Braydon, Delaney [address] [place] [address] 10/29/2025 11:15 AM EST Office Visit [facility] MEDICINE [address] [place] [address] Brooklyn Jalloh MD [address] [place] [address] documented as of this encounter Visit Diagnoses Not on filedocumented in this encounter Additional Health Concerns Assessment Noted Time PHQ-9 Depression Total Score: 6 02/05/20 23 11:27 AM EDT documented as of this encounter Care Teams Db2 Dba Relationship Specialty Start Date End Date Brooklyn Jalloh MD [address] [place] [address] PCP - General Family Medicine 07/17/21 documented as of this encounter
--- OUTSIDE RECORDS SUMMARY | 2025-10-05 14:32 | XMS_ITS | Encounter Summary ---
Author Organization [employer] Address [address] [facility] [place] [address] Care Team Providers Care Hydro Station Supervisor Name Role Phone Brooklyn Jalloh MD Primary Care Provider [phone] Reason for Visit * Reason Comments Med Refill Encounter Details Date Type Department Care Team (Late st Contact Info) Description 09/24/2025 Refill [facility] [address] [place] [address] Brooklyn Jalloh MD [address] [place] [address] Cough in adult patient Social History Tobacco [...] 1:30 PM EST Office Visit [facility] [address] [place] [address] Delaney Bryson [address] [place] [address] 10/29/2025 11:15 AM EST Office Visit [facility] [address] [place] [address] Brooklyn Jalloh MD [address] [place] [address] documented as of this encounter Visit Diagnoses Diagnosis Cough in adult patient documented in this encounter Additional Health Concerns Assessment Noted Time PHQ-9 Depression Total Score: 19 025 11:41 AM EDT documented as of this encounter Care Teams Hydro Station Supervisor Relationship Specialty Start Date End Date Brooklyn Jlaloh MD [address] [place] [phone] PCP - General Family Medicine 07/17/21 documented as of this encounter
--- OUTSIDE RECORDS SUMMARY | 2025-10-05 14:32 | XMS_ITS | Encounter Summary ---
Author Organization [employer] Address 75 [facility] 7t [place] [address] Care Team Providers Care Welder And Fitter Name Role Phone Brooklyn Jalloh MD Primary Care Provider Encounter Details Date Type Department Care Team ([facility] st Contact Info) Description 03/19/2025 Orders Only [facility] [address] [place] [address] Brooklyn Jalloh MD [address] [place] [address] Contact with and (suspected) exposure to infections [...] Description 10/20/2025 1:30 PM EST Office Visit [facility] ADULT DENTAL [address] [place] [address] Braydon, Delaney [address] [place] [address] 10/29/2025 11:15 AM EST Office Visit [facility] MEDIC[facility] [address] [place] [address] Brooklyn Jalloh MD [address] [place] [address] documented as of this encounter Procedures Procedure [...] AM EDT) T Spot TB Negative Negative [facility] Comment:A negative test resu lt [...] as aquantitative test. TS PANEL A 0 [facility] TS PANEL B 0 [facility] Negative Control Passed [facility] Positive Control Passed [facility] Comment:For additional infor luke, please refer [email or web address]/faq/ROD644(This link is being provided for informational/educational purposes only.)THIS TEST WAS PERFORMED AT:[facility] [id number] [place] [address]MSVAKKNMARY SONW MD,PHD 04/02/2025 11:4 9 AM EDT 04/02/2025 1:07 PM EDT Brooklyn Jalloh MD LAB BLOOD ORDERABLES Final Res ult [facility] [address] [place] [phone] * Hepatitis C Antibody with Reflex to HCV, RNA, Quantitative, Real-Time PCR (04/02/2025 11:49 AM EDT) Hepatitis C Antibody Nonreactive Nonreactive [facility] Comment:Antibodies to HCV no t detected; does not exclude early acuteHCV infection. Blood Venous blood specimen / Unknown 04/02/2025 11:49 AM EDT 04/02/2025 1:17 PM EDT us Brooklyn Jalloh MD LAB BLOOD ORDERABLES Final Res ult Performing Organization Address [facility] de Phone Number [facility] [address] [place] [phone] * HIV-1/2 Antigen and Antibodies, Fourth Generation, with Reflexes (04/02/2025 11:49 AM EDT) HIV AB/AG Nonreactive Nonreactive [facility] Comment:HIV-1 p24 Ag and/or HIV-1/HIV-2 Ab not detected.A test result that is nonreactive does not exclude thepossibility of exposure to or infection with HIV-1 and/orHIV-2. Nonreactive results in this assay for individualswith prior exposure to HIV-1 and/or HIV-2 may be due toantigen and antibody levels that are below the limit ofdetection of this assay.The [employer] HIV Ag/Ab Combo assay result andsupplemental assay results should be interpreted inconjunction with the patient's clinical presentation,history and other laboratory results. If the results areinconsistent with clinical evidence, additional testing issuggested to confirm the result. Blood Venous blood specimen / Unknown 04/02/2025 11:49 AM EDT 04/02/2025 1:17 PM EDT us Brooklyn Jalloh MD LAB BLOOD ORDERABLES Final Res ult Performing Organization Address [facility] Co de Phone Number [facility] [address] [place] [address] [phone] documented in this encounter Visit Diagnoses Diagnosis Contact with and (suspected) exposure to infections with a predominantly sexual mode of transmission- Primary documented in this encounter Additional Health Concerns Assessment Noted Time PHQ-9 Depression Total Score: 5 03/16/20 24 11:45 AM EDT documented as of this encounter Care Teams Welder And Fitter Relationship Specialty Start Date End Date Brooklyn Jalloh MD [address] [place] [address] PCP - General Family Medicine 07/17/21 documented as of this encounter
--- OUTSIDE RECORDS SUMMARY | 2025-10-05 14:32 | XMS_ITS | Encounter Summary ---
Author Organization [employer] Address 75 [facility] 7t [place] [address] Care Team Providers Care Plastics Scientist Name Role Phone Brooklyn Jalloh MD Primary Care Provider [phone] Reason for Visit * Reason Comments Med Refill Encounter Details Date Type Department Care Team ([facility] st Contact Info) Description 08/23/2025 Refill [facility] [address] [place] [address] Brooklyn Jalloh MD [address] [place] [address] Social History Tobacco Use Types Packs/Day Years [...] Description 10/20/2025 1:30 PM EST Office Visit [facility] ADULT [facility] [address] [place] [address] David Brysonaris [address] [place] [address] 10/29/2025 11:15 AM EST Office Visit [facility] [address] [place] [address] Brooklyn Jalloh MD [address] [place] [address] documented as of this encounter Visit Diagnoses Not on filedocumented in this encounter Additional Health Concerns Assessment Noted Time PHQ-9 Depression Total Score: 19 025 11:41 AM EDT documented as of this encounter Care Teams Plastics Scientist Relationship Specialty Start Date End Date Brooklyn Jalloh MD [address] [place] [phone] PCP - General Family Medicine 07/17/21 documented as of this encounter
--- OUTSIDE RECORDS SUMMARY | 2025-10-05 14:32 | XMS_ITS | Encounter Summary ---
Author Organization [employer] Address [address] [facility] 7t [place] [address] Care Team Providers Care Tax Evaluator Name Role Phone Brooklyn Jalloh MD Primary Care Provider Reason for Visit * Reason Onset Date Comments Appointment Request 03/19/2025 Encounter Details Date Type Department Care Team ([facility] st Contact Info) Description 03/19/2025 Telephone [facility] MEDICINE [address] [place] [address] Brooklyn Jalloh MD [address] [place] [address] Appointment Request Social History Tobacco Use Types [...] [facility] ADULT DENTAL [address] [place] [address] Braydon, Delaney [address] [place] [address] 10/29/2025 11:15 AM EST Office Visit [facility] MEDICINE [address] [place] [address] Brooklyn Jalloh MD [address] [place] [address] documented as of this encounter Visit Diagnoses Not on filedocumented in this encounter Additional Health Concerns Assessment Noted Time PHQ-9 Depression Total Score: 5 03/16/20 24 11:45 AM EDT documented as of this encounter Care Teams Tax Evaluator Relationship Specialty Start Date End Date Brooklyn Jalloh MD [address] [place] [address] PCP - General Family Medicine 07/17/21 documented as of this encounter
== END ==
LOC: HO.CARD 12:48
PROVIDERS: PCP General Practice; Visit Provider Internal Medicine
DX: R07.2 Precordial pain (principal)
CPT/HCPCS: 93306

== ENCOUNTER → 2025-10-05 12:52 | Outpatient (BNV) | payer OTHER, SELFPAY | PROVIDERS: PCP General Practice; Visit Provider Internal Medicine Cardiovascular Disease | DX: I51.7 Cardiomegaly (principal) | CPT/HCPCS: 93306 ==

== ENCOUNTER 2025-11-10 09:48 | Outpatient (AMB) | payer OTHER, SELFPAY ==
--- NOTE | 2025-11-10 09:50 | A.OFFVIS_ITS ---
Vital Signs 11/10/25 10:00 Height 5 ft 5 in Weight 187 lb BMI 31.1 Intake Visit Reasons: OV- B/L knee pain Intake Note: Machelle is 54 year old female who presents with complaints of progressively worsening bilateral knee pains. The patient describes her knee pains as sharp in nature. She has had cortisone injections in the past which gave her minimal relief. She has also had Durolane viscosupplementation injections which gave her good relief. She has failed the last 3 months of conservative treatment which has included Tylenol, ibuprofen, gabapentin, baclofen, a home exercise program and physical therapy exercises. At this point her bilateral knee pains are interfering with her activities of daily living and her ability to sleep well through the night. She has had cortisone injections in the past which gave her no relief. Insight Leader Required: Yes Insight Leader Language: Area Sales Manager Services: Insight Leader Present Insight Leader Name: [id number] Allergies shrimp (SHRIMP) Allergy (Unknown, Verified 11/10/25 10:01) UNKNOWN Medication List - Last Reconciled 11/10/25 by Ramesh Alba MD acetaminophen ER (Tylenol 8 Hour) 650 mg PO Q8H albuterol sulfate 90 mcg/actuation (Ventolin HFA) 2 puffs inhalation QID PRN amoxicillin-pot clavulanate 875-125 mg 1 tab PO BID atorvastatin 20 mg PO DAILY baclofen 10 mg PO DAILY buspirone 10 mg PO BID colchicine 0.6 mg PO DAILY 120 days docusate sodium 100 mg PO BID PRN fluocinolone acetonide oil 0.01% 3 drps otic (ears) fluoxetine 40 mg PO QAM lggbaavphbo-ijvhusybg-jzwagoxo 200-62.5-25 mcg (Trelegy Ellipta) 1 inh inhalation DAILY furosemide (Lasix) 40 mg PO QAM gabapentin 100 mg PO DAILY gabapentin 400 mg PO BID ibuprofen 600 mg PO Q6H PRN ibuprofen 800 mg PO TID 14 days ipratropium bromide 2 sprays intranasal TID-QID PRN 30 days lactulose 10 grams (15 mL) PO DAILY PRN leg brace (Knee Support Brace) SWETA-PULL LITE, LT, L lidocaine 5% 1 patch topical DAILY lisinopril 5 mg PO DAILY loratadine 10 mg PO DAILY melatonin mg PO metformin ER 500 mg PO DAILY omeprazole 20 mg PO DAILY potassium chloride ER (K-Tab) 20 mEq PO BID semaglutide mg subcut simethicone (Gas Relief (simethicone)) 80 mg PO Q8H PRN sucralfate 1 g PO BID topiramate (Topamax) 25 mg PO DAILY trazodone 25 mg PO DAILY triamcinolone acetonide 0.1% appl topical PFSH Medical History Other and unspecified hyperlipidemia Essential hypertension Family history of coronary artery disease Bilateral knee pain Chronic pain Fibromyalgia Surgical History History of cholecystectomy H/O section H/O lateral meniscus repair of left knee History of hysterectomy Family History Father History of open heart surgery Brother Hypertension Mother Colon cancer Social History Household Members Other:: son Housing: Apartment Alcohol intake: never Patient Tobacco Use Status: Never used Tobacco Current occupational status: disabled Current occupation: Right Handed Physical Exam Vital Signs: BMI result Body Mass Index 31.1 Extrem Other: Bilateral knee examination shows minimal effusions, palpable crepitus with range of motion, pain with range of motion, no instability Assessment & Plan Assessment & Plan (1) Osteoarthritis of left knee: Code(s): M17.12 - Unilateral primary osteoarthritis, left knee Category: Medical (2) Osteoarthritis of right knee: Code(s): M17.11 - Unilateral primary osteoarthritis, right knee Category: Medical Plan Ms. Jose Barroso presents with bilateral knee pains due to osteoarthritis. I had a lengthy discussion with the patient regarding the treatment options. I will see if the patient's insurance company will cover a another Durolane viscosupplementation injection for both of her knees. I will see her back once the injections are approved. Feel free to call me at any time should questions regarding her orthopedic management arise. I spent 22 minutes in reviewing the patient's records and imaging studies, seeing the patient and documenting in the medical record. Coding Level of Care Code Est Pt Level 3 (01407) Add On Problem Visit Only Diagnoses Osteoarthritis of left knee M17.12 Osteoarthritis of right knee M17.11
[2025-11-10 10:00] VITALS: BMI 31.1
--- OUTSIDE RECORDS SUMMARY | 2025-11-10 11:44 | XMS_ITS | Encounter Summary ---
Author Organization [employer] Address 75 [facility] 7t [place] [address] Care Team Providers Care Creel Operator Name Role Phone Brooklyn Jalloh MD Primary Care Provider [phone] Encounter Details Date Type Department Care Team (Late st Contact Info) Description 01/28/2023 Orders Only [facility] [address] [place] [address] Sarika Jenkins CNM [address] [place] [address] Candidiasis of vulva and vagina (Primary Dx) [...] documented in this encounter Plan of Treatment Not on file documented as of this encounter Visit Diagnoses Diagnosis Candidiasis of vulva and vagina- Primary documented in this encounter Care Teams Creel Operator Relationship Specialty Start Date End Date Brooklyn Jalloh MD [address] [place] [id number] PCP - General Family Medicine 07/17/21 documented as of this encounter
--- OUTSIDE RECORDS SUMMARY | 2025-11-10 11:44 | XMS_ITS | Encounter Summary ---
Author Organization [employer] Address 75 [facility] 7t [place] [address] Care Team Providers Care Wood Boat Builder Supervisor Name Role Phone Brooklyn Jalloh MD Primary Care Provider [phone] Reason for Visit * Reason Onset Date Comments triage 03/06/2023 Encounter Details Date Type Department Care Team ([facility] st Contact Info) Description 03/06/2023 Telephone [facility] MEDICINE [address] [place], [place] [phone] Brooklyn Jalloh MD [address] [place] [address] triage Social History Tobacco Use Types Packs/Day [...] 03/06/2023 3:39 PM EDT triage call with [facility] Bale Tie Machine Operator ID [id number] Pt reports itchiness on face. Pt reports this has been for two days and has some red spots now. Pthas had this before in different areas of the body. Pt has seen reed worker Cassie and received cream to help but doesn't know the name of the cream. Pt is offered to come to [facility] to be seen by provider but, declines. Pt wants only to have apt with reed worker will send to PCP nurse team to follow up with Pt. Protocol Used: Itching - [...] documented as of this encounter Care Teams Wood Boat Builder Supervisor Relationship Specialty Start Date End Date Brooklyn Jalloh MD [address] [place] [address] PCP - General Family Medicine 07/17/21 documented as of this encounter
--- OUTSIDE RECORDS SUMMARY | 2025-11-10 11:44 | XMS_ITS | Encounter Summary ---
Author Organization [employer] Address 75 [facility] 7t [place] [address] Care Team Providers Care Well Puller Head Name Role Phone Brooklyn Jalloh MD Primary Care Provider [phone] Reason for Visit * Reason Onset Date Comments Durable Medical Equipment 02/07/2023 Encounter Details Date Type Department Care Team (Late st Contact Info) Description 02/07/2023 Telephone [facility] MEDICINE [address] [place] [address] Brooklyn Jalloh MD [address] [place] [address] Durable Medical Equipment Social History Tobacco Use [...] status on walker please contact pt at [phone]. documented in this encounter Plan of Treatment Not on file documented as of this encounter Visit Diagnoses Not on filedocumented in this encounter Additional Health Concerns Assessment Noted Time PHQ-9 Depression Total Score: 6 02/05/20 23 11:27 AM EDT documented as of this encounter Care Teams Well Puller Head Relationship Specialty Start Date End Date Brooklyn Jalloh MD [address] [place] [address] PCP - General Family Medicine 07/17/21 documented as of this encounter
--- OUTSIDE RECORDS SUMMARY | 2025-11-10 11:44 | XMS_ITS | Encounter Summary ---
Author Organization [employer] Address 75 [facility] 7t [place] [address] Care Team Providers Care Hand Trimmer Name Role Phone Brooklyn Jalloh MD Primary Care Provider [phone] Reason for Visit * Reason Onset Date Comments Medication Question 08/20/2024 Results 08/20/2024 Encounter Details Date Type Department Care Team ([facility] st Contact Info) Description 08/20/2024 Telephone [facility] MEDICINE [address] [place] [address] Brooklyn Jalloh MD [address] [place], [place] [phone] Medication Question; Results Social History Tobacco Use [...] 2:40 PM EDT TC placed to pt [phone] via [employer] in regards to below message. RN informed [...] - 08/20/2024 3:47 PM EDT Noted. Per [employer], shoulder Xray performed on 08/11/24 however interpretation [...] BW. Pt verbalized understanding. Pt also requesting xyfrdjr-ekdnxhkxmddra-xauzzooy medication be Rx'd again for her migraines. [...] results: Labs Date when done: 08/18/24 Facility: [facility] Labs Pt is also requesting Eletriptan medication for migraines but editorial writer did not see medication on med list. Please contact pt at [phone]. (Slovak Speaker) documented in this encounter Plan of Treatment Not on file documented as of this encounter Visit Diagnoses Not on filedocumented in this encounter Additional Health Concerns Assessment Noted Time PHQ-9 Depression Total Score: 5 03/16/20 24 11:45 AM EDT documented as of this encounter Care Teams Hand Trimmer Relationship Specialty Start Date End Date Brooklyn Jalloh MD [address] [place] [address] PCP - General Family Medicine 07/17/21 documented as of this encounter
--- OUTSIDE RECORDS SUMMARY | 2025-11-10 11:44 | XMS_ITS | Encounter Summary ---
Author Organization [employer] Address 75 [facility] 7t [place] [address] Care Team Providers Care Panama Hat Smearer Name Role Phone Brooklyn Jalloh MD Primary Care Provider [phone] Encounter Details Date Type Department Care Team (Late st Contact Info) Description 02/15/2023 Orders Only [facility] MEDICINE [address] [place] [address] Brooklyn Jalloh MD [address] [place] [address] Ingrown toenail (Primary Dx) Social History Tobacco [...] as of this encounter Plan of Treatment Not on file documented as of this encounter Visit Diagnoses Diagnosis Ingrown toenail- Primary Ingrowing nail documented in this encounter Additional Health Concerns Assessment Noted Time PHQ-9 Depression Total Score: 6 02/05/20 23 11:27 AM EDT documented as of this encounter Care Teams Panama Hat Smearer Relationship Specialty Start Date End Date Brooklyn Jalloh MD [address] [place] [address] PCP - General Family Medicine 07/17/21 documented as of this encounter
--- OUTSIDE RECORDS SUMMARY | 2025-11-10 11:44 | XMS_ITS | Encounter Summary ---
Author Organization [employer] Address 75 [facility] 7t [place] [address] Care Team Providers Care Deburr Operator Name Role Phone Brooklyn Jalloh MD Primary Care Provider [phone] Reason for Visit * Reason Onset Date Comments Referral 08/05/2024 Encounter Details Date Type Department Care Team ([facility] st Contact Info) Description 08/05/2024 Telephone [facility]INE [address] [place], [place] [phone] Brooklyn Jalloh MD 230 [place] [address] Referral Social History Tobacco Use Types Packs/Day [...] of the breast to be sent to [facility] Address: [address] [place] [address] Fax- [phone] documented in this encounter Plan of Treatment Not on file documented as of this encounter Visit Diagnoses Not on filedocumented in this encounter Additional Health Concerns Assessment Noted Time PHQ-9 Depression Total Score: 5 03/16/20 24 11:45 AM EDT documented as of this encounter Care Teams Deburr Operator Relationship Specialty Start Date End Date Brooklyn Jalloh MD [address] [place] [address] PCP - General Family Medicine 07/17/21 documented as of this encounter
--- OUTSIDE RECORDS SUMMARY | 2025-11-10 11:44 | XMS_ITS | Encounter Summary ---
Author Organization [employer] Address 75 [facility] 7t [place] [address] Care Team Providers Care Choker Setter Name Role Phone Brooklyn Jalloh MD Primary Care Provider [phone] Reason for Visit * Reason Onset Date Comments Med Refill 02/04/2023 Encounter Details Date Type Department Care Team (Late st Contact Info) Description 02/04/2023 Telephone [facility] 230 [place] [address] Brooklyn Jalloh MD [address] [place] [address] Med Refill Social History Tobacco Use Types [...] 3:33 PM EDT Medications were sent to [facility] today 02/04/23. * Telephone Encounter [...] documented as of this encounter Care Teams Choker Setter Relationship Specialty Start Date End Date Brooklyn Jalloh MD [address] [place] [address] PCP - General Family Medicine 07/17/21 documented as of this encounter
--- OUTSIDE RECORDS SUMMARY | 2025-11-10 11:45 | XMS_ITS | Encounter Summary ---
Author Organization [employer] Address 75 [facility] 7t [place] [address] Care Team Providers Care Cable Tool Operator Name Role Phone Brooklyn Jalloh MD Primary Care Provider [phone] Encounter Details Date Type Department Care Team (Latest Contact Info) Description 05/12/2019 Abstract [facility] CONVERSIONS Dental, Provider, DDS Social [...] on filedocumented in this encounter Care Teams Cable Tool Operator Relationship Specialty Start Date End Date Brooklyn Jalloh MD [address] [place] [address] PCP - General Family Medicine 07/17/21 documented as of this encounter
--- OUTSIDE RECORDS SUMMARY | 2025-11-10 11:45 | XMS_ITS | Encounter Summary ---
Author Organization [employer] Address 75 [facility] 7t [place] [address] Care Team Providers Care Insole Reinforcer Name Role Phone Brooklyn Jalloh MD Primary Care Provider [phone] Encounter Details Date Type Department Care Team ([facility] st Contact Info) Description 05/21/2025 Telephone [facility] MEDICINE [address] [place], [place] [phone] Brooklyn Jalloh MD [address] [place] [address] Social History Tobacco Use Types Packs/Day Years [...] documented as of this encounter Care Teams Insole Reinforcer Relationship Specialty Start Date End Date Brooklyn Jalloh MD [address] [place] [address] PCP - General Family Medicine 07/17/21 documented as of this encounter
--- OUTSIDE RECORDS SUMMARY | 2025-11-10 11:45 | XMS_ITS | Encounter Summary ---
Author Organization [employer] Address 75 [facility] 7t [place] [address] Care Team Providers Care Gut Sorter Name Role Phone Brooklyn Jalloh MD Primary Care Provider [phone] Reason for Visit * Reason Comments Med Refill Encounter Details Date Type Department Care Team (Late st Contact Info) Description 07/29/2023 Refill [facility] [address] [place], [place] [phone] Brooklyn Jalloh MD [address] [place], [place] [phone] Social History Tobacco Use Types Packs/Day Years [...] documented as of this encounter Care Teams Gut Sorter Relationship Specialty Start Date End Date Brooklyn Jalloh MD [address] [place], [place] [phone] PCP - General Family Medicine 07/17/21 documented as of this encounter
--- OUTSIDE RECORDS SUMMARY | 2025-11-10 11:45 | XMS_ITS | Encounter Summary ---
Author Organization [employer] Address 75 [facility] 7t [place] [address] Care Team Providers Care Pump Assembler Name Role Phone Brooklyn Jalloh MD Primary Care Provider [phone] Reason for Visit * Reason Onset Date Comments Medication Question 11/19/2024 Encounter Details Date Type Department Care Team ([facility] st Contact Info) Description 11/19/2024 Telephone [facility] MEDICINE [address] [place] [address] Brooklyn Jalloh MD [address] [place] [address] Medication Question Social History Tobacco Use Types [...] documented as of this encounter Care Teams Pump Assembler Relationship Specialty Start Date End Date Brooklyn Jalloh MD [address] [place] [address] PCP - General Family Medicine 07/17/21 documented as of this encounter
--- OUTSIDE RECORDS SUMMARY | 2025-11-10 11:45 | XMS_ITS | Encounter Summary ---
Author Organization [employer] Address 75 [facility] 7t [place] [address] Care Team Providers Care Procurement Professional Name Role Phone Brooklyn Jalloh MD Primary Care Provider [phone] Reason for Visit * Reason Comments Med Refill Encounter Details Date Type Department Care Team ([facility] st Contact Info) Description 05/18/2025 Refill [facility] MEDICINE [address] [place] [address] Brooklyn Jalloh MD [address] [place] [address] Social History Tobacco Use Types Packs/Day Years [...] documented as of this encounter Care Teams Procurement Professional Relationship Specialty Start Date End Date Brooklyn Jalloh MD [address] [place] [address] PCP - General Family Medicine 07/17/21 documented as of this encounter
--- OUTSIDE RECORDS SUMMARY | 2025-11-10 11:45 | XMS_ITS | Encounter Summary ---
Author Organization [employer] Address 75 [facility] 7t [place] [address] Care Team Providers Care Support Technician Name Role Phone Brooklyn Jalloh MD Primary Care Provider [phone] Reason for Visit * Reason Onset Date Comments Referral 05/10/2023 Encounter Details Date Type Department Care Team ([facility] st Contact Info) Description 05/10/2023 Telephone [facility] MEDICINE [address] [place], [place] [phone] Brooklyn Jalloh MD [address] [place] [address] Referral Social History Tobacco Use Types Packs/Day [...] to her toenails. Please contact pt at [phone] Uzbek Speaker documented in this encounter Plan of Treatment Not on file documented as of this encounter Visit Diagnoses Not on filedocumented in this encounter Additional Health Concerns Assessment Noted Time PHQ-9 Depression Total Score: 6 02/05/20 23 11:27 AM EDT documented as of this encounter Care Teams Support Technician Relationship Specialty Start Date End Date Brooklyn Jalloh MD [address] [place] [address] PCP - General Family Medicine 07/17/21 documented as of this encounter
--- OUTSIDE RECORDS SUMMARY | 2025-11-10 11:45 | XMS_ITS | Encounter Summary ---
Author Organization [employer] Address [address] [facility] [address] 7[address] [place] [address] Care Team Providers Care Press Setter Name Role Phone Brooklyn Jalloh MD Primary Care Provider [phone] Encounter Details Date Type Department Care Team (Late st Contact Info) Description 08/25/2024 Orders Only [facility] MEDICINE [address] [place] [address] Provider, MD Dipak Social History Tobacco Use [...] on file documented as of this encounter Procedures Procedure [...] as of this encounter Care Teams Press Setter Relationship Specialty Start Date End Date Brooklyn Jalloh MD [address] [place] [address] PCP - General Family Medicine 07/17/21 documented as of this encounter
--- OUTSIDE RECORDS SUMMARY | 2025-11-10 11:45 | XMS_ITS | Encounter Summary ---
Author Organization [employer] Address 75 [facility] 7t h Floor [place] [id number] Care Team Providers Care Brand Recorder Name Role Phone Brooklyn Jalloh MD Primary Care Provider [phone] Reason for Visit * Reason Onset Date Comments referral 11/29/2023 Encounter Details Date Type Department Care Team ([facility] st Contact Info) Description 11/29/2023 Telephone [facility] MEDICINE 230 [place], [place] [phone] Brooklyn Jalloh MD [address] [place] [address] referral Social History Tobacco Use Types Packs/Day [...] from pt requesting a Referral for [facility] Gastrology with Dr. Aldrich @ [address] [place] [phone] to be further Evaluated for her Diagnoses @ the [facility] of gastroenteritis. Please contact pt @ [phone] documented in this encounter Plan of Treatment Not on file documented as of this encounter Visit Diagnoses Not on filedocumented in this encounter Additional Health Concerns Assessment Noted Time PHQ-9 Depression Total Score: 6 02/05/20 23 11:27 AM EDT documented as of this encounter Care Teams Brand Recorder Relationship Specialty Start Date End Date Brooklyn Jalloh MD [address] [place] [address] PCP - General Family Medicine 07/17/21 documented as of this encounter
--- OUTSIDE RECORDS SUMMARY | 2025-11-10 11:45 | XMS_ITS | Encounter Summary ---
Author Organization [employer] Address [address] [facility] [address] 7t [place] [address] Care Team Providers Care Business Enterprise Officer Name Role Phone Brooklyn Jalloh MD Primary Care Provider [phone] Encounter Details Date Type Department Care Team (Late st Contact Info) Description 08/26/2024 Orders Only [facility] MEDICINE [address] [place] [address] Brooklyn Jalloh MD [address] [place] [address] Elevated alkaline phosphatase level (Primary Dx) Social [...] 11:49 AM EDT) Mitochondrial Antibodies NEGATIVE NEGATIVE [facility] Comment:THIS TEST WAS PERFOR MED AT:[facility] [place] [id number] GRIGGS MD Mitochondrial Ab Titer TNP [facility] Blood Venous blood specimen / Unknown 04/02/2025 11:49 AM EDT 04/02/2025 1:17 PM EDT us Brooklyn Jalloh MD LAB BLOOD ORDERABLES Final Res ult [facility] [address] [place] [address] [phone] documented in this encounter Visit Diagnoses Diagnosis Elevated alkaline phosphatase level- Primary documented in this encounter Additional Health Concerns Assessment Noted Time PHQ-9 Depression Total Score: 5 03/16/20 24 11:45 AM EDT documented as of this encounter Care Teams Business Enterprise Officer Relationship Specialty Start Date End Date Brooklyn Jalloh MD [address] [place] [address] PCP - General Family Medicine 07/17/21 documented as of this encounter
--- OUTSIDE RECORDS SUMMARY | 2025-11-10 11:45 | XMS_ITS | Clinical Summary ---
Author Organization [employer] Address [address] [place] [address] Care Team Providers Care Drilling Inspector Name Role Phone Brooklyn Jalloh MD [...] by mouth in the morning. 023 Active triamcinolone (Kenalog) 0.1 % cream MIX WITH cerave AND APPLY A THIN LAYER TO AFFECTED AREA(S) TWICE DAILY DIRECTED 80 g 3 024 Active Respiratory Therapy Supplies (Nebulizer/Tubing /Mouthpiece) kit To be used with Nebulizer 1 kit 024 Active sucralfate (Carafate) 1 g tablet DISSOLVE 1 TABLET IN CAPFUL OF WATER & SWALLOW TWICE DAILY 024 Active atorvastatin (Lipitor) 40 MG tabletIndications :Hyperlipidemia, unspecified hyperlipidemia type Take 1 tablet (40 mg) by mouth Once per day. 90 tablet 3 024 Active cholecalciferol (Vitamin D-3) 25 MCG tabletIndications :Vitamin D deficiency TAKE 1 TABLET BY MOUTH EVERY DAY 90 tablet 3 025 Active glucose blood (FREESTYLE LITE) test strip 1 each by Other route Once per day. 100 each 6 11/08/20 25 4:42 PM EST 025 2026 Active TRUEplus Lancets 33G misc Apply 1 each topically Once per day. 100 each 6 Active gabapentin (Neurontin) 100 MG capsule TAKE [...] NEEDED FOR BACK PAIN 90 capsule 3 10/29/20 25 5:26 PM EST 025 Active HealthyLax 17 g packetIndications :Constipation, unspecified constipation type DISSOLVE 1 PACKET IN 8 OUNCES OF WATER, JUICE, COFFEE OR TEA AND DRINK BY MOUTH EVERY DAY NEEDED FOR CONSTIPATION 30 packet 6 025 Active simethicone (Mylicon) 80 MG chewable tabletIndications :Biliary colic CHEW and SWALLOW 1 TABLET BY MOUTH EVERY 8 HOURS NEEDED FOR GAS 90 tablet 3 10/29/20 25 5:26 PM EST 025 Active fluticasone (Flonase) 50 MCG/ACT nasal spray INSTILL 2 SPRAYS IN EACH NOSTRIL ONCE DAILY IN THE MORNING 16 g 3 025 Active lidocaine (Lidoderm) 5 % patchIndications: Acute left-sided low back pain, unspecified whether sciatica present Apply 1 patch topically Once per day. Remove & discard patch within 12 hours or as directed by MD. 30 patch 1 025 Active docusate sodium (Colace) 100 MG [...] SAME TIME RINSE MOUTH AFTER USING Active ibuprofen 800 MG tablet Take 1 [...] CRUSH, DISSOLVE OR CHEW 90 tablet 3 11/08/20 25 4:42 PM EST Active baclofen (Lioresal) 10 MG tablet Take 1 tablet (10 mg) by mouth 3 times daily. 90 tablet 2 10/28/20 25 4:25 PM EST 2025 Active albuterol 108 (90 Base) MCG/ACT inhaler Inhale 2 puffs every 4 (four) hours if needed for wheezing or shortness of breath. 18 g 2 10/19/20 25 3:51 PM EST Active Respiratory Therapy Supplies (Nebulizer Mask Adult) miscIndications:M oderate persistent asthma, unspecified whether complicated 1 each if needed each day (Use as directed) for up to 1 day. 1 each 025 2024 Active famotidine (Pepcid) 20 MG tabletIndications :Bloating Take 1 tablet (20 mg) by mouth 2 times daily. 60 tablet 11 025 2025 Active Respiratory Therapy Supplies (Nebulizer/Tubing /Mouthpiece) kit Use for asthma Q4-6hrs if needed 1 kit Active aspirin-acetamino phen-caffeine (Pain Reliever Plus) 250-250-65 MG tabletIndications :Other migraine without status migrainosus, not intractable Take 1 tablet by mouth every 12 (twelve) hours if needed for headaches. 30 tablet 3 10/29/20 25 5:26 PM EST Active Diclofenac Sodium 1 % gel APPLY 2 GRAMS TOPICALLY TO AFFECTED AREA(S) UP TO FOUR TIMES DAILY 100 g 1 Active Respiratory Therapy Supplies (Nebulizer Mask Adult/Tubing) miscIndications:M oderate persistent asthma, unspecified whether complicated 1 each before breakfast, before lunch, before evening meal, and at bedtime. 1 each Active albuterol (2.5 MG/3ML) 0.083% nebulizer solutionIndicatio ns:Cough in adult patient INHALE 1 AMPULE USING A NEBULIZER EVERY 4 HOURS NEEDED FOR WHEEZING OR SHORTNESS OF BREATH 90 mL 11 Active ketoconazole (NIZOral) 2 % cream 023 2024 Discontinued(T herapy completed) ipratropium (Atrovent) 0.06 % nasal spray PLEASE SEE ATTACHED FOR DETAILED DIRECTIONS 024 2024 Discontinued(T herapy completed) metFORMIN, OSM, (Fortamet) 500 MG 24 hr tablet Take 1 tablet (500 mg) by mouth with evening meal. Do not crush, chew, or split. 90 tablet 3 024 2024 Discontinued(T herapy completed) lidocaine (Lidoderm) 5 % patchIndications: Calcific tendonitis of right shoulder Apply 1 patch topically Once per day. Remove & discard patch within 12 hours or as directed by MD. 30 patch 1 024 2024 Discontinued(T herapy completed) Ketotifen Fumarate 0.035 % solution Administer 1 drop into affected eye(s) in the morning and 1 drop in the evening. 10 mL 2 025 2024 Discontinued(T herapy completed) albuterol (2.5 MG/3ML) 0.083% nebulizer solutionIndicatio ns:Cough in adult patient INHALE 1 AMPULE USING A NEBULIZER EVERY 4 HOURS NEEDED FOR WHEEZING OR SHORTNESS OF BREATH 90 mL 11 025 2024 Discontinued levoFLOXacin (Levaquin) 750 MG tablet Take 1 tablet by mouth Once per day. 09/022024 Discontinued(T herapy completed) aspirin-acetamino phen-caffeine (Pain Reliever Plus) 250-250-65 MG tabletIndications :Other migraine without status migrainosus, not intractable Take 1 tablet by mouth every 6 (six) hours if needed for headaches. 30 tablet 3 025 2024 Discontinued predniSONE (Deltasone) 10 MG tablet Take 6 tabs PO daily x 2 days then 5 tabs x 2 days then 4 tabs x 2 days then 3 tabs x 2 days then 2 tabs x 2 days then 1 tab x 2 days then 1/2 tab x 2 days 43 tablet 2024 Discontinued(T herapy completed) amoxicillin-clavu lanate (Augmentin) 875-125 MG tablet take 1 tablet by mouth twice daily until finished 2024 Discontinued(T herapy completed) Probiotic, Lactobacillus, capsuleIndication s:Bloating Take 1 capsule by mouth Once per day. 30 capsule 3 2024 Diclofenac Sodium 1 % gel APPLY 2 GRAMS TO AFFECTED AREA(S) UP TO FOUR TIMES DAILY 100 g 1 10/28/20 4:25 PM EST 2024 Discontinued clotrimazole (Lotrimin) 1 % creamIndications: Vaginal candidiasis Apply topically 2 times daily for 28 days. 30 g 5 025 2024 Active Problems Problem Noted Date Diagnosed Date fall10/01/2025 Assessment & Plan (10/01/2025 1:53 PM EST): Orders: Referral to Orthopaedic Surgery; Future XR Knee 4+ Views Right; Future XR Knee 4+ Views Left; Future Acute idiopathic pericarditis 08/16/2025 Assessment & Plan (10/29/2025 1:03 PM EST): Resolved 10/05/25 echo Assessment & Plan (08/16/2025 9:30 AM EDT): Diagnosis in ER 08/04/25 via bedside ultrasound - Follow-up with logistics director on August 31, 2025 Moderate persistent asthma 05/21/2025 Assessment & Plan [...] testing of pharyngeal area and follow-up results Precordial pain 11/19/2024 Assessment & Plan (11/19/2024 [...] 20mg daily Elevated alkaline phosphatase level 03/16/2024 Overview (10/29/2025): Primary biliary cholangitis?? Assessment & Plan (10/29/2025 1:07 PM EST): GGT shows elevation meaning Alk Phos is of liver origin Will continue to monitor liver enzymes every 3 months control blood sugars closely infectious etiologies ruled out Assessment & Plan (08/12/2024 11:38 AM EDT): [...] (08/12/2024 11:39 AM EDT): Continue followup with [facility] ortho for viscosupplementation Assessment & Plan (02/13/2023 [...] obesity? No Prediabetes 11/20/2017 Assessment & Plan (10/29/2025 1:04 PM EST): Resolved, A1C 5.9 today, hold Metformin, complaining of symptomatic hypoglycemia with glucoses of 70-80 Assessment & Plan (02/04/2025 11:21 AM EDT): [...] EDT): Diet controlled Will start going to [facility] with her daughter as well Anxiety disorder [...] Problem Noted Date Diagnosed Date Resolved Date Vaginal discharge 09/20/2025 10/29/2025 Vaginal candidiasis 09/20/2025 10/29/20 25 Acute left-sided low back pain 07/13/2025 10/29/2025 Assessment & Plan (07/13/2025 2:52 PM EDT): Apply heat on affected area Continue to take pain medications as needed as prescribed I added today lidocaine patch to apply 1 daily as needed I offered PT referral patient declines at this moment Sore throat 05/21/2025 07/23/2025 Assessment & Plan (05/21/2025 5:16 PM EDT): Pt primary concerns is throat culture, requesting repeat, g/c chl sent COPD with acute exacerbation ([facility]) 05/17/2025 10/29/2025 Assessment & Plan (06/26/2025 11:15 AM EDT): [...] after application Screening examination for STI 05/17/2025 10/29/2025 Assessment & Plan (05/17/2025 4:18 PM EDT): [...] clinic if she is interested on PrEP. Cough in adult patient 10/28/202402/04 COVID-19 10/28/2024 [...] Encounters Date Type Department Care Team Description 11/08/2025 Refill [facility] [address] [place] [address] [phone] Brooklyn Jalloh MD Moderate persistent asthma, uncomplicated; Cough in adult patient 11/08/2025 Refill [facility] [address] [place] [address] [phone] Brooklyn Jalloh MD Moderate persistent asthma, unspecified whether complicated 11/03/2025 Refill [facility] [address] [place] [address] [phone] Brooklyn Jalloh MD 11/02/2025 Refill [facility] [address] [place] [address] [phone] Brooklyn Jalloh MD 10/29/2025 11:15 AM EST Office Visit [facility] [address] [place] [address] [phone] Brooklyn Jalloh MD Prediabetes (Primary Dx); Precordial pain; Primary hypertension; Acute idiopathic pericarditis; Depression, recurrent (CMS/HCC); Generalized anxiety disorder; Elevated alkaline phosphatase level; Encounter for screening mammogram for malignant neoplasm of breast; Bilateral hip pain; Left wrist pain 10/29/2025 Travel 10/28/2025 Telephone [facility] [address] [place] [address] [phone] Brooklyn Jalloh MD chart prep 10/25/2025 Refill [facility] [address] [place] [address] [phone] Georgette Tellez DO 10/16/2025 Refill [facility] [address] [place] [address] [phone] Brooklyn Jalloh MD Other migraine without status migrainosus, not intractable 10/14/2025 Patient Outreach [facility] [address] [place] [address] [phone] Brooklyn Jalloh MD Pre-visit Planning ([facility] screening completed on 01/26/2025) 10/12/2025 Telephone [facility] [address] [place] [address] [phone] Brooklyn Jalloh MD Prior Authorization (PA: Lidocaine 5% Patch) 10/12/2025 Telephone [facility] [address] [place] [address] [phone] Brooklyn Jalloh MD Prior Authorization 10/07/2025 Refill [facility] [address] [place] [address] [phone] Brooklyn Jalloh MD 10/01/2025 10:40 AM EST Office Visit [facility] [address] [place] [address] [phone] Shayy Ashraf NP Fall, initial encounter (Primary Dx); Primary osteoarthritis of both knees 10/01/2025 Travel 09/24/2025 Orders Only [facility] [address] [place] [address] [phone] Shayy Ashraf NP Vaginal candidiasis (Primary Dx) 09/24/2025 Refill [facility] [address] [place] [address] [phone] Brooklyn Jalloh MD Cough in adult patient 09/22/2025 Telephone [facility] [address] [place] [address] [phone] Trenton Fernandez CNP 09/21/2025 Telephone [facility] [address] [place] [address] [phone] Brooklyn Jalloh MD Medication Question 09/20/2025 9:40 AM EDT Office Visit [facility] [address] [place] [address] [phone] Genna Irizarry FNP Vaginal discharge (Primary Dx); Vaginal itching; Vaginal candidiasis 09/20/2025 Travel 09/13/2025 Refill [facility] [address] [place] [address] [phone] Brooklyn Jalloh MD 09/11/2025 11:40 AM EDT Office Visit [facility] [address] [place] [address] [phone] Trenton Fernandez CNP Bloating (Primary Dx); Intestinal dysbiosis; Gastroesophageal reflux disease without esophagitis 09/11/2025 Travel 09/06/2025 10:30 AM EDT Office Visit [facility] [address] [place] [phone] Abdirahman, Mel, OD Redness or discharge of eye (Primary Dx) 09/06/2025 Travel 09/03/2025 Refill [facility] [address] [place] [address] [phone] Brooklyn Jalloh MD Moderate persistent asthma, unspecified whether complicated 09/02/2025 10:20 AM EDT Office Visit [facility] [address] [place] [address] [phone] Georgette Tellez DO Moderate persistent asthma with acute exacerbation (Primary Dx) 09/02/2025 Travel 08/24/2025 Orders Only [facility] [address] [place] [address] [phone] Brooklyn Jalloh MD 08/24/2025 Refill [facility] [address] [place] [address] [phone] Brooklyn Jalloh MD Other migraine without status migrainosus, not intractable 08/23/2025 Refill [facility] [address] [place] [address] [phone] Brooklyn Jalloh MD 08/20/2025 Telephone [facility] [address] [place] [address] [phone] Brooklyn Jalloh MD Med Refill 08/20/2025 Refill [facility] [address] [place] [address] [phone] Brooklyn Jalloh MD 08/18/2025 Telephone [facility] [address] [place] [address] [phone] Brooklyn Jalloh MD Medication Question 08/18/2025 Refill [facility] [address] [place] [address] [phone] Brooklyn Jalloh MD Cervical spondylosis; Degeneration of lumbar intervertebral disc 08/15/2025 Refill [facility] [address] [place] [address] [phone] Brooklyn Jalloh MD 08/13/2025 11:15 AM EDT Office Visit [facility] [address] [place] [address] [phone] Brooklyn Jalloh MD Moderate persistent asthma without complication (Primary Dx); Acute idiopathic pericarditis; Esophageal dysphagia; Primary hypertension; Gastroesophageal reflux disease without esophagitis; Depression, recurrent (CMS/HCC); Generalized anxiety disorder; Fibromyalgia; Calcific tendonitis of right shoulder; Degeneration of intervertebral disc of lumbar region, unspecified whether pain present 08/13/2025 Travel 08/12/2025 Telephone [facility] [address] [place] [address] [phone] Brooklyn Jalloh MD Chart Prep from Last 3 Months Immunizations Immunization Administration [...] Sign Reading Time Taken Comments Blood Pressure 120/72 10/29/2025 11:41 AM EST Pulse 68 10/29/2025 11:41 AM EST Temperature 36.1 C (97 F) 10/29/2025 11:41 AM EST Respiratory Rate 16 10/29/2025 11:41 AM EST Oxygen Saturation 97% 10/01/2025 10:42 AM EST Inhaled Oxygen Concentration - - Weight 89.2 kg (196 lb 9.6 oz) 10/29/2025 11:41 AM EST Height 164.5 cm (5' 4.76 ) 10/29/2025 11:[address] Body Mass Index 32.95 10/29/2025 11:41 AM EST Plan of Treatment Health Maintenance Due Date Last Done Comments CT Colonography 1970 FIT DNA/Cologuard 1968 FIT 1970 FOBT 1970 Sigmoidoscopy 1970 Pneumococcal Vaccine: 50+ Years (1 of 2 - PCV) 02/25/1987 RSV Patients and Patients Aged 60 years or older (1 - Risk 50-74 years 1-dose series) 02/25/2018 COVID-19 Vaccine ( season) 2025 11/07/2021, 03/29/2021, 03/01/2021 Influenza Vaccine (#1) 2025 , 08/23/2023, 09/17/2022, Additional history exists Mammogram 08/18/2025 08/18/2024, 07/27, 08/08/2022, Additional history exists Dental Oral Exam 10/16/2025 04/14/2025, 08/24/2024 Dental Prophylaxis 10/16/2025 04/14/2025, 0 08/24/2024, 10/01/2023, Additional history exists SDOH Screening 01/26/2026 01/26/2025 Alcohol/Substance Use Screening 02/04/2026 02/04/2025 Depression Monitoring 02/10/2026 08/13/2025, 025 Dental X-Ray: Bitewings 05/08/2026 05/07/20 25, 08/24/2024, 10/01/2023 Disability Screening 07/23/2026 07/23/2025 Diabetes: Hemoglobin A1C 10/29/2026 025, 05/07/2025, 02/02/2025, Additional history exists Tobacco Screening 10/29/2026 10/29/2025 Dental X-Ray: Full Mouth 08/25/2027 08/24/2024, 04/26 Lipid Panel 10/11/2027 10/11/2022, 01/25, 08/09/2020 DTaP/Tdap/Td Vaccines (2 - Td or Tdap) 12/23/2027 12/23/2017 Colonoscopy 05/13/2028 05/13/2023, 04/25, 03/17/2018 Colorectal Cancer Screening 05/13/2028 Cervical Cancer Screening 03/30/2030 HPV/Cotest 03/30/2030 03/30/2025, 04/23/2018 Pap Smear 03/30/2030 03/30/2025 Hepatitis B Vaccines Completed 12/18/2018, 02/17/2018, 12/23/2017 [...] Name Priority Date/Time Associated Diagnosis Comments POCT GLYCATED HEMOGLOBIN, TOTAL Routine 10/29/2025 12:27 PM EST Prediabetes POCT GLUCOSE Routine 10/29/2025 12:26 PM EST Prediabetes XR KNEE 4+ VIEWS LEFT Routine 10/01/2025 [...] EDT Moderate persistent asthma with acute exacerbation BITEWING - SINGLE RADIOGRAPHIC IMAGE Routine 05/07/2025 [...] Relevant to Health Maintenance Results * (ABNORMAL) POCT Hgb A1c (10/29/2025 12:27 PM EST) Hemoglobin A1C 5.9(A) 4.0 - 5.7 % QC Media Lot # [id number] Lot# Expiration Date [id number] Blood 10/29/2025 12:2 7 PM EST Brooklyn Jalloh MD POINT OF CARE TEST ENTER/EDIT ORDERABLES Final Result * POCT Glucose (10/29/2025 12:26 PM EST) Pathologist [facility] Glucose Blood, POC 77 60 - 200 mg/dL QC Media Lot # [id number] Lot# Expiration Date Blood Capillary blood specimen / Unknown 10/29/2025 12:26 PM EST Brooklyn Jalloh MD POINT OF CARE TEST ENTER/EDIT ORDERABLES Final Result * XR Knee 4+ Views Left (10/01/2025 2:28 PM EST) Anatomical Region Laterality Modality Lower Extremities, Knee Left Radiogra phic Imaging 10/01/2025 2:28 PM EST Narrative 10/01/2025 2:44 PM EST [facility] [address] [place] [address] XRay Report Signed Patient: Machelle Wooten MR#: [id number] : 1970 Acct:[id number] Age/Sex: 55 / F ADM Date: 10/01/25 Loc: HO.HHCX Attending Dr: Brooklyn Jalloh MD Ordering Physician: Shayy Ashraf NP Date of Service: 10/01/25 Procedure(s): XR knee LT 4V Accession Number(s): [id number] cc: Shayy Ashraf FACTORY REPRESENTATIVE; Brooklyn Jalloh Reason for Exam: known OA [...] 10/01/25 1441 DD/ 1428 TD/TT: 10/01/25 1430 Production Underwriter: MARIBELL Procedure Note Donotuseinterpreter, Image - 10/01/[address] [address] XRay Report Signed Patient: Machelle WootenMR#: [id number] : 1970Acct:[id number] Age/Sex: 55 / FADM Date: 10/01/25 Loc: HO.HHCX Attending Dr: Brooklyn Jalloh MD Ordering Physician: Shayy Ashraf NP Date of Service: 10/01/25 Procedure(s): XR knee LT 4V Accession Number(s): [id number] cc: Shayy Ashraf FACTORY REPRESENTATIVE; Brooklyn Jalloh Reason for Exam: known OA [...] 10/01/25 1441 DD/ 1428 TD/TT: 10/01/25 1430 Production Underwriter: MARIBELL Shayy Ashraf NP IMG XR PROCEDURES Final Result * XR Knee 4+ Views Right (10/01/2025 2:25 PM EST) Anatomical Region Laterality Modality Lower Extremities, Knee Right Radiogra phic Imaging 10/01/2025 2:25 PM EST Narrative 10/01/2025 2:44 PM EST [facility] [address] [place] [address] XRay Report Signed Patient: Machelle Wooten MR#: [id number] : 1970 Acct:[id number] Age/Sex: 55 / F ADM Date: 10/01/25 Loc: .HHCX Attending Dr: Brooklyn Jalloh MD Ordering Physician: Shayy Ashraf NP Date of Service: 10/01/25 Procedure(s): XR knee RT 4V Accession Number(s): [id number] cc: Shayy Ashraf NP; Brooklyn Jalloh Reason [...] OV> 10/01/25 1441 DD/ 24 TD/TT: 10/01/25 143 Production Underwriter: MARIBELL Procedure Note Donotdavidinterpreter, Image - 10/01/[address] [address] XRay Report Signed Patient: Machelle WootenMR#: [id number] : 1970Acct:[id number] Age/Sex: 55 / FADM Date: 10/01/25 Loc: HO.HHCX Attending Dr: Brooklyn Jalloh MD Ordering Physician: Shayy Ashraf NP Date of Service: 10/01/25 Procedure(s): XR knee RT 4V Accession Number(s): [id number] cc: Shayy Ashraf FACTORY REPRESENTATIVE; Brooklyn Jalloh Reason for Exam: known OA, [...] 10/01/2025 02:41 PM [facility] Dictated By: Remington Nguyen MD Signed By: <Electronically signed by Remington Nguyen MD in OV> 10/01/25 1441 DD/ 1425 TD/TT: 10/01/25 1430 Production Underwriter: MARIBELL us Shayy Ashraf FACTORY REPRESENTATIVE IMG XR PROCEDURES Final Result * POCT [...] (Urine, Random) 09/20/2025 9:43 AM EDT Genna Hyperfa[facility] POINT OF CARE TEST ENTER/EDIT ORDERABLES Final Result * Culture, Urine, Routine (09/20/2025 9:40 AM EDT) Urine Urine specimen obtained by clean catch procedure / Unknown 09/20/2025 9:40 AM EDT 09/20/2025 1:01 PM EDT Comment:UACC Narrative [facility] - 09/21/2025 12:34 PM EDT Urine Culture No growth. Specimen Source: Urine clean catch Genna [facility] LAB MICROBIOLOGY - GENERAL ORD ERABLES Final Result [facility] [address] [place] [phone] * (ABNORMAL) Bacterial Vaginosis (09/20/2025 9:39 AM EDT) TRICHOMONAS VAGINALIS DETECTION BY PCR NOT DETECTED Not Detect [facility] BACTERIAL VAGINOSIS DETECTION BY PCR NEGATIVE Negative [facility] Comment:The BV organism targ ets of [...] GROUP DETECTION BY PCR DETECTED(A) Not Detect [facility] Abhishek glab krusei PCR NOT DETECTED Not Detect [facility] Swab Vaginal structure / Unknown 09/20/2025 9:39 AM EDT 09/20/2025 1:01 PM EDT us Genna Irizarry [facility] MICROBIOLOGY - GENERAL ORD ERABLES Final Result [facility] [address] [place] [phone] * Chlamydia/N. Gonorrhoeae RNA, TMA, Vaginal (09/20/2025 9:39 AM EDT) CT PCR NOT DETECTED Not Detect. [facility] Comment:A not detected test result does [...] psychologicalconsequences. NG PCR NOT DETECTED Not Detect. [facility] Comment:A not detected test result does [...] 9:39 AM EDT 09/20/2025 1:01 PM EDT us Genna Irizarry [facility] MICROBIOLOGY - GENERAL ORD ERABLES Final Result Performing Organization Address City/State/[facility] Co de Phone Number [facility] [address] [place] [phone] * XR Chest 2 Views (09/02/2025 11:15 AM EDT) Anatomical Region Laterality Modality Chest Radiographic Zina ging 09/02/2025 11:1 5 AM EDT Narrative 09/02/2025 12:25 PM EDT [address] [address] XRay Report Signed Patient: Machelle Wooten MR#: [id number] : 1970 Acct:[id number] Age/Sex: 55 / F ADM Date: 09/02/25 Loc: HO.HHCX Attending Dr: Georgette Tellez DO Ordering Physician: Georgette Tellez DO Date of Service: 09/02/25 Procedure(s): XR chest 2V Accession Number(s): [id number] cc: Georgette Tellez DO Reason for Exam: [...] 09/02/25 1222 DD/ 1115 TD/TT: 09/02/25 1120 Production Underwriter: MARIBELL Procedure Note Donotuseinterpreter, Image - 09/02/[address] [address] XRay Report Signed Patient: Alice Wooten#: [id number] : 1970Acct:[id number] Age/Sex: 55 / FADM Date: 09/02/25 [facility]: Georgette Tellez DO Ordering Physician: Georgette Tellez DO Date of Service: 09/02/25 Procedure(s): XR chest 2V Accession Number(s): [id number] cc: Georgette Tellez DO Reason for Exam: [...] 09/02/25 1222 DD/ 1115 TD/TT: 09/02/25 1120 Production Underwriter: HB Georgette Tellez DO IMG XR PROCEDURES Final Resu lt * Hepatitis C Antibody with Reflex to HCV, RNA, Quantitative, Real-Time PCR (04/02/2025 11:49 AM EDT) Hepatitis C Antibody Nonreactive Nonreactive [facility] Comment:Antibodies to HCV no t detected; does not exclude early acuteHCV infection. Blood Venous blood specimen / Unknown 04/02/2025 11:49 AM EDT 04/02/2025 1:17 PM EDT Brooklyn Jalloh MD LAB BLOOD ORDERABLES Final Res ult Performing Organization Address [facility] Co de Phone Number [facility] [address] [place] [phone] * HIV-1/2 Antigen and Antibodies, Fourth Generation, with Reflexes (04/02/2025 11:49 AM EDT) Pathologist [facility] HIV AB/AG Nonreactive Nonreactive [facility] Comment:HIV-1 p24 Ag and/or HIV-1/HIV-2 Ab not detected.A test result that is nonreactive does not exclude thepossibility of exposure to or infection with HIV-1 and/orHIV-2. Nonreactive results in this assay for individualswith prior exposure to HIV-1 and/or HIV-2 may be due toantigen and antibody levels that are below the limit ofdetection of this assay.The [employer] HIV Ag/Ab Combo assay result andsupplemental assay results should be interpreted inconjunction with the patient's clinical presentation,history and other laboratory results. If the results areinconsistent with clinical evidence, additional testing issuggested to confirm the result. Blood Venous blood specimen / Unknown 04/02/2025 11:49 AM EDT 04/02/2025 1:17 PM EDT Brooklyn Jalloh MD LAB BLOOD ORDERABLES Final Res ult Performing Organization Address City/[facility]/ZIP Co de Phone Number [facility] [address] [place] [phone] * Pap Smear (03/30/2025 12:07 PM EDT) Swab 03/30/2025 12:0 7 PM EDT 03/31/2025 6:[address] EDT [facility] - 04/02/2025 12:35 PM EDT ----- ------- Name: Machelle Wooten Age/Sex: 55/F : 1970 Unit#: [id number] Attend Dr: KEILY FOREMAN CNM Re03/30/25 Status: DEP REF Location: HO.HHCLNP Disch: ----- ------- SPEC : [id number] RECD: 03/31/25 STATUS: ERNESTO HERNANDEZ NUM: [id number] KRYSTA: 03/30/25-12[address] [facility] [address]: KEILY FOREMAN CNM ENTERED: 03/31/25 SP TYPE: Pap Smr OT : ORDERED: Pap Smear Interpretation Satisfactory for evaluation. Negative for intraepithelial lesion or malignancy. No endocervical cells seen. HPV High Risk: Negative HPV Genotyping 16: Negative HPV Genotyping 18: Negative Clinical Information LMP:Unknown date Previous PAP test:2018 Material Received ThinPrep-Cervical ----- ------- Signed (signature on file) DrewYAMILETH Wiley (ASCP) 04/02/25 1235 ----- ------- END OF REPORT us Keily Foreman [facility] LAB CYTOLOGY ORDERABLES F inal Result [facility] [address] [place], [place] [phone] * HPV DNA, Low/High Risk (03/30/2025 12:00 AM EDT) HPV High Risk Negative Negative [facility] HPV Genotype 16 Negative Negative [facility] HPV Genotype 18 Negative Negative [facility] Comment:HPV testing performe d at [facility] (CLIA#[id number]), [address] [place] [address].Testing for HPV was performed using the [employer]system. The presence of HPV in the female [...] 03/31/2025 6:0 0 AM EDT us Keily Alice CNM LAB BLOOD ORDERABLES Julianne l Result [facility] [address] [place] [address] [phone] * BI US Breast Limited Right (08/18/2024) Anatomical Region Laterality Modality Breast Right Ultrasound us Lilian Zhang SIGNAL TIMER IMG US PROCEDURES Final Result * (ABNORMAL) [...] LDL-C. Mitch SS et al. ARACELI. 2013;310(19): 3732-7115 (http://education.Bolooka.com.com/faq/TER191) Non-HDL Cholesterol 117 <130 mg/dL (calc) CONVERTED [...] Most Recently Relevant to Health Maintenance Insurance [facility] < [facility] * Guarantor: Machelle Wooten Account Type Relation to Patient Date of Phone Billing Address Personal/Family Self [place], [place] * Guarantor: Machelle Wooten Account Type Relation to Patient Date of Phone Billing Address Personal/Family Self [place], [place] * Guarantor: Machelle Wooten Account Type Relation to Patient Date of Phone Billing Address Personal/Family Self [place], [place] Care Teams Drilling Inspector Relationship Specialty Start Date End Date Brooklyn Jalloh MD [address] [place] [phone] PCP - General Family Medicine 07/17/21
--- OUTSIDE RECORDS SUMMARY | 2025-11-10 11:45 | XMS_ITS | Encounter Summary ---
Author Organization [employer] Address [address] [facility] 7t [place] [address] Care Team Providers Care Insulation Cutter Name Role Phone Brooklyn Jalloh MD Primary Care Provider [phone] Encounter Details Date Type Department Care Team (Late st Contact Info) Description 05/11/2023 Orders Only [facility] [address] [place] [address] Brooklyn Jalloh MD [address] [place] [address] Onychomycosis (Primary Dx) Social History Tobacco Use [...] documented as of this encounter Care Teams Insulation Cutter Relationship Specialty Start Date End Date Brooklyn Jalloh MD [address] [place] [address] PCP - General Family Medicine 07/17/21 documented as of this encounter
--- OUTSIDE RECORDS SUMMARY | 2025-11-10 11:45 | XMS_ITS | Encounter Summary ---
Author Organization [employer] Address [address] [place] [address] 7t [place] [address] Care Team Providers Care Gaming Manager Name Role Phone Brooklyn Jalloh MD Primary Care Provider Reason for Referral * (Routine) - Closed Specialty Diagnoses / Procedures Referred By Tenzin t Referred To Contact Diagnoses Benign breast disease Procedures BI Mammogram Diagnostic same day Diagnostic same/ Day Right Brooklyn Jalloh MD [address] [place] [address] Phone: tel: fax: Referral ID Status Reason Start Date Expiration Date Visits Re quested Visits Authorized [id number] Closed 03/20/2023 09/16/2023 1 1 Encounter Details Date Type Department Care Team (Late st Contact Info) Description 03/20/2023 Orders Only [facility] [address] [place] [address] [phone] Brooklyn Jalloh MD [address] [place] [address] [phone] Benign breast disease (Primary Dx) Social History [...] as of this encounter Plan of Treatment Scheduled Orders Name Type Priority Associated Diagnoses [...] documented as of this encounter Care Teams Gaming Manager Relationship Specialty Start Date End Date Brooklyn Jalloh MD [address] [place] [address] PCP - General Family Medicine 07/17/21 documented as of this encounter
--- OUTSIDE RECORDS SUMMARY | 2025-11-10 11:45 | XMS_ITS | Encounter Summary ---
Author Organization [employer] Address [address] [facility] [address] 7t [place] [address] Care Team Providers Care Direct Care Professional Name Role Phone Brooklyn Jalloh MD Primary Care Provider [phone] Encounter Details Date Type Department Care Team (Late st Contact Info) Description 12/22/2023 Orders Only [facility] [address] [place], [place] [phone] Brooklyn Jalloh MD [address] [place], [place] [phone] Bronchitis (Primary Dx) Social History Tobacco Use [...] Blood Count 15.4(H) 4.8 - 10.8 X10*3/uL [facility] Red Blood Count 5.11 4.20 - 5.50 X10*6/uL [facility] Hemoglobin 13.7 12.0 - 16.0 g/dl [facility] Hematocrit 42.6 37.0 - 47.0 % [facility] Mean Corpuscular Volume 83.4 80.0 - 98.0 fL [facility] Mean Corpuscular Hemoglobin 26.8(L) 27.0 - 33.0 pg [facility] Mean Corpuscular HGB Conc 32.2 31.0 - 35.0 g/dl [facility] Red Cell Distribution Width 13.9 11.0 - 16.0 % [facility] Platelet Count 442(H) 160 - 400 X10*3/uL [facility] Mean Platelet Volume 10.1 9.4 - 12.3 fL [facility] Neutrophils Percent Auto 71.8 45 - 73 % [facility] Imm Gran Pct Auto 0.5(H) 0.0 - 0.4 % [facility] Lymphocytes Percent Auto 20.8 20 - 40 % [facility] Monocytes Percent Auto 6.7 2 - 11 % [facility] Eosinophils Percent Auto 0.1 0 - 4 % [facility] Basophils Percent Auto 0.1 0 - 2 % [facility] NRBC Pct Auto 0.0 0.0 - 0.2 /100WBC [facility] Neutrophils Absolute Auto 11.0(H) 2.0 - 8.3 x10*3/uL [facility] Imm Gran Abs Auto 0.08(H) 0.00 - 0.03 X10*3/uL [facility] Lymphocytes Absolute Auto 3.2 1.2 - 4.9 X10*3/uL [facility] Monocytes Absolute Auto 1.0 0.1 - 1.2 X10*3/uL [facility] Eosinophils Absolute Auto 0.0 0.0 - 0.4 X10*3/uL [facility] Basophils Absolute Auto 0.0 0.0 - 0.2 X10*3/uL [facility] NRBC Abs Auto 0.000 0.0 - 0.012 X10*3/uL [facility] Blood Venous blood specimen / Unknown 12/25/2023 12:28 PM EST 12/25/2023 1:09 PM EST us Brooklyn Jalloh MD LAB BLOOD ORDERABLES Final Res ult [facility] [address] [place] [phone] documented in this encounter Visit Diagnoses Diagnosis Bronchitis- Primary Bronchitis, not specified as acute or chronic documented in this encounter Additional Health Concerns Assessment Noted Time PHQ-9 Depression Total Score: 6 02/05/20 23 11:27 AM EDT documented as of this encounter Care Teams Direct Care Professional Relationship Specialty Start Date End Date Brooklyn Jalloh MD [address] [place] [address] PCP - General Family Medicine 07/17/21 documented as of this encounter
--- OUTSIDE RECORDS SUMMARY | 2025-11-10 11:45 | XMS_ITS | Data Portability ---
Author Organization [place] - [facility], Allergy Address [address] [address] Assessment Encounter Date Assessment Date Assessment LastModified [...] oil 0.01 % ear drops 2024 025 [facility], [address] [place], [place], [phone], 10/28/2025 16:25:44 fluocinol one acetonide oil 0.01 % ear drops 2024 025 [facility], [address] [place], [place], [phone], 05/05/2025 09:22:39 Patient TargetsNo targets recorded. Patient [...] Address Organization Details Recorded Time Bilateral tinnitus 28351142388 02 Active 2022 Tinnitus, bilateral ; Note: Date Diagnosed : 04/18/2023 4:24 PM (H93.13) Not Available [facility] 4 03:26:19 Sensorine ural hearing loss of bilateral ears 252288602 Active 2022 Sensorine ural hearing loss, bilateral ; Note: Date Diagnosed : 04/18/2023 2:04 PM (H90.3) Not Available [facility] 4 03:26:18 Itching of skin 554981182 Active 2022 Other pruritus; Note: Date Diagnosed : 04/18/2023 4:24 PM (L29.8) Not Available [facility] 4 03:26:18 Problem Notes None recorded. Procedures Surgical History Date Name Laterality Status Provider Name and Address Organization Details Recorded Time 01/06/2025 Air & Speech Audio with Tymps - 18268, 47434 & 22259 completed NAJMA DENIS, [facility] 100 [facility],[address], [address], [facility] - [facility] 01/06/2025 09:33:21 Imaging Results None recorded. Procedure Notes None recorded. Medical Equipment None Reported. Allergies Allergen ID Allergen Name Allergen Category Reaction Reaction Severity Criticality Documentation Date Start Date Code Code System Note Provider Name and Address Organization Details Recorded Time 725026 Fish (substanc e) food,medi cation Not available Not available Not available 04/07/2024 75552 1005 SNOMED React ion: Hives , Rash; Not Available [facility] 4 01:27:00 Medications Name Sig Start [...] 800 mg tablet active Medicatio n ID: [id number] Br and Name: ibuprofen Send Method: E-Prescri bed Subs Allowed: subs OK Medica tionGener icName: ibuprofen Not Available Not Available Not Available fluconazol e 150 mg tablet TAKE 1 TABLET BY MOUTH FOR 1 DOSE active Not Available Not Available No t Available senna 8.6 mg tablet active Medicatio n ID: [id number] Br and Name: senna Sen d Method: [...] Updated DateTime 12/25/2024 165.1 cm 25.8 kg/m2 28197.82 g [facility] 12/25/2024 11:38:16 Date Recorded Body height Body mass index (BMI) Body weight Provider Name and Address Organization Details Last Updated DateTime 06/17/2025 165.1 cm 25.8 kg/m2 27205.82 g [facility]et [facility] 06/17/2025 11:25:03 Social History None recorded. Functional Status None recorded. Mental Status None recorded. Family History Nothing Reported. Medical History No medical history recorded. Gynecological HistoryNo gynecological history recorded. Obstetrics History GPAL:G 0 P 0 0 0 0 Past Encounters Encounter ID Performer Location Encounter Start Date Encounter Closed Date Diagnosis/Indication Diagnosis SNOMED-CT Code Diagnosis ICD10 Code Diagnosis IMO Codes Diagnosis Note [id number] IMMANUEL CARCAMO PA-C [facility] [address] [address] 12/25/2024 11:28:54 12/25/2024 11:54:46 Itching of skin 241182794 L29.89 Sensorineu ral hearing loss of bilateral ears 728217011 H90.3 Bilateral tinnitus 37463 51211 102 H93.13 [id number] PATRIZIA FERREIRA [facility] [address] [address] 01/06/2025 09:20:17 01/06/2025 09:38:10 Sensorineural hearing loss of bilateral ears 308737797 H90.3 Audiologic al evaluation results: Normal sloping to mild sensorineu ral hearing loss with excellent word recognitio n, bilaterall y. Tympanomet ry:Right Ear:Type ALeft Ear:Type A [id number] LIOR KHANNA PA-C [facility] [address] [address] 06/17/2025 11:04:14 06/17/2025 11:41:18 Itching of skin 760549762 L29.89 Sensorineu ral hearing loss of bilateral ears 295813052 H90.3 Health Concerns Section Related Observation LastModified by Organization Detai ls LastModified Time None Recorded Concern Status LastModified by Organization Details LastModified Time None Recorded Advance Directives Directive None Recorded Payers Insurance Date Sequence Insurance Name Policy Number Policy Gordon Covered Member ID Gordon Member ID Guarantor Name 03/02/2025 1 [facility] [place] ([place]ICARE REPLAC[place]/ADV ANTAGE - HMO) Machelle Barroso [id number] Machelle Barroso 08/16/2025 1 [facility] - DOS ON OR AFTER 2023 - ONE [employer] (MEDICARE REPLACEMENT/ADV ANTAGE - HMO) Machelle Barroso [id number] Machelle Barroso Notes Date Note Type Note [...] itchier when she is anxious. Immanuel nguyen [place] - [facility] 12/25/2024 12:24:29 01/06/2025 text/html Audiological Evaluation HPIReported by PatientHearing LossFor hearing loss perceived, patient reportsgradual onset. PATRIZIA FERREIRA [address] [facility],[address], [address], [facility] 01/06/2025 09:35:45 06/17/2025 text/html ROS as [...] stable HF SNHL JAIMEE SNOW MD 100 [facility], [place], [address], [facility] 06/18/2025 14:16:14 OBGyn Episode No OBEpisode recorded.
--- OUTSIDE RECORDS SUMMARY | 2025-11-10 11:45 | XMS_ITS | Encounter Summary ---
Author Organization [employer] Address 75 [facility] 7t [place] [address] Care Team Providers Care Hematology Oncology Consultant Name Role Phone Brooklyn Jalloh MD Primary Care Provider [phone] Encounter Details Date Type Department Care Team (Late st Contact Info) Description 07/23/2023 Abstract [facility] MEDICINE [address] [place], [place] [phone] Brooklyn Jalloh MD [address] [place], [place] [phone] Social History Tobacco Use Types Packs/Day Years [...] documented as of this encounter Care Teams Hematology Oncology Consultant Relationship Specialty Start Date End Date Brooklyn Jalloh MD [address] [place] [address] PCP - General Family Medicine 07/17/21 documented as of this encounter
--- OUTSIDE RECORDS SUMMARY | 2025-11-10 11:45 | XMS_ITS | Clinical Summary ---
Author Organization 175 [facility] Address [address] [place] [address] Phone Care Team Providers Care Log Brander Name Role Phone Brooklyn Jalloh MD Primary Care Provider [phone] Allergies Active Allergy Reactions Criticality Noted Date [...] Care Team (Late st Contact Info) Description 12/13/2025 10:45 AM EST Office Visit [facility] [address] [address] Scot Durant DPM [address] [address] Health Maintenance Due Date Last Done Comments [...] Test (08/31/2024) Annual BMP Blood Test abstracted [facility] Provider HEALTH MAINTENANCE Final Result * HIV Screening (08/18/2024) [facility] HIV Screening abstracted [facility] Provider HEALTH MAINTENANCE Final Result * Hepatitis C Screening (08/18/2024) Pathologist [facility] Hepatitis C Screening abstracted [facility] Provider HEALTH MAINTENANCE Final Result * Lipid panel (02/21/2021) Pathologist [facility] LDL/HDL Ratio 0 Comment:abstracted, no inter pretation Triglycerides 0 mg/dL Comment:abstracted, no inter pretation Cholesterol 0 mg/dL Comment:abstracted, no inter pretation HDL 0 mg/dL Comment:abstracted, no inter pretation LDL Cholesterol 0 mg/dL Comment:abstracted, no inter pretation Blood Venous blood specimen / Unknown [facility] Provider LAB BLOOD ORDERABLES Julianne l Result from Last 3 Months or Most Recently Relevant to Health Maintenance Insurance [facility] MEDICARE Member Subscriber Plan / Payer (Ef fective 2018-Present) Name:MACHELLE CUNNINGHAM Relation to Subscriber:Self Name:Marquise Cunninghammen M Payer ID:[id number] Group ID:[id number] Type:Not on file Address: [address] [address] Care Teams Log Brander Relationship Specialty Start Date End Date Brooklyn Jalloh MD [address] [place] [address] PCP - General 09/12/22
--- OUTSIDE RECORDS SUMMARY | 2025-11-10 11:45 | XMS_ITS | Encounter Summary ---
Author Organization [employer] Address 75 [facility] 7t [place] [address] Care Team Providers Care Child Abuse Worker Name Role Phone Brooklyn Jalloh MD Primary Care Provider Encounter Details Date Type Department Care Team (Late st Contact Info) Description 03/07/2023 Orders Only [facility] MEDICINE [address] [place] [address] Brooklyn Jalloh MD [address] [place] [address] Rash of face (Primary Dx) Social History [...] as of this encounter Care Teams Child Abuse Worker Relationship Specialty Start Date End Date Brooklyn Jalloh MD [address] [place] [address] PCP - General Family Medicine 07/17/21 documented as of this encounter
--- OUTSIDE RECORDS SUMMARY | 2025-11-10 11:46 | XMS_ITS | Encounter Summary ---
Author Organization [employer] Address [address] [facility] [address] 7t [place] [address] Care Team Providers Care Infantry Weapons Crewmember Name Role Phone Brooklyn Jalloh MD Primary Care Provider [phone] Encounter Details Date Type Department Care Team (Late st Contact Info) Description 03/10/2024 Orders Only [facility] MEDICINE [address] [place], [place] [phone] Brooklyn Jalloh MD [address] [place] [address] Social History Tobacco Use Types Packs/Day Years [...] documented as of this encounter Care Teams Infantry Weapons Crewmember Relationship Specialty Start Date End Date Brooklyn Jalloh MD [address] [place] [address] PCP - General Family Medicine 07/17/21 documented as of this encounter
--- OUTSIDE RECORDS SUMMARY | 2025-11-10 11:46 | XMS_ITS | Encounter Summary ---
Author Organization [employer] Address [address] [facility] 7t [place] [address] Care Team Providers Care Rotary Drill Operator Helper Name Role Phone Brooklyn Jalloh MD Primary Care Provider [phone] Reason for Referral * Consultation (Routine) - Closed Specialty Diagnoses / Procedures Referred By Tenzin ahumada Referred To Contact Orthopaedic Surgery Diagnoses Primary osteoarthritis of both knees Brooklyn Jalloh MD [address] [place] [address] Phone: tel: fax: [facility] Orthopedics [address] [place] [address] [address] [place] [address] Phone: tel: Referral ID Status Reason Start Date Expiration Date V isits Requested Visits Authorized [id number] Closed Specialty Services Required 02/18/2024 02/17/2025 1 1 Encounter Details Date Type Department Care Team (Late st Contact Info) Description 02/18/2024 Orders Only [facility] MEDICINE [address] [place] [phone] Brooklyn Jalloh MD [address] [place], [place] [phone] Primary osteoarthritis of both knees (Primary Dx) [...] of this encounter Plan of Treatment Scheduled Referrals Name Type Priority Associated Diagnoses [...] PM EDT Narrative 03/09/2024 2:27 PM EDT [address] [address] XRay Report Signed Patient: Machelle Wooten MR#: [id number] : 1970 Acct:[id number] Age/Sex: 54 / F ADM Date: 03/09/24 Loc: HO.ED Attending Dr: Ordering Physician: Zack Lainez Date of Service: 03/09/24 Procedure(s): XR chest 2V Accession Number(s): [id number] cc: Brooklyn Jalloh; Zack Lainez EXAMINATION: XR [...] in OV> 03/09/24 1424 DD/ 1408 TD/TT: Obiee Consultant: CLEO Procedure Note Donotuseinterpreter, Image - 03/09/[address] [address] XRay Report Signed Patient: Machelle WootenMR#: [id number] : 1970Acct:[id number] Age/Sex: 54 / FADM Date: 03/09/24 Loc: HO.ED Attending Dr: Ordering Physician: Zack Lainez Date of Service: 03/09/24 Procedure(s): XR chest 2V Accession Number(s): [id number] cc: Brooklyn Jalloh; Zack Lainez EXAMINATION: XR [...] DO inOV> 03/09/24 1424 DD/ 1408 TD/TT: Obiee Consultant: CLEO [facility] External Provider IMG XR PROCEDURES Edited Result - Final documented in this encounter Visit Diagnoses Diagnosis Primary osteoarthritis of both knees- Primary documented in this encounter Additional Health Concerns Assessment Noted Time PHQ-9 Depression Total Score: 6 02/05/20 23 11:27 AM EDT documented as of this encounter Care Teams Rotary Drill Operator Helper Relationship Specialty Start Date End Date Brooklyn Jalloh MD [address] [place] [address] PCP - General Family Medicine 07/17/21 documented as of this encounter
--- OUTSIDE RECORDS SUMMARY | 2025-11-10 11:46 | XMS_ITS | Encounter Summary ---
Author Organization [employer] Address 75 [facility] 7t [place] [address] Care Team Providers Care Visual Basic Programmer Name Role Phone Brooklyn Jalloh MD Primary Care Provider [phone] Reason for Visit * Reason Comments Med Refill Encounter Details Date Type Department Care Team ([facility] st Contact Info) Description 08/18/2025 Refill [facility] MED[facility] [address] [place] [address] Brooklyn Jalloh MD [address] [place] [address] Cervical spondylosis; Degeneration of lumbar intervertebral disc [...] as of this encounter Care Teams Visual Basic Programmer Relationship Specialty Start Date End Date Brooklyn Jalloh MD [address] [place] [address] PCP - General Family Medicine 07/17/21 documented as of this encounter
--- OUTSIDE RECORDS SUMMARY | 2025-11-10 11:46 | XMS_ITS | Encounter Summary ---
Author Organization [employer] Address 75 [facility] 7t [place] [address] Care Team Providers Care Channel Process Plant Operator Name Role Phone Brooklyn Jalloh MD Primary Care Provider [phone] Encounter Details Date Type Department Care Team (Latest Contact Info) Description 06/27/2022 Abstract [facility] CONVERSIONS Dental, Provider, [...] on filedocumented in this encounter Care Teams Channel Process Plant Operator Relationship Specialty Start Date End Date Brooklyn Jalloh MD [address] [place] [address] PCP - General Family Medicine 07/17/21 documented as of this encounter
--- OUTSIDE RECORDS SUMMARY | 2025-11-10 11:46 | XMS_ITS | Encounter Summary ---
Author Organization [employer] Address [address] [facility] 7t [place] [address] Care Team Providers Care Reference Investigator Name Role Phone Brooklyn Jalloh MD Primary Care Provider [phone] Reason for Visit * Reason Comments Med Refill Encounter Details Date Type Department Care Team ([facility] st Contact Info) Description 08/23/2025 Refill [facility] MEDICINE [address] [place] [address] Brooklyn Jalloh MD [address] [place] [address] Social History Tobacco Use Types Packs/Day Years [...] documented as of this encounter Care Teams Reference Investigator Relationship Specialty Start Date End Date Brooklyn Jalloh MD [address] [place] [address] PCP - General Family Medicine 07/17/21 documented as of this encounter
--- OUTSIDE RECORDS SUMMARY | 2025-11-10 11:46 | XMS_ITS | Encounter Summary ---
Author Organization [employer] Address [address] [facility] 7t [place] [address] Care Team Providers Care Family Day Care Provider Name Role Phone Brooklyn Jalloh MD Primary Care Provider [phone] Reason for Visit * Reason Comments Med Refill Encounter Details Date Type Department Care Team ([facility] st Contact Info) Description 08/20/2025 Refill [facility] MED[facility]INE [address] [place] [address] Brooklyn Jalloh MD [address] [place] [address] Social History Tobacco Use Types Packs/Day Years [...] documented as of this encounter Care Teams Family Day Care Provider Relationship Specialty Start Date End Date Brooklyn Jalloh MD [address] [place] [address] PCP - General Family Medicine 07/17/21 documented as of this encounter
--- OUTSIDE RECORDS SUMMARY | 2025-11-10 11:46 | XMS_ITS | Encounter Summary ---
Author Organization [employer] Address [address] [facility] [address] 7t [place] [address] Care Team Providers Care Pediatrician Name Role Phone Brooklyn Jalloh MD Primary Care Provider [phone] Reason for Visit * Reason Comments Med Refill Encounter Details Date Type Department Care Team (Late st Contact Info) Description 10/25/2025 Refill [facility] [address] [place], [place] [phone] Georgette Tellez DO [address] [place] [address] Social History Tobacco Use Types Packs/Day Years [...] documented as of this encounter Care Teams Pediatrician Relationship Specialty Start Date End Date Brooklyn Jalloh MD [address] [place] [address] PCP - General Family Medicine 07/17/21 documented as of this encounter
--- OUTSIDE RECORDS SUMMARY | 2025-11-10 11:46 | XMS_ITS | Encounter Summary ---
Author Organization [employer] Address [address] [facility] 7t [place] [address] Care Team Providers Care Vp Client Services Name Role Phone Brooklyn Jalloh MD Primary Care Provider [phone] Encounter Details Date Type Department Care Team (Late st Contact Info) Description 08/24/2025 Orders Only [facility] MEDICINE [address] [place] [address] Brooklyn Jalloh MD [address] [place] [address] Social History Tobacco Use Types Packs/Day Years [...] as of this encounter Care Teams Vp Client Services Relationship Specialty Start Date End Date Brooklyn Jalloh MD [address] [place] [address] PCP - General Family Medicine 07/17/21 documented as of this encounter
--- OUTSIDE RECORDS SUMMARY | 2025-11-10 11:46 | XMS_ITS | Encounter Summary ---
Author Organization [employer] Address [address] [facility] [address] [place] [address] Care Team Providers Care Service Architect Name Role Phone Brooklyn Jalloh MD Primary Care Provider [phone] Reason for Visit * Reason Comments Med Refill Encounter Details Date Type Department Care Team (Late st Contact Info) Description 09/24/2025 Refill [facility] [address] [place] [address] Brooklyn Jalloh MD [address] [place] [address] Cough in adult patient Social History Tobacco [...] documented as of this encounter Care Teams Service Architect Relationship Specialty Start Date End Date Brooklyn Jalloh MD [address] [place] [address] PCP - General Family Medicine 07/17/21 documented as of this encounter
--- OUTSIDE RECORDS SUMMARY | 2025-11-10 11:46 | XMS_ITS | Encounter Summary ---
Author Organization [employer] Address [address] [facility] 7t [place] [address] Care Team Providers Care General Purchasing Agent Name Role Phone Brooklyn Jalloh MD Primary Care Provider [phone] Reason for Visit * Reason Onset Date Comments Appointment Request 03/19/2025 Encounter Details Date Type Department Care Team ([facility] st Contact Info) Description 03/19/[address] [facility] MEDICINE [address] [place] [address] Brooklyn Jalloh MD [address] [place] [address] Appointment Request Social History Tobacco Use Types [...] as of this encounter Care Teams General Purchasing Agent Relationship Specialty Start Date End Date Brooklyn Jalloh MD [address] [place] [address] PCP - General Family Medicine 07/17/21 documented as of this encounter
--- OUTSIDE RECORDS SUMMARY | 2025-11-10 11:46 | XMS_ITS | Encounter Summary ---
Author Organization [employer] Address [address] [facility] [address] 7[address] [place] [address] Care Team Providers Care Field Instructor Name Role Phone Brooklyn Jalloh MD Primary Care Provider [phone] Encounter Details Date Type Department Care Team (Late st Contact Info) Description 11/08/[address] [facility] MEDICINE [address] [place] [address] Brooklyn Jalloh MD [address] [place] [address] Moderate persistent asthma, unspecified whether complicated Social History Tobacco Use Types Packs/Day Years [...] as of this encounter Miscellaneous Notes * Addendum Note - Jorge Hawk RN - 11/08/2025 11:35 AM ESTAddended by: JORGE HAWK on: 11/08/2025 11:35 AM Modules accepted: Orders * Telephone Encounter - Kelli England - 11/08/2025 10:57 AM EST Pt walked in requesting that pcp send order for nebulizer machines tubing. documented in this encounter Plan of Treatment Not on file documented as of this encounter Visit Diagnoses Diagnosis Moderate persistent asthma, unspecified whether complicated documented in this encounter Additional Health Concerns Assessment Noted Time PHQ-9 Depression Total Score: 19 025 11:41 AM EDT documented as of this encounter Care Teams Field Instructor Relationship Specialty Start Date End Date Brooklyn Jalloh MD [address] [place] [address] PCP - General Family Medicine 07/17/21 documented as of this encounter
--- OUTSIDE RECORDS SUMMARY | 2025-11-10 11:46 | XMS_ITS | Encounter Summary ---
Author Organization [employer] Address [address] [facility] 7t [place] [address] Care Team Providers Care Auctioneer Tobacco Name Role Phone Brooklyn Jalloh MD Primary Care Provider [phone] Encounter Details Date Type Department Care Team (Latest Contact Info) Description 04/06/2021 Abstract [facility] CONVERSIONS Dental, Provider, DDS Social [...] on filedocumented in this encounter Care Teams Auctioneer Tobacco Relationship Specialty Start Date End Date Brooklyn Jalloh MD [address] [place] [address] PCP - General Family Medicine 07/17/21 documented as of this encounter
--- OUTSIDE RECORDS SUMMARY | 2025-11-10 11:46 | XMS_ITS | Encounter Summary ---
Author Organization [employer] Address [address] [facility] 7t [place] [address] Care Team Providers Care Geodesy Teacher Name Role Phone Brooklyn Jalloh MD Primary Care Provider [phone] Reason for Visit * Reason Comments Med Refill Encounter Details Date Type Department Care Team ([facility] st Contact Info) Description 11/08/2025 Refill [facility] MEDICINE [address] [place] [address] Brooklyn Jalloh MD [address] [place] [address] Moderate persistent asthma, uncomplicated; Cough in adult patient Social History Tobacco [...] encounter Visit Diagnoses Diagnosis Moderate persistent asthma, uncomplicated Cough in adult patient documented in this encounter Additional Health Concerns Assessment Noted Time PHQ-9 Depression Total Score: 19 025 11:41 AM EDT documented as of this encounter Care Teams Geodesy Teacher Relationship Specialty Start Date End Date Brooklyn Jalloh MD [address] [place] [address] PCP - General Family Medicine 07/17/21 documented as of this encounter
--- OUTSIDE RECORDS SUMMARY | 2025-11-10 11:46 | XMS_ITS | Encounter Summary ---
Author Organization [employer] Address 75 [facility] 7t [place] [address] Care Team Providers Care Pv Installer Tech Name Role Phone Brooklyn Jalloh MD Primary Care Provider [phone] Encounter Details Date Type Department Care Team (Late st Contact Info) Description 11/12/2022 Orders Only [facility] MEDICINE [address] [place], [place] [phone] Brooklyn Jalloh MD [address] [place], [place] [phone] Social History Tobacco Use Types Packs/Day Years [...] on filedocumented in this encounter Care Teams Pv Installer Tech Relationship Specialty Start Date End Date Brooklyn Jalloh MD [address] [place] [address] PCP - General Family Medicine 07/17/21 documented as of this encounter
--- OUTSIDE RECORDS SUMMARY | 2025-11-10 11:46 | XMS_ITS | Encounter Summary ---
Author Organization [employer] Address [address] [facility] 7t [place] [address] Care Team Providers Care Unit Secy Name Role Phone Brooklyn Jalloh MD Primary Care Provider [phone] Encounter Details Date Type Department Care Team ([facility] st Contact Info) Description 03/19/2025 Orders Only [facility] MEDICINE 230 [place] [address] Brooklyn Jalloh MD [address] [place] [address] Contact with and (suspected) exposure to infections [...] Results * T-SPOT??.TB (04/02/2025 11:49 AM EDT) [facility] T Spot TB Negative Negative [facility] Comment:A negative test resu [...] as aquantitative test. TS PANEL A 0 [facility] TS PANEL B 0 [facility] Negative Control Passed [facility] Positive Control Passed [facility] Comment:For additional infor luke, please refer tohttp://education.Unsilo/faq/MSQ864(This link is being provided for informational/educational purposes only.)THIS TEST WAS PERFORMED AT:[facility] [id number] [place] [address]XXCAMPSMARY SNOW MD,PHD 04/02/2025 11:4 9 AM EDT 04/02/2025 1:07 PM EDT us Brooklyn Jalloh MD LAB BLOOD ORDERABLES Final Res ult [facility] [address] [place] [phone] * Hepatitis C Antibody with Reflex to HCV, RNA, Quantitative, Real-Time PCR (04/02/2025 11:49 AM EDT) Hepatitis C Antibody Nonreactive Nonreactive [facility] Comment:Antibodies to HCV no t detected; does not exclude early acuteHCV infection. Blood Venous blood specimen / Unknown 04/02/2025 11:49 AM EDT 04/02/2025 1:17 PM EDT us Brooklyn Jalloh MD LAB BLOOD ORDERABLES Final Res ult Performing Organization Address [facility] Co de Phone Number [facility] [address] [place] [phone] * HIV-1/2 Antigen and Antibodies, Fourth Generation, with Reflexes (04/02/2025 11:49 AM EDT) HIV AB/AG Nonreactive Nonreactive [facility] Comment:HIV-1 p24 Ag and/or HIV-1/HIV-2 Ab not detected.A test result that is nonreactive does not exclude thepossibility of exposure to or infection with HIV-1 and/orHIV-2. Nonreactive results in this assay for individualswith prior exposure to HIV-1 and/or HIV-2 may be due toantigen and antibody levels that are below the limit ofdetection of this assay.The [employer] HIV Ag/Ab Combo assay result andsupplemental assay results should be interpreted inconjunction with the patient's clinical presentation,history and other laboratory results. If the results areinconsistent with clinical evidence, additional testing issuggested to confirm the result. Blood Venous blood specimen / Unknown 04/02/2025 11:49 AM EDT 04/02/2025 1:17 PM EDT us Brooklyn Jalloh MD LAB BLOOD ORDERABLES Final Res ult Performing Organization Address [facility] Co de Phone Number [facility] [address] [place] [phone] documented in this encounter Visit Diagnoses Diagnosis Contact with and (suspected) exposure to infections with a predominantly sexual mode of transmission- Primary documented in this encounter Additional Health Concerns Assessment Noted Time PHQ-9 Depression Total Score: 5 03/16/20 24 11:45 AM EDT documented as of this encounter Care Teams Unit Secy Relationship Specialty Start Date End Date Brooklyn Jalloh MD [address] [place] [address] PCP - General Family Medicine 07/17/21 documented as of this encounter
--- OUTSIDE RECORDS SUMMARY | 2025-11-10 11:46 | XMS_ITS | Encounter Summary ---
Author Organization [employer] Address [address] [facility] 7t [place] [address] Care Team Providers Care Electrical Contractor Name Role Phone Brooklyn Jalloh MD Primary Care Provider [phone] Reason for Visit * Reason Comments Med Refill Encounter Details Date Type Department Care Team ([facility] st Contact Info) Description 08/05/2025 Refill [facility] MEDICINE [address] [place] [address] Brooklyn Jalloh MD [address] [place] [address] Social History Tobacco Use Types Packs/Day Years [...] housing situation today? I have stella callse 03/05/[address] you li [...] documented as of this encounter Care Teams Electrical Contractor Relationship Specialty Start Date End Date Brooklyn Jalloh MD [address] [place] [address] PCP - General Family Medicine 07/17/21 documented as of this encounter
--- OUTSIDE RECORDS SUMMARY | 2025-11-10 11:47 | XMS_ITS | Encounter Summary ---
Author Organization [employer] Address [address] [facility] 7t [place] [address] Care Team Providers Care Dot Net Architect Name Role Phone Brooklyn Jalloh MD Primary Care Provider [phone] Reason for Visit * Reason Comments Med Refill Encounter Details Date Type Department Care Team ([facility] st Contact Info) Description 11/03/[address] [facility] MEDICINE [address] [place] [address] Brooklyn Jalloh MD [address] [place] [address] Social History Tobacco Use Types Packs/Day Years [...] documented as of this encounter Care Teams Dot Net Architect Relationship Specialty Start Date End Date Brooklyn Jalloh MD [address] [place] [address] PCP - General Family Medicine 07/17/21 documented as of this encounter
== END 2025-11-10 10:28 | disposition home or self-care (01) ==
LOC: HO.HOS 09:49
PROVIDERS: PCP General Practice; Visit Provider Orthopaedic Surgery
DX: M17.0 Bilateral primary osteoarthritis of knee (principal)
CPT/HCPCS: 99213; G2211

== ENCOUNTER → 2025-11-10 09:48 | Outpatient (BNVA) | payer OTHER, SELFPAY | PROVIDERS: PCP General Practice; Visit Provider Orthopaedic Surgery | DX: M17.0 Bilateral primary osteoarthritis of knee (principal); I10 Essential (primary) hypertension; E78.5 Hyperlipidemia, unspecified; R07.2 Precordial pain | CPT/HCPCS: 99212 ==

== ENCOUNTER 2025-11-10 13:50 | Outpatient (AMB) | payer OTHER, SELFPAY ==
--- NOTE | 2025-11-10 13:52 | A.OFFVIS_ITS ---
Vital Signs 11/10/25 13:56 Height 5 ft 5 in Weight 198 lb 6.656 oz BMI 33.0 BP 120/72 Blood Pressure Location Rt brachial Position Sitting Pulse 80 Pulse Source Pulse Oximeter Intake Visit Reasons: 6 wk fu after echo Intake Note: 6wk f/up- after echo Environmental Planning Engineer Required: Yes Environmental Planning Engineer Language: Fishing Tool Operator Name: [email or web address] Accompanied by: Self / Same As Patient Allergies shrimp (SHRIMP) Allergy (Unknown, Verified 11/10/25 10:01) UNKNOWN Medication List - Last Reconciled 11/10/25 by Shan Vargas NP acetaminophen ER (Tylenol 8 Hour) 650 mg PO Q8H albuterol sulfate 90 mcg/actuation (Ventolin HFA) 2 puffs inhalation QID PRN amoxicillin-pot clavulanate 875-125 mg 1 tab PO BID atorvastatin 20 mg PO DAILY baclofen 10 mg PO DAILY buspirone 10 mg PO BID docusate sodium 100 mg PO BID PRN fluocinolone acetonide oil 0.01% 3 drps otic (ears) fluoxetine 40 mg PO QAM idzqqenuvis-rnwkthorn-rdebhanm 200-62.5-25 mcg (Trelegy Ellipta) 1 inh inhalation DAILY furosemide (Lasix) 40 mg PO QAM gabapentin 100 mg PO DAILY gabapentin 400 mg PO BID ipratropium bromide 2 sprays intranasal TID-QID PRN 30 days lactulose 10 grams (15 mL) PO DAILY PRN leg brace (Knee Support Brace) SWETA-PULL LITE, LT, L lidocaine 5% 1 patch topical DAILY lisinopril 5 mg PO DAILY loratadine 10 mg PO DAILY melatonin mg PO omeprazole 20 mg PO DAILY potassium chloride ER (K-Tab) 20 mEq PO BID semaglutide mg subcut simethicone (Gas Relief (simethicone)) 80 mg PO Q8H PRN sucralfate 1 g PO BID topiramate (Topamax) 25 mg PO DAILY trazodone 25 mg PO DAILY triamcinolone acetonide 0.1% appl topical HPI Comments Details: This is a 55-year-old female patient coming in for a follow-up visit. Patient with a history of hypertension, dyslipidemia, prediabetes, obesity, and family history of coronary artery disease. Patient was previously seen in the office for further evaluation of chest discomfort which was deemed to be likely due to pericarditis and was started on colchicine and ibuprofen. Patient recently completed a echocardiogram and is here to review the results for that. Patient is reporting resolution of all her symptoms and has not had any exertional chest discomfort, shortness of breath, palpitations, dizziness, orthopnea, PND, leg edema, presyncope or syncope. Patient reported completion of her colchicine and ibuprofen as well. Patient is otherwise reporting compliance with all her medications. [facility] Medical History Other and unspecified hyperlipidemia Essential hypertension Family history of coronary artery disease Bilateral knee pain Chronic pain Fibromyalgia Surgical History History of cholecystectomy H/O section H/O lateral meniscus repair of left knee History of hysterectomy Family History Father History of open heart surgery Brother Hypertension Mother Colon cancer Social History Household Members Other:: son Housing: Apartment Alcohol intake: never Patient Tobacco Use Status: Never used Tobacco Current occupational status: disabled Current occupation: Right Handed Review of Systems Const Denies chills, Denies fatigue, Denies fever(s), Denies frequent falls, Denies weakness, Denies weight gain and Denies weight loss ENT Denies dizziness Card Denies chest pain, Denies leg edema, Denies lightheadedness, Denies palpitations, Denies dyspnea and Denies dyspnea on exertion Resp Denies cough, Denies dyspnea and Denies dyspnea on exertion GI Denies hematochezia Musc Denies abnormal gait, Denies muscle weakness, Denies numbness, Denies radiating pain into limb and Denies tingling Neuro Denies abnormal gait, Denies dizziness, Denies frequent falls, Denies numbness, Denies tingling and Denies weakness Endo Denies fatigue and Denies palpitations Physical Exam Vital Signs: Last Vital Signs Pulse 80 11/10/25 13:56 BP 120/72 11/10/25 13:56 BMI result Body Mass Index 33.0 Const General: cooperative, healthy appearing, comfortable and no acute distress Orientation/consciousness: patient oriented x3 HEENT Head: Yes normal to inspection Neck Neck: Yes normal visual inspection, Yes trachea midline and Yes supple Chest Chest palpation & inspection: normal inspection of the chest Resp Effort & Inspection: normal respiratory effort Auscultation: clear to auscultation bilaterally, no crackles, no rales, no rh onchi and no wheezes Cardio Jugular venous distension: no JVD Palpation: normal PMI Rate: regular rate Rhythm: regular rhythm Heart sounds: S1 normal heart sound present, S2 normal heart sound present, no click, no gallops, no murmurs and no rubs Peripheral pulses: Peripheral pulses 2+ throughout GI Inspection: Yes normal to inspection Palpation (GI): Soft to palpation Auscultation: normal bowel sounds Skin General skin exam: no rashes or lesions noted Neuro General: patient oriented x3 Extrem General: Yes normal to inspection, No no pedal edema and No calf tenderness Psych Appearance: grossly normal Mental Status: mental status grossly normal Speech and movement: Normal speech and movement present Assessment & Plan Assessment & Plan (1) Precordial chest pain: Code(s): R07.2 - Precordial pain Category: Medical Plan: Patient was in the ER for chest pain atypical in nature as patient would get them with deep inspiration or with positional changes. Cardiac biomarkers were negative. Given history of pericarditis, patient was started on colchicine and ibuprofen. On 10/05/2025-patient underwent an echocardiogram that showed a normal LV systolic function with the ejection fraction between 60-65% with mild LVH with grade 1 diastolic dysfunction. With completion of colchicine and ibuprofen therapy, patient reports resolution of her chest pain. Patient denies any exertional cardiac symptoms. No further testing indicated at this time. Chest CTA did not show any cardiovascular disease. However, if patient has any recurrence in her symptoms, we can pursue further diagnostic testing. Patient understanding and agreeable of the plan. (2) Essential hypertension: Code(s): I10 - Essential (primary) hypertension Category: Medical Plan: Blood pressure today is well-controlled. Continue lisinopril therapy. Advised on blood pressure goal less than 130/80. Advised on low-salt diet. (3) Other and unspecified hyperlipidemia: Code(s): E78.5 - Hyperlipidemia, unspecified Category: Medical Plan: Continue statin therapy. Patient states that her lipid profile has been stable with her PCP. Advised LDL goal less than 70. Advised on heart healthy diet, regular exercise, losing weight, med compliance, and aggressive management of vascular risk factors. Follow up in 1 year, sooner if needed. In the interim, patient will call the office with any concerns or change in symptoms. Advised to seek ER care in case of exertional chest pain not resolved with rest. This note was generated using voice recognition software. While every effort has been made to ensure accuracy and proper agricultural equipment operator, there may be occasional errors that could affect the content or meaning of the described symptoms. Medications: Discontinued ibuprofen Discontinued Reason: Patient Completed Course 600 mg PO Q6H PRN 30 tabs 0RF pain colchicine Discontinued Reason: Patient Completed Course 0.6 mg PO DAILY 120 days 120 caps 0RF ibuprofen Discontinued Reason: Patient Completed Course 800 mg PO TID 14 days 42 tabs 0RF Coding Level of Care Code Est Pt Level 4 (25502) Add On Problem Visit Only Diagnoses Precordial chest pain R07.2 Essential hypertension I10 Other and unspecified hyperlipidemia E78.5 Time Spent (min) 31 Comment Time spent in reviewing the chart, test results, assessment, counseling and documentation.
[2025-11-10 13:56] VITALS: BP 120/72; PULSE 80; BMI 33.0
== END 2025-11-10 14:16 | disposition home or self-care (01) ==
LOC: HO.HCS 13:50
PROVIDERS: PCP General Practice
DX: R07.2 Precordial pain (principal); I10 Essential (primary) hypertension; E78.5 Hyperlipidemia, unspecified
CPT/HCPCS: 99214; G2211